=== PATIENT | male | born 1935 | race Caucasian/White ===

== ENCOUNTER 2017-03-08 17:39 | Emergency (ER) | payer OTHER | END 2017-03-08 18:00 | disposition left against medical advice (07) | LOC: C.EDB 17:40 | DX: Z53.21 Procedure and treatment not carried out due to patient leaving prior to being seen by health care provider (principal) ==

== ENCOUNTER → 2017-03-17 | Outpatient (CLI) | payer OTHER, MEDICARE ==
--- NOTE | 2017-03-17 10:49 | DIAGNOSTIC IMAGING REPORT ---
PET/CT HEAD AND NECK PROTOCOL CLINICAL HISTORY: Head and neck cancer. TECHNIQUE: A PET/CT was performed from the skull vertex through the upper thighs following intravenous injection of 13.02 mCi of F 18 FDG IV. The injection was performed at 7:41 AM on March 17, 2017 and imaging began at 8:45 AM on March 17, 2017. Unenhanced CT was performed for attenuation correction purposes and anatomic localization. COMPARISON STUDY: None. FINDINGS: Head and neck: No intracranial masses are identified on this unenhanced CT. Note is made of a 3.9 x 2.7 cm mass centered within the right palatine tonsils shown on axial image 22 of 267. This has marked FDG uptake with an SUV max of 9.2. No additional mucosal lesions are identified on this examination. There is a mildly enlarged right level 2 cervical lymph node shown on image 24 that measures 1.7 x 1.2 cm. This has moderate FDG uptake with an SUV max of 4. No additional enlarged cervical lymph nodes are present. There are no additional sites of abnormal FDG uptake within the neck. Chest: No enlarged thoracic lymph nodes are present. The heart is mildly enlarged. Extensive coronary artery calcification is noted. Mild dilatation of the ascending aorta, measuring 4 cm at the level the main pulmonary artery is noted. There are no suspicious pulmonary nodules although lungs are suboptimally assessed due to respiratory motion. Moderate emphysema is present. Groundglass opacities favor atelectasis. There is no pneumothorax or pleural effusion. Abdomen and Pelvis: No abnormal FDG uptake is identified within the abdomen or pelvis. Marked left renal atrophy is noted likely on the basis of renal artery stenosis. A 1.8 cm partially calcified abnormality of the mid to lower pole of the left kidney is noted with adjacent linear soft tissue stranding. This could reflect post therapeutic change. This lesion is suboptimal assessed on this exam but has no significant FDG uptake. There is a probable 1.4 cm right renal cyst although this is suboptimally assessed on this exam. No abdominal or pelvic lymphadenopathy is present. This extensive atherosclerotic plaque of the aortoiliac system. Gallstones are noted within the gallbladder. There is moderate asymmetric wall thickening of the right posterior lateral wall the bladder. An associated 2 cm focus protruding from the wall the bladder could reflect a diverticulum. This appears slightly complex. There are postsurgical findings involving the rectum. There is no bowel obstruction. A 3.8 cm water attenuation tubular serpiginous abnormality of the posterior right thigh has no FDG uptake. This is likely benign. Musculoskeletal: No suspicious skeletal lesions are identified. IMPRESSION: 1. 3.9 x 2.7 cm FDG avid right palatine tonsillar mass suggestive of a primary head and neck malignancy. 2. Mildly enlarged right level 2 cervical lymph node which demonstrates moderate FDG uptake which is highly suggestive of xiomara spread of disease. No contralateral lymphadenopathy. No evidence of distant metastatic disease. 3. Moderate asymmetric wall thickening of the right posterolateral wall of the bladder with a possible associated diverticulum which appears slightly complex. These findings are nonspecific and could be correlated with cystoscopy to exclude a urothelial lesion. 4. Moderate emphysema. 5. Marked left renal atrophy likely on the basis of renal artery stenosis. 1.8 cm partially calcified left renal lesion which may reflect a treated renal lesion. No abdominal lymphadenopathy. Electronically signed by: Dwain Gonzalez M.D. 03/17/2017 10:48 AM Dictated Date/Time: 03/17/2017 9:58 AM
== END | disposition home or self-care (01) ==
LOC: C.PET 06:58
PROVIDERS: ATTEND Internal Medicine
DX: C32.9 Malignant neoplasm of larynx, unspecified (principal)

== ENCOUNTER 2024-07-09 10:18 | Inpatient (IN) ==
--- OUTSIDE RECORDS SUMMARY | 2024-07-09 10:25 | External Medical Summary | Summary of Care ---
Author Name Unknown Organization [facility] Address [address] [facility] [place] [address] Phone [phone] Care Team Providers Care Needle Grinder Name Role Phone Sunny Hatfield DO Primary Care Provider Reason for Visit * Reason Comments Follow Up 7 month follow up. B P labile- when high will get a headache and when low will off balance and bump into things. SOB noticeable with any exertion. Denies chest pain, edema and palpitations. Encounter Details Date Type Department Care Team (Latest Contact Info) Description 03/27/2024 3:00 PM EDT Office Visit Cardiology, [facility] [address] [place] [address] Yassine Mock PA-C [address] [place] [address] Uncontrolled hypertension*; ASCVD (arteriosclerotic cardiovascular disease); Dyslipidemia, goal LDL below 70; HTN, goal below 130/80; Hx of CABG; History of tobacco abuse Allergies Active Allergy Reactions Criticality Noted Date Comments Ciprofloxacin Nausea/vomiting 06/30/2012 Iodinated Contrast Media 01/31/2020 IVP DYE kidney issues documented as of this encounter (statuses as of 03/28/2024) Medications Medication Sig Dispensed Refills Start Date End Date Status nitroglycerin (NITROSTAT) 0.4 MG SUBL 2 02/11/2017 Active Fluticasone-Salm eterol 250-50 MCG/DOSE Inhalation Aerosol Powder Breath Activated 2 times a day. Acti ve aspirin enteric coated 81 MG TBEC Take by mouth 2 times a day. Active acetaminophen (TYLENOL) 500 MG Tablet Take by mouth as needed. Active Albuterol Sulfate HFA 108 (90 Base) MCG/ACT Inhalation Aerosol Solution daily as needed. 08/22/2007 Ac tive Simethicone 80 MG Oral Tablet Chewable Take 1 Tablet by mouth every 6 hours as needed for Gas. Active Tamsulosin HCl 0.4 MG Oral Capsule (Flomax)Indicati ons:Urinary retention Take 1 Capsule by mouth in the morning. 90 Capsule 3 08/05/2023 Active Rosuvastatin Calcium 20 MG Oral Tablet (Crestor) Take 1 Tablet by mouth in the morning. 90 Tablet 3 08/05/2023 Active Lisinopril 5 MG Oral Tablet (Prinivil) Take 1 Tablet by mouth in the morning. 90 Tablet 3 08/05/2023 Active Finasteride 5 MG Oral Tablet (Proscar) Take 1 Tablet by mouth in the morning. 90 Tablet 3 08/05/2023 Active Clopidogrel Bisulfate 75 MG Oral Tablet (Plavix) Take 1 Tablet by mouth in the morning. 30 Tablet 11 08/05/2023 Active Metoprolol Succinate ER 25 MG Oral Tablet Extended Release 24 Hour (toPROL XL) Take 1 Tablet by mouth in the morning. 90 Tablet 3 08/05/2023 Active Additional Information Patient taking differently:25 mg OralBID (.AM/PM), Reported on 03/27/2024 amLODIPine Besylate 5 MG Oral Tablet (Norvasc) Take 1 Tablet by mouth in the morning and 1 Tablet before bedtime. 180 Tablet 3 03/07/2024 Active Additional Information Patient taking differently:5 mg OralDaily(AM), Reported on 03/27/2024 Pantoprazole Sodium 40 MG Oral Tablet Delayed Release (Protonix)Indica tions:Gastroesop hageal reflux disease without esophagitis Take 1 Tablet by mouth in the morning and 1 Tablet before bedtime. 60 Tablet 03/17/2024 Active Isosorbide Dinitrate 5 MG Oral Tablet (Isordil) Take one tablet in the morning, early afternoon, and early evening 270 Tablet 3 03/27/2024 Active hydrALAZINE HCl 10 MG Oral Tablet (Apresoline) Take 1 Tablet by mouth in the morning and 1 Tablet at noon and 1 Tablet before bedtime. 270 Tablet 3 03/27/2024 Active Isosorbide Dinitrate 10 MG Oral Tablet (Isordil) Take 1 Tablet by mouth 2 times a day. 180 Tablet 3 03/17/2024 4 Discontinued documented as of this encounter (statuses as of 03/28/2024) Active Problems Problem Noted Date Diagnosed Date Chronic kidney disease, stage 3b 08/30/2023 Overview: Per CKD protocol Sacroiliitis 08/05/2023 Chronic obstructive pulmonary disease 08/05/2023 Benign hypertension with chronic kidney disease, stage IV 08/05/2023 Asymptomatic carotid artery stenosis 12/09/2022 ASCVD (arteriosclerotic cardiovascular disease) 11/04/2020 Hx of CABG 11/04/2020 History of tobacco abuse 11/04/2020 HTN, goal below 130/80 11/04/2020 Dyslipidemia, goal LDL below 70 11/04/2020 Benign essential hypertension 07/07/2019 Peripheral vascular disease 07/07/2019 Coronary artery disease involving coronary bypas s graft 07/07/2019 Encounter for antineoplastic chemotherapy 2016 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 03/19 Cancer Staging:Clinical stage from 04/26/2017:Stage II(A - Asymptomatic) - Signed by Jorgito Moncada MD on 04/26/2017 documented as of this encounter (statuses as of 03/28/2024) Resolved Problems Problem Noted Date Diagnosed Date Resolved Date Chronic renal impairment, stage 3b 08/05/2023 09/02/2023 Chronic renal insufficiency, stage III (moderate) 07/07/2019 09/02/2023 Overview: Per CKD protocol documented as of this encounter (statuses as of 03/28/2024) Immunizations Name Administration Dates Next Due COVID-19 mRNA, LNP-s, No Pre serve, 2-Dose Series (Moderna) 09/24/2020,08/20/2020 Pneumococcal Polysaccharide PPV23 (Pneumovax) 11/02/2018,04/01/2017 RSV Vac., Recomb, Adjuvant, PF,0.5 Ml (Arexvy) 07/28/2023 Seasonal Influenza, PF, 6 M & above, IM , (FluLaval or Fluzone) 04/30/2023 Seasonal Influenza, Quadriva lent Hd, 65+ Yrs 04/24/2022,04/23/2021,04/13/2020 Seasonal Influenza, Recombin ant, RIV4, PF, (Flublock) 05/03/2019,04/29/2018 Seasonal Influenza, Trivalen t, (IIV3), with Preserv, (Fluzone) 04/13/2020 Varicella Zoster Vaccine (Adult) 06/18/2013 Zoster Vaccine Recombinant (Shingrix) 08/08/2020 ,05/31/2020 documented as of this encounter Social History Tobacco Use Types Packs/Day Years Used Date Smoking Tobacco: Former Cigarettes 1 30 0 01/16/1966 - 01/17/1996 Smokeless Tobacco: Never Alcohol Use Standard Drinks/Week Comments No 0 (1 standard drink = 0.6 oz pur e alcohol) Utilities Answer Date Recorded Do you have trouble paying y our heating, water, or electric bill? (Adult - for ages 18 years and over) Not on file 01/04/2024 Is your family able to pay t he heat, water, or electric bill? (Household - for ages 0-17 years) Not on file 01/04/2024 Does your family have access to good internet? (Household - for ages 0-17 years) Not on file 01/04/2024 Social Connections Answer Date Recorded How often do you feel lonely or isolated from those around you? (Adult - for ages 18 years and over) Not on file 01/04/2024 Sex and Gender Information Value Date Recorded Sex Assigned at Not on file Gender Identity Not on file Sexual Orientation Not on file Job Start Date Occupation Industry Not on file Not on file Not on file documented as of this encounter Last Filed Vital Signs Vital Sign Reading Time Taken Comments Blood Pressure 184/78 03/27/2024 2:45 PM EDT Pulse 64 03/27/2024 2:45 PM EDT Temperature - - Respiratory Rate 16 03/27/2024 2:45 PM EDT Oxygen Saturation - - Inhaled Oxygen Concentration - - Weight 68.3 kg (150 lb 8 oz) 03/27/2024 2:45 PM EDT Height - - Body Mass Index 23.86 02/24/2024 11:49 AM EDT documented in this encounter Functional Status Functional Status Response Date of Assess ment Are you deaf or do you have serious difficulty h earing? No 07/07/2019 Are you blind or do you have serious difficulty seeing, even when wearing glasses? No 07/07/2019 Do you have serious difficul ty walking or climbing stairs? (5 years old or older) No 07/07/2019 Do you have difficulty dress ing or bathing? (5 years old or older) No 07/07/2019 Because of a physical, menta l, or emotional condition, do you have difficulty doing errands alone such as visiting a doctor s office or shopping? (15 years old or older) No 07/07/20 19 Cognitive Status Response Date of Assessm ent Because of a physical, menta l, or emotional condition, do you have serious difficulty concentrating, remembering, or making decisions? (5 years old or older) No 07/07/2019 documented as of this encounter Progress Notes * Yassine Mock PA-C - 03/27/2024 3:11 PM EDT History of Present Illness: Manish Quinn is a very pleasant 89-year-old male who returns today for routine cardiology follow-up. Blood pressures have been elevated of late. Isordil 5 mg twice per day added without difficulty. Patient unable to tolerate up titration of Isordil to 10 mg twice per day due to dizziness, GI upset. Daughter recently changed it to 5 mg TID with good tolerance noted. No chest pain. No sublingual nitroglycerin. No tachypalpitations. Stable shortness of breath. No resting or nocturnal dyspnea. No fluid retention. No unilateral complaints to suggest TIA / CVA. No syncope. No melena or hematochezia. Past Medical and Surgical History Atherosclerotic heart disease Numerous prior cardiac catheterizations Status post PTCA of an unknown vessel on 03/04/1995 Status post CABG x 3 on 01/24/1997 Status post proximal LCX stenting Status post mid LCX stenting Status post left main coronary artery stenting (03/27/2019) Nonrheumatic mitral regurgitation Systolic and diastolic heart failure. Peripheral artery disease, followed by [facility] TIA in 2008 High grade right internal carotid artery stenosis, managed medically. Mild left internal carotid artery stenosis Status post bilateral common iliac artery stenting by Dr. Pham at [facility] on 06/09/2011 for low back and hip discomfort with ambulation Status post June 2019 balloon angioplasty left NAN/EIA stenting by Dr. Pride Hypertension Dyslipidemia Chronic kidney disease, stage IV Status post left kidney cryoablation, 07/30/2010 Mantle cell lymphoma status post chemotherapy Chronic obstructive pulmonary disease Carpal tunnel syndrome 12/21/2013 Degenerative joint disease Spinal stenosis Gastro-esophageal reflux disease Barretts esophagus Esophageal stricture Gastritis Large hiatal hernia BPH with LUTS Status post cataract extractions Family History: CAD in his mother ( at 83) and father ( at 40 with an WI). Brother with cancer, CAD. Maternal grandfather with CAD. Social History: Reformed smoker, quit on 07/19/1995, 30 pack years of smoking. No smokeless tobacco use. No alcohol. No illegal drug use. . [employer], [employer], [employer] [facility], [place]. His son, Andre, is an RN. Complete Review of Systems: Hard of hearing. Complete review of systems is as stated above, negative, or noncontributory. Daughter Irma Brand is a SAMPLE FINISHER at [employer]. Review of patient's allergies indicates: Allergen Reactions Ciprofloxacin Nausea/vomiting Iodinated Contrast Media IVP DYE kidney issues Current Outpatient Medications Medication Sig Dispense Refill aspirin enteric coated 81 MG TBEC Take by mouth 2 times a day. Tamsulosin HCl 0.4 MG Oral Capsule (Flomax) Take 1 Capsule by mouth in the morning. 90 Capsule 3 Rosuvastatin Calcium 20 MG Oral Tablet (Crestor) Take 1 Tablet by mouth in the morning. 90 Tablet 3 Lisinopril 5 MG Oral Tablet (Prinivil) Take 1 Tablet by mouth in the morning. 90 Tablet 3 Finasteride 5 MG Oral Tablet (Proscar) Take 1 Tablet by mouth in the morning. 90 Tablet 3 Clopidogrel Bisulfate 75 MG Oral Tablet (Plavix) Take 1 Tablet by mouth in the morning. 30 Tablet 11 Metoprolol Succinate ER 25 MG Oral Tablet Extended Release 24 Hour (toPROL XL) Take 1 Tablet by mouth in the morning. (Patient taking differently: Take 1 Tablet by mouth in the morning and 1 Tablet before bedtime.) 90 Tablet 3 amLODIPine Besylate 5 MG Oral Tablet (Norvasc) Take 1 Tablet by mouth in the morning and 1 Tablet before bedtime. (Patient taking differently: Take 1 Tablet by mouth in the morning.) 180 Tablet 3 Pantoprazole Sodium 40 MG Oral Tablet Delayed Release (Protonix) Take 1 Tablet by mouth in the morning and 1 Tablet before bedtime. 60 Tablet 0 Isosorbide Dinitrate 5 MG Oral Tablet (Isordil) Take one tablet in the morning, early afternoon, and early evening 270 Tablet 3 hydrALAZINE HCl 10 MG Oral Tablet (Apresoline) Take 1 Tablet by mouth in the morning and 1 Tablet at noon and 1 Tablet before bedtime. 270 Tablet 3 nitroglycerin (NITROSTAT) 0.4 MG SUBL (Patient not taking: Reported on 03/27/2024) 2 Fluticasone-Salmeterol 250-50 MCG/DOSE Inhalation Aerosol Powder Breath Activated 2 times a day. acetaminophen (TYLENOL) 500 MG Tablet Take by mouth as needed. Albuterol Sulfate HFA 108 (90 Base) MCG/ACT Inhalation Aerosol Solution daily as needed. Simethicone 80 MG Oral Tablet Chewable Take 1 Tablet by mouth every 6 hours as needed for Gas. No current facility-administered medications for this visit. OBJECTIVE/PHYSICAL EXAMINATION: BP 184/78 | Pulse 64 | Resp 16 | Wt 68.3 kg (150 lb 8 oz) | BMI 23.86 kg/m | BSA 1.79 m General: Hard of hearing. NAD. Comfortable and cooperative Eyes: PER. Conjunctiva pink, sclera clear. Back: Cystic mass, right posterior shoulder. HENT: Normocephalic. Atraumatic. Neck: Bilateral carotid bruits. No JVD. No HJR. Heart: RRR 64 bpm. Soft systolic murmur. No rub. No gallop. PMI is nondisplaced. Lungs: Diminished. Decreased. No abnormal breath sounds auscultated. Abdomen: +BS. Soft. Nontender. No masses. No organomegaly. Extremities: No significant edema. No clubbing. No cyanosis Pulses: radial=2/4, posterior tibial=0/4. Limited neurological examination: No focal deficit. Data: March 27, 2019 Cardiac Catheterization: Status post left main stenting. Status post LCX stenting. Patent [place] to LAD patent. Occluded RCA with collaterals from the left system. All the vein graftswere occluded. LVEF 50%. ASSESSMENT: Hypertension, uncontrolled ASCVD. Stable Nonrheumatic mitral regurgitation. Chart history of systolic and diastolic heart failure. Compensated volume status Peripheral artery disease, followed by Vascular Surgery, managed medically. Dyslipidemia Chronic kidney disease, stage IV Status post left kidney cryoablation, 07/30/2010 Mantle cell lymphoma status post chemotherapy Chronic obstructive pulmonary disease Large hiatal hernia. RECOMMENDATIONS/PLAN: Change Isordil to 5 mg three times per day Add Hydralazine 10 mg three times per day for additional blood pressure control Continue dual anti-platelet therapy with aspirin and clopidogrel indefinitely. Continue conservative cardiac medical management. Routine cardiology follow-up in 6 months or as needed. ER with emergencies. Yassine Mock PA-C Department of Cardiology I spent a total of 30-39 minutes (exact time 30 mins) on the date of service in preparation, delivery, and documentation of the care provided to Manish Quinn excluding any time spent in the performance of separately billed services. This visit involved medical care services related to at least one serious condition or complex condition requiring ongoing care. This chart was completed in part utilizing [employer] Speech Voice Recognition Software. Grammatical errors, random word insertions, prounoun errors, and incomplete sentences are an occasional consequence of this system due to software limitations, ambient noise, and hardware issues. Any formal questions or concerns about the content, text, or information contained within the body of this dictation should be directly addressed to the provider for clarification. documented in this encounter Nursing Notes * Wilfred Paulson LPN - 03/27/2024 2:44 PM EDT Patient identified by full name and date of Chief Complaint Patient presents with Follow Up 7 month follow up. BP labile- when high will get a headache and when low will off balance and bump into things. SOB noticeable with any exertion. Denies chest pain, edema and palpitations. Examination Room: 3 Name: Manish Quinn Date of : (1935). Reason for Visit: Follow up Interim Hospitalization(s): Denies Problems/Concerns: See chief complaint Chest Pain/SOB: See chief complaint [facility] Discussed: Not applicable [facility] is a way you can talk to your provider online through e-mail. Would you like to sign up? I can activate it for you? ALREADY ACTIVE Patient was instructed to not get up on the exam table until directed and assisted by their provider; patient is to remain seated in the chair/ wheelchair/ exam table for fall prevention and safety reasons. Patient is aware to have assistance to step down off exam table with personnel. Patient voiced full comprehension of instructions. documented in this encounter Plan of Treatment Upcoming Encounters Date Type Department Care Team (Late st Contact Info) Description 07/20/2024 1:15 PM EST Office Visit Hematology/Oncology [facility] [address] [facility] [place] [id number] Jorgito Moncada MD [address] [place] [address] 07/27/2024 3:00 PM EST Office Visit Cardiology, [facility] [address] [place] [address] Yassine Mock PA-C [address] [place] [address] 08/08/2024 1:00 PM EST Office Visit Family Practice [facility] [address] [place] [phone] Sunny Hatfield DO [address] [place] [address] Health Maintenance Due Date Last Done Comments Depression Screening 1947 Alpha-1 Antitrypsin 02/19/1954 DTap/Tdap Vaccines (1 - Tdap) 02/19/1955 Adult Wellness Visit 02/19/2002 Pneumococcal Vaccine: 65+ Years (3 of 3 - PCV) 11/03/2019 11/02/2018, 04/01/2017 COVID-19 Vaccine (3 - Moderna risk series) 10/22/2020 09/24/2020, 08/20/2020 *COPD SEVERITY VERIFIED BY PFT 08/07/2023 *NEPHROLOGY REFERRAL DUE TO RESISTANT HTN 01/20/2024 Influenza Vaccine (FLU shot) (#1) 2024 04/30/2023, 04/24/2022, 04/23/2021, Additional history exists O2 ASSESSMENT COMPLETED IN PAST YEAR FOR COPD 02/02/2025 02/03/2024 Albumin/Creatinine Ratio 03/07/2025 03/07/2024, 07/19 Zoster Vaccines Completed 08/08/2020, 05/19, 06/18/2013 HPV (Gardasil) Vaccine Aged Out No lo nger eligible based on patient's age to complete this topic Hepatitis B Vaccine Aged Out No longe r eligible based on patient's age to complete this topic MENINGOCOCCAL (MENACTRA/MENVEO) Aged Out No longer eligible based on patient's age to complete this topic documented as of this encounter Medical Devices Implanted Type Area Ticketing Agent Device Identifier Shelf Expiration Date Model / Serial / Lot Stent Viabahn [id number] 135cm - [id number] Implanted:06/19 by Francisca Pride MD at OR [facility] (Quantity not on file) [employer] [id number] 12/06/2021 [id number] / [id number] / [id number] Graft Stent Viab 7mmx7.5cm - [id number] Implanted:06/19 by Francisca Pride MD at OR [facility] (Quantity not on file) [employer] [id number] 01/26/2022 [id number] / [id number] / [id number] documented as of this encounter Visit Diagnoses Diagnosis Uncontrolled hypertension- Primary Unspecified essential hypertension ASCVD (arteriosclerotic cardiovascular disease) Unspecified cardiovascular disease Dyslipidemia, goal LDL below 70 Other and unspecified hyperlipidemia HTN, goal below 130/80 Unspecified essential hypertension Hx of CABG Postsurgical aortocoronary bypass status History of tobacco abuse Personal history of tobacco use, presenting hazards to health documented in this encounter Advance Directives Documents on File Type Date Recorded Patient Hospitality Manager Expl anation Advance Directives and Living Will 03/27/2014 LIVING WILL Power of Multi Care Technician 03/27/2014 POWER OF A TTORNEY DURABLE HEALTH CARE POA * Full Code (Latest Code Status on File) Date Activated Date Inactivated Comments 07/07/2019 11:09 AM 07/08/2019 2:52 PM This orde r reflects the patients wishes and were consensually agreed upon. Care Teams Needle Grinder Relationship Specialty Start Date End Date Sunny Hatfield DO [address] [place] [address] PCP - General Family Medicine 08/05/23 documented as of this encounter"
--- OUTSIDE RECORDS SUMMARY | 2024-07-09 10:25 | External Medical Summary | Summary of Care ---
Author Name Unknown Organization [facility] Address [address] [facility] [place] [address] Phone [phone] Care Team Providers Care Dispatcher Refinery Name Role Phone Sunny Hatfield Primary Care Provider Reason for Visit * Reason Comments NEW PATIENT Voice Change Encounter Details Date Type Department Care Team (Late st Contact Info) Description 02/24/2024 12:00 PM EDT Office Visit Otolaryngology [facility] [address] [place] [address] Isaiah Rodríguez DO [address] [place] [address] Bilateral impacted cerumen*; Presbylarynx Allergies Active Allergy Reactions Criticality Noted Date Comments Ciprofloxacin Nausea/vomiting 06/30/2012 Iodinated Contrast Media 01/31/2020 IVP DYE kidney issues documented as of this encounter (statuses as of 02/24/2024) Medications Medication Sig Dispensed Refills Start Date End Date Status nitroglycerin (NITROSTAT) 0.4 MG SUBL 2 02/11/2017 Active Fluticasone-Salmetero l 250-50 MCG/DOSE Inhalation Aerosol Powder Breath Activated 2 times a day. Active aspirin enteric coated 81 MG TBEC Take by mouth 2 times a day. Active acetaminophen (TYLENOL) 500 MG Tablet Take by mouth as needed. Active Albuterol Sulfate HFA 108 (90 Base) MCG/ACT Inhalation Aerosol Solution daily as needed. 08/22/2007 Active Simethicone 80 MG Oral Tablet Chewable Take 1 Tablet by mouth every 6 hours as needed for Gas. Active Tamsulosin HCl 0.4 MG Oral Capsule (Flomax)Indications:U rinary retention Take 1 Capsule by mouth in [...] the morning. 90 Tablet 3 08/05/2023 Active amLODIPine Besylate 5 MG Oral Tablet (Norvasc) Take 1 Tablet by mouth in the morning. 90 Tablet 5 08/05/2023 Active Pantoprazole Sodium 40 MG Oral Tablet Delayed Release (Protonix)Indications :Gastroesophageal reflux disease without esophagitis Take 1 Tablet by mouth daily. 180 Tablet 3 12/29/2023 Active documented as of this encounter (statuses as of 02/24/2024) Active Problems Problem Noted Date Diagnosed Date [...] as of this encounter (statuses as of 02/24/2024) Resolved Problems Problem Noted Date Diagnosed Date Resolved Date Chronic renal impairment, stage 3b 08/05/2023 09/02/2023 Chronic renal insufficiency, stage III (moderate) 07/07/2019 09/02/2023 Overview: Per CKD protocol documented as of this encounter (statuses as of 02/24/2024) Immunizations Name Administration Dates Next Due COVID-19 mRNA, LNP-s, No Pre serve, 2-Dose Series (Moderna) 09/24/2020,08/20/2020 Pneumococcal Polysaccharide PPV23 (Pneumovax) 11/02/2018,04/01/2017 RSV Vac., Recomb, Adjuvant, PF,0.5 Ml (Arexvy) 07/28/2023 Seasonal Influenza, PF, 6 M & above, IM , (FluLaval or Fluzone) 04/30/2023 Seasonal Influenza, Quadriva lent Hd, 65+ Yrs 04/24/2022,04/23/2021,04/13/2020 Seasonal Influenza, Recombin ant, RIV4, PF, (Flublock) 05/03/2019,04/29/2018 Seasonal Influenza, Split, I IV3, With Preserve, Inj 04/13/2020 Varicella Zoster Vaccine (Adult) 06/18/2013 Zoster [...] Sign Reading Time Taken Comments Blood Pressure - - Pulse - - Temperature 35.8 C (96.4 F) 02/24/2024 11:49 AM E DT Respiratory Rate - - Oxygen Saturation - - Inhaled Oxygen Concentration - - Weight 67.9 kg (149 lb 9.6 oz) 02/24/2024 11:49 AM EDT Height 169.2 cm (5' 6.6") 02/24/2024 11:49 AM ED T Body Mass Index 23.71 02/24/2024 11:49 AM EDT documented in this [...] as of this encounter Progress Notes * Isaiah Rodríguez, - 02/24/2024 12:32 PM EDT 02/24/2024 HISTORY OF PRESENT ILLNESS This 89 year old male is seen at the request of Sunny Hatfield DO for the initial evaluation of hoarseness. Patient has a history of MALT lymphoma. Is followed by hematology Oncology. They requestedan evaluation of his larynx because of his ongoing hoarseness. Patient denies any soreness to the throat. Denies any odynophagia. Denies any hemoptysis.. 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) Encounter for antineoplastic chemotherapy Benign essential hypertension Peripheral vascular disease (HCC) Coronary artery disease involving coronary bypass graft ASCVD (arteriosclerotic cardiovascular disease) Hx of CABG History of tobacco abuse HTN, goal below 130/80 Dyslipidemia, goal LDL below 70 Asymptomatic carotid artery stenosis Sacroiliitis (HCC) Chronic obstructive pulmonary disease (HCC) Benign hypertension with chronic kidney disease, stage IV (HCC) Chronic kidney disease, stage 3b (HCC) Past Medical History: Diagnosis Date Dyslipidemia Hx-TIA (transient ischemic attack) Hypertension Past Surgical History: Procedure Laterality Date AORTOGRAM ABDOMINAL-TECH ONLY N/A 07/07/2019 IMAGING SUPERVISION & INTERPRETATION ABDOMINAL AO performed by Francisca Pride MD at OR [facility] CARDIAC CATH SCANNED RESULT 09/28/2003 2 Cypher drug eluding cardiac stents COLONOSCOPY, DIAGNOSTIC (RECTUM) 04/02/2017 inflammation on bx, diverticulosis/COLONOSCOPY FLEXIBLE PROXIMAL DIAGNOSTIC performed by Marika Olivarez DO at ENDOSCOPY [facility] EGD, FLEXIBLE, DIAGNOSTIC 07/01/2012 UPPER GI ENDOSCOPY DIAGNOSTIC performed by Marika Olivarez DO at ENDOSCOPY [facility] EGD, FLEXIBLE, DIAGNOSTIC 08/24/2013 ESOPHAGOGASTRODUODENOSCOPY (EGD), FLEXIBLE, TRANSORAL, DIAGNOSTIC performed by Marika Olivarez DO at ENDOSCOPY [facility] EGD, FLEXIBLE, DIAGNOSTIC 12/21/2014 mild gastritis, HH/ESOPHAGOGASTRODUODENOSCOPY (EGD), FLEXIBLE, TRANSORAL, DIAGNOSTIC performed by Marika Olivarez DO at ENDOSCOPY [facility] EGD, FLEXIBLE, DIAGNOSTIC 06/25/2016 HH, normal/ESOPHAGOGASTRODUODENOSCOPY (EGD), FLEXIBLE, TRANSORAL, DIAGNOSTIC performed by Marika Olivarez DO at ENDOSCOPY [facility] EGD, FLEXIBLE, DIAGNOSTIC 04/02/2017 inflammation/ESOPHAGOGASTRODUODENOSCOPY (EGD), FLEXIBLE, TRANSORAL, DIAGNOSTIC performed by Marika Ellis DO at ENDOSCOPY [facility] EGD, FLEXIBLE, DIAGNOSTIC 09/19/2020 Abnormal esophageal motility, hiatal hernia / [facility] FEM/POP ARTERY REVASC W/ STENT+ANGIOPLASTY Left 07/07/2019 FEM/POP ARTERY REVASC W/ STENT+ANGIOPLASTY performed by Francisca Pride MD at OR [facility] INFORMATION Left 07/30/2010 cryoablation left kidney IR ARTERIOGRAM EXTREMITY UNILATERAL Left 07/07/2019 IMAGING SUPERVISION & INTERPRETATION EXTREMITY UNILATERAL performed by Francisca Pride MD at OR [facility] LUMBAR / SACRAL EPIDURAL, SINGLE LEVEL 10/27/2013 INJECTION TRANSFORAMINAL EPIDURAL LUMBAR OR SACRAL performed by Margarito Lyon, DO at OR [facility] REMOVE CATARACT, INSERT LENS PROSTH JULIUS-Dr. Juan SACROILIAC JOINT INJECT W/GUIDANCE 05/08/2019 INJECTION SACROILIAC JOINT performed by Margarito Lyon, DO at OR [facility] SACROILIAC JOINT INJECT W/GUIDANCE 06/01/2019 INJECTION SACROILIAC JOINT performed by Margarito Lyon, DO at OR [facility] SACROILIAC JOINT INJECT W/GUIDANCE 04/04/2020 INJECTION SACROILIAC JOINT performed by Margarito Lyon, DO at OR [facility] SACROILIAC JOINT INJECT W/GUIDANCE 05/13/2020 INJECTION SACROILIAC JOINT performed by Margarito Lyon, DO at OR [facility] SACROILIAC JOINT INJECT W/GUIDANCE 02/06/2021 INJECTION SACROILIAC JOINT performed by Margarito Lyon, DO at OR [facility] SACROILIAC JOINT INJECT W/GUIDANCE 04/15/2022 INJECTION SACROILIAC JOINT performed by Margarito Lyon, DO at OR [facility] Medications Current Outpatient Medications Medication Sig Dispense Refill nitroglycerin (NITROSTAT) 0.4 MG SUBL 2 Fluticasone-Salmeterol 250-50 MCG/DOSE Inhalation Aerosol Powder Breath Activated 2 times a day. aspirin enteric coated 81 MG TBEC Take by mouth 2 times a day. acetaminophen (TYLENOL) 500 MG Tablet Take by mouth as needed. Albuterol Sulfate HFA 108 (90 Base) MCG/ACT Inhalation Aerosol Solution daily as needed. Simethicone 80 MG Oral Tablet Chewable Take 1 Tablet by mouth every 6 hours as needed for Gas. Tamsulosin HCl 0.4 MG Oral Capsule (Flomax) [...] mouth in the morning. 90 Tablet 3 amLODIPine Besylate 5 MG Oral Tablet (Norvasc) Take 1 Tablet by mouth in the morning. 90 Tablet 5 Pantoprazole Sodium 40 MG Oral Tablet Delayed Release (Protonix) Take 1 Tablet by mouth daily. 180 Tablet 3 No current facility-administered medications for this visit. Allergies Review of patient's allergies indicates: Allergen Reactions Ciprofloxacin Nausea/vomiting Iodinated Contrast Media IVP DYE kidney issues Family History Family History Problem Relation Name Age of Onset Gastro-intestinal disorder Grandmother (Maternal) Genitourinary Disorder Grandfather (Maternal) Eye Problems Mother AMD Glaucoma None Social History Social History Tobacco Use Smoking status: Former Current packs/day: 0.00 Average packs/day: 1 pack/day for 30.0 years (30.0 ttl pk-yrs) Types: Cigarettes Start date: 01/16/1966 Quit date: 01/17/1996 Years since quittin.1 Smokeless tobacco: Never Substance Use Topics Alcohol use: No Vaping/E-Cigarette Use Vaping/E-Cigarette Use Never User Vaping/E-Cigarette Substances Vaping/E-Cigarette Devices Review of Systems Negative for constitutional, eyes, cardiac, pulmonary, hepatic, renal, digestive, hematologic, epileptic, syncopal, musculo-skeletal, mental health, integumentary, hypertensive, lipid, arthritic, diabetic, thyroid, or neurologic disorders (except as listed in the PMH and Problem List). Physical Examination: Temp 35.8 C (96.4 F) (Tympanic) | Ht 1.692 m (5' 6.6") | Wt 67.9 kg (149 lb 9.6 oz) | BMI 23.71kg/m | BSA 1.79 m PHYSICAL EXAM General: This is a healthy appearing male who appears his stated age. The patient is alert and appropriately verbally conversant without hoarseness. Face: The face was inspected and no cutaneous masses or lesions were visualized. There was no erythema or edema noted. Facial movement was symmetric without weakness. No skin lesions were detected. There was no sinus tenderness elicited. The parotid and submandibular glands were normal to palpation. Eyes: Extra-ocular muscle function was intact. No nystagmus was observed. Pupils were equal. Cranial Nerves: Cranial nerves II, III, IV, and were noted to be intact via extra-ocular muscle movement testing. Cranial nerve VII noted to be intact and symmetric by facial movement. Nose: Examination of the nose revealed no masses, polyps, mucopus, or other lesion. The nasal septum was non-obstructing. The turbinates were without abnormality. Oral Cavity: Examination of the oral cavity revealed no mass lesions nor infection. The palate was noted to be intact without evidence of clefting. The tongue exhibited normal mobility. Mucosa was moist without lesion. The lips were free of lesion. Gums were free of inflammation. Dentition: Unremarkable Oropharynx: The oral pharynx was free of mass lesion or mucosal abnormality. The palate was noted to be without lesion. The uvula was normal appearing. The tonsils were unremarkable. Ears: Examination of the ears revealed that the auricles were normally formed with no lesions. The external auditory canals were cleaned of any obstructing cerumen. The tympanic membranes were intact and freely mobile to pneumatoscopy. There are no significant retraction pockets. There is no inflammation visualized. No effusions are seen. Neck: Visualization and palpation of the neck revealed no mass lesions, no thyromegaly or thyroid masses. No skin lesions or inflammatory processes were detected. The cervical musculature was normal to palpation. Lymphatics (cervical): There were no palpable lymph nodes in the posterior triangle, submandibular triangle, jugulodigastric region, or central neck. Lungs: Breathing quietly. No use of accessory muscles. Heart: Regular rate. No JVD. Procedure: Due to patient's inability to cooperate with mirror exam or concern for structures otherwise not evaluated, fiberoptic examination of the larynx was performed. The nose was first topically decongested with topical oxymetazoline 0.05% spray and topically anesthetized with topical Lidocaine 4% spray. Nasopharynx was visualized and was without masses or lesions. Fiberoptic examination revealed no mass lesions. 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 Vocal cord mobility was normal without paralysis or paresis. There was no significant edema or erythema of the larynx. No vocal cord masses were visualized. Exam was negative for post cricoid or pyriform sinuses lesions. The patient tolerated the procedure well. Patient should refrain from eating or drinking for 30-45 minutes due to anesthesia of the pharynx and possible interference with swallowing. Procedure: In order to assess ears in further detail, the patient was brought to the microscope room and the ears were evaluated under the operating microscope. The findings are as noted in the above physical exam. Procedure: Cerumen removal Attention directed to the right ear. Under diane-microscopic guidance the impacted cerumen was removed with a curette atraumatically. The tympanic membrane was intact and the middle ear was healthy appearing. The same procedure was performed on the other side. Patient tolerated the procedure well. 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 Follow-up p.r.n. I spent a total of 30 minutes on the date of service in preparation, delivery, and documentation ofthe care provided to the above patient, excluding any time spent on the performance of any procedures or separately billable services. Isaiah Rodríguez DO, [facility] [employer], Department of Otolaryngology-Head and Neck Surgery [facility], [place] 02/24/2024 12:35 PM documented in this encounter Nursing Notes * Haily Curran LPN - 02/24/2024 11:44 AM EDT Chief Complaint Patient presents with NEW PATIENT Voice Change Pt presents today with son for evaluation of his voice. Pt has Hx lymphoma of tonsil. Chemo therapycompleted 2016. Having Hoarseness, voice is getting weaker. Pt not eating well, dysphagia. No throat pain. No night sweats. Has fatigue. Having wt loss. Was at avp at the [place] for hearing test., was told ears were impacted would like them checked. documented in this encounter Plan of Treatment Upcoming Encounters Date Type Department Care Team (Late st Contact Info) Description 02/29/2024 12:15 PM EDT Imaging Radiology [facility] [address] [facility] [place] [address] 03/27/2024 3:00 PM EDT Office Visit Cardiology, [facility] [address] [facility] [place] [address] Yassine Mock PA-C [address] [place] [address] 07/20/2024 1:15 PM EST Office Visit Hematology/Oncology [facility] [address] [facility] [place] [phone] Jorgito Moncada MD [address] [facility] [place] [address] 08/08/2024 1:00 PM EST Office Visit Family Practice [facility] [address] [facility] [place] [address] Sunny Hatfield DO [address] [facility] [place] [address] Health Maintenance Due Date Last Done Comments Depression Screening 1947 Alpha-1 Antitrypsin 02/19/1954 DTaP,Tdap,and Td Vaccines (1 - Tdap) 02/19/1954 Adult Wellness Visit 02/19/2002 Pneumococcal Vaccine: 65+ Years (3 of 3 - PCV) 11/03/2019 11/02/2018, 04/01/2017 COVID-19 Vaccine (3 - Moderna risk series) 10/22/2020 09/24/2020, 08/20/2020 *COPD SEVERITY VERIFIED BY PFT 08/07/2023 *NEPHROLOGY REFERRAL DUE TO RESISTANT HTN 01/20/2024 Influenza Vaccine (FLU shot) (#1) 2024 04/30/2023, 04/24/2022, 04/23/2021, Additional history exists Albumin/Creatinine Ratio 08/05/2024 08/05/2023 O2 ASSESSMENT COMPLETED IN PAST YEAR FOR COPD 02/02/2025 02/03/2024 Zoster Vaccines Completed 08/08/2020, 05/19, 06/18/2013 HPV [...] this encounter Medical Devices Implanted Type Area Ekg Manager Device Identifier Shelf Expiration Date Model / Serial / Lot Stent Viabahn [id number] 135cm - [id number] Implanted:06/19 by Francisca Pride MD at OR [facility] (Quantity not on file) [employer] [id number] 12/06/2021 [id number] / [id number] / [id number] Graft Stent Viab 7mmx7.5cm - [id number] Implanted:06/19 by Francisca Pride MD at OR [facility] (Quantity not on file) [employer] [id number] 01/26/2022 [id number] / [id number] / [id number] documented as of this encounter Visit Diagnoses Diagnosis Bilateral impacted cerumen- Primary Impacted cerumen Presbylarynx Other diseases of larynx documented in this encounter Advance Directives Documents on File Type Date Recorded Patient Automotive Diagnostic Technician Expl anation Advance Directives and Living Will 03/27/2014 LIVING WILL Power of Tire Specialist 03/27/2014 POWER OF A TTORNEY DURABLE HE[employer] CARE POA * Full Code (Latest Code Status on File) Date Activated Date Inactivated Comments 07/07/2019 11:09 AM 07/08/2019 2:52 PM This orde r reflects the patients wishes and were consensually agreed upon. Care Teams Dispatcher Refinery Relationship Specialty Start Date End Date Sunny Hatfield DO [address] [place] [address] PCP - General Family Medicine 08/05/23 documented as of this encounter
--- OUTSIDE RECORDS SUMMARY | 2024-07-09 10:25 | External Medical Summary | Summary of Care ---
Author Name Unknown Organization [facility] Address [address] [facility] [place] [address] Phone [phone] Care Team Providers Care Artificial Limb Fitter Name Role Phone Sunny Hatfield Primary Care Provider Reason for Visit * Reason Onset Date Comments Test Results 03/16/2024 Encounter Details Date Type Department Care Team (Late st Contact Info) Description 03/16/2024 Telephone Cardiology, [facility] [address] [place] [address] Yassine Mock PA-C [address] [place] [id number] Test Results Allergies Active Allergy Reactions Criticality Noted Date Comments Ciprofloxacin Nausea/vomiting 06/30/2012 Iodinated Contrast Media 01/31/2020 IVP DYE kidney issues documented as of this encounter (statuses as of 03/17/2024) Medications Medication Sig Dispensed Refills Start Date End Date Status nitroglycerin (NITROSTAT) 0.4 MG SUBL 2 02/11/2017 Active Fluticasone-Salmet carmelita 250-50 MCG/DOSE Inhalation Aerosol Powder Breath Activated [...] Active Tamsulosin HCl 0.4 MG Oral Capsule (Flomax)Indication s:Urinary retention Take 1 Capsule by mouth in [...] before bedtime. 180 Tablet 3 03/07/2024 Active Isosorbide Dinitrate 10 MG Oral Tablet (Isordil) Take 1 Tablet by mouth 2 times a day. 180 Tablet 3 03/17/2024 Active Pantoprazole Sodium 40 MG Oral Tablet Delayed Release (Protonix)Indicati ons:Gastroesophage al reflux disease without esophagitis Take 1 Tablet by mouth in the morning and 1 Tablet before bedtime. 180 Tablet 3 02/29/2024 03/17/2024 Discontinued (Refill) Isosorbide Dinitrate 5 MG Oral Tablet (Isordil) Take 1 Tablet by mouth 2 times a day. 180 Tablet 3 03/08/2024 03/17/2024 Discontinued (Refill) documented as of this encounter (statuses as of 03/17/2024) Active Problems Problem Noted Date Diagnosed Date [...] as of this encounter (statuses as of 03/17/2024) Resolved Problems Problem Noted Date Diagnosed Date Resolved Date Chronic renal impairment, stage 3b 08/05/2023 09/02/2023 Chronic renal insufficiency, stage III (moderate) 07/07/2019 09/02/2023 Overview: Per CKD protocol documented as of this encounter (statuses as of 03/17/2024) Immunizations Name Administration Dates Next Due COVID-19 [...] on file documented as of this encounter Functional Status Functional Status Response [...] No 07/07/2019 documented as of this encounter Miscellaneous Notes * Telephone Encounter - Wilfred Paulson LPN - 03/17/2024 1:25 PM EDT Sent patient a MyChart reply to make aware. Pended. * Telephone Encounter - Yassine Mock PA-C - 03/17/2024 12:50 PM EDT Increase Isordil to 10 mg twice a day Will consider further titration of isordil versus addition of hydralazine at upcoming appointment if needed. Yassine Mock PA-C Department of Cardiology * Telephone Encounter - Wilfred Paulson LPN - 03/17/2024 9:40 AM EDT Please see patient's MyChart reply. * Telephone Encounter - Wilfred Paulson LPN - 03/16/2024 4:39 PM EDT Sent patient a [employer] message to make aware. Awaiting reply. ----- Message from Yassine Mock sent at 03/16/2024 4:33 PM EDT ----- Kidney function has improved. Potassium unknown (specimen hemolyzed) Continue increased free water intake How have blood pressures been with recent medication adjustments? documented in this encounter Plan of Treatment Upcoming Encounters Date Type Department Care Team (Late st Contact Info) Description 03/27/2024 3:00 PM EDT Office Visit Cardiology, [facility] [address] [place] [address] Yassine Mock PA-C [address] [place] [address] 07/20/2024 1:15 PM EST Office Visit Hematology/Oncology [facility] [address] [place] [phone] Jorgito Moncada MD [address] [place] [address] 08/08/2024 1:00 PM EST Office Visit Family Practice [facility] [address] [place] [address] Sunny Hatfield DO [address] [place] [address] Health Maintenance Due Date Last Done Comments [...] this encounter Medical Devices Implanted Type Area Fisher Weir Device Identifier Shelf Expiration Date Model / Serial / Lot Stent Viabahn [id number] 135cm - [id number] Implanted:06/19 by Francisca Pride MD at OR [facility] [place] (Quantity not on file) [employer] [id number] 12/06/2021 [id number] / [id number] / [id number] Graft Stent Viab 7mmx7.5cm - [id number] Implanted:06/19 by Francisca Pried MD at OR [facility] (Quantity not on file) [employer] [id number] 01/26/2022 [id number] / [id number] / [id number] documented as of this encounter Advance Directives Documents on File Type Date Recorded Patient Information Services Consultant Expl anation Advance Directives and Living Will 03/27/2014 LIVING WILL Power of Judge'S Clerk 03/27/2014 POWER OF A TTORNEY DURABLE HEALTH CARE POA * Full Code (Latest Code Status on File) Date Activated Date Inactivated Comments 07/07/2019 11:09 AM 07/08/2019 2:52 PM This orde r reflects the patients wishes and were consensually agreed upon. Care Teams Artificial Limb Fitter Relationship Specialty Start Date End Date Sunny Hatfield DO [address] [place] [address] PCP - General Family Medicine 08/05/23 documented as of this encounter
--- OUTSIDE RECORDS SUMMARY | 2024-07-09 10:25 | External Medical Summary ---
Author Name Unknown Address Unknown Organization K0G:[facility] [address] [place] [address] Laboratory Report Ordering Provider Test Date Status YULIET ROTH 03/16/2024 11:00:21 Final Observation Date Value Abnormality Reference (Units ) Status BUN 03/16/2024 11:00:21 51 Above high normal 6-20 (mg/dL) Final Creatinine 03/16/2024 11:00:21 2.5 Above high normal 0.6-1.2 (mg/dL) Final Glomerular filtration rate/1.73 sq M.predicted [Volume Rate/Area] in Serum, Plasma or Blood by Creatinine-based formula (CKD-EPI) 03/16/2024 11:00:21 24 Below low normal >=60 (mL/min) Final eGFR is calculated based on the CKD-EPI 2020 equation. Sodium 03/16/2024 11:00:21 137 135-146 (m mol/L) Final Potassium 03/16/2024 11:00:21 Final Specimen too hemolyzed. Reor yulia if needed. Cl 03/16/2024 11:00:21 106 98-107 (mm ol/L) Final CO2 03/16/2024 11:00:21 21 Below low normal 22- 32 (mmol/L) Final Anion gap 03/16/2024 11:00:21 10 7-15 (mmol /L) Final Glucose 03/16/2024 11:00:21 105 70-120 (mg /dL) Final Calcium 03/16/2024 11:00:21 9.5 8.4-10.2 ( mg/dL) Final Performing Location [facility] [address] [place] [address]
--- OUTSIDE RECORDS SUMMARY | 2024-07-09 10:25 | External Medical Summary | Summary of Care ---
Author Name Unknown Organization [facility] Address [address] [facility] [place] [address] Phone [phone] Care Team Providers Care Lead Sharepoint Developer Name Role Phone Sunny Hatfield DO Primary Care Provider Reason for Visit * Reason Onset Date Comments Advice 02/22/2024 Encounter Details Date Type Department Care Team (Late st Contact Info) Description 02/22/2024 Telephone Family Practice [facility] [address] [place] [address] Sunny Hatfield DO [address] [place] [address] Advice Allergies Active Allergy Reactions Criticality Noted Date [...] encounter Miscellaneous Notes * Telephone Encounter - Kristina Hatfield OSA - 02/23/2024 6:45 AM EDT See other encounter on pt, nurse sent him a my g with results * Telephone Encounter - Karina Montelongo OSA - 02/22/2024 4:23 PM EDT Patient called demanding to be transferred onsite Attempted to reach clinic but no answer Patient states has been on the phone for over 20min attempting to be connected to the clinic and does not wish to speak with an offsite agent Would only advise the reason for the call was an ongoing issue about allowing someone to verify upcoming appointment information ... Unsure if this is for transport purposes or caregiver assistance possibly - patient would not elaborate He is requesting return call @ [phone] documented in this encounter Plan of Treatment Upcoming Encounters Date Type Department Care Team (Late st Contact Info) Description 02/24/2024 12:00 PM EDT Office Visit Otolaryngology [facility] [address] [place] [address] Isaiah Rodríguez, [address] [place] [address] 02/29/2024 12:15 PM EDT Imaging Radiology [facility] [address] [place] [address] 03/27/2024 3:00 PM EDT Office Visit Cardiology, [facility] [address] [place] [address] Yassine Mock PA-C [address] [place] [address] 07/20/2024 1:15 PM EST Office Visit Hematology/Oncology [facility] [address] [facility] [place] [phone] Jorgito Moncada MD [address] [facility] [place] [address] 08/08/2024 1:00 PM EST Office Visit Family Practice [facility] [address] [place] [address] Sunny Hatfield, [address] [place] [address] Health Maintenance Due Date Last Done Comments [...] this encounter Medical Devices Implanted Type Area Spa Manager Device Identifier Shelf Expiration Date Model / Serial / Lot Stent Viabahn [id number] 135cm - [id number] Implanted:06/19 by Francisca Pride MD at OR [facility] [place] (Quantity not on file) [employer] [id number] 12/06/2021 [id number] / [id number] / [id number] Graft Stent Viab 7mmx7.5cm - [id number] Implanted:06/19 by Francisca Pride MD at OR [facility] (Quantity not on file) [employer] [id number] 01/26/2022 [id number] / [id number] / [id number] documented as of this encounter Advance Directives Documents on File Type Date Recorded Patient Glove Wrapper Expl anation Advance Directives and Living Will 03/27/2014 LIVING WILL Power of Sales Research Analyst 03/27/2014 POWER OF A TTORNEY DURABLE HEALTH CARE POA * Full Code (Latest Code Status on File) Date Activated Date Inactivated Comments 07/07/2019 11:09 AM 07/08/2019 2:52 PM This orde r reflects the patients wishes and were consensually agreed upon. Care Teams Lead Sharepoint Developer Relationship Specialty Start Date End Date Sunny Hatfield DO [address] [place] [address] PCP - General Family Medicine 08/05/23 documented as of this encounter
--- OUTSIDE RECORDS SUMMARY | 2024-07-09 10:25 | External Medical Summary ---
Author Name Unknown Address Unknown Organization [facility] [address] [place] [address] Laboratory Report Ordering Provider Test Date Status CORIE MARTINEZ 03/07/2024 11:44:09 Final Observation Date Value Abnormality Reference (Units ) Status BUN 03/07/2024 11:44:09 48 Above high normal 6-20 (mg/dL) Final Creatinine 03/07/2024 11:44:09 2.9 Above high normal 0.6-1.2 (mg/dL) Final Glomerular filtration rate/1.73 sq M.predicted [Volume Rate/Area] in Serum, Plasma or Blood by Creatinine-based formula (CKD-EPI) 03/07/2024 11:44:09 21 Below low normal >=60 (mL/min) Final eGFR is calculated based on the CKD-EPI 2020 equation. Sodium 03/07/2024 11:44:09 136 135-146 (m mol/L) Final Potassium 03/07/2024 11:44:09 5.1 3.5-5.1 (m mol/L) Final Cl 03/07/2024 11:44:09 102 98-107 (mm ol/L) Final CO2 03/07/2024 11:44:09 21 Below low normal 22- 32 (mmol/L) Final Anion gap 03/07/2024 11:44:09 13 7-15 (mmol /L) Final Glucose 03/07/2024 11:44:09 91 70-120 (mg /dL) Final Calcium 03/07/2024 11:44:09 9.7 8.4-10.2 ( mg/dL) Final Performing Location [facility] [address] [place] [address]
--- OUTSIDE RECORDS SUMMARY | 2024-07-09 10:25 | External Medical Summary | Summary of Care ---
Author Name Unknown Organization [facility] Address [address] [facility] [place] [address] Phone [phone] Care Team Providers Care Him Tech Name Role Phone Vidal Hatifeldvor Sharon Primary Care Provider Reason for Visit * Reason Comments Outpatient Testing Encounter Details Date Type Department Care Team (Late st Contact Info) Description 03/07/2024 12:20 PM EDT Laboratory Laboratory, [facility] [address] [facility] [place] [phone] [facility] [address] [facility] [place] [address] Stage 4 chronic kidney disease (HCC) Allergies Active Allergy Reactions Criticality Noted Date Comments Ciprofloxacin Nausea/vomiting 06/30/2012 Iodinated Contrast Media 01/31/2020 IVP DYE kidney issues documented as of this encounter (statuses as of 03/07/2024) Medications Medication Sig Dispensed Refills Start Date [...] Tablet before bedtime. 180 Tablet 3 02/29/2024 Active documented as of this encounter (statuses as of 03/07/2024) Active Problems Problem Noted Date Diagnosed Date [...] as of this encounter (statuses as of 03/07/2024) Resolved Problems Problem Noted Date Diagnosed Date Resolved Date Chronic renal impairment, stage 3b 08/05/2023 09/02/2023 Chronic renal insufficiency, stage III (moderate) 07/07/2019 09/02/2023 Overview: Per CKD protocol documented as of this encounter (statuses as of 03/07/2024) Immunizations Name Administration Dates Next Due COVID-19 [...] No 07/07/2019 documented as of this encounter Plan of Treatment Upcoming Encounters Date Type Department Care Team (Late st Contact Info) Description 03/27/2024 3:00 PM EDT Office Visit Cardiology, [facility] [address] [place] [address] Yassine Mock PA-C [address] [place] [address] 07/20/2024 1:15 PM EST Office Visit Hematology/Oncology [facility] [place] [address] [place] [phone] Jorgito Moncada MD [address] [place] [address] 08/08/2024 1:00 PM EST Office Visit Family [facility] [address] [place] [address] Sunny Hatfield, [address] [place] [address] Pending Results Name Type Priority Associated Diagnoses Date /Time BASIC METABOLIC PANEL Lab Routine Stage 4 chronic kidney disease (HCC) 03/07/2024 11:44 AM EDT ALBUMIN / CREATININE RATIO, URINE Lab Routine Stage 4 chronic kidney disease (HCC) 03/07/2024 11:54 AM EDT Health Maintenance Due Date Last Done Comments [...] this encounter Medical Devices Implanted Type Area President/Gm Production & Live Experiences Device Identifier Shelf Expiration Date Model / Serial / Lot Stent Viabahn [id number] 135cm - [id number] Implanted:06/19 by Francisca Pride MD at [place] [facility] [place] ([place] not on file) [employer] [id number] 12/06/2021 [id number] / [id number] / [id number] Graft Stent Viab 7mmx7.5cm - [id number] Implanted:06/19 by Fracnisca Pride MD at [place] [facility] [place] ([place] not on file) [employer] [id number] 01/26/2022 [id number] / [id number] / [id number] documented as of this encounter Visit Diagnoses Diagnosis Stage 4 chronic kidney disease (HCC) documented in this encounter Advance Directives Documents on File Type Date Recorded 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 Care Teams Him Tech Relationship Specialty Start Date End Date Sunny Hatfield DO [address] [place] [address] PCP - General Family Medicine 08/05/23 documented as of this encounter
--- OUTSIDE RECORDS SUMMARY | 2024-07-09 10:25 | External Medical Summary | Summary of Care ---
Author Name Unknown Organization [facility] Address [address] [facility] [place] [address] Phone [phone] Care Team Providers Care Speaker Mounter Name Role Phone Vidal Hatfieldvor Sharon Primary Care Provider Reason for Visit * Reason Onset Date Comments Follow Up 03/07/2024 Blood Pressure Encounter Details Date Type Department Care Team (Late st Contact Info) Description 03/07/2024 Telephone Cardiology, [facility] [address] [place] [address] Yassine Mock, PA-C [address] [facility] [place] [id number] Follow Up (Blood Pressure) Allergies Active Allergy Reactions Criticality Noted Date Comments Ciprofloxacin Nausea/vomiting 06/30/2012 Iodinated Contrast Media 01/31/2020 IVP DYE kidney issues documented as of this encounter (statuses as of 03/08/2024) Medications Medication Sig Dispensed Refills Start Date End Date Status nitroglycerin (NITROSTAT) 0.4 MG SUBL 2 02/11/2017 Active Fluticasone-Salme terol 250-50 MCG/DOSE Inhalation Aerosol Powder Breath Activated [...] Active Tamsulosin HCl 0.4 MG Oral Capsule (Flomax)Indicatio ns:Urinary retention Take 1 Capsule by mouth in [...] the morning. 90 Tablet 3 08/05/2023 Active Pantoprazole Sodium 40 MG Oral Tablet Delayed Release (Protonix)Indicat ions:Gastroesopha geal reflux disease without esophagitis Take 1 Tablet by mouth in the morning and 1 Tablet before bedtime. 180 Tablet 3 02/29/2024 Active amLODIPine Besylate 5 MG Oral Tablet (Norvasc) Take 1 Tablet by mouth in the morning and 1 Tablet before bedtime. 180 Tablet 3 03/07/2024 Active amLODIPine Besylate 5 MG Oral Tablet (Norvasc) Take 1 Tablet by mouth in the morning. 90 Tablet 5 08/05/2023 03/07/2024 Discontinued documented as of this encounter (statuses as of 03/08/2024) Active Problems Problem Noted Date Diagnosed Date [...] as of this encounter (statuses as of 03/08/2024) Resolved Problems Problem Noted Date Diagnosed Date Resolved Date Chronic renal impairment, stage 3b 08/05/2023 09/02/2023 Chronic renal insufficiency, stage III (moderate) 07/07/2019 09/02/2023 Overview: Per CKD protocol documented as of this encounter (statuses as of 03/08/2024) Immunizations Name Administration Dates Next Due COVID-19 [...] encounter Miscellaneous Notes * Telephone Encounter - Yassine Mock PA-C - 03/07/2024 5:44 PM EDT Spoke with son in clinic earlier today and via telephone tonight. Patient asymptomatic. Labs with worsening renal dysfunction. Limited oral intake noted. Elevated blood pressure observed, again asymptomatic. Prefers outpatient management. Unable to increase metoprolol dosing due to resting heart rate Hesitant to increase lisinopril dosing noting renal dysfunction, borderline hyperkalemia Patient experienced nausea with prior use of isosorbide mononitrate Increase amlodipine to 5 mg TWICE a per day Reduced dietary sodium intake Son to monitor blood pressure and report readings If blood pressure remains elevated would next retry nitrates via Isordil 5 mg BID-TID then considerhydralazine, 12.5 mg TID to start. Yassine Mock PA-C Department of Cardiology * Telephone Encounter - Alondra Springer CMA - 03/07/2024 10:48 AM EDT Patient's BP was checked using manual BP cuff: 190/88 * Telephone Encounter - Alondra Springer CMA - 03/07/2024 8:48 AM EDT Patient's daughter, Irma, stopped into the clinic with concerns regarding patient's blood pressure. She states his BP has been running in the 190's-200's systolic and 90's diastolic. He complains of head pressure, pounding headaches. BP last evening was 210/99. Daughter states she gave patient an extra 5 mg of lisinopril and an extra 2.5 mg of amlodipine lastnight for his elevated BP without significant improvement. She is concerned especially with patient's renal and vascular disease. He is scheduled for a renal US today at 1130. Cardiology f/u scheduled 03/27. She is asking for recommendations in the meantime. documented in this encounter Plan of Treatment Upcoming Encounters Date Type Department Care Team (Late st Contact Info) Description 03/27/2024 3:00 PM EDT Office Visit [facility]iology, [facility] [place] [address] Yassine Mock PA-C [address] [place] [address] 07/20/2024 1:15 PM EST Office Visit Hematology/Oncology [facility] [address] [facility] [place], [place] [phone] Jorgito Moncada MD [address] [facility] [place] [address] 08/08/2024 1:00 PM EST Office Visit Family [facility] [address] [place] [address] Sunny Hatfield, [address] [place] [address] Health Maintenance Due Date Last Done Comments [...] this encounter Medical Devices Implanted Type Area Dairy Farm Supervisor Device Identifier Shelf Expiration Date Model / Serial / Lot Stent Viabahn [id number] 135cm - [id number] Implanted:06/19 by Francisca Pride MD at [place] [facility] [place] not on file) [employer] [id number] 12/06/2021 [id number] / [id number] / [id number] Graft Stent Viab 7mmx7.5cm - [id number] Implanted:06/19 by Francisca Pride MD at [place] [facility] [place] (Quantity not on file) [employer] [id number] 01/26/2022 [id number] / [id number] / [id number] documented as of this encounter Advance Directives Documents on File Type Date Recorded Patient Loan Officer Assistant Expl anation Advance Directives and Living Will 03/27/2014 LIVING WILL Power of Catshovel Driver 03/27/2014 POWER OF A TTORNEY DURABLE HEALTH CARE POA * Full Code (Latest Code Status on File) Date Activated Date Inactivated Comments 07/07/2019 11:09 AM 07/08/2019 2:52 PM This orde r reflects the patients wishes and were consensually agreed upon. Care Teams Speaker Mounter Relationship Specialty Start Date End Date Sunny Hatfield DO [address] [place] [address] PCP - General Family Medicine 08/05/23 documented as of this encounter
--- OUTSIDE RECORDS SUMMARY | 2024-07-09 10:25 | External Medical Summary | Summary of Care ---
Author Name Unknown Organization [facility] Address [address] [facility] [place] [address] Phone [phone] Care Team Providers Care Scrap Iron Cutter Name Role Phone Sunny Hatfield DO Primary Care Provider Reason for Visit * Reason Onset Date Comments Hypertension 03/02/2024 Advice Encounter Details Date Type Department Care Team (Late st Contact Info) Description 03/02/2024 Telephone Family Practice [facility] [address] [place] [address] Sunny Hatfield DO [address] [place] [address] Hypertension (Advice ) Allergies Active Allergy Reactions Criticality Noted Date [...] encounter Miscellaneous Notes * Telephone Encounter - Lexus Dukes LPN - 03/07/2024 3:47 PM EDT See other TE * Telephone Encounter - Sunny Hatfield DO - 03/02/2024 6:17 PM EDT [facility] Do we need to weigh in, or are they going to manage His elevated BP?? * Telephone Encounter - Lilian Streeter LPN - 03/02/2024 11:23 AM EDT Anthony called from [place] with concerns about BP: In there office today. Is BP high or low: High-Right arm, sitting, 162/82 then waited 4 min's then recheck Left arm sitting 160/82 When did it start: Last week per diastolic reading > 90 Monitoring BP at home: Yes- checks BP 2 hrs after HTN med's If yes, has your BP monitor been compared to our manual office reading to check for accuracy: Yes Wrist or arm cuff BP monitor: Arm Recent stress/life changes: No Lightheaded: No Blurred vision: No Headaches: No Chest pains: No Nose bleeds: No SOB: No Palpitations: No Tachycardia: No Recent med changes: No -Review meds and confirm doses- Taking all meds as directed: Yes Drinks Sugary drinks and Does not watch salt intake. Patient has been educated several times. [place] request Med list to be fax Faxed to [place] [phone], received confirmation that the transmission was successful. Cardiology apt 03/27 Please advise * Telephone Encounter - Tre Zendejas OSA - 03/02/2024 11:21 AM EDT Reason for patient's call: Anthony from [place] [facility] requests to talk with nurse. Caller was transferred to [facility] at the nurse line. documented in this encounter Plan of Treatment Upcoming Encounters Date Type Department Care Team (Late st Contact Info) Description 03/27/2024 3:00 PM EDT Office Visit Cardiology, [facility] [address] [place] [address] Yassine Mock PA-C [address] [place] [address] 07/20/2024 1:15 PM EST Office Visit Hematology/Oncology [facility] [address] [facility] [place] [address] Jorgito Moncada MD [address] [place] [address] 08/08/2024 1:00 PM EST Office Visit Family Practice [facility] [address] [place] [address] Sunny Hatfield DO [address] [place] [address] Health Maintenance Due Date Last Done Comments [...] this encounter Medical Devices Implanted Type Area Interactive Web Developer Device Identifier Shelf Expiration Date Model / Serial / Lot Stent Viabahn [id number] 135cm - [id number] Implanted:06/19 by Francisca Pride MD [place] [facility] [place] not on file) [employer] [id number] 12/06/2021 [id number] / [id number] / [id number] Graft Stent Viab 7mmx7.5cm - [id number] Implanted:06/19 by Francisca Pride MD at [place] [facility] [place] not on file) [employer] [id number] 01/26/2022 [id number] / [id number] / [id number] documented as of this encounter Advance Directives Documents on File Type Date Recorded 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 Care Teams Scrap Iron Cutter Relationship Specialty Start Date End Date Sunny Hatfield DO [address] [place] [address] PCP - General Family Medicine 08/05/23 documented as of this encounter
--- OUTSIDE RECORDS SUMMARY | 2024-07-09 10:25 | External Medical Summary | Summary of Care ---
Author Name Unknown Organization [facility] Address [address] [facility] [place] [address] Phone [phone] Care Team Providers Care Back Office Medical Assistant Name Role Phone Sunny Hatfieldnoemy Primary Care Provider Reason for Visit * Reason Comments Follow Up Encounter Details Date Type Department Care Team (Late st Contact Info) Description 06/27/2024 9:00 AM EST Office Visit Cardiology, [facility] [address] [place] [address] Prasanna Ruiz DO [address] [place] [address] Uncontrolled hypertension*; HTN, goal below 150/90; Hx of CABG; Dyslipidemia, goal LDL below 70 Allergies Active Allergy Reactions Criticality Noted Date Comments Ciprofloxacin Nausea/vomiting 06/30/2012 Iodinated Contrast Media 01/31/2020 IVP DYE kidney issues documented as of this encounter (statuses as of 06/27/2024) Medications nitroglycerin (NITROSTAT) 0.4 MG SUBL 2 7 Active Fluticasone-Sa lmeterol 250-50 MCG/DOSE Inhalation Aerosol Powder Breath Activated 2 times a day. Activ e aspirin enteric coated 81 MG TBEC Take by mouth 2 times a day. Active acetaminophen (TYLENOL) 500 MG Tablet Take by mouth as needed. Active Simethicone 80 MG Oral Tablet Chewable Take 1 Tablet by mouth every 6 hours as needed for Gas. Active Tamsulosin HCl 0.4 MG Oral Capsule (Flomax)Indica tions:Urinary retention Take 1 Capsule by mouth in the morning. 90 Capsule 3 4 Active Rosuvastatin Calcium 20 MG Oral Tablet (Crestor) Take 1 Tablet by mouth in the morning. 90 Tablet 3 4 Active Lisinopril 5 MG Oral Tablet (Prinivil) Take 1 Tablet by mouth in the morning. 90 Tablet 3 4 Active Finasteride 5 MG Oral Tablet (Proscar) Take 1 Tablet by mouth in the morning. 90 Tablet 3 4 Active Clopidogrel Bisulfate 75 MG Oral Tablet (Plavix) Take 1 Tablet by mouth in the morning. 30 Tablet 11 4 Active Metoprolol Succinate ER 25 MG Oral Tablet Extended Release 24 Hour (toPROL XL) Take 1 Tablet by mouth in the morning. 90 Tablet 3 4 Active Additional Information Patient taking differently:25 mg OralBID (.AM/PM), Reported on 06/27/2024 amLODIPine Besylate 5 MG Oral Tablet (Norvasc) Take 1 Tablet by mouth in the morning and 1 Tablet before bedtime. 180 Tablet 3 4 Active Additional Information Patient taking differently:5 mg OralDaily(AM), Reported on 06/27/2024 Isosorbide Dinitrate 5 MG Oral Tablet (Isordil) Take one tablet in the morning, early afternoon, and early evening 270 Tablet 3 4 Active Additional Information Patient taking differently: Takes half tablet QID, Reported on 06/27/2024 Pantoprazole Sodium 40 MG Oral Tablet Delayed Release (Protonix) Take 1 Tablet by mouth in the morning. 90 Tablet 1 4 Active Albuterol Sulfate HFA 108 (90 Base) MCG/ACT Inhalation Aerosol Solution Inhale 2 Puffs by mouth every 6 hours as needed for Wheezing. 18 g 6 4 Active Fluticasone-Sa lmeterol 250-50 MCG/ACT Inhalation Aerosol Powder Breath Activated Inhale 1 Puff by mouth in the morning and 1 Puff before bedtime. 1 Each 12 4 Active hydrALAZINE HCl 10 MG Oral Tablet (Apresoline) Take 1 Tablet by mouth in the morning and 1 Tablet at noon and 1 Tablet before bedtime. 310 Tablet 6 4 Active Albuterol Sulfate HFA 108 (90 Base) MCG/ACT Inhalation Aerosol Solution daily as needed. 8 06/27/20 24 Discontin ued(Refil l) hydrALAZINE HCl 10 MG Oral Tablet (Apresoline) Take 1 Tablet by mouth in the morning and 1 Tablet at noon and 1 Tablet before bedtime. 270 Tablet 3 4 06/27/20 24 Discontin ued(Medic ation/Dos e Changed) documented as of this encounter (statuses as of 06/27/2024) Active Problems Problem Noted Date Diagnosed Date [...] as of this encounter (statuses as of 06/27/2024) Resolved Problems Problem Noted Date Diagnosed Date Resolved Date Chronic renal impairment, stage 3b 08/05/2023 09/02/2023 Chronic renal insufficiency, stage III (moderate) 07/07/2019 09/02/2023 Overview: Per CKD protocol documented as of this encounter (statuses as of 06/27/2024) Immunizations Name Administration Dates Next Due COVID-19 mRNA, LNP-s, No Pre serve, 2-Dose Series (Moderna) 09/24/2020,08/20/2020 Pneumococcal Polysaccharide PPV23 (Pneumovax) 11/02/2018,04/01/2017 RSV Vac., Bivalent, Perfusio n F, Pf,0.5 Ml (Abrysvo) 07/28/2023 RSV Vac., Recomb, Adjuvant, PF,0.5 Ml (Arexvy) 07/28/2023 Season Influenza, Quad, PF, Adjuvanted, 65+ Yrs, IM (FLUAD) 05/23/2024 Seasonal Influenza Vac., MDV , IM, 0.5 mL (Fluzone) 04/13/2020 Seasonal Influenza, PF, 6 M & above, IM , (FluLaval or Fluzone) 04/30/2023 Seasonal Influenza, Quadriva lent Hd, 65+ Yrs 04/24/2022,04/23/2021,04/13/2020 Seasonal Influenza, Recombin ant, RIV4, PF, (Flublock) 05/03/2019,04/29/2018 Varicella Zoster Vaccine (Adult) 06/18/2013 Zoster Vaccine Recombinant (Shingrix) 08/08/2020 ,05/31/2020 documented as of this encounter Social History Tobacco Use Types Packs/Day Years Used Date Smoking Tobacco: Former Cigarettes 1 30 0 01/16/1966 - 01/17/1996 Smokeless Tobacco: Never Alcohol Use Standard Drinks/Week Comments No 0 (1 standard drink = 0.6 oz pur e alcohol) Sex and Gender Information Value Date Recorded Sex Assigned at Not on file Legal Sex Male 6:03 AM EST Gender Identity Not on file Sexual Orientation Not on file documented as of this encounter Last Filed Vital Signs Vital Sign Reading Time Taken Comments Blood Pressure 214/106 06/27/2024 8:44 AM EST Pulse 76 06/27/2024 8:44 AM EST Temperature - - Respiratory Rate 16 06/27/2024 8:44 AM EST Oxygen Saturation - - Inhaled Oxygen Concentration - - Weight 66.5 kg (146 lb 8 oz) 06/27/2024 8:44 AM EST Height - - Body Mass Index 23.22 02/24/2024 11:49 AM EDT documented in this encounter Functional Status * Are you deaf or do you have serious difficulty hearing? Answer Date of Assessment Author No 07/07/2019 2:45 PM Sher Dhaliwal RN * Are you blind or do you have serious difficulty seeing, even when wearing glasses? Answer Date of Assessment Author No 07/07/2019 2:45 PM Sher Dhaliwal RN * Do you have serious difficulty walking or climbing stairs? (5 years old or older) Answer Date of Assessment Author No 07/07/2019 2:45 PM Sher Dhaliwal RN * Do you have difficulty dressing or bathing? (5 years old or older) Answer Date of Assessment Author No 07/07/2019 2:45 PM Sher Dhaliwal RN * Because of a physical, mental, or emotional condition, do you have difficulty doing errands alone such as visiting a doctors office or shopping? (15 years old or older) Answer Date of Assessment Author No 07/07/2019 2:45 PM Sher Dhaliwal RN documented as of this encounter Mental Status * Because of a physical, mental, or emotional condition, do you have serious difficulty concentrating, remembering, or making decisions? (5 years old or older) Answer Entry Date Author No 07/07/2019 2:45 PM Sher Dhaliwal RN documented in this encounter Progress Notes * Prasanna Ruiz, - 06/27/2024 9:02 AM EST SUBJECTIVE: Patient returns today for an acute visit regarding uncontrolled hypertension. Most recently evaluated by Yassine Mock PA-C in March. Prescribed hydralazine 10 mg three times daily during that visit in addition to other antihypertensive therapies. First evaluation with the undersigned. Home blood pressure readings averaging 180s/90s. Patient has not been taking hydralazine. Amlodipine prescribed twice daily, however, only taking medication in a.m.. Unable to tolerate Isordil 10 mg twice daily due to dizziness and GI upset. Currently tolerating Isordil 5 mg four times daily. Has not taken any medications prior to this morning's office visit. Denies any headache, chest discomfort, or shortness of breath at rest. SonEulogio present for today's office visit. Reports dyspnea on exertion, occasional wheezing, as well as sporadic episodes of left-sided chest discomfort at rest. Patient denies lightheadedness, dizziness, palpitations, syncope, or near syncope. Son requesting refills of inhalers including albuterol, and Advair. Past Medical and Surgical History Atherosclerotic heart disease Numerous prior cardiac catheterizations Status post PTCA of an unknown vessel on 03/04/1995 Status post CABG x 3 on 01/24/1997 Status post proximal LCX stenting Status post mid LCX stenting Status post left main coronary artery stenting (03/27/2019) Nonrheumatic mitral regurgitation Systolic and diastolic heart failure. Peripheral artery disease, followed by [facility] TIA in 2008 High grade right internal carotid artery stenosis, managed medically. Mild left internal carotid artery stenosis Status post bilateral common iliac artery stenting by Dr. Pham at [facility] on 06/09/2011 for low back and hip [...] and father ( at 40 with an LA). Brother with cancer, CAD. Maternal grandfather with CAD. ROS: All others negative other than those noted in the HPI. Patient Active Problem List Diagnosis Mantle cell [...] (HCC) Chronic kidney disease, stage 3b (HCC) Social History Tobacco Use Smoking status: Former Current packs/day: 0.00 Average packs/day: 1 pack/day for 30.0 years (30.0 ttl pk-yrs) Types: Cigarettes Start date: 01/16/1966 Quit date: 01/17/1996 Years since quittin.4 Smokeless tobacco: Never Vaping Use Vaping status: Never Used Substance Use Topics Alcohol use: No Drug use: No Review of patient's allergies indicates: Allergen Reactions Ciprofloxacin Nausea/vomiting Iodinated Contrast Media IVP DYE kidney issues Current Outpatient Medications Medication Sig Dispense Refill Fluticasone-Salmeterol 250-50 MCG/DOSE Inhalation Aerosol Powder Breath Activated 2 times a day. aspirin enteric coated 81 MG TBEC Take by mouth 2 times a day. Albuterol Sulfate HFA 108 (90 Base) MCG/ACT Inhalation Aerosol Solution daily as needed. Tamsulosin HCl 0.4 MG Oral Capsule (Flomax) [...] mouth in the morning.) 180 Tablet 3 Isosorbide Dinitrate 5 MG Oral Tablet (Isordil) Take one tablet in the morning, early afternoon, and early evening (Patient taking differently: Takes half tablet QID) 270 Tablet 3 Pantoprazole Sodium 40 MG Oral Tablet Delayed Release (Protonix) Take 1 Tablet by mouth in the morning. 90 Tablet 1 nitroglycerin (NITROSTAT) 0.4 MG SUBL (Patient not taking: Reported on 06/27/2024) 2 acetaminophen (TYLENOL) 500 MG Tablet Take by mouth as needed. Simethicone 80 MG Oral Tablet Chewable Take 1 Tablet by mouth every 6 hours as needed for Gas. (Patient not taking: Reported on 06/27/2024) hydrALAZINE HCl 10 MG Oral Tablet (Apresoline) Take 1 Tablet by mouth in the morning and 1 Tablet at noon and 1 Tablet before bedtime. (Patient not taking: Reported on 06/27/2024) 270 Tablet 3 No current facility-administered medications for this visit. Lipid Panel Results: Results for orders placed or performed in visit on 08/05/23 LIPID PANEL WITH DIRECT LDL IF TG IS HIGH Result Value Ref Range Triglycerides 113 <=174 mg/dL Cholesterol 100 <200 mg/dL HDL Cholesterol 31 (L) >39 mg/dL Non-HDL Cholesterol 69 <=159 mg/dL LDL Cholesterol 46 <=129 mg/dL Lab Results Component Value Date/Time TSH - PAMELLA 2.03 11/07/2021 03:02 PM CBC Results: Results for orders placed or performed in visit on 01/18/24 CBC Result Value Ref Range WBC 6.49 4.00 - 10.80 K/uL RBC 4.39 4.50 - 5.25 M/uL HGB 13.4 (L) 14.0 - 16.8 g/dL HCT 40.6 40.0 - 48.4 % MCV 92.5 82.0 - 99.5 fL MCH 30.5 27.0 - 34.0 pg MCHC 33.0 32.0 - 36.0 g/dL RDW 13.3 11.5 - 15.5 % PLT 210 140 - 400 K/uL MPV 9.9 6.6 - 11.1 fL OBJECTIVE/PHYSICAL EXAMINATION: BP 214/106 (BP Site: Left Arm, BP Position: Sitting) | Pulse 76 | Resp 16 | Wt 66.5 kg (146 lb 8 oz) | BMI 23.22 kg/m | BSA 1.77 m General: NAD, AAO x3, well nourished. HEENT: Normocephalic. Atraumatic. Conjunctiva pink, no scleral icterus. 3/6 right-sided carotid bruit. The carotid upstrokes are brisk. No JVD. No HJR Heart: Regular normal S-1 and S-2 no S-3 or S-4 gallop. No murmurs or rubs appreciated. PMI is not displaced. No RV heave. Lungs: Clear bilateral without rales , rhonchi, or wheeze. Abdomen: Normal bowel sounds. Soft. Nontender. No masses or organomegaly. No abdominal bruits. Extremities: Trace to mild left ankle edema. Pulses: radial=2/4. Neuro: No focal deficits. ASSESSMENT: 1. Uncontrolled hypertension -longstanding with average home blood pressure readings 180s/90's -unable to tolerate lower blood pressures (SBP<150mmHg) due to dizziness and GI upset. 2. Chronic CAD 3. Asymptomatic severe right internal carotid artery stenosis 4. CKD stage 4 5. COPD / former tobacco use PLAN: Increase amlodipine to 5mg BID. Add hydralazine 10mg TID. Continue isordil dinitrate 5mg QID, metoprolol 25mg BID, and lisinopril 5mg daily. Consider discontinuation of metoprolol in favor of carvedilol pending clinical response. Continue other cardiovascular medications including low-dose aspirin, clopidogrel, and rosuvastatinas ordered. Patient and his son or monitor home blood pressure proximally 2 hours after a.m. medications. Reviewed importance of sodium restriction. All questions answered to their satisfaction. Follow Up: Return in about 4 weeks (around 07/25/2024). I spent a total of 40-54 minutes (exact time 42 mins) on the date of service in preparation, delivery, and documentation of the care provided to Manish Quinn excluding any time spent in the performance of separately billed services or time spent by another provider/QHP. Prasanna Ruiz DO, [facility] Associate Cardiology - Alfredo Vásquez documented in this encounter Nursing Notes * Laya Davis CMA - 06/27/2024 8:44 AM EST Examination Room: 11 Name: Manish Quinn Date of : (1935). Reason for Visit: FU Interim Hospitalization(s): denies Problems/Concerns: Reports issues with labile BP Chest Pain/SOB: denies [facility] Discussed: Not applicable [...] 07/20/2024 1:15 PM EST Office Visit Hematology/Oncology [facility] [address] [facility] [place] [id number] Jorgito Moncada MD [address] [facility] [place] [address] 08/01/2024 10:00 AM EST Office Visit Cardiology, [facility] [address] [place] [address] Prasanna Ruiz, DO [address] [place] [address] 08/08/2024 1:00 PM EST Office Visit Family Practice [facility] [address] [place] [address] Sunny Hatfield, DO [address] [place] [address] Health Maintenance Due Date Last Done Comments Depression Screening 1947 Alpha-1 Antitrypsin 02/19/1954 DTap/Tdap Vaccines (1 - Tdap) 02/19/1955 Adult Wellness Visit 02/19/2002 Pneumococcal Vaccine: 65+ Years (3 of 3 - PCV) 11/03/2019 11/02/2018, 04/01/2017 COVID-19 Vaccine (3 - Moderna risk series) 10/22/2020 09/24/2020, 08/20/2020 *COPD SEVERITY VERIFIED BY PFT 08/07/2023 *NEPHROLOGY REFERRAL DUE TO RESISTANT HTN 01/20/2024 O2 ASSESSMENT COMPLETED IN PAST YEAR FOR COPD 02/02/2025 02/03/2024 Albumin/Creatinine Ratio 03/07/2025 03/07/2024, 07/19 Zoster Vaccines Completed 08/08/2020, 05/19, 06/18/2013 Influenza Vaccine (FLU shot) Completed 11/2023, 04/30/2023, 04/24/2022, Additional history exists HPV (Gardasil) Vaccine Aged Out No lo nger eligible based on patient's age to complete this topic Hepatitis B Vaccine Aged Out No longe r eligible based on patient's age to complete this topic MENINGOCOCCAL (MENACTRA/MENVEO) Aged Out No longer eligible based on patient's age to complete this topic documented as of this encounter Medical Devices Implanted Type Area Flight Radio Operator Device Identifier Shelf Expiration Date Model / Serial / Lot Stent Viabahn [id number] 135cm - [id number] Implanted:06/19 by Francisca Pride MD at [place] [facility] (Quantity not on file) [employer] [id number] 12/06/2021 [id number] / [id number] / [id number] Graft Stent Viab 7mmx7.5cm - [id number] Implanted:06/19 by Francisca Pride MD at [place] [facility] (Quantity not on file) [employer] [id number] 01/26/2022 [id number] / [id number] / [id number] documented as of this encounter Visit Diagnoses Diagnosis Uncontrolled hypertension- Primary Unspecified essential hypertension HTN, goal below 150/90 Hx of CABG Postsurgical aortocoronary bypass status Dyslipidemia, goal LDL below 70 Other and unspecified hyperlipidemia documented in this encounter Advance Directives Documents on File Type Date Recorded Patient Parts Identification Technician Expl anation Advance Directives and Living Will 03/27/2014 LIVING WILL Power of Certified Financial Planner 03/27/2014 POWER OF A TTORNEY DURABLE HEALTH CARE POA * Full Code (Latest Code Status on File) Date Activated Date Inactivated Comments 07/07/2019 11:09 AM 07/08/2019 2:52 PM This orde r reflects the patients wishes and were consensually agreed upon. Care Teams Back Office Medical Assistant Relationship Specialty Start Date End Date Sunny Hatfield DO [address] [place] [address] PCP - General Family Medicine 08/05/23 documented as of this encounter"
--- OUTSIDE RECORDS SUMMARY | 2024-07-09 10:25 | External Medical Summary | Summary of Care ---
Author Name Unknown Organization [facility] Address [address] [facility] [place] [address] Phone [phone] Care Team Providers Care Parimutuel Ticket Checker Name Role Phone Sunny Hatfieldnoemy Primary Care Provider Reason for Referral * Evaluate & Treat - Unlimited Visits (Within 3 days (urgent)) - Authorized Specialty Diagnoses / Procedures Referred By Von lopez Referred To Contact Nephrology Diagnoses Stage 4 chronic kidney disease (HCC) Yany Gallardo CRNP [address] [employer] [place] [id number] Referral ID Status Reason Start Date Expiration Date Visits Requested Visits Authorized [id number] Authorized Specialty Services Required 02/21/[phone] Question Answer Referral Priority Within 3 days (urgent) Where should this appointment be scheduled? [facility] What condition is this patient being seen for? Chronic kidney disease Reason for Visit * Reason Onset Date Comments Referral 02/21/2024 Encounter Details Date Type Department Care Team (Late st Contact Info) Description 02/21/2024 Telephone Family Practice [facility] [address] [place] [address] Yany Gallardo CRNP [address] [place] [address] Referral Allergies Active Allergy Reactions Criticality Noted Date Comments Ciprofloxacin Nausea/vomiting 06/30/2012 Iodinated Contrast Media 01/31/2020 IVP DYE kidney issues documented as of this encounter (statuses as of 02/23/2024) Medications Medication Sig Dispensed Refills Start Date [...] as of this encounter (statuses as of 02/23/2024) Active Problems Problem Noted Date Diagnosed Date [...] as of this encounter (statuses as of 02/23/2024) Resolved Problems Problem Noted Date Diagnosed Date Resolved Date Chronic renal impairment, stage 3b 08/05/2023 09/02/2023 Chronic renal insufficiency, stage III (moderate) 07/07/2019 09/02/2023 Overview: Per CKD protocol documented as of this encounter (statuses as of 02/23/2024) Immunizations Name Administration Dates Next Due COVID-19 [...] Encounter - Kristina Hatfield OSA - 02/23/2024 8:21 AM EDT US was scheduled. Nothing open with nephrology, will sent to the dept to triage/schedule * Telephone Encounter - Lexus Dukes LPN - 02/22/2024 4:41 PM EDT Sent my g * Telephone Encounter - Elida Lopez OSA - 02/22/2024 10:54 AM EDT LM for patient to call back and schedule US and Nepho * Telephone Encounter - Yany Gallardo CRNP - 02/21/2024 11:29 AM EDT Labs show worsening kidney function Would like recheck labs in 3-5 days and renal US Make sure he is drinking plenty of water Please notify and send to scheduling to schedule nephrology visit documented in this encounter Plan of Treatment Upcoming Encounters Date Type Department Care Team (Late st Contact Info) Description 02/24/2024 12:00 PM EDT Office Visit Otolaryngology [facility] [address] [place] [address] Isaiah Rodríguez DO [address] [place] [address] 02/29/2024 12:15 PM EDT Imaging Radiology [facility] [address] [place] [address] 03/27/2024 3:00 PM EDT Office Visit Cardiology, [facility] [address] [place] [address] Yassine Mock PA-C [address] [place] [address] 07/20/2024 1:15 PM EST Office Visit Hematology/Oncology [facility] [address] [facility] [place] [id number] Jorgito Moncada MD [address] [facility] [place] [address] 08/08/2024 1:00 PM EST Office Visit [facility] [address] [place] [address] Sunny Hatfield DO [address] [place] [address] Scheduled Orders Name Type Priority Associated Diagnoses Orde r Schedule ALBUMIN / CREATININE RATIO, URINE Lab Routine Stage 4 chronic kidney disease (HCC) Expected: 02/21/2024 (Approximate), Expires: 2025 BASIC METABOLIC PANEL Lab Routine Stage 4 chronic kidney disease (HCC) Expected: 02/21/2024 (Approximate), Expires: 2025 RENAL Medical Imaging Routine Stage 4 chronic kidney disease (HCC) Expected: 02/21/2024, Expires: 03/23/2025 Scheduled Referrals Name Type Priority Associated Diagnoses Orde r Schedule NEPHROLOGY REFERRAL OP Referral Within 3 days (urgent) Stage 4 chronic kidney disease (HCC) Ordered: 02/21/2024 Health Maintenance Due Date Last Done Comments [...] this encounter Medical Devices Implanted Type Area Battery Repairer Device Identifier Shelf Expiration Date Model / Serial / Lot Stent Viabahn [id number] 135cm - [id number] Implanted:06/19 by Francisca Pride MD at OR [facility] (Quantity not on file) [employer] [id number] 12/06/2021 [id number] / [id number] / [id number] Graft Stent Viab 7mmx7.5cm - [id number] Implanted:06/19 by Francisca Pride MD at OR [facility] (Quantity not on file) [employer] [id number] 01/26/2022 [id number] / [id number] / [id number] documented as of this encounter Visit Diagnoses Diagnosis Stage 4 chronic kidney disease (HCC)- Primary documented in this encounter Advance Directives Documents on File Type Date Recorded Patient Cemetery Warden Expl anation Advance Directives and Living Will 03/27/2014 LIVING WILL Power of High Wire Artist 03/27/2014 POWER OF A TTORNEY DURABLE HEALTH CARE POA * Full Code (Latest Code Status on File) Date Activated Date Inactivated Comments 07/07/2019 11:09 AM 07/08/2019 2:52 PM This orde r reflects the patients wishes and were consensually agreed upon. Care Teams Parimutuel Ticket Checker Relationship Specialty Start Date End Date Sunny Hatfield DO [address] [place] [address] PCP - General Family Medicine 08/05/23 documented as of this encounter
--- OUTSIDE RECORDS SUMMARY | 2024-07-09 10:25 | External Medical Summary | Summary of Care ---
Author Name Unknown Organization [facility] Address [address] [facility] [place] [address] Phone [phone] Care Team Providers Care Operating Engineer Apprentice Name Role Phone Sunny Hatfield Primary Care Provider Reason for Visit * Reason Onset Date Comments Advice 04/06/2024 Encounter Details Date Type Department Care Team (Late st Contact Info) Description 04/06/2024 Telephone Gastroenterology, [facility] [address] [place] [address] Avi Holder DO [address] [place] [address] Advice Allergies Active Allergy Reactions Criticality Noted Date Comments Ciprofloxacin Nausea/vomiting 06/30/2012 Iodinated Contrast Media 01/31/2020 IVP DYE kidney issues documented as of this encounter (statuses as of 04/06/2024) Medications Medication Sig Dispensed Refills Start Date [...] taking differently:5 mg OralDaily(AM), Reported on 03/27/2024 Isosorbide Dinitrate 5 MG Oral Tablet (Isordil) Take one tablet in the morning, early afternoon, and early evening 270 Tablet 3 03/27/2024 Active hydrALAZINE HCl 10 MG Oral Tablet (Apresoline) Take 1 Tablet by mouth in the morning and 1 Tablet at noon and 1 Tablet before bedtime. 270 Tablet 3 03/27/2024 Active Pantoprazole Sodium 40 MG Oral Tablet Delayed Release (Protonix) Take 1 Tablet by mouth in the morning. 90 Tablet 1 04/06/2024 Active Pantoprazole Sodium 40 MG Oral Tablet Delayed Release (Protonix)Indica tions:Gastroesop hageal reflux disease without esophagitis Take 1 Tablet by mouth in the morning and 1 Tablet before bedtime. 60 Tablet 03/28/2024 4 Discontinued documented as of this encounter (statuses as of 04/06/2024) Active Problems Problem Noted Date Diagnosed Date [...] as of this encounter (statuses as of 04/06/2024) Resolved Problems Problem Noted Date Diagnosed Date Resolved Date Chronic renal impairment, stage 3b 08/05/2023 09/02/2023 Chronic renal insufficiency, stage III (moderate) 07/07/2019 09/02/2023 Overview: Per CKD protocol documented as of this encounter (statuses as of 04/06/2024) Immunizations Name Administration Dates Next Due COVID-19 [...] encounter Miscellaneous Notes * Telephone Encounter - Avi Holder DO - 04/06/2024 12:01 PM EDT This patient has a history of a large hiatal hernia and was previously followed by Dr. Olivarez who left our office in the recent past. I have taken the liberty of ordering a refill of his proton pump inhibitor, I think it would be prudent to have him seen 1 of by physician assistants or nurse practitioners in the next 3 months. documented in this encounter Plan of Treatment Upcoming Encounters Date Type Department Care Team (Late st Contact Info) Description 07/20/2024 1:15 PM EST Office Visit Hematology/Oncology [facility] [address] [facility] [place] [address] Jorgito Moncada MD [address] [facility] [place] [address] 07/27/2024 3:00 PM EST Office Visit Cardiology, [facility] [address] [place] [address] Yassine Mock PA-C [address] [place] [address] 08/08/2024 1:00 PM EST Office Visit Family Practice [facility] [address] [place] [address] Sunny Hatfield DO [address] [place] [address] Health Maintenance Due Date Last Done Comments [...] this encounter Medical Devices Implanted Type Area Meat Grinder Device Identifier Shelf Expiration Date Model / Serial / Lot Stent Viabahn [id number] 135cm - [id number] Implanted:06/19 by Francisca Pride MD at [place] [facility] [place] (Quantity not on file) [employer] [id number] 12/06/2021 [id number] / [id number] / [id number] Graft Stent Viab 7mmx7.5cm - [id number] Implanted:06/19 by Francisca Pride MD at [place] [facility] [place] (Quantity not on file) [employer] [id number] 01/26/2022 [id number] / [id number] / [id number] documented as of this encounter Advance Directives Documents on File Type Date Recorded Patient Correction Officer Reformatory Expl anation Advance Directives and Living Will 03/27/2014 LIVING WILL Power of Product Mgr 03/27/2014 POWER OF A TTORNEY DURABLE HEALTH CARE POA * Full Code (Latest Code Status on File) Date Activated Date Inactivated Comments 07/07/2019 11:09 AM 07/08/2019 2:52 PM This orde r reflects the patients wishes and were consensually agreed upon. Care Teams Operating Engineer Apprentice Relationship Specialty Start Date End Date Sunny Hatfield DO [address] [place] [address] PCP - General Family Medicine 08/05/23 documented as of this encounter
--- OUTSIDE RECORDS SUMMARY | 2024-07-09 10:25 | External Medical Summary | Summary of Care ---
Author Name Unknown Organization [facility] Address [address] [facility] [place] [address] Phone [phone] Care Team Providers Care Icicle Machine Operator Name Role Phone Sunny Hatfieldnoemy Primary Care Provider Encounter Details Date Type Department Care Team (Late st Contact Info) Description 03/07/2024 Telephone Family Practice [facility] [address] [place] [address] Yany Gallardo CRNP [address] [place] [address] Allergies Active Allergy Reactions Criticality Noted Date Comments Ciprofloxacin Nausea/vomiting 06/30/2012 Iodinated Contrast Media 01/31/2020 IVP DYE kidney issues documented as of this encounter (statuses as of 03/09/2024) Medications Medication Sig Dispensed Refills Start Date [...] as of this encounter (statuses as of 03/09/2024) Active Problems Problem Noted Date Diagnosed Date [...] as of this encounter (statuses as of 03/09/2024) Resolved Problems Problem Noted Date Diagnosed Date Resolved Date Chronic renal impairment, stage 3b 08/05/2023 09/02/2023 Chronic renal insufficiency, stage III (moderate) 07/07/2019 09/02/2023 Overview: Per CKD protocol documented as of this encounter (statuses as of 03/09/2024) Immunizations Name Administration Dates Next Due COVID-19 [...] Miscellaneous Notes * Telephone Encounter - Lexus Dukse LPN - 03/07/2024 3:48 PM EDT Called patient-- informed of message below. Pt asks me to call son to give message. Called Eulogio @[phone] (RN at [facility])-- they are waiting for Dr. Mock to return call to see if meds need changed. Eulogio said that they are going to wait a little longer on going to the ER, but will if things get worse. * Telephone Encounter - Yany Gallardo CRNP - 03/07/2024 3:46 PM EDT Labs are showing worse kidney function I also saw a message sent today stating BP as high as 200 systolic Given these two issues he needs to go to ER documented in this encounter Plan of Treatment Upcoming Encounters Date Type Department Care Team (Late st Contact Info) Description 03/27/2024 3:00 PM EDT Office Visit Cardiology, [facility] [address] [place] [address] Yassine Mock PA-C [address] [place] [address] 07/20/2024 1:15 PM EST Office Visit Hematology/Oncology [facility] [address] [facility] [place] [phone] Jorgito Moncada MD [address] [facility] [place] [address] 08/08/2024 1:00 PM EST Office Visit Family Practice [facility] [address] [place] [address] Sunny Hatfield DO [address] [place] [address] Health Maintenance Due Date Last Done Comments [...] this encounter Medical Devices Implanted Type Area Wire Temperer Device Identifier Shelf Expiration Date Model / Serial / Lot Stent Viabahn [id number] 135cm - [id number] Implanted:06/19 by Francisca Pride MD at OR [facility] [place] (Quantity not on file) [employer] [id number] 12/06/2021 [id number] / [id number] / [id number] Graft Stent Viab 7mmx7.5cm - [id number] Implanted:06/19 by Francisca Pride MD at OR [facility] [place] (Quantity not on file) [employer] [id number] 01/26/2022 [id number] / [id number] / [id number] documented as of this encounter Advance Directives Documents on File Type Date Recorded Patient Engineering Professor Expl anation Advance Directives and Living Will 03/27/2014 LIVING WILL Power of Critical Systems Technician 03/27/2014 POWER OF A TTORNEY DURABLE HEALTH CARE POA * Full Code (Latest Code Status on File) Date Activated Date Inactivated Comments 07/07/2019 11:09 AM 07/08/2019 2:52 PM This orde r reflects the patients wishes and were consensually agreed upon. Care Teams Icicle Machine Operator Relationship Specialty Start Date End Date Sunny Hatfield DO [address] [place] [address] PCP - General Family Medicine 08/05/23 documented as of this encounter
--- OUTSIDE RECORDS SUMMARY | 2024-07-09 10:25 | External Medical Summary | Summary of Care ---
Author Name Unknown Organization [facility] Address [address] [facility] [place] [address] Phone [phone] Care Team Providers Care Mail Clerks Supervisor Name Role Phone Sunny Hatfield Primary Care Provider Reason for Visit * Reason Onset Date Comments Advice 04/06/2024 Encounter Details Date Type Department Care Team (Late st Contact Info) Description 04/06/2024 Telephone Gastroenterology, [facility] [address] [place] [address] Avi Holder DO [address] [place] [address] Advice Allergies Active Allergy Reactions Criticality Noted [...] encounter Miscellaneous Notes * Telephone Encounter - Mayelin Nicolas OSA - 04/06/2024 3:37 PM EDT Pt unable to make appt at this time and will call back to schedule GUI [place] 04/06/2024 3:37 PM * Telephone Encounter - Avi Holder DO [...] 07/20/2024 1:15 PM EST Office Visit Hematology/Oncology [facility] [address] [facility] [place] [phone] Jorgito Moncada MD [address] [facility] [place] [address] 07/27/2024 3:00 PM EST Office Visit Cardiology, [facility] [address] [place] [address] Yassine Mock PA-C [address] [place] [address] 08/08/2024 1:00 PM EST Office Visit Family Practice [facility] [address] [place] [address] Sunny Hatfield DO [address] [place] [address] Health Maintenance Due Date Last Done Comments [...] this encounter Medical Devices Implanted Type Area Magazine Filler Device Identifier Shelf Expiration Date Model / Serial / Lot Stent Viabahn [id number] 135cm - [id number] Implanted:06/19 by Francisca Pride MD at OR [facility] [place] (Quantity not on file) [employer] [id number] 12/06/2021 [id number] / [id number] / [id number] Graft Stent Viab 7mmx7.5cm - [id number] Implanted:06/19 by Francisca Pride MD at OR [facility] [place] (Quantity not on file) [employer] [id number] 01/26/2022 [id number] / [id number] / [id number] documented as of this encounter Advance Directives Documents on File Type Date Recorded Patient Wind Field Manager Expl anation Advance Directives and Living Will 03/27/2014 LIVING WILL Power of Fur Dry Cleaner 03/27/2014 POWER OF A TTORNEY DURABLE HEALTH CARE POA * Full Code (Latest Code Status on File) Date Activated Date Inactivated Comments 07/07/2019 11:09 AM 07/08/2019 2:52 PM This orde r reflects the patients wishes and were consensually agreed upon. Care Teams Mail Clerks Supervisor Relationship Specialty Start Date End Date Sunny Hatfield DO [address] [place] [address] PCP - General Family Medicine 08/05/23 documented as of this encounter
--- OUTSIDE RECORDS SUMMARY | 2024-07-09 10:25 | External Medical Summary | Summary of Care ---
Author Name Unknown Organization [facility] Address [address] [facility] [place] [address] Phone [phone] Care Team Providers Care Pocket Assembler Name Role Phone Hatfield Sunny Bernabenoemy Primary Care Provider Reason for Visit * Reason Comments Outpatient Testing Encounter Details Date Type Department Care Team (Late st Contact Info) Description 03/16/2024 11:00 AM EDT Laboratory Laboratory, [facility] 132 [facility] [place] [phone] [employer] 132 [place] [address] HTN, goal below 130/80; ASCVD (arteriosclerotic cardiovascular disease) Allergies Active Allergy Reactions Criticality Noted Date Comments Ciprofloxacin Nausea/vomiting 06/30/2012 Iodinated Contrast Media 01/31/2020 IVP DYE kidney issues documented as of this encounter (statuses as of 03/16/2024) Medications Medication Sig Dispensed Refills Start Date [...] 180 Tablet 3 03/07/2024 Active Isosorbide Dinitrate 5 MG Oral Tablet (Isordil) Take 1 Tablet by mouth 2 times a day. 180 Tablet 3 03/08/2024 Active documented as of this encounter (statuses as of 03/16/2024) Active Problems Problem Noted Date Diagnosed Date [...] as of this encounter (statuses as of 03/16/2024) Resolved Problems Problem Noted Date Diagnosed Date Resolved Date Chronic renal impairment, stage 3b 08/05/2023 09/02/2023 Chronic renal insufficiency, stage III (moderate) 07/07/2019 09/02/2023 Overview: Per CKD protocol documented as of this encounter (statuses as of 03/16/2024) Immunizations Name Administration Dates Next Due COVID-19 [...] 03/27/2024 3:00 PM EDT Office Visit Cardiology, [facility] [address] [place] [address] Yassine Mock PA-C [address] [place] [address] 07/20/2024 1:15 PM EST Office Visit Hematology/Oncology [place] [place] [address] [facility] [place], [place] [address] Jorgito Moncada MD [address] [facility] [place] [address] 08/08/2024 1:00 PM EST Office Visit Family [facility] [address] [place] [address] Sunny Hatfield, [address] [place] [address] Pending Results Name Type Priority Associated Diagnoses Date /Time BASIC METABOLIC PANEL Lab Routine HTN, goal below 130/80 ASCVD (arteriosclerotic cardiovascular disease) 03/16/2024 11:00 AM EDT Health Maintenance Due Date Last [...] this encounter Medical Devices Implanted Type Area Chemical Preparer Device Identifier Shelf Expiration Date Model / Serial / Lot Stent Viabahn [id number] 135cm - [id number] Implanted:06/19 by Francisca Pride MD at OR [place] (Quantity not on file) [employer] [id number] 12/06/2021 [id number] / [id number] / [id number] Graft Stent Viab 7mmx7.5cm - [id number] Implanted:06/19 by Francisca Pride MD at OR [place] (Quantity not on file) [employer] [id number] 01/26/2022 [id number] / [id number] / [id number] documented as of this encounter Visit Diagnoses Diagnosis HTN, goal below 130/80 Unspecified essential hypertension ASCVD (arteriosclerotic cardiovascular disease) Unspecified cardiovascular disease documented in this encounter Advance Directives Documents on File Type Date Recorded Patient Display Fabricator Expl anation Advance Directives and Living Will 03/27/2014 LIVING WILL Power of Aoc Plans Intelligence Officer Chief 03/27/2014 POWER OF A TTORNEY DURABLE HEALTH CARE POA * Full Code (Latest Code Status on File) Date Activated Date Inactivated Comments 07/07/2019 11:09 AM 07/08/2019 2:52 PM This orde r reflects the patients wishes and were consensually agreed upon. Care Teams Pocket Assembler Relationship Specialty Start Date End Date Sunny Hatfield DO [address] [place] [address] PCP - General Family Medicine 08/05/23 documented as of this encounter
--- OUTSIDE RECORDS SUMMARY | 2024-07-09 10:25 | External Medical Summary | Summary of Care ---
Author Name Unknown Organization [facility] Address [address] [facility] [place] [address] Phone [phone] Care Team Providers Care Fermenter Champagne Name Role Phone Sunny Hatfield Sharon Primary Care Provider Encounter Details Date Type Department Care Team (Late st Contact Info) Description 05/29/2024 Abstract Family Practice [facility] [address] [facility] [place] [address] Margaret Brooks LPN Allergies Active Allergy Reactions Criticality Noted Date Comments Ciprofloxacin Nausea/vomiting 06/30/2012 Iodinated Contrast Media 01/31/2020 IVP DYE kidney issues documented as of this encounter (statuses as of 05/29/2024) Medications nitroglycerin (NITROSTAT) 0.4 MG SUBL 2 7 Active Fluticasone-Oswaldo meterol 250-50 MCG/DOSE Inhalation Aerosol Powder Breath Activated 2 times a day. Activ e aspirin enteric coated 81 MG TBEC Take by mouth 2 times a day. Active acetaminophen (TYLENOL) 500 MG Tablet Take by mouth as needed. Active Albuterol Sulfate HFA 108 (90 Base) MCG/ACT Inhalation Aerosol Solution daily as needed. 8 Active Simethicone 80 MG Oral Tablet Chewable Take 1 Tablet by mouth every 6 hours as needed for Gas. Active Tamsulosin HCl 0.4 MG Oral Capsule (Flomax)Indicat ions:Urinary retention Take 1 Capsule by mouth in [...] early evening 270 Tablet 3 4 Active hydrALAZINE HCl 10 MG Oral Tablet (Apresoline) Take 1 Tablet by mouth in the morning and 1 Tablet at noon and 1 Tablet before bedtime. 270 Tablet 3 4 Active Pantoprazole Sodium 40 MG Oral Tablet Delayed Release (Protonix) Take 1 Tablet by mouth in the morning. 90 Tablet 1 4 Active documented as of this encounter (statuses as of 05/29/2024) Active Problems Problem Noted Date Diagnosed Date [...] as of this encounter (statuses as of 05/29/2024) Resolved Problems Problem Noted Date Diagnosed Date Resolved Date Chronic renal impairment, stage 3b 08/05/2023 09/02/2023 Chronic renal insufficiency, stage III (moderate) 07/07/2019 09/02/2023 Overview: Per CKD protocol documented as of this encounter (statuses as of 05/29/2024) Immunizations Name Administration Dates Next Due COVID-19 [...] documented as of this encounter Functional Status * Are you [...] Sher Dhaliwal RN documented in this encounter Plan of Treatment Upcoming Encounters Date Type Department Care Team (Late st Contact Info) Description 07/20/2024 1:15 PM EST Office Visit Hematology/Oncology [facility] [address] [facility] [place] [phone] Jorgito Moncada MD [address] [facility] [place] [address] 07/27/2024 3:00 PM EST Office Visit Cardiology, [facility] [address] [place] [address] Yassine Mock PA-C [address] [place] [address] 08/08/2024 1:00 PM EST Office Visit Family Practice [facility] [address] [place] [address] Sunny Hatfield DO [address] [place] [address] Health Maintenance Due Date Last Done Comments [...] this encounter Medical Devices Implanted Type Area Quantitative Developer Device Identifier Shelf Expiration Date Model / Serial / Lot Stent Viabahn [id number] 135cm - [id number] Implanted:06/19 by Francisca Pride MD at OR [facility] (Quantity not on file) [employer] [id number] 12/06/2021 [id number] / [id number] / [id number] Graft Stent Viab 7mmx7.5cm - [id number] Implanted:06/19 by Francisca Pride MD at OR [facility] (Quantity not on file) [employer] [id number] 01/26/2022 [id number] / [id number] / [id number] documented as of this encounter Advance Directives Documents on File Type Date Recorded Patient Pharmacist Manager Expl anation Advance Directives and Living Will 03/27/2014 LIVING WILL Power of Gravedigger 03/27/2014 POWER OF A TTORNEY DURABLE HEALTH CARE POA * Full Code (Latest Code Status on File) Date Activated Date Inactivated Comments 07/07/2019 11:09 AM 07/08/2019 2:52 PM This orde r reflects the patients wishes and were consensually agreed upon. Care Teams Fermenter Champagne Relationship Specialty Start Date End Date Sunny Hatfield DO [address] [place] [address] PCP - General Family Medicine 08/05/23 documented as of this encounter
--- OUTSIDE RECORDS SUMMARY | 2024-07-09 10:26 | External Medical Summary | Summary of Care ---
Author Name Unknown Organization [facility] Address [address] [facility] [place] [address] Phone [phone] Care Team Providers Care Pilot Instructor Name Role Phone Shantell Hatfieldr Sharon Primary Care Provider Reason for Visit * Reason Comments Outpatient Testing Encounter Details Date Type Department Care Team (Late st Contact Info) Description 02/21/2024 10:10 AM EDT Laboratory Laboratory, [facility] 132 [facility] [place] [phone] [facility] 132 [facility] [place] [address] Chronic renal impairment, stage 3b (HCC) Allergies Active Allergy Reactions Criticality Noted Date Comments Ciprofloxacin Nausea/vomiting 06/30/2012 Iodinated Contrast Media 01/31/2020 IVP DYE kidney issues documented as of this encounter (statuses as of 02/21/2024) Medications Medication Sig Dispensed Refills Start Date [...] as of this encounter (statuses as of 02/21/2024) Active Problems Problem Noted Date Diagnosed Date [...] as of this encounter (statuses as of 02/21/2024) Resolved Problems Problem Noted Date Diagnosed Date Resolved Date Chronic renal impairment, stage 3b 08/05/2023 09/02/2023 Chronic renal insufficiency, stage III (moderate) 07/07/2019 09/02/2023 Overview: Per CKD protocol documented as of this encounter (statuses as of 02/21/2024) Immunizations Name Administration Dates Next Due COVID-19 [...] 03/27/2024 3:00 PM EDT Office Visit Cardiology, [facility] [address] [place] [address] Yassine Mock PA-C [address] [place] [address] 07/20/2024 1:15 PM EST Office Visit Hematology/Oncology [facility] [place] [address] [place] [phone] Jorgito Moncada MD [address] [place] [address] 08/08/2024 1:00 PM EST Office Visit Family Practice [facility] [address] [place] [address] Sunny Hatfield DO [address] [place] [address] Pending Results Name Type Priority Associated Diagnoses Date /Time COMPREHENSIVE METABOLIC PANEL Lab Routine Chronic renal impairment, stage 3b (HCC) 02/21/2024 10:00 AM EDT Health Maintenance Due Date Last Done Comments Depression Screening 1947 Alpha-1 Antitrypsin 02/19/1953 DTaP,Tdap,and Td Vaccines (1 - Tdap) 02/19/1954 Pneumococcal Vaccine: 65+ Years (3 of 3 [...] this encounter Medical Devices Implanted Type Area Director Of Safety And Security Device Identifier Shelf Expiration Date Model / Serial / Lot Stent Viabahn [id number] 135cm - [id number] Implanted:06/19 by Francisca Pride MD at [place] [facility] [place] not on file) [employer] [id number] 12/06/2021 [id number] / [id number] / [id number] Graft Stent Viab 7mmx7.5cm - [id number] Implanted:06/19 by Francisca Pride MD at [place] [facility] [place] (Quantity not on file) [employer] [id number] 01/26/2022 [id number] / [id number] / [id number] documented as of this encounter Visit Diagnoses Diagnosis Chronic renal impairment, stage 3b (HCC) documented in this encounter Advance Directives Documents on File Type Date Recorded Patient Credit Director Expl anation Advance Directives and Living Will 03/27/2014 LIVING WILL Power of Caul Fat Puller 03/27/2014 POWER OF A TTORNEY DURABLE HEALTH CARE POA * Full Code (Latest Code Status on File) Date Activated Date Inactivated Comments 07/07/2019 11:09 AM 07/08/2019 2:52 PM This orde r reflects the patients wishes and were consensually agreed upon. Care Teams Pilot Instructor Relationship Specialty Start Date End Date Sunny Hatfield DO [address] [place] [address] PCP - General Family Medicine 08/05/23 documented as of this encounter
--- OUTSIDE RECORDS SUMMARY | 2024-07-09 10:26 | External Medical Summary | Summary of Care ---
Author Name Unknown Organization [facility] Address [address] [facility] [place] [address] Phone [phone] Care Team Providers Care Lpn Or Medical Assistant Name Role Phone Sunny Hatfieldnoemy Primary Care Provider Encounter Details Date Type Department Care Team (Late st Contact Info) Description 02/07/2024 Orders Only PATIENT PORTAL DO NOT DELETE THIS DEPT USED BY [place] [id number] Allergies Active Allergy Reactions Criticality Noted Date Comments Ciprofloxacin Nausea/vomiting 06/30/2012 Iodinated Contrast Media 01/31/2020 IVP DYE kidney issues documented as of this encounter (statuses as of 02/07/2024) Medications Medication Sig Dispensed Refills Start Date [...] as of this encounter (statuses as of 02/07/2024) Active Problems Problem Noted Date Diagnosed Date [...] as of this encounter (statuses as of 02/07/2024) Resolved Problems Problem Noted Date Diagnosed Date Resolved Date Chronic renal impairment, stage 3b 08/05/2023 09/02/2023 Chronic renal insufficiency, stage III (moderate) 07/07/2019 09/02/2023 Overview: Per CKD protocol documented as of this encounter (statuses as of 02/07/2024) Immunizations Name Administration Dates Next Due COVID-19 [...] 03/27/2024 3:00 PM EDT Office Visit Cardiology, [facility] [address] [place] [address] Yassine Mock PA-C [address] [place] [address] 07/20/2024 1:15 PM EST Office Visit Hematology/Oncology [facility] [place] [address] [place] [phone] Jorgito Moncada MD [address] [place] [address] 08/08/2024 1:00 PM EST Office Visit Family Practice [facility] [address] [place] [address] Sunny Hatfield DO [address] [place] [address] Health Maintenance Due Date Last Done Comments Depression Screening 1947 Alpha-1 Antitrypsin 02/19/1954 DTaP,Tdap,and Td Vaccines (1 - Tdap) 02/19/1955 Pneumococcal Vaccine: 65+ Years (3 of 3 - PCV) 11/03/2019 11/02/2018, 04/01/2017 COVID-19 Vaccine (3 - Moderna risk series) 10/22/2020 09/24/2020, 08/20/2020 *COPD SEVERITY VERIFIED BY PFT 08/07/2023 *NEPHROLOGY REFERRAL DUE TO RESISTANT HTN 01/20/2024 *CXR OR CT FOR COPD EVER 01/30/2024 Influenza Vaccine (FLU shot) (#1) 2024 04/30/2023, [...] this encounter Medical Devices Implanted Type Area Cutter Grind Tool Technician Device Identifier Shelf Expiration Date Model / Serial / Lot Stent Viabahn [id number] 135cm - [id number] Implanted:06/19 by Francisca Pride MD at OR [facility] (Quantity not on file) [employer] [id number] 12/06/2021 [id number] / [id number] / [id number] Graft Stent Viab 7mmx7.5cm - [id number] Implanted:06/19 by Francisca Pride MD at OR [facility] (Quantity not on file) [employer] [id number] 01/26/2022 [id number] / [id number] / [id number] documented as of this encounter Advance Directives Documents on File Type Date Recorded Patient Quality Assurance Expl anation Advance Directives and Living Will 03/27/2014 LIVING WILL Power of Grinding Room Inspector 03/27/2014 POWER OF A TTORNEY DURABLE HEALTH CARE POA * Full Code (Latest Code Status on File) Date Activated Date Inactivated Comments 07/07/2019 11:09 AM 07/08/2019 2:52 PM This orde r reflects the patients wishes and were consensually agreed upon. Care Teams Lpn Or Medical Assistant Relationship Specialty Start Date End Date Sunny Hatfield DO [address] [place] [address] PCP - General Family Medicine 08/05/23 documented as of this encounter
--- OUTSIDE RECORDS SUMMARY | 2024-07-09 10:26 | External Medical Summary | Summary of Care ---
Author Name Unknown Organization [facility] Address [address] [facility] [place] [address] Phone [phone] Care Team Providers Care Car Attendant Name Role Phone Sunny Hatfield Primary Care Provider Reason for Referral * Evaluate & Treat - Unlimited Visits (Within 10 days (routine)) - Authorized Specialty Diagnoses / Procedures Referred By Von lopez Referred To Contact Otolaryngology Diagnoses History of lymphoma Weight loss, unintentional Hoarseness of voice Jorgito Moncada MD [address] [facility] [place] [address] Referral ID Status Reason Start Date Expiration Date Visits Requested Visits Authorized [id number] Authorized Specialty Services Required 01/18/2024 999 999 Question Answer Referral Priority Within 10 days (routine) Where should this appointment be scheduled? 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 Dr. Jorgito Moncada Hem/Onc Reason for Visit * Reason Comments Follow Up Encounter Details Date Type Department Care Team (Late st Contact Info) Description 01/18/2024 8:45 AM EDT Office Visit Hematology/Oncology [facility] [address] [place] [phone] Jorgito Moncada MD [address] [facility] [place] [address] History of lymphoma*; Weight loss, unintentional; Hoarseness of voice Allergies Active Allergy Reactions Criticality Noted Date Comments Ciprofloxacin Nausea/vomiting 06/30/2012 Iodinated Contrast Media 01/31/2020 IVP DYE kidney issues documented as of this encounter (statuses as of 01/18/2024) Medications Medication Sig Dispensed Refills Start Date [...] by mouth in the morning. 90 Tablet 08/05/2023 Active Finasteride 5 MG Oral Tablet [...] as of this encounter (statuses as of 01/18/2024) Active Problems Problem Noted Date Diagnosed Date [...] as of this encounter (statuses as of 01/18/2024) Resolved Problems Problem Noted Date Diagnosed Date Resolved Date Chronic renal impairment, stage 3b 08/05/2023 09/02/2023 Chronic renal insufficiency, stage III (moderate) 07/07/2019 09/02/2023 Overview: Per CKD protocol documented as of this encounter (statuses as of 01/18/2024) Immunizations Name Administration Dates Next Due COVID-19 [...] Sign Reading Time Taken Comments Blood Pressure 196/97 01/18/2024 8:47 AM EDT Pulse 64 01/18/2024 8:47 AM EDT Temperature 36.6 C (97.9 F) 01/18/2024 8:47 AM ED T Respiratory Rate 16 01/18/2024 8:47 AM EDT Oxygen Saturation 93% 01/18/2024 8:47 AM EDT Inhaled Oxygen Concentration - - Weight 66.2 kg (146 lb) 01/18/2024 8:47 AM EDT Height - - Body Mass Index 23.14 04/21/2023 1:18 PM EDT documented in this encounter Functional Status [...] as of this encounter Progress Notes * Jorgito Moncada MD - 01/18/2024 8:45 AM EDT 88-year-old male Diagnosis: - 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 No bone marrow involvement. CRI H/o of left-sided kidney cancer, S/P cryo ablation in 2010 at [facility]. Current treatment: Observation since May 2017. Previous treatment: -Bendamustine and Rituxan started on 04/05/2017. He received 4 cycles of chemotherapy, last cycle ofchemotherapy received on 06/09/2017. Interval history: He has come the clinic for the follow-up, accompanied by his in the office He says that for the last few months he is not feeling well, does not have a good appetite, lost about 10 lb, current weight around 146 lb, has some mild cough, previous history of smoking noted, no nausea no vomiting, no diarrhea, no bleeding from any sites, no pain, has hoarseness of voice often on for the last few months. Has underlying GERD, he is already on Protonix. Diagnostic workup: He says that about 4 weeks back he started having some lump in the throat, some hoarseness of voice, some trouble breathing at that time, he was then seen at [facility] where he was admitted, had CT scan of the neck, found to have right tonsillar soft tissue mass, subsequently he was seen by ENT specialist at [facility]. Underwent laryngoscopic fiberoptic examination on 03/17/2017, right tonsillar mass protruding posteriorly into the hypopharynx noted, measuring about 4 x 5 cm, no ulceration or bleeding noted. No other suspicious findings noted anywhere else. -Biopsy from the right tonsillar soft tissue mass--> mantle cell lymphoma (03/17/2017). -PET-CT scan done 03/17/2017 at [facility] showed 3.9 x 2.7 cm FDG avid right tonsillar mass, mildly enlarged the right level 2 cervical lymph node. No other enlarged lymph nodes noted in the neck, chest or abdomen. No hepatomegaly or splenomegaly noted. -Bone marrow examination done on 03/31/2017--> no lymphoma involvement, male karyotype, loss of Ychromosome noted. -Upper GI endoscopy and colonoscopy done on 04/02/2017 showed no new suspicious findings. No evidence of lymphoma involvement noted Former smoker with ~30 pack year history, denies EtOH abuse. Other medical problems: - CAD, S/P coronary stent placement 1 the last was done in 10/2016. He is on nitroglycerin and Plavix. He follows with a city library director Dr. Mancilla, he was also seen at [facility] for underlying coronary disease. No active coronary artery symptom at this time. - History of left-sided kidney cancer, S/P cryo ablation in 2010 at [facility]. 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 - Chronic renal insufficiency with serum creatinine level around 1.7 mg/dL Past Medical History: Diagnosis Date Dyslipidemia Hx-TIA (transient ischemic attack) Hypertension Past Surgical History: Procedure Laterality Date AORTOGRAM ABDOMINAL-TECH ONLY N/A 07/07/2019 IMAGING SUPERVISION & INTERPRETATION ABDOMINAL AO performed by Francisca Pride MD at OR [facility] CARDIAC CATH SCANNED RESULT 09/28/2003 2 Cypher drug eluding cardiac stents COLONOSCOPY, DIAGNOSTIC (RECTUM) 04/02/2017 inflammation on bx, diverticulosis/COLONOSCOPY FLEXIBLE PROXIMAL DIAGNOSTIC performed by Marika Olivarez DO at ENDOSCOPY [facility] EGD, FLEXIBLE, DIAGNOSTIC 07/01/2012 UPPER GI ENDOSCOPY DIAGNOSTIC performed by Marika Olivarez DO at ENDOSCOPY [facility] EGD, FLEXIBLE, DIAGNOSTIC 08/24/2013 ESOPHAGOGASTRODUODENOSCOPY (EGD), FLEXIBLE, TRANSORAL, DIAGNOSTIC performed by Marika Olivarez DO at ENDOSCOPY [facility] EGD, FLEXIBLE, DIAGNOSTIC 12/21/2014 mild gastritis, HH/ESOPHAGOGASTRODUODENOSCOPY (EGD), FLEXIBLE, TRANSORAL, DIAGNOSTIC performed by Marika Olivarez DO at ENDOSCOPY [facility] EGD, FLEXIBLE, DIAGNOSTIC 06/25/2016 HH, normal/ESOPHAGOGASTRODUODENOSCOPY (EGD), FLEXIBLE, TRANSORAL, DIAGNOSTIC performed by Marika Olivarez DO at ENDOSCOPY [facility] EGD, FLEXIBLE, DIAGNOSTIC 04/02/2017 inflammation/ESOPHAGOGASTRODUODENOSCOPY (EGD), FLEXIBLE, TRANSORAL, DIAGNOSTIC performed by Marika Ellis DO at ENDOSCOPY [facility] EGD, FLEXIBLE, DIAGNOSTIC 09/19/2020 Abnormal esophageal motility, hiatal hernia / [facility] FEM/POP ARTERY REVASC W/ STENT+ANGIOPLASTY Left 07/07/2019 FEM/POP ARTERY REVASC W/ STENT+ANGIOPLASTY performed by Francisca Pride MD at OR [facility] INFORMATION Left 07/30/2010 cryoablation left kidney IR ARTERIOGRAM EXTREMITY UNILATERAL Left 07/07/2019 IMAGING SUPERVISION & INTERPRETATION EXTREMITY UNILATERAL performed by Francisca Pride MD at OR [facility] LUMBAR / SACRAL EPIDURAL, SINGLE LEVEL 10/27/2013 INJECTION TRANSFORAMINAL EPIDURAL LUMBAR OR SACRAL performed by Margarito Lyon DO at OR [facility] REMOVE CATARACT, INSERT LENS PROSTH OU-Dr. Juan SACROILIAC JOINT INJECT W/GUIDANCE 05/08/2019 INJECTION SACROILIAC JOINT performed by Margarito Lyon DO at OR [facility] SACROILIAC JOINT INJECT W/GUIDANCE 06/01/2019 INJECTION SACROILIAC JOINT performed by Margarito Lyon DO at OR [facility] SACROILIAC JOINT INJECT W/GUIDANCE 04/04/2020 INJECTION SACROILIAC JOINT performed by Margarito Lyon DO at OR [facility] SACROILIAC JOINT INJECT W/GUIDANCE 05/13/2020 INJECTION SACROILIAC JOINT performed by Margarito Lyon DO at OR [facility] SACROILIAC JOINT INJECT W/GUIDANCE 02/06/2021 INJECTION SACROILIAC JOINT performed by Margarito Lyon DO at OR [facility] SACROILIAC JOINT INJECT W/GUIDANCE 04/15/2022 INJECTION SACROILIAC JOINT performed by Margarito Lyon DO at OR [facility] Current Outpatient Medications Medication Sig Dispense Refill [...] No current facility-administered medications for this visit. On exam: Constitutional: Patient is alert, cooperative and oriented x 3. Well built man, Patient is in no acute distress. HEENT:No icterus, no pallor, Throat and pharynx normal. Sinuses are non-tender. Neck: Supple and without lymphadenopathy or masses. No JVD. No Palpable supraclavicular lymph nodes. Lungs: Clear to auscultation. Bilateral symmetric air entry. No wheezing or rhonchi. Cardiovascular: Normal heart sounds, no murmurs.Regular rate and rhythm. Abdomen: soft, nontender, no hepatomegaly, no splenomegaly. Bowel sounds are normal. Neurological: No gross focal neurological deficit; walks with a normal gait. Extremities: No finger clubbing, No cyanosis. No leg edema. Skin:: No skin rash. SPINE: No spinal or paraspinal tenderness. No palpable lymphadenopathy in the axilla. -PET-CT scan done on 07/07/2017--> significant improvement of activity noted in the right palatine tonsil. No new suspicious findings noted anywhere else. Thickening of the bladder wall noted. PET CT from 12/21/2018:No metabolically active disease. [place] 1. Blood workup done on 07/08/2019: -WBC 70462, H&H of 13.2/40.2, Platelet count of 214,000 -BUN/Creat: 24/1.8, Calcium 9.8. -serum creatinine level --> 2.1 (10/16/2021) ASSESSMENT AND PLAN: 88-year-old male, a case of right tonsillar mantle cell lymphoma PET-CT scan showed 4 cm right tonsillar mass as well as metabolic active right level 2 lymph node on the right side of the neck, no other mantle cell lymphoma noted anywhere else, bone marrow negative for lymphomainvolvement, no B symptoms, received 4 cycles of chemotherapy with bendamustine and Rituxan between04/05/2017-06/09/2017. Responded quite well, had a complete response, last PET-CT scan done in December 2018 showed no evidence of recurrent disease noted. Overall he has done well but lately he has poor appetite, weight loss by about 10 lb noted, has some hoarseness of voice, no trouble swallowing, has underlying GERD, he is already on PPI therapy, no nausea, no vomiting, no bleeding from the sites. I would like to CBCD, comprehensive metabolic panel, LDH level today. Previous history of smoking noted. Previous history of kidney cancer noted. Will decide about further workup after reviewing the blood workup findings. Will also consider ENT evaluation after that. Planning to see him in about [address] Jorgito Moncada Hem/Onc (This note was completed using the dictation program Fluency Direct. As such, there may be misspellings word substitutions, or other variations that should not change the essence of the clinical content of this encounter note. If there is need for further clarification, please direct questions to the provider listed above.) Blood workup done on 01/18/2024: -BUN/Creat: 50/2.3, normal LFT, Calcium 9.9 -WBC 6400, Hemoglobin and hematocrit -13.4/40.6, Platelet count of 979024. -LDH --> pending Overall blood workup is unremarkable. With a previous history of mantle cell lymphoma involving the tonsil, current weight loss, hoarseness of voice, I would like to proceed with a ENT evaluation. Dr. Jorgito Moncada Hem/Onc documented in this encounter Nursing Notes * Shweta Rodríguez, MED ASSIST - 01/18/2024 8:49 AM EDT Patient identifed by name and birthdate Do you have any concerns about pain management for today's visit? Yes. Patient instructed to discuss pain concerns with provider during the visit today Living Will or Advance Directive for Health Care as noted on the problem list. [facility] is a way you can talk to your provider on line through e-mail. Would you like to sign up? I can activate it for you? ALREADY ACTIVE Filed Vitals: 01/18/24 0847 BP: 196/97 Pulse: 64 Resp: 16 Temp: 36.6 C (97.9 F) TempSrc: Tympanic SpO2: 93% Weight: 66.2 kg (146 lb) Patient was instructed to not get up on the exam table/exam chair until directed and assisted by their provider; patient is to remain seated in the chair/ wheelchair/ exam table/ exam chair for fall prevention and safety reasons. Patient is aware to have assistance to step down off exam table/exam chair with personnel. Patient voiced full comprehension of instructions. documented in this encounter Plan of Treatment Upcoming Encounters Date Type Department Care Team (Late st Contact Info) Description 02/03/2024 10:00 AM EDT Office Visit [facility] [address] [place] [address] Yany Gallardo CRNP [address] [place] [address] 07/20/2024 1:15 PM EST Office Visit Hematology/Oncology [facility] [address] [facility] [place] [phone] Jorgito Moncada MD [address] [facility] [place] [address] 08/08/2024 1:00 PM EST Office Visit [facility] [address] [place] [address] Sunny Hatfield DO [address] [place] [address] Pending Results Name Type Priority Associated Diagnoses Date /Time LD Lab Routine History of lymphoma Weight loss, unintentional 01/18/2024 9:09 AM EDT Scheduled Referrals Name Type Priority Associated Diagnoses Order Schedule ADULT/PEDS OTOLARYNGOLOGY REFERRAL OP Referral Within 10 days (routine) History of lymphoma Weight loss, unintentional Hoarseness of voice Ordered: 01/18/2024 Health Maintenance Due Date Last Done Comments Depression Screening 1947 Alpha-1 Antitrypsin 02/19/1954 DTaP,Tdap,and Td Vaccines (1 - Tdap) 02/19/1955 Pneumococcal Vaccine: 65+ Years (3 of 3 - PCV) 11/03/2019 11/02/2018, 04/01/2017 COVID-19 Vaccine (3 - Moderna risk series) 10/22/2020 09/24/2020, 08/20/2020 *COPD SEVERITY VERIFIED BY PFT 08/07/2023 Influenza Vaccine (FLU shot) (#1) 2024 04/30/2023, 04/24/2022, 04/23/2021, Additional history exists Albumin/Creatinine Ratio 08/05/2024 08/05/2023 O2 ASSESSMENT COMPLETED IN PAST YEAR FOR COPD 01/17/2025 01/18/2024 Zoster Vaccines Completed 08/08/2020, 05/19, 06/18/2013 HPV [...] this encounter Medical Devices Implanted Type Area Sandblast Operator Device Identifier Shelf Expiration Date Model / Serial / Lot Stent Viabahn [id number] 135cm - [id number] Implanted:06/19 by Francisca Pride MD at OR [facility] (Quantity not on file) [employer] [id number] 12/06/2021 [id number] / [id number] / [id number] Graft Stent Viab 7mmx7.5cm - [id number] Implanted:06/19 by Francisca Pride MD at OR [facility] (Quantity not on file) [employer] [id number] 01/26/2022 [id number] / [id number] / [id number] documented as of this encounter Procedures Procedure Name Priority Date/Time Associated Diagnosis Comments DIFFERENTIAL, AUTOMATED STAT 01/18/2024 9:09 AM EDT History of lymphoma Weight loss, unintentional COMPREHENSIVE METABOLIC PANEL STAT 01/18/2024 9:09 AM EDT History of lymphoma Weight loss, unintentional CBC STAT 01/18/2024 9:09 AM EDT History of lymphoma Weight loss, unintentional CBC STAT 01/18/2024 9:09 AM EDT History of lymphoma Weight loss, unintentional documented in this encounter Results * (ABNORMAL) DIFFERENTIAL, AUTOMATED (01/18/2024 9:09 AM EDT) WBC 6.49 4.00 - 10.80 K/uL 01/18/2024 9:31 AM EDT [facility]02 Neutrophils % 60.3 40.0 - 75.0 % 01/18/2024 9:31 AM EDT [facility] 56-02 Lymphocytes % 21.4 18.0 - 42.0 % 01/18/2024 9:31 AM EDT [facility] 56-02 Monocytes % 12.0(H) 1.0 - 11.0 % 01/18/2024 9:31 AM EDT [facility] 56-02 Eosinophils % 6.0 0.0 - 6.0 % 01/18/2024 9:31 AM EDT [facility] 56-02 Basophils % 0.3 0.0 - 2.0 % 01/18/2024 9:31 AM EDT [facility] 56-02 Absolute Neutrophils 3.91 1.80 - 7.70 K/uL 01/18/2024 9:31 AM EDT [facility] 56-02 Absolute Lymphocytes 1.39 1.00 - 4.80 K/ul 01/18/2024 9:31 AM EDT [facility] 56-02 Absolute Monocytes 0.78 0.00 - 1.10 K/uL 01/18/2024 9:31 AM EDT [facility] 56-02 Absolute Eosinophils 0.39 0.00 - 0.70 K/uL 01/18/2024 9:31 AM EDT [facility] 56-02 Absolute Basophils 0.02 0.00 - 0.20 K/uL 01/18/2024 9:31 AM EDT [facility] 56-02 Blood Venous blood specimen / Unknown Venipuncture / Unknown 01/18/2024 9:09 AM EDT 01/18/2024 9:09 AM EDT Jorgito Moncada MD LAB BLOOD ORDERABLES [facility] [address] [place] [address] * (ABNORMAL) CBC (01/18/2024 9:09 AM EDT) WBC 6.49 4.00 - 10.80 K/uL 01/18/2024 9:31 AM EDT [facility] RBC 4.39 4.50 - 5.25 M/uL 01/18/2024 9:31 AM EDT [address] HGB 13.4(L) 14.0 - 16.8 g/dL 01/18/2024 9:[address] HCT 40.6 40.0 - 48.4 % 01/18/2024 9:31 AM EDT [address] MCV 92.5 82.0 - 99.5 fL 01/18/2024 9:31 AM EDT [address] MCH 30.5 27.0 - 34.0 pg 01/18/2024 9:31 AM EDT [facility] 56 MCHC 33.0 32.0 - 36.0 g/dL 01/18/2024 9:31 AM EDT [facility] 56 RDW 13.3 11.5 - 15.5 % 01/18/2024 9:31 AM EDT [facility] 56 PLT 210 140 - 400 K/uL 01/18/2024 9:31 AM EDT [facility] 56 MPV 9.9 6.6 - 11.1 fL 01/18/2024 9:31 AM EDT [facility] 56 Blood Venous blood specimen / Unknown Venipuncture / Unknown 01/18/2024 9:09 AM EDT 01/18/2024 9:09 AM EDT Jorgito Moncada MD LAB BLOOD ORDERABLES [facility] [address] [place] [address] * (ABNORMAL) COMPREHENSIVE METABOLIC PANEL (01/18/2024 9:09 AM EDT) BUN 50(H) 6 - 20 mg/dL 01/18/2024 10:36 AM [facility] Creatinine 2.3(H) 0.6 - 1.2 mg/dL 01/18/2024 10:[address] Estimated Glomerular Filtration Rate 27(L) >=60 mL/min 01/18/2024 10:[address] Comment:eGFR is calculated b ased on the CKD-EPI 2020 equation Sodium 140 135 - 146 mmol/L 01/18/2024 10:[address] Potassium 5.1 3.5 - 5.1 mmol/L 01/18/2024 10:36 AM [place] [address] Chloride 106 98 - 107 mmol/L 01/18/2024 10:[address] CO2 23 22 - 32 mmol/L 01/18/2024 10:[address] Anion Gap 11 7 - 15 mmol/L 01/18/2024 10:36 AM [place] [address] Glucose 102 70 - 120 mg/dL 01/18/2024 10:36 AM [place] [address] Albumin 4.2 3.8 - 5.0 g/dL 01/18/2024 10:36 AM [place] [address] AST 9(L) 10 - 50 U/L 01/18/2024 10:[address] Alkaline Phosphatase 66 35 - 130 U/L 01/18/2024 10:[address] Bilirubin, Total 0.3 <=1.2 mg/dL 01/18/2024 10:36 AM [place] [address] Calcium 9.9 8.4 - 10.2 mg/dL 01/18/2024 10:36 AM [place] [address] Protein 6.9 6.0 - 8.3 g/dL 01/18/2024 10:[address] ALT <5(L) 10 - 50 U/L 01/18/2024 10:36 AM EDT [facility] Comment:Results rechecked. Blood Venous blood specimen / Unknown Venipuncture / Unknown 01/18/2024 9:09 AM EDT 01/18/2024 9:09 AM EDT Jorgito Moncada MD LAB BLOOD ORDERABLES [facility] [address] [place] [address] documented in this encounter Visit Diagnoses Diagnosis History of lymphoma- Primary Personal history of other lymphatic and hematopoietic neoplasm Weight loss, unintentional Loss of weight Hoarseness of voice Dysphonia documented in this encounter Advance Directives Documents on File Type Date Recorded Patient Stained Glass Installer Expl anation Advance Directives and Living Will 03/27/2014 LIVING WILL Power of Splicing Machine Operator 03/27/2014 POWER OF A TTORNEY DURABLE HEALTH CARE POA * Full Code (Latest Code Status on File) Date Activated Date Inactivated Comments 07/07/2019 11:09 AM 07/08/2019 2:52 PM This orde r reflects the patients wishes and were consensually agreed upon. Care Teams Car Attendant Relationship Specialty Start Date End Date Sunny Hatfield DO [address] [place] [address] PCP - General Family Medicine 08/05/23 documented as of this encounter
--- OUTSIDE RECORDS SUMMARY | 2024-07-09 10:26 | External Medical Summary | Summary of Care ---
Author Name Unknown Organization [facility] Address [address] [facility] [place] [address] Phone [phone] Care Team Providers Care Mica Plate Layer Name Role Phone Sunny Hatfield Primary Care Provider Reason for Visit * Reason Onset Date Comments Test Results Lab 01/19/2024 Encounter Details Date Type Department Care Team (Late st Contact Info) Description 01/19/2024 Telephone Hematology/Oncology [facility] [address] [place] [phone] Jorgito Moncada MD [address] [place] [address] Test Results Lab Allergies Active Allergy Reactions Criticality Noted Date Comments Ciprofloxacin Nausea/vomiting 06/30/2012 Iodinated Contrast Media 01/31/2020 IVP DYE kidney issues documented as of this encounter (statuses as of 01/19/2024) Medications Medication Sig Dispensed Refills Start Date [...] as of this encounter (statuses as of 01/19/2024) Active Problems Problem Noted Date Diagnosed Date [...] II(A - Asymptomatic) - Signed by Jorgito Monacda MD on 04/26/2017 documented as of this encounter (statuses as of 01/19/2024) Resolved Problems Problem Noted Date Diagnosed Date Resolved Date Chronic renal impairment, stage 3b 08/05/2023 09/02/2023 Chronic renal insufficiency, stage III (moderate) 07/07/2019 09/02/2023 Overview: Per CKD protocol documented as of this encounter (statuses as of 01/19/2024) Immunizations Name Administration Dates Next Due COVID-19 [...] encounter Miscellaneous Notes * Telephone Encounter - Katie Hoffman OSA - 01/19/2024 12:20 PM EDT Patient returned call asking for call back. * Telephone Encounter - Rivera Jain RN - 01/19/2024 10:16 AM EDT Called patient, no answer, LMOM with return #. * Telephone Encounter - Rivera Jain RN - 01/19/2024 10:15 AM EDT ----- Message from Jorgito Moncada MD sent at 01/19/2024 6:20 AM EDT ----- Blood workup done on 01/18/2024: - Overall normal blood counts, stable hemoglobin level, normal platelet count. - Kidney function test has remained abnormal, serum creatinine level is around 2.3 mg/dL - Normal LFT - Normal LDH level. Overall stable blood test result noted. Would like to have ENT evaluation. 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 documented in this encounter Plan of Treatment Upcoming Encounters Date Type Department Care Team (Late st Contact Info) Description 02/03/2024 10:00 AM EDT Office Visit [facility] [address] [place] [address] Yany Gallardo CRNP [address] [place] [address] 07/20/2024 1:15 PM EST Office Visit [facility]ology[facility] [address] [facility] [place] [phone] Jorgito Moncada MD [address] [facility] [place] [address] 08/08/2024 1:00 PM EST Office Visit [facility] [address] [place] [address] Sunny Hatfield DO [address] [place] [address] Health Maintenance Due Date Last Done Comments [...] this encounter Medical Devices Implanted Type Area Bilingual Recruiter Device Identifier Shelf Expiration Date Model / Serial / Lot Stent Viabahn [id number] 135cm - [id number] Implanted:06/19 by Francisca Pride [place] [facility] [place] [employer] [id number] 12/06/2021 [id number] / [id number] / [id number] Graft Stent Viab 7mmx7.5cm - [id number] Implanted:06/19 by Francisca Pride MD [place] [facility] [place] [employer] [id number] 01/26/2022 [id number] / [id number] / [id number] documented as of this encounter Advance Directives Documents on File Type Date Recorded Patient Senior Cognos Developer Expl anation Advance Directives and Living Will 03/27/2014 LIVING WILL Power of Damage Assessor 03/27/2014 POWER OF A TTORNEY DURABLE HEALTH CARE POA * Full Code (Latest Code Status on File) Date Activated Date Inactivated Comments 07/07/2019 11:09 AM 07/08/2019 2:52 PM This orde r reflects the patients wishes and were consensually agreed upon. Care Teams Mica Plate Layer Relationship Specialty Start Date End Date Sunny Hatfield DO [address] [place] [address] PCP - General Family Medicine 08/05/23 documented as of this encounter
--- OUTSIDE RECORDS SUMMARY | 2024-07-09 10:26 | External Medical Summary ---
Author Name Unknown Address Unknown Organization [facility] [place] [address] Laboratory Report Ordering Provider Test Date Status MAYTE PACHECO 01/18/2024 09:09:47 Final Observation Date Value Abnormality Reference (Units ) Status WBC, Total 01/18/2024 09:09:47 6.49 4.00-10.8 0 (K/uL) Final RBC 01/18/2024 09:09:47 4.39 4.50-5.25 (M/uL) Final Hemoglobin 01/18/2024 09:09:47 13.4 Below low normal 14 .0-16.8 (g/dL) Final HCT 01/18/2024 09:09:47 40.6 40.0-48.4 (%) Final MCV 01/18/2024 09:09:47 92.5 82.0-99.5 (fL) Final MCH 01/18/2024 09:09:47 30.5 27.0-34.0 (pg) Final MCHC 01/18/2024 09:09:47 33.0 32.0-36.0 (g/dL) Final RDW 01/18/2024 09:09:47 13.3 11.5-15.5 (%) Final Platelets 01/18/2024 09:09:47 210 140-400 (K /uL) Final MPV 01/18/2024 09:09:47 9.9 6.6-11.1 ( fL) Final Performing Location [facility] [place] [address]
--- OUTSIDE RECORDS SUMMARY | 2024-07-09 10:26 | External Medical Summary | Summary of Care ---
Author Name Unknown Organization [facility] Address [address] [facility] [place] [address] Phone [phone] Care Team Providers Care Middle Card Tender Name Role Phone Sunny Hatfield Primary Care Provider Reason for Visit * Reason Onset Date Comments Test Results Lab 01/19/2024 Encounter Details Date Type Department Care Team (Late st Contact Info) Description 01/19/2024 Telephone Hematology/Oncology [facility] [address] [place] [phone] Jorgito Moncada MD [address] [place] [address] Test Results Lab Allergies Active Allergy Reactions [...] encounter Miscellaneous Notes * Telephone Encounter - Rivera Jain RN [...] Description 02/03/2024 10:00 AM EDT Office Visit [facility] [address] [place] [address] Yany Gallardo CRNP [address] [place] [address] 07/20/2024 1:15 PM EST Office Visit Hematology/Oncology [facility] [address] [facility] [place] [phone] Jogrito Moncada MD [facility] [address] 08/08/2024 1:00 PM EST Office Visit [facility] [address] [place] [address] Sunny Hatfield DO [address] [place] [address] Health Maintenance Due Date Last Done Comments [...] this encounter Medical Devices Implanted Type Area Business Applications Manager Device Identifier Shelf Expiration Date Model / Serial / Lot Stent Viabahn [id number] 135cm - [id number] Implanted:06/19 by Francisca Pride MD at OR [facility] [place] (Quantity not on file) [employer] [id number] 12/06/2021 [id number] / [id number] / [id number] Graft Stent Viab 7mmx7.5cm - [id number] Implanted:06/19 by Francisca Pride MD at OR [facility] (Quantity not on file) [employer] [id number] 01/26/2022 [id number] / [id number] / [id number] documented as of this encounter Advance Directives Documents on File Type Date Recorded Patient Video Production Engineer Expl anation Advance Directives and Living Will 03/27/2014 LIVING WILL Power of Roof Service Technician 03/27/2014 POWER OF A TTORNEY DURABLE HEALTH CARE POA * Full Code (Latest Code Status on File) Date Activated Date Inactivated Comments 07/07/2019 11:09 AM 07/08/2019 2:52 PM This orde r reflects the patients wishes and were consensually agreed upon. Care Teams Middle Card Tender Relationship Specialty Start Date End Date Sunny Hatfield DO [address] [place] [address] PCP - General Family Medicine 08/05/23 documented as of this encounter
--- OUTSIDE RECORDS SUMMARY | 2024-07-09 10:26 | External Medical Summary | Summary of Care ---
Author Name Unknown Organization [facility] Address [address] [facility] [place] [address] Phone [phone] Care Team Providers Care Assistant Professor Of History Name Role Phone Vidal Hatfieldvor Sharon Primary Care Provider Reason for Visit * Reason Onset Date Comments Appointment 02/03/2024 Encounter Details Date Type Department Care Team (Late st Contact Info) Description 02/03/2024 Telephone Family Practice [facility] [address] [place] [address] Yany Gallardo CRNP [address] [facility] [place] [address] Appointment Allergies Active Allergy Reactions Criticality Noted Date Comments Ciprofloxacin Nausea/vomiting 06/30/2012 Iodinated Contrast Media 01/31/2020 IVP DYE kidney issues documented as of this encounter (statuses as of 02/03/2024) Medications Medication Sig Dispensed Refills Start Date [...] as of this encounter (statuses as of 02/03/2024) Active Problems Problem Noted Date Diagnosed Date [...] as of this encounter (statuses as of 02/03/2024) Resolved Problems Problem Noted Date Diagnosed Date Resolved Date Chronic renal impairment, stage 3b 08/05/2023 09/02/2023 Chronic renal insufficiency, stage III (moderate) 07/07/2019 09/02/2023 Overview: Per CKD protocol documented as of this encounter (statuses as of 02/03/2024) Immunizations Name Administration Dates Next Due COVID-19 [...] Miscellaneous Notes * Telephone Encounter - Rivera Cox OSA - 02/03/2024 10:44 AM EDT Patient is scheduled on: RETURN CARDIOLOGY at 3:00 PM (30 min)Arrive by 2:45 PM Wednesday March 27, 2024 Appointment Provider:Yassine Mock PA-C in CARDIOLOGY [facility] * Telephone Encounter - Kristina Hatfield OSA - 02/03/2024 10:22 AM EDT Pt is over due for his cardio f/u Please call pt to schedule documented in this encounter Plan of Treatment Upcoming Encounters Date Type Department Care Team (Late st Contact Info) Description 03/27/2024 3:00 PM EDT Office Visit Cardiology, Health system [address] [place] [address] Yassine Mock PA-C [address] [place] [address] 07/20/2024 1:15 PM EST Office Visit Hematology/Oncology [facility] [address] [facility] [place] [phone] Jorgito Moncada MD [address] [facility] [place] [address] 08/08/2024 1:00 PM EST Office Visit Family Practice [facility] [address] [place] [address] Sunny Hatfield DO [address] [place] [address] Health Maintenance Due Date Last Done Comments [...] this encounter Medical Devices Implanted Type Area Tunnel Inspector Device Identifier Shelf Expiration Date Model / Serial / Lot Stent Viabahn [id number] 135cm - [id number] Implanted:06/19 [place]isc[place] Pride [place] [facility] [place] [employer] [id number] 12/06/2021 [id number] / [id number] / [id number] Graft Stent Viab 7mmx7.5cm - [id number] Implanted:06/19 by Francisca Pride [place] [facility] [place] [employer] [id number] 01/26/2022 [id number] / [id number] / [id number] documented as of this encounter Advance Directives Documents on File Type Date Recorded Patient Teaching Supervisor Expl anation Advance Directives and Living Will 03/27/2014 LIVING WILL Power of Coding Compliance Specialist 03/27/2014 POWER OF A TTORNEY DURABLE HEALTH CARE POA * Full Code (Latest Code Status on File) Date Activated Date Inactivated Comments 07/07/2019 11:09 AM 07/08/2019 2:52 PM This orde r reflects the patients wishes and were consensually agreed upon. Care Teams Assistant Professor Of History Relationship Specialty Start Date End Date Sunny Hatfield DO [address] [place] [address] PCP - General Family Medicine 08/05/23 documented as of this encounter
--- OUTSIDE RECORDS SUMMARY | 2024-07-09 10:26 | External Medical Summary | Summary of Care ---
Author Name Unknown Organization [facility] Address [address] [facility] [place] [address] Phone [phone] Care Team Providers Care Wildlife Biostation Research Ecologist Name Role Phone Sunny Hatfield Primary Care Provider Reason for Visit * Reason Onset Date Comments Test Results Lab 01/19/2024 Encounter Details Date Type Department Care Team (Late st Contact Info) Description 01/19/2024 Telephone Hematology/Oncology [facility] [address] [facility] [place] [phone] Jorgito Moncada MD [address] [facility] [place] [address] Test Results Lab Allergies Active Allergy Reactions [...] Encounter - Rivera Jain RN - 01/19/2024 12:29 PM EDT Called patient and back, informed of the results and the referral to ENT which they are agreeable to. * Telephone Encounter - Katie Hoffman OSA [...] Description 02/03/2024 10:00 AM EDT Office Visit [facility] [address] [place] [address] Yany Gallardo CRNP [address] [place] [address] 07/20/2024 1:15 PM EST Office Visit Hematology/Oncology [facility] [address] [place] [phone] Jorgito Moncada MD [address] [facility] [place] [address] 08/08/2024 1:00 PM EST Office Visit [facility] [address] [place] [address] Sunny Htafield DO [address] [place] [address] Health Maintenance Due Date Last Done Comments [...] this encounter Medical Devices Implanted Type Area Drug Room Clerk Device Identifier Shelf Expiration Date Model / Serial / Lot Stent Viabahn [id number] 135cm - [id number] Implanted:06/19 by Francisca Pride [place] [facility] [place] [employer] [id number] 12/06/2021 [id number] / [id number] / [id number] Graft Stent Viab 7mmx7.5cm - [id number] Implanted:06/19 by Francisca Pride [place] [facility] [place] [employer] [id number] 01/26/2022 [id number] / [id number] / [id number] documented as of this encounter Advance Directives Documents on File Type Date Recorded Patient Director Social Service Expl anation Advance Directives and Living Will 03/27/2014 LIVING WILL Power of Document Control Specialist 03/27/2014 POWER OF A TTORNEY DURABLE HEALTH CARE POA * Full Code (Latest Code Status on File) Date Activated Date Inactivated Comments 07/07/2019 11:09 AM 07/08/2019 2:52 PM This orde r reflects the patients wishes and were consensually agreed upon. Care Teams Wildlife Biostation Research Ecologist Relationship Specialty Start Date End Date Sunny Hatfield DO [address] [place] [address] PCP - General Family Medicine 08/05/23 documented as of this encounter
--- OUTSIDE RECORDS SUMMARY | 2024-07-09 10:26 | External Medical Summary | Summary of Care ---
Author Name Unknown Organization [facility] Address [address] [facility] [place] [address] Phone [phone] Care Team Providers Care Tool Crib Lead Name Role Phone Sunny Hatfieldnoemy Primary Care Provider Reason for Referral * Evaluate & Treat - Unlimited Visits (Within 3 days (urgent)) - Authorized Specialty Diagnoses / Procedures Referred By Von lopez Referred To Contact Nephrology Diagnoses Stage 4 chronic kidney disease (HCC) Yany Gallardo CRNP [address] [place] [address] Referral ID Status Reason Start Date Expiration Date Visits Requested Visits Authorized [id number] Authorized Specialty Services Required 02/21/[phone] Question Answer Referral Priority Within 3 days (urgent) Where should this appointment be scheduled? [facility] What condition is this patient being seen for? Chronic kidney disease Reason for Visit * Reason Onset Date Comments Referral 02/21/2024 Encounter Details Date Type Department Care Team (Late st Contact Info) Description 02/21/2024 Telephone Family Practice [facility] [address] [place] [address] Yany Gallardo CRNP [address] [place] [address] Referral Allergies Active Allergy Reactions Criticality Noted Date Comments Ciprofloxacin Nausea/vomiting 06/30/2012 Iodinated Contrast Media 01/31/2020 IVP DYE kidney issues documented as of this encounter (statuses as of 02/22/2024) Medications Medication Sig Dispensed Refills Start Date [...] as of this encounter (statuses as of 02/22/2024) Active Problems Problem Noted Date Diagnosed Date [...] as of this encounter (statuses as of 02/22/2024) Resolved Problems Problem Noted Date Diagnosed Date Resolved Date Chronic renal impairment, stage 3b 08/05/2023 09/02/2023 Chronic renal insufficiency, stage III (moderate) 07/07/2019 09/02/2023 Overview: Per CKD protocol documented as of this encounter (statuses as of 02/22/2024) Immunizations Name Administration Dates Next Due COVID-19 [...] Care Team (Late st Contact Info) Description 02/23/2024 1:00 PM EDT [facility] [address] [place] [address] [place] [address] Bry Taylor MD [address] [place] [address] [place] [address] 02/24/2024 12:00 PM EDT Office Visit Otolaryngology [facility] [address] [place] [address] Isaiah Rodríguez DO [address] [place] [address] 03/27/2024 3:00 PM EDT Office Visit Cardiology, [facility] [address] [place] [address] Yassine Mock PAClaytonC [address] [place] [address] 07/20/2024 1:15 PM EST Office Visit Hematology/Oncology [facility] [address] [facility] [place], [place] [address] Jorgito Moncada MD [address] [facility] [place], [place] [address] 08/08/2024 1:00 PM EST Office Visit Family Practice [facility] [address] [place] [address] Sunny Hatfield DO [address] [place] [address] Scheduled Orders Name Type Priority Associated Diagnoses Orde r Schedule ALBUMIN / CREATININE RATIO, URINE Lab Routine Stage 4 chronic kidney disease (HCC) Expected: 02/21/2024 (Approximate), Expires: 2025 BASIC METABOLIC PANEL Lab Routine Stage 4 chronic kidney disease (HCC) Expected: 02/21/2024 (Approximate), Expires: 2025 US RENAL Medical Imaging Routine Stage 4 chronic [...] this encounter Medical Devices Implanted Type Area Farm Helper Device Identifier Shelf Expiration Date Model / Serial / Lot Stent Viabahn [id number] 135cm - [id number] Implanted:06/19 by Francisca Pride MD at [place] [facility] (Quantity not on file) [employer] [id number] 12/06/2021 [id number] / [id number] / [id number] Graft Stent Viab 7mmx7.5cm - [id number] Implanted:06/19 by Francisca Pride MD at [place] [facility] [place] (Quantity not on file) [employer] [id number] 01/26/2022 [id number] / [id number] / [id number] documented as of this encounter Visit Diagnoses Diagnosis Stage 4 chronic kidney disease (HCC)- Primary documented in this encounter Advance Directives Documents on File Type Date Recorded Patient Drilling Field Specialist Expl anation Advance Directives and Living Will 03/27/2014 LIVING WILL Power of Booster Pump Oiler 03/27/2014 POWER OF A TTORNEY DURABLE HEALTH CARE POA * Full Code (Latest Code Status on File) Date Activated Date Inactivated Comments 07/07/2019 11:09 AM 07/08/2019 2:52 PM This orde r reflects the patients wishes and were consensually agreed upon. Care Teams Tool Crib Lead Relationship Specialty Start Date End Date Sunny Hatfield DO [address] [place] [address] PCP - General Family Medicine 08/05/23 documented as of this encounter
--- OUTSIDE RECORDS SUMMARY | 2024-07-09 10:26 | External Medical Summary ---
Author Name Unknown Address Unknown Organization [facility] [address] [place] [address] Laboratory Report Ordering Provider Test Date Status MAYTE PACHECO 01/18/2024 09:09:47 Final Observation Date Value Abnormality Reference (Units ) Status BUN 01/18/2024 09:09:47 50 Above high normal 6-20 (mg/dL) Final Creatinine 01/18/2024 09:09:47 2.3 Above high normal 0.6-1.2 (mg/dL) Final Glomerular filtration rate/1.73 sq M.predicted [Volume Rate/Area] in Serum, Plasma or Blood by Creatinine-based formula (CKD-EPI) 01/18/2024 09:09:47 27 Below low normal >=60 (mL/min) Final eGFR is calculated based on the CKD-EPI 2020 equation Sodium 01/18/2024 09:09:47 140 135-146 (m mol/L) Final Potassium 01/18/2024 09:09:47 5.1 3.5-5.1 (m mol/L) Final Cl 01/18/2024 09:09:47 106 98-107 (mm ol/L) Final CO2 01/18/2024 09:09:47 23 22-32 (mmo l/L) Final Anion gap 01/18/2024 09:09:47 11 7-15 (mmol /L) Final Glucose 01/18/2024 09:09:47 102 70-120 (mg /dL) Final Albumin 01/18/2024 09:09:47 4.2 3.8-5.0 (g /dL) Final AST (Aspartate aminotransferase) 01/18/2024 09:09:47 9 Below low normal 10-50 (U/L) Final Alk Phos 01/18/2024 09:09:47 66 35-130 (U/ L) Final Bilirubin, Total 01/18/2024 09:09:47 0.3 <=1 .2 (mg/dL) Final Calcium 01/18/2024 09:09:47 9.9 8.4-10.2 ( mg/dL) Final Protein 01/18/2024 09:09:47 6.9 6.0-8.3 (g /dL) Final ALT (Alanine aminotransferase) 01/18/2024 09:09:47 <5 Below low normal 10-50 (U/L) Final Results rechecked. Performing Location [facility] [address] [place] [address]
--- OUTSIDE RECORDS SUMMARY | 2024-07-09 10:26 | External Medical Summary | Summary of Care ---
Author Name Unknown Organization [facility] Address [address] [place] [address] Phone [phone] Care Team Providers Care Industrial Electrical Engineer Name Role Phone Liu Sunny Sharon Primary Care Provider Reason for Visit * Reason Comments Follow Up 6 month f/u Encounter Details Date Type Department Care Team (Late st Contact Info) Description 02/03/2024 10:00 AM EDT Office Visit Family Practice [facility] [address] [place] [phone] Yany Gallardo CRNP [address] [place] [address] Encounter for long-term (current) use of medications*; Chronic renal impairment, stage 3b (HCC); Gastroesophageal reflux disease without esophagitis; Peripheral vascular disease (HCC); Coronary artery disease involving [place] coronary artery of [place] heart without angina pectoris; HTN, goal below 130/80; Asymptomatic stenosis of right carotid artery; 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) Allergies Active Allergy Reactions Criticality Noted Date Comments Ciprofloxacin Nausea/vomiting 06/30/2012 Iodinated Contrast Media 01/31/2020 IVP DYE kidney issues documented as of this encounter (statuses as of 02/14/2024) Medications Medication Sig Dispensed Refills Start Date [...] as of this encounter (statuses as of 02/14/2024) Active Problems Problem Noted Date Diagnosed Date [...] as of this encounter (statuses as of 02/14/2024) Resolved Problems Problem Noted Date Diagnosed Date Resolved Date Chronic renal impairment, stage 3b 08/05/2023 09/02/2023 Chronic renal insufficiency, stage III (moderate) 07/07/2019 09/02/2023 Overview: Per CKD protocol documented as of this encounter (statuses as of 02/14/2024) Immunizations Name Administration Dates Next Due COVID-19 [...] 0 01/16/1966 - 01/17/1996 Smokeless Tobacco: Never Tobacco Cessation:Counseling Given: Not Answered Alcohol Use Standard Drinks/Week Comments No 0 [...] Sign Reading Time Taken Comments Blood Pressure 150/80 02/03/2024 10:17 AM EDT Pulse 68 02/03/2024 9:51 AM EDT Temperature 37 C (98.6 F) 02/03/2024 9:51 AM EDT Respiratory Rate - - Oxygen Saturation 94% 02/03/2024 9:51 AM EDT Inhaled Oxygen Concentration - - Weight 67.4 kg (148 lb 9.6 oz) 02/03/2024 9:51 A M EDT Height 169.2 cm (5' 6.6") 02/03/2024 9:51 AM EDT Body Mass Index 23.55 02/03/2024 9:51 AM EDT documented in this encounter Functional [...] as of this encounter Progress Notes * Yany Gallardo CRNP - 02/03/2024 10:03 AM EDT Images from the original note were not included. History of Present Illness Manish Quinn is a 88 year old male that presents for Follow Up (6 month f/u ) HPI Here for routine follow up No concerns but is overdue for cardiology visit - BP uncontrolled Reviewed most recent labs as well Current Outpatient Medications Medication Sig Dispense Refill Pantoprazole Sodium 40 MG Oral Tablet Delayed Release (Protonix) Take 1 Tablet by mouth daily. 180 Tablet 3 amLODIPine Besylate 5 MG Oral Tablet (Norvasc) Take 1 Tablet by mouth in the morning. 90 Tablet 5 Clopidogrel Bisulfate 75 MG Oral Tablet (Plavix) Take 1 Tablet by mouth in the morning. 30 Tablet 11 Finasteride 5 MG Oral Tablet (Proscar) Take 1 Tablet by mouth in the morning. 90 Tablet 3 Lisinopril 5 MG Oral Tablet (Prinivil) Take 1 Tablet by mouth in the morning. 90 Tablet 3 Metoprolol Succinate ER 25 MG Oral Tablet Extended Release 24 Hour (toPROL XL) Take 1 Tablet by mouth in the morning. 90 Tablet 3 Rosuvastatin Calcium 20 MG Oral Tablet (Crestor) Take 1 Tablet by mouth in the morning. 90 Tablet 3 Tamsulosin HCl 0.4 MG Oral Capsule (Flomax) Take 1 Capsule by mouth in the morning. 90 Capsule 3 Simethicone 80 MG Oral Tablet Chewable Take 1 Tablet by mouth every 6 hours as needed for Gas. acetaminophen (TYLENOL) 500 MG Tablet Take by mouth as needed. Albuterol Sulfate HFA 108 (90 Base) MCG/ACT Inhalation Aerosol Solution daily as needed. aspirin enteric coated 81 MG TBEC Take by mouth 2 times a day. Fluticasone-Salmeterol 250-50 MCG/DOSE Inhalation Aerosol Powder Breath Activated 2 times a day. nitroglycerin (NITROSTAT) 0.4 MG SUBL 2 No current facility-administered medications for this visit. Physical Exam Vitals: 02/03/24 0951 02/03/24 1017 Temp: 37 C (98.6 F) Pulse: 68 SpO2: 94% BP: 164/68 150/80 BMI: 23.54 Physical Exam Vitals reviewed. Constitutional: Appearance: Normal appearance. HENT: Head: Normocephalic and atraumatic. Nose: Nose normal. Mouth/Throat: Mouth: Mucous membranes are moist. Eyes: Extraocular Movements: Extraocular movements intact. Conjunctiva/sclera: Conjunctivae normal. Pupils: Pupils are equal, round, and reactive to light. Cardiovascular: Rate and Rhythm: Normal rate and regular rhythm. Heart sounds: Normal heart sounds. Pulmonary: Effort: Pulmonary effort is normal. Breath sounds: Normal breath sounds. Abdominal: General: There is no distension. Palpations: Abdomen is soft. Tenderness: There is no abdominal tenderness. Musculoskeletal: Cervical back: Neck supple. Right lower leg: No edema. Left lower leg: No edema. Lymphadenopathy: Cervical: No cervical adenopathy. Skin: General: Skin is warm and dry. Capillary Refill: Capillary refill takes less than 2 seconds. Neurological: General: No focal deficit present. Mental Status: He is alert and oriented to person, place, and time. Psychiatric: Behavior: Behavior normal. Thought Content: Thought content normal. Assessment and Plan Encounter for long-term (current) use of medications Discussed relevant health maintenance topics Chronic renal impairment, stage 3b (HCC) - COMPREHENSIVE METABOLIC PANEL; Future Gastroesophageal reflux disease without esophagitis Stable on PPI Peripheral vascular disease (HCC) Following vascular Coronary artery disease involving [place] coronary artery of [place] heart without angina pectoris Due for cardiology follow up Denies chest pain, dyspnea HTN, goal below 130/80 Above goal - defer management to upcoming cardiology Asymptomatic stenosis of right carotid artery Following vascular 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 Labs again when in for ENT visit. Time: I spent a total of 30-39 minutes (exact time 30 mins) on the date of service in preparation, delivery, and documentation of the care provided to Manish Quinn excluding any time spent in the performance of separately billed services. documented in this encounter Plan of Treatment Upcoming Encounters Date Type Department Care Team (Late st Contact Info) Description 03/27/2024 3:00 PM EDT Office Visit Cardiology, [facility] [address] [place] [phone] Yassine Mock PA-C [address] [place] [address] 07/20/2024 1:15 PM EST Office Visit Hematology/Oncology [facility] [address] [facility] [facility] [address] [facility] [place] [id number] Jorgito Moncada MD [address] [facility] [facility] [address] [facility] [place] [address] 08/08/2024 1:00 PM EST Office Visit Family Practice [facility] [address] [place] [phone] Sunny Hatfield DO [address] [place] [address] Scheduled Orders Name Type Priority Associated Diagnoses Orde r Schedule COMPREHENSIVE METABOLIC PANEL Lab Routine Chronic renal impairment, stage 3b (HCC) Expected: 02/03/2024 (Approximate), Expires: 02/02/2025 Health Maintenance Due Date Last Done Comments [...] this encounter Medical Devices Implanted Type Area Education Supervisor Device Identifier Shelf Expiration Date Model / Serial / Lot Stent Viabahn [id number] 135cm - [id number] Implanted:06/19 by Francisca Pride MD at OR [facility] (Quantity not on file) [employer] [id number] 12/06/2021 [id number] / [id number] / [id number] Graft Stent Viab 7mmx7.5cm - [id number] Implanted:06/19 by Francisca Pride MD at OR [facility] (Quantity not on file) [employer] [id number] 01/26/2022 [id number] / [id number] / [id number] documented as of this encounter Visit Diagnoses Diagnosis Encounter for long-term (current) use of medications- Primary Encounter for long-term (current) use of other medications Chronic renal impairment, stage 3b (HCC) Gastroesophageal reflux disease without esophagitis Esophageal reflux Peripheral vascular disease (HCC) Peripheral vascular disease, unspecified Coronary artery disease involving [place] coronary artery of [place] heart without angina pectoris HTN, goal below 130/80 Unspecified essential hypertension Asymptomatic stenosis of right carotid artery 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 Care Teams Industrial Electrical Engineer Relationship Specialty Start Date End Date Sunny Hatfield DO [address] [place] [id number] PCP - General Family Medicine 08/05/23 documented as of this encounter
--- OUTSIDE RECORDS SUMMARY | 2024-07-09 10:26 | External Medical Summary ---
Author Name Unknown Address Unknown Organization K09:[facility] [place] [address] Laboratory Report Ordering Provider Test Date Status MAYTE PACHECO 01/18/2024 09:09:47 Final Observation Date Value Abnormality Reference (Units ) Status SYNC LEUKOCYTES IN BLOOD BY AUTOMATED COUNT 01/18/2024 09:09:47 6.49 4.00-10.80 (K/uL) Final Segs 01/18/2024 09:09:47 60.3 40.0-75.0 (%) Final Lymphs % 01/18/2024 09:09:47 21.4 18.0-42.0 (%) Final Monos 01/18/2024 09:09:47 12.0 Above high normal 1.0-11.0 (%) Final Eosinophils 01/18/2024 09:09:47 6.0 0.0-6.0 (%) Final Basos 01/18/2024 09:09:47 0.3 0.0-2.0 (%) Final Absolute Segs 01/18/2024 09:09:47 3.91 1.80-7.70 (K/uL) Final Lymphs, absolute 01/18/2024 09:09:47 1.39 1.00-4.80 (K/ul) Final Monos, Abs 01/18/2024 09:09:47 0.78 0.00-1.10 (K/uL) Final Eos, Abs 01/18/2024 09:09:47 0.39 0.00-0.70 (K/uL) Final Basos, Abs 01/18/2024 09:09:47 0.02 0.00-0.20 (K/uL) Final Performing Location [facility] [place] [place] [address]
--- OUTSIDE RECORDS SUMMARY | 2024-07-09 10:26 | External Medical Summary | Summary of Care ---
Author Name Unknown Organization [facility] Address [address] [place] [address] Phone [phone] Care Team Providers Care Calibration Specialist Name Role Phone Sunny Hatfield Primary Care Provider Reason for Visit * Reason Comments Follow Up Encounter Details Date Type Department Care Team (Late st Contact Info) Description 01/12/2024 11:30 AM EDT Office Visit Vascular Surgery, [facility] [address] [facility] [place] [address] Hieu Colbert MD [address] [place] [address] Peripheral vascular disease (HCC)*; Asymptomatic carotid artery stenosis, unspecified laterality; Occlusion and stenosis of bilateral carotid arteries; Benign essential hypertension; Dyslipidemia, goal LDL below 70; Chronic renal impairment, stage 3b (HCC); Hx of CABG; History of tobacco abuse; HTN, goal below 130/80 Allergies Active Allergy Reactions Criticality Noted Date Comments Ciprofloxacin Nausea/vomiting 06/30/2012 Iodinated Contrast Media 01/31/2020 IVP DYE kidney issues documented as of this encounter (statuses as of 01/12/2024) Medications Medication Sig Dispensed Refills Start Date [...] as of this encounter (statuses as of 01/12/2024) Active Problems Problem Noted Date Diagnosed Date [...] as of this encounter (statuses as of 01/12/2024) Resolved Problems Problem Noted Date Diagnosed Date Resolved Date Chronic renal impairment, stage 3b 08/05/2023 09/02/2023 Chronic renal insufficiency, stage III (moderate) 07/07/2019 09/02/2023 Overview: Per CKD protocol documented as of this encounter (statuses as of 01/12/2024) Immunizations Name Administration Dates Next Due COVID-19 [...] 01/17/1996 Smokeless Tobacco: Never Tobacco Cessation:Counseling Given: No Alcohol Use Standard Drinks/Week Comments No 0 [...] Sign Reading Time Taken Comments Blood Pressure 198/82 01/12/2024 10:59 AM EDT Pulse 67 01/12/2024 10:59 AM EDT Temperature - - Respiratory Rate - - Oxygen Saturation - - Inhaled Oxygen Concentration - - Weight 67 kg (147 lb 11.2 oz) 01/12/2024 10:59 A M EDT Height - - Body Mass Index 23.41 04/21/2023 1:18 PM EDT documented in this [...] as of this encounter Progress Notes * Ruben Garrido PA-C - 01/12/2024 11:10 AM EDT Date of Service: 01/11/2024 9:17 PM Manish Quinn is a 88 year old male. Referring Physician: Bandar Carnes, Lead Operator, Dr. Mancilla, [facility]. Chief Complaint: Annual surveillance of PAD and carotid disease Reports no interval changes in overall health in interval since last clinic visit. Has a reducible hernia right groin which is not causing him pain. Has some leg pain when he first lays down at nightbut does not claudicate. HPI: Mr. Quinn is a pleasant reformed smoker with a history of PAD and carotid disease. Previously followed by [facility], until his vascular surgeon left the system and he transferred care to [facility] Vascular Surgery in 2019. PAD: S/P bilateral common iliac artery stenting by Dr. Pham at [facility] 06/09/2011 for low back and hip discomfort with ambulation. Post operatively he states that his symptoms were relieved. He developed recurrence in 2018 and eventually underwent abdominal aortogram, left lower extremity angiogram, percutaneous ultrasound guided left brachial access, balloon angioplasty left NAN/EIA with 5 then 7 x 200 mm [place] balloon, Left NAN stent placement with 7 x 79 mm VBX, postdilated with 10 x 80 mm [place] balloon, Left EIA stent placement with 7 x 75 mm Viabahn post-dilated with 7 x 200mm [place] balloon on 07/07/[address] Pride. performed for severe left leg claudication, and likely left foot ischemic rest pain. Rest pain and claudication left leg relieved post op. Denies any rest pain or limiting claudication right leg. Reports occasional right hip pain when he walks several hundred feet. Good and bad days. 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 Moncada. H/O TIA 2008 with left sided weakness. No recent CVA/TIA, amaurosis fugax. 11/04/2022 Carotid duplex demonstrates CHAY 70-99% stenosis, LICA less than 50% stenosis. Current Outpatient Medications Medication Sig Dispense Refill [...] No current facility-administered medications for this visit. Review of patient's allergies indicates: Allergen Reactions Ciprofloxacin Nausea/vomiting Iodinated Contrast Media IVP DYE kidney issues Patient Active Problem List Diagnosis Mantle cell [...] performed by Francisca Pride MD at [facility] CARDIAC CATH SCANNED RESULT 09/28/2003 2 Cypher drug eluding cardiac stents COLONOSCOPY, DIAGNOSTIC (RECTUM) 04/02/2017 inflammation on bx, diverticulosis/COLONOSCOPY FLEXIBLE PROXIMAL DIAGNOSTIC performed by Marika Olivarez DO at ENDOSCOPY [facility] EGD, FLEXIBLE, DIAGNOSTIC 07/01/2012 UPPER GI ENDOSCOPY DIAGNOSTIC performed by Marika Olivarez DO at [facility] EGD, FLEXIBLE, DIAGNOSTIC 08/24/2013 ESOPHAGOGASTRODUODENOSCOPY (EGD), FLEXIBLE, TRANSORAL, DIAGNOSTIC performed by Marika Olivarez DO at [facility] EGD, FLEXIBLE, DIAGNOSTIC 12/21/2014 mild gastritis, HH/ESOPHAGOGASTRODUODENOSCOPY (EGD), FLEXIBLE, TRANSORAL, DIAGNOSTIC performed by Marika Olivarez DO at ENDOSCOPY [facility] EGD, FLEXIBLE, DIAGNOSTIC 06/25/2016 HH, normal/ESOPHAGOGASTRODUODENOSCOPY (EGD), FLEXIBLE, TRANSORAL, DIAGNOSTIC performed by Marika Olivarez DO at ENDOSCOPY [facility] EGD, FLEXIBLE, DIAGNOSTIC 04/02/2017 inflammation/ESOPHAGOGASTRODUODENOSCOPY (EGD), FLEXIBLE, TRANSORAL, DIAGNOSTIC performed by Marika Ellis DO at ENDOSCOPY [facility] EGD, FLEXIBLE, DIAGNOSTIC 09/19/2020 Abnormal esophageal motility, hiatal hernia / [facility] FEM/POP ARTERY REVASC W/ STENT+ANGIOPLASTY Left 07/07/2019 FEM/POP ARTERY REVASC W/ STENT+ANGIOPLASTY performed by Francisca Pride MD at [facility] INFORMATION Left 07/30/2010 cryoablation left kidney IR ARTERIOGRAM EXTREMITY UNILATERAL Left 07/07/2019 IMAGING SUPERVISION & INTERPRETATION EXTREMITY UNILATERAL performed by Francisca Pride MD at [facility] LUMBAR / SACRAL EPIDURAL, SINGLE LEVEL 10/27/2013 INJECTION TRANSFORAMINAL EPIDURAL LUMBAR OR SACRAL performed by Margarito Lyon DO at OR [facility] REMOVE CATARACT, INSERT LENS PROSTH OU-Dr. Juan SACROILIAC JOINT INJECT W/GUIDANCE 05/08/2019 INJECTION SACROILIAC JOINT performed by Margarito Lyon DO at OR [facility] SACROILIAC JOINT INJECT W/GUIDANCE 06/01/2019 INJECTION SACROILIAC JOINT performed by Margarito Lyon DO at OR [facility] SACROILIAC JOINT INJECT W/GUIDANCE 04/04/2020 INJECTION SACROILIAC JOINT performed by Margarito Lyon DO at OR [facility] SACROILIAC JOINT INJECT W/GUIDANCE 05/13/2020 INJECTION SACROILIAC JOINT performed by Margarito Lyon, DO at OR [facility] SACROILIAC JOINT INJECT W/GUIDANCE 02/06/2021 INJECTION SACROILIAC JOINT performed by Margarito Lyon, DO at OR [facility] SACROILIAC JOINT INJECT W/GUIDANCE 04/15/2022 INJECTION SACROILIAC JOINT performed by Margarito Lyon, DO at OR [facility] Family History Problem Relation Name Age of Onset Gastro-intestinal disorder Grandmother (Maternal) Genitourinary Disorder Grandfather (Maternal) Eye Problems Mother AMD Glaucoma None Social History Socioeconomic History Marital status: Spouse name: Not on file Number of children: Not on file Years of education: Not on file Highest education level: Not on file Occupational History Not on file Tobacco Use Smoking status: Former Current packs/day: 0.00 Average packs/day: 1 pack/day for 30.0 years (30.0 ttl pk-yrs) Types: Cigarettes Start date: 01/16/1966 Quit date: 01/17/1996 Years since quittin.0 Smokeless tobacco: Never Vaping Use Vaping status: Never Used Substance and Sexual Activity Alcohol use: No Drug use: No Sexual activity: Not on file Other Topics Concern Not on file Social History Narrative Not on file Social Determinants of Health Financial Resource Strain: Not on file Food Insecurity: Not on file Transportation Needs: Not on file Social Connections: Unknown (01/04/2024) Social Connections How often do you feel lonely or isolated from those around you? (Adult - for ages 18 years and over): Not on file Housing Stability: Not on file Vaping/E-Cigarette Use Vaping/E-Cigarette Use Never User Vaping/E-Cigarette Substances Vaping/E-Cigarette Devices REVIEW OF SYSTEMS: Constitutional: Denies fever/chills. Eyes: denies amaurosis fugax. Cardiovascular: denies anginal symptoms (reports musculoskeletal pain under left axilla), reports CAD - hx of CABG/PCIs, PCI ([address] 03/[address] [facility]). Respiratory: denies shortness of breath, reports improved OLMEDO since PCI 03/2019. Gastrointestinal: denies melena, denies hematochezia. Genitourinary: denies hematuria. Skin: denies ulcers. Neurological: denies recent TIA/CVA, reports TIA 2011. GENERAL MULTI-SYSTEM PHYSICAL EXAM: VITAL SIGNS: There were no vitals taken for this visit. GENERAL MULTI-SYSTEM PHYSICAL EXAM: GENERAL: Normal grooming habits, no acute distress and appears stated age. NECK: no masses. LYMPH: cervical nodes unremarkable. RESPIRATORY: respiratory effort normal and lungs clear. CARDIOVASCULAR: RRR GASTROINTESTINAL: no tenderness, protuberant, and abdominal aorta not palpable. SKIN: no ulcers, no rash, no induration, and no dependent rubor. PSYCHIATRIC: orientation to time, place and person normal and recent and remote memory normal. EYES: conjunctivae normal. NEUROLOGIC: Motor function intact. PULSE SCALE: Carotid Right:----Bruit: No Left:----Bruit: Yes Radial Right: 3 Left: 3 Femoral Right: 1 Left: 2 Popliteal Right: 0 Left: 2 Dorsalis Pedis Right: 0 Left: 2 Posterior Tibial Right: 0 Left: 0 PULSE SCALE: 4=Aneurysmal; 3=Normal; 2=Diminished; 1=Barely Palpable; 0=Absent DIAGNOSTIC STUDIES: 01/04/24 DOMINGO: 0.60/0.79 01/03/26 Carotid Duplex: CHAY 489/151, LICA 87/17, ante verts 01/04/24 BLE Duplex: REIA 64, RCFA 91, RDFA 30, RSFA 272/68/49/46, R Pop 43, R TPT 27. LCIA 202, CHINMAY 143, LCFA 373, LDFA 118, LSFA 311/55/58/69, L Pop 46, L TPT 33 The above diagnostic images were directly visualized and independently interpreted by me on 01/12/2024 with results as above 11/26/[address] Head/Neck: Calcified plaques of ascending aorta, aortic arch, origin of LSCA and remainder of LSCA,, LCCA, innominate artery, proximal RSCA, and B/L carotid artery bifurcations. R>L.Ascending Aorta 4.1 cm, on axial view 11/30/2022 ADDENDUM: 11/26/2022 CT Head/Neck w/o contrast - Radiologist Read IMPRESSION 1. No acute intracranial abnormality is identified. 2. Mild to moderate mucosal thickening and opacification of the left frontal sinus and maxillary sinuses. Mild mucosal thickening of the ethmoid air cells. 3. Increased soft tissue fullness within the right glossotonsillar fossa compared with the prior neck CT dated 12/21/2018. Given the location of the patient's original tumor, a PET CT is recommended to exclude recurrent tumor. 4. Nodular density within the left upper lobe that measures 6 mm. This region may be evaluated on the follow-up PET CT. 11/04/2022 Carotid Duplex CHAY 442/115 and LICA 87/25. 11/04/2022 BLE Art Duplex: RLE: EIA 48, ADJUNCT INSTRUCTOR OF WOMEN'S STUDIES 40, DFA 29, SFA 210/51/36/24, Pop 26, TPT 19. LLE: EIA 244, ADJUNCT IN[employer]CTOR [employer]OMEN[employer]IES 333, DFA 108, SFA 157/54/54/38, Pop 40, TPT 31. 11/04/2022 DOMINGO .56/.79. 10/07/20: DOMINGO: .56/1 10/07/20: Art duplex: R NAN UI, R EIA 61, R ADJUNCT INSTRUCTOR [employer]OMEN[employer]UDIES (plaque) 40, R SFA 78, Prox 114, mid 38, dist 41, pop 24, L NAN UI, L EIA 149, L ADJUNCT INSTRUCTOR [employer]OMEN[employer]UDIES 242, L DFA 206, Left SFA 338/79/69, pop 63 10/07/20: Carotid duplex: CHAY 352/129, LICA 74/21 01/18/20 DOMINGO: .50/1 01/18/20 LE art duplex: CARLIE 56, RCF 58, RDF 76, RSFA 91/36, R pop 17 LEI 174, LCF 355, LDF 227, LSFA 331/104, L pop 76 01/18/20 carotid duplex: CHAY 333/112, LICA 75/16 07/25/19 LE art duplex: CARLIE 58, RCF 259, RDF 19, RSFA 86/33, R pop 27, TPT 23, AT 27, PT 19, peroneal 14 LEI 136, LCF 208, LDF 201, LSFA 298/81/123, L pop 74, TPT 56, AT 60, PT 63, peroneal 40 07/25/19 DOMINGO: .49/1 05/18/19 DOMINGO: .65/.41 05/18/19 carotid duplex: CHAY 232/76, LICA 95/20 11/07/18 LE art duplex: CARLIE 69, RCF 63, RDF 23, RSFA 139/48 LEI 40, LCF 44, LDF 23, LSFA 61/52 11/07/18 exercise doppler right .69 at rest/.81. with exercise left .59 at rest/.64 with exercise 08/03/[address] [facility] [place]: DOMINGO: .81/.71 08/03/18: [facility] Carotid duplex: CHAY 215/84, LICA 68/21. LABS Creatinine Results: Lab Results Component Value Date/Time CREATININE - [facility] 2.1 (H) 08/05/2023 11:37 AM CREATININE - [facility] 2.0 (H) 12/31/2021 09:36 AM CREATININE - [facility] 1.9 (H) 05/30/2021 02:52 PM CREATININE - [facility] 2.0 (H) 05/30/2020 11:24 AM CREATININE - [facility] 1.8 (H) 07/08/2019 06:20 AM CREATININE - [facility] 1.9 (H) 07/07/2019 12:04 PM CREATININE, RANDOM URINE - [facility] 77 08/05/2023 11:45 AM CREATININE-OUTSIDE LAB 2.22 (H) 04/24/2022 09:20 AM CREATININE-OUTSIDE LAB 1.92 (H) 12/23/2021 08:34 AM CREATININE-OUTSIDE LAB 2.10 (H) 10/16/2021 08:57 AM Lab Results Component Value Date/Time LDL CHOLESTEROL (CALCULATED) - [facility] 46 08/05/2023 11:37 AM LDL CHOLESTEROL-OUTSIDE LAB 66 04/24/2022 09:20 AM Hemoglobin Results: Lab Results Component Value Date/Time HGB 12.9 (L) 08/05/2023 11:37 AM HGB 14.1 12/31/2021 09:36 AM HGB 14.3 05/30/2021 02:52 PM HGB 14.4 05/30/2020 11:24 AM HGB 13.2 (L) 07/08/2019 06:20 AM HGB 12.8 (L) 07/07/2019 12:04 PM The above clinical lab tests were reviewed by me on 01/12/24 IMPRESSIONS: Asymptomatic 70-99% CHAY stenosis. Asymptomatic < 50% LICA stenosis. 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 Moncada. 2022 CTA Head/Neck revealed mild to moderate mucosal thickening and opacification of the left frontal sinus and maxillary sinuses, mild mucosal thickening of the ethmoid air cells, and increased soft tissue fullness within the right glossotonsillar fossa compared with the prior neck CT dated 12/21/2018. PET scan 12/28/22: Relatively decreased activity in the right palatine tonsillar region compared to the left, however, both are within normal limits of variation in this location. PAD without claudication, rest pain, ulcers. S/P abdominal aortogram, left lower extremity angiogram, percutaneous ultrasound guided left brachial access, balloon angioplasty left NAN/EIA with 5 then 7 x 200 mm [place] balloon, Left NAN stent placement with 7 x 79 mm VBX, postdilated with 10 x 80 mm [place] balloon, Left EIA stent placement with 7 x 75 mm Viabahn post-dilated with 7 x 200 mm [place] balloon on 07/07/[address] Pride. perform ed for severe left leg claudication, and likely left foot ischemic rest pain. Rest pain and claudication resolved post op. S/P bilateral common iliac artery stenting by Dr. Pham at [facility] 06/09/2011 for low back and hip discomfort with ambulation; symptoms relieved post op and recurred 2017. (started on Plavix by [facility] Ananda) CAD with PCI . CABG x 3 1996. HTN. Dyslipidemia. Reformed smoker. CKD stage III/IV. H/O cryoablation of the L kidney for Renal CA 2010 at [facility]. Atrophic left kidney. H/O DDD/spinal stenosis. PLAN: The patient was counseled regarding the pathophysiology and natural history of carotid disease, as well as the symptoms of CVA/TIA/amaurosis fugax. R carotid stenosis remains asymptomatic with slight increase in velocities. We continue to NOT recommend rushing in to an intervention considering his age and cardiac hx, as well as other co-morbidities (CKD, etc). Will continue conservative management The patient was counseled regarding the pathophysiology and natural history of peripheral vascular disease, as well as the interventional and noninterventional therapeutic options. PAD stable with no rest pain or ulcerations Continue daily 81 mg ASA for antiplatelet therapy. Continue daily 20 mg Crestor for dyslipidemia and Pleiotropic effects of statins. Good foot care and footwear encouraged. RTC [address] Valencia with DOMINGO, BLE Art Duplex and Carotid Duplex [address] Valencia's previous attestation: Mr. Quinn, his Tory, and I had a candid discussion regarding the management options for asymptomatic 70-99% carotid disease. Given his age and significant comorbidities: CAD with PCI . CABG x 3 1996. HTN. Dyslipidemia. Reformed smoker. CKD stage III/IV. H/O cryoablation of the L kidney for Renal CA 2010 at [facility]. Atrophic left kidney. H/O DDD/spinal stenosis. I recommend continued best medical management. I think he will live longer with a better quality oflife if we pursue this route. Should he develop symptomatic carotid disease, then we can revisit surgical options. I spoke to his daughter, Irma, by phone and attempted to contact his son Eulogio, with our decision. I plan to see Mr. Quinn in one year for PAD and carotid disease surveillance. Continue to follow with Dr. Valencia. Discussed his right groin hernia and reasons he would seek repair or emergent treatment. Follow up one year with studies Hieu Colbert MD Section of Vascular [place] [address] [phone] documented in this encounter Nursing Notes * Elena Murray CMA - 01/12/2024 11:02 AM EDT Reviewed the option of transferring scripts to [facility] pharmacy with patient and / or family. Elena Murray CMA documented in this encounter Plan of Treatment Upcoming Encounters Date Type Department Care Team (Late st Contact Info) Description 01/18/2024 8:45 AM EDT Office Visit Hematology/Oncology [facility] [address] [facility] [place] [phone] Jorgito Moncada MD [address] [facility] [place] [address] 02/03/2024 10:00 AM EDT Office Visit [facility] [address] [place] [id number] Yany Gallardo CRNP [address] [place] [address] 08/08/2024 1:00 PM EST Office Visit [facility] [address] [place] [address] Sunny Hatfield DO [address] [place] [address] Scheduled Orders Name Type Priority Associated Diagnoses Orde r Schedule VASC ARCTIC VILLAGE ART DUP BILAT LE Medical Imaging Routine Peripheral vascular disease (HCC) Ordered: 01/12/2024 VASC ANKLE BRACHIAL INDICES WITHOUT PPG (PAD) Medical Imaging Routine Peripheral vascular disease (HCC) Ordered: 01/12/2024 [facility] DUPLEX CAROTID BILAT Medical Imaging Routine Asymptomatic carotid artery stenosis, unspecified laterality Occlusion and stenosis of bilateral carotid arteries Ordered: 01/12/2024 Health Maintenance Due Date Last Done Comments Depression Screening 1947 Alpha-1 Antitrypsin 02/19/1954 DTaP,Tdap,and Td Vaccines (1 - Tdap) 02/19/1954 Pneumococcal Vaccine: 65+ Years (3 of 3 - PCV) 11/03/2019 11/02/2018, 04/01/2017 COVID-19 Vaccine (3 - Moderna risk series) 10/22/2020 09/24/2020, 08/20/2020 *COPD SEVERITY VERIFIED BY PFT 08/07/2023 Albumin/Creatinine Ratio 08/05/2024 08/05/2023 O2 ASSESSMENT COMPLETED IN PAST YEAR FOR COPD 08/05/2024 08/05/2023 Zoster Vaccines Completed 08/08/2020, 05/19, 06/18/2013 Influenza Vaccine (FLU shot) Completed , 04/24/2022, 04/23/2021, Additional history exists GARDASIL-HPV IMMUNIZATION SERIES Aged Out No longer eligible based on patient's age to complete this topic Hepatitis B Aged Out No longer eligi ble based on patient's age to complete this topic MENINGOCOCCAL (MENACTRA/MENVEO) Aged Out No longer eligible based on patient's age to complete this topic documented as of this encounter Medical Devices Implanted Type Area Chemistry Technical Officer Device Identifier Shelf Expiration Date Model / Serial / Lot Stent Viabahn [id number] - [id number] Implanted:06/19 by Francisca Pride MD at [facility] (Quantity not on file) [employer] [id number] 12/06/2021 [id number] / [id number] / [id number] Graft Stent Viab 7mmx7.5cm - [id number] Implanted:06/19 by Francisca Pride MD at [facility] (Quantity not on file) [employer] [id number] 01/26/2022 [id number] / [id number] / [id number] documented as of this encounter Visit Diagnoses Diagnosis Peripheral vascular disease (HCC)- Primary Peripheral vascular disease, unspecified Asymptomatic carotid artery stenosis, unspecified laterality Occlusion and stenosis of bilateral carotid arteries Benign essential hypertension Essential hypertension, benign Dyslipidemia, goal LDL below 70 Other and unspecified hyperlipidemia Chronic renal impairment, stage 3b (HCC) Hx of CABG Postsurgical aortocoronary bypass status History of tobacco abuse Personal history of tobacco use, presenting hazards to health HTN, goal below 130/80 Unspecified essential hypertension documented in this encounter Advance Directives Documents on File Type Date Recorded Patient Purchase Analyst Expl anation Advance Directives and Living Will 03/27/2014 LIVING WILL Power of Credit And Collection Manager 03/27/2014 POWER OF A TTORNEY DURABLE HEALTH CARE POA * Full Code (Latest Code Status on File) Date Activated Date Inactivated Comments 07/07/2019 11:09 AM 07/08/2019 2:52 PM This orde r reflects the patients wishes and were consensually agreed upon. Care Teams Calibration Specialist Relationship Specialty Start Date End Date Sunny Hatfield DO [address] [facility] [place] [address] PCP - General Family Medicine 08/05/23 documented as of this encounter
--- OUTSIDE RECORDS SUMMARY | 2024-07-09 10:26 | External Medical Summary | Summary of Care ---
Author Name Unknown Organization [facility] Address [address] [facility] [place] [address] Phone [phone] Care Team Providers Care Baseball Sewer Hand Name Role Phone Vidal Hatfieldvor Sharon Primary Care Provider Reason for Visit * Reason Onset Date Comments Appointment 02/03/2024 Encounter Details Date Type Department Care Team (Late st Contact Info) Description 02/03/2024 Telephone Family Practice [facility] [address] [place] [address] Yany Gallardo CRNP [address] [facility] [place] [address] Appointment Allergies Active Allergy Reactions [...] 2024 Appointment Provider:Yassine Mock PA-C in CARDIOLOGY [facility] * Telephone Encounter - Kristina Hatfield OSA - 02/03/2024 10:22 AM EDT Pt is over due for his cardio f/u Please call pt to schedule documented in this encounter Plan of Treatment Upcoming Encounters Date Type Department Care Team (Late st Contact Info) Description 03/27/2024 3:00 PM EDT Office Visit Cardiology, [facility] [address] [place] [address] Yassine Mock PA-C [address] [place] [address] 07/20/2024 1:15 PM EST Office Visit Hematology/Oncology [facility] [address] [facility] [place] [phone] Jorgito Moncada MD [address] [facility] [place] [address] 08/08/2024 1:00 PM EST Office Visit Family Practice [facility] [address] [place] [address] Sunny Hatfield DO [address] [place] [address] Health Maintenance Due Date Last Done Comments [...] this encounter Medical Devices Implanted Type Area Core Dipper Device Identifier Shelf Expiration Date Model / Serial / Lot Stent Viabahn [id number] 135cm - [id number] Implanted:06/19 by Francisca Pride MD at OR [facility] (Quantity not on file) [employer] [id number] 12/06/2021 [id number] / [id number] / [id number] Graft Stent Viab 7mmx7.5cm - [id number] Implanted:06/19 by Francisca Pride MD at OR [facility] (Quantity not on file) [employer] [id number] 01/26/2022 [id number] / [id number] / [id number] documented as of this encounter Advance Directives Documents on File Type Date Recorded Patient Warp Scouring Vat Tender Expl anation Advance Directives and Living Will 03/27/2014 LIVING WILL Power of Tool Planner 03/27/2014 POWER OF A TTORNEY DURABLE HEALTH CARE POA * Full Code (Latest Code Status on File) Date Activated Date Inactivated Comments 07/07/2019 11:09 AM 07/08/2019 2:52 PM This orde r reflects the patients wishes and were consensually agreed upon. Care Teams Baseball Sewer Hand Relationship Specialty Start Date End Date Sunny Hatfield DO [address] [place] [address] PCP - General Family Medicine 08/05/23 documented as of this encounter
--- OUTSIDE RECORDS SUMMARY | 2024-07-09 10:26 | External Medical Summary | Summary of Care ---
Author Name Unknown Organization [facility] Address [address] [facility] [place] [address] Phone [phone] Care Team Providers Care Client Analyst Name Role Phone Sunny Hatfieldnoemy Primary Care Provider Reason for Referral * Evaluate & Treat - Unlimited Visits (Within 3 days (urgent)) - Authorized Specialty Diagnoses / Procedures Referred By Von lopez Referred To Contact Nephrology Diagnoses Stage 4 chronic kidney disease (HCC) Yany Gallardo CRNP [address] [place] [address] Referral ID Status Reason Start Date Expiration Date Visits Requested Visits Authorized [id number] Authorized Specialty Services Required 02/21/[phone] Question Answer Referral Priority Within 3 days (urgent) Where should this appointment be scheduled? [facility] What condition is this patient being seen for? Chronic kidney disease Reason for Visit * Reason Onset Date Comments Referral 02/21/2024 Encounter Details Date Type Department Care Team (Late st Contact Info) Description 02/21/2024 Telephone Family Practice [facility] [address] [place] [address] Yany Gallardo CRNP [address] [place] [address] Referral Allergies Active Allergy Reactions Criticality Noted [...] encounter Miscellaneous Notes * Telephone Encounter - Elida Lopez OSA [...] 02/24/2024 12:00 PM EDT Office Visit Otolaryngology [facility] [address] [place] [address] Isaiah Rodríguez, [address] [place] [address] 03/27/2024 3:00 PM EDT Office Visit Cardiology, [facility] [address] [place] [address] Yassine Mock PAAnais [address] [place] [address] 07/20/2024 1:15 PM EST Office Visit Hematology/Oncology [facility] [address] [place] [phone] Jorgito Moncada MD [address] [place] [address] 08/08/2024 1:00 PM EST Office Visit Family Practice [facility] [address] [place] [address] Sunny Hatfield, DO [address] [place] [address] Scheduled Orders Name Type Priority Associated Diagnoses [...] this encounter Medical Devices Implanted Type Area Agronomy Research Manager Device Identifier Shelf Expiration Date Model / Serial / Lot Stent Viabahn [id number] 135cm - [id number] Implanted:06/19 by Francisca Pride MD at OR [facility] [place] (Quantity not on file) [employer] [id number] 12/06/2021 [id number] / [id number] / [id number] Graft Stent Viab 7mmx7.5cm - [id number] Implanted:06/19 by Francisca Pride MD at OR [facility] [place] (Quantity not on file) [employer] [id number] 01/26/2022 [id number] / [id number] / [id number] documented as of this encounter Visit Diagnoses Diagnosis Stage 4 chronic kidney disease (HCC)- Primary documented in this encounter Advance Directives Documents on File Type Date Recorded Patient Official Court Reporter Expl anation Advance Directives and Living Will 03/27/2014 LIVING WILL Power of Policy Issue Clerk 03/27/2014 POWER OF A TTORNEY DURABLE HEALTH CARE POA * Full Code (Latest Code Status on File) Date Activated Date Inactivated Comments 07/07/2019 11:09 AM 07/08/2019 2:52 PM This orde r reflects the patients wishes and were consensually agreed upon. Care Teams Client Analyst Relationship Specialty Start Date End Date Sunny Hatfield DO [address] [place] [address] PCP - General Family Medicine 08/05/23 documented as of this encounter
--- OUTSIDE RECORDS SUMMARY | 2024-07-09 10:26 | External Medical Summary ---
Author Name Unknown Address Unknown Organization K01:[facility] [address] [place] [address] Laboratory Report Ordering Provider Test Date Status MAYTE PACHECO 01/18/2024 09:09:47 Final Observation Date Value Abnormality Reference (Units ) Status LDH 01/18/2024 09:09:47 151 <=250 (U/L ) Final Performing Location [facility] [address] [place] [address]
--- OUTSIDE RECORDS SUMMARY | 2024-07-09 10:26 | External Medical Summary | Summary of Care ---
Author Name Unknown Organization [facility] Address [address] [facility] [place] [address] Phone [phone] Care Team Providers Care Basket Weaver Name Role Phone Sunny Hatfield Sharon Primary Care Provider Reason for Visit * Reason Comments Outpatient Testing Encounter Details Date Type Department Care Team (Late st Contact Info) Description 01/18/2024 9:20 AM EDT Laboratory Laboratory [facility] [place] [address] [place] [phone] [place], [facility] [address] [place] [address] Arrived Allergies Active Allergy Reactions Criticality Noted Date [...] Description 02/03/2024 10:00 AM EDT Office Visit [facility] [address] [place] [address] Yany Gallardo CRNP [address] [place] [address] 07/20/2024 1:15 PM EST Office Visit Hematology/Oncology [facility] [place] [address] [place] [phone] Jorgito Moncada MD [address] [place] [address] 08/08/2024 1:00 PM EST Office Visit Family [facility] [address] [place] [address] Sunny Hatfield, [address] [place] [address] Health Maintenance Due Date Last Done Comments [...] 01/18/2024 Zoster Vaccines Completed 08/08/2020, 05/19, 06/18/2013 GARDASIL-HPV IMMUNIZATION SERIES Aged Out No longer eligible based on patient's age to complete this topic Hepatitis B Aged Out No longer eligi ble based on patient's age to complete this topic MENINGOCOCCAL (MENACTRA/MENVEO) Aged Out No longer eligible based on patient's age to complete this topic documented as of this encounter Medical Devices Implanted Type Area Airdrop Systems Technician Device Identifier Shelf Expiration Date Model / Serial / Lot Stent Viabahn [id number] 135cm - [id number] Implanted:06/19 by Francisca Pride MD at [place] [facility] [place] (Quantity not on file) [employer] [id number] 12/06/2021 [id number] / [id number] / [id number] Graft Stent Viab 7mmx7.5cm - [id number] Implanted:06/19 by Francisca Pride MD at [place] [facility] [place] (Quantity not on file) [employer] [id number] 01/26/2022 [id number] / [id number] / [id number] documented as of this encounter Advance Directives Documents on File Type Date Recorded Patient Saw Sharpener Expl anation Advance Directives and Living Will 03/27/2014 LIVING WILL Power of Weigher Alloy 03/27/2014 POWER OF A TTORNEY DURABLE HEALTH CARE POA * Full Code (Latest Code Status on File) Date Activated Date Inactivated Comments 07/07/2019 11:09 AM 07/08/2019 2:52 PM This orde r reflects the patients wishes and were consensually agreed upon. Care Teams Basket Weaver Relationship Specialty Start Date End Date Sunny Hatfield DO [address] [place] [address] PCP - General Family Medicine 08/05/23 documented as of this encounter
--- OUTSIDE RECORDS SUMMARY | 2024-07-09 10:26 | External Medical Summary | Summary of Care ---
Author Name Unknown Organization [facility] Address [address] [facility] [place] [address] Phone [phone] Care Team Providers Care Health Record Technician Name Role Phone Vidal Hatfieldvor Sharon Primary Care Provider Reason for Visit * Reason Onset Date Comments Appointment 02/03/2024 Encounter Details Date Type Department Care Team (Late st Contact Info) Description 02/03/2024 Telephone Family Practice [facility] [address] [place] [address] Yany Gallardo CRNP [address] [facility] [place] [address] Appointment Allergies Active Allergy Reactions [...] 2024 Appointment Provider:Yassine Mock PA-C in CARDIOLOGY [facility] * Telephone Encounter - Kristina Hatfield OSA - 02/03/2024 10:22 AM EDT Pt is over due for his cardio f/u Please call pt to schedule documented in this encounter Plan of Treatment Upcoming Encounters Date Type Department Care Team (Late st Contact Info) Description 03/27/2024 3:00 PM EDT Office Visit Cardiology, [facility] [address] [place] [address] Yassine Mock PA-C [address] [place] [address] 07/20/2024 1:15 PM EST Office Visit Hematology/Oncology [facility] [address] [facility] [place] [phone] Jorgito Moncada MD [address] [facility] [place] [address] 08/08/2024 1:00 PM EST Office Visit Family Practice [facility] [address] [place] [address] Sunny Hatfield DO [address] [place] [address] Health Maintenance Due Date Last Done Comments [...] this encounter Medical Devices Implanted Type Area Public Area Supervisor Device Identifier Shelf Expiration Date Model / Serial / Lot Stent Viabahn [id number] 135cm - [id number] Implanted:06/19 by Francisca Pride MD at OR [facility] (Quantity not on file) [employer] [id number] 12/06/2021 [id number] / [id number] / [id number] Graft Stent Viab 7mmx7.5cm - [id number] Implanted:06/19 by Francisca Pride MD at OR [facility] (Quantity not on file) [employer] [id number] 01/26/2022 [id number] / [id number] / [id number] documented as of this encounter Advance Directives Documents on File Type Date Recorded Patient Territory Sales Consultant Expl anation Advance Directives and Living Will 03/27/2014 LIVING WILL Power of Computer Operations Supervisor 03/27/2014 POWER OF A TTORNEY DURABLE HEALTH CARE POA * Full Code (Latest Code Status on File) Date Activated Date Inactivated Comments 07/07/2019 11:09 AM 07/08/2019 2:52 PM This orde r reflects the patients wishes and were consensually agreed upon. Care Teams Health Record Technician Relationship Specialty Start Date End Date Sunny Hatfield DO [address] [place] [address] PCP - General Family Medicine 08/05/23 documented as of this encounter
--- OUTSIDE RECORDS SUMMARY | 2024-07-09 10:26 | External Medical Summary | Summary of Care ---
Author Name Unknown Organization [facility] Address [address] [facility] [place] [address] Phone [phone] Care Team Providers Care Slabber Name Role Phone Sunny Hatfield Primary Care Provider Reason for Visit * Reason Onset Date Comments Appointment 02/22/2024 Encounter Details Date Type Department Care Team (Late st Contact Info) Description 02/22/2024 Telephone Otolaryngology [facility] [address] [place] [address] Isaiah Rodríguez DO [address] [place] [address] Appointment Allergies Active Allergy Reactions Criticality Noted [...] encounter Miscellaneous Notes * Telephone Encounter - Emperatriz Buitrago LPN - 02/22/2024 9:[address] Rodríguez please see if he can come in 02/23 at [address] an [address] Rodríguez will be in the OR and may have to wait for a little bit. documented in this encounter Plan of Treatment Upcoming Encounters Date Type Department Care Team (Late st Contact Info) Description 02/24/2024 12:00 PM EDT Office Visit Otolaryngology [facility] [address] [place] [address] Isaiah Rodríguez, DO [address] [place] [address] 03/27/2024 3:00 PM EDT Office Visit Cardiology, [facility] [address] [place] [address] Yassine Mock, PA-C [address] [place] [address] 07/20/2024 1:15 PM EST Office Visit Hematology/Oncology [facility] [address] [facility] [place] [phone] Jorgito Moncada MD [address] [facility] [place] [address] 08/08/2024 1:00 PM EST Office Visit Family Practice [facility] [address] [place] [address] Sunny Hatfield, DO [address] [place] [address] Health Maintenance Due Date Last Done Comments [...] this encounter Medical Devices Implanted Type Area Product Lister Device Identifier Shelf Expiration Date Model / Serial / Lot Stent Viabahn [id number] 135cm - [id number] Implanted:06/19 by Francisca Pride MD at [place] [facility] [place] (Quantity not on file) [employer] [id number] 12/06/2021 [id number] / [id number] / [id number] Graft Stent Viab 7mmx7.5cm - [id number] Implanted:06/19 by Francisca Pride MD at [place] [facility] [place] (Quantity not on file) [employer] [id number] 01/26/2022 [id number] / [id number] / [id number] documented as of this encounter Advance Directives Documents on File Type Date Recorded Patient Provider Relations Consultant Expl anation Advance Directives and Living Will 03/27/2014 LIVING WILL Power of Umbrella Repairer 03/27/2014 POWER OF A TTORNEY DURABLE HEALTH CARE POA * Full Code (Latest Code Status on File) Date Activated Date Inactivated Comments 07/07/2019 11:09 AM 07/08/2019 2:52 PM This orde r reflects the patients wishes and were consensually agreed upon. Care Teams Slabber Relationship Specialty Start Date End Date Sunny Hatfield DO [address] [place] [address] PCP - General Family Medicine 08/05/23 documented as of this encounter
--- OUTSIDE RECORDS SUMMARY | 2024-07-09 10:26 | External Medical Summary ---
Author Name Unknown Address Unknown Organization K0G:[facility] [place] [facility] [address] - [address] [place] [address] Laboratory Report Ordering Provider Test Date Status CORIE MARTINEZ 02/21/2024 10:00:28 Final Observation Date Value Abnormality Reference (Units ) Status BUN 02/21/2024 10:00:28 42 Above high normal 6-20 (mg/dL) Final Creatinine 02/21/2024 10:00:28 2.6 Above high normal 0.6-1.2 (mg/dL) Final Glomerular filtration rate/1.73 sq M.predicted [Volume Rate/Area] in Serum, Plasma or Blood by Creatinine-based formula (CKD-EPI) 02/21/2024 10:00:28 23 Below low normal >=60 (mL/min) Final eGFR is calculated based on the CKD-EPI 2020 equation. Sodium 02/21/2024 10:00:28 140 135-146 (m mol/L) Final Potassium 02/21/2024 10:00:28 5.1 3.5-5.1 (m mol/L) Final Cl 02/21/2024 10:00:28 106 98-107 (mm ol/L) Final CO2 02/21/2024 10:00:28 22 22-32 (mmo l/L) Final Anion gap 02/21/2024 10:00:28 12 7-15 (mmol /L) Final Glucose 02/21/2024 10:00:28 92 70-120 (mg /dL) Final Albumin 02/21/2024 10:00:28 4.2 3.8-5.0 (g /dL) Final AST (Aspartate aminotransferase) 02/21/2024 10:00:28 9 Below low normal 10-50 (U/L) Final Alk Phos 02/21/2024 10:00:28 61 35-130 (U/ L) Final Bilirubin, Total 02/21/2024 10:00:28 0.4 <=1 .2 (mg/dL) Final Calcium 02/21/2024 10:00:28 9.2 8.4-10.2 ( mg/dL) Final Protein 02/21/2024 10:00:28 6.4 6.0-8.3 (g /dL) Final ALT (Alanine aminotransferase) 02/21/2024 10:00:28 7 Below low normal 10-50 (U/L) Final Performing Location [facility] [address] [facility] [address]
--- OUTSIDE RECORDS SUMMARY | 2024-07-09 10:27 | External Medical Summary | Summary of Care ---
Author Name Unknown Organization [facility] Address [address] [place] [address] Phone [phone] Care Team Providers Care Line Runner Name Role Phone Sunny Hatfield Primary Care Provider Reason for Visit * Reason Comments Follow Up Encounter Details Date Type Department Care Team (Late st Contact Info) Description 01/12/2024 11:30 AM EDT Office Visit Vascular Surgery, [facility] [address] [facility] [place] [address] Hieu Colbert MD [address] [place] [address] Peripheral vascular disease (HCC)*; Asymptomatic [...] old male. Referring Physician: Bandar Carnes, Lead Cargoman, Dr. Mancilla, [facility]. Chief Complaint: Annual surveillance of PAD and [...] PAD and carotid disease. Previously followed by [facility], until his vascular surgeon left the system and he transferred care to [facility] in 2019. PAD: S/P bilateral common iliac artery stenting by Dr. Pham at [facility] 06/09/2011 for low back and hip discomfort with ambulation. Post operatively he states that his symptoms were relieved. He developed recurrence in 2018 and eventually underwent abdominal aortogram, left lower extremity angiogram, percutaneous ultrasound guided left brachial access, balloon angioplasty left NAN/EIA with 5 then 7 x 200 mm Trafford balloon, Left NAN stent placement with 7 x 79 mm VBX, postdilated with 10 x 80 mm Trafford balloon, Left EIA stent placement with 7 x 75 mm Viabahn post-dilated with 7 x 200mm Trafford balloon on 07/07/[address] Pride. performed [...] performed by Francisca Pride MD [place] [facility] CARDIAC CATH SCANNED RESULT 09/28/2003 2 Cypher drug eluding cardiac stents COLONOSCOPY, DIAGNOSTIC (RECTUM) 04/02/2017 inflammation on bx, diverticulosis/COLONOSCOPY FLEXIBLE PROXIMAL DIAGNOSTIC performed by Marika Olivarez DO at ENDOSCOPY [facility] EGD, FLEXIBLE, DIAGNOSTIC 07/01/2012 UPPER GI ENDOSCOPY DIAGNOSTIC performed by Marika Olivarez DO at [facility] EGD, FLEXIBLE, DIAGNOSTIC 08/24/2013 ESOPHAGOGASTRODUODENOSCOPY (EGD), FLEXIBLE, TRANSORAL, DIAGNOSTIC performed by Marika Olivarez DO at [facility] EGD, FLEXIBLE, DIAGNOSTIC 12/21/2014 mild gastritis, HH/ESOPHAGOGASTRODUODENOSCOPY (EGD), FLEXIBLE, TRANSORAL, DIAGNOSTIC performed by Marika Olivarez DO at ENDOSCOPY [facility] EGD, FLEXIBLE, DIAGNOSTIC 06/25/2016 HH, normal/ESOPHAGOGASTRODUODENOSCOPY (EGD), FLEXIBLE, TRANSORAL, DIAGNOSTIC performed by Marika Olivarez DO at ENDOSCOPY [facility] EGD, FLEXIBLE, DIAGNOSTIC 04/02/2017 inflammation/ESOPHAGOGASTRODUODENOSCOPY (EGD), FLEXIBLE, TRANSORAL, DIAGNOSTIC performed by Marika Ellis DO at ENDOSCOPY [facility] EGD, FLEXIBLE, DIAGNOSTIC 09/19/2020 Abnormal esophageal motility, hiatal hernia / [facility] FEM/POP ARTERY REVASC W/ STENT+ANGIOPLASTY Left 07/07/2019 FEM/POP ARTERY REVASC W/ STENT+ANGIOPLASTY performed by Francisca Pride MD at [facility] INFORMATION Left 07/30/2010 cryoablation left kidney IR ARTERIOGRAM EXTREMITY UNILATERAL Left 07/07/2019 IMAGING SUPERVISION & INTERPRETATION EXTREMITY UNILATERAL performed by Francisca Pride MD at [facility] LUMBAR / SACRAL EPIDURAL, SINGLE LEVEL 10/27/2013 INJECTION TRANSFORAMINAL EPIDURAL LUMBAR OR SACRAL performed by Margarito Lyon DO at OR [facility] REMOVE CATARACT, INSERT LENS PROSTH OU-Dr. Juan SACROILIAC JOINT INJECT W/GUIDANCE 05/08/2019 INJECTION SACROILIAC JOINT performed by Margarito Lyon DO at OR [facility] SACROILIAC JOINT INJECT W/GUIDANCE 06/01/2019 INJECTION SACROILIAC JOINT performed by Margarito Lyon DO at OR [facility] SACROILIAC JOINT INJECT W/GUIDANCE 04/04/2020 INJECTION SACROILIAC JOINT performed by Margarito Lyon DO at OR [facility] SACROILIAC JOINT INJECT W/GUIDANCE 05/13/2020 INJECTION [...] CABG/PCIs, PCI (2 coronary stents 03/2019 at [facility]). Respiratory: denies shortness of breath, reports [...] 11/04/2022 BLE Art Duplex: RLE: EIA 48, PNEUMATIC TOOL REPAIRER 40, DFA 29, SFA 210/51/36/24, Pop 26, TPT 19. LLE: EIA 244, PNEUMATIC TOOL REPAIRER 333, DFA 108, SFA 157/54/54/38, Pop 40, TPT 31. 11/04/2022 [place] .56/.79. 10/07/20: DOMINGO: .56/1 10/07/20: Art duplex: R NAN UI, R EIA 61, R PNEUMATIC TOOL REPAIRER (plaque) 40, R SFA 78, Prox 114, mid 38, dist 41, pop 24, L NAN UI, L EIA 149, L PNEUMATIC TOOL REPAIRER 242, L DFA 206, Left SFA 338/79/69, [...] left .59 at rest/.64 with exercise 08/03/18 [facility] [place]: DOMINGO: .81/.71 08/03/18: [facility] Carotid duplex: CHAY 215/84, LICA 68/21. [...] with 5 then 7 x 200 mm Trafford balloon, Left NAN stent placement with 7 x 79 mm VBX, postdilated with 10 x 80 mm Trafford balloon, Left EIA stent placement with 7 x 75 mm Viabahn post-dilated with 7 x 200 mm Trafford balloon on 07/07/[address] Pride. perform ed for severe left leg claudication, and likely left foot ischemic rest pain. Rest pain and claudication resolved post op. S/P bilateral common iliac artery stenting by Dr. Pham at [facility] 06/09/2011 for low back and hip discomfort with ambulation; symptoms relieved post op and recurred 2017. (started on Plavix by [facility] Ananda) CAD with PCI . CABG x 3 1996. HTN. Dyslipidemia. Reformed smoker. CKD stage III/IV. H/O cryoablation of the L kidney for Renal CA [address] [facility]. Atrophic left kidney. H/O DDD/spinal stenosis. PLAN: [...] L kidney for Renal CA [address] [facility]. Atrophic left kidney. H/O DDD/spinal stenosis. I [...] MD Section of Vascular [place] [address] [phone] documented in this encounter Nursing Notes * Elena Murray CMA - 01/12/2024 11:02 AM EDT Reviewed the option of transferring scripts to [facility] pharmacy with patient and / or family. Elena Murray CMA documented in this encounter Plan of Treatment Upcoming Encounters Date Type Department Care Team (Late st Contact Info) Description 01/18/2024 8:45 AM EDT Office Visit Hematology/Oncology [facility] [address] [facility] [place] [phone] Jorgito Moncada MD [address] [place] [address] 02/03/2024 10:00 AM EDT Office Visit [facility] [address] [place] [phone] Yany Gallardo CRNP [address] [place] [address] 08/08/2024 1:00 PM EST Office Visit [facility] [address] [place] [address] Sunny Hatfield DO [address] [place] [address] Scheduled Orders Name Type Priority Associated Diagnoses Orde r Schedule VASC EEK ART DUP BILAT LE Medical Imaging Routine Peripheral vascular disease (HCC) Ordered: 01/12/2024 VASC ANKLE BRACHIAL INDICES WITHOUT PPG (PAD) Medical Imaging Routine Peripheral vascular disease (HCC) Ordered: 01/12/2024 [facility] DUPLEX CAROTID BILAT Medical Imaging Routine [...] this encounter Medical Devices Implanted Type Area Foundry Worker General Device Identifier Shelf Expiration Date Model / Serial / Lot Stent Viabahn [id number] 135cm - [id number] Implanted:06/19 by Francisca Pride MD at [facility] (Quantity not on file) [employer] [id number] 12/06/2021 [id number] / [id number] / [id number] Graft Stent Viab 7mmx7.5cm - [id number] Implanted:06/19 by Francisca Pride MD at [facility] (Quantity not on file) [employer] [id number] 01/26/2022 [id number] / [id number] / [id number] documented as of this encounter Visit Diagnoses [...] Documents on File Type Date Recorded Patient Land Lease Information Clerk Expl anation Advance Directives and Living Will 03/27/2014 LIVING WILL Power of Electrician [employer] 03/27/2014 POWER OF A [facility]UR[facility] POA * Full Code (Latest Code Status on File) Date Activated Date Inactivated Comments 07/07/2019 11:09 AM 07/08/2019 2:52 PM This orde r reflects the patients wishes and were consensually agreed upon. Care Teams Line Runner Relationship Specialty Start Date End Date Sunny Hatfield DO [address] [facility] [place] [address] PCP - General Family Medicine 08/05/23 documented as of this encounter
--- NOTE | 2024-07-09 11:11 | Emergency Department Note ---
Impression & Plan Chest pain, Nausea & vomiting ED Provider Note NAME: MARIANA RBUSH AGE: 89 SEX: Male INFORMANT: Patient and daughter ED PROVIDER(S): Raimundo Longo MD CHIEF COMPLAINT: Chest pain PLAN: Disposition: Admitted Outpatient prescription management: none Referral: None MEDICAL DECISION MAKING: Patient presented because of chest pain. On initial evaluation he was pain- free. ECG did not show any acute ischemia. Chest x-ray revealed some findings concerning for CHF with effusions and increased lung markings bilaterally. Patient does not have any flulike symptoms. He was found to have an elevated cardiac troponin and slight increase in his creatinine from baseline, and a significant elevation of BNP. This was concerning for CHF. Patient was also very hypertensive. He was given Nitropaste, aspirin, and IV metoprolol as he did not take his oral metoprolol. Patient's blood pressure was still elevated and he was given IV hydralazine. Family was concerned about his taking aspirin on an empty stomach. I did give the patient a dose of IV Pepcid and a dose of IV Lasix. The patient will need further management in the hospital. Did discuss the case with the [facility] hospitalist service. Patient was evaluated in the ER and admitted for further management. Patient did have another episode of chest pain and repeat ECG did not show any acute changes. He was given sublingual nitroglycerin. Repeat cardiac troponin was unchanged. I refer you to the EMR for further details. Care/management discussed with: restaurant hourly manager, hospitalist Level of care consideration(s): After review of the information above and other included data, I feel the patient requires escalation of care to admission Triage Nursing notes: reviewed and agree them. Vital Signs: reviewed and remarkable for hypertension Additional History obtained from: Patient's daughter supporting the history over the last several days as well as his cardiac history. Patient has had issues with his blood pressure over the recent office visits. Daughter notes no history of CHF. Chronic Medical/Social Conditions affecting care: CAD, hypertension Prior/ Outside/ External records reviewed: none Differential Diagnosis: Cardiac ischemia, aortic dissection, pulmonary embolism, pneumothorax, pneumonia, pericarditis, myocarditis, esophageal rupture, GERD, cholecystitis, pancreatitis, musculoskeletal, as well as other pathologies. Diagnostics, independently interpreted by me: ECG: Twelve-lead ECG reveals a normal sinus rhythm at 86 bpm. Rightward axis. Prominent T waves anteriorly. No ST depression. No PVCs or PACs. Repeat ECG reveals a normal sinus rhythm at [address] elevation. No significant change from prior. Cardiac Monitoring: Cardiac monitoring ordered by me: The patient was placed on continuous cardiac monitoring and observed. It revealed a normal sinus rhythm at 90 beats per minute with occasional PVC. Medical decision rules: Patient is high risk by HEART SCORE. Imaging studies: Chest x-ray reveals mild cardiomegaly and pleural effusions. Mild increased lung markings bilaterally concerning for developing CHF HPI: 89 year old Male arrives for evaluation of chest pain. This started last night and is current resolved. The patient also notes the following associated symptoms, nausea, vomiting, SOB, weakness, pedal edema. The patient has taken nitro x 4 for relieving factors. Current pain is rated as 0/10. Had mild lower abd pain 2 days ago but that resolved. Pt denies LOC, headache, fevers, chills, diaphoresis, visual changes, neck pain, back pain, melena, hematochezia, new urinary symptoms, numbness, lymphadenopathy, rash, or other complaints. . PAST MEDICAL HISTORY: See Below, CAD, mantle cell, PAD, AL, Cardiac Arrest PAST SURGICAL HISTORY: See Below, CABG SOCIAL HISTORY: See Below, former smoker HOME MEDICATIONS: See Below ALLERGIES: See Below VITALS: See Below PHYSICAL EXAMINATION: GENERAL: Awake, tired-appearing, in no distress HENT: Normocephalic, atraumatic. Oropharynx unremarkable except for dry mucous membranes. EYES: Normal conjunctiva. Sclera non-icteric. NECK: Inspection normal. Non-tender. Supple. No nuchal rigidity. FROM. No masses. RESPIRATORY: Clear to auscultation. No wheezes. No rales. Normal respiratory effort. CARDIAC: Normal rate. Normal rhythm. No murmurs. No rubs. Extremities warm and well perfused. Pulses equal. No JVD. GI: Soft, non-distended. No tenderness to palpation. No rebound or guarding. No masses. RECTAL: Deferred. MUSCULOSKELETAL: Atraumatic. Chest examination reveals no tenderness. The back is kyphotic on inspection without obvious abnormality. There is no CVA tenderness to palpation. No joint edema. LOWER EXTREMITIES: Calves are equal size bilaterally and non-tender. 2+ pedal edema. No discoloration. NEURO: Normal sensorium. No sensory or motor deficits noted. SKIN: No rash or jaundice noted. PROCEDURES: none CRITICAL CARE: none OBSERVATION NOTE: none Past Med/Surg History Problem List (Updated 07/09/24 @ 13:00 by Maria Victoria Allen MD) CKD (chronic kidney disease) CHF (congestive heart failure) Poorly-controlled hypertension Nausea & vomiting (Acute) Chest pain (Acute) Encounter for pre-operative examination Medical History Belching continuous x several hours after eating/drinking BPH (benign prostatic hyperplasia) CAD (coronary artery disease) Follows with Dr. Lai/Dr. 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 History of TIA (transient ischemic attack) 2018 HTN (hypertension) Hyperlipemia Slow to wake up after anesthesia Vascular disease, peripheral Surgical History History of cardiac catheterization most recent 03/2019 at [facility] - 2 stents placed; mult caths at [facility]; mult stents (unable to recall specifics) History of colonoscopy History of coronary artery bypass graft x 3 1996 History of esophagogastroduodenoscopy (EGD) History of heart artery stent "quite a few" (2 placed 03/2019 and mult prior to) History of prior ablation treatment History of tooth extraction History of vascular surgery stent LLE Family History Other No family history of adverse response to anesthesia Social History Smoking Status: Former smoker Second Hand Exposure: No; Do You Dip or Chew Tobacco: No; Hx Alcohol Use: No Hx Substance Use: No Preferred Language: Cape Verdean Communication Ability: Effective Securities And Real Estate Director Required: No Beliefs That Will Affect Care: None Current Living Situation: Spouse Feels Safe at Home: Yes Safety Concerns: Feels Safe At This Time Assistive Devices: Denture - Upper, Denture - Lower and Hearing Aid - Bilateral Allergies Allergies Allergy/AdvReac Type Severity Reaction Status Date / Time ciprofloxacin [From Cipro] AdvReac Vomiting Verified 09/19/20 10:27 Iodinated Contrast Media AdvReac Unknown Verified 09/19/20 10:27 Home Meds Home Medications Medication Instructions Recorded Confirmed acetaminophen 325 mg tablet 325 mg PO QID PRN Pain 09/16/20 07/09/24 (Tylenol) albuterol 90 mcg/actuation aerosol 90 mcg inhalation UD PRN sob 09/16/20 07/09/24 inhaler amlodipine 5 mg tablet (Norvasc) 5 mg PO BID 09/16/20 07/09/24 aspirin 81 mg tablet,delayed 81 mg PO DAILY 09/16/20 07/09/24 release clopidogrel 75 mg tablet (Plavix) 75 mg PO QAM 09/16/20 07/09/24 finasteride 5 mg tablet 5 mg PO QAM 09/16/20 07/09/24 fluticasone 250 mcg-salmeterol 50 1 inh inhalation BID 09/16/20 07/09/24 mcg/dose blistr powdr for inhalation (Advair Diskus) lisinopril 5 mg tablet 5 mg PO QAM 09/16/20 07/09/24 metoprolol succinate 25 mg 25 mg PO BID 09/16/20 07/09/24 tablet,extended release 24 hr nitroglycerin 0.4 mg sublingual 0.4 mg sublingual UD PRN Chest Pain 09/16/20 07/09/24 tablet (Nitrostat) pantoprazole 40 mg tablet,delayed 40 mg PO QAM 09/16/20 07/09/24 release (Protonix) rosuvastatin 20 mg tablet (Crestor) 20 mg PO QPM 09/16/20 07/09/24 tamsulosin 0.4 mg capsule 0.4 mg PO QPM 09/16/20 07/09/24 hydralazine 10 mg tablet 10 mg PO TID 07/09/24 07/09/24 isosorbide dinitrate 5 mg tablet 5 mg PO QID 07/09/24 07/09/24 Results & Data (ED) Vital Signs Vital Signs - 24 hr 07/09/24 10:25 07/09/24 10:38 07/09/24 10:52 Temperature 36.4 C Temperature Source Oral Pulse Rate 90 Pulse Rate [Apical] Pulse Rate from SpO2 Sensor Respiratory Rate 12 Respiratory Effort / Characteristics Non-Labored Spontaneous Respiratory Depth Normal Respiratory Pattern Regular Blood Pressure 219/109 H Blood Pressure [Left Arm] Blood Pressure Mean 145 Blood Pressure Mean [Left Arm] Pulse Oximetry 92 Oxygen Delivery Method Room Air Room Air Room Air Oxygen Flow Rate Sepsis Recent Fever Within 48 Hours No Sepsis New/Unexplained Change in Mental Status No Sepsis Action Taken by Nursing No Action Required 07/09/24 11:08 07/09/24 11:15 07/09/24 11:45 Temperature Temperature Source Pulse Rate 85 77 Pulse Rate [Apical] Pulse Rate from SpO2 Sensor 85 76 Respiratory Rate 22 18 Respiratory Effort / Characteristics Non-Labored Spontaneous Respiratory Depth Normal Respiratory Pattern Blood Pressure 218/110 H 208/100 H Blood Pressure [Left Arm] Blood Pressure Mean 146 136 Blood Pressure Mean [Left Arm] Pulse Oximetry 93 94 Oxygen Delivery Method Room Air Room Air Oxygen Flow Rate Sepsis Recent Fever Within 48 Hours Sepsis New/Unexplained Change in Mental Status Sepsis Action Taken by Nursing 07/09/24 12:00 07/09/24 12:15 07/09/24 12:15 Temperature Temperature Source Pulse Rate 74 79 Pulse Rate [Apical] 79 Pulse Rate from SpO2 Sensor 74 Respiratory Rate 17 30 H Respiratory Effort / Characteristics Non-Labored Spontaneous Respiratory Depth Normal Respiratory Pattern Regular Blood Pressure 199/106 H Blood Pressure [Left Arm] 204/97 H Blood Pressure Mean 137 Blood Pressure Mean [Left Arm] 132 Pulse Oximetry 94 94 Oxygen Delivery Method Nasal Cannula Oxygen Flow Rate 2 Sepsis Recent Fever Within 48 Hours Sepsis New/Unexplained Change in Mental Status Sepsis Action Taken by Nursing 07/09/24 12:15 07/09/24 12:24 07/09/24 12:30 Temperature Temperature Source Pulse Rate 78 80 Pulse Rate [Apical] Pulse Rate from SpO2 Sensor 78 Respiratory Rate 19 Respiratory Effort / Characteristics Respiratory Depth Respiratory Pattern Blood Pressure 204/97 H 204/97 H 225/118 H Blood Pressure [Left Arm] Blood Pressure Mean 132 138 Blood Pressure Mean [Left Arm] Pulse Oximetry 94 Oxygen Delivery Method Nasal Cannula Oxygen Flow Rate 2 Sepsis Recent Fever Within 48 Hours Sepsis New/Unexplained Change in Mental Status Sepsis Action Taken by Nursing Laboratory Data 07/09/24 10:46 07/09/24 11:40 Lab Results 07/09/24 07/09/24 Range/Units 10:46 11:40 WBC 7.28 (4.8-10.8) K/ul RBC 3.94 L (4.70-6.10) M/uL Hgb 12.1 L (14.0-18.0) g/dl Hct 36.1 L (42.0-52.0) % MCV 91.6 (80.0-100.0) fL MCH 30.7 (25.0-34.0) pg MCHC 33.5 (32.0-36.0) g/dL RDW Std Deviation 49.9 H (36.4-46.3) fL RDW Coeff of Jessica 14.8 H (11.5-14.5) % Plt Count 158 (130-400) K/uL MPV 10.8 (9.4-12.4) fL Immature Gran % (Auto) 0.7 % Neut % (Auto) 80.3 % Lymph % (Auto) 8.4 % [place] % (Auto) 9.3 % Eos % (Auto) 0.8 % Baso % (Auto) 0.5 % Neut # (Auto) 5.84 (1.40-6.50) K/uL Lymph # (Auto) 0.61 L (1.20-3.40) K/uL [place] # (Auto) 0.68 H (0.11-0.59) K/uL Eos # (Auto) 0.06 (0.00-0.50) K/uL Baso # (Auto) 0.04 (0.00-0.20) K/uL Immature Gran # (Auto) 0.05 (0.01-0.20) K/uL Sodium 140 (136-145) mmol/L Potassium TNP 5.2 H Chloride 112 H (98-107) mmol/L Carbon Dioxide 20 L (21-32) mmol/L Anion Gap 8 (3-11) BUN 58 H (6-23) mg/dl Creatinine 2.88 H (0.6-1.4) mg/dl Est Cr Clr Drug Dosing 16.0 ml/min eGFR 20.34 BUN/Creatinine Ratio 20.1 H (10-20) Glucose 107 H (70-99(Fasting)) mg/dl Calcium 9.5 (8.6-10.3) mg/dl Total Bilirubin 0.6 (0.2-1.0) mg/dl AST TNP 10 L ALT 8 (7-52) U/L Alkaline Phosphatase 41 (34-104) U/L Troponin I High Sens 52.6 H* (0-20) pg/ml B-Natriuretic Peptide 1418 H (0-100) pg/ml Total Protein 7.1 (6.0-8.3) gm/dl Albumin 4.3 (3.4-5.0) gm/dl Globulin 2.8 (2.5-4.0) gm/dl Albumin/Globulin Ratio 1.5 (0.9-2) Lipase 54 (11-82) U/L Administered Medications Heparin Sodium (Porcine) (Heparin Sod 5,000 Unit/0.5 Ml Vial) 5,000 units SQ Q8 GERALDINE Stop: 08/08/24 14:48 Last Admin: 07/09/24 15:27 Dose: 5,000 units Documented By: BHAVIN Isosorbide Dinitrate (Isosorbide Dinitrate 5 Mg Tab) 5 mg PO QID@0700,1000,1400,1700 [facility] Stop: 08/08/24 16:59 Last Admin: 07/09/24 17:57 Dose: 5 mg Documented By: BHAVIN Discontinued Medications Amlodipine Besylate (Amlodipine Besylate 5 Mg Tab) 5 mg PO NOW ONE Stop: 07/09/24 12:35 Last Admin: 07/09/24 13:04 Dose: 5 mg Documented By: EAGLE Aspirin (Aspirin Chew 324 Mg) 324 mg PO NOW STA Stop: 07/09/24 11:12 Last Admin: 07/09/24 12:02 Dose: 324 mg Documented By: EAGLE Furosemide (Furosemide Inj 20 Mg/2 Ml Vial) 20 mg IV ONE ONE Stop: 07/09/24 11:57 Last Admin: 07/09/24 12:25 Dose: 20 mg Documented By: EAGLE Furosemide (Furosemide Inj 20 Mg/2 Ml Vial) 20 mg IV ONE ONE Stop: 07/09/24 14:50 Last Admin: 07/09/24 15:28 Dose: 20 mg Documented By: BHAVIN Hydralazine HCl (Hydralazine Hcl 20 Mg/Ml Vial) 5 mg IV NOW ONE Stop: 07/09/24 11:57 Last Admin: 07/09/24 12:02 Dose: 5 mg Documented By: EAGLE Famotidine (Pepcid 20mg Iv Push) 20 mg in 5 mls @ 2.5 mls/min IV NOW STA Stop: 07/09/24 11:55 Last Admin: 07/09/24 11:59 Dose: 2.5 mls/min Documented By: Isosorbide Dinitrate (Isosorbide Dinitrate 5 Mg Tab) 5 mg PO ONCE ONE Stop: 07/09/24 12:35 Last Admin: 07/09/24 13:04 Dose: 5 mg Documented By: Metoprolol Tartrate (Metoprolol Tartrate 1 Mg/Ml Vial) 2.5 mg IV NOW STA Stop: 07/09/24 11:12 Last Admin: 07/09/24 11:24 Dose: 2.5 mg Documented By: Nitroglycerin (Nitroglycerin 2% Ointment 30gm Tube) 0.5 inch EXT NOW STA Stop: 07/09/24 11:12 Last Admin: 07/09/24 11:27 Dose: 0.5 inch Documented By: Nitroglycerin (Nitroglycerin Sl 0.4 Mg/Tab Tab) 0.4 mg SL NOW STA Stop: 07/09/24 13:48 Last Admin: 07/09/24 13:57 Dose: 0.4 mg Documented By: Ondansetron HCl (Ondansetron Inj 2 Mg/Ml 2 Ml Vial) 4 mg IV NOW STA Stop: 07/09/24 11:12 Last Admin: 07/09/24 11:23 Dose: 4 mg Documented By: Imaging Data Radiologist's Impression: Chest X-Ray 07/09/24 10:52 EXAM: Radiograph of the Chest 1 View INDICATION: Chest pain. TECHNIQUE: Frontal view of the chest. COMPARISON: No relevant prior studies available. FINDINGS: Lungs and pleural spaces: The lungs are hyperinflated. There are patchy parenchymal infiltrates in both lung bases. Probable trace pleural effusions noted bilaterally. No pneumothorax. Heart: Mildly enlarged cardiac shadow. Mediastinum: Normal contour. Bones/joints: No fracture, erosion or dislocation. Soft tissues: No abnormality noted. No radiopaque foreign body noted. Upper abdomen: No abnormality noted. IMPRESSION: Patchy bilateral lower lobe infiltrates concerning for pneumonia. Trace pleural effusions. ACT 112: Negative or not required by law. Electronically signed by Latricia White 07-09-2024 12:07 PM Discharge Plan Visit Data Chief Complaint: Chest Pain Stated Complaint: CHEST PAIN, SOB, NAUSEA, VOMITING, DEHYDRATION ED Provider: Raimundo Longo Discharge Problem: Chest pain, Nausea & vomiting Patient Disposition: Admitted As Inpatient Discharge Instructions Interventions: ED Discharge Assessment Last Done: 07/09/24 14:05
[2024-07-09 11:22] LABS: Basophils # (auto) 0.04 K/uL (0.00-0.20); Basophils % (auto) 0.5 %; Eosinophils # (auto) 0.06 K/uL (0.00-0.50); Eosinophils % (auto) 0.8 %; Hematocrit (blood only) 36.1 % (42.0-52.0); Hemoglobin 12.1 g/dl (14.0-18.0); Immature Granulocytes # (auto) 0.05 K/uL (0.01-0.20); Immature Granulocytes % (auto) 0.7 %; Lymphocytes # (auto) 0.61 K/uL (1.20-3.40); Lymphocytes % (auto) 8.4 %; Mean Corpuscular Hemoglobin 30.7 pg (25.0-34.0); Mean Corpuscular Hgb Conc 33.5 g/dL (32.0-36.0); Mean Corpuscular Volume 91.6 fL (80.0-100.0); Mean Platelet Volume 10.8 fL (9.4-12.4); Monocytes # (auto) 0.68 K/uL (0.11-0.59); Monocytes % (auto) 9.3 %; Neutrophils # (auto) 5.84 K/uL (1.40-6.50); Neutrophils % (auto) 80.3 %; Platelet Count 158 K/uL (130-400); RDW Coefficient of Variation 14.8 % (11.5-14.5); RDW Standard Deviation 49.9 fL (36.4-46.3); Red Blood Count 3.94 M/uL (4.70-6.10); White Blood Count 7.28 K/ul (4.8-10.8)
[2024-07-09] MEDS: ONDANSETRON INJ 2 MG/ML 2 ML VIAL IV STA (11:23)
[2024-07-09] MEDS: METOPROLOL TARTRATE 1 MG/ML VIAL IV STA (11:24)
[2024-07-09] MEDS: NITROGLYCERIN 2% OINTMENT 30GM TUBE EXT STA (11:27)
[2024-07-09 11:29] LABS: Alanine Aminotransferase 8 U/L (7-52); Albumin Globulin Ratio 1.5 (0.9-2); Albumin Level 4.3 gm/dl (3.4-5.0); Alkaline Phosphatase 41 U/L (34-104); Anion Gap 8 (3-11); BUN Creatinine Ratio 20.1 (10-20); Bilirubin,Total 0.6 mg/dl (0.2-1.0); Blood Urea Nitrogen 58 mg/dl (6-23); Calcium 9.5 mg/dl (8.6-10.3); Carbon Dioxide 20 mmol/L (21-32); Chloride 112 mmol/L (98-107); Globulin 2.8 gm/dl (2.5-4.0); Glucose 107 mg/dl (70-99(Fasting)); Lipase 54 U/L (11-82); Sodium 140 mmol/L (136-145); Total Protein 7.1 gm/dl (6.0-8.3)
[2024-07-09 11:36] LABS: Troponin I High Sensitivity 52.6 pg/ml (0-20)
[2024-07-09] MEDS: FAMOTIDINE 20MG IV PUSH 20 MG/5 ML SYR IV STA (11:59)
[2024-07-09] MEDS: hydrALAZINE HCL 20 MG/ML VIAL IV ONE (12:02)
[2024-07-09] MEDS: ASPIRIN CHEW 324 MG PO STA (12:02)
--- NOTE | 2024-07-09 12:09 | XRay Report ---
EXAM: Radiograph of the Chest 1 View INDICATION: Chest pain. TECHNIQUE: Frontal view of the chest. COMPARISON: No relevant prior studies available. FINDINGS: Lungs and pleural spaces: The lungs are hyperinflated. There are patchy parenchymal infiltrates in both lung bases. Probable trace pleural effusions noted bilaterally. No pneumothorax. Heart: Mildly enlarged cardiac shadow. Mediastinum: Normal contour. Bones/joints: No fracture, erosion or dislocation. Soft tissues: No abnormality noted. No radiopaque foreign body noted. Upper abdomen: No abnormality noted. IMPRESSION: Patchy bilateral lower lobe infiltrates concerning for pneumonia. Trace pleural effusions. ACT 112: Negative or not required by law. Electronically signed by Latricia White 07-09-2024 12:07 PM
[2024-07-09 12:18] LABS: Potassium 5.2 mmol/L (3.5-5.1)
[2024-07-09] MEDS: FUROSEMIDE INJ 20 MG/2 ML VIAL IV ONE ×2 (12:25→15:28)
--- NOTE | 2024-07-09 12:34 | History & Physical Report ---
Date of Service July 09, 2024 Assessment & Plan (1) Chest pain: (2) CHF (congestive heart failure): (3) Poorly-controlled hypertension: Plan: 89-year-old man with history of CAD status post multiple stents and CABG, PAD status post bilateral common iliac stents, TIA, bilateral carotid stenosis, CKD 4, status post left kidney cryoablation, COPD, GERD and other medical problems who presents with chest pain since last night Exam notable for pedal edema Labs notable for normal WBC, BNP 1418, Trop 52, K 5.2, Cr 2.88 CXR noted patchy infiltrates Old TTE from 2009 in [facility] noted conc LVH EF 50% Lexiscan from 2014 noted mild generalized hypokinesis, EF 52% History and physical exam suggestive of congestive heart failure EKG did not show ST changes Trop is elevated at 52. Considering significant cardiovascular history, there is possibility of ACS or elevated trop may be due to demand ischemia Will trend trop for now IV lasix for now Daily weight, I/O Cardiology consult Low suspicion for pneumonia at this time. Hold off antibiotics Check resp PCR BP has been poorly controlled/difficult to control per daughter and review of Cardiology office note from 06/27/24 Got IV hydralazine and metoprolol in ER Patient reports no nausea at this time BP 204/97 Give home isordil 5mg and amlodipine 5mg now Resume home antihypertensives per Card note: Lisinopril 5mg daily, Amlodipine 5mg BID, hydralazine 10mg TID. Also resume home isordil 5mg QID, toprol XL 25mg BID Monitor BP (4) Nausea & vomiting: (5) History of TIA (transient ischemic attack): (6) Vascular disease, peripheral: (7) CAD (coronary artery disease): Plan: Continue home DAPT Continue medical management (8) History of kidney cancer: (9) CKD (chronic kidney disease): Plan: Cr is 2.88 Cr has been 2.1-2.9 per [facility] chart review this year Monitor Avoid nephrotoxins (10) GERD (gastroesophageal reflux disease): Plan: Continue home PPI (11) COPD (chronic obstructive pulmonary disease): Plan: Continue home inhalers Code status: Full Dietitian consult per daughter's request DVT ppx: Hep sq I spent a total of 75 minutes coordinating, documenting and providing care for this patient excluding time spent in performance of separately billed services History of Present Illness Chief Complaint: Chest pain Primary Care Provider: Sunny Hatfield DO 89-year-old man with history of CAD status post multiple stents and CABG, PAD status post bilateral common iliac stents, TIA, bilateral carotid stenosis, CKD 4, status post left kidney cryoablation, COPD, GERD and other medical problems who presents with chest pain. History provided by daughter at bedside who is a nurse smokehouse worker and patient. Patient developed chest pain last night and took some nitro which resolved chest pain intermittently. Chest pain is left-sided, referred to the back. Chest pain recurred this morning and patient took another 2 doses of nitro. Currently chest pain-free. Daughter reports that patient has been feeling ill for the past few days associated with nausea and vomiting (clear vomiting). Poor appetite and did not take his meds yesterday because of that. Patient has some shortness of breath especially with activity Daughter also noted leg swelling this AM which is new Denies any fever, congestion, sore throat Denies abd pain, diarrhea Denies dysuria, freq, urgency Former smoker Denies alcohol or illicit drug use Allergies Allergy/AdvReac Type Severity Reaction Status Date / Time ciprofloxacin [From Cipro] AdvReac Vomiting Verified 09/19/20 10:27 Iodinated Contrast Media AdvReac Unknown Verified 09/19/20 10:27 Home Medications Medication Instructions Recorded Confirmed Type acetaminophen 325 mg tablet 325 mg PO QID PRN Pain 09/16/20 07/09/24 History (Tylenol) albuterol 90 mcg/actuation aerosol 90 mcg inhalation UD PRN sob 09/16/20 07/09/24 History inhaler amlodipine 5 mg tablet (Norvasc) 5 mg PO BID 09/16/20 07/09/24 History aspirin 81 mg tablet,delayed 81 mg PO DAILY 09/16/20 07/09/24 History release clopidogrel 75 mg tablet (Plavix) 75 mg PO QAM 09/16/20 07/09/24 History finasteride 5 mg tablet 5 mg PO QAM 09/16/20 07/09/24 History fluticasone 250 mcg-salmeterol 50 1 inh inhalation BID 09/16/20 07/09/24 History mcg/dose blistr powdr for inhalation (Advair Diskus) lisinopril 5 mg tablet 5 mg PO QAM 09/16/20 07/09/24 History metoprolol succinate 25 mg 25 mg PO BID 09/16/20 07/09/24 History tablet,extended release 24 hr nitroglycerin 0.4 mg sublingual 0.4 mg sublingual UD PRN Chest Pain 09/16/20 07/09/24 History tablet (Nitrostat) pantoprazole 40 mg tablet,delayed 40 mg PO QAM 09/16/20 07/09/24 History release (Protonix) rosuvastatin 20 mg tablet (Crestor) 20 mg PO QPM 09/16/20 07/09/24 History tamsulosin 0.4 mg capsule 0.4 mg PO QPM 09/16/20 07/09/24 History hydralazine 10 mg tablet 10 mg PO TID 07/09/24 07/09/24 History isosorbide dinitrate 5 mg tablet 5 mg PO QID 07/09/24 07/09/24 History Past Med/Surg History Problem List (Updated 07/09/24 @ 13:00 by Maria Victoria Allen MD) CKD (chronic kidney disease) CHF (congestive heart failure) Poorly-controlled hypertension Nausea & vomiting (Acute) Chest pain (Acute) Encounter for pre-operative examination Medical History Belching continuous x several hours after eating/drinking BPH (benign prostatic hyperplasia) CAD (coronary artery disease) Follows with Dr. Lai/Dr. 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 History of TIA (transient ischemic attack) 2018 HTN (hypertension) Hyperlipemia Slow to wake up after anesthesia Vascular disease, peripheral Surgical History History of cardiac catheterization most recent 03/2019 at [facility] - 2 stents placed; mult caths at [facility]; mult stents (unable to recall specifics) History of colonoscopy History of coronary artery bypass graft x 3 1996 History of esophagogastroduodenoscopy (EGD) History of heart artery stent "quite a few" (2 placed 03/2019 and mult prior to) History of prior ablation treatment History of tooth extraction History of vascular surgery stent LLE Family History Other No family history of adverse response to anesthesia Social History Smoking Status: Former smoker Second Hand Exposure: No; Do You Dip or Chew Tobacco: No; Hx Alcohol Use: No Hx Substance Use: No Preferred Language: Maltese Communication Ability: Effective Hr Coordinator Required: No Beliefs That Will Affect Care: None Current Living Situation: Spouse Feels Safe at Home: Yes Assistive Devices: Denture - Upper, Denture - Lower and Hearing Aid - Bilateral Review of Systems Review of Systems: All systems reviewed & are unremarkable except as noted in HPI & below Physical Exam Constitutional: + well hydrated; no acute distress Elderly man Eyes: PERRL, conjunctivae normal, anicteric sclerae ENMT: +hearing deficits. Hearing aid in situ Respiratory: normal respiratory effort; no respiratory distress Auscultation: + diminished lung sounds Cardiovascular: Rate/Rhythm: regular rate and regular rhythm S1 S2 Gastrointestinal (Abdomen): normal bowel sounds, soft, nontender, no hepatosplenomegaly Musculoskeletal: Bilateral pitting pedal edema Neurologic: PERRL, EOMI, accommodation nl, no face palsy, no dysarthria Psychiatric: A+Ox3, euthymic affect Results & Data Results & Data Vital Signs (Past 12 Hours) Vital Signs Temp Pulse Pulse Resp BP BP Pulse Ox 07/09/24 12:24 80 204/97 H 07/09/24 12:15 79 30 H 204/97 H 94 07/09/24 12:15 79 07/09/24 11:45 77 18 208/100 H 94 07/09/24 11:15 85 22 218/110 H 93 07/09/24 11:08 07/09/24 10:52 07/09/24 10:38 07/09/24 10:25 36.4 C 90 12 219/109 H 92 O2 Del Method O2 Flow Rate 07/09/24 12:24 07/09/24 12:15 Nasal Cannula 2 07/09/24 12:15 07/09/24 11:45 Room Air 07/09/24 11:15 07/09/24 11:08 Room Air 07/09/24 10:52 Room Air 07/09/24 10:38 Room Air 07/09/24 10:25 Room Air Laboratory Results Abnormal lab results 07/09/24 07/09/24 Range/Units 10:46 11:40 RBC 3.94 L (4.70-6.10) M/uL Hgb 12.1 L (14.0-18.0) g/dl Hct 36.1 L (42.0-52.0) % RDW Std Deviation 49.9 H (36.4-46.3) fL RDW Coeff of Jessica 14.8 H (11.5-14.5) % Lymph # (Auto) 0.61 L (1.20-3.40) K/uL Stephens # (Auto) 0.68 H (0.11-0.59) K/uL Potassium 5.2 H (3.5-5.1) mmol/L Chloride 112 H (98-107) mmol/L Carbon Dioxide 20 L (21-32) mmol/L BUN 58 H (6-23) mg/dl Creatinine 2.88 H (0.6-1.4) mg/dl BUN/Creatinine Ratio 20.1 H (10-20) Glucose 107 H (70-99(Fasting)) mg/dl AST 10 L (13-39) U/L Troponin I High Sens 52.6 H* (0-20) pg/ml B-Natriuretic Peptide 1418 H (0-100) pg/ml Diagnostic Findings Radiograph of the Chest 1 View INDICATION: Chest pain. TECHNIQUE: Frontal view of the chest. COMPARISON: No relevant prior studies available. FINDINGS: Lungs and pleural spaces: The lungs are hyperinflated. There are patchy parenchymal infiltrates in both lung bases. Probable trace pleural effusions noted bilaterally. No pneumothorax. Heart: Mildly enlarged cardiac shadow. Mediastinum: Normal contour. Bones/joints: No fracture, erosion or dislocation. Soft tissues: No abnormality noted. No radiopaque foreign body noted. Upper abdomen: No abnormality noted. IMPRESSION: Patchy bilateral lower lobe infiltrates concerning for pneumonia. Trace pleural effusions. Code Status & VTE Plan Code Status Full code
[2024-07-09] MEDS: ISOSORBIDE DINITRATE 5 MG TAB PO ONE (13:04)
[2024-07-09] MEDS: amLODIPine BESYLATE 5 MG TAB PO ONE (13:04)
--- NOTE | 2024-07-09 13:14 | Electrocardiogram Report ---
Test Reason : Blood Pressure : */* mmHG Vent. Rate : 86 BPM Atrial Rate : 86 BPM P-R Int : 154 ms QRS Dur : 92 ms QT Int : 370 ms P-R-T Axes : 23 106 35 degrees QTcB Int : 442 ms Normal sinus rhythm Rightward axis Borderline ECG No previous ECGs available Confirmed by Bernardo Kraft ([id number]) on 07/09/2024 1:13:54 PM Referred By: Confirmed By: Bernardo Kraft
[2024-07-09 13:53] LABS: Adenovirus PCR Not Detected (NotDetected); Bordetella parapertussis PCR Not Detected (NotDetected); Bordetella pertussis PCR Not Detected (NotDetected); Chlamydia pneumoniae PCR Not Detected (NotDetected); Coronavirus 229E PCR Not Detected (NotDetected); Coronavirus CoV-2 (COVID19)PCR Not Detected (NotDetected); Coronavirus HKU1 PCR Not Detected (NotDetected); Coronavirus NL63 PCR Not Detected (NotDetected); Coronavirus OC43PCR Not Detected (NotDetected); Human Metapneumovirus PCR Not Detected (NotDetected); Influenza A PCR Not Detected (NotDetected); Influenza B PCR Not Detected (NotDetected); Mycoplasma pneumoniae PCR Not Detected (NotDetected); Parainfluenza Virus 1 PCR Not Detected (NotDetected); Parainfluenza Virus 2 PCR Not Detected (NotDetected); Parainfluenza Virus 3 PCR Not Detected (NotDetected); Parainfluenza Virus 4 PCR Not Detected (NotDetected); Respiratory Syncytial VirusPCR Not Detected (NotDetected); Rhinovirus/Enterovirus PCR Not Detected (NotDetected)
[2024-07-09] MEDS: NITROGLYCERIN SL 0.4 MG/TAB TAB SL STA (13:57)
[2024-07-09] MEDS: HEPARIN SOD 5,000 UNIT/0.5 ML VIAL SQ SCH (15:27)
[2024-07-09] MEDS: ISOSORBIDE DINITRATE 5 MG TAB PO SCH (17:57)
[2024-07-09] MEDS: TAMSULOSIN HCL 0.4 MG CAP PO SCH (20:00)
[2024-07-09] MEDS: amLODIPine BESYLATE 5 MG TAB PO SCH (20:00)
[2024-07-09] MEDS: METOPROLOL SUCC 25MG EXT REL TAB PO SCH (20:00)
[2024-07-09] MEDS: hydrALAZINE 10 MG TAB PO SCH (20:00)
[2024-07-09] MEDS: ROSUVASTATIN CALCIUM 20 MG TAB PO SCH (20:00)
[2024-07-10 06:39] LABS: Hematocrit (blood only) 30.8 % (42.0-52.0); Hemoglobin 10.3 g/dl (14.0-18.0); Mean Corpuscular Hemoglobin 30.9 pg (25.0-34.0); Mean Corpuscular Hgb Conc 33.4 g/dL (32.0-36.0); Mean Corpuscular Volume 92.5 fL (80.0-100.0); Mean Platelet Volume 9.7 fL (9.4-12.4); Platelet Count 120 K/uL (130-400); RDW Coefficient of Variation 14.7 % (11.5-14.5); RDW Standard Deviation 50.4 fL (36.4-46.3); Red Blood Count 3.33 M/uL (4.70-6.10); White Blood Count 5.27 K/ul (4.8-10.8)
[2024-07-10 06:56] LABS: BUN Creatinine Ratio 19.8 (10-20); Creatinine Clr Calc Pharmacy 15.2 ml/min; Magnesium 2.2 mg/dl (1.7-2.4); Phosphorus 4.4 mg/dl (2.5-4.9); Potassium 4.9 mmol/L (3.5-5.1)
--- NOTE | 2024-07-10 08:17 | Hospitalist Progress Note ---
Date of Service July 10, 2024 Assessment & Plan (1) Chest pain: (2) CHF (congestive heart failure): (3) Poorly-controlled hypertension: Plan: 89-year-old man with history of CAD status post multiple stents and CABG, PAD status post bilateral common iliac stents, TIA, bilateral carotid stenosis, CKD 4, status post left kidney cryoablation, COPD, GERD and other medical problems who presents with Chest pain for 1 day Acute on Chronic CHF Possible Pneumonia Patient presented with 1 day of chest pain. History of CABG in the past and multiple stent as per history Chest x-ray shows patchy bilateral lower lobe infiltrates. Old TTE from 2009 in [facility] noted conc LVH EF 50% Lexiscan from 2014 noted mild generalized hypokinesis, EF 52% High sensitive troponin of 52 on admission with no delta difference BNP elevated to 1400 Echo shows EF of 55 to 60% with moderate concentric LVH; wall motion is normal Started on IV diuretic with Lasix to 40 mg once a day Started on ceftriaxone and azithromycin for possible pneumonia Monitor on telemetry Hypertensive urgency BP has been poorly controlled/difficult to control per daughter and review of Cardiology office note from 06/27/24 Got IV hydralazine and metoprolol in ER Patient reports no nausea at this time Change metoprolol to Coreg 12.5 mg twice daily for better blood pressure control. Continue on amlodipine 5 mg twice daily. Lasix IV added at this time; will potentially benefit with diuretic as outpatient. Hydralazine stopped. (4) Nausea & vomiting: (5) History of TIA (transient ischemic attack): (6) Vascular disease, peripheral: (7) CAD (coronary artery disease): Plan: Continue home DAPT Continue medical management (8) History of kidney cancer: (9) CKD (chronic kidney disease): Plan: Cr is 2.88 on admission Cr has been 2.1-2.9 per [facility] chart review this year Monitor Avoid nephrotoxins Lisinopril currently on hold (10) GERD (gastroesophageal reflux disease): Plan: Continue home PPI (11) COPD (chronic obstructive pulmonary disease): Plan: Continue home inhalers Code status: Full DVT ppx: Hep sq Updated patient's son over the phone. Time spent evaluating patient, direct bedside care, chart review, placing orders, interpretation of diagnostic studies, discussion with consultants, patient, and family members, as well as other required patient management activities is 50 minutes Please note the above document was generated using voice recognition software. It may contain grammatical, syntax or spelling errors. Any formal questions or concerns about the content, text or information contained within the body of this dictation should be directly addressed to the provider for clarification Admission and Anticipated Discharge Date Admission Date: July 09, 2024 Subjective Patient seen and examined at bedside. He is comfortable; not in distress. He denies any chest pain or discomfort No significant events overnight Review of Systems Review of Systems: All systems reviewed & are unremarkable except as noted in Subjective Physical Exam Physical Exam: Constitutional: Alert oriented x 3; not in distress. Respiratory: Decreased breath sound at bases Cardiovascular: RRR, no murmur, no edema Vessels: no JVD or carotid bruit Chest: normal inspection of chest Abdomen: normal bowel sounds, soft, nontender, no hepatosplenomegaly Musculoskeletal: no cyanosis or clubbing, extremities motor strength 5/5 Skin: Bilateral lower extremity pitting edema Neurologic: PERRL, EOMI, accommodation nl, no face palsy, no dysarthria CN's II- XI intact bilaterally and moves all extremities Psychiatric: A+Ox3, euthymic affect Results & Data Results & Data Vital Signs (Past 12 Hours) Vital Signs Temp Pulse Pulse Resp BP Pulse Ox O2 Del Method 07/10/24 07:52 36.7 C 75 18 157/80 H 91 Nasal Cannula 07/10/24 07:24 70 07/10/24 03:05 36.8 C 76 20 152/72 H 94 Room Air 07/09/24 23:19 36.7 C 80 19 164/75 H 90 Room Air 07/09/24 23:00 77 07/09/24 22:20 Room Air O2 Flow Rate 07/10/24 07:52 2.0 07/10/24 07:24 07/10/24 03:05 07/09/24 23:19 07/09/24 23:00 07/09/24 22:20
[2024-07-10] MEDS: FLUTICASONE/VILANTEROL 200/25MCG 14 PUFFS/INHALER INH SCH (08:28)
[2024-07-10] MEDS: ASPIRIN 81 MG ECTAB PO SCH (08:29)
[2024-07-10] MEDS: FUROSEMIDE 40 MG/4 ML VIAL IV SCH (08:30)
[2024-07-10] MEDS: CLOPIDOGREL BISULFATE 75 MG TAB PO SCH (08:30)
[2024-07-10] MEDS: PANTOprazole 40 MG TAB PO SCH (08:30)
[2024-07-10] MEDS: FINASTERIDE 5 MG TAB PO SCH (08:30)
[2024-07-10] MEDS: carvediloL 12.5 MG TAB PO SCH (08:37)
--- NOTE | 2024-07-10 08:45 | Cardiology Consultation ---
Date of Consultation July 10, 2024 Assessment & Plan (1) Hypertensive urgency: (2) Nausea & vomiting: (3) Chest pain: (4) CAD (coronary artery disease): Plan Patient is an 89-year-old male with complex cardiac history as outlined presents with signs and symptoms of chest pain anorexia and hypertensive urgency. Patient notes unable to take medications for 2 or 3 days. Generalized poor appetite and poor p.o. intake with postprandial emesis. Weight loss of at least 15 pounds. Issues were addressed as follows 1. Hypertensive urgency with chest pain: Clinically improved with blood pressure control predominantly by taking home medications. Current event appears to be exacerbated by lapse in therapies. 2. Elevated troponin: Flat without evolution. Likely secondary to renal insufficiency, hypertension 3. Chronic coronary artery disease with preserved LV systolic function 4. CKD stage IV: Edema on presentation has resolved with single dose of IV furosemide with hold IV furosemide 5. Nausea anorexia: Question GI source versus secondary to uremia. Will hold hydralazine given very low dose as patient concerned it may be contributing to complaints History of Present Illness Reason for Consultation: Chest pain, hypertensive urgency Requesting Physician: [facility] hospitalist Attending Physician: Saeed Gutierrez MD History of Present Illness Patient is an 89-year-old male with complex underlying medical issues as defined by recent outpatient visit. Underlying cardiac concerns include 1. Atherosclerotic heart disease 1. Numerous prior cardiac catheterizations 2. Status post PTCA of an unknown vessel on 03/04/1995 3. Status post CABG x 3 on 01/24/1997 4. Status post proximal LCX stenting 5. Status post mid LCX stenting 6. Status post left main coronary artery stenting (03/27/2019) 2. Nonrheumatic mitral regurgitation 3. Systolic and diastolic heart failure. 4. Peripheral artery disease, followed by [facility] Vascular Surgery 1. TIA in 2008 2. High grade right internal carotid artery stenosis, managed medically. 3. Mild left internal carotid artery stenosis 4. Status post bilateral common iliac artery stenting by Dr. Pham at [facility] on 06/09/2011 for low back and hip discomfort with ambulation 5. Status post June 2019 balloon angioplasty left NAN/EIA stenting by Dr. Pride 5. Hypertension 6. Dyslipidemia 7. Chronic kidney disease, stage IV 8. Status post left kidney cryoablation, 07/30/2010 9. Mantle cell lymphoma status post chemotherapy 10. Chronic obstructive pulmonary disease Patient recently seen in the outpatient setting on 06/27/2024 with difficult to control blood pressures Presents now with chest pain and elevated blood pressures. In part due to lapse in medical therapies. Per patient and son's been unable to eat any significant amount for greater than 48 hours including medications. Ongoing difficulties with nausea and anorexia and poor p.o. intake. Does not drink water only milk and orange juice. Has had Postprandial emesis. Did use nitroglycerin x 2 yesterday due to chest pressure and elevated blood pressure Currently feels improved since admission edema on presentation has essentially resolved. Blood pressures are trending towards much better controlled with usual medications and addition of amlodipine He denies specific abdominal pain or discomfort. Notes no melena or medic easier. No fevers chills or unexplained infections currently. Minimal activity at home Troponins elevated but flat without evolution to suggest injury or ischemia. Echocardiogram with preserved ejection fraction Allergies Allergy/AdvReac Type Severity Reaction Status Date / Time ciprofloxacin [From Cipro] AdvReac Vomiting Verified 09/19/20 10:27 Iodinated Contrast Media AdvReac Unknown Verified 09/19/20 10:27 Home Medications Medication Instructions Recorded Confirmed Type acetaminophen 325 mg tablet 325 mg PO QID PRN Pain 09/16/20 07/09/24 History (Tylenol) albuterol 90 mcg/actuation aerosol 90 mcg inhalation UD PRN sob 09/16/20 07/09/24 History inhaler amlodipine 5 mg tablet (Norvasc) 5 mg PO BID 09/16/20 07/09/24 History aspirin 81 mg tablet,delayed 81 mg PO DAILY 09/16/20 07/09/24 History release clopidogrel 75 mg tablet (Plavix) 75 mg PO QAM 09/16/20 07/09/24 History finasteride 5 mg tablet 5 mg PO QAM 09/16/20 07/09/24 History fluticasone 250 mcg-salmeterol 50 1 inh inhalation BID 09/16/20 07/09/24 History mcg/dose blistr powdr for inhalation (Advair Diskus) lisinopril 5 mg tablet 5 mg PO QAM 09/16/20 07/09/24 History metoprolol succinate 25 mg 25 mg PO BID 09/16/20 07/09/24 History tablet,extended release 24 hr nitroglycerin 0.4 mg sublingual 0.4 mg sublingual UD PRN Chest Pain 09/16/20 07/09/24 History tablet (Nitrostat) pantoprazole 40 mg tablet,delayed 40 mg PO QAM 09/16/20 07/09/24 History release (Protonix) rosuvastatin 20 mg tablet (Crestor) 20 mg PO QPM 09/16/20 07/09/24 History tamsulosin 0.4 mg capsule 0.4 mg PO QPM 09/16/20 07/09/24 History hydralazine 10 mg tablet 10 mg PO TID 07/09/24 07/09/24 History isosorbide dinitrate 5 mg tablet 5 mg PO QID 07/09/24 07/09/24 History Patient History Medical History Slow to wake up after anesthesia Vascular disease, peripheral BPH (benign prostatic hyperplasia) Hiatal hernia Dysphagia Belching continuous x several hours after eating/drinking GERD (gastroesophageal reflux disease) History of kidney cancer 2010 cryoablation therapy; follows with [facility] 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 Lai/Dr. Mancilla History of TIA (transient ischemic attack) 2018 History of myocardial infarction 1992 Hyperlipemia HTN (hypertension) COPD (chronic obstructive pulmonary disease) Surgical History History of tooth extraction History of vascular surgery stent LLE History of esophagogastroduodenoscopy (EGD) History of colonoscopy History of prior ablation treatment History of heart artery stent "quite a few" (2 placed 03/2019 and mult prior to) History of cardiac catheterization most recent 03/2019 at [facility] - 2 stents placed; mult caths at [facility]; mult stents (unable to recall specifics) History of coronary artery bypass graft x 3 1996 Family History Other No family history of adverse response to anesthesia Social History Smoking Status: Former smoker Second Hand Exposure: No; Do You Dip or Chew Tobacco: No; Hx Alcohol Use: No Hx Substance Use: No Preferred Language: Fijian Communication Ability: Effective Drilling Foreman Required: No Beliefs That Will Affect Care: None Current Living Situation: Spouse Feels Safe at Home: Yes Safety Concerns: Feels Safe At This Time Assistive Devices: None Review of Systems Review of Systems: All systems reviewed & are unremarkable except as noted in HPI & below Physical Exam Constitutional: + ill appearing and + thin; no acute dis tress Eyes: PERRL, conjunctivae normal, anicteric sclerae ENMT: external ear and nose normal, oropharynx normal Neck: trachea midline, no thyromegaly Respiratory: Auscultation: no rales Cardiovascular: Rate/Rhythm: regular rate and regular rhythm Heart Sounds: normal S1, normal S2 and + murmur (Grade 1/6 systolic murmur, no diastolic) Vessels: no JVD Extremities: no edema Gastrointestinal (Abdomen): normal bowel sounds, soft, nontender, no hepatosplenomegaly Musculoskeletal: no cyanosis or clubbing, extremities motor strength 5/5 Results & Data Vital Signs (Past 12 Hours) Vital Signs Temp Pulse Pulse Resp BP Pulse Ox O2 Del Method 07/10/24 07:52 36.7 C 75 18 157/80 H 91 Nasal Cannula 07/10/24 07:24 70 07/10/24 03:05 36.8 C 76 20 152/72 H 94 Room Air 07/09/24 23:19 36.7 C 80 19 164/75 H 90 Room Air 07/09/24 23:00 77 07/09/24 22:20 Room Air O2 Flow Rate 07/10/24 07:52 2.0 07/10/24 07:24 07/10/24 03:05 07/09/24 23:19 07/09/24 23:00 07/09/24 22:20 Laboratory Results Laboratory Results - last 24 hr 07/09/24 07/09/24 07/09/24 10:46 11:40 12:47 WBC 7.28 RBC 3.94 L Hgb 12.1 L Hct 36.1 L MCV 91.6 MCH 30.7 MCHC 33.5 RDW Std Deviation 49.9 H RDW Coeff of Jessica 14.8 H Plt Count 158 MPV 10.8 Immature Gran % (Auto) 0.7 Neut % (Auto) 80.3 Lymph % (Auto) 8.4 [place] % (Auto) 9.3 Eos % (Auto) 0.8 Baso % (Auto) 0.5 Neut # (Auto) 5.84 Lymph # (Auto) 0.61 L [place] # (Auto) 0.68 H Eos # (Auto) 0.06 Baso # (Auto) 0.04 Immature Gran # (Auto) 0.05 Sodium 140 Potassium TNP 5.2 H Chloride 112 H Carbon Dioxide 20 L Anion Gap 8 BUN 58 H Creatinine 2.88 H Est Cr Clr Drug Dosing 16.0 eGFR 20.34 BUN/Creatinine Ratio 20.1 H Glucose 107 H Calcium 9.5 Phosphorus Magnesium Total Bilirubin 0.6 AST TNP 10 L ALT 8 Alkaline Phosphatase 41 Troponin I High Sens 52.6 H* 53.6 H* B-Natriuretic Peptide 1418 H Total Protein 7.1 Albumin 4.3 Globulin 2.8 Albumin/Globulin Ratio 1.5 Lipase 54 Adenovirus (PCR) B. pertussis DNA (PCR) B.parapertussis DNA PCR C. pneumoniae DNA (PCR) Coronavirus OC43 (PCR) Coronavirus HKU1 (PCR) Coronavirus 229E (PCR) SARS-CoV-2 (PCR) Coronavirus NL63 (PCR) Human Metapneumovir PCR Influenza Type A (PCR) Influenza Type B (PCR) M. pneumoniae (PCR) Parainfluenza 1 (PCR) Parainfluenza 2 (PCR) Parainfluenza 3 (PCR) Parainfluenza 4 (PCR) RSV (PCR) Entero/Rhino (PCR) 07/09/24 07/09/24 07/09/24 12:57 17:18 22:21 WBC RBC Hgb Hct MCV MCH MCHC RDW Std Deviation RDW Coeff of Jessica Plt Count MPV Immature Gran % (Auto) Neut % (Auto) Lymph % (Auto) [place] % (Auto) Eos % (Auto) Baso % (Auto) Neut # (Auto) Lymph # (Auto) [place] # (Auto) Eos # (Auto) Baso # (Auto) Immature Gran # (Auto) Sodium Potassium Chloride Carbon Dioxide Anion Gap BUN Creatinine Est Cr Clr Drug Dosing eGFR BUN/Creatinine Ratio Glucose Calcium Phosphorus Magnesium Total Bilirubin AST ALT Alkaline Phosphatase Troponin I High Sens 54.3 H* 54.3 H* B-Natriuretic Peptide Total Protein Albumin Globulin Albumin/Globulin Ratio Lipase Adenovirus (PCR) Not Detected B. pertussis DNA (PCR) Not Detected B.parapertussis DNA PCR Not Detected C. pneumoniae DNA (PCR) Not Detected Coronavirus OC43 (PCR) Not Detected Coronavirus HKU1 (PCR) Not Detected Coronavirus 229E (PCR) Not Detected SARS-CoV-2 (PCR) Not Detected Coronavirus NL63 (PCR) Not Detected Human Metapneumovir PCR Not Detected Influenza Type A (PCR) Not Detected Influenza Type B (PCR) Not Detected M. pneumoniae (PCR) Not Detected Parainfluenza 1 (PCR) Not Detected Parainfluenza 2 (PCR) Not Detected Parainfluenza 3 (PCR) Not Detected Parainfluenza 4 (PCR) Not Detected RSV (PCR) Not Detected Entero/Rhino (PCR) Not Detected 07/10/24 05:47 WBC 5.27 RBC 3.33 L Hgb 10.3 L Hct 30.8 L MCV 92.5 MCH 30.9 MCHC 33.4 RDW Std Deviation 50.4 H RDW Coeff of Jessica 14.7 H Plt Count 120 L MPV 9.7 Immature Gran % (Auto) Neut % (Auto) Lymph % (Auto) [place] % (Auto) Eos % (Auto) Baso % (Auto) Neut # (Auto) Lymph # (Auto) [place] # (Auto) Eos # (Auto) Baso # (Auto) Immature Gran # (Auto) Sodium 141 Potassium 4.9 Chloride 114 H Carbon Dioxide 20 L Anion Gap 7 BUN 60 H Creatinine 3.03 H Est Cr Clr Drug Dosing 15.2 eGFR 19.14 BUN/Creatinine Ratio 19.8 Glucose 90 Calcium 9.0 Phosphorus 4.4 Magnesium 2.2 Total Bilirubin AST ALT Alkaline Phosphatase Troponin I High Sens B-Natriuretic Peptide Total Protein Albumin Globulin Albumin/Globulin Ratio Lipase Adenovirus (PCR) B. pertussis DNA (PCR) B.parapertussis DNA PCR C. pneumoniae DNA (PCR) Coronavirus OC43 (PCR) Coronavirus HKU1 (PCR) Coronavirus 229E (PCR) SARS-CoV-2 (PCR) Coronavirus NL63 (PCR) Human Metapneumovir PCR Influenza Type A (PCR) Influenza Type B (PCR) M. pneumoniae (PCR) Parainfluenza 1 (PCR) Parainfluenza 2 (PCR) Parainfluenza 3 (PCR) Parainfluenza 4 (PCR) RSV (PCR) Entero/Rhino (PCR)
[2024-07-10] MEDS: cefTRIAXone SODIUM 2,000 MG/50 ML BAG IV SCH (08:55)
[2024-07-10] MEDS: AZITHROMYCIN 250 MG TAB PO SCH (08:55)
[2024-07-10] MEDS ORDERED: lisinopril 5 MG TAB PO SCH (09:00)
[2024-07-10] MEDS: ALBUTEROL HFA 8 GM INHALER INH PRN (21:18)
[2024-07-11] MEDS: LABETALOL HCL IV 5 MG/ML 20ML IV STA (02:48)
[2024-07-11 06:16] LABS: Basophils # (auto) 0.04 K/uL (0.00-0.20); Basophils % (auto) 0.6 %; Eosinophils # (auto) 0.31 K/uL (0.00-0.50); Eosinophils % (auto) 4.7 %; Hematocrit (blood only) 31.5 % (42.0-52.0); Hemoglobin 10.7 g/dl (14.0-18.0); Immature Granulocytes # (auto) 0.02 K/uL (0.01-0.20); Immature Granulocytes % (auto) 0.3 %; Lymphocytes # (auto) 0.81 K/uL (1.20-3.40); Lymphocytes % (auto) 12.3 %; Mean Corpuscular Volume 91.3 fL (80.0-100.0); Mean Platelet Volume 9.7 fL (9.4-12.4); Monocytes % (auto) 10.7 %; Neutrophils # (auto) 4.68 K/uL (1.40-6.50); Neutrophils % (auto) 71.4 %; Platelet Count 135 K/uL (130-400); RDW Coefficient of Variation 14.5 % (11.5-14.5); Red Blood Count 3.45 M/uL (4.70-6.10); White Blood Count 6.56 K/ul (4.8-10.8)
[2024-07-11 06:29] LABS: BUN Creatinine Ratio 20.5 (10-20); Creatinine Clr Calc Pharmacy 13.7 ml/min; Potassium 5.1 mmol/L (3.5-5.1)
[2024-07-11] MEDS ORDERED: carvediloL 25 MG TAB PO SCH (08:00)
[2024-07-11] MEDS: carvediloL 12.5 MG TAB PO ONE (08:51)
--- NOTE | 2024-07-11 08:54 | Hospitalist Progress Note ---
Date of Service July 11, 2024 Assessment & Plan (1) Chest pain: (2) CHF (congestive heart failure): (3) Poorly-controlled hypertension: (4) Nausea & vomiting: (5) History of TIA (transient ischemic attack): (6) Vascular disease, peripheral: (7) CAD (coronary artery disease): (8) History of kidney cancer: (9) CKD (chronic kidney disease): (10) GERD (gastroesophageal reflux disease): (11) COPD (chronic obstructive pulmonary disease): Plan: 89-year-old man with history of CAD status post multiple stents and CABG, PAD status post bilateral common iliac stents, TIA, bilateral carotid stenosis, CKD 4, status post left kidney cryoablation, COPD, GERD and other medical problems who presents with Chest pain for 1 day Acute on Chronic CHF, resolved Possible Pneumonia Patient presented with 1 day of chest pain. History of CABG in the past and multiple stent as per history Chest x-ray shows patchy bilateral lower lobe infiltrates. Old TTE from 2009 in [facility] noted conc LVH EF 50% Lexiscan from 2014 noted mild generalized hypokinesis, EF 52% High sensitive troponin of 52 on admission with no delta difference BNP elevated to 1400 Echo shows EF of 55 to 60% with moderate concentric LVH; wall motion is normal Patient was given IV Lasix 40 mg with improvement of bilateral lower extremity edema which has been now discontinued. Continue on ceftriaxone and azithromycin for possible pneumonia Monitor on telemetry Hypertensive urgency BP has been poorly controlled/difficult to control per daughter and review of Cardiology office note from 06/27/24 Got IV hydralazine and metoprolol in ER Increase Coreg to 25 mg twice daily; continue on amlodipine. Diuretics are currently on hold due to elevation in the creatinine Hydralazine stopped. ROSALBA on CKD Acute urinary retention Unable to obtain accurate baseline; outpatient record of creatinine varies from 2.1-2.9. Likely underlying cause for CKD is significant hypertension. Creatinine up trended to 3.37 Bladder scan with retention; Garcia placed on 07/11 Obtain urinalysis, protein creatinine ratio, urine electrolytes Will consult nephrology given his progressive ROSALBA on CKD. History of CADcontinue on DAPT GERDcontinue on home PPI COPDcontinue home inhalers Code status: Full DVT ppx: Hep sq Updated patient's son over the phone on 07/10/2024. Time spent evaluating patient, direct bedside care, chart review, placing orders, interpretation of diagnostic studies, discussion with consultants, patient, and family members, as well as other required patient management activities is 50 minutes Please note the above document was generated using voice recognition software. It may contain grammatical, syntax or spelling errors. Any formal questions or concerns about the content, text or information contained within the body of this dictation should be directly addressed to the provider for clarification Admission and Anticipated Discharge Date Admission Date: July 09, 2024 Subjective Patient seen and examined at bedside. He is comfortable Blood Pressure continues to be on higher side; required IV labetalol overnight Review of Systems Review of Systems: All systems reviewed & are unremarkable except as noted in Subjective Physical Exam Physical Exam: Constitutional: Alert oriented x 3; not in distress. Respiratory: Decreased breath sound at bases Cardiovascular: RRR, no murmur, no edema Vessels: no JVD or carotid bruit Chest: normal inspection of chest Abdomen: normal bowel sounds, soft, nontender, no hepatosplenomegaly Musculoskeletal: no cyanosis or clubbing, extremities motor strength 5/5 Skin: Bilateral lower extremity pitting edema Neurologic: PERRL, EOMI, accommodation nl, no face palsy, no dysarthria CN's II- XI intact bilaterally and moves all extremities Psychiatric: A+Ox3, euthymic affect Results & Data Results & Data Vital Signs (Past 12 Hours) Vital Signs Temp Pulse Pulse Resp BP BP Pulse Ox 07/11/24 08:50 69 138/72 07/11/24 07:37 36.5 C 76 18 184/89 H 93 07/11/24 07:16 63 07/11/24 03:03 64 183/99 H 07/11/24 03:03 36.9 C 71 20 179/72 H 91 07/11/24 02:48 71 188/82 H 07/10/24 23:07 36.5 C 68 18 166/86 H 90 07/10/24 22:00 68 07/10/24 21:18 69 16 93 O2 Del Method 07/11/24 08:50 07/11/24 07:37 Room Air 07/11/24 07:16 07/11/24 03:03 07/11/24 03:03 Room Air 07/11/24 02:48 07/10/24 23:07 Room Air 07/10/24 22:00 07/10/24 21:18 Room Air
[2024-07-11 10:28] LABS: Appearance Urine Clear (Clear); Bilirubin Urine Negative (Negative); Blood Urine Negative (Negative); Color Urine Yellow; Glucose Urine UA Negative (Negative); Ketones Urine Negative (Negative); Leukocyte Esterase Urine Negative (Negative); Nitrite Urine Negative (Negative); Protein Urine Negative (Negative); Specific Gravity Urine 1.012 (1.000-1.030); Urobilinogen Urine Negative (Negative)
[2024-07-11 10:49] LABS: Creatinine Urine Random 78.3 mg/dl; Creatinine Urine Random 82.4 mg/dl; Protein Creatinine Ratio Urine 0.1 (0-0.2); Urine Potassium 40.3 mmol/L
--- NOTE | 2024-07-11 10:51 | Cardiology Progress Note ---
Date of Service July 11, 2024 Assessment & Plan (1) Hypertensive urgency: (2) Acute kidney injury: (3) Nausea & vomiting: (4) Elevated troponin: (5) ASCVD (arteriosclerotic cardiovascular disease): Plan 89-year-old male admitted with chest pain, anorexia, hypertensive urgency (unable to take medications x 2 or 3 days prior to arrival). 1. Hypertensive urgency with chest pain. Current event appears to be exacerbated by lapse in therapies. Metoprolol changed to carvedilol this admission. Amlodipine increased to 5 mg twice per day. Isordil increased to 4 times per day. Resume Hydralazine 10 mg BID to start 2. Elevated troponin: Flat without evolution. Likely secondary to renal insufficiency, hypertension. Patient with chronic coronary artery disease with preserved LV systolic function. Continue medical management. 3. CKD stage IV: Edema on presentation has resolved with single dose of IV furosemide. Volume status is compensated. 4. Poor PO intake with early satiety, postprandial nausea and emesis, and weight loss. Known large hiatal hernia, gastris, stricture, GERD. Depression is a contributing factor. ? mesenteric ischemia and/or uremia contributing? Admission and Anticipated Discharge Date Admission Date: July 09, 2024 Supervising Physician Co-Signing Physician Notes Patient was seen and personally examined. Full care assessment and plan as outlined well by advanced provider above. Care and management discussed and personally endorsed Subjective Patient seen and examined. Chart, medications, and telemetry reviewed. Discussed with son Patient notes having a rough night Feeling better this morning Appetite seems to be improving, previously with nausea and emesis with any intake, 15 pound weight loss noted over the last month or so Blood pressures improved Telemetry: Sinus with heart rates predominantly in the 60s and 70s Review of Systems Review of Systems: Complete review of systems is otherwise as stated above, negative, or noncontributory. Physical Exam Physical Exam: General: Hard of hearing. NAD. Comfortable and cooperative Eyes: PER. Conjunctiva pink, sclera clear. Back: Cystic mass, right posterior shoulder. HENT: Normocephalic. Atraumatic. Neck: Bilateral carotid bruits. No JVD. No HJR. Heart: RRR 70 bpm. Soft systolic murmur. No rub. No gallop. PMI is nondisplaced. Lungs: Diminished. Decreased. No abnormal breath sounds auscultated. Abdomen: +BS. Soft. Nontender. No masses. No organomegaly. Extremities: No significant edema. No clubbing. No cyanosis Pulses: radial=2/4, posterior tibial=0/4. Limited neurological examination: No focal deficit. Results & Data Vital Signs (Past 12 Hours) Vital Signs Temp Pulse Pulse Resp BP BP Pulse Ox 07/11/24 09:26 07/11/24 08:50 69 138/72 07/11/24 07:37 36.5 C 76 18 184/89 H 93 07/11/24 07:16 63 07/11/24 03:03 64 183/99 H 07/11/24 03:03 36.9 C 71 20 179/72 H 91 07/11/24 02:48 71 188/82 H 07/10/24 23:07 36.5 C 68 18 166/86 H 90 O2 Del Method 07/11/24 09:26 Room Air 07/11/24 08:50 07/11/24 07:37 Room Air 07/11/24 07:16 07/11/24 03:03 07/11/24 03:03 Room Air 07/11/24 02:48 07/10/24 23:07 Room Air Laboratory Results CBC 07/11/24 Range/Units 05:43 WBC 6.56 (4.8-10.8) K/ul RBC 3.45 L (4.70-6.10) M/uL Hgb 10.7 L (14.0-18.0) g/dl Hct 31.5 L (42.0-52.0) % Plt Count 135 (130-400) K/uL Neut # (Auto) 4.68 (1.40-6.50) K/uL Lymph # (Auto) 0.81 L (1.20-3.40) K/uL [place] # (Auto) 0.70 H (0.11-0.59) K/uL Eos # (Auto) 0.31 (0.00-0.50) K/uL Baso # (Auto) 0.04 (0.00-0.20) K/uL Comprehensive Metabolic Panel 07/11/24 Range/Units 05:43 Sodium 140 (136-145) mmol/L Potassium 5.1 (3.5-5.1) mmol/L Chloride 112 H (98-107) mmol/L Carbon Dioxide 20 L (21-32) mmol/L BUN 69 H (6-23) mg/dl Creatinine 3.37 H D (0.6-1.4) mg/dl Glucose 94 (70-99(Fasting)) mg/dl Calcium 9.0 (8.6-10.3) mg/dl Intake and Output 07/10/24 07/11/24 07/11/24 22:59 06:59 14:59 Intake Total 240 / 770 50 / 50 Output Total 400 / 400 Balance 240 / 770 -350 / -350 Intake: IV 50 / 50 cefTRIAXone SODIUM 2,000 mg In 50 / 50 50 ml @ 100 mls/hr IV Q24H [facility] Rx#:[id number] Oral 240 / 720 Output: Urine Amount (Catheter) 400 / 400 Garcia/Indwelling 400 / 400 Other: Weight 66.1 kg Weight Measurement Method Built in [facility]
--- NOTE | 2024-07-11 13:27 | Nephrology Consultation ---
Date of Consultation July 11, 2024 Assessment & Plan (1) Acute kidney injury: from baseline creatinine of around 2.5-2.9 creatinine is slightly higher. however the acute component is not that much as this is predominantly CKD from hypertension as well as vascular disease. he was found to have some urinary retention on the bladder scan so it is reasonable to do renal ultrasound to assess for chronicity of uropathy. in an elderly man with extensive comorbid disease and advanced pre-existing CK D any infection can cause some elevation in creatinine. he did have some shortness of breath and chest pain and possible pneumonia in this is enough to cause rising creatinine. I would not necessarily give him anymore fluid nor any Lasix as he looks fairly euvolemic. avoid nephrotoxic agents including NSAIDs nephrotoxic antibiotics contrast agents. daily renal panel and CBC input output charting and daily which charting (2) CKD (chronic kidney disease): last outpatient creatinine was from February 2024 and he already had a creatinine of 2.5 putting him at CKD stage 4 and the cause is multifactorial from hypotension vascular disease and age. He has had multiple canceled appointment with Nephrology and does not appear he has ever seen Nephrology. he would benefi t from having Nephrology follow-up if patient is agreeable (3) CHF (congestive heart failure): he had some chest pain and shortness of breath and does have underlying history of congestive heart failure. However he does not appear to be overtly fluid overloaded at this time and agree with Cardiology about no further Lasix (4) Poorly-controlled hypertension: his blood pressure is now perfectly controlled once his home blood pressure regimen was restarted. This pretty much proves that he was not taking his medications at home as he was supposed to Plan Case complexity moderately high. Time spent 62 minutes History of Present Illness Reason for Consultation: acute kidney injury on background CKD 4 Attending Physician: Saeed Gutierrez MD History of Present Illness 89-year-old man with pre-existing CKD 4 with baseline creatinine of 2.5 as of February 2024. he also has CAD status post multiple stents and CABG, PAD status post bilateral common iliac stents, TIA, bilateral carotid stenosis, status post left kidney cryoablation, COPD, GERD and other medical problems who presented with chest pain 2 days ago on July 09, 2024. patient is extremely hard of hearing and has some confusion and was not able to give me history. Currently chest pain-free. As per the H and P patient was ill for the past few days associated with nausea and vomiting (clear vomiting). Poor appetite and not sure whether he was taking his medications or not as per H and P there was some mention of shortness of breath as well as lower extremity edema on admission. since admission he got 1 dose of Lasix. renal function has been worsening from the admission: baseline creatinine 2.5 admission creatinine 2.9 next day 3.03 the following day which is today 3.37. he is not getting any IV fluids nor any diuretics. he was found to have urinary retention with Bladder scan. Garcia placed on 07/11 Denies any fever, congestion, sore throat Denies abd pain, diarrhea Denies dysuria, freq, urgency review of systems----- unable to obtain secondary to extremely hard of hearing. Physical Exam Constitutional: + well hydrated; no acute distress Elde rly man Eyes: PERRL, conjunctivae normal, anicteric sclerae ENMT: +hearing deficits. Respiratory: normal respiratory effort. no respiratory distress + diminished lung sounds Cardiovascular: Rate/Rhythm: regular rate and regular rhythm S1 S2 Gastrointestinal (Abdomen): normal bowel sounds, soft, nontender, no hepatosplenomegaly Musculoskeletal: No edema Neurologic: PERRL, EOMI, accommodation nl, no face palsy, no dysarthria Psychiatric: A+Ox3, euthymic affect Allergies Allergy/AdvReac Type Severity Reaction Status Date / Time ciprofloxacin [From Cipro] AdvReac Vomiting Verified 09/19/20 10:27 Iodinated Contrast Media AdvReac Unknown Verified 09/19/20 10:27 Home Medications Medication Instructions Recorded Confirmed Type acetaminophen 325 mg tablet 325 mg PO QID PRN Pain 09/16/20 07/09/24 History (Tylenol) albuterol 90 mcg/actuation aerosol 90 mcg inhalation UD PRN sob 09/16/20 07/09/24 History inhaler amlodipine 5 mg tablet (Norvasc) 5 mg PO BID 09/16/20 07/09/24 History aspirin 81 mg tablet,delayed 81 mg PO DAILY 09/16/20 07/09/24 History release clopidogrel 75 mg tablet (Plavix) 75 mg PO QAM 09/16/20 07/09/24 History finasteride 5 mg tablet 5 mg PO QAM 09/16/20 07/09/24 History fluticasone 250 mcg-salmeterol 50 1 inh inhalation BID 09/16/20 07/09/24 History mcg/dose blistr powdr for inhalation (Advair Diskus) lisinopril 5 mg tablet 5 mg PO QAM 09/16/20 07/09/24 History metoprolol succinate 25 mg 25 mg PO BID 09/16/20 07/09/24 History tablet,extended release 24 hr nitroglycerin 0.4 mg sublingual 0.4 mg sublingual UD PRN Chest Pain 09/16/20 07/09/24 History tablet (Nitrostat) pantoprazole 40 mg tablet,delayed 40 mg PO QAM 09/16/20 07/09/24 History release (Protonix) rosuvastatin 20 mg tablet (Crestor) 20 mg PO QPM 09/16/20 07/09/24 History tamsulosin 0.4 mg capsule 0.4 mg PO QPM 09/16/20 07/09/24 History hydralazine 10 mg tablet 10 mg PO TID 07/09/24 07/09/24 History isosorbide dinitrate 5 mg tablet 5 mg PO QID 07/09/24 07/09/24 History Patient History Medical History Slow to wake up after anesthesia Vascular disease, peripheral BPH (benign prostatic hyperplasia) Hiatal hernia Dysphagia Belching continuous x several hours after eating/drinking GERD (gastroesophageal reflux disease) History of kidney cancer 2010 cryoablation therapy; follows with [facility] nephrology 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 Lai/Dr. Mancilla History of TIA (transient ischemic attack) 2018 History of myocardial infarction 1992 Hyperlipemia HTN (hypertension) COPD (chronic obstructive pulmonary disease) Surgical History History of tooth extraction History of vascular surgery stent LLE History of esophagogastroduodenoscopy (EGD) History of colonoscopy History of prior ablation treatment History of heart artery stent "quite a few" (2 placed 03/2019 and mult prior to) History of cardiac catheterization most recent 03/2019 at [facility] - 2 stents placed; mult caths at [facility]; mult stents (unable to recall specifics) History of coronary artery bypass graft x 3 1997 Family History Other No family history of adverse response to anesthesia Social History Smoking Status: Former smoker Second Hand Exposure: No; Do You Dip or Chew Tobacco: No; Hx Alcohol Use: No Hx Substance Use: No Preferred Language: Amharic Communication Ability: Effective 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: No Beliefs That Will Affect Care: None Current Living Situation: Spouse Feels Safe at Home: Yes Safety Concerns: Feels Safe At This Time Assistive Devices: None Results & Data Vital Signs (Past 12 Hours) Vital Signs Temp Pulse Pulse Resp BP BP Pulse Ox 07/11/24 11:08 36.7 C 61 18 131/68 94 07/11/24 09:26 07/11/24 08:50 69 138/72 07/11/24 07:37 36.5 C 76 18 184/89 H 93 07/11/24 07:16 63 07/11/24 03:03 64 183/99 H 07/11/24 03:03 36.9 C 71 20 179/72 H 91 07/11/24 02:48 71 188/82 H O2 Del Method 07/11/24 11:08 Room Air 07/11/24 09:26 Room Air 07/11/24 08:50 07/11/24 07:37 Room Air 07/11/24 07:16 07/11/24 03:03 07/11/24 03:03 Room Air 07/11/24 02:48 Laboratory Results CBC renal panel was reviewed from outpatient as well as inpatient Diagnostic Findings chest x-ray and echocardiogram reviewed---Patchy bilateral lower lobe infiltrates concerning for pneumonia. Trace pleural effusions.
--- NOTE | 2024-07-11 15:29 | Ultrasound Report ---
RENAL ULTRASOUND CLINICAL HISTORY: ROSALBA with urine retention COMPARISON STUDY: PET/CT March 17, 2017. TECHNIQUE: Sonography of the kidneys and the urinary bladder was performed. FINDINGS: There is no hydronephrosis. The right kidney measures 10 cm in maximal dimension and the le ft measures 7.7 cm. There is mild right renal cortical thinning. Marked left renal atrophy is again n oted. Anechoic bilateral renal lesions represent cysts. These measure up to 3 cm. A Garcia within the bladder is noted. The bladder wall is markedly thickened, accentuated by underdistention. The wall me asures 2.4 cm in thickness. A left pleural effusion is incidentally noted. There are gallstones withi n the gallbladder. The gallbladder wall is thickened and edematous. There is trace pericholecystic fl uid. No sonographic Alfaro sign was elicited. IMPRESSION: 1. No hydronephrosis. 2. Atrophic left kidney. 3. Marked bladder wall thickening, a nonspecific finding accentuated by underdistention. 4. Left pleural effusion. 5. Cholelithiasis. ACT 112: Negative or not required by law. Electronically signed by: Dwain Gonzalez M.D. 07/11/2024 3:28 PM
--- NOTE | 2024-07-11 16:13 | Electrocardiogram Report ---
Test Reason : Blood Pressure : */* mmHG Vent. Rate : 81 BPM Atrial Rate : 81 BPM P-R Int : 152 ms QRS Dur : 100 ms QT Int : 394 ms P-R-T Axes : 7 -26 66 degrees QTcB Int : 457 ms Normal sinus rhythm Minimal voltage criteria for LVH, may be normal variant Borderline ECG When compared with ECG of 09-Jul-2024 10:28, QRS axis Shifted left Confirmed by Perry Nelson ([id number]) on 07/11/2024 4:12:29 PM Referred By: REFERRED SELF Confirmed By: Perry Nelson
[2024-07-11] MEDS: carvediloL 25 MG TAB PO SCH (20:15)
[2024-07-11] MEDS: hydrALAZINE 10 MG TAB PO SCH (20:16)
[2024-07-11] MEDS: ACETAMINOPHEN 325 MG TAB PO PRN (23:11)
[2024-07-12] MEDS: ONDANSETRON INJ 2 MG/ML 2 ML VIAL IV PRN (06:20)
[2024-07-12 07:13] LABS: Basophils # (auto) 0.04 K/uL (0.00-0.20); Basophils % (auto) 0.6 %; Eosinophils # (auto) 0.27 K/uL (0.00-0.50); Eosinophils % (auto) 3.9 %; Hematocrit (blood only) 32.3 % (42.0-52.0); Immature Granulocytes # (auto) 0.04 K/uL (0.01-0.20); Immature Granulocytes % (auto) 0.6 %; Lymphocytes # (auto) 0.87 K/uL (1.20-3.40); Lymphocytes % (auto) 12.5 %; Mean Corpuscular Hemoglobin 30.7 pg (25.0-34.0); Mean Corpuscular Hgb Conc 34.1 g/dL (32.0-36.0); Mean Corpuscular Volume 90.2 fL (80.0-100.0); Mean Platelet Volume 10.2 fL (9.4-12.4); Monocytes # (auto) 0.82 K/uL (0.11-0.59); Monocytes % (auto) 11.8 %; Neutrophils # (auto) 4.91 K/uL (1.40-6.50); Neutrophils % (auto) 70.6 %; Platelet Count 150 K/uL (130-400); RDW Coefficient of Variation 14.3 % (11.5-14.5); RDW Standard Deviation 47.3 fL (36.4-46.3); Red Blood Count 3.58 M/uL (4.70-6.10); White Blood Count 6.95 K/ul (4.8-10.8)
[2024-07-12 07:24] LABS: BUN Creatinine Ratio 21.8 (10-20); Calcium 8.9 mg/dl (8.6-10.3); Creatinine Clr Calc Pharmacy 14.2 ml/min; Potassium 4.9 mmol/L (3.5-5.1)
[2024-07-12] MEDS: hydrALAZINE HCL 25 MG TAB PO SCH (08:38)
--- NOTE | 2024-07-12 09:51 | Cardiology Progress Note ---
Date of Service July 12, 2024 Assessment & Plan (1) Hypertensive urgency: (2) Acute kidney injury: (3) Nausea & vomiting: (4) Elevated troponin: (5) ASCVD (arteriosclerotic cardiovascular disease): Plan 89-year-old male admitted with chest pain, anorexia, hypertensive urgency (unable to take medications x 2 or 3 days prior to arrival). 1. Hypertensive urgency with chest pain. Current event appears to be exacerbated by lapse in therapies. Metoprolol changed to carvedilol this admission. Amlodipine increased to 5 mg twice per day. Isordil increased to 4 times per day. Resume Hydralazine 10 mg BID to start 2. Elevated troponin: Flat without evolution. Likely secondary to renal insufficiency, hypertension. Patient with chronic coronary artery disease with preserved LV systolic function. Continue medical management. 3. CKD stage IV: Edema on presentation has resolved with single dose of IV furosemide. Volume status is compensated. 4. Poor PO intake with early satiety, postprandial nausea and emesis, and weight loss. Known large hiatal hernia, gastris, stricture, GERD. Depression is a contributing factor. ? mesenteric ischemia and/or uremia contributing? 07/12/2024. Hypertensive urgency remains an issue with elevated blood pressures at times. Chronic nausea. No acute cardiac complaint Recommendations as already ordered increasing hydralazine for further hypertension control continue other medications. No further cardiac recommendations. Consider offering dietary supplements Please contact with further questions Admission and Anticipated Discharge Date Admission Date: July 09, 2024 Subjective Patient seen and examined, chart, medications, telemetry reviewed. Still nauseated this morning. Blood pressure higher overnight. No chest pain or worsening shortness of breath. Appetite limited but taking medications. No fevers or chills. Urinary catheter still in place Review of Systems Review of Systems: All systems reviewed & are unremarkable except as noted in Subjective Physical Exam Constitutional: + thin; no acute distress Eyes: PERRL, conjunctivae normal, anicteric sclerae ENMT: external ear and nose normal, oropharynx normal Neck: trachea midline, no thyromegaly Respiratory: Auscultation: no rales Cardiovascular: Rate/Rhythm: regular rate and regular rhythm Heart Sounds: normal S1, normal S2 and + murmur (Grade 1/6 systolic murmur, no diastolic) Vessels: no JVD Extremities: no edema Gastrointestinal (Abdomen): normal bowel sounds, soft, nontender, no hepatosplenomegaly Musculoskeletal: no cyanosis or clubbing, extremities motor strength 5/5 Results & Data Vital Signs (Past 12 Hours) Vital Signs Temp Pulse Pulse Resp BP BP Pulse Ox 07/12/24 07:54 36.3 C L 65 19 183/84 H 91 07/12/24 04:04 36.6 C 69 18 186/83 H 92 07/11/24 23:45 36.9 C 62 16 155/72 H 94 07/11/24 22:38 61 07/11/24 21:55 07/11/24 21:53 171/79 H 170/77 H O2 Del Method O2 Flow Rate 07/12/24 07:54 Room Air 07/12/24 04:04 Room Air 07/11/24 23:45 Nasal Cannula 07/11/24 22:38 07/11/24 21:55 Nasal Cannula 2 07/11/24 21:53 Laboratory Results Laboratory Results - last 24 hr 07/11/24 07/11/24 07/12/24 Unknown Unknown 06:33 WBC 6.95 RBC 3.58 L Hgb 11.0 L Hct 32.3 L MCV 90.2 MCH 30.7 MCHC 34.1 RDW Std Deviation 47.3 H RDW Coeff of Jessica 14.3 Plt Count 150 MPV 10.2 Immature Gran % (Auto) 0.6 Neut % (Auto) 70.6 Lymph % (Auto) 12.5 Owsley % (Auto) 11.8 Eos % (Auto) 3.9 Baso % (Auto) 0.6 Neut # (Auto) 4.91 Lymph # (Auto) 0.87 L Owsley # (Auto) 0.82 H Eos # (Auto) 0.27 Baso # (Auto) 0.04 Immature Gran # (Auto) 0.04 Sodium 137 Potassium 4.9 Chloride 109 H Carbon Dioxide 21 Anion Gap 7 BUN 71 H Creatinine 3.25 H Est Cr Clr Drug Dosing 14.2 eGFR 17.60 BUN/Creatinine Ratio 21.8 H Glucose 109 H Calcium 8.9 Urine Color Yellow Urine Appearance Clear Urine pH 5.0 Ur Specific Currie 1.012 Urine Protein Negative Urine Glucose (UA) Negative Urine Ketones Negative Urine Blood Negative Urine Nitrite Negative Urine Bilirubin Negative Urine Urobilinogen Negative Ur Leukocyte Esterase Negative Ur Random Creatinine 78.3 82.4 U Random Total Protein 12.0 H Protein/Creatinin Ratio 0.1 Urine Sodium 58 Urine Potassium 40.3 Urine Chloride 65
--- NOTE | 2024-07-12 13:01 | Nephrology Progress Note ---
Date of Service July 12, 2024 Assessment & Plan Admission and Anticipated Discharge Date Admission Date: July 09, 2024 Subjective Assessment & Plan (1) Acute kidney injury: from baseline creatinine of around 2.5-2.9 creatinine is slightly higher at low 3's but seems to have peaked. however the acute component is not that much as this is predominantly CKD from hypertension as well as vascular disease. he was found to have some urinary retention on the bladder scan so it is reasonable to do renal ultrasound to assess for chronicity of uropathy. in an elderly man with extensive comorbid disease and advanced pre-existing CKD any infection can cause some elevation in creatinine. he did have some shortness of breath and chest pain and possible pneumonia in this is enough to cause rising creatinine. I would not necessarily give him anymore fluid nor any Lasix as he looks fairly euvolemic. avoid nephrotoxic agents including NSAIDs nephrotoxic antibiotics contrast ag ents. daily renal panel and CBC input output charting (2) CKD (chronic kidney disease): last outpatient creatinine was from February 2024 and he already had a creatinine of 2.5 putting him at CKD stage 4 and the cause is multifactorial from hypotension vascular disease and age. He has had multiple canceled appointment with Nephrology and does not appear he has ever seen Nephrology. he would b enefit from having Nephrology follow-up if patient is agreeable (3) CHF (congestive heart failure): he had some chest pain and shortness of breath and does have underlying history of congestive heart failure. However he does not appear to be overtly fluid overloaded at this time and agree with Cardiology about no further Lasix (4) Poorly-controlled hypertension: his blood pressure is now perfectly controlled once his home blood pressure regimen was restarted. This pretty much proves that he was not taking his medications at home as he was supposed to. Cards following S--BP is still off and on high. No new issues. no SOb. Physical Exam Constitutional: + well hydrated; no acute distress Elde rly man Eyes: PERRL, conjunctivae normal, anicteric sclerae ENMT: +hearing deficits. Respiratory: normal respiratory effort. no respiratory distress + diminished lung sounds Cardiovascular: Rate/Rhythm: regular rate and regular rhythm S1 S2 Gastrointestinal (Abdomen): normal bowel sounds, soft, nontender, no hepatosplenomegaly Musculoskeletal: No edema Neurologic: PERRL, EOMI, accommodation nl, no face palsy, no dysarthria Psychiatric: A+Ox3, euthymic affect Results & Data Vital Signs (Past 12 Hours) Vital Signs Temp Pulse Resp BP Pulse Ox O2 Del Method 07/12/24 11:13 36.4 C L 58 L 18 159/72 H 90 Room Air 07/12/24 08:00 Room Air 07/12/24 07:54 36.3 C L 65 19 183/84 H 91 Room Air 07/12/24 04:04 36.6 C 69 18 186/83 H 92 Room Air
--- NOTE | 2024-07-12 13:43 | Hospitalist Progress Note ---
Date of Service July 12, 2024 Assessment & Plan (1) Acute on chronic heart failure with preserved ejection fraction: (2) Acute renal failure superimposed on stage 4 chronic kidney disease: (3) Pneumonia: (4) Hypertension, uncontrolled: (5) BPH with urinary obstruction: (6) Decreased appetite: (7) Vascular disease, peripheral: (8) CAD (coronary artery disease): Plan Patient is an 89-year-old gentleman who presents with acute on chronic heart failure and acute on chronic renal failure with possible underlying pneumonia. Patient with significantly uncontrolled hypertension at the time of admission with concern for possible compliance issues with his home blood pressure medications. Patient also has significantly decreased appetite. Patient being treated with antibiotics for possible pneumonia, transition to oral Ceftin for another 2 days to complete a 5-day course of treatment Overall patient appears to be euvolemic continue to monitor volume status no additional diuretics at this time Renal function plateauing, suspect progressive due to hypertensive disease. Continue to hold nephrotoxins. Blood pressure starting to improve getting patient back on his usual home regimen. Transition isosorbide to 3 times daily dosing more for improved compliance. Highly concerned patient will not be compliant with 4 times a day dosing. Increase hydralazine for better blood pressure control Continue Coreg and Norvasc Patient upon presentation had evidence of some urinary retention. Garcia catheter placed. Patient expecting to go home without Garcia catheter, trial of voiding today. Bladder scan with straight cath as needed for postvoid residual greater than 4 to 50 cc. Continue to monitor renal function Reviewed cardiology's and nephrology recommendations Trial of Remeron for anorexia Phone update with patient's daughter, Irma. Reports patient has not been eating or drinking well for over a year. Understands BPH may be progressed the point where he will need a chronic Garcia. She is confident that he can care for himself at home, however concerned that he will try and care for his who needs 24-hour care. Family has been providing this and is working on further coordination of care for the patient's . Admission and Anticipated Discharge Date Admission Date: July 09, 2024 Subjective Patient states that he really has no appetite. Denies nausea to me. Just has no real desire to eat. No chest pain or shortness of breath. Physical Exam Physical Exam: Constitutional: Alert, nontoxic HEENT: Mucous membranes moist. Lungs: Decreased, crackles at bases CV: S1-S2, regular Abdomen: Soft, nontender, nondistended Extremities: No significant edema Neuro: No focal deficits Psych: Cooperative, slightly depressed and affect Results & Data Results & Data Vital Signs (Past 12 Hours) Vital Signs Temp Pulse Resp BP Pulse Ox O2 Del Method 07/12/24 11:13 36.4 C L 58 L 18 159/72 H 90 Room Air 07/12/24 08:00 Room Air 07/12/24 07:54 36.3 C L 65 19 183/84 H 91 Room Air 07/12/24 04:04 36.6 C 69 18 186/83 H 92 Room Air Diagnostic Findings Reviewed imaging, laboratory and diagnostic studies. Pertinent findings as below. WBC 6.9 Hemoglobin 11.0 Creatinine 3.25 Renal ultrasound negative for hydronephrosis, atrophic left kidney, left pleural effusion
[2024-07-12] MEDS: ISOSORBIDE DINITRATE 5 MG TAB PO SCH (16:59)
[2024-07-12] MEDS: POLYETHYLENE (MIRALAX) 17 GM PACK PO SCH (17:16)
[2024-07-12] MEDS: traMADol HCL 50 MG TABLET PO PRN (18:41)
[2024-07-12] MEDS: MIRTAZAPINE TAB 15 MG TAB PO SCH (20:04)
[2024-07-12] MEDS: SENNA 8.6 MG TAB PO SCH (20:07)
--- NOTE | 2024-07-13 02:17 | Ultrasound Report ---
EXAM: US gallbladder CLINICAL HISTORY: Gallstones, RUQ pain Panc: Hard to visualize Liver: 14.1cm GB: Multiple mobile stones seen. NEG ALFARO''S GB Wall: .2cm ? trace pericholecystic fluid seen CBD: .3cm Right Kidney: 8.7cm no hydro Cysts seen. Largest UP: 3 x 3 x 2,8cm TECHNIQUE: Ultrasound examination of the RUQ was performed using a high-frequency transducer. Scanning was performed with the patient in supine position. The following structures were specifically evaluated: COMPARISON: 07/11/2024. FINDINGS: Liver: Liver size: Difficult to visualize liver. The liver appears normal in size measuring 14.1 cm with homogeneous echotexture. No evidence of focal lesions, cysts, or masses. Hepatic vasculature appears normal. Gallbladder: Gallbladder size: contains multiple mobile gallstones of varying sizes measuring up to 1.5cm. The gallbladder wall measure 2-3mm A mild trace of pericholecystic fluid was noted. Alfaro sign is negative Biliary Tree: Common bile duct diameter: measure 3mm. The common bile duct is within normal limits in caliber and not dilated. No evidence of choledocholithiasis or biliary obstruction. Right Kidney: Right kidney size: Measure 8.7cm in length. Right kidney appears normal in size with preserved corticomedullary differentiation. No evidence of hydronephrosis or masses. A few simple renal cysts were noted, the largest on the upper pole measuring up to 3cm. Panreas: Not seen due to bowel gases IMPRESSION: 1. Slight interval regression in the GB wall edema measuring 2-3mm, in comparison to the prior US on 07/11/2024. 2. The rest of the findings are stable. 3. Multiple mobile gallstones measuring up to 1.5cm and a mild trace of pericholecystic fluid was noted. 4. Clinical correlation is recommended. Electronically signed by Jeff Stuart 07-13-2024 02:16 AM
[2024-07-13 08:32] LABS: Albumin Level 3.4 gm/dl (3.4-5.0); BUN Creatinine Ratio 18.6 (10-20); Bilirubin,Total 0.3 mg/dl (0.2-1.0); Calcium 8.4 mg/dl (8.6-10.3); Creatinine Clr Calc Pharmacy 10.1 ml/min; Magnesium 2.4 mg/dl (1.7-2.4); Potassium 5.8 mmol/L (3.5-5.1); Total Protein 5.4 gm/dl (6.0-8.3)
--- NOTE | 2024-07-13 09:16 | Surgery Consultation ---
Date of Consultation July 13, 2024 Assessment & Plan (1) Gallstones: His ultrasound images and results were personally viewed and interpreted by myself He has no signs of cholecystitis on ultrasound, just many gallstones His physical exam is not consistent with acute cholecystitis, HIDA scans been ordered by the medical team and we will follow-up these results With all of his medical problems, he is certainly not a great candidate for cholecystectomy He is also actively on Plavix so this will need to be held if the HIDA scan was positive Will follow-up the HIDA scan results and give further treatment recommendations (2) Hypertension, uncontrolled: (3) Acute renal failure superimposed on stage 4 chronic kidney disease: (4) ASCVD (arteriosclerotic cardiovascular disease): History of Present Illness Reason for Consultation: Symptomatic gallstones versus cholecystitis Attending Physician: Michael Bianchi, DO History of Present Illness This is an 89-year-old male who was admitted 4 days ago with chest pain. He has a history of chronic kidney disease, TIA, CAD with open heart surgery and multiple stents for which she takes Plavix and aspirin. Surgery was consulted for concern of symptomatic gallstones versus cholecystitis. Patient denies any abdominal pain. He just states his appetite is not as good as it should be. He denies any nausea or vomiting. He denies any scleral icterus, jaundice, tea colored urine, acholic stools. He denies any previous abdominal surgeries. Allergies Allergy/AdvReac Type Severity Reaction Status Date / Time ciprofloxacin [From Cipro] AdvReac Vomiting Verified 09/19/20 10:27 Iodinated Contrast Media AdvReac Unknown Verified 09/19/20 10:27 Home Medications Medication Instructions Recorded Confirmed Type acetaminophen 325 mg tablet 325 mg PO QID PRN Pain 09/16/20 07/09/24 History (Tylenol) albuterol 90 mcg/actuation aerosol 90 mcg inhalation UD PRN sob 09/16/20 07/09/24 History inhaler amlodipine 5 mg tablet (Norvasc) 5 mg PO BID 09/16/20 07/09/24 History aspirin 81 mg tablet,delayed 81 mg PO DAILY 09/16/20 07/09/24 History release clopidogrel 75 mg tablet (Plavix) 75 mg PO QAM 09/16/20 07/09/24 History finasteride 5 mg tablet 5 mg PO QAM 09/16/20 07/09/24 History fluticasone 250 mcg-salmeterol 50 1 inh inhalation BID 09/16/20 07/09/24 History mcg/dose blistr powdr for inhalation (Advair Diskus) lisinopril 5 mg tablet 5 mg PO QAM 09/16/20 07/09/24 History metoprolol succinate 25 mg 25 mg PO BID 09/16/20 07/09/24 History tablet,extended release 24 hr nitroglycerin 0.4 mg sublingual 0.4 mg sublingual UD PRN Chest Pain 09/16/20 07/09/24 History tablet (Nitrostat) pantoprazole 40 mg tablet,delayed 40 mg PO QAM 09/16/20 07/09/24 History release (Protonix) rosuvastatin 20 mg tablet (Crestor) 20 mg PO QPM 09/16/20 07/09/24 History tamsulosin 0.4 mg capsule 0.4 mg PO QPM 09/16/20 07/09/24 History hydralazine 10 mg tablet 10 mg PO TID 07/09/24 07/09/24 History isosorbide dinitrate 5 mg tablet 5 mg PO QID 07/09/24 07/09/24 History Patient History Medical History Slow to wake up after anesthesia Vascular disease, peripheral BPH (benign prostatic hyperplasia) Hiatal hernia Dysphagia Belching continuous x several hours after eating/drinking GERD (gastroesophageal reflux disease) History of kidney cancer 2010 cryoablation therapy; follows with [facility] nephrology 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 Lai/Dr. Mancilla History of TIA (transient ischemic attack) 2018 History of myocardial infarction 1992 Hyperlipemia HTN (hypertension) COPD (chronic obstructive pulmonary disease) Surgical History History of tooth extraction History of vascular surgery stent LLE History of esophagogastroduodenoscopy (EGD) History of colonoscopy History of prior ablation treatment History of heart artery stent "quite a few" (2 placed 03/2019 and mult prior to) History of cardiac catheterization most recent 03/2019 at [facility] - 2 stents placed; mult caths at [facility]; mult stents (unable to recall specifics) History of coronary artery bypass graft x 3 1996 Family History Other No family history of adverse response to anesthesia Social History Smoking Status: Former smoker Second Hand Exposure: No; Do You Dip or Chew Tobacco: No; Hx Alcohol Use: No Hx Substance Use: No Preferred Language: [place]ican Communication Ability: Effective 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 Required: No Beliefs That Will Affect Care: None Current Living Situation: Spouse Feels Safe at Home: Yes Safety Concerns: Feels Safe At This Time Assistive Devices: None Review of Systems Constitutional: no fever and no chills Eyes: no blind spots and no dry eyes Ear, Nose, Mouth, Throat: no ear pain and no hearing loss Respiratory: no cough and no dyspnea Cardiovascular: + chest pain; no dyspnea on exertion Gastrointestinal: no abdominal pain, no nausea, no vomiting, no constipation and no diarrhea/loose stools Genitourinary: no dysuria or no urinary incontinence Musculoskeletal: no back pain and no neck pain Integumentary: no acne, no skin ulcer and no erythema Neurologic: no gait abnormality and no headache(s) Psychiatric: no behavioral changes and no depression Hematologic / Lymphatic: no easy bleeding and no easy bruising On Plavix Physical Exam Constitutional: WD/WN, vitals as above Eyes: PERRL, conjunctivae normal, anicteric sclerae ENMT: external ear and nose normal, oropharynx normal Neck: trachea midline, no thyromegaly Respiratory: normal respiratory effort, lungs clear to auscultation Cardiovascular: RRR, no murmur, no edema Gastrointestinal (Abdomen): Inspection/Auscultation: abdomen normal to inspection; abdomen not distended Percussion/Palpation: + abdomen tender (Mild epigastric) and abdomen soft; no guarding and no hernia Musculoskeletal: no cyanosis or clubbing, extremities motor strength 5/5 Skin: no rashes, warm and dry Neurologic: PERRL, EOMI, accommodation nl, no face palsy, no dysarthria Psychiatric: A+Ox3, euthymic affect Results & Data Vital Signs (Past 12 Hours) Vital Signs Temp Pulse Resp BP Pulse Ox O2 Del Method O2 Flow Rate 07/13/24 07:44 Nasal Cannula 3 07/13/24 07:20 36.8 C 60 20 142/62 H 93 Nasal Cannula 3 07/13/24 00:14 Nasal Cannula 3.5 PG Care Time/CCT Total # of Minutes Spent Total Time Spent with Patient: Total time spent is greater than 50% in coordination of care (as documented) at patient's floor/unit and/or counseling patient: Coding Level of Care Code 44246 INT INP/OBS CARE 3/75MIN Diagnoses Gallstones K80.20 Hypertension, uncontrolled I10 Acute renal failure superimposed on stage 4 chronic kidney disease N17.9; N18.4 ASCVD (arteriosclerotic cardiovascular disease) I25.10
--- NOTE | 2024-07-13 11:01 | Electrocardiogram Report ---
Test Reason : Blood Pressure : */* mmHG Vent. Rate : 66 BPM Atrial Rate : 66 BPM P-R Int : 152 ms QRS Dur : 104 ms QT Int : 432 ms P-R-T Axes : -5 42 78 degrees QTcB Int : 452 ms Normal sinus rhythm Normal ECG When compared with ECG of 09-Jul-2024 13:44, QRS axis Shifted right Confirmed by Perry Nelson ([id number]) on 07/13/2024 11:00:57 AM Referred By: REFERRED SELF Confirmed By: ePrry Nelson
--- NOTE | 2024-07-13 12:27 | Nuclear Medicine Report ---
NM hepatobiliary CLINICAL HISTORY: Cholelithiasis TECHNIQUE: Following the intravenous injection of 5 mCi of Tc-99m labeled Technetium 99m mebrofenin, multiple images of the upper abdomen were obtained in the anterior projection with uptake measuremen ts of the gallbladder obtained. Comparison: Comparison is made to right upper quadrant ultrasound 07/13/2024 FINDINGS: Sequential images demonstrate normal uptake in the liver, common bile duct, gallbladder, an d small bowel. No defects in uptake are identified. Subsequent imaging after the administration of si ncalide demonstrates prompt elimination of the radiotracer from the gallbladder. IMPRESSION: Normal uptake of contrast by the gallbladder. No evidence of acute cholecystitis. Reference: Normal gallbladder ejection fraction is greater than 33%. ACT 112: Negative or not required by law. Electronically signed by: Trevor Peña M.D. 07/13/2024 12:26 PM
--- NOTE | 2024-07-13 13:29 | Hospitalist Progress Note ---
Date of Service July 13, 2024 Assessment & Plan (1) Acute renal failure superimposed on stage 4 chronic kidney disease: (2) Acute on chronic heart failure with preserved ejection fraction: (3) Pneumonia: (4) Hypertension, uncontrolled: (5) BPH with urinary obstruction: (6) Decreased appetite: (7) Vascular disease, peripheral: (8) CAD (coronary artery disease): (9) Cholelithiasis: (10) Hyperkalemia: (11) Hiatal hernia: (12) Esophageal dysmotility: Plan Patient presented with poorly controlled hypertension, suspected CHF and pneumonia. Patient received some diuresis early on in his hospitalization as well as antibiotics for presumed pneumonia. Patient had evidence of acute on chronic renal failure that has acutely worsened overnight. Patient has not received diuretics for couple days, concern patient now be be on the dry side. Give 500 cc fluid bolus as well as continuing normal saline at a low rate. Recheck BMP later today. With progressive renal dysfunction, will reinsert Garcia catheter for accurate output. Bladder scan only revealing 240 cc now Monitor laboratory studies Hold nephrotoxins Blood pressure has seem to be improved with his current regimen. Changes just instituted yesterday to some of his medications. Will continue to monitor on this regimen before making additional changes to his blood pressure medications. Continue therapies Nephrology to continue to follow and manage kidney dysfunction. Patient now having some evidence of hyperkalemia. With progression of her renal dysfunction may need hemodialysis. Phone update to patient's daughter, Irma. She is aware of his chronic medical issues including cholelithiasis, hiatal hernia. Also aware that he has not been eating and drinking well for months. They have never really had a conversation about hemodialysis. She states that she will discuss that with him this evening when she comes by after work. Admission and Anticipated Discharge Date Admission Date: July 09, 2024 Subjective Patient again states he has no appetite but denies nausea. No real significant abdominal pain. Has not really had any oral intake over the last 24 hours. Physical Exam Physical Exam: Constitutional: Alert, nontoxic HEENT: Mucous membranes dry Lungs: Decreased breath sounds CV: S1-S2, regular Abdomen: Soft, nontender, nondistended Extremities: No significant edema Neuro: No focal deficits, generalized weakness Psych: Cooperative, normal mood Results & Data Results & Data Vital Signs (Past 12 Hours) Vital Signs Temp Pulse Resp BP Pulse Ox O2 Del Method O2 Flow Rate 12/26/24 12:28 36.9 C 62 20 174/69 H 93 Room Air 07/13/24 07:44 Nasal Cannula 3 07/13/24 07:20 36.8 C 60 20 142/62 H 93 Nasal Cannula 3 Diagnostic Findings Reviewed imaging, laboratory and diagnostic studies. Pertinent findings as below. Nursing reports no urinary output since yesterday after removing Garcia catheter, bladder scan for 240 cc Sodium 137 Potassium 5.8 Creatinine 4.5, significantly increased from yesterday LFTs unremarkable HIDA scan shows normal function and normal ejection fraction greater than 33% Gallbladder ultrasound shows multiple gallstones mild/trace pericholecystic fluid no evidence of bile duct obstruction
[2024-07-13] MEDS: SODIUM CHLORIDE 0.9% 500 ML IV ONE (13:44)
--- NOTE | 2024-07-13 14:07 | Nephrology Progress Note ---
Date of Service July 13, 2024 Assessment & Plan (1) Acute kidney injury: Plan: further abruptly worsening stage one ?oliguric ROSALBA on CKD4 with baseline creatinine of around around mid 2's since April 2022, though renal function is labile and ranges 2.2-2.9 this timeframe. he was referred to nephro for February 2024 appt to est care but cancelled appt. Seen by cardiology earlier this month where he presented w/ SBP 210s, averaging 180s on home monitoring and not taking medications as rx'd. Renal u/s 07/11 w/o obstruction and w/ atrophic L kidney, and w/ multiple BL renal cysts; did have urinary retention on admission bladder scan and on 07/13 garcia had to be reinserted d/t same. this is predominantly CKD from hypertension as well as vascular disease. -in an elderly man with extensive comorbid disease and advanced pre-existing CKD any infection can cause some elevation in creatinine. he did have some shortness of breath and chest pain and possible pneumonia in this is enough to cause rising creatinine. euvolemic yesterday and then some obstruction > ? if this explains change in function or not >> HTN consistently uncontrolled and increased 02 needs today -cont to avoid nephrotoxic agents including NSAIDs nephrotoxic antibiotics contrast agents. -daily renal panel and CBC -garcia replaced > cont strict I/O -agree w/ 500 mL bolus then 500 mL total NS and repeat bmp > result shows worsening renal function and w/ dyspnea will stop IVF -agree w/ low K diet >started lokelma tid as well which should continue Cannot r/o need to discuss dialysis but not emergently needed this evening. his son is a retired seal mixing operator w/ [employer]. Care coordinated repeatedly w/ RNs from 2 shifts and w/ Dr Bianchi through the day regarding IV fluid supplementation, garcia status, UOP rate, lab results; we are in agreement. (2) CHF (congestive heart failure): Plan: pt does have underlying history of combined systolic/diastolic heart failure. last lasix dose 07/10 40 mg IV. no chest pain currently but concerning for increased WOB ; no home 02 and currently on 3L >>stop IV fluid >check CXR >PRN lasix if dyspnea worsens this PM (3) Poorly-controlled hypertension: Plan: his blood pressure is now better controlled once his home blood pressure regimen was restarted. This pretty much proves that he was not taking his medications at home as he was supposed to; note on no diuretics as OP. Given that he's lived in 180s systolic for months, target SBP 140-150s for now (4) CKD (chronic kidney disease): Plan: last outpatient creatinine was from February 2024 and he already had a creatinine of 2.5 putting him at CKD stage 4 and the cause is multifactorial from hypertension vascular disease and age. Also w/ atrophic L kidney, ? remote vascular issue. He has never seen nephro as OP and cx'd appt made for him in February 2024. he would benefit from having Nephrology follow-up if agreeable Admission and Anticipated Discharge Date Admission Date: July 09, 2024 Subjective garcia removed 1600 yesterday and no voiding since; midday 240 ML on bladder scan; garcia replaced. pt for 500 mL NS bolus and 500 mL of NS at 50 mL hourly thereafter; as of 1629, 200 UOP only after garcia placement. changed to low K diet. pt denies dyspnea, increased WOB, orthopnea, cough; no n/v, no uncontrolled abd pain Review of Systems 2 Review of Systems: All systems reviewed & are unremarkable except as noted in Subjective Physical Exam 2 Constitutional: well developed, + acute distress (slightly increased WOB, very mild distress), + thin, + frail appearing and cooperative Eyes: EOM intact bilaterally ENMT: Mouth: + dry oral mucous membranes Neck: no nuchal rigidity Respiratory: + labored breathing, able to speak in co mplete sentences, + tachypneic, + prolonged expiratory phase and + paradoxical thoraco-abdominal movement; no cough Auscultation: + diminished lung sounds and + wheezes (occasional anterior exp ); no crackles Cardiovascular: RRR, no murmur, no edema Gastrointestinal (Abdomen): Inspection/Auscultation: normal bowel sounds P ercussion/Palpation: abdomen soft Musculoskeletal: Extremities: strength 5/5 throughout Skin: no rashes, warm and dry Neurologic: [place], fluent speech, no tremor Psychiatric: Orientation: alert and oriented x 3 Results & Data Vital Signs (Past 12 Hours) Vital Signs Temp Pulse Resp BP Pulse Ox O2 Del Method O2 Flow Rate 07/13/24 12:28 36.9 C 62 20 174/69 H 93 Room Air 07/13/24 07:44 Nasal Cannula 3 07/13/24 07:20 36.8 C 60 20 142/62 H 93 Nasal Cannula 3 Laboratory Results 07/12/24 06:33 07/13/24 07:35
[2024-07-13] MEDS: SODIUM CHLORIDE 0.9% 500 ML IV SCH (14:28)
[2024-07-13] MEDS: cefUROXime axetil 500 MG TAB PO SCH (14:38)
--- NOTE | 2024-07-13 14:46 | Communication Note ---
Date of Service: July 13, 2024 Patient underwent HIDA study today, it returned negative for acute cholecystitis. Therefore no plans for inpatient surgical intervention. He is also a poor elective cholecystectomy candidate given multiple co-morbidities. We will sign off at this time, please call with any questions/concerns. He may resume a diet.
[2024-07-13] MEDS: LIDOCAINE 2% JELLY 5 ML TUBE EXT ONE (16:58)
[2024-07-13 18:36] LABS: BUN Creatinine Ratio 18.5 (10-20); Calcium 8.5 mg/dl (8.6-10.3); Creatinine Clr Calc Pharmacy 9.6 ml/min; Potassium 5.6 mmol/L (3.5-5.1)
[2024-07-13] MEDS: SODIUM ZIRCONIUM CYCLOSILICATE 10 GM PACKET PO SCH (19:24)
--- NOTE | 2024-07-13 19:37 | Communication Note ---
Date of Service: July 13, 2024 CXR this evening reviewed; report pending. c/w increasing plm vasc congestion, suspect R pleural effusion; appears worse than admission. IVF stopped; renal u/s reviewed > atrophic L kidney, so minimal renal reserves -would not give lasix at this time unless resp status worsens in which case suggest consideration of lasix 60 mg IV x 1 -cont lokelma -await labs in AM -may need to discuss dialysis in AM pending his clinical status
--- NOTE | 2024-07-13 20:01 | XRay Report ---
Exam(s): XR CXR 1 VIEW EXAM: XR Chest, 1 View CLINICAL HISTORY: Reason for exam: hypoxia > eval for HF; ?PNA progression. TECHNIQUE: Frontal view of the chest. COMPARISON: 07/09/24 FINDINGS: Lungs: Increasing vascular congestion and interstitial prominence. Worsening right greater than left lower lung zone airspace opacities, which may represent edema and/or pneumonia. Pleural space: Unremarkable. No pneumothorax. Heart: Sternotomy. Stable heart size. Bones/joints: High riding left humeral head suggesting rotator cuff tear. No acute osseous findings as visualized. Small effusions. Vasculature: Calcified thoracic aorta. IMPRESSION: 1. Increasing vascular congestion and interstitial prominence. Appearance may represent pulmonary edema. 2. Worsening right greater than left lower lung zone airspace opacities, which may represent edema and/or pneumonia. 3. Small effusions. Electronically signed by: Анна Zaman M.D. 07/13/24 20:00 PM
[2024-07-13] MEDS: ALBUTEROL HFA 8 GM INHALER INH PRN (21:33)
[2024-07-13] MEDS: NITROGLYCERIN SL 0.4 MG/TAB TAB SL PRN (22:43)
[2024-07-13] MEDS: FUROSEMIDE INJ 20 MG/2 ML VIAL IV ONE (23:02)
--- NOTE | 2024-07-14 00:04 | CT Scan Report ---
Exam(s): CT CHEST Without Contrast EXAM: CT Chest Without Intravenous Contrast CLINICAL HISTORY: Reason for exam: chf/pneumonia. TECHNIQUE: Axial computed tomography images of the chest without intravenous contrast. CTDI is 8.42 mGy and DLP is 302.03 mGy-cm. Automated exposure control was utilized for the study. A dose lowering technique was utilized adhering to the principles of ALARA. COMPARISON: No relevant prior studies available. FINDINGS: Lungs: Emphysema. Confluent airspace consolidations in the dependent lower lobes bilaterally, favored atelectasis. Dependent septal thickening and ground-glass lung attenuation the upper lobes, possibly combination of atelectasis and edema. Calcified granulomas right lower lobe. Pleural space: Moderate pleural effusions. No pneumothorax. Heart: Coronary artery atherosclerosis. No cardiomegaly or pericardial effusion. Bones/joints: Sternotomy. Osteopenia. No acute fracture or dislocation. Soft tissues: Unremarkable. Vasculature: Calcified thoracic aorta without aneurysm. Normal caliber main pulmonary artery. Lymph nodes: Unremarkable. No enlarged lymph nodes. Gallbladder and bile ducts: Cholelithiasis. Kidneys and ureters: Visualized portion of the left kidney appears atrophic. Intraperitoneal space: Trace perihepatic ascites. IMPRESSION: 1. Moderate pleural effusions. 2. Confluent airspace consolidations in the dependent lower lobes bilaterally, favored compressive atelectasis. Intercurrent pneumonia cannot be completely excluded. 3. Dependent septal thickening and ground-glass lung attenuation the upper lobes, possibly combination of atelectasis and edema. 4. Visualized portion of the left kidney appears atrophic. Electronically signed by: Анна Zaman M.D. 07/14/24 00:03 AM
[2024-07-14] MEDS: MoRPHine SULFATE 2 MG/ML CARP IV STA (01:46)
[2024-07-14] MEDS: LEVALBUTEROL HCL 0.63 MG/3 ML NEB NEB PRN (02:05)
[2024-07-14 06:23] LABS: Basophils # (auto) 0.03 K/uL (0.00-0.20); Basophils % (auto) 0.5 %; Eosinophils # (auto) 0.23 K/uL (0.00-0.50); Eosinophils % (auto) 3.5 %; Hematocrit (blood only) 29.9 % (42.0-52.0); Hemoglobin 10.1 g/dl (14.0-18.0); Immature Granulocytes # (auto) 0.03 K/uL (0.01-0.20); Immature Granulocytes % (auto) 0.5 %; Lymphocytes # (auto) 0.84 K/uL (1.20-3.40); Lymphocytes % (auto) 12.7 %; Mean Corpuscular Hemoglobin 31.4 pg (25.0-34.0); Mean Corpuscular Hgb Conc 33.8 g/dL (32.0-36.0); Mean Corpuscular Volume 92.9 fL (80.0-100.0); Monocytes # (auto) 0.78 K/uL (0.11-0.59); Monocytes % (auto) 11.8 %; Neutrophils # (auto) 4.72 K/uL (1.40-6.50); Platelet Count 138 K/uL (130-400); RDW Coefficient of Variation 14.8 % (11.5-14.5); Red Blood Count 3.22 M/uL (4.70-6.10); White Blood Count 6.63 K/ul (4.8-10.8)
[2024-07-14 06:48] LABS: BUN Creatinine Ratio 17.1 (10-20); Calcium 8.4 mg/dl (8.6-10.3); Magnesium 2.4 mg/dl (1.7-2.4); Potassium 5.7 mmol/L (3.5-5.1)
--- NOTE | 2024-07-14 07:07 | Hospitalist Progress Note ---
Date of Service July 14, 2024 Assessment & Plan (1) Acute renal failure superimposed on stage 4 chronic kidney disease: (2) Acute on chronic heart failure with preserved ejection fraction: (3) Pneumonia: (4) Hypertension, uncontrolled: (5) BPH with urinary obstruction: (6) Decreased appetite: (7) Vascular disease, peripheral: (8) CAD (coronary artery disease): (9) Cholelithiasis: (10) Hyperkalemia: (11) Hiatal hernia: (12) Esophageal dysmotility: Plan Mr. Quinn is an 89-year-old man with history of CAD status post multiple stents and CABG, PAD status post bilateral common iliac stents, TIA, bilateral carotid stenosis, CKD 4, status post left kidney cryoablation, COPD, GERD and other medical problems who presented on 07/09 due to chest pain and treated for acute on chronic heart failure with preserved ef and possible pneumonia. Imaging revealed gallstones and iso poor appetite, gen surgery consulted. Ultimately HIDA scan negative for acute cholecystitis and patient poor elective surgical candidate at this time. Patient's course marked by progressive decline in renal function with hyperkalemia and oliguri as well as worsening hypoxia iso volume overload. Family discussion regarding HD this afternoon. #ROSALBA on CKD IV #Atrophic left kident #multiple renal cysts baseline has ranged 2.2-2.9 Nephrology following -initially attempted fluid resuscitation, however, worsening volume overload -Lokelma started and continued iso hyperkalemia -Avoid nephrotoxins -Low K diet -Question of possible dialysis #Acute hypoxic resp failure iso volume overload #Bilateral pleural effusions #Possible Pneumonia On 6 L NC, no reported distress, declined bipap likely to require HD for volume management on cefuroxime (ceftin) daily #Elevated troponin iso renal failure no chest pain reported, troponin flat at this time monitor on tele iso hyperkalemia #Acute on Chronic CHF, resolved #obstructive CAD s/p CABG 1996, CHARMAINE 2018 #Hypertensive urgency ECHO 55-60% 07/10 High sensitive troponin of 52 on admission with no delta difference BNP elevated to 1400 Diuretics held 2/2 progressive renal failure continue on coreg, amlodipine and hydralazine TID continue imdur continue asa and plavix continue statin #Cholelithiasis #Poor appetite General surgery consulted, HIDA scane negative poor elective surgical candidate Encourage po GERDcontinue on home PPI COPDcontinue home inhalers Code status: Full DVT ppx: Hep sq Admission and Anticipated Discharge Date Admission Date: July 09, 2024 Subjective worsening hypoxia overnight, did not tolerate bipap Patient reports mixed feelings over dialysis at this time Denies any chest pain and reports improvement in SOB after sitting up for sometime Physical Exam Constitutional: WD/WN, vitals as above Respiratory: diminished bilateral basilar breath sounds, however, no crackles and good movement otherwise Cardiovascular: RRR, no murmur, no edema Results & Data Results & Data Vital Signs (Past 12 Hours) Vital Signs Temp Pulse Pulse Resp BP BP Pulse Ox 07/14/24 03:16 61 18 93 07/14/24 03:00 07/14/24 02:46 36.4 C L 62 157/75 H 89 L 07/14/24 02:06 63 18 90 07/14/24 01:51 66 158/69 H 90 07/13/24 20:30 36.4 C L 55 L 18 142/65 H 90 07/13/24 19:20 O2 Del Method O2 Flow Rate FiO2 07/14/24 03:16 30 07/14/24 03:00 Nasal Cannula 6 07/14/24 02:46 Nasal Cannula 6 07/14/24 02:06 Nasal Cannula 6 07/14/24 01:51 Nasal Cannula 6 07/13/24 20:30 Nasal Cannula 4 07/13/24 19:20 Nasal Cannula 3 Laboratory Results Short CBC 07/14/24 Range/Units 05:59 WBC 6.63 (4.8-10.8) K/ul Hgb 10.1 L (14.0-18.0) g/dl Hct 29.9 L (42.0-52.0) % Plt Count 138 (130-400) K/uL BMP 07/13/24 07/13/24 07/14/24 07:35 16:55 05:59 Sodium 137 134 L 137 Potassium 5.8 H 5.6 H 5.7 H Chloride 109 H 108 H 109 H Carbon Dioxide 21 18 L 17 L BUN 85 H 89 H 98 H Creatinine 4.57 H* D 4.80 H* 5.73 H* D Glucose 89 119 H 81 Calcium 8.4 L 8.5 L 8.4 L Liver Function 07/13/24 Range/Units 07:35 Total Bilirubin 0.3 (0.2-1.0) mg/dl Direct Bilirubin 0.0 (0-0.2) mg/dl AST 9 L (13-39) U/L ALT 6 L (7-52) U/L Alkaline Phosphatase 40 (34-104) U/L Albumin 3.4 (3.4-5.0) gm/dl Medications Administered Home Medications Medication Instructions Recorded Confirmed Last Taken acetaminophen 325 mg tablet 325 mg PO QID PRN Pain 09/16/20 07/09/24 09/17/20 (Tylenol) albuterol 90 mcg/actuation aerosol 90 mcg inhalation UD PRN sob 09/16/20 07/09/24 07/09/24 inhaler amlodipine 5 mg tablet (Norvasc) 5 mg PO BID 09/16/20 07/09/24 07/07/24 aspirin 81 mg tablet,delayed 81 mg PO DAILY 09/16/20 07/09/24 07/07/24 release clopidogrel 75 mg tablet (Plavix) 75 mg PO QAM 09/16/20 07/09/24 07/07/24 finasteride 5 mg tablet 5 mg PO QAM 09/16/20 07/09/24 07/07/24 fluticasone 250 mcg-salmeterol 50 1 inh inhalation BID 09/16/20 07/09/24 Unknown mcg/dose blistr powdr for inhalation (Advair Diskus) lisinopril 5 mg tablet 5 mg PO QAM 09/16/20 07/09/24 07/07/24 metoprolol succinate 25 mg 25 mg PO BID 09/16/20 07/09/24 07/07/24 tablet,extended release 24 hr nitroglycerin 0.4 mg sublingual 0.4 mg sublingual UD PRN Chest Pain 09/16/20 07/09/24 07/09/24 tablet (Nitrostat) pantoprazole 40 mg tablet,delayed 40 mg PO QAM 09/16/20 07/09/24 07/07/24 release (Protonix) rosuvastatin 20 mg tablet (Crestor) 20 mg PO QPM 09/16/20 07/09/24 07/07/24 tamsulosin 0.4 mg capsule 0.4 mg PO QPM 09/16/20 07/09/24 07/07/24 hydralazine 10 mg tablet 10 mg PO TID 07/09/24 07/09/24 07/07/24 isosorbide dinitrate 5 mg tablet 5 mg PO QID 07/09/24 07/09/24 07/07/24 Active Medications Generic Name Dose Route Start Last Admin Trade Name Freq PRN Reason Stop Dose Admin Acetaminophen 650 mg 07/09/24 14:49 07/12/24 15:48 Acetaminophen 325 Mg Tab PO 08/08/24 14:48 650 mg QID PRN Administration Pain Albuterol 1 puffs 07/13/24 21:29 07/13/24 21:33 Albuterol Hfa 8 Gm Inhaler INH 08/08/24 14:59 1 puffs Q4H PRN Administration sob Amlodipine Besylate 5 mg 07/09/24 21:00 07/13/24 21:22 Amlodipine Besylate 5 Mg Tab PO 08/08/24 20:59 5 mg BID GERALDINE Administration Aspirin 81 mg 07/10/24 09:00 07/13/24 21:23 Aspirin 81 Mg Ectab PO 08/09/24 08:59 81 mg BID GERALDINE Administration Carvedilol 25 mg 07/11/24 21:00 07/13/24 16:46 Carvedilol 25 Mg Tab PO 08/10/24 20:59 25 mg BIDM GERALDINE Administration Cefuroxime Axetil 500 mg 07/13/24 09:00 07/13/24 14:38 Cefuroxime Axetil 500 Mg Tab PO 07/14/24 11:00 500 mg DAILY GERALDINE Administration Clopidogrel Bisulfate 75 mg 07/10/24 09:00 07/13/24 12:39 Clopidogrel Bisulfate 75 Mg Tab PO 08/09/24 08:59 75 mg QAM GERALDINE Administration Finasteride 5 mg 07/10/24 09:00 07/13/24 12:38 Finasteride 5 Mg Tab PO 08/09/24 08:59 5 mg QAM GERALDINE Administration Fluticasone/Vilanterol 1 puffs 07/10/24 09:00 07/13/24 12:39 Fluticasone/Vilanterol 200/25mcg 14 Puffs/Inhaler INH 08/09/24 08:59 1 puffs DAILY GERALDINE Administration Heparin Sodium (Porcine) 5,000 units 07/09/24 14:49 07/14/24 06:12 Heparin Sod 5,000 Unit/0.5 Ml Vial SQ 08/08/24 14:48 Not Given Q8 GERALDINE Hydralazine HCl 25 mg 07/12/24 09:00 07/13/24 21:23 Hydralazine Hcl 25 Mg Tab PO 08/11/24 08:59 25 mg TID GERALDINE Administration Isosorbide Dinitrate 10 mg 07/12/24 17:00 07/13/24 16:46 Isosorbide Dinitrate 5 Mg Tab PO 08/11/24 16:59 10 mg TID@0700,1200,1700 GERALDINE Administration Levalbuterol HCl 0.63 mg 07/14/24 01:39 07/14/24 02:05 Levalbuterol Hcl 0.63 Mg/3 Ml Neb NEB 08/13/24 01:38 0.63 mg Q4H PRN Administration Shortness Of Breath Or Wheezing Protocol Mirtazapine 15 mg 07/12/24 21:00 07/13/24 21:23 Mirtazapine Tab 15 Mg Tab PO 08/11/24 20:59 15 mg HS GERALDINE Administration Nitroglycerin 0.4 mg 07/09/24 14:49 07/13/24 22:43 Nitroglycerin Sl 0.4 Mg/Tab Tab SL 08/08/24 14:48 0.4 mg UD PRN Administration Chest Pain Ondansetron HCl 4 mg 07/09/24 14:49 07/14/24 01:49 Ondansetron Inj 2 Mg/Ml 2 Ml Vial IV 08/08/24 14:48 4 mg Q6H PRN Administration Nausea And Vomiting Pantoprazole Sodium 40 mg 07/10/24 09:00 07/13/24 12:39 Pantoprazole 40 Mg Tab PO 08/09/24 08:59 40 mg QAM GERALDINE Administration Polyethylene Glycol 17 gm 07/12/24 17:15 07/13/24 12:42 Polyethylene (Miralax) 17 Gm Pack PO 08/11/24 17:14 Not Given DAILY GERALDINE Rosuvastatin Calcium 20 mg 07/09/24 21:00 07/13/24 21:23 Rosuvastatin Calcium 20 Mg Tab PO 08/08/24 20:59 20 mg QPM GERALDINE Administration Sennosides 8.6 mg 07/12/24 21:00 07/13/24 21:23 Senna 8.6 Mg Tab PO 08/11/24 20:59 8.6 mg BID GERALDINE Administration Sodium Zirconium Cyclosilicate 10 gm 07/13/24 19:00 07/14/24 06:07 Sodium Zirconium Cyclosilicate 10 Gm Packet PO 07/15/24 11:01 10 gm TID@0700,1100,1900 GERALDINE Administration Tamsulosin HCl 0.4 mg 07/09/24 21:00 07/13/24 21:22 Tamsulosin Hcl 0.4 Mg Cap PO 08/08/24 20:59 0.4 mg QPM GERALDINE Administration Tramadol HCl 25 mg 07/12/24 14:34 07/12/24 18:41 Tramadol Hcl 50 Mg Tablet PO 08/11/24 14:33 25 mg Q4H PRN Administration Pain
--- NOTE | 2024-07-14 08:07 | Communication Note ---
Date of Service: July 14, 2024 Last night patinet complained of sob and chest pain. Ekg no acute findings. Trop mildly elevated was less than trop levels from 07/09. Was requiring 6lts oxygen. Gave iv lasix 60mg and transferred to tele. AT one point was saturating 87% on 6lts and ordered bipap but patient refused but sats improved and doing ok on oxymask 4-6lts.
--- NOTE | 2024-07-14 11:58 | Nephrology Progress Note ---
Date of Service July 14, 2024 Assessment & Plan (1) Acute kidney injury: Plan: further abruptly worsening stage one ?oliguric ROSALBA on CKD4 with baseline creatinine of around around mid 2's since April 2022, though renal function is labile and ranges 2.2-2.9 this timeframe. he was referred to nephro for February 2024 appt to est care but cancelled appt. Seen by cardiology earlier this month where he presented w/ SBP 210s, averaging 180s on home monitoring and not taking medications as rx'd. Renal u/s 07/11 w/o obstruction and w/ atrophic L kidney, and w/ multiple BL renal cysts; did have urinary retention on admission bladder scan and on 07/13 garcia had to be reinserted d/t same. this is predominantly CKD from hypertension as well as vascular disease. -in an elderly man with extensive comorbid disease and advanced pre-existing CKD any infection can cause some elevation in creatinine. he did have some shortness of breath and chest pain and possible pneumonia in this is enough to cause rising creatinine. euvolemic and then some obstruction > ? if this explains change in function or not >> HTN consistently uncontrolled and increased 02 needs today -cont to avoid nephrotoxic agents including NSAIDs nephrotoxic antibiotics contrast agents. -daily renal panel and CBC -garcia replaced > cont strict I/O -had lasix 60 mg IV today; low threshold to repeat later in day >> will repeat bmp at 1600 (order in ) and respond based on that -cont low K diet >started lokelma tid 07/13 which should continue > 3 doses so far We talked about dialysis and his need for it likely next today to net 24-48 hrs. pt is currently full code. He is unsure about what he wants to do as is his daughter. They both have concerns about quality of life and longterm plan. reminded them no right/wrong path here > he's 89 but a good 89; lives independently; family will be in this PM to discuss more; I will be available by phone his son is a retired box fabricator w/ [employer]; daughter is nurse move coordinator w/ [employer] > d/w daughter on phone for about 10 minutes Care coordinated repeatedly w/ Dr Oneil through the day regarding code status, dialysis dispo, f/u lab and med plans, lab results; we are in agreement. later in day pt and family reviewed goals of care w/ Dr Oneil and wish to pursue trial of dialysis; they understand this may or may not be well tolerated; critical care consult placed for temporary line placement. (2) CHF (congestive heart failure): Plan: pt does have underlying history of combined systolic/diastolic heart failure. last lasix dose 07/10 40 mg IV. no chest pain currently but concerning for increased WOB ; no home 02 and currently on 6L after 3L yesterday >>no more IVF >PRN lasix if dyspnea worsens this PM (3) Poorly-controlled hypertension: Plan: his blood pressure is now better controlled once his home blood pressure regimen was restarted. This pretty much proves that he was not taking his medications at home as he was supposed to; note on no diuretics as OP. Given that he's lived in [facility] systolic for months, target SBP 140-150s for now (4) CKD (chronic kidney disease): Plan: last outpatient creatinine was from February 2024 and he already had a creatinine of 2.5 putting him at CKD stage 4 and the cause is multifactorial from hypertension vascular disease and age. Also w/ atrophic L kidney, ? remote vascular issue. He has never seen nephro as OP and cx'd appt made for him in February 2024. he would benefit from having Nephrology follow-up if agreeable Admission and Anticipated Discharge Date Admission Date: July 09, 2024 Subjective more dyspneic and hypoxic overnight. renal function worsened despite IV fluids yesterday; w/ hypoxia, he received another 60 mg IV bolus. earlier overnight/ middle of night he also had sob and chest pain > responded to morphine; no ECG changes. seen mid morning rounds and with grandson at bedside; we got his daughter on the phone and talked w/ her. pt denies sob, uncontrolled pain, n/v, or more confusion. no further chest pain. Review of Systems 2 Review of Systems: All systems reviewed & are unremarkable except as noted in Subjective Physical Exam 2 Constitutional: well developed, + acute distress (slightly increased WOB, very mild distress), + thin, + altered mental status (slight confusion today), + frail appearing and cooperative oxymask on face as much as off of it Eyes: EOM intact bilaterally ENMT: Mouth: + dry oral mucous membranes Neck: no nuchal rigidity Respiratory: + labored breathing, able to speak in co mplete sentences, + tachypneic, + prolonged expiratory phase and + paradoxical thoraco-abdominal movement; no cough Auscultation: + diminished lung sounds and + wheezes (expiratory R sided diffuse); no crackles Cardiovascular: RRR, no murmur, no edema Gastrointestinal (Abdomen): Inspection/Auscultation: normal bowel sounds P ercussion/Palpation: abdomen soft Musculoskeletal: Extremities: strength 5/5 throughout Skin: no rashes, warm and dry Psychiatric: Orientation: alert and oriented x 3 (but confused how to call, what my name is, repeats self) Results & Data Vital Signs (Past 12 Hours) Vital Signs Temp Pulse Pulse Resp BP BP Pulse Ox 07/14/24 07:53 36.5 C 63 20 157/68 H 90 07/14/24 07:25 58 L 07/14/24 03:16 61 18 93 07/14/24 03:00 07/14/24 02:46 36.4 C L 62 157/75 H 89 L 07/14/24 02:06 63 18 90 07/14/24 01:51 66 158/69 H 90 O2 Del Method O2 Flow Rate FiO2 07/14/24 07:53 Oxymask 5 07/14/24 07:25 07/14/24 03:16 30 07/14/24 03:00 Nasal Cannula 6 07/14/24 02:46 Nasal Cannula 6 07/14/24 02:06 Nasal Cannula 6 07/14/24 01:51 Nasal Cannula 6 Laboratory Results 07/14/24 05:59 07/14/24 05:59 Diagnostic Findings cxr (personally reviewed image/agree) 1. Increasing vascular congestion and interstitial prominence. Appearance may represent pulmonary edema. 2. Worsening right greater than left lower lung zone airspace opacities, which may represent edema and/or pneumonia. 3. Small effusions.
--- NOTE | 2024-07-14 15:46 | Electrocardiogram Report ---
Test Reason : Blood Pressure : */* mmHG Vent. Rate : 58 BPM Atrial Rate : 58 BPM P-R Int : 210 ms QRS Dur : 102 ms QT Int : 442 ms P-R-T Axes : 68 42 73 degrees QTcB Int : 433 ms Sinus bradycardia with sinus arrhythmia with 1st degree A-V block Abnormal ECG When compared with ECG of 12-Jul-2024 15:41, MI interval has increased Confirmed by Perry Nelson ([id number]) on 07/14/2024 3:46:01 PM Referred By: REFERRED SELF Confirmed By: Perry Nelson
[2024-07-14 16:48] LABS: BUN Creatinine Ratio 15.4 (10-20); Calcium 8.4 mg/dl (8.6-10.3); Creatinine Clr Calc Pharmacy 6.8 ml/min; Potassium 5.6 mmol/L (3.5-5.1)
--- NOTE | 2024-07-14 20:17 | Critical Care Consultation ---
Date of Consultation July 14, 2024 Assessment & Plan (1) Acute renal failure superimposed on stage 4 chronic kidney disease: Labs and imaging reviewed. At this time we will proceed with insertion of hemodialysis catheter. Of note, patient is on ASA, Plavix, and has been receiving subcu heparin for DVT prophylaxis which would increase risk of bleeding with this procedure. However, benefits would most certainly outweigh risk considering underlying renal failure and hyperkalemia with metabolic aci dosis, And would not hold these medications due to underlying vascular disease/ CAD. Will defer further management to nephrology and primary team regarding patient's ongoing care postprocedure. Please feel free to reconsult/contact critical care services if additional services needed. Thank you for allowing us to participate in the care of this patient. Please refer to my attending physician's documentation for any further recommendations. Please refer to procedure note regarding procedure details. History of Present Illness Attending Physician: Bonny Oneil MD History of Present Illness Patient is a 89-year-old male with past medical history significant for CAD (s/p CABG), PAD, CKD stage IV, BPH, HTN, DAVONTE, who is currently undergoing treatment for acute on chronic renal failure and hyperkalemia. Patient has had progressive worsening of kidney function with ongoing hyperkalemia and metabolic acidosis despite medical treatment. Patient is being followed by nephrology, Dr. Herzog, who recommended undergoing hemodialysis early tomorrow morning. Critical care consulted for insertion of temporary HD catheter. Patient evaluated at the bedside and per patient request I did obtain consent from the patient's daughter over the phone. Dr. Herzog was also at the bedside, and spoke with the patient about need for hemodialysis in which the patient and patient's daughter are agreeable to proceed. At this time we will proceed with insertion of hemodialysis catheter at the patient's bedside. Currently patient only complains of nausea. He is otherwise hemodynamically stable, currently requiring 6 L supplemental oxygen on nasal cannula. He denies headache, dizziness, illness or fevers, chest pain or palpitations, abdominal pain, vomiting, diarrhea, swelling hands or feet. He denies any rashes or wounds. Patient reports he does not have a pacemaker. Allergies Allergy/AdvReac Type Severity Reaction Status Date / Time ciprofloxacin [From Cipro] AdvReac Vomiting Verified 09/19/20 10:27 Iodinated Contrast Media AdvReac Unknown Verified 09/19/20 10:27 Home Medications Medication Instructions Recorded Confirmed Type acetaminophen 325 mg tablet 325 mg PO QID PRN Pain 09/16/20 07/09/24 History (Tylenol) albuterol 90 mcg/actuation aerosol 90 mcg inhalation UD PRN sob 09/16/20 07/09/24 History inhaler amlodipine 5 mg tablet (Norvasc) 5 mg PO BID 09/16/20 07/09/24 History aspirin 81 mg tablet,delayed 81 mg PO DAILY 09/16/20 07/09/24 History release clopidogrel 75 mg tablet (Plavix) 75 mg PO QAM 09/16/20 07/09/24 History finasteride 5 mg tablet 5 mg PO QAM 09/16/20 07/09/24 History fluticasone 250 mcg-salmeterol 50 1 inh inhalation BID 09/16/20 07/09/24 History mcg/dose blistr powdr for inhalation (Advair Diskus) lisinopril 5 mg tablet 5 mg PO QAM 09/16/20 07/09/24 History metoprolol succinate 25 mg 25 mg PO BID 09/16/20 07/09/24 History tablet,extended release 24 hr nitroglycerin 0.4 mg sublingual 0.4 mg sublingual UD PRN Chest Pain 09/16/20 07/09/24 History tablet (Nitrostat) pantoprazole 40 mg tablet,delayed 40 mg PO QAM 09/16/20 07/09/24 History release (Protonix) rosuvastatin 20 mg tablet (Crestor) 20 mg PO QPM 09/16/20 07/09/24 History tamsulosin 0.4 mg capsule 0.4 mg PO QPM 09/16/20 07/09/24 History hydralazine 10 mg tablet 10 mg PO TID 07/09/24 07/09/24 History isosorbide dinitrate 5 mg tablet 5 mg PO QID 07/09/24 07/09/24 History Patient History Medical History Slow to wake up after anesthesia Vascular disease, peripheral BPH (benign prostatic hyperplasia) Hiatal hernia Dysphagia Belching continuous x several hours after eating/drinking GERD (gastroesophageal reflux disease) History of kidney cancer 2010 cryoablation therapy; follows with [facility] nephrology 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 Lai/Dr. Mancilla History of TIA (transient ischemic attack) 2018 History of myocardial infarction 1991 Hyperlipemia HTN (hypertension) COPD (chronic obstructive pulmonary disease) Surgical History History of tooth extraction History of vascular surgery stent LLE History of esophagogastroduodenoscopy (EGD) History of colonoscopy History of prior ablation treatment History of heart artery stent "quite a few" (2 placed 03/2019 and mult prior to) History of cardiac catheterization most recent 03/2019 at [facility] - 2 stents placed; mult caths at [facility]; mult stents (unable to recall specifics) History of coronary artery bypass graft x 3 1996 Family History Other No family history of adverse response to anesthesia Social History Smoking Status: Former smoker Second Hand Exposure: No; Do You Dip or Chew Tobacco: No; Hx Alcohol Use: No Hx Substance Use: No Preferred Language: Stateless Communication Ability: Effective Damaged Freight Inspector Required: No Beliefs That Will Affect Care: None Current Living Situation: Spouse Feels Safe at Home: Yes Safety Concerns: Feels Safe At This Time Assistive Devices: None Review of Systems Review of Systems: All systems reviewed & are unremarkable except as noted in HPI & below Physical Exam Constitutional: cooperative and comfortable Eyes: PERRL, conjunctivae normal, anicteric sclerae ENMT: external ear and nose normal, oropharynx normal Neck: trachea midline, no thyromegaly Respiratory: normal respiratory effort, lungs clear to auscultation Cardiovascular: RRR, no murmur, no edema Heart Sounds: normal S1 and normal S2 Extremities: no edema Gastrointestinal (Abdomen): normal bowel sounds, soft, nontender, no hepatosplenomegaly Musculoskeletal: no cyanosis or clubbing, extremities motor strength 5/5 Skin: no rashes, warm and dry Neurologic: PERRL, EOMI, accommodation nl, no face palsy, no dysarthria Psychiatric: A+Ox3, euthymic affect Results & Data Results & Data Vital Signs (Past 12 Hours) Vital Signs Temp Pulse Pulse Resp BP Pulse Ox O2 Del Method 07/14/24 19:36 36.8 C 57 L 18 158/68 H 91 Nasal Cannula 07/14/24 16:23 36.6 C 60 20 139/64 90 Nasal Cannula 07/14/24 15:32 58 L 07/14/24 12:06 36.6 C 74 22 129/64 94 Nasal Cannula O2 Flow Rate 07/14/24 19:36 5 07/14/24 16:23 5 07/14/24 15:32 07/14/24 12:06 6 Coding Level of Care Code None Diagnoses Acute renal failure superimposed on stage 4 chronic kidney disease N17.9; N18.4
--- NOTE | 2024-07-14 23:03 | XRay Report ---
Exam(s): XR CXR 1 VIEW EXAM: XR Chest, 1 View CLINICAL HISTORY: Reason for exam: line conformation. TECHNIQUE: Frontal view of the chest. COMPARISON: 07/13/24 at 1921 hrs. FINDINGS: Lungs: Vascular congestion and interstitial prominence appears improved from prior, which may represent improvement in palmar edema. Right greater than left bibasilar opacities appear partially cleared in the interval. Pleural space: Persistent small layering bilateral pleural effusions. No pneumothorax. Heart: Sternotomy. Stable heart size. Bones/joints: Acute osseous findings. Tubes, lines and devices: Left IJ catheter sheath with tip in the proximal SVC. IMPRESSION: 1. Vascular congestion and interstitial prominence appears improved from prior, which may represent improvement in pulmonary edema. 2. Right greater than left bibasilar opacities appear partially cleared in the interval. 3. Left IJ catheter sheath with tip in the proximal SVC. 4. Persistent small layering bilateral pleural effusions. Electronically signed by: Анна Zaman M.D. 07/14/24 23:03 PM
--- NOTE | 2024-07-15 | Procedure Note ---
Procedure Note Date of Service July 14, 2024 INTERNAL JUGULAR Hemodialysis catheter PROCEDURE NOTE: Procedure: Internal Jugular Hemodialysis catheter Placement Attending: Dr. Doe Quezada Provider: CAMERON Romero Indication: Need for hemodialysis Anesthesia: Lidocaine 1% Consent was signed and placed on the chart prior to procedure. Indication, risks, and benefits were explained at length. A time-out was completed verifying correct patient, procedure, site, positioning, and implants(s) or special equipment if applicable. Patient's Left Neck was cleansed and draped in the typical sterile fashion using Chloraprep. The Internal Jugular Vein and Carotid Artery were identified using ultrasound. The superficial tissue was anesthetized using 5 mL of 1% lidocaine without epinephrine under direct visualization with the ultrasound. After adequate anesthetization was achieved, the Internal Jugular vein was cannulated under direct ultrasound guidance using an introducer needle on a syringe. Good venous blood return was maintained prior to removal of syringe from introducer needle. Using Seldinger Technique, a guide wire was advanced through the introducer needle without resistance. The introducer needle was removed and ultrasound images were obtained of the guide wire within the Internal Jugular Vein and saved to the patient's medical record. A small incision was made in penetrating fashion at the guide wire insertion site utilizing an 11 blade scalpel. The dilator was advanced to the vessel without resistance, which was then exchanged for larger dilator again without resistance. The second dilator was exchanged for the Hemodialysis catheter which was advanced into the vessel without resistance. The guide wire was removed intact from the catheter without issue. Confirmation of good blood flow from each lumen was obtained. Each port was easily flushed with sterile saline, And caps were applied. The catheter was placed at 16 cm and sutured in place. Sterile dressing was applied over the catheter. Patient tolerated procedure well. No immediate complications were met. Post procedure x-ray was completed, placement was appropriate and no pneumothorax was noted. Procedural Ultrasound Guidance: Procedure Date: 07/14/2024 Indication: Hemodialysis catheter placement Attending: Dr. Doe Quezada Provider: CAMERON Romero Artery AND Vein visualized: Yes Compressible Vein: Yes Guidewire or Short Catheter seen in vein prior to dilation: Yes Line confirmed in Vein with ultrasound: Yes [place] Procedure Codes (Charges) Tubes, Drains, and Vasc Access Procedure 1: Tubes, Drains, and Vasc Access: [id number] Insertion Of Non-tunneled Catheter Age 5 Yrs> Procedure 2: Tubes, Drains, and Vasc Access: [id number] Ultrasound Guidance For Vascular Coding CPT Codes Tubes, Drains, and Vasc Access - Tubes, Drains, and Vasc Access: [id number] Insertion Of Non-tunneled Catheter Age 6 Yrs> ([id number]) Tubes, Drains, and Vasc Access - Tubes, Drains, and Vasc Access: [id number] Ultrasound Guidance For Vascular ([id number]) Additional Codes Date of Service ([facility].SURGERY)
[2024-07-15] MEDS ORDERED: HEPARIN 100 UNIT/ML 5ML FLUSH FLUSH PRN (00:15)
[2024-07-15] MEDS ORDERED: COUGH DROP (SUGAR FREE) LOZ 24 LOZ/1 BOX BUCCAL PRN (02:15)
[2024-07-15 06:31] LABS: Albumin Globulin Ratio 1.6 (0.9-2); Albumin Level 3.6 gm/dl (3.4-5.0); BUN Creatinine Ratio 14.6 (10-20); Bilirubin,Total 0.3 mg/dl (0.2-1.0); Calcium 8.5 mg/dl (8.6-10.3); Creatinine Clr Calc Pharmacy 6.1 ml/min; Globulin 2.2 gm/dl (2.5-4.0); Magnesium 2.7 mg/dl (1.7-2.4); Phosphorus 8.8 mg/dl (2.5-4.9); Potassium 5.5 mmol/L (3.5-5.1); Total Protein 5.8 gm/dl (6.0-8.3)
[2024-07-15] MEDS: FAMOTIDINE 20MG IV PUSH 20 MG/5 ML SYR IV STA (11:26)
[2024-07-15] MEDS: PROCHLORPERAZINE 5 MG in SYRINGE 4 ML IV ONE ×2 (11:27→20:58)
--- NOTE | 2024-07-15 14:29 | Hospitalist Progress Note ---
Date of Service July 15, 2024 Assessment & Plan (1) Acute renal failure superimposed on stage 4 chronic kidney disease: (2) Acute on chronic heart failure with preserved ejection fraction: (3) Pneumonia: (4) Hypertension, uncontrolled: (5) BPH with urinary obstruction: (6) Decreased appetite: (7) Vascular disease, peripheral: (8) CAD (coronary artery disease): (9) Cholelithiasis: (10) Hyperkalemia: (11) Hiatal hernia: (12) Esophageal dysmotility: Plan Mr. Quinn is an 89-year-old man with history of CAD status post multiple stents and CABG, PAD status post bilateral common iliac stents, TIA, bilateral carotid stenosis, CKD 4, status post left kidney cryoablation, COPD, GERD and other medical problems who presented on 07/09 due to chest pain and treated for acute on chronic heart failure with preserved ef and possible pneumonia. Imaging revealed gallstones and iso poor appetite, gen surgery consulted. Ultimately HIDA scan negative for acute cholecystitis and patient poor elective surgical candidate at this time. Patient's course marked by progressive decline in renal function with hyperkalemia and oliguri as well as worsening hypoxia iso volume overload. Family discussion regarding HD 07/14 ultimately led to patient decision for HD. Patient with line placed evening of 07/14 and first HD session this morning. Patient tolerated. Also looming concern for underlying depression based upon multiple stressors, long history of reluctance to eat, and cognitive impairment rather newer in onset per family (outside of acute illness). Patient started on mirtazapine this admission. Plan to continue with HD for now and monitor electrolytes, dispo contingent on stabilization of labs and final HD plan. #ROSALBA on CKD IV on HD 07/15 #Atrophic left kideny #multiple renal cysts baseline has ranged 2.2-2.9 Nephrology following -initially attempted fluid resuscitation, however, worsening volume overload -Lokelma started and continued iso hyperkalemia -Avoid nephrotoxins -Low K diet TDC in LIJ placed 07/14,, first HD session 07/15 Continue HD per nephrology recommendation #Acute hypoxic resp failure iso volume overload #Bilateral pleural effusions #Possible Pneumonia On 6 L NC, no reported distress, declined bipap completed abx HD for volume will likely require 2 step prior to dispo #Elevated troponin iso renal failure no chest pain reported, troponin flat at this time monitor on tele iso hyperkalemia #Acute on Chronic CHF, resolved #obstructive CAD s/p CABG 1996, CHARMAINE 2018 #Hypertensive urgency ECHO 55-60% 07/10 High sensitive troponin of 52 on admission with no delta difference BNP elevated to 1400 Diuretics held 2/2 progressive renal failure continue on coreg, amlodipine and hydralazine TID continue imdur continue asa and plavix continue statin #Cholelithiasis General surgery consulted, HIDA scan negative poor elective surgical candidate Encourage po #Poor appetite #c/f depression PHQ 13 -started on mirtazapine this admission GERDcontinue on home PPI COPDcontinue home inhalers Code status: Full DVT ppx: Hep sq Admission and Anticipated Discharge Date Admission Date: July 09, 2024 Subjective LIJ placed overnight, evaluated s/p HD reports feeling sleepy but in better spirits this am Denies any chest pain or acute concerns, did note some GI upset which resolved Physical Exam Constitutional: WD/WN, vitals as above Respiratory: diminshed bibasilar breathsounds Cardiovascular: RRR, no murmur, no edema Gastrointestinal (Abdomen): normal bowel sounds, soft, nontender, no hepatosplenomegaly Results & Data Results & Data Vital Signs (Past 12 Hours) Vital Signs Temp Pulse Pulse Pulse Pulse Resp BP 07/15/24 14:16 55 L 07/15/24 11:38 36.5 C 69 20 07/15/24 11:25 36.5 C 63 07/15/24 11:00 61 160/75 H 07/15/24 10:30 59 L 143/68 H 07/15/24 10:00 58 L 134/66 07/15/24 09:30 58 L 148/69 H 07/15/24 09:12 59 L 145/59 H 07/15/24 09:04 36.5 C 68 07/15/24 08:28 36.4 C L 59 L 20 07/15/24 07:40 61 07/15/24 04:45 58 L 15 07/15/24 02:29 36.5 C 62 18 BP BP Pulse Ox O2 Del Method O2 Flow Rate FiO2 07/15/24 14:16 141/53 H 07/15/24 11:38 170/74 H 94 Nasal Cannula 6.0 07/15/24 11:25 169/78 H 07/15/24 11:00 07/15/24 10:30 07/15/24 10:00 07/15/24 09:30 07/15/24 09:12 07/15/24 09:04 07/15/24 08:28 141/54 H 92 Nasal Cannula 5.0 07/15/24 07:40 07/15/24 04:45 94 40 07/15/24 02:29 145/62 H 90 Oxymask 6 Laboratory Results BMP 07/14/24 07/15/24 16:14 05:37 Sodium 136 137 Potassium 5.6 H 5.5 H Chloride 108 H 107 Carbon Dioxide 16 L 16 L BUN 105 H 110 H Creatinine 6.82 H* D 7.52 H* D Glucose 96 100 H Calcium 8.4 L 8.5 L Liver Function 07/15/24 Range/Units 05:37 Total Bilirubin 0.3 (0.2-1.0) mg/dl AST 8 L (13-39) U/L ALT 6 L (7-52) U/L Alkaline Phosphatase 45 (34-104) U/L Albumin 3.6 (3.4-5.0) gm/dl Medications Administered Home Medications Medication Instructions Recorded Confirmed Last Taken acetaminophen 325 mg tablet 325 mg PO QID PRN Pain 09/16/20 07/09/24 09/17/20 (Tylenol) albuterol 90 mcg/actuation aerosol 90 mcg inhalation UD PRN sob 09/16/20 07/09/24 07/09/24 inhaler amlodipine 5 mg tablet (Norvasc) 5 mg PO BID 09/16/20 07/09/24 07/07/24 aspirin 81 mg tablet,delayed 81 mg PO DAILY 09/16/20 07/09/24 07/07/24 release clopidogrel 75 mg tablet (Plavix) 75 mg PO QAM 09/16/20 07/09/24 07/07/24 finasteride 5 mg tablet 5 mg PO QAM 09/16/20 07/09/24 07/07/24 fluticasone 250 mcg-salmeterol 50 1 inh inhalation BID 09/16/20 07/09/24 Unknown mcg/dose blistr powdr for inhalation (Advair Diskus) lisinopril 5 mg tablet 5 mg PO QAM 09/16/20 07/09/24 07/07/24 metoprolol succinate 25 mg 25 mg PO BID 09/16/20 07/09/24 07/07/24 tablet,extended release 24 hr nitroglycerin 0.4 mg sublingual 0.4 mg sublingual UD PRN Chest Pain 09/16/20 07/09/24 07/09/24 tablet (Nitrostat) pantoprazole 40 mg tablet,delayed 40 mg PO QAM 09/16/20 07/09/24 07/07/24 release (Protonix) rosuvastatin 20 mg tablet (Crestor) 20 mg PO QPM 09/16/20 07/09/24 07/07/24 tamsulosin 0.4 mg capsule 0.4 mg PO QPM 09/16/20 07/09/24 07/07/24 hydralazine 10 mg tablet 10 mg PO TID 07/09/24 07/09/24 07/07/24 isosorbide dinitrate 5 mg tablet 5 mg PO QID 07/09/24 07/09/24 07/07/24 Active Medications Generic Name Dose Route Start Last Admin Trade Name Freq PRN Reason Stop Dose Admin Acetaminophen 650 mg 07/09/24 14:49 07/12/24 15:48 Acetaminophen 325 Mg Tab PO 08/08/24 14:48 650 mg QID PRN Administration Pain Albuterol 1 puffs 07/13/24 21:29 07/13/24 21:33 Albuterol Hfa 8 Gm Inhaler INH 08/08/24 14:59 1 puffs Q4H PRN Administration sob Amlodipine Besylate 5 mg 07/09/24 21:00 07/15/24 12:39 Amlodipine Besylate 5 Mg Tab PO 08/08/24 20:59 5 mg BID GERALDINE Administration Aspirin 81 mg 07/10/24 09:00 07/15/24 11:33 Aspirin 81 Mg Ectab PO 08/09/24 08:59 81 mg BID GERALDINE Administration Carvedilol 25 mg 07/11/24 21:00 07/15/24 11:32 Carvedilol 25 Mg Tab PO 08/10/24 20:59 25 mg BIDM GERALDINE Administration Clopidogrel Bisulfate 75 mg 07/10/24 09:00 07/15/24 11:32 Clopidogrel Bisulfate 75 Mg Tab PO 08/09/24 08:59 75 mg QAM GERALDINE Administration Finasteride 5 mg 07/10/24 09:00 07/15/24 11:31 Finasteride 5 Mg Tab PO 08/09/24 08:59 5 mg QAM GERALDINE Administration Fluticasone/Vilanterol 1 puffs 07/10/24 09:00 07/15/24 09:00 Fluticasone/Vilanterol 200/25mcg 14 Puffs/Inhaler INH 08/09/24 08:59 1 puffs DAILY GERALDINE Administration Heparin Sodium (Porcine) 5,000 units 07/09/24 14:49 07/15/24 13:06 Heparin Sod 5,000 Unit/0.5 Ml Vial SQ 08/08/24 14:48 Not Given Q8 GERALDINE Hydralazine HCl 25 mg 07/12/24 09:00 07/15/24 14:20 Hydralazine Hcl 25 Mg Tab PO 08/11/24 08:59 25 mg TID GERALDINE Administration Isosorbide Dinitrate 10 mg 07/12/24 17:00 07/15/24 12:11 Isosorbide Dinitrate 5 Mg Tab PO 08/11/24 16:59 Not Given TID@0700,1200,1700 GERALDINE Levalbuterol HCl 0.63 mg 07/14/24 01:39 07/15/24 00:36 Levalbuterol Hcl 0.63 Mg/3 Ml Neb NEB 08/13/24 01:38 0.63 mg Q4H PRN Administration Shortness Of Breath Or Wheezing Protocol Mirtazapine 15 mg 07/12/24 21:00 07/14/24 22:12 Mirtazapine Tab 15 Mg Tab PO 08/11/24 20:59 15 mg HS GERALDINE Administration Nitroglycerin 0.4 mg 07/09/24 14:49 07/13/24 22:43 Nitroglycerin Sl 0.4 Mg/Tab Tab SL 08/08/24 14:48 0.4 mg UD PRN Administration Chest Pain Ondansetron HCl 4 mg 07/09/24 14:49 07/15/24 03:53 Ondansetron Inj 2 Mg/Ml 2 Ml Vial IV 08/08/24 14:48 4 mg Q6H PRN Administration Nausea And Vomiting Pantoprazole Sodium 40 mg 07/10/24 09:00 07/15/24 11:31 Pantoprazole 40 Mg Tab PO 08/09/24 08:59 40 mg QAM GERALDINE Administration Polyethylene Glycol 17 gm 07/12/24 17:15 07/15/24 12:10 Polyethylene (Miralax) 17 Gm Pack PO 08/11/24 17:14 17 gm DAILY GERALDINE Administration Rosuvastatin Calcium 20 mg 07/09/24 21:00 07/14/24 22:11 Rosuvastatin Calcium 20 Mg Tab PO 08/08/24 20:59 20 mg QPM GERALDINE Administration Sennosides 8.6 mg 07/12/24 21:00 07/15/24 12:10 Senna 8.6 Mg Tab PO 08/11/24 20:59 8.6 mg BID GERLADINE Administration Tamsulosin HCl 0.4 mg 07/09/24 21:00 07/14/24 22:13 Tamsulosin Hcl 0.4 Mg Cap PO 08/08/24 20:59 0.4 mg QPM GERALDINE Administration Tramadol HCl 25 mg 07/12/24 14:34 07/14/24 22:09 Tramadol Hcl 50 Mg Tablet PO 08/11/24 14:33 25 mg Q4H PRN Administration Pain
--- NOTE | 2024-07-15 16:58 | Nephrology Progress Note ---
Date of Service July 15, 2024 Assessment & Plan (1) Acute kidney injury: Plan: further abruptly worsening stage one ?oliguric ROSALBA on CKD4 with baseline creatinine of around around mid 2's since April 2022, though renal function is labile and ranges 2.2-2.9 this timeframe. he was referred to nephro for February 2024 appt to est care but cancelled appt. Seen by cardiology earlier this month where he presented w/ SBP 210s, averaging 180s on home monitoring and not taking medications as rx'd. Renal u/s 07/11 w/o obstruction and w/ atrophic L kidney, and w/ multiple BL renal cysts; did have urinary retention on admission bladder scan and on 07/13 garcia had to be reinserted d/t same. this is predominantly CKD from hypertension as well as vascular disease. -in an elderly man with extensive comorbid disease and advanced pre-existing CKD any infection can cause some elevation in creatinine. he did have some shortness of breath and chest pain and possible pneumonia in this is enough to cause rising creatinine. euvolemic and then some obstruction > ? if this explains change in function or not >> HTN slightly better controlled and increased 02 needs again today -cont to avoid nephrotoxic agents including NSAIDs nephrotoxic antibiotics contrast agents. -daily renal panel and CBC -garcia replaced > cont strict I/O >> he is oliguric; unlikely to respond to more lasix -cont low K diet >started lokelma tid 07/13 which should continue tid until K better controlled on HD >hgb stable at 10 plan HD again tomorrow and likely day after >> worry that his sx reflect uremia w/ N, malaise, lack of clear thinking >> hence a bit longer HD tomorrow > 3.25 hr he's 89 but a good 89 at baseline; lives independently; his son is a retired jailer/training officer w/ [employer]; daughter is nurse data clerk w/ [employer] [place] Clinical status reviewed by phone w/ Dr Oneil along w/ plans for further HD in AM; we are in agreement. (2) CHF (congestive heart failure): Plan: pt does have underlying history of combined systolic/diastolic heart failure. last lasix dose 07/10 40 mg IV. no chest pain currently but concerning for increased WOB ; no home 02 and currently on 6L consistently past 24 hr >>no more IVF >PRN lasix and inhalers if dyspnea worsens this PM; concern that he may not respond much to lasix at this point (3) Poorly-controlled hypertension: Plan: his blood pressure is now better controlled once his home blood pressure regimen was restarted. Given that he's lived in 180s systolic for months, target SBP 140-150s for now >> at goal (4) CKD (chronic kidney disease): Plan: last outpatient creatinine was from February 2024 and he already had a creatinine of 2.5 putting him at CKD stage 4 and the cause is multifactorial from hypertension vascular disease and age. Also w/ atrophic L kidney, ? remote vascular issue. He has never seen nephro as OP and would benefit from Nephrology follow-up if feasible Admission and Anticipated Discharge Date Admission Date: July 09, 2024 Subjective tolerated 2 hr HD 1st tx today w/ 500 mL UF; UOP down to 100; seen on evening rounds; feels nauseated and weak generalized; c/o confusion/hazy thinking; miminal tolerance of PO Review of Systems 2 Review of Systems: All systems reviewed & are unremarkable except as noted in Subjective Physical Exam 2 Constitutional: well developed, + thin, + altered mental status (very slight confusion today but less than 07/14), + frail appearing and cooperative; no acute distress Eyes: EOM intact bilaterally ENMT: Mouth: + dry oral mucous membranes Neck: no nuchal rigidity Respiratory: able to speak in complete sentences and + tachypneic; no labored breathing, no cough, expiratory phase not prolonged and no paradoxical thoraco- abdominal movemnt Auscultation: + diminished lung sounds and + wheezes (expiratory occasional diffuse); no crackles Cardiovascular: RRR, no murmur, no edema Gastrointestinal (Abdomen): Inspection/Auscultation: normal bowel sounds P ercussion/Palpation: abdomen soft Musculoskeletal: Extremities: strength 5/5 throughout Skin: no rashes, warm and dry Psychiatric: Orientation: alert and oriented x 3 (no obvious confusion in interview) Results & Data Vital Signs (Past 12 Hours) Vital Signs Temp Pulse Pulse Pulse Pulse Resp BP 07/15/24 15:17 36.6 C 59 L 20 07/15/24 14:16 55 L 07/15/24 11:38 36.5 C 69 20 07/15/24 11:25 36.5 C 63 07/15/24 11:00 61 160/75 H 07/15/24 10:30 59 L 143/68 H 07/15/24 10:00 58 L 134/66 07/15/24 09:30 58 L 148/69 H 07/15/24 09:12 59 L 145/59 H 07/15/24 09:04 36.5 C 68 07/15/24 08:28 36.4 C L 59 L 20 07/15/24 07:40 61 BP BP Pulse Ox O2 Del Method O2 Flow Rate 07/15/24 15:17 151/53 H 93 Nasal Cannula 6.0 07/15/24 14:16 141/53 H 07/15/24 11:38 170/74 H 94 Nasal Cannula 6.0 07/15/24 11:25 169/78 H 07/15/24 11:00 07/15/24 10:30 07/15/24 10:00 07/15/24 09:30 07/15/24 09:12 07/15/24 09:04 07/15/24 08:28 141/54 H 92 Nasal Cannula 5.0 07/15/24 07:40 Laboratory Results 07/14/24 05:59 07/15/24 05:37
[2024-07-15] MEDS: SODIUM ZIRCONIUM CYCLOSILICATE 10 GM PACKET PO SCH (18:18)
[2024-07-16 04:35] LABS: Hematocrit (blood only) 28.9 % (42.0-52.0); Hemoglobin 9.7 g/dl (14.0-18.0); Mean Corpuscular Hemoglobin 30.9 pg (25.0-34.0); Mean Corpuscular Hgb Conc 33.6 g/dL (32.0-36.0); Mean Platelet Volume 10.6 fL (9.4-12.4); Platelet Count 141 K/uL (130-400); RDW Coefficient of Variation 14.6 % (11.5-14.5); RDW Standard Deviation 49.3 fL (36.4-46.3); Red Blood Count 3.14 M/uL (4.70-6.10); White Blood Count 5.54 K/ul (4.8-10.8)
[2024-07-16 04:50] LABS: BUN Creatinine Ratio 11.9 (10-20); Calcium 8.1 mg/dl (8.6-10.3); Creatinine Clr Calc Pharmacy 6.8 ml/min; Magnesium 2.5 mg/dl (1.7-2.4); Phosphorus 7.4 mg/dl (2.5-4.9); Potassium 4.9 mmol/L (3.5-5.1)
[2024-07-16] MEDS: ALBUT/IPRATROP 3MG/0.5MG NEB 3 ML VIAL NEB STA (05:48)
[2024-07-16] MEDS: FUROSEMIDE 40 MG/4 ML VIAL IV ONE (06:10)
--- NOTE | 2024-07-16 06:48 | XRay Report ---
EXAM: XR chest 1V portable CLINICAL HISTORY: LOW O2. TECHNIQUE: An X-ray image of the chest was obtained in 1 view: AP projection. COMPARISON: X-ray dated 07/14/2024. FINDINGS: Pulmonary Parenchyma: Patchy airspace shadowing is seen in both mid and lower zones. Prominent bronchovascular markings were seen bilaterally. Blunting of both costophrenic angles was seen likely due to pleural effusion. Heart and Mediastinum: Heart size and shape are normal. No mediastinal widening or masses. No hilar or mediastinal lymphadenopathy. Midline sternotomy sutures were seen, status post intervention. CVP line seen with its tip in normal position. Bony Thorax: Bony thorax appears intact without fractures or deformities. Soft Tissues: Soft tissues overlying the chest wall are unremarkable. IMPRESSION: Imaging appearances are likely due to pulmonary congestion/edema, however clinical and lab correlation is advised to rule out the possibility of pulmonary infection. Interval worsening in the disease process. Electronically signed by Jeff Stuart 07-16-2024 06:48 AM
[2024-07-16 07:18] LABS: Base Excess VBG -3.3 mEq/L; HCO3 VBG 22 mmol/L; Oxygen Saturation VBG 90.3 %; PCO2 VBG 40 mmHg (38-50); PO2 VBG 59 mmHg; pH VBG 7.35 (7.36-7.41)
--- NOTE | 2024-07-16 13:38 | Hospitalist Progress Note ---
Date of Service July 16, 2024 Assessment & Plan (1) Acute renal failure superimposed on stage 4 chronic kidney disease: (2) Acute on chronic heart failure with preserved ejection fraction: (3) Acute hypoxic respiratory failure: (4) Pneumonia: (5) Hypertension, uncontrolled: (6) BPH with urinary obstruction: (7) Decreased appetite: (8) Vascular disease, peripheral: (9) CAD (coronary artery disease): (10) Cholelithiasis: (11) Hyperkalemia: (12) Hiatal hernia: (13) Esophageal dysmotility: Plan Patient with progressive renal failure to the point where required to start hemodialysis this hospitalization Acute hypoxic respiratory failure requiring oxygen supplementation. Was able to titrate to nasal cannula here this morning. Anticipate oxygenation will improve after hemodialysis Communication with nephrology continue to assess daily needs for hemodialysis Patient completed course of antibiotic for presumed pneumonia, suspect hypoxia now due to ongoing volume Patient continues with poor appetite, can trial increasing Remeron at this point. Reviewed case management notes, revisiting discharge plans on Wednesday. Attempted to contact both son and daughter. Unable to reach them at either phone, will attempt again tomorrow Admission and Anticipated Discharge Date Admission Date: July 09, 2024 Subjective Patient tolerating hemodialysis. Denies shortness of breath. Denies chest pain. Nursing reports that she was able to get him on 6 L nasal cannula and off the oxy mask at breakfast this morning. On nasal cannula during hemodialysis Physical Exam Physical Exam: Constitutional: Alert, nontoxic, no acute distress HEENT: Mucous membranes moist. Hemodialysis catheter left jugular Lungs: Decreased breath sounds fine crackles throughout CV: S1-S2, regular Abdomen: Soft, nontender, nondistended Extremities: No significant edema Neuro: No focal deficits, generalized weakness Psych: Cooperative, normal mood Results & Data Results & Data Vital Signs (Past 12 Hours) Vital Signs Temp Pulse Pulse Pulse Pulse Resp BP 07/16/24 13:00 87 161/75 H 07/16/24 12:30 58 L 171/74 H 07/16/24 12:00 55 L 156/72 H 07/16/24 11:30 60 178/80 H 07/16/24 11:00 55 L 146/71 H 07/16/24 10:30 57 L 155/75 H 07/16/24 10:16 36.5 C 62 07/16/24 10:00 60 161/76 H 07/16/24 09:50 59 L 141/69 H 07/16/24 08:13 67 07/16/24 07:51 07/16/24 07:40 64 20 07/16/24 06:12 65 07/16/24 05:50 59 L 20 07/16/24 03:02 63 24 07/16/24 02:55 36.5 C 63 20 BP Pulse Ox O2 Del Method O2 Flow Rate 07/16/24 13:00 07/16/24 12:30 07/16/24 12:00 07/16/24 11:30 07/16/24 11:00 07/16/24 10:30 07/16/24 10:16 07/16/24 10:00 07/16/24 09:50 07/16/24 08:13 07/16/24 07:51 Oxymask 9 07/16/24 07:40 174/75 H 95 Oxymask 9 07/16/24 06:12 162/67 H 07/16/24 05:50 92 Oxymask 7 07/16/24 03:02 93 Oxymask 7 07/16/24 02:55 166/72 H 93 Oxymask 7 Diagnostic Findings Reviewed imaging, laboratory and diagnostic studies. Pertinent findings as below. Personally reviewed chest x-ray, increased congestion Hemoglobin 9.7 Electrolytes stable
[2024-07-16] MEDS: hydrALAZINE TAB 50 MG TAB PO SCH (13:49)
[2024-07-16] MEDS: HEPARIN SOD (PORCINE) 1000 UNIT/ML IV ONE (14:42)
[2024-07-16] MEDS: HEPARIN SOD (PORCINE) 1000 UNIT/ML IV SCH (14:42)
[2024-07-16] MEDS: MIRTAZAPINE TAB 15 MG TAB PO SCH (21:02)
--- NOTE | 2024-07-16 23:45 | Nephrology Progress Note ---
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 he was referred to nephro for February 2024 appt to est care but cancelled appt. Seen by cardiology earlier this month where he presented w/ SBP 210s, averaging 180s on home monitoring and not taking medications as rx'd. Renal u/s 07/11 w/o obstruction and w/ atrophic L kidney, and w/ multiple BL renal cysts; did have urinary retention on admission bladder scan and on 07/13 garcia had to be reinserted d/t same. this is predominantly CKD from hypertension as well as vascular disease. -in an elderly man with extensive comorbid disease and advanced pre-existing CKD any infection can cause some elevation in creatinine. he did have some shortness of breath and chest pain and possible pneumonia in this is enough to cause rising creatinine. euvolemic and then some obstruction > ? if this explains change in function or not >> HTN slightly better controlled and improved 02 needs after 2nd HD today -cont to avoid nephrotoxic agents including NSAIDs nephrotoxic antibiotics contrast agents. -daily renal panel and CBC -garcia replaced > cont strict I/O >> he is oliguric; unlikely to respond to more lasix -cont low K diet >will hold lokelma now > k 4.9 (on HD) >hgb slightly down at 9.7 >monitor plan HD again tomorrow and possibly day after >> worry that his sx reflect uremia w/ N, malaise, lack of clear thinking he's 89 but a good 89 at baseline; lives independently; his son is a retired heel emery buffer w/ [employer]; daughter is nurse script editor w/ [employer] [facility] [employer] Clinical status reviewed by phone w/ Dr Bianchi along w/ plans for further HD in AM; we are in agreement. Also updated him of need for TDC, ? a transfer to [facility] for procedure only w/ return to [facility]; no vascular surgery procedures here until 07/24/24; no interventional radiology until 07/20/23+ (2) CHF (congestive heart failure): Plan: pt does have underlying history of combined systolic/diastolic heart failure. last lasix dose 07/10 40 mg IV. no chest pain currently but concerning for increased WOB ; no home 02 and currently on 6L consistently past 24 hr >>no more IVF >PRN lasix and inhalers if dyspnea worsens overnight; concern that he may not respond much to lasix at this point (3) Poorly-controlled hypertension: Plan: his blood pressure is now generally better controlled once his home blood pressure regimen was restarted. Given that he's lived in 180s systolic for months, target SBP 140-150s for now >> at goal (4) CKD (chronic kidney disease): Plan: last outpatient creatinine was from February 2024 and he already had a creatinine of 2.5 putting him at CKD stage 4 and the cause is multifactorial from hypertension vascular disease and age. Also w/ atrophic L kidney, ? remote vascular issue. He has never seen nephro as OP and would benefit from Nephrology follow-up if feasible Admission and Anticipated Discharge Date Admission Date: July 09, 2024 Subjective extremely delayed note entered for late afternoon rounds visit w/ pt lucina shirley today. breathing much improved. many questions about how OP dialysis works. definitely breathing better, thinking clearer. down to 2L NC after dialysis (was on 9L OM this am) Review of Systems 2 Review of Systems: All systems reviewed & are unremarkable except as noted in Subjective Physical Exam 2 Constitutional: well developed, + thin, + frail appearing and cooperative; no acute distress Eyes: EOM intact bilaterally ENMT: Mouth: + dry oral mucous membranes Respiratory: able to speak in complete sentences; no labored breathing, no cough, expiratory phase not prolonged and no paradoxical thoraco-abdominal movemnt Auscultation: + diminished lung sounds and + crackles (fine) Cardiovascular: RRR, no murmur, no edema Gastrointestinal (Abdomen): Inspection/Auscultation: normal bowel sounds P ercussion/Palpation: abdomen soft Musculoskeletal: Extremities: strength 5/5 throughout Skin: no rashes, warm and dry Psychiatric: Orientation: alert and oriented x 3 (no obvious confusion in interview) Results & Data Vital Signs (Past 12 Hours) Vital Signs Temp Pulse Pulse Pulse Resp BP BP 07/16/24 23:16 36.6 C 65 18 147/68 H 07/16/24 21:17 07/16/24 14:41 61 07/16/24 13:57 76 16 162/71 H 07/16/24 13:15 56 L 162/76 H 07/16/24 13:00 57 L 161/75 H 07/16/24 12:30 58 L 171/74 H 07/16/24 12:00 55 L 156/72 H Pulse Ox O2 Del Method O2 Flow Rate 07/16/24 23:16 87 L Nasal Cannula 4 07/16/24 21:17 Nasal Cannula 2 07/16/24 14:41 07/16/24 13:57 92 Nasal Cannula 2 07/16/24 13:15 07/16/24 13:00 07/16/24 12:30 07/16/24 12:00 Laboratory Results 07/16/24 04:05 07/16/24 04:05
[2024-07-17 06:50] LABS: BUN Creatinine Ratio 9.4 (10-20); Calcium 8.4 mg/dl (8.6-10.3); Creatinine Clr Calc Pharmacy 7.6 ml/min; Magnesium 2.2 mg/dl (1.7-2.4); Phosphorus 6.4 mg/dl (2.5-4.9); Potassium 4.5 mmol/L (3.5-5.1)
[2024-07-17 09:47] LABS: Hep B Surface Ag with confirm Negative (Negative)
[2024-07-17 09:56] LABS: Hepatitis B Surface Ab Quant < 3.00 mIU/mL (>or=10mIU/mL Immune); Hepatitis B Surface Antibody Non-Immune
[2024-07-17] MEDS: HEPARIN SOD (PORCINE) 1000 UNIT/ML IV ONE (11:00)
[2024-07-17] MEDS: EPOETIN ALFA 4,000 UNIT/ML VIAL IV ONE (11:12)
--- NOTE | 2024-07-17 11:21 | Dialysis Progress Note ---
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 he was referred to nephro for February 2024 appt to est care but cancelled appt. Seen by cardiology earlier this month where he presented w/ SBP 210s, averaging 180s on home monitoring and not taking medications as rx'd. Renal u/s 07/11 w/o obstruction and w/ atrophic L kidney, and w/ multiple BL renal cysts. Did have urinary retention on admission bladder scan and on 07/13 garcia had to be reinserted d/t same. this is predominantly CKD from hypertension as well as vascular disease. In an elderly man with extensive comorbid disease and advanced pre-existing CKD any infection can cause some elevation in creatinine. he did have some shortness of breath and chest pain and possible pneumonia in this is enough to cause rising creatinine. Euvolemic and then some obstruction > ? if this explains change in function or not. HTN slightly better controlled and improved 02 needs after 2nd HD today Newly started on Dialysis--today is his second. CVC fine. However He needs a tunnelled HD cath before Discharge. Holiday schedule makes it hard. S-----Seen in dialysis. Feels fine. BP and CVC fine. Exam: Physical Exam Constitutional: well developed, + thin, + frail appearing and cooperative; no acute distress Eyes: EOM intact bilaterally ENMT: Mouth: + dry oral mucous membranes Respiratory: able to speak in complete sentences; no labored breathing, no cough, expiratory phase not prolonged and no paradoxical thoraco-abdominal movemnt Auscultation: + diminished lung sounds and + crackles (fine) Cardiovascular: RRR, no murmur, no edema Gastrointestinal (Abdomen): Inspection/Auscultation: normal bowel sounds Percussion/Palpation: abdomen soft Musculoskeletal: Extremities: strength 5/5 throughout Skin: no rashes, warm and dry Psychiatric: Orientation: alert and oriented x 3 (no obvious confusion in interview) Results & Data Vital Signs (Past 12 Hours) Vital Signs Temp Pulse Resp BP Pulse Ox O2 Del Method O2 Flow Rate 07/17/24 07:46 36.6 C 63 18 158/72 H 92 Nasal Cannula 4.0 07/17/24 00:05 90 Nasal Cannula 4
[2024-07-17] MEDS: HEPARIN SOD (PORCINE) 1000 UNIT/ML IV SCH (12:07)
--- NOTE | 2024-07-17 14:39 | Hospitalist Progress Note ---
Date of Service July 17, 2024 Assessment & Plan (1) Acute renal failure superimposed on stage 4 chronic kidney disease: (2) Acute on chronic heart failure with preserved ejection fraction: (3) Acute hypoxic respiratory failure: (4) Pneumonia: (5) Hypertension, uncontrolled: (6) BPH with urinary obstruction: (7) Decreased appetite: (8) Vascular disease, peripheral: (9) CAD (coronary artery disease): (10) Cholelithiasis: (11) Hyperkalemia: (12) Hiatal hernia: (13) Esophageal dysmotility: Plan Patient's respiratory failure improving, titrated down to 4 L today. Continue hemodialysis Extensive time spent on evaluating how best to get patient a tunneled hemodi alysis catheter. Did try to transfer to [facility] for more immediate placement. They have no bed availability and unable to do the procedure and send the patient back to us. Received updated information from Dr. Dyer's office, he will be returning on and has OR availability and Wednesday. This most likely will be the soonest any place will be able to place a dialysis catheter. Will proceed with consulting Dr. Dyer for hemodialysis catheter placement Continue to titrate oxygen as able Continue to encourage activities and therapies Continue to encourage oral intake Case management working with family and patient as far as discharge planning. Will need to coordinate outpatient hemodialysis 65 minutes spent on coordinating care, communication with specialist, family and medical team Admission and Anticipated Discharge Date Admission Date: July 09, 2024 Subjective Patient seen in dialysis. A little sleepy today. He reports he did not sleep well but no pain or shortness of breath. Still not eating well. Does not think he had a bowel movement recently Physical Exam Physical Exam: Constitutional: Sleepy, easily awakened, resting in dialysis HEENT: Mucous membranes moist., Left jugular dialysis catheter in place Lungs: Clear to auscultation, decreased, no wheezes rales or rhonchi CV: S1-S2, regular Abdomen: Soft, nontender, nondistended Extremities: No significant edema Neuro: No focal deficits, some weakness Psych: Cooperative, normal mood Results & Data Results & Data Vital Signs (Past 12 Hours) Vital Signs Temp Pulse Pulse Pulse Resp BP BP 07/17/24 13:30 62 162/73 H 07/17/24 13:00 62 160/68 H 07/17/24 12:30 64 147/72 H 07/17/24 12:18 07/17/24 12:00 62 142/66 H 07/17/24 11:30 62 159/67 H 07/17/24 11:00 60 156/75 H 07/17/24 10:41 61 170/73 H 07/17/24 10:32 36.5 C 60 07/17/24 07:46 36.6 C 63 18 158/72 H Pulse Ox O2 Del Method O2 Flow Rate 07/17/24 13:30 07/17/24 13:00 07/17/24 12:30 07/17/24 12:18 Nasal Cannula 07/17/24 12:00 07/17/24 11:30 07/17/24 11:00 07/17/24 10:41 07/17/24 10:32 07/17/24 07:46 92 Nasal Cannula 4.0 Diagnostic Findings Reviewed imaging, laboratory and diagnostic studies. Pertinent findings as below. Last bowel 07/12/2024 movement reported Renal panel reviewed consistent with renal disease
[2024-07-18 06:25] LABS: Mean Corpuscular Hemoglobin 30.7 pg (25.0-34.0); Mean Corpuscular Hgb Conc 33.3 g/dL (32.0-36.0); Mean Corpuscular Volume 92.2 fL (80.0-100.0); Mean Platelet Volume 10.8 fL (9.4-12.4); Platelet Count 153 K/uL (130-400); RDW Coefficient of Variation 14.3 % (11.5-14.5); RDW Standard Deviation 48.2 fL (36.4-46.3); Red Blood Count 3.58 M/uL (4.70-6.10); White Blood Count 5.74 K/ul (4.8-10.8)
[2024-07-18 06:40] LABS: BUN Creatinine Ratio 7.5 (10-20); Calcium 8.4 mg/dl (8.6-10.3); Creatinine Clr Calc Pharmacy 8.2 ml/min; Magnesium 2.2 mg/dl (1.7-2.4); Phosphorus 5.8 mg/dl (2.5-4.9); Potassium 4.4 mmol/L (3.5-5.1)
--- NOTE | 2024-07-18 07:53 | XRay Report ---
EXAM: XR chest 1V portable CLINICAL HISTORY: HYPOXIA KAB BME TECHNIQUE: Chest x ray performed in frontal projection. COMPARISON: 07/16/2024. FINDINGS: Pulmonary Parenchyma: Patchy airspace shadowing is seen in both mid and lower zones. Prominent bronchovascular markings were seen bilaterally. Mild left and mild to moderate right pleural effusion. Heart and Mediastinum: Heart size cannot be adequately commented on due to projection. No mediastinal widening or masses. Midline sternotomy sutures were seen. CVP line is redemonstrated with its tip in the SVC. Bony Thorax: Midline sternotomy sutures were seen. Soft Tissues: Soft tissues overlying the chest wall are unremarkable IMPRESSION: 1. Overall findings are suggestive of pulmonary congestion/edema with mild left and mild to moderate right pleural effusion. The possibility of pulmonary infection cannot be excluded. 2. No gross interval change from prior x ray. Follow-up is recommended. Electronically signed by Jeff Stuart 07-18-2024 07:52 AM
--- NOTE | 2024-07-18 10:42 | Nephrology Progress Note ---
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 he was referred to nephro for February 2024 appt to est care but cancelled appt. Seen by cardiology earlier this month where he presented w/ SBP 210s, averaging 180s on home monitoring and not taking medications as rx'd. Renal u/s 07/11 w/o obstruction and w/ atrophic L kidney, and w/ multiple BL renal cysts. Did have urinary retention on admission bladder scan and on 07/13 garcia had to be reinserted d/t same. this is predominantly CKD from hypertension as well as vascular disease. In an elderly man with extensive comorbid disease and advanced pre-existing CKD any infection can cause some elevation in creatinine. he did have some shortness of breath and chest pain and possible pneumonia in this is enough to cause rising creatinine. Euvolemic and then some obstruction > ? if this explains change in function or not. HTN slightly better controlled and improved 02 needs after 2nd HD today Newly started on Dialysis--had 2 dialysis so far. CVC fine. However He needs a tunnelled HD cath before Discharge. Dr Dyer is back and will do either or wednesday. This is acceptable. because of Holiday schedule will do dialysis today--3hrs and take 1.5 kilo off. S----- he had dialysis yesterday. No issues as such with dialysis. However not eating and looks more and more less interactive. Not eating anything.c/o neck pain. BP and CVC fine. Exam: Physical Exam Constitutional: well developed, + thin, + frail appearing and cooperative; no acute distress Eyes: EOM intact bilaterally ENMT: Mouth: + dry oral mucous membranes Respiratory: able to speak in complete sentences; no labored breathing, no cough, expiratory phase not prolonged and no paradoxical thoraco-abdominal movemnt Auscultation: + diminished lung sounds and + crackles (fine) Cardiovascular: RRR, no murmur, no edema Gastrointestinal (Abdomen): Inspection/Auscultation: normal bowel sounds Percussion/Palpation: abdomen soft Musculoskeletal: Extremities: strength 5/5 throughout Skin: no rashes, warm and dry Psychiatric: Orientation: alert and oriented x 3 (no obvious confusion in interview) Results & Data Vital Signs (Past 12 Hours) Vital Signs Temp Pulse Pulse Resp BP BP Pulse Ox 07/18/24 08:28 36.8 C 64 17 167/73 H 90 07/18/24 02:36 07/17/24 23:19 36.8 C 63 18 148/59 H 92 O2 Del Method O2 Flow Rate 07/18/24 08:28 Nasal Cannula 2 07/18/24 02:36 Nasal Cannula 2 07/17/24 23:19 Nasal Cannula 4
[2024-07-18] MEDS: bisacodyL 10 MG SUPP PR STA (11:49)
[2024-07-18] MEDS ORDERED: EPOETIN ALFA 4,000 UNITS in SYRINGE 0 ML IV ONE (11:55)
[2024-07-18] MEDS ORDERED: EPOETIN ALFA 4,000 UNIT/ML VIAL SQ ONE (12:00)
--- NOTE | 2024-07-18 14:05 | Hospitalist Progress Note ---
Date of Service July 18, 2024 Assessment & Plan (1) Acute renal failure superimposed on stage 4 chronic kidney disease: (2) Acute on chronic heart failure with preserved ejection fraction: (3) Acute hypoxic respiratory failure: (4) Pneumonia: (5) Hypertension, uncontrolled: (6) BPH with urinary obstruction: (7) Decreased appetite: (8) Vascular disease, peripheral: (9) CAD (coronary artery disease): (10) Cholelithiasis: (11) Hyperkalemia: (12) Hiatal hernia: (13) Esophageal dysmotility: Plan Patient 83-year-old gentleman initially presented with what was thought to be pneumonia and decompensated heart failure. He completed a course of antibiotics for pneumonia. It was attempted to diuresis however he had acute decompensation of his kidney function to the point where he required hemodialysis. Overall the last day or 2 patient seems to be getting weaker and declining. Patient has not had a good appetite for months, trialing Remeron, however still minimal oral intake. Continue with supportive care Continue therapies Continue hemodialysis as coordinated by nephrology Dr. Dyer will return on . Aware of consult for need of tunneled hemodialysis catheter to be placed either or Wednesday. Case management aware family requesting at the time of discharge to refer patient to go to [facility] and go to the [place] dialysis unit. K-pad for patient's neck tenderness, patient is holding his neck more to the right because he has a left dialysis catheter I suspect this is causing some somatic dysfunction and muscle spasms in his neck. Admission and Anticipated Discharge Date Admission Date: July 09, 2024 Subjective Patient complaining of right sided neck pain and soreness. Overall seems to be getting weaker Physical Exam Physical Exam: Constitutional: Alert but drowsy HEENT: Mucous membranes moist. Temporary dialysis catheter left jugular Lungs: Decreased breath sounds with a few crackles CV: S1-S2, regular Abdomen: Soft, nontender, nondistended Extremities: No significant edema Musculoskeletal: Cervical spine musculature with ropiness and bogginess and tenderness right greater than left Neuro: No focal deficits, generalized weakness Psych: Cooperative, intermittent confusion Results & Data Results & Data Vital Signs (Past 12 Hours) Vital Signs Temp Pulse Pulse Resp BP BP Pulse Ox 07/18/24 12:05 57 L 132/68 07/18/24 08:28 36.8 C 64 17 167/73 H 90 07/18/24 02:36 O2 Del Method O2 Flow Rate 07/18/24 12:05 07/18/24 08:28 Nasal Cannula 2 07/18/24 02:36 Nasal Cannula 2 Diagnostic Findings Reviewed imaging, laboratory and diagnostic studies. Pertinent findings as below.
[2024-07-18] MEDS: EPOETIN ALFA 4,000 UNIT/ML VIAL IV ONE (14:22)
--- NOTE | 2024-07-18 18:39 | Communication Note ---
Date of Service: July 18, 2024 Attended meli pérez. The patient has not had a bowel movement for the last 5 days and always on commode when he suffered syncopal episode Following the episode he was very weak but otherwise hemodynamically stable Denies any significant symptoms and did not have any signs and or symptoms of stroke. His EKG was not bradycardia but no other abnormalities he will have CT of the head and also chest x-ray and CBC CMP with magnesium to make sure everything else is in the right direction. The daughter updated. Will transfer him to telemetry unit for continuation of care. Dr Del Lara
[2024-07-18 18:47] LABS: Basophils # (auto) 0.03 K/uL (0.00-0.20); Basophils % (auto) 0.6 %; Eosinophils # (auto) 0.07 K/uL (0.00-0.50); Eosinophils % (auto) 1.3 %; Hemoglobin 10.6 g/dl (14.0-18.0); Immature Granulocytes # (auto) 0.03 K/uL (0.01-0.20); Immature Granulocytes % (auto) 0.6 %; Lymphocytes # (auto) 0.68 K/uL (1.20-3.40); Lymphocytes % (auto) 12.7 %; Mean Corpuscular Hemoglobin 31.4 pg (25.0-34.0); Mean Corpuscular Hgb Conc 34.2 g/dL (32.0-36.0); Mean Corpuscular Volume 91.7 fL (80.0-100.0); Monocytes # (auto) 1.01 K/uL (0.11-0.59); Monocytes % (auto) 18.8 %; Neutrophils # (auto) 3.55 K/uL (1.40-6.50); Platelet Count 162 K/uL (130-400); RDW Coefficient of Variation 14.1 % (11.5-14.5); RDW Standard Deviation 47.6 fL (36.4-46.3); Red Blood Count 3.38 M/uL (4.70-6.10); White Blood Count 5.37 K/ul (4.8-10.8)
[2024-07-18 19:04] LABS: Calcium 8.2 mg/dl (8.6-10.3); Magnesium 2.1 mg/dl (1.7-2.4); Potassium 4.4 mmol/L (3.5-5.1)
[2024-07-18 19:09] LABS: BUN Creatinine Ratio 6.5 (10-20); Creatinine Clr Calc Pharmacy 10.3 ml/min
--- NOTE | 2024-07-18 19:38 | XRay Report ---
Exam(s): XR CXR 1 VIEW EXAM: XR Chest, 1 View CLINICAL HISTORY: Reason for exam: CHF. TECHNIQUE: Frontal view of the chest. COMPARISON: 07/18/2024 IMPRESSION: 1. Unchanged bilateral pleural effusions and basilar infiltrates versus atelectasis. 2. Left central line appears to be kinked in the region of the first rib. Electronically signed by: Jonn Hayes MD 07/18/24 19:38 PM
--- NOTE | 2024-07-18 21:18 | CT Scan Report ---
Exam(s): CT HEAD Without Contrast EXAM: CT Head Without Intravenous Contrast CLINICAL HISTORY: Reason for exam: R/o Bleed. TECHNIQUE: Axial computed tomography images of the head/brain without intravenous contrast. CTDI is 38.17 mGy and DLP is 624.41 mGy-cm. Automated exposure control was utilized for the study. A dose lowering technique was utilized adhering to the principles of ALARA. COMPARISON: No relevant prior studies available. FINDINGS: Brain: Global parenchymal atrophy. No hemorrhage, extra-axial fluid collection, mass effect, or edema. Ventricles: Unremarkable. Bones/joints: Unremarkable. No fracture. Soft tissues: Unremarkable. Sinuses: Right maxillary sinus mucosal thickening. Mastoid air cells: Unremarkable as visualized. IMPRESSION: 1. No acute intracranial abnormality. Electronically signed by: Jonn Hayes MD 07/18/24 21:17 PM
--- NOTE | 2024-07-19 08:44 | Hospitalist Progress Note ---
Date of Service July 19, 2024 Assessment & Plan (1) Acute renal failure superimposed on stage 4 chronic kidney disease: (2) Acute on chronic heart failure with preserved ejection fraction: (3) Acute hypoxic respiratory failure: (4) Pneumonia: (5) Hypertension, uncontrolled: (6) BPH with urinary obstruction: (7) Decreased appetite: (8) Vascular disease, peripheral: (9) CAD (coronary artery disease): (10) Cholelithiasis: (11) Hyperkalemia: (12) Hiatal hernia: (13) Esophageal dysmotility: Plan Mr. Quinn is an 89-year-old man with history of CAD status post multiple stents and CABG, PAD status post bilateral common iliac stents, TIA, bilateral carotid stenosis, CKD 4, status post left kidney cryoablation, COPD, GERD and other medical problems who presented on 07/09 due to chest pain and treated for acute on chronic heart failure with preserved EF and possible pneumonia. Imaging revealed gallstones and iso poor appetite, gen surgery consulted. Ultimately HIDA scan negative for acute cholecystitis and patient poor elective surgical candidate at this time. Patient's course marked by progressive decline in renal function with hyperkalemia and oliguria as well as worsening hypoxia iso volume overload. Family discussion regarding HD 07/14 ultimately led to patient decision for HD. Patient with line placed evening of 07/14 and first HD session 07/15 morning. Patient tolerated. Also looming concern for underlying depression based upon multiple stressors, long history of reluctance to eat, and cognitive impairment rather newer in onset per family (outside of acute illness). Patient started on mirtazapine this admission. Plan to continue with HD for now and monitor electrolytes, dispo contingent on stabilization of labs and final HD plan. ------ Patient 83-year-old gentleman initially presented with what was thought to be pneumonia and decompensated heart failure. He completed a course of antibiotics for pneumonia. It was attempted to diuresis however he had acute decompensation of his kidney function to the point where he required hemodialysis. Overall the last day or 2 patient seems to be getting weaker and declining. Patient has not had a good appetite for months, trialing Remeron, however still minimal oral intake. K-pad for patient's neck tenderness, patient is holding his neck more to the right because he has a left dialysis catheter I suspect this is causing some somatic dysfunction and muscle spasms in his neck. #ROSALBA on CKD IV on HD 07/15 #Atrophic left kideny #multiple renal cysts baseline has ranged 2.2-2.9 Nephrology following -initially attempted fluid resuscitation, however, worsening volume overload -Lokelma started and continued iso hyperkalemia -Avoid nephrotoxins -Low K diet TDC in [facility] placed 07/14, first HD session 07/15 Continue HD as coordinated by nephrology Dr. Dyer will return on . Aware of consult for need of tunneled hemodialysis catheter to be placed either or Wednesday. Case management aware family requesting at the time of discharge to refer patient to go to [facility] and go to the [place] dialysis unit. #Acute hypoxic resp failure iso volume overload #Bilateral pleural effusions #Possible Pneumonia On 6 L NC, no reported distress, declined bipap completed abx HD for volume will likely require 2 step prior to dispo currently on 4l #Elevated troponin iso renal failure no chest pain reported, troponin flat at this time monitor on tele iso hyperkalemia #Acute on Chronic CHF, resolved #obstructive CAD s/p CABG 1996, CHARMAINE 2018 #Hypertensive urgency ECHO 55-60% 07/10 High sensitive troponin of 52 on admission with no delta difference BNP elevated to 1400 Diuretics held 2/2 progressive renal failure continue on coreg, amlodipine and hydralazine TID continue imdur continue asa and plavix continue statin #Cholelithiasis General surgery consulted, HIDA scan negative poor elective surgical candidate Encourage po #Poor appetite #c/f depression PHQ 13 -started on mirtazapine this admission GERDcontinue on home PPI COPDcontinue home inhalers Code status: Full DVT ppx: Hep sq Admission and Anticipated Discharge Date Admission Date: July 09, 2024 Subjective Pt see in follow up Started HD several days ago was treated for poss. pna earlier HIDA normal Yesterday had syncopal episode, when having a BM Currently sitting up in bed in NAD, overall says he is feeling better and has an appetite after several days of having no appetite Denies any chest pain, or shortness of breath, no abd. pain Review of Systems Review of Systems: All systems reviewed & are unremarkable except as noted in Subjective Physical Exam Physical Exam: Constitutional: WD/WN elderly M in NAD HEENT: Mucous membranes moist. Temporary dialysis catheter left jugular Lungs: Decreased breath sounds with a few crackles CV: S1-S2, regular Abdomen: Soft, nontender, nondistended Extremities: No significant edema Neuro: awake, alert, No focal deficits, generalized weakness Psych: Cooperative Results & Data Results & Data Vital Signs (Past 12 Hours) Vital Signs Temp Pulse Pulse Resp BP Pulse Ox O2 Del Method 07/19/24 07:51 Nasal Cannula 07/19/24 03:00 36.6 C 65 17 122/62 91 Nasal Cannula 07/18/24 22:01 Nasal Cannula 07/18/24 22:00 36.8 C 69 22 153/63 H 92 Nasal Cannula 07/18/24 21:45 61 O2 Flow Rate 07/19/24 07:51 4 07/19/24 03:00 4 07/18/24 22:01 4 07/18/24 22:00 5 07/18/24 21:45 Laboratory Results 07/18/24 07/18/24 Range/Units 18:29 18:01 WBC 5.37 (4.8-10.8) K/ul RBC 3.38 L (4.70-6.10) M/uL Hgb 10.6 L (14.0-18.0) g/dl Hct 31.0 L (42.0-52.0) % MCV 91.7 (80.0-100.0) fL MCH 31.4 (25.0-34.0) pg MCHC 34.2 (32.0-36.0) g/dL RDW Std Deviation 47.6 H (36.4-46.3) fL RDW Coeff of Jessica 14.1 (11.5-14.5) % Plt Count 162 (130-400) K/uL MPV 11.0 (9.4-12.4) fL Immature Gran % (Auto) 0.6 % Neut % (Auto) 66.0 % Lymph % (Auto) 12.7 % [place] % (Auto) 18.8 % Eos % (Auto) 1.3 % Baso % (Auto) 0.6 % Neut # (Auto) 3.55 (1.40-6.50) K/uL Lymph # (Auto) 0.68 L (1.20-3.40) K/uL [place] # (Auto) 1.01 H (0.11-0.59) K/uL Eos # (Auto) 0.07 (0.00-0.50) K/uL Baso # (Auto) 0.03 (0.00-0.20) K/uL Immature Gran # (Auto) 0.03 (0.01-0.20) K/uL Sodium 137 (136-145) mmol/L Potassium 4.4 (3.5-5.1) mmol/L Chloride 106 (98-107) mmol/L Carbon Dioxide 23 (21-32) mmol/L Anion Gap 8 (3-11) BUN 29 H (6-23) mg/dl Creatinine 4.44 H D (0.6-1.4) mg/dl Est Cr Clr Drug Dosing 10.3 ml/min eGFR 12.10 BUN/Creatinine Ratio 6.5 L (10-20) Glucose 126 H (70-99(Fasting)) mg/dl POC Glucose 129 H (70-99) mg/dl Calcium 8.2 L (8.6-10.3) mg/dl Magnesium 2.1 (1.7-2.4) mg/dl Medications Administered Current Inpatient Medications Acetaminophen (Acetaminophen 325 Mg Tab) 650 mg PO QID PRN PRN Reason: Pain Stop: 08/08/24 14:48 Last Admin: 07/19/24 02:14 Dose: 650 mg Albuterol (Albuterol Hfa 8 Gm Inhaler) 1 puffs INH Q4H PRN PRN Reason: sob Stop: 08/08/24 14:59 Last Admin: 07/13/24 21:33 Dose: 1 puffs Amlodipine Besylate (Amlodipine Besylate 5 Mg Tab) 5 mg PO BID [facility] Stop: 08/08/24 20:59 Last Admin: 07/18/24 21:10 Dose: 5 mg Aspirin (Aspirin 81 Mg Ectab) 81 mg PO BID [facility] Stop: 08/09/24 08:59 Last Admin: 07/18/24 21:09 Dose: 81 mg Carvedilol (Carvedilol 25 Mg Tab) 25 mg PO BIDM [facility] Stop: 08/10/24 20:59 Last Admin: 07/18/24 16:23 Dose: 25 mg Clopidogrel Bisulfate (Clopidogrel Bisulfate 75 Mg Tab) 75 mg PO QAM [facility] Stop: 08/09/24 08:59 Last Admin: 12/31/24 08:57 Dose: 75 mg Finasteride (Finasteride 5 Mg Tab) 5 mg PO QAM [facility] Stop: 08/09/24 08:59 Last Admin: 07/18/24 08:57 Dose: 5 mg Fluticasone/Vilanterol (Fluticasone/Vilanterol 200/25mcg 14 Puffs/Inhaler) 1 puffs INH DAILY [facility] Stop: 08/09/24 08:59 Last Admin: 07/18/24 08:56 Dose: 1 puffs Heparin Sodium (Porcine) (Heparin Sod 5,000 Unit/0.5 Ml Vial) 5,000 units SQ Q8 GERALDINE Stop: 08/08/24 14:48 Last Admin: 07/19/24 05:43 Dose: Not Given Heparin Sodium (Porcine) (Heparin 100 Unit/Ml 5ml Flush) 5 ml FLUSH PRN PRN PRN Reason: Flush Stop: 08/14/24 00:14 Hydralazine HCl (Hydralazine Tab 50 Mg Tab) 50 mg PO TID [facility] Stop: 08/15/24 08:59 Last Admin: 07/18/24 21:10 Dose: 50 mg Isosorbide Dinitrate (Isosorbide Dinitrate 5 Mg Tab) 10 mg PO TID@0700,1200,1700 [facility] Stop: 08/11/24 16:59 Last Admin: 07/18/24 16:22 Dose: 10 mg Levalbuterol HCl (Levalbuterol Hcl 0.63 Mg/3 Ml Neb) 0.63 mg NEB Q4H PRN; Protocol PRN Reason: Shortness Of Breath Or Wheezing Stop: 08/13/24 01:38 Last Admin: 07/16/24 03:01 Dose: 0.63 mg Menthol (Cough Drop (Sugar Free) Navya 24 Navya/1 Box) 1 navya BUCCAL PRN PRN PRN Reason: Cough Stop: 08/14/24 02:14 Mirtazapine (Mirtazapine Tab 15 Mg Tab) 30 mg PO HS [facility] Stop: 08/15/24 20:59 Last Admin: 07/18/24 21:10 Dose: 30 mg Nitroglycerin (Nitroglycerin Sl 0.4 Mg/Tab Tab) 0.4 mg SL UD PRN PRN Reason: Chest Pain Stop: 08/08/24 14:48 Last Admin: 07/13/24 22:43 Dose: 0.4 mg Ondansetron HCl (Ondansetron Inj 2 Mg/Ml 2 Ml Vial) 4 mg IV Q6H PRN PRN Reason: Nausea And Vomiting Stop: 08/08/24 14:48 Last Admin: 07/19/24 00:48 Dose: 4 mg Pantoprazole Sodium (Pantoprazole 40 Mg Tab) 40 mg PO QAM [facility] Stop: 08/09/24 08:59 Last Admin: 07/18/24 08:57 Dose: 40 mg Polyethylene Glycol (Polyethylene (Miralax) 17 Gm Pack) 17 gm PO DAILY [facility] Stop: 08/11/24 17:14 Last Admin: 07/18/24 08:59 Dose: 17 gm Rosuvastatin Calcium (Rosuvastatin Calcium 20 Mg Tab) 20 mg PO QPM [facility] Stop: 08/08/24 20:59 Last Admin: 07/18/24 21:09 Dose: 20 mg Sennosides (Senna 8.6 Mg Tab) 8.6 mg PO BID [facility] Stop: 08/11/24 20:59 Last Admin: 07/18/24 21:10 Dose: 8.6 mg Tamsulosin HCl (Tamsulosin Hcl 0.4 Mg Cap) 0.4 mg PO QPM [facility] Stop: 08/08/24 20:59 Last Admin: 07/18/24 21:10 Dose: 0.4 mg Tramadol HCl (Tramadol Hcl 50 Mg Tablet) 25 mg PO Q4H PRN PRN Reason: Pain Stop: 08/11/24 14:33 Last Admin: 07/14/24 22:09 Dose: 25 mg
--- NOTE | 2024-07-19 17:04 | Urology Consultation ---
Date of Consultation July 19, 2024 Assessment & Plan (1) Penile edema: I suspect that he did have a paraphimosis, but this has been addressed appropriately. Foreskin is in appropriate position. There may be some lingering edema in response to the paraphimosis, but this should resolve with time. Can maintain Garcia catheter per primary team. Would ensure that foreskin is appropriately replaced over the glans every time catheter care was performed. Urology will sign off, please call with any questions or concerns. History of Present Illness Reason for Consultation: Penile edema, possible paraphimosis Attending Physician: Anthony No MD History of Present Illness This is an uncircumcised 89-year-old male admitted to the hospital for care of renal failure and CKD, acute on chronic heart failure, acute hypoxic respiratory failure, pneumonia. He has a Garcia catheter in place allow maximal bladder drainage. He was noted by nursing to have penile edema this afternoon. On further inspection, it appeared that the foreskin was retracted and causing edema. Urology was consulted for possible paraphimosis. Upon arrival, his nurse felt confident that the paraphimosis had been reduced but wanted to be sure. The patient was not reporting any pain at that time. Garcia catheter was in place draining well. Allergies Allergy/AdvReac Type Severity Reaction Status Date / Time ciprofloxacin [From Cipro] AdvReac Vomiting Verified 09/19/20 10:27 Iodinated Contrast Media AdvReac Unknown Verified 09/19/20 10:27 Home Medications Medication Instructions Recorded Confirmed Type acetaminophen 325 mg tablet 325 mg PO QID PRN Pain 09/16/20 07/09/24 History (Tylenol) albuterol 90 mcg/actuation aerosol 90 mcg inhalation UD PRN sob 09/16/20 07/09/24 History inhaler amlodipine 5 mg tablet (Norvasc) 5 mg PO BID 09/16/20 07/09/24 History aspirin 81 mg tablet,delayed 81 mg PO DAILY 09/16/20 07/09/24 History release clopidogrel 75 mg tablet (Plavix) 75 mg PO QAM 09/16/20 07/09/24 History finasteride 5 mg tablet 5 mg PO QAM 09/16/20 07/09/24 History fluticasone 250 mcg-salmeterol 50 1 inh inhalation BID 09/16/20 07/09/24 History mcg/dose blistr powdr for inhalation (Advair Diskus) lisinopril 5 mg tablet 5 mg PO QAM 09/16/20 07/09/24 History metoprolol succinate 25 mg 25 mg PO BID 09/16/20 07/09/24 History tablet,extended release 24 hr nitroglycerin 0.4 mg sublingual 0.4 mg sublingual UD PRN Chest Pain 09/16/20 07/09/24 History tablet (Nitrostat) pantoprazole 40 mg tablet,delayed 40 mg PO QAM 09/16/20 07/09/24 History release (Protonix) rosuvastatin 20 mg tablet (Crestor) 20 mg PO QPM 09/16/20 07/09/24 History tamsulosin 0.4 mg capsule 0.4 mg PO QPM 09/16/20 07/09/24 History hydralazine 10 mg tablet 10 mg PO TID 07/09/24 07/09/24 History isosorbide dinitrate 5 mg tablet 5 mg PO QID 07/09/24 07/09/24 History Patient History Medical History Slow to wake up after anesthesia Vascular disease, peripheral BPH (benign prostatic hyperplasia) Hiatal hernia Dysphagia Belching continuous x several hours after eating/drinking GERD (gastroesophageal reflux disease) History of kidney cancer 2010 cryoablation therapy; follows with [facility] nephrology 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 Lai/Dr. Mancilla History of TIA (transient ischemic attack) 2018 History of myocardial infarction 1992 Hyperlipemia HTN (hypertension) COPD (chronic obstructive pulmonary disease) Surgical History History of tooth extraction History of vascular surgery stent LLE History of esophagogastroduodenoscopy (EGD) History of colonoscopy History of prior ablation treatment History of heart artery stent "quite a few" (2 placed 03/2019 and mult prior to) History of cardiac catheterization most recent 03/2019 at [facility] - 2 stents placed; mult caths at [facility]; mult stents (unable to recall specifics) History of coronary artery bypass graft x 3 1996 Family History Other No family history of adverse response to anesthesia Social History Smoking Status: Former smoker Second Hand Exposure: No; Do You Dip or Chew Tobacco: No; Hx Alcohol Use: No Hx Substance Use: No Preferred Language: Estonian Communication Ability: Effective Spragger Required: No Beliefs That Will Affect Care: None Current Living Situation: Spouse Feels Safe at Home: Yes Safety Concerns: Feels Safe At This Time Assistive Devices: None Review of Systems Review of Systems: 12 point review of systems negative exce pt for otherwise indicated. Physical Exam Constitutional: well developed and well nourished; no acute distress Eyes: + anicteric sclerae; pupils not irregula r Respiratory: normal respiratory effort; no respiratory distress, does not use accessory muscles and no cough Cardiovascular: well perfused Gastrointestinal (Abdomen): Inspection/Auscultation: abdomen normal to inspection; abdomen not distended Musculoskeletal: Extremities: extremities normal to inspection Skin: normal turgor; no rashes and no lesions Neurologic: moves all extremities and awake Psychiatric: Orientation: alert and oriented x 3 Genitourinary: Uncircumcised penis with orthotopic meatus, Garcia catheter in position draining appropriately. Foreskin is appropriately positioned over the glans of the penis. There is some lingering edema of both the foreskin and the glans, consistent with recent paraphimosis. Results & Data Vital Signs (Past 12 Hours) Vital Signs Temp Pulse Pulse Resp BP BP Pulse Ox 07/19/24 16:32 36.6 C 59 L 17 147/68 H 92 07/19/24 15:46 58 L 07/19/24 14:55 134/68 07/19/24 11:10 36.6 C 54 L 17 107/62 94 07/19/24 07:57 64 07/19/24 07:51 O2 Del Method O2 Flow Rate 07/19/24 16:32 Room Air 07/19/24 15:46 07/19/24 14:55 07/19/24 11:10 Nasal Cannula 4 07/19/24 07:57 07/19/24 07:51 Nasal Cannula 4 PG Care Time/CCT Total # of Minutes Spent Total Time Spent with Patient: Total time spent is greater than 50% in coordination of care (as documented) at patient's floor/unit and/or counseling patient: Coding Level of Care Code 67117 INT INP/OBS CARE MIN Diagnoses Penile edema N48.89
--- NOTE | 2024-07-19 20:26 | Nephrology Progress Note ---
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 oliguric; feeling better w/ HD stage 3 oliguric ROSALBA on CKD4 with baseline creatinine of around around mid 2's since April 2022, though renal function is labile and ranges 2.2-2.9 this timeframe. he was referred to nephro for February 2024 appt to est care but cancelled appt. Seen by cardiology Jun 2024 where he presented w/ SBP 210s, averaging 180s on home monitoring and not taking medications as rx'd. Renal u/s 07/11 w/o obstruction and w/ atrophic L kidney, and w/ multiple BL renal cysts; did have urinary retention on admission bladder scan and on 07/13 garcia had to be reinserted d/t same. this is predominantly CKD from hypertension as well as vascular disease. -cont to avoid nephrotoxic agents including NSAIDs nephrotoxic antibiotics contrast agents. -daily renal panel and CBC -garcia replaced > cont strict I/O >> he is oliguric; unlikely to respond to more lasix; f/u urology recs -cont low K diet -labs ordered for AM plan HD 07/21 >>needs [facility] treatment chair he's 89 but a good 89 at baseline; lives independently; his son is a retired oil pipe inspector helper w/ [employer]; daughter is nurse development eng w/ [employer] Clinical status reviewed in person w/ Dr No re HD and plan for possible TDC in AM; we are in agreement. (2) CHF (congestive heart failure): Plan: pt does have underlying history of combined systolic/diastolic heart failure. lno home 02 and currently on 4L consistently past 24 hr >>no more IVF >PRN lasix and inhalers >continue dialysis (3) Poorly-controlled hypertension: Plan: his blood pressure is now generally better controlled once his home blood pressure regimen was restarted. Given that he's lived in 180s systolic for months, target SBP 140-150s for now >> at goal Admission and Anticipated Discharge Date Admission Date: July 09, 2024 Subjective seen on late PM rounds; feeling better appetite better today fir st time after HD; eager to get back to hsi adn to OP routine; wants HD in [place] Review of Systems 2 Review of Systems: All systems reviewed & are unremarkable except as noted in Subjective Physical Exam 2 Constitutional: well developed, + thin, + frail appearing and cooperative; no acute distress Eyes: EOM intact bilaterally ENMT: Mouth: + dry oral mucous membranes Neck: no nuchal rigidity Respiratory: able to speak in complete sentences and + tachypneic; no labored breathing, no cough, expiratory phase not prolonged and no paradoxical thoraco- abdominal movemnt Auscultation: + diminished lung sounds and + crackles (fine) Cardiovascular: RRR, no murmur, no edema Gastrointestinal (Abdomen): Inspection/Auscultation: normal bowel sounds P ercussion/Palpation: abdomen soft Musculoskeletal: Extremities: strength 5/5 throughout Skin: no rashes, warm and dry Psychiatric: Orientation: alert and oriented x 3 (no obvious confusion in interview) Results & Data Vital Signs (Past 12 Hours) Vital Signs Temp Pulse Pulse Resp BP BP Pulse Ox 07/19/24 16:32 36.6 C 59 L 17 147/68 H 92 07/19/24 15:46 58 L 07/19/24 14:55 134/68 07/19/24 11:10 36.6 C 54 L 17 107/62 94 O2 Del Method O2 Flow Rate 07/19/24 16:32 Nasal Cannula 4 07/19/24 15:46 07/19/24 14:55 07/19/24 11:10 Nasal Cannula 4 Laboratory Results 07/18/24 18:29 07/18/24 18:29
[2024-07-20 06:09] LABS: Hematocrit (blood only) 32.6 % (42.0-52.0); Hemoglobin 10.9 g/dl (14.0-18.0); Mean Corpuscular Hemoglobin 30.9 pg (25.0-34.0); Mean Corpuscular Hgb Conc 33.4 g/dL (32.0-36.0); Mean Corpuscular Volume 92.4 fL (80.0-100.0); Mean Platelet Volume 10.8 fL (9.4-12.4); Platelet Count 168 K/uL (130-400); RDW Coefficient of Variation 14.1 % (11.5-14.5); RDW Standard Deviation 47.3 fL (36.4-46.3); Red Blood Count 3.53 M/uL (4.70-6.10); White Blood Count 6.73 K/ul (4.8-10.8)
[2024-07-20 06:27] LABS: BUN Creatinine Ratio 5.6 (10-20); Calcium 8.5 mg/dl (8.6-10.3); Magnesium 2.3 mg/dl (1.7-2.4); Phosphorus 6.2 mg/dl (2.5-4.9); Potassium 4.4 mmol/L (3.5-5.1)
--- NOTE | 2024-07-20 07:59 | Hospitalist Progress Note ---
Date of Service July 20, 2024 Assessment & Plan (1) Acute renal failure superimposed on stage 4 chronic kidney disease: (2) Acute on chronic heart failure with preserved ejection fraction: (3) Acute hypoxic respiratory failure: (4) Pneumonia: (5) Hypertension, uncontrolled: (6) BPH with urinary obstruction: (7) Decreased appetite: (8) Vascular disease, peripheral: (9) CAD (coronary artery disease): (10) Cholelithiasis: (11) Hyperkalemia: (12) Hiatal hernia: (13) Esophageal dysmotility: Plan Per previous hospitalist w/addendum Mr. Quinn is an 89-year-old man with history of CAD status post multiple stents and CABG, PAD status post bilateral common iliac stents, TIA, bilateral carotid stenosis, CKD 4, status post left kidney cryoablation, COPD, GERD and other medical problems who presented on 07/09 due to chest pain and treated for acute on chronic heart failure with preserved EF and possible pneumonia. Imaging revealed gallstones and iso poor appetite, gen surgery consulted. Ultimately HIDA scan negative for acute cholecystitis and patient poor elective surgical candidate at this time. Patient's course marked by progressive decline in renal function with hyperkalemia and oliguria as well as worsening hypoxia iso volume overload. Family discussion regarding HD 07/14 ultimately led to patient decision for HD. Patient with line placed evening of 07/14 and first HD session 07/15 morning. Patient tolerated. Also looming concern for underlying depression based upon multiple stressors, long history of reluctance to eat, and cognitive impairment rather newer in onset per family (outside of acute illness). Patient started on mirtazapine this admission. Plan to continue with HD for now and monitor electrolytes, dispo contingent on stabilization of labs and final HD plan. ------ Patient 83-year-old gentleman initially presented with what was thought to be pneumonia and decompensated heart failure. He completed a course of antibiotics for pneumonia. It was attempted to diuresis however he had acute decompensation of his kidney function to the point where he required hemodialysis. Overall the last day or 2 patient seems to be getting weaker and declining. Patient has not had a good appetite for months, trialing Remeron, however still minimal oral intake. #ROSALBA on CKD IV on HD 07/15 #Atrophic left kideny #multiple renal cysts baseline has ranged 2.2-2.9 Nephrology following -initially attempted fluid resuscitation, however, worsening volume overload -Lokelma started and continued iso hyperkalemia -Avoid nephrotoxins -Low K diet TDC in [facility] placed 07/14, first HD session 07/15 Continue HD as coordinated by nephrology Dr. Dyer will return on . Aware of consult for need of tunneled hemodialysis catheter to be placed either or Wednesday. Case management aware family requesting at the time of discharge to refer patient to go to [facility] and go to the [place] dialysis unit. #Acute hypoxic resp failure iso volume overload #Bilateral pleural effusions #Possible Pneumonia On 6 L NC -> 4L, no reported distress, declined bipap completed abx HD for volume will likely require 2 step prior to dispo cont. to monitor O 2requirement #Elevated troponin iso renal failure no chest pain reported, troponin flat at this time monitor on tele iso hyperkalemia #Acute on Chronic CHF, resolved #obstructive CAD s/p CABG 1996, CHARMAINE 2018 #Hypertensive urgency ECHO 55-60% 07/10 High sensitive troponin of 52 on admission with no delta difference BNP elevated to 1400 Diuretics held 2/2 progressive renal failure continue on coreg, amlodipine and hydralazine TID continue imdur continue asa and plavix continue statin #Cholelithiasis General surgery consulted, HIDA scan negative poor elective surgical candidate Encourage po #Poor appetite #c/f depression PHQ 13 -started on mirtazapine this admission GERDcontinue on home PPI COPDcontinue home inhalers Code status: Full DVT ppx: Hep sq Admission and Anticipated Discharge Date Admission Date: July 09, 2024 Subjective Pt see in follow up Started HD several days ago, likely tunneled line to be placed tmrw by vasc. surg. was treated for poss. pna earlier HIDA normal 2 days ago had syncopal episode, when having a BM Currently sitting up in bed in NAD, overall says he is feeling better and had an appetite yesterday eating dinner, but this AM again w/ nausea Denies any chest pain, or shortness of breath, no abd. pain Review of Systems Review of Systems: All systems reviewed & are unremarkable except as noted in Subjective Physical Exam Physical Exam: Constitutional: WD/WN elderly M in NAD HEENT: Mucous membranes moist. Temporary dialysis catheter left jugular Lungs: Decreased breath sounds with a few crackles CV: S1-S2, regular Abdomen: Soft, nontender, nondistended Extremities: No significant edema Neuro: awake, alert, No focal deficits, generalized weakness Psych: Cooperative Results & Data Results & Data Vital Signs (Past 12 Hours) Vital Signs Temp Pulse Pulse Pulse Resp BP BP 07/20/24 03:00 36.8 C 63 19 135/60 07/19/24 23:00 57 L 07/19/24 22:00 36.7 C 65 20 130/53 L 07/19/24 21:55 56 L 147/57 H Pulse Ox O2 Del Method O2 Flow Rate 07/20/24 03:00 91 Nasal Cannula 4 07/19/24 23:00 07/19/24 22:00 92 Nasal Cannula 4 07/19/24 21:55 Laboratory Results 07/20/24 Range/Units 05:47 WBC 6.73 (4.8-10.8) K/ul RBC 3.53 L (4.70-6.10) M/uL Hgb 10.9 L (14.0-18.0) g/dl Hct 32.6 L (42.0-52.0) % MCV 92.4 (80.0-100.0) fL MCH 30.9 (25.0-34.0) pg MCHC 33.4 (32.0-36.0) g/dL RDW Std Deviation 47.3 H (36.4-46.3) fL RDW Coeff of Jessica 14.1 (11.5-14.5) % Plt Count 168 (130-400) K/uL MPV 10.8 (9.4-12.4) fL Sodium 138 (136-145) mmol/L Potassium 4.4 (3.5-5.1) mmol/L Chloride 104 (98-107) mmol/L Carbon Dioxide 25 (21-32) mmol/L Anion Gap 9 (3-11) BUN 43 H (6-23) mg/dl Creatinine 7.63 H* D (0.6-1.4) mg/dl Est Cr Clr Drug Dosing 6.0 ml/min eGFR 6.32 BUN/Creatinine Ratio 5.6 L (10-20) Glucose 105 H (70-99(Fasting)) mg/dl Calcium 8.5 L (8.6-10.3) mg/dl Phosphorus 6.2 H (2.5-4.9) mg/dl Magnesium 2.3 (1.7-2.4) mg/dl Medications Administered Current Inpatient Medications Acetaminophen (Acetaminophen 325 Mg Tab) 650 mg PO QID PRN PRN Reason: Pain Stop: 08/08/24 14:48 Last Admin: 07/19/24 08:45 Dose: 650 mg Albuterol (Albuterol Hfa 8 Gm Inhaler) 1 puffs INH Q4H PRN PRN Reason: sob Stop: 08/08/24 14:59 Last Admin: 07/13/24 21:33 Dose: 1 puffs Amlodipine Besylate (Amlodipine Besylate 5 Mg Tab) [address] [facility] Stop: 08/08/24 20:59 Last Admin: 07/20/24 07:56 Dose: 5 mg Aspirin (Aspirin 81 Mg Ectab) [address] [facility] Stop: 08/09/24 08:59 Last Admin: 07/20/24 07:57 Dose: 81 mg Carvedilol (Carvedilol 25 Mg Tab) [address] [facility] Stop: 08/10/24 20:59 Last Admin: 07/20/24 07:56 Dose: 25 mg Clopidogrel Bisulfate (Clopidogrel Bisulfate 75 Mg Tab) [address] [facility] Stop: 08/09/24 08:59 Last Admin: 07/20/24 07:57 Dose: 75 mg Finasteride (Finasteride 5 Mg Tab) [address] [facility] Stop: 08/09/24 08:59 Last Admin: 07/20/24 07:56 Dose: 5 mg Fluticasone/Vilanterol (Fluticasone/Vilanterol 200/25mcg 14 Puffs/Inhaler) 1 puffs INH DAILY [facility] Stop: 08/09/24 08:59 Last Admin: 07/20/24 07:57 Dose: 1 puffs Heparin Sodium (Porcine) (Heparin 100 Unit/Ml 5ml Flush) 5 ml FLUSH PRN PRN PRN Reason: Flush Stop: 08/14/24 00:14 Heparin Sodium (Porcine) (Heparin Sod 5,000 Unit/0.5 Ml Vial) 5,000 units SQ Q8 [facility]ERAL[facility]INE Stop: 08/19/24 13:59 Heparin Sodium (Porcine) (Heparin Sod (Porcine) 1000 Unit/Ml) 1,200 units IV ONE ONE Stop: 07/20/24 08:01 Heparin Sodium (Porcine) (Heparin Sod (Porcine) 1000 Unit/Ml) [address] [facility] Stop: 07/20/24 10:01 Hydralazine HCl (Hydralazine Tab 50 Mg Tab) [address] [facility] Stop: 08/15/24 08:59 Last Admin: 07/20/24 07:57 Dose: 50 mg Isosorbide Dinitrate (Isosorbide Dinitrate 5 Mg Tab) 10 mg PO TID@0700,1200,1700 [facility] Stop: 08/11/24 16:59 Last Admin: 07/20/24 07:56 Dose: 10 mg Levalbuterol HCl (Levalbuterol Hcl 0.63 Mg/3 Ml Neb) 0.63 mg NEB Q4H PRN; Protocol PRN Reason: Shortness Of Breath Or Wheezing Stop: 08/13/24 01:38 Last Admin: 07/16/24 03:01 Dose: 0.63 mg Menthol (Cough Drop (Sugar Free) Navya 24 Navya/1 Box) 1 navya BUCCAL PRN PRN PRN Reason: Cough Stop: 08/14/24 02:14 Mirtazapine (Mirtazapine Tab 15 Mg Tab) [address] [facility] Stop: 08/15/24 20:59 Last Admin: 07/19/24 21:54 Dose: 30 mg Nitroglycerin (Nitroglycerin Sl 0.4 Mg/Tab Tab) 0.4 mg SL UD PRN PRN Reason: Chest Pain Stop: 08/08/24 14:48 Last Admin: 07/13/24 22:43 Dose: 0.4 mg Ondansetron HCl (Ondansetron Inj 2 Mg/Ml 2 Ml Vial) 4 mg IV Q6H PRN PRN Reason: Nausea And Vomiting Stop: 08/08/24 14:48 Last Admin: 07/19/24 00:48 Dose: 4 mg Pantoprazole Sodium (Pantoprazole 40 Mg Tab) [address] [facility] Stop: 08/09/24 08:59 Last Admin: 07/20/24 07:57 Dose: 40 mg Polyethylene Glycol (Polyethylene (Miralax) 17 Gm Pack) [address] [facility] Stop: 08/11/24 17:14 Last Admin: 07/20/24 07:42 Dose: Not Given Rosuvastatin Calcium (Rosuvastatin Calcium 20 Mg Tab) [address] [facility] Stop: 08/08/24 20:59 Last Admin: 07/19/24 21:55 Dose: 20 mg Sennosides (Senna 8.6 Mg Tab) 8.[address] [facility] Stop: 08/11/24 20:59 Last Admin: 07/20/24 07:42 Dose: Not Given Tamsulosin HCl (Tamsulosin Hcl 0.4 Mg Cap) 0.[address] [facility] Stop: 08/08/24 20:59 Last Admin: 07/19/24 21:55 Dose: 0.4 mg Tramadol HCl (Tramadol Hcl 50 Mg Tablet) 25 mg PO Q4H PRN PRN Reason: Pain Stop: 08/11/24 14:33 Last Admin: 07/14/24 22:09 Dose: 25 mg
--- NOTE | 2024-07-20 12:30 | Electrocardiogram Report ---
Test Reason : Blood Pressure : */* mmHG Vent. Rate : 62 BPM Atrial Rate : 62 BPM P-R Int : 176 ms QRS Dur : 94 ms QT Int : 450 ms P-R-T Axes : 49 -8 68 degrees QTcB Int : 456 ms Normal sinus rhythm with sinus arrhythmia Moderate voltage criteria for LVH, may be normal variant Borderline ECG When compared with ECG of 13-Jul-2024 21:48, [place] interval has decreased Confirmed by Bernardo Kraft ([id number]) on 07/20/2024 12:30:41 PM Referred By: REFERRED SELF Confirmed By: Bernardo Kraft
--- NOTE | 2024-07-20 13:02 | Consultation ---
Date of Consultation July 20, 2024 Assessment & Plan (1) Acute renal failure superimposed on stage 4 chronic kidney disease: We recommended insertion of a PermCath and removal of the temporary dialysis catheter. I have discussed the risks options and benefits of the procedure with the patient. The patient understands the risks options and benefits and agrees to the procedure. This will be done tomorrow in the a.m. Thank you very much for letting us participate in the care of this patient. History of Present Illness Reason for Consultation: Acute kidney injury Attending Physician: Anthony No MD History of Present Illness This is an 89-year-old gentleman who has had chronic renal insufficiency. He presented to the ED with chest pain and severe hypertension. During his hospital stay he developed worsening renal function. He was started on dialysis via a temporary dialysis catheter the left internal jugular vein. He still requires dialysis and needs to have the temporary catheter replaced with a PermCath. Allergies Allergy/AdvReac Type Severity Reaction Status Date / Time ciprofloxacin [From Cipro] AdvReac Vomiting Verified 09/19/20 10:27 Iodinated Contrast Media AdvReac Unknown Verified 09/19/20 10:27 Home Medications Medication Instructions Recorded Confirmed Type acetaminophen 325 mg tablet 325 mg PO QID PRN Pain 09/16/20 07/09/24 History (Tylenol) albuterol 90 mcg/actuation aerosol 90 mcg inhalation UD PRN sob 09/16/20 07/09/24 History inhaler amlodipine 5 mg tablet (Norvasc) 5 mg PO BID 09/16/20 07/09/24 History aspirin 81 mg tablet,delayed 81 mg PO DAILY 09/16/20 07/09/24 History release clopidogrel 75 mg tablet (Plavix) 75 mg PO QAM 09/16/20 07/09/24 History finasteride 5 mg tablet 5 mg PO QAM 09/16/20 07/09/24 History fluticasone 250 mcg-salmeterol 50 1 inh inhalation BID 09/16/20 07/09/24 History mcg/dose blistr powdr for inhalation (Advair Diskus) lisinopril 5 mg tablet 5 mg PO QAM 09/16/20 07/09/24 History metoprolol succinate 25 mg 25 mg PO BID 09/16/20 07/09/24 History tablet,extended release 24 hr nitroglycerin 0.4 mg sublingual 0.4 mg sublingual UD PRN Chest Pain 09/16/20 07/09/24 History tablet (Nitrostat) pantoprazole 40 mg tablet,delayed 40 mg PO QAM 09/16/20 07/09/24 History release (Protonix) rosuvastatin 20 mg tablet (Crestor) 20 mg PO QPM 09/16/20 07/09/24 History tamsulosin 0.4 mg capsule 0.4 mg PO QPM 09/16/20 07/09/24 History hydralazine 10 mg tablet 10 mg PO TID 07/09/24 07/09/24 History isosorbide dinitrate 5 mg tablet 5 mg PO QID 07/09/24 07/09/24 History Patient History Medical History Slow to wake up after anesthesia Vascular disease, peripheral BPH (benign prostatic hyperplasia) Hiatal hernia Dysphagia Belching continuous x several hours after eating/drinking GERD (gastroesophageal reflux disease) History of kidney cancer 2010 cryoablation therapy; follows with [facility] nephrology 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 Lai/Dr. Mancilla History of TIA (transient ischemic attack) 2018 History of myocardial infarction 1992 Hyperlipemia HTN (hypertension) COPD (chronic obstructive pulmonary disease) Surgical History History of tooth extraction History of vascular surgery stent LLE History of esophagogastroduodenoscopy (EGD) History of colonoscopy History of prior ablation treatment History of heart artery stent "quite a few" (2 placed 03/2019 and mult prior to) History of cardiac catheterization most recent 03/2019 at [facility] - 2 stents placed; mult caths at [facility]; mult stents (unable to recall specifics) History of coronary artery bypass graft x 3 1996 Family History Other No family history of adverse response to anesthesia Social History Smoking Status: Former smoker Second Hand Exposure: No; Do You Dip or Chew Tobacco: No; Hx Alcohol Use: No Hx Substance Use: No Preferred Language: Lithuanian Communication Ability: Effective 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: No Beliefs That Will Affect Care: None Current Living Situation: Spouse Feels Safe at Home: Yes Safety Concerns: Feels Safe At This Time Assistive Devices: None Review of Systems Review of Systems: All systems reviewed & are unremarkable except as noted in HPI & below Physical Exam Constitutional: WD/WN, vitals as above Respiratory: normal respiratory effort, lungs clear to auscultation Cardiovascular: RRR, no murmur, no edema Gastrointestinal (Abdomen): normal bowel sounds, soft, nontender, no hepatosplenomegaly Neurologic: CN's II-XI intact bilaterally and moves all extremities Psychiatric: A+Ox3, euthymic affect Results & Data Vital Signs (Past 12 Hours) Vital Signs Temp Pulse Pulse Resp BP BP Pulse Ox 07/20/24 11:36 36.5 C 59 L 18 144/65 H 94 07/20/24 08:05 36.4 C L 61 16 159/67 H 91 07/20/24 08:00 07/20/24 03:00 36.8 C 63 19 135/60 91 O2 Del Method O2 Flow Rate 07/20/24 11:36 Nasal Cannula 2 07/20/24 08:05 Room Air 07/20/24 08:00 Nasal Cannula 2 07/20/24 03:00 Nasal Cannula 4
[2024-07-20] MEDS: HEPARIN SOD 5,000 UNIT/0.5 ML VIAL SQ SCH (13:48)
[2024-07-20] MEDS: HEPARIN SOD (PORCINE) 1000 UNIT/ML IV ONE (14:14)
[2024-07-20] MEDS: HEPARIN SOD (PORCINE) 1000 UNIT/ML IV SCH (14:14)
--- NOTE | 2024-07-20 18:19 | Nephrology Progress Note ---
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 oligoanuric stage 3 oliguric ROSALBA on CKD4 with baseline creatinine of around around mid 2's since April 2022, though renal function is labile and ranges 2.2-2.9 this timeframe. he was referred to nephro for February 2024 appt to est care but cancelled appt. Seen by cardiology Jun 2024 where he presented w/ SBP 210s, averaging 180s on home monitoring and not taking medications as rx'd. Renal u/s 07/11 w/o obstruction and w/ atrophic L kidney, and w/ multiple BL renal cysts; did have urinary retention on admission bladder scan and on 07/13 garcia had to be reinserted d/t same. this is predominantly CKD from hypertension as well as vascular disease. -cont to avoid nephrotoxic agents including NSAIDs nephrotoxic antibiotics contrast agents. -daily renal panel and CBC -garcia replaced > cont strict I/O >> he is oliguric; unlikely to respond to more lasix; f/u urology recs -cont low K diet plan HD 07/21 after TDC placement in late am >>needs [facility] Venegas treatment chair; Case Mgt working on it he's 89 but a good 89 at baseline; lives independently; his son is a retired senior investment manager w/ [employer]; daughter is nurse remote sensing research scientist w/ [employer] Clinical status reviewed by [employer] w/ Dr No re HD and plan for TDC in AM and BP med changes; we are in agreement. Also spent about 10 minutes on phone w/ silas Eulogio reviewing patient's status at pt request. From nephro standpoint, if dialysis goes ok tomorrow and he has placement, dialysis chair (that is a lot of if's) he could be discharged (2) CHF (congestive heart failure): Plan: pt does have underlying history of combined systolic/diastolic heart failure. no home 02 and currently on 4L consistently past 24 hr >>no more IVF >PRN lasix and inhalers >continue dialysis >> we attempted HD on 06/19 but his temporary catheter is not functional; goal was to optimize further volume status; but ok to wait to am if not able to run today (3) Poorly-controlled hypertension: Plan: his blood pressure is now generally better controlled once his home blood pressure regimen was restarted. Given that he's lived in 180s systolic for months, target SBP 140-150s for now >> at goal and at times on lower side >stopped hydralazine -continue other BP meds for now Admission and Anticipated Discharge Date Admission Date: July 09, 2024 Subjective pt seen and evaluated on late afternoon rounds; no sob worsening; tolerating po; focused on d/c planning. worried about burdens on family. Review of Systems 2 Review of Systems: All systems reviewed & are unremarkable except as noted in Subjective Physical Exam 2 Constitutional: well developed, + thin, + altered mental status (not overly confused but does repeat himself), + frail appearing and cooperative; no acute distress Eyes: EOM intact bilaterally ENMT: Mouth: + dry oral mucous membranes Neck: no nuchal rigidity Respiratory: able to speak in complete sentences; no labored breathing, no cough, expiratory phase not prolonged and no paradoxical thoraco-abdominal movemnt Auscultation: + diminished lung sounds Cardiovascular: RRR, no murmur, no edema Gastrointestinal (Abdomen): Inspection/Auscultation: normal bowel sounds P ercussion/Palpation: abdomen soft Musculoskeletal: Extremities: strength 5/5 throughout Skin: no rashes, warm and dry Psychiatric: Orientation: alert and oriented x 3 (no obvious confusion in interview) Results & Data Vital Signs (Past 12 Hours) Vital Signs Temp Pulse Pulse Resp BP BP Pulse Ox 07/20/24 15:55 36.7 C 56 L 18 134/62 94 07/20/24 11:36 36.5 C 59 L 18 144/65 H 94 07/20/24 08:05 36.4 C L 61 16 159/67 H 91 07/20/24 08:00 O2 Del Method O2 Flow Rate 07/20/24 15:55 Room Air 07/20/24 11:36 Nasal Cannula 2 07/20/24 08:05 Room Air 07/20/24 08:00 Nasal Cannula 2 Laboratory Results 07/20/24 05:47 07/20/24 05:47
--- NOTE | 2024-07-21 07:47 | History & Physical Bridge Note ---
Date of Service July 21, 2024 History & Physical Bridge Note Patient for permcath insertion today. I have discussed the risks options and benefits of the procedure with the patient. The patient understands the risks options and benefits and agrees to the procedure. I have examined the patient, reviewed the History & Physical and in the interval since the performance of the History & Physical I have noted the following changes of clinical significance: no changes noted
--- NOTE | 2024-07-21 08:57 | Hospitalist Progress Note ---
Date of Service July 21, 2024 Assessment & Plan (1) Acute renal failure superimposed on stage 4 chronic kidney disease: (2) Acute on chronic heart failure with preserved ejection fraction: (3) Acute hypoxic respiratory failure: (4) Pneumonia: (5) Hypertension, uncontrolled: (6) BPH with urinary obstruction: (7) Decreased appetite: (8) Vascular disease, peripheral: (9) CAD (coronary artery disease): (10) Cholelithiasis: (11) Hyperkalemia: (12) Hiatal hernia: (13) Esophageal dysmotility: Plan Per previous hospitalist w/addendum Mr. Quinn is an 89-year-old man with history of CAD status post multiple stents and CABG, PAD status post bilateral common iliac stents, TIA, bilateral carotid stenosis, CKD 4, status post left kidney cryoablation, COPD, GERD and other medical problems who presented on 07/09 due to chest pain and treated for acute on chronic heart failure with preserved EF and possible pneumonia. Imaging revealed gallstones and iso poor appetite, gen surgery consulted. Ultimately HIDA scan negative for acute cholecystitis and patient poor elective surgical candidate at this time. Patient's course marked by progressive decline in renal function with hyperkalemia and oliguria as well as worsening hypoxia iso volume overload. Family discussion regarding HD 07/14 ultimately led to patient decision for HD. Patient with line placed evening of 07/14 and first HD session 07/15 morning. Patient tolerated. Also looming concern for underlying depression based upon multiple stressors, long history of reluctance to eat, and cognitive impairment rather newer in onset per family (outside of acute illness). Patient started on mirtazapine this admission. Plan to continue with HD for now and monitor electrolytes, dispo contingent on stabilization of labs and final HD plan. ------ Patient 83-year-old gentleman initially presented with what was thought to be pneumonia and decompensated heart failure. He completed a course of antibiotics for pneumonia. It was attempted to diuresis however he had acute decompensation of his kidney function to the point where he required hemodialysis. Overall the last day or 2 patient seems to be getting weaker and declining. Patient has not had a good appetite for months, trialing Remeron, however still minimal oral intake. #ROSALBA on CKD IV on HD 07/15 #Atrophic left kideny #multiple renal cysts baseline has ranged 2.2-2.9 Nephrology following -initially attempted fluid resuscitation, however, worsening volume overload -Lokelma started and continued iso hyperkalemia -Avoid nephrotoxins -Low K diet TDC in [facility] placed 07/14, first HD session 07/15 Continue HD as coordinated by nephrology S/p tunneled hemodialysis catheter placement on 07/21/2023 w/ vasc. surg. Dr. Dyer Case management aware family requesting at the time of discharge to refer patient to go to [facility] and go to the [place] dialysis unit. #Acute hypoxic resp failure iso volume overload #Bilateral pleural effusions #Possible Pneumonia On 6 L NC -> 4L, no reported distress, declined bipap completed abx HD for volume will likely require 2 step prior to dispo cont. to monitor O 2requirement #Elevated troponin iso renal failure no chest pain reported, troponin flat at this time monitor on tele iso hyperkalemia #Acute on Chronic CHF, resolved #obstructive CAD s/p CABG 1996, CHARMAINE 2018 #Hypertensive urgency ECHO 55-60% 07/10 High sensitive troponin of 52 on admission with no delta difference BNP elevated to 1400 Diuretics held 2/2 progressive renal failure continue on coreg, amlodipine and hydralazine TID continue imdur continue asa and plavix continue statin Afib RVR - new onset - cardiology aware and stared amiodarone - BP initially dropped after amio to SBP 60s, however pt quickly recovered, current HR 84, BP 117/55 #Cholelithiasis General surgery consulted, HIDA scan negative poor elective surgical candidate Encourage po #Poor appetite #c/f depression PHQ 13 -started on mirtazapine this admission GERDcontinue on home PPI COPDcontinue home inhalers Code status: Full DVT ppx: Hep sq Admission and Anticipated Discharge Date Admission Date: July 09, 2024 Subjective Pt seen in follow up Started HD several days ago Had tunneled line placed today w/ vasc. surg., then on HD. Pt seen on HD and doing well, feeling well. Denies any chest pain, or shortness of breath, no abd. pain Update: Later notified by cardiology that pt was in Afib w/ RVR and started amiodarone. After amio pt became hypotensive, SBP in 60s. Pt seen again at the bedside, feeling better and BP improved by then. Pt's daughter at the bedside with her . Family discussed code status and this was then changed to DNR/DNI. Review of Systems Review of Systems: All systems reviewed & are unremarkable except as noted in Subjective Physical Exam Physical Exam: Constitutional: WD/WN elderly M in NAD HEENT: Mucous membranes moist. Lungs: Decreased breath sounds with a few crackles CV: S1-S2, regular Abdomen: Soft, nontender, nondistended Extremities: No significant edema Neuro: awake, alert, No focal deficits, generalized weakness Psych: Cooperative Results & Data Results & Data Vital Signs (Past 12 Hours) Vital Signs Temp Pulse Pulse Pulse Resp BP BP 07/21/24 07:31 07/21/24 07:31 58 L 07/21/24 07:13 36.5 C 60 18 152/61 H 07/21/24 03:04 36.6 C 59 L 18 152/60 H 07/20/24 23:19 61 07/20/24 22:48 36.7 C 62 17 139/54 L Pulse Ox O2 Del Method O2 Flow Rate 07/21/24 07:31 Nasal Cannula 2 07/21/24 07:31 07/21/24 07:13 92 Nasal Cannula 1 07/21/24 03:04 91 Nasal Cannula 4 07/20/24 23:19 07/20/24 22:48 92 Nasal Cannula 4 Laboratory Results 07/21/24 Range/Units 08:27 WBC 6.86 (4.8-10.8) K/ul RBC 3.36 L (4.70-6.10) M/uL Hgb 10.2 L (14.0-18.0) g/dl Hct 30.9 L (42.0-52.0) % MCV 92.0 (80.0-100.0) fL MCH 30.4 (25.0-34.0) pg MCHC 33.0 (32.0-36.0) g/dL RDW Std Deviation 46.0 (36.4-46.3) fL RDW Coeff of Jessica 13.7 (11.5-14.5) % Plt Count 187 (130-400) K/uL MPV 10.3 (9.4-12.4) fL Sodium 137 (136-145) mmol/L Potassium 4.5 (3.5-5.1) mmol/L Chloride 104 (98-107) mmol/L Carbon Dioxide 23 (21-32) mmol/L Anion Gap 10 (3-11) BUN 56 H (6-23) mg/dl Creatinine 9.26 H* D (0.6-1.4) mg/dl Est Cr Clr Drug Dosing 5.0 ml/min eGFR 5.01 BUN/Creatinine Ratio 6.0 L (10-20) Glucose 92 (70-99(Fasting)) mg/dl Calcium 8.4 L (8.6-10.3) mg/dl Phosphorus 7.0 H (2.5-4.9) mg/dl Magnesium 2.3 (1.7-2.4) mg/dl Medications Administered Current Inpatient Medications Acetaminophen (Acetaminophen 325 Mg Tab) 650 mg PO QID PRN PRN Reason: Pain Stop: 08/08/24 14:48 Last Admin: 07/19/24 08:45 Dose: 650 mg Albuterol (Albuterol Hfa 8 Gm Inhaler) 1 puffs INH Q4H PRN PRN Reason: sob Stop: 08/08/24 14:59 Last Admin: 07/13/24 21:33 Dose: 1 puffs Amlodipine Besylate (Amlodipine Besylate 5 Mg Tab) 5 mg PO BID [facility] Stop: 08/08/24 20:59 Last Admin: 07/20/24 20:38 Dose: 5 mg Aspirin (Aspirin 81 Mg Ectab) 81 mg PO BID [facility] Stop: 08/09/24 08:59 Last Admin: 07/20/24 20:39 Dose: Not Given Carvedilol (Carvedilol 25 Mg Tab) 25 mg PO BIDM [facility] Stop: 08/10/24 20:59 Last Admin: 07/20/24 16:59 Dose: 25 mg Clopidogrel Bisulfate (Clopidogrel Bisulfate 75 Mg Tab) 75 mg PO QAM [facility] Stop: 08/09/24 08:59 Last Admin: 07/20/24 07:57 Dose: 75 mg Finasteride (Finasteride 5 Mg Tab) 5 mg PO QAM [facility] Stop: 08/09/24 08:59 Last Admin: 07/20/24 07:56 Dose: 5 mg Fluticasone/Vilanterol (Fluticasone/Vilanterol 200/25mcg 14 Puffs/Inhaler) 1 puffs INH DAILY [facility] Stop: 08/09/24 08:59 Last Admin: 07/20/24 07:57 Dose: 1 puffs Heparin Sodium (Porcine) (Heparin 100 Unit/Ml 5ml Flush) 5 ml FLUSH PRN PRN PRN Reason: Flush Stop: 08/14/24 00:14 Heparin Sodium (Porcine) (Heparin Sod 5,000 Unit/0.5 Ml Vial) 5,000 units SQ Q8 [facility] Stop: 08/19/24 13:59 Last Admin: 07/21/24 03:06 Dose: Not Given Cefazolin Sodium (Ancef 2000mg) 2,000 mg in 15 mls @ 3.75 mls/min IV PREOP ONE; Protocol Stop: 07/21/24 08:59 Isosorbide Dinitrate (Isosorbide Dinitrate 5 Mg Tab) 10 mg PO TID@0700,1200,1700 [facility] Stop: 08/11/24 16:59 Last Admin: 07/20/24 16:58 Dose: 10 mg Levalbuterol HCl (Levalbuterol Hcl 0.63 Mg/3 Ml Neb) 0.63 mg NEB Q4H PRN; Protocol PRN Reason: Shortness Of Breath Or Wheezing Stop: 08/13/24 01:38 Last Admin: 07/16/24 03:01 Dose: 0.63 mg Menthol (Cough Drop (Sugar Free) Navya 24 Navya/1 Box) 1 navya BUCCAL PRN PRN PRN Reason: Cough Stop: 08/14/24 02:14 Mirtazapine (Mirtazapine Tab 15 Mg Tab) 30 mg PO HS [facility] Stop: 08/15/24 20:59 Last Admin: 07/20/24 20:39 Dose: 30 mg Nitroglycerin (Nitroglycerin Sl 0.4 Mg/Tab Tab) 0.4 mg SL UD PRN PRN Reason: Chest Pain Stop: 08/08/24 14:48 Last Admin: 07/13/24 22:43 Dose: 0.4 mg Ondansetron HCl (Ondansetron Inj 2 Mg/Ml 2 Ml Vial) 4 mg IV Q6H PRN PRN Reason: Nausea And Vomiting Stop: 08/08/24 14:48 Last Admin: 07/20/24 20:33 Dose: 4 mg Pantoprazole Sodium (Pantoprazole 40 Mg Tab) 40 mg PO QAM [facility] Stop: 08/09/24 08:59 Last Admin: 07/20/24 07:57 Dose: 40 mg Polyethylene Glycol (Polyethylene (Miralax) 17 Gm Pack) 17 gm PO DAILY [facility] Stop: 08/11/24 17:14 Last Admin: 07/20/24 07:42 Dose: Not Given Rosuvastatin Calcium (Rosuvastatin Calcium 20 Mg Tab) 20 mg PO QPM [facility] Stop: 08/08/24 20:59 Last Admin: 07/20/24 20:38 Dose: 20 mg Sennosides (Senna 8.6 Mg Tab) 8.6 mg PO BID [facility] Stop: 08/11/24 20:59 Last Admin: 07/20/24 20:39 Dose: Not Given Tamsulosin HCl (Tamsulosin Hcl 0.4 Mg Cap) 0.4 mg PO QPM [facility] Stop: 08/08/24 20:59 Last Admin: 07/20/24 20:39 Dose: 0.4 mg Tramadol HCl (Tramadol Hcl 50 Mg Tablet) 25 mg PO Q4H PRN PRN Reason: Pain Stop: 08/11/24 14:33 Last Admin: 07/14/24 22:09 Dose: 25 mg
[2024-07-21 09:19] LABS: Hematocrit (blood only) 30.9 % (42.0-52.0); Hemoglobin 10.2 g/dl (14.0-18.0); Mean Corpuscular Hemoglobin 30.4 pg (25.0-34.0); Mean Platelet Volume 10.3 fL (9.4-12.4); Platelet Count 187 K/uL (130-400); RDW Coefficient of Variation 13.7 % (11.5-14.5); Red Blood Count 3.36 M/uL (4.70-6.10); White Blood Count 6.86 K/ul (4.8-10.8)
[2024-07-21] MEDS: ceFAZolin 2000MG 2,000 MG/15 ML SYR IV ONE (09:44)
--- NOTE | 2024-07-21 09:50 | Nephrology Progress Note ---
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 oligoanuric stage 3 oliguric ROSALBA on CKD4 with baseline creatinine of around around mid 2's since April 2022, though renal function is labile and ranges 2.2-2.9 this timeframe. he was referred to nephro for February 2024 appt to est care but cancelled appt. Seen by cardiology Jun 2024 where he presented w/ SBP 210s, averaging 180s on home monitoring and not taking medications as rx'd. Renal u/s 07/11 w/o obstruction and w/ atrophic L kidney, and w/ multiple BL renal cysts; did have urinary retention on admission bladder scan and on 07/13 garcia had to be reinserted d/t same. this is predominantly CKD from hypertension as well as vascular disease. -cont to avoid nephrotoxic agents including NSAIDs nephrotoxic antibiotics con trast agents. -daily renal panel and CBC -garcia replaced > cont strict I/O >> he is oliguric; unlikely to respond to more lasix; f/u urology recs -cont low K diet plan HD later today after TDC placement. >>needs [facility] treatment chair; Case Mgt working on it he's 89 but a good 89 at baseline; lives independently; his son is a retired cup trimming machine operator w/ [employer]; daughter is nurse admeasurer w/ [employer] Clinical status reviewed by [employer]Text w/ Dr No re HD and plan for TDC in AM and BP med changes; we are in agreement. Also spent about 10 minutes on phone w/ son Eulogio reviewing patient's status at pt request. From nephro standpoint, if dialysis goes ok tomorrow and he has placement, dialysis chair (that is a lot of if's) he could be discharged (2) CHF (congestive heart failure): Plan: pt does have underlying history of combined systolic/diastolic heart failure. no home 02 and currently on 4L consistently past 24 hr PRN lasix and inhalers (3) Poorly-controlled hypertension: Plan: his blood pressure is now generally better controlled once his home blood pressure regimen was restarted. Given that he's lived in 180s systolic for months, target SBP 140-150s for now >> at goal and at times on lower side >stopped hydralazine -continue other BP meds for now Subjective pt seen and evaluated on late afternoon rounds; no sob worsening; tolerating po; focused on d/c planning. worried about burdens on family. Review of Systems Review of Systems: All systems reviewed & are unremarkable except as noted in Subjective Physical Exam Constitutional: well developed, + thin, + altered mental status (not overly confused but does repeat himself), + frail appearing and cooperative; no acute distress Eyes: EOM intact bilaterally ENMT: Mouth: + dry oral mucous membranes Neck: no nuchal rigidity Respiratory: able to speak in complete sentences; no labored breathing, no cough, expiratory phase not prolonged and no paradoxical thoraco-abdominal movemnt Auscultation: + diminished lung sounds Cardiovascular: RRR, no murmur, no edema Gastrointestinal (Abdomen): Inspection/Auscultation: normal bowel sounds Percussion/Palpation: abdomen soft Musculoskeletal: Extremities: strength 5/5 throughout Skin: no rashes, warm and dry Psychiatric: Orientation: alert and oriented x 3 (no obvious confusion in i nterview) Results & Data Vital Signs (Past 12 Hours) Vital Signs Temp Pulse Pulse Pulse Resp BP BP 07/21/24 08:55 37.0 C 90 22 174/67 H 07/21/24 07:31 07/21/24 07:31 58 L 07/21/24 07:13 36.5 C 60 18 152/61 H 07/21/24 03:04 36.6 C 59 L 18 152/60 H 07/20/24 23:19 61 07/20/24 22:48 36.7 C 62 17 139/54 L Pulse Ox O2 Del Method O2 Flow Rate 07/21/24 08:55 92 Nasal Cannula 2 07/21/24 07:31 Nasal Cannula 2 07/21/24 07:31 07/21/24 07:13 92 Nasal Cannula 1 07/21/24 03:04 91 Nasal Cannula 4 07/20/24 23:19 07/20/24 22:48 92 Nasal Cannula 4
[2024-07-21 09:54] LABS: Calcium 8.4 mg/dl (8.6-10.3); Magnesium 2.3 mg/dl (1.7-2.4); Potassium 4.5 mmol/L (3.5-5.1)
--- NOTE | 2024-07-21 10:04 | Pre Anesthesia Assessment ---
Date of Service July 21, 2024 Pre Sedation Assessment Vital Signs Temp Pulse Pulse Pulse Resp BP BP 07/21/24 08:55 37.0 C 90 22 174/67 H 07/21/24 07:31 07/21/24 07:31 58 L 07/21/24 07:13 36.5 C 60 18 152/61 H 07/21/24 03:04 36.6 C 59 L 18 152/60 H 07/20/24 23:19 61 07/20/24 22:48 36.7 C 62 17 139/54 L 07/20/24 20:34 36.8 C 58 L 22 157/66 H 07/20/24 20:00 07/20/24 15:55 36.7 C 56 L 18 134/62 07/20/24 11:36 36.5 C 59 L 18 144/65 H Pulse Ox O2 Del Method O2 Flow Rate 07/21/24 08:55 92 Nasal Cannula 2 07/21/24 07:31 Nasal Cannula 2 07/21/24 07:31 07/21/24 07:13 92 Nasal Cannula 1 07/21/24 03:04 91 Nasal Cannula 4 07/20/24 23:19 07/20/24 22:48 92 Nasal Cannula 4 07/20/24 20:34 92 Nasal Cannula 4 07/20/24 20:00 Nasal Cannula 2 07/20/24 15:55 94 Room Air 07/20/24 11:36 94 Nasal Cannula 2 Cardiovascular RRR, no murmur, no edema Respiratory normal respiratory effort, lungs clear to auscultation Pre-Sedation Airway Assessment Smoking Status: Former smoker Hx Sleep Apnea: No Short, Thick Neck: No Thyromental Distance: > or= 3.5 Finger Breadths Oral Cavity: + WNL Mallampati Class: II ASA: ASA3 NPO Status Date of Last Intake of Fluids: 07/20/24 Time of Last Intake of Fluids: 22:00 Date of Last Intake of Solid Food: 07/20/24 Time of Last Intake of Solid Foods: 19:00 Procedure Planning Contraindications for Sedation: none Current Medications Reviewed: Yes Notes The planned sedation has been discussed with the patient. Informed Consent was obtained. I have identified the patient, determined the appropriateness of sedation and have assessed the patient immediately prior to the procedure. All medicine(s) and interventions are by my order.
[2024-07-21] MEDS: MIDAZOLAM HCL 1 MG/ML 2ML VIAL ONE (10:19)
[2024-07-21] MEDS: fentaNYL citrate PF 100 MCG/2 ML VIAL ONE (10:19)
[2024-07-21] MEDS: LIDOCAINE 1% LOCAL 20 ML VIAL ONE (10:20)
--- NOTE | 2024-07-21 10:32 | Operative Report ---
Post Operative Report Pre & Post Diagnosis Operation Date: 07/21/24 11:10 Pre-Op Diagnosis: Acute Kidney Injury Post-Op Diagnosis: Acute Kidney Injury I identified the patient and participated in the time-out.: Yes Procedure Operation Date: 07/21/24 11:10 Actual Procedures p Insertion of Perm Catheter, Right Internal Jugular Approach, Ultrasound Locali zation of Right Internal Jugular Vein, Fluoroscopy for Positioning, Removal of left int jug temporary dialysis catheter, Modeate Sedation 10:1029 - Gene Dyer MD Surgeon Gene Dyer MD Remote Ruby On Rails Developer none Estimated Blood Loss 5 Findings Consistent with Post-Op Diagnosis Specimens none Anesthesia Type RN Sedation Complications none Disposition Accompanied Patient To Recovery: No Disposition: Recovery Room Indications This is an 89-year-old gentleman who is chronic renal disease of with acute kidney injury in need of dialysis. PermCath was recommended. He does have a temporary dialysis catheter in place for dialysis use at present. I have discussed the risks options and benefits of the procedure with the patient. The patient understands the risks options and benefits and agrees to the procedure. Description of Procedure Patient was taken to the angio suite and placed in the supine position. The right side of the neck and chest wall were prepped and draped in a sterile manner. The patient was identified and a timeout performed. Local anesthesia was then administered to the appropriate areas of the neck and chest wall. Ultrasound was then used to locate the right internal jugular vein. The vein was not visible and appeared to be clotted however the external jugular vein was seen and was extremely large. The vein compressed easily, had no filing defects, and was patent. The right external jugular vein was then punctured under direct ultrasound imaging. A guidewire was then passed centrally under fluoroscopic imaging. A stab wound was then made in the anterior chest wall and a 19 cm permcath was passed from the stab wound on the chest wall to the puncture site on the neck. The puncture site was then dilated till the 14Fr peel away sheath was inserted. The permcath was then inserted through the sheath to a central position in the distal superior vena cava. The peel away sheath was then removed. The catheter was then sutured in place using nylon ortiz tures. The puncture was then closed using a 4-0 Vicryl subcuticular suture. Dermabond was used for a dressing on the puncture site. Both ports aspirated and flushed easily and were then packed with heparin. A sterile dressing was applied to the catheter. The patient left the operation room in satisfactory condition and tolerated the procedure well. All needle and sponge counts were correct at the end of the procedure. I attest to the content of the Intraoperative Record and any orders documented therein. Any exceptions are noted below.
--- NOTE | 2024-07-21 10:32 | Post Anesthesia Assessment ---
Date of Service July 21, 2024 Post Sedation Assessment Vital Signs Temp Pulse Pulse Pulse Resp BP BP 07/21/24 10:30 60 16 145/64 H 07/21/24 10:25 60 16 145/66 H 07/21/24 10:20 58 L 16 152/65 H 07/21/24 10:15 60 16 164/71 H 07/21/24 10:10 61 16 176/76 H 07/21/24 08:55 37.0 C 90 22 174/67 H 07/21/24 07:31 07/21/24 07:31 58 L 07/21/24 07:13 36.5 C 60 18 152/61 H 07/21/24 03:04 36.6 C 59 L 18 152/60 H 07/20/24 23:19 61 07/20/24 22:48 36.7 C 62 17 139/54 L 07/20/24 20:34 36.8 C 58 L 22 157/66 H 07/20/24 20:00 07/20/24 15:55 36.7 C 56 L 18 134/62 07/20/24 11:36 36.5 C 59 L 18 144/65 H Pulse Ox O2 Del Method O2 Flow Rate 07/21/24 10:30 95 Oxymask 4 07/21/24 10:25 95 Oxymask 4 07/21/24 10:20 95 Oxymask 4 07/21/24 10:15 95 Oxymask 4 07/21/24 10:10 95 Oxymask 4 07/21/24 08:55 92 Nasal Cannula 2 07/21/24 07:31 Nasal Cannula 2 07/21/24 07:31 07/21/24 07:13 92 Nasal Cannula 1 07/21/24 03:04 91 Nasal Cannula 4 07/20/24 23:19 07/20/24 22:48 92 Nasal Cannula 4 07/20/24 20:34 92 Nasal Cannula 4 07/20/24 20:00 Nasal Cannula 2 07/20/24 15:55 94 Room Air 07/20/24 11:36 94 Nasal Cannula 2 Recovery Score Activity: Moves 4 extremities Respiration: Deep Breath/Cough Circulation: +/-20% PreAnes Value Consciousness: Arouseable (by name) Oxygen Saturation: O2 needed for >90% Post Anesthesia Score: 8 Discharge Sedation Level of Care: Fast Track Phase II Post Sedation Plan On clinical assessment, the patient appears to have tolerated the sedation without complications. Patient is recovering as anticipated. Patient will continue to be monitored by nursing and may be discharged when sedation discharge criteria are met per below protocol. Upon Completions of procedure up to 15 minutes continue every 5 minute vital signs and the P.A.R. score; then discharge to a Phase I or Fast Track to Phase II per the following guidelines: * Discharge Patient to appropriate Phase II area if PAR is 8 or greater or return to pre- procedure baseline. The post - procedure orders will be as directed. * If PAR score is less than 8 or not return to pre-procedure baseline then patient will follow Phase I monitoring till PAR is reached for Phase II. The Phase I may be done in procedure room or may call to secure a Phase I area. * If naloxone or flumazenil are used for reversal, hold in Phase I for continued monitoring from when last reversal dose was given for a minimum of 60 minutes or longer pending the nurse and/or physician discretion of patient condition before discharge to Phase II. Please call the Sedation Physician to re-evaluate and complete post-note for discharge to Phase II area. Do NOT discharge from procedure sedation or Phase 1 until post- sedation evaluation note is complete by procedure /sedation MD Sedation Discharge Instructions to be given to the patient at discharge to home.
[2024-07-21] MEDS: HEPARIN SOD (PORCINE) 5,000 UNITS/ML VIAL ONE (14:53)
[2024-07-21] MEDS: METOPROLOL TARTRATE 1 MG/ML VIAL IV STA (16:24)
[2024-07-21] MEDS ORDERED: AMIODARONE IV BOLUS & DRIP IV STA (16:51)
[2024-07-21] MEDS ORDERED: STAT IV Infusion **Titration per Protocol STA (16:51)
[2024-07-21] MEDS ORDERED: 0.2 MICRON FILTER SET 1 EACH IV STA (16:51)
--- NOTE | 2024-07-21 16:58 | Cardiology Progress Note ---
Date of Service July 21, 2024 Assessment & Plan (1) Atrial fibrillation with rapid ventricular response: Plan: Patient already received evening dose of carvedilol 25 mg. He subsequently received a dose of metoprolol 5 mg IV x 1. Rates are now improved down to the 80s. Blood pressure stable. He has only been in atrial fibrillation for a few hours. Given his recent procedure, would prefer to avoid anticoagulation if at all possible acutely in an effort to avoid hematoma. Patient has history of coronary disease, CABG, peripheral arterial disease and a past TIA. His [id number] score is at least a 6 given his risk factors. I would speculate that perhaps atrial fibrillation is present due to transient cardiac irritation during the catheter exchange. Will proceed with an amiodarone infusion which I think you will tolerate well and it typically does not lower the blood pressure. The infusion is to be discontinued if his heart rate drops below 60 bpm or blood pressure less than 100 mmHg. I think it is reasonable to proceed with amiodarone infusion for acute rhythm control in the absence of anticoagulation within the first 24 hours of the atrial fibrillation with minimal risk of embolic Stroke or systemic embolism. Discussed case with his registered nurse as well as attending hospitalist, Dr. No. Admission and Anticipated Discharge Date Admission Date: July 09, 2024 Subjective Patient seen in room follow-up cardiology assessment with noted finding of atrial fibrillation on telemetry. Earlier today prior to 830 the patient was noted to have a rhythm of sinus rhythm with premature atrial contractions on telemetry. He went to the vascular surgery operating room for catheter exchange and subsequently went to his dialysis session and returned to the telemetry floor and was placed back on the monitor at 1434. When he arrived back to his room he was noted to be in atrial fibrillation with mildly elevated ventricular rate at rest, ventricular rate 100-122 bpm per my observation. Patient was asymptomatic during my assessment. He had no subjective sensation of an irregular heartbeat. Review of Systems Review of Systems: All systems reviewed & are unremarkable except as noted in HPI & below Physical Exam Physical Exam: General: no acute distress and stated age, Thin Eyes: conjunctiva are pink and non-injected, sclera clear Neck: normal jugular venous pulse, no hepatojugular reflux, Right side tunneled catheter noted without any erythema or hematoma at site Chest: normal shape and normal respiratory effort Lungs: clear to auscultation and percussion Cardiac Exam: - Irregular rhythm, no murmurs Abdomen: abdomen soft, non-tender, no abnormal masses and no hepatosplenomegaly Musculoskeletal: no gait disturbance, no weakness Extremities: no edema and no cyanosis Neuro:awake, conversant, follows commands, no focal motor deficits Results & Data Vital Signs (Past 12 Hours) Vital Signs Temp Pulse Pulse Pulse Pulse Resp BP 07/21/24 16:39 87 117/71 07/21/24 16:24 110 H 136/88 07/21/24 15:23 94 H 07/21/24 14:37 36.5 C 107 H 19 07/21/24 14:31 36.5 C 73 07/21/24 14:00 68 147/91 H 07/21/24 13:30 55 L 151/74 H 07/21/24 13:00 55 L 145/70 H 07/21/24 12:30 56 L 142/61 H 07/21/24 12:00 55 L 151/70 H 07/21/24 11:30 55 L 145/70 H 07/21/24 11:00 58 L 150/70 H 07/21/24 10:48 60 153/70 H 07/21/24 10:41 36.4 C L 57 L 07/21/24 10:30 60 16 07/21/24 10:25 60 16 07/21/24 10:20 58 L 16 07/21/24 10:15 60 16 07/21/24 10:10 61 16 07/21/24 08:55 37.0 C 90 22 07/21/24 07:31 07/21/24 07:31 58 L 07/21/24 07:13 36.5 C 60 18 BP Pulse Ox O2 Del Method O2 Flow Rate 07/21/24 16:39 07/21/24 16:24 07/21/24 15:23 07/21/24 14:37 136/88 94 Nasal Cannula 2 07/21/24 14:31 147/79 H 07/21/24 14:00 07/21/24 13:30 07/21/24 13:00 07/21/24 12:30 07/21/24 12:00 07/21/24 11:30 07/21/24 11:00 07/21/24 10:48 07/21/24 10:41 07/21/24 10:30 145/64 H 95 Oxymask 4 07/21/24 10:25 145/66 H 95 Oxymask 4 07/21/24 10:20 152/65 H 95 Oxymask 4 07/21/24 10:15 164/71 H 95 Oxymask 4 07/21/24 10:10 176/76 H 95 Oxymask 4 07/21/24 08:55 174/67 H 92 Nasal Cannula 2 07/21/24 07:31 Nasal Cannula 2 07/21/24 07:31 07/21/24 07:13 152/61 H 92 Nasal Cannula 1
[2024-07-21] MEDS: AMIODARONE / D5W 150 MG/100 ML BAG IV STA (17:05)
[2024-07-21] MEDS: SODIUM CHLORIDE 0.9% 250 ML IV ONE (17:22)
[2024-07-21] MEDS: AMIODARONE / D5W 360 MG/200 ML BAG IV ONE (17:28)
[2024-07-21] MEDS ORDERED: AMIODARONE / D5W 360 MG/200 ML BAG IV SCH (23:00)
[2024-07-22 07:14] LABS: Hematocrit (blood only) 31.7 % (42.0-52.0); Hemoglobin 10.9 g/dl (14.0-18.0); Mean Corpuscular Hemoglobin 31.2 pg (25.0-34.0); Mean Corpuscular Hgb Conc 34.4 g/dL (32.0-36.0); Mean Corpuscular Volume 90.8 fL (80.0-100.0); Mean Platelet Volume 10.5 fL (9.4-12.4); Platelet Count 176 K/uL (130-400); RDW Coefficient of Variation 13.6 % (11.5-14.5); Red Blood Count 3.49 M/uL (4.70-6.10); White Blood Count 7.23 K/ul (4.8-10.8)
[2024-07-22 08:03] LABS: BUN Creatinine Ratio 5.9 (10-20); Calcium 8.3 mg/dl (8.6-10.3); Magnesium 2.2 mg/dl (1.7-2.4); Phosphorus 4.9 mg/dl (2.5-4.9); Potassium 4.1 mmol/L (3.5-5.1)
--- NOTE | 2024-07-22 08:26 | Hospitalist Progress Note ---
Date of Service July 22, 2024 Assessment & Plan (1) Acute renal failure superimposed on stage 4 chronic kidney disease: (2) Acute on chronic heart failure with preserved ejection fraction: (3) Acute hypoxic respiratory failure: (4) Pneumonia: (5) Hypertension, uncontrolled: (6) BPH with urinary obstruction: (7) Decreased appetite: (8) Vascular disease, peripheral: (9) CAD (coronary artery disease): (10) Cholelithiasis: (11) Hyperkalemia: (12) Hiatal hernia: (13) Esophageal dysmotility: Plan Per previous hospitalist w/addendum Mr. Quinn is an 89-year-old man with history of CAD status post multiple stents and CABG, PAD status post bilateral common iliac stents, TIA, bilateral carotid stenosis, CKD 4, status post left kidney cryoablation, COPD, GERD and other medical problems who presented on 07/09 due to chest pain and treated for acute on chronic heart failure with preserved EF and possible pneumonia. Imaging revealed gallstones and iso poor appetite, gen surgery consulted. Ultimately HIDA scan negative for acute cholecystitis and patient poor elective surgical candidate at this time. Patient's course marked by progressive decline in renal function with hyperkalemia and oliguria as well as worsening hypoxia iso volume overload. Family discussion regarding HD 07/14 ultimately led to patient decision for HD. Patient with line placed evening of 07/14 and first HD session 07/15 morning. Patient tolerated. Also looming concern for underlying depression based upon multiple stressors, long history of reluctance to eat, and cognitive impairment rather newer in onset per family (outside of acute illness). Patient started on mirtazapine this admission. Now s/p tunneled line placement w/ vasc. surgery. #ROSALBA on CKD IV on HD 07/15 #Atrophic left kideny #multiple renal cysts baseline has ranged 2.2-2.9 Nephrology following -initially attempted fluid resuscitation, however, worsening volume overload -Lokelma started and continued iso hyperkalemia -Avoid nephrotoxins -Low K diet TDC in [facility] placed 07/14, first HD session 07/15 Continue HD as coordinated by nephrology S/p tunneled hemodialysis catheter placement on 07/21/2023 w/ vasc. surg. Dr. Dyer Case management aware family requesting at the time of discharge to refer patient to go to [facility] and go to the [place] dialysis unit. PT/OT evals pending #Acute hypoxic resp failure iso volume overload #Bilateral pleural effusions #Possible Pneumonia On 6 L NC -> 4L ->2L , no reported distress, declined bipap completed abx HD for volume will likely require 2 step prior to dispo cont. to monitor O 2requirement #Elevated troponin iso renal failure no chest pain reported, troponin flat at this time monitor on tele iso hyperkalemia #Acute on Chronic CHF, resolved #obstructive CAD s/p CABG 1996, CHARMAINE 2018 #Hypertensive urgency ECHO 55-60% 07/10 High sensitive troponin of 52 on admission with no delta difference BNP elevated to 1400 Diuretics held 2/2 progressive renal failure continue on coreg, amlodipine and hydralazine TID continue imdur continue asa and plavix continue statin Afib RVR - new onset - cardiology aware and stared amiodarone - BP initially dropped after amio to SBP 60s, however pt quickly recovered - currently back to sinus, cont. coreg #Cholelithiasis General surgery consulted, HIDA scan negative poor elective surgical candidate Encourage po #Poor appetite #c/f depression PHQ 13 -started on mirtazapine this admission GERDcontinue on home PPI COPDcontinue home inhalers Code status: Full DVT ppx: Hep sq Admission and Anticipated Discharge Date Admission Date: July 09, 2024 Subjective Pt seen in follow up Started HD several days ago Had tunneled line placed yesterday w/ vasc. surg., then had HD. Developed Afib RVR -> now back to sinus rhythm. Cardiology following. Denies any chest pain, or shortness of breath, no abd. pain Family discussed code status yesterday and this was then changed to DNR/DNI. Review of Systems Review of Systems: All systems reviewed & are unremarkable except as noted in Subjective Physical Exam Physical Exam: Constitutional: WD/WN elderly M in NAD HEENT: Mucous membranes moist. Lungs: Decreased breath sounds with a few crackles CV: regular Abdomen: Soft, nontender, nondistended Extremities: No significant edema Neuro: awake, alert, No focal deficits, generalized weakness Psych: Cooperative Results & Data Results & Data Vital Signs (Past 12 Hours) Vital Signs Temp Pulse Pulse Pulse Resp BP Pulse Ox 07/22/24 07:28 36.9 C 58 L 18 150/69 H 94 07/22/24 04:05 36.8 C 58 L 16 133/64 93 07/21/24 23:13 36.9 C 62 18 141/57 H 91 07/21/24 21:44 56 L O2 Del Method O2 Flow Rate 07/22/24 07:28 Nasal Cannula 2 07/22/24 04:05 Nasal Cannula 2 07/21/24 23:13 Nasal Cannula 1 07/21/24 21:44 Laboratory Results 07/22/24 07/21/24 Range/Units 06:41 08:27 WBC 7.23 6.86 (4.8-10.8) K/ul RBC 3.49 L 3.36 L (4.70-6.10) M/uL Hgb 10.9 L 10.2 L (14.0-18.0) g/dl Hct 31.7 L 30.9 L (42.0-52.0) % MCV 90.8 92.0 (80.0-100.0) fL MCH 31.2 30.4 (25.0-34.0) pg MCHC 34.4 33.0 (32.0-36.0) g/dL RDW Std Deviation 45.0 46.0 (36.4-46.3) fL RDW Coeff of Jessica 13.6 13.7 (11.5-14.5) % Plt Count 176 187 (130-400) K/uL MPV 10.5 10.3 (9.4-12.4) fL Sodium 137 137 (136-145) mmol/L Potassium 4.1 4.5 (3.5-5.1) mmol/L Chloride 103 104 (98-107) mmol/L Carbon Dioxide 27 23 (21-32) mmol/L Anion Gap 7 10 (3-11) BUN 32 H D 56 H (6-23) mg/dl Creatinine 5.45 H* D 9.26 H* D (0.6-1.4) mg/dl Est Cr Clr Drug Dosing 8.0 5.0 ml/min eGFR 9.46 5.01 BUN/Creatinine Ratio 5.9 L 6.0 L (10-20) Glucose 102 H 92 (70-99(Fasting)) mg/dl Calcium 8.3 L 8.4 L (8.6-10.3) mg/dl Phosphorus 4.9 D 7.0 H (2.5-4.9) mg/dl Magnesium 2.2 2.3 (1.7-2.4) mg/dl Medications Administered Current Inpatient Medications Acetaminophen (Acetaminophen 325 Mg Tab) 650 mg PO QID PRN PRN Reason: Pain Stop: 08/08/24 14:48 Last Admin: 07/19/24 08:45 Dose: 650 mg Albuterol (Albuterol Hfa 8 Gm Inhaler) 1 puffs INH Q4H PRN PRN Reason: sob Stop: 08/08/24 14:59 Last Admin: 07/13/24 21:33 Dose: 1 puffs Amlodipine Besylate (Amlodipine Besylate 5 Mg Tab) 5 mg PO BID [facility] Stop: 08/08/24 20:59 Last Admin: 07/22/24 08:06 Dose: 5 mg Aspirin (Aspirin 81 Mg Ectab) 81 mg PO BID [facility] Stop: 08/09/24 08:59 Last Admin: 07/22/24 08:06 Dose: 81 mg Carvedilol (Carvedilol 25 Mg Tab) 25 mg PO BIDM [facility] Stop: 08/10/24 20:59 Last Admin: 07/22/24 08:06 Dose: 25 mg Clopidogrel Bisulfate (Clopidogrel Bisulfate 75 Mg Tab) 75 mg PO QAM [facility] Stop: 08/09/24 08:59 Last Admin: 07/22/24 08:06 Dose: 75 mg Finasteride (Finasteride 5 Mg Tab) 5 mg PO QAM [facility] Stop: 08/09/24 08:59 Last Admin: 07/22/24 08:06 Dose: 5 mg Fluticasone/Vilanterol (Fluticasone/Vilanterol 200/25mcg 14 Puffs/Inhaler) 1 puffs INH DAILY [facility] Stop: 08/09/24 08:59 Last Admin: 07/22/24 08:06 Dose: 1 puffs Heparin Sodium (Porcine) (Heparin 100 Unit/Ml 5ml Flush) 5 ml FLUSH PRN PRN PRN Reason: Flush Stop: 08/14/24 00:14 Heparin Sodium (Porcine) (Heparin Sod 5,000 Unit/0.5 Ml Vial) 5,000 units SQ Q8 [facility] Stop: 08/19/24 13:59 Last Admin: 07/22/24 05:41 Dose: Not Given Isosorbide Dinitrate (Isosorbide Dinitrate 5 Mg Tab) 10 mg PO TID@0700,1200,170 0 [facility] Stop: 08/11/24 16:59 Last Admin: 07/22/24 08:05 Dose: 10 mg Levalbuterol HCl (Levalbuterol Hcl 0.63 Mg/3 Ml Neb) 0.63 mg NEB Q4H PRN; Protocol PRN Reason: Shortness Of Breath Or Wheezing Stop: 08/13/24 01:38 Last Admin: 07/16/24 03:01 Dose: 0.63 mg Menthol (Cough Drop (Sugar Free) Navya 24 Navya/1 Box) 1 navya BUCCAL PRN PRN PRN Reason: Cough Stop: 08/14/24 02:14 Mirtazapine (Mirtazapine Tab 15 Mg Tab) 30 mg PO HS [facility] Stop: 08/15/24 20:59 Last Admin: 07/21/24 20:28 Dose: 30 mg Nitroglycerin (Nitroglycerin Sl 0.4 Mg/Tab Tab) 0.4 mg SL UD PRN PRN Reason: Chest Pain Stop: 08/08/24 14:48 Last Admin: 07/13/24 22:43 Dose: 0.4 mg Pantoprazole Sodium (Pantoprazole 40 Mg Tab) 40 mg PO QAM [facility] Stop: 08/09/24 08:59 Last Admin: 07/22/24 08:06 Dose: 40 mg Polyethylene Glycol (Polyethylene (Miralax) 17 Gm Pack) 17 gm PO DAILY [facility] Stop: 08/11/24 17:14 Last Admin: 07/22/24 08:07 Dose: Not Given Rosuvastatin Calcium (Rosuvastatin Calcium 20 Mg Tab) 20 mg PO QPM [facility] Stop: 08/08/24 20:59 Last Admin: 07/21/24 20:28 Dose: 20 mg Sennosides (Senna 8.6 Mg Tab) 8.6 mg PO BID [facility] Stop: 08/11/24 20:59 Last Admin: 07/22/24 08:07 Dose: Not Given Tamsulosin HCl (Tamsulosin Hcl 0.4 Mg Cap) 0.4 mg PO QPM [facility] Stop: 08/08/24 20:59 Last Admin: 07/21/24 20:28 Dose: 0.4 mg Tramadol HCl (Tramadol Hcl 50 Mg Tablet) 25 mg PO Q4H PRN PRN Reason: Pain Stop: 08/11/24 14:33 Last Admin: 07/14/24 22:09 Dose: 25 mg
--- NOTE | 2024-07-22 11:50 | Cardiology Progress Note ---
Date of Service July 22, 2024 Assessment & Plan (1) Atrial fibrillation with rapid ventricular response: Plan: Continue Coreg Hold off on anticoagulation unless has recurrent AF. Admission and Anticipated Discharge Date Admission Date: July 09, 2024 Subjective Patient seen in follow up. Was noted to be in atrial fibrillation (new diagnosis, PM of 07/21). Received scheduled coreg 25 mg, then metoprolol 5 mg IV, then amiodarone bolus. Developed transient symptomatic low BP which resolved and amiodarone stopped. He then converted back to SR less than 2 hours later , 07/21/24, at 18:54 and remains in SB in the 50s. Physical Exam Physical Exam: General: no acute distress and stated age, Thin Eyes: conjunctiva are pink and non-injected, sclera clear Neck: normal jugular venous pulse, no hepatojugular reflux, Right side tunneled catheter noted without any erythema or hematoma at site Chest: normal shape and normal respiratory effort Lungs: clear to auscultation and percussion Cardiac Exam: - Irregular rhythm, no murmurs Abdomen: abdomen soft, non-tender, no abnormal masses and no hepatosplenomegaly Musculoskeletal: no gait disturbance, no weakness Extremities: no edema and no cyanosis Neuro:awake, conversant, follows commands, no focal motor deficits Results & Data Vital Signs (Past 12 Hours) Vital Signs Temp Pulse Pulse Resp BP Pulse Ox O2 Del Method 07/22/24 11:22 36.8 C 58 L 18 129/73 93 Room Air 07/22/24 07:28 36.9 C 58 L 18 150/69 H 94 Nasal Cannula 07/22/24 04:05 36.8 C 58 L 16 133/64 93 Nasal Cannula O2 Flow Rate 07/22/24 11:22 07/22/24 07:28 2 07/22/24 04:05 2
[2024-07-23 06:25] LABS: Hematocrit (blood only) 29.9 % (42.0-52.0); Hemoglobin 10.3 g/dl (14.0-18.0); Mean Corpuscular Hemoglobin 31.1 pg (25.0-34.0); Mean Corpuscular Hgb Conc 34.4 g/dL (32.0-36.0); Mean Corpuscular Volume 90.3 fL (80.0-100.0); Mean Platelet Volume 10.6 fL (9.4-12.4); Platelet Count 177 K/uL (130-400); RDW Coefficient of Variation 13.5 % (11.5-14.5); RDW Standard Deviation 45.4 fL (36.4-46.3); Red Blood Count 3.31 M/uL (4.70-6.10); White Blood Count 7.28 K/ul (4.8-10.8)
[2024-07-23 06:43] LABS: BUN Creatinine Ratio 6.9 (10-20); Calcium 8.2 mg/dl (8.6-10.3); Creatinine Clr Calc Pharmacy 6.5 ml/min; Magnesium 2.3 mg/dl (1.7-2.4); Potassium 4.5 mmol/L (3.5-5.1)
--- NOTE | 2024-07-23 09:15 | Hospitalist Progress Note ---
Date of Service July 23, 2024 Assessment & Plan (1) Acute renal failure superimposed on stage 4 chronic kidney disease: (2) Acute on chronic heart failure with preserved ejection fraction: (3) Acute hypoxic respiratory failure: (4) Pneumonia: (5) Hypertension, uncontrolled: (6) BPH with urinary obstruction: (7) Decreased appetite: (8) Vascular disease, peripheral: (9) CAD (coronary artery disease): (10) Cholelithiasis: (11) Hyperkalemia: (12) Hiatal hernia: (13) Esophageal dysmotility: Plan Per previous hospitalist w/addendum Mr. Quinn is an 89-year-old man with history of CAD status post multiple stents and CABG, PAD status post bilateral common iliac stents, TIA, bilateral carotid stenosis, CKD 4, status post left kidney cryoablation, COPD, GERD and other medical problems who presented on 07/09 due to chest pain and treated for acute on chronic heart failure with preserved EF and possible pneumonia. Imaging revealed gallstones and iso poor appetite, gen surgery consulted. Ultimately HIDA scan negative for acute cholecystitis and patient poor elective surgical candidate at this time. Patient's course marked by progressive decline in renal function with hyperkalemia and oliguria as well as worsening hypoxia iso volume overload. Family discussion regarding HD 07/14 ultimately led to patient decision for HD. Patient with line placed evening of 07/14 and first HD session 07/15 morning. Patient tolerated. Also looming concern for underlying depression based upon multiple stressors, long history of reluctance to eat, and cognitive impairment rather newer in onset per family (outside of acute illness). Patient started on mirtazapine this admission. Now s/p tunneled line placement w/ vasc. surgery. #ROSALBA on CKD IV on HD 07/15 #Atrophic left kideny #multiple renal cysts baseline has ranged 2.2-2.9 Nephrology following -initially attempted fluid resuscitation, however, worsening volume overload -Lokelma started and continued iso hyperkalemia -Avoid nephrotoxins -Low K diet TDC in [facility] placed 07/14, first HD session 07/15 Continue HD as coordinated by nephrology S/p tunneled hemodialysis catheter placement on 07/21/2023 w/ vasc. surg. Dr. Dyer Case management aware family requesting at the time of discharge to refer patient to go to [facility] and go to the [place] dialysis unit. PT/OT recommends rehab #Acute hypoxic resp failure iso volume overload #Bilateral pleural effusions #Possible Pneumonia On 6 L NC -> 4L ->2L , no reported distress, declined bipap completed abx HD for volume will likely require 2 step prior to dispo cont. to monitor O 2requirement #Elevated troponin iso renal failure no chest pain reported, troponin flat at this time monitor on tele iso hyperkalemia #Acute on Chronic CHF, resolved #obstructive CAD s/p CABG 1996, CHARMAINE 2018 #Hypertensive urgency ECHO 55-60% 07/10 High sensitive troponin of 52 on admission with no delta difference BNP elevated to 1400 Diuretics held 2/2 progressive renal failure continue on coreg, amlodipine and hydralazine TID continue imdur continue asa and plavix continue statin Afib RVR - new onset - cardiology aware and stared amiodarone - BP initially dropped after amio to SBP 60s, however pt quickly recovered - currently back to sinus, cont. coreg #Cholelithiasis General surgery consulted, HIDA scan negative poor elective surgical candidate Encourage po #Poor appetite #c/f depression PHQ 13 -started on mirtazapine this admission GERDcontinue on home PPI COPDcontinue home inhalers Code status: DNR/DNI DVT ppx: Hep sq Admission and Anticipated Discharge Date Admission Date: July 09, 2024 Subjective Pt seen in follow up Started HD several days ago Had tunneled line placed w/ vasc. surg., then had HD. Developed Afib RVR -> now back to sinus rhythm. Cardiology following. Denies any chest pain, or shortness of breath, no abd. pain Family discussed code status and this was then changed to DNR/DNI. Currently sitting in the chair, resting, in NAD. Did not have nausea this AM, but + nausea around lunchtime PT/OT recommends rehab Review of Systems Review of Systems: All systems reviewed & are unremarkable except as noted in Subjective Physical Exam Physical Exam: Constitutional: WD/WN elderly M in NAD HEENT: Mucous membranes moist. Lungs: Decreased breath sounds with a few crackles CV: regular Abdomen: Soft, nontender, nondistended Extremities: No significant edema Neuro: awake, alert, No focal deficits, generalized weakness Psych: Cooperative Results & Data Results & Data Vital Signs (Past 12 Hours) Vital Signs Temp Pulse Pulse Resp BP Pulse Ox O2 Del Method 07/23/24 07:48 Room Air 07/23/24 07:38 36.7 C 55 L 18 153/65 H 90 Room Air 07/23/24 03:05 36.7 C 60 14 157/67 H 90 Room Air 07/22/24 23:20 36.6 C 60 14 146/61 H 90 Room Air 07/22/24 21:52 62 Laboratory Results 07/23/24 Range/Units 05:49 WBC 7.28 (4.8-10.8) K/ul RBC 3.31 L (4.70-6.10) M/uL Hgb 10.3 L (14.0-18.0) g/dl Hct 29.9 L (42.0-52.0) % MCV 90.3 (80.0-100.0) fL MCH 31.1 (25.0-34.0) pg MCHC 34.4 (32.0-36.0) g/dL RDW Std Deviation 45.4 (36.4-46.3) fL RDW Coeff of Jessica 13.5 (11.5-14.5) % Plt Count 177 (130-400) K/uL MPV 10.6 (9.4-12.4) fL Sodium 138 (136-145) mmol/L Potassium 4.5 (3.5-5.1) mmol/L Chloride 102 (98-107) mmol/L Carbon Dioxide 26 (21-32) mmol/L Anion Gap 10 (3-11) BUN 48 H (6-23) mg/dl Creatinine 6.94 H* D (0.6-1.4) mg/dl Est Cr Clr Drug Dosing 6.5 ml/min eGFR 7.08 BUN/Creatinine Ratio 6.9 L (10-20) Glucose 100 H (70-99(Fasting)) mg/dl Calcium 8.2 L (8.6-10.3) mg/dl Phosphorus 6.0 H (2.5-4.9) mg/dl Magnesium 2.3 (1.7-2.4) mg/dl Medications Administered Current Inpatient Medications Acetaminophen (Acetaminophen 325 Mg Tab) 650 mg PO QID PRN PRN Reason: Pain Stop: 08/08/24 14:48 Last Admin: 07/19/24 08:45 Dose: 650 mg Albuterol (Albuterol Hfa 8 Gm Inhaler) 1 puffs INH Q4H PRN PRN Reason: sob Stop: 08/08/24 14:59 Last Admin: 07/13/24 21:33 Dose: 1 puffs Amlodipine Besylate (Amlodipine Besylate 5 Mg Tab) 5 mg PO BID [facility] Stop: 08/08/24 20:59 Last Admin: 07/23/24 08:23 Dose: 5 mg Aspirin (Aspirin 81 Mg Ectab) 81 mg PO BID [facility] Stop: 08/09/24 08:59 Last Admin: 07/23/24 08:23 Dose: 81 mg Carvedilol (Carvedilol 25 Mg Tab) 25 mg PO BIDM [facility] Stop: 08/10/24 20:59 Last Admin: 07/23/24 08:23 Dose: Not Given Clopidogrel Bisulfate (Clopidogrel Bisulfate 75 Mg Tab) 75 mg PO QAM [facility] Stop: 08/09/24 08:59 Last Admin: 07/23/24 08:22 Dose: 75 mg Finasteride (Finasteride 5 Mg Tab) 5 mg PO QAM [facility] Stop: 08/09/24 08:59 Last Admin: 07/23/24 08:24 Dose: 5 mg Fluticasone/Vilanterol (Fluticasone/Vilanterol 200/25mcg 14 Puffs/Inhaler) 1 puffs INH DAILY [facility] Stop: 08/09/24 08:59 Last Admin: 07/23/24 08:24 Dose: 1 puffs Heparin Sodium (Porcine) (Heparin 100 Unit/Ml 5ml Flush) 5 ml FLUSH PRN PRN PRN Reason: Flush Stop: 08/14/24 00:14 Heparin Sodium (Porcine) (Heparin Sod 5,000 Unit/0.5 Ml Vial) 5,000 units SQ Q8 [facility] Stop: 08/19/24 13:59 Last Admin: 07/23/24 06:15 Dose: Not Given Isosorbide Dinitrate (Isosorbide Dinitrate 5 Mg Tab) 10 mg PO TID@0700,1200,1700 [facility] Stop: 08/11/24 16:59 Last Admin: 07/23/24 07:57 Dose: 10 mg Levalbuterol HCl (Levalbuterol Hcl 0.63 Mg/3 Ml Neb) 0.63 mg NEB Q4H PRN; Protocol PRN Reason: Shortness Of Breath Or Wheezing Stop: 08/13/24 01:38 Last Admin: 07/16/24 03:01 Dose: 0.63 mg Menthol (Cough Drop (Sugar Free) Navya 24 Navya/1 Box) 1 navya BUCCAL PRN PRN PRN Reason: Cough Stop: 08/14/24 02:14 Mirtazapine (Mirtazapine Tab 15 Mg Tab) 30 mg PO HS [facility] Stop: 08/15/24 20:59 Last Admin: 07/22/24 21:01 Dose: 30 mg Nitroglycerin (Nitroglycerin Sl 0.4 Mg/Tab Tab) 0.4 mg SL UD PRN PRN Reason: Chest Pain Stop: 08/08/24 14:48 Last Admin: 07/13/24 22:43 Dose: 0.4 mg Pantoprazole Sodium (Pantoprazole 40 Mg Tab) 40 mg PO QAM [facility] Stop: 08/09/24 08:59 Last Admin: 07/23/24 08:23 Dose: 40 mg Polyethylene Glycol (Polyethylene (Miralax) 17 Gm Pack) 17 gm PO DAILY [facility] Stop: 08/11/24 17:14 Last Admin: 07/23/24 08:25 Dose: Not Given Rosuvastatin Calcium (Rosuvastatin Calcium 20 Mg Tab) 20 mg PO QPM [facility] Stop: 08/08/24 20:59 Last Admin: 07/22/24 21:01 Dose: 20 mg Sennosides (Senna 8.6 Mg Tab) 8.6 mg PO BID [facility] Stop: 08/11/24 20:59 Last Admin: 07/23/24 08:28 Dose: 8.6 mg Tamsulosin HCl (Tamsulosin Hcl 0.4 Mg Cap) 0.4 mg PO QPM [facility] Stop: 08/08/24 20:59 Last Admin: 07/22/24 21:01 Dose: 0.4 mg Tramadol HCl (Tramadol Hcl 50 Mg Tablet) 25 mg PO Q4H PRN PRN Reason: Pain Stop: 08/11/24 14:33 Last Admin: 07/23/24 03:09 Dose: 25 mg
--- NOTE | 2024-07-23 15:29 | Communication Note ---
Date of Service: July 23, 2024 Patient remains in sinus rhythm without recurrence of atrial fibrillation. Continue carvedilol. Continue dual antiplatelet therapy without anticoagulation
[2024-07-23] MEDS: ONDANSETRON 2 MG OD TAB PO PRN (17:30)
[2024-07-24 07:34] LABS: Hematocrit (blood only) 28.5 % (42.0-52.0); Hemoglobin 9.6 g/dl (14.0-18.0); Mean Corpuscular Hemoglobin 30.4 pg (25.0-34.0); Mean Corpuscular Hgb Conc 33.7 g/dL (32.0-36.0); Mean Corpuscular Volume 90.2 fL (80.0-100.0); Mean Platelet Volume 10.6 fL (9.4-12.4); Platelet Count 175 K/uL (130-400); RDW Coefficient of Variation 13.6 % (11.5-14.5); Red Blood Count 3.16 M/uL (4.70-6.10); White Blood Count 6.31 K/ul (4.8-10.8)
[2024-07-24 07:49] LABS: BUN Creatinine Ratio 7.4 (10-20); Calcium 8.1 mg/dl (8.6-10.3); Creatinine Clr Calc Pharmacy 5.4 ml/min; Magnesium 2.3 mg/dl (1.7-2.4); Phosphorus 6.7 mg/dl (2.5-4.9); Potassium 4.5 mmol/L (3.5-5.1)
--- NOTE | 2024-07-24 08:44 | Electrocardiogram Report ---
Test Reason : Blood Pressure : */* mmHG Vent. Rate : 111 BPM Atrial Rate : 141 BPM P-R Int : * ms QRS Dur : 100 ms QT Int : 352 ms P-R-T Axes : * -11 1 degrees QTcB Int : 478 ms Atrial fibrillation with rapid ventricular response Moderate voltage criteria for LVH, may be normal variant Nonspecific ST abnormality Abnormal ECG When compared with ECG of 18-Jul-2024 18:04, Atrial fibrillation has replaced Sinus rhythm Vent. rate has increased by 49 bpm Confirmed by Wiliam Pedroza ([id number]) on 07/24/2024 8:43:46 AM Referred By: REFERRED SELF Confirmed By: Wiliam Pedroza
--- NOTE | 2024-07-24 10:58 | Dialysis Progress Note ---
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 oligoanuric stage 3 oliguric ROSALBA on CKD4 with baseline creatinine of around around mid 2's since April 2022, though renal function is labile and ranges 2.2-2.9 this timeframe. he was referred to nephro for February 2024 appt to est care but cancelled appt. Seen by cardiology Jun 2024 where he presented w/ SBP 210s, averaging 180s on home monitoring and not taking medications as rx'd. Renal u/s 07/11 w/o obstruction and w/ atrophic L kidney, and w/ multiple BL renal cysts; did have urinary retention on admission bladder scan and on 07/13 garcia had to be reinserted d/t same. this is predominantly CKD from hypertension as well as vascular disease. -cont to avoid nephrotoxic agents including NSAIDs nephrotoxic antibiotics con trast agents. -daily renal panel and CBC -garcia replaced > cont strict I/O >> he is oliguric; unlikely to respond to more lasix; f/u urology recs -cont low K diet needs [facility] treatment chair; Case Mgt working on it he's 89 but a good 89 at baseline; lives independently; his son is a retired bottom cager w/ [employer]; daughter is nurse residential real estate agent w/ [employer] Clinical status discussed w/ Dr No. Patient is stable for discharge from renal standpoint. (2) CHF (congestive heart failure): Plan: pt does have underlying history of combined systolic/diastolic heart failure. no home 02 and now on RA PRN lasix and inhalers (3) Poorly-controlled hypertension: Plan: his blood pressure is now generally better controlled once his home blood pressure regimen was restarted. Given that he's lived in 180s systolic for months, target SBP 140-150s for now >> at goal and at times on lower side stopped hydralazine continue other BP meds for now Subjective pt seen during dialysis. NO issues . BP is good and CVC fine. No SOB. NO edema. Review of Systems Review of Systems: All systems reviewed & are unremarkable except as noted in Subjective Physical Exam Constitutional: well developed, + thin, + altered mental status (not overly confused but does repeat himself), + frail appearing and cooperative; no acute distress Eyes: EOM intact bilaterally ENMT: Mouth: + dry oral mucous membranes Neck: no nuchal rigidity Respiratory: able to speak in complete sentences; no labored breathing, no cough, expiratory phase not prolonged and no paradoxical thoraco-abdominal movemnt Auscultation: + diminished lung sounds Cardiovascular: RRR, no murmur, no edema Gastrointestinal (Abdomen): Inspection/Auscultation: normal bowel sounds Percussion/Palpation: abdomen soft Musculoskeletal: Extremities: strength 5/5 throughout Skin: no rashes, warm and dry Psychiatric: Orientation: alert and oriented x 3 (no obvious confusion in interview) Results & Data Vital Signs (Past 12 Hours) Vital Signs Temp Pulse Pulse Resp BP BP BP 07/24/24 10:00 56 L 150/72 H 07/24/24 09:30 56 L 150/72 H 07/24/24 09:06 56 L 145/69 H 07/24/24 08:57 36.7 C 58 L 07/24/24 07:32 36.7 C 55 L 17 114/48 L 07/24/24 03:58 36.6 C 62 18 155/68 H 07/23/24 23:26 64 07/23/24 23:20 36.7 C 59 L 14 139/56 L Pulse Ox O2 Del Method 07/24/24 10:00 07/24/24 09:30 07/24/24 09:06 07/24/24 08:57 07/24/24 07:32 94 Room Air 07/24/24 03:58 07/23/24 23:26 07/23/24 23:20 90 Room Air
--- NOTE | 2024-07-24 17:25 | Hospitalist Progress Note ---
Date of Service July 24, 2024 Assessment & Plan (1) Acute renal failure superimposed on stage 4 chronic kidney disease: (2) Acute on chronic heart failure with preserved ejection fraction: (3) Acute hypoxic respiratory failure: (4) Pneumonia: (5) Hypertension, uncontrolled: (6) BPH with urinary obstruction: (7) Decreased appetite: (8) Vascular disease, peripheral: (9) CAD (coronary artery disease): (10) Cholelithiasis: (11) Hyperkalemia: (12) Hiatal hernia: (13) Esophageal dysmotility: Plan Per previous hospitalist w/addendum Mr. Quinn is an 89-year-old man with history of CAD status post multiple stents and CABG, PAD status post bilateral common iliac stents, TIA, bilateral carotid stenosis, CKD 4, status post left kidney cryoablation, COPD, GERD and other medical problems who presented on 07/09 due to chest pain and treated for acute on chronic heart failure with preserved EF and possible pneumonia. Imaging revealed gallstones and iso poor appetite, gen surgery consulted. Ultimately HIDA scan negative for acute cholecystitis and patient poor elective surgical candidate at this time. Patient's course marked by progressive decline in renal function with hyperkalemia and oliguria as well as worsening hypoxia iso volume overload. Family discussion regarding HD 07/14 ultimately led to patient decision for HD. Patient with line placed evening of 07/14 and first HD session 07/15 morning. Patient tolerated. Also looming concern for underlying depression based upon multiple stressors, long history of reluctance to eat, and cognitive impairment rather newer in onset per family (outside of acute illness). Patient started on mirtazapine this admission. Now s/p tunneled line placement w/ vasc. surgery. #ROSALBA on CKD IV on HD 07/15 #Atrophic left kideny #multiple renal cysts baseline has ranged 2.2-2.9 Nephrology following -initially attempted fluid resuscitation, however, worsening volume overload -Lokelma started and continued iso hyperkalemia -Avoid nephrotoxins -Low K diet TDC in [facility] placed 07/14, first HD session 07/15 Continue HD as coordinated by nephrology S/p tunneled hemodialysis catheter placement on 07/21/2023 w/ vasc. surg. Dr. Dyer Case management aware family requesting at the time of discharge to refer patient to go to [facility] and go to the [facility] dialysis unit. PT/OT recommends rehab #Acute hypoxic resp failure iso volume overload #Bilateral pleural effusions #Possible Pneumonia On 6 L NC -> 4L ->2L , no reported distress, declined bipap completed abx HD for volume will likely require 2 step prior to dispo cont. to monitor O 2requirement #Elevated troponin iso renal failure no chest pain reported, troponin flat at this time monitor on tele iso hyperkalemia #Acute on Chronic CHF, resolved #obstructive CAD s/p CABG 1996, CHARMAINE 2018 #Hypertensive urgency ECHO 55-60% 07/10 High sensitive troponin of 52 on admission with no delta difference BNP elevated to 1400 Diuretics held 2/2 progressive renal failure continue on coreg, amlodipine and hydralazine TID continue imdur continue asa and plavix continue statin Afib RVR - new onset, seen by cardiology - currently back to sinus, cont. coreg #Cholelithiasis General surgery consulted, HIDA scan negative poor elective surgical candidate Encourage po #Poor appetite #c/f depression PHQ 13 -started on mirtazapine this admission GERDcontinue on home PPI COPDcontinue home inhalers Code status: DNR/DNI DVT ppx: Hep sq Admission and Anticipated Discharge Date Admission Date: July 09, 2024 Subjective Pt seen in follow up Started HD several days ago Had tunneled line placed w/ vasc. surg., then had HD. Developed Afib RVR -> now back to sinus rhythm. Cardiology consulted Denies any chest pain, or shortness of breath, no abd. pain Family discussed code status and this was then changed to DNR/DNI. Seen on HD today, feeling well. Inquiring about DC. CM involved in DC planning. Review of Systems Review of Systems: All systems reviewed & are unremarkable except as noted in Subjective Physical Exam Physical Exam: Constitutional: WD/WN elderly M in NAD HEENT: Mucous membranes moist. Lungs: Decreased breath sounds with a few crackles CV: regular Abdomen: Soft, nontender, nondistended Extremities: No significant edema Neuro: awake, alert, No focal deficits, generalized weakness Psych: Cooperative Results & Data Results & Data Vital Signs (Past 12 Hours) Vital Signs Temp Pulse Pulse Resp BP BP BP 07/24/24 16:19 60 07/24/24 15:56 36.7 C 50 L 17 129/62 07/24/24 12:47 36.5 C 59 L 161/76 H 07/24/24 12:31 07/24/24 12:30 63 154/84 H 07/24/24 12:00 64 150/78 H 07/24/24 11:30 56 L 142/71 H 07/24/24 11:00 56 L 158/80 H 07/24/24 10:30 55 L 155/74 H 07/24/24 10:00 56 L 150/72 H 07/24/24 09:30 56 L 150/72 H 07/24/24 09:06 56 L 145/69 H 07/24/24 08:57 36.7 C 58 L 07/24/24 08:00 63 07/24/24 07:32 36.7 C 55 L 17 114/48 L Pulse Ox O2 Del Method O2 Flow Rate 07/24/24 16:19 07/24/24 15:56 92 Room Air 07/24/24 12:47 07/24/24 12:31 Nasal Cannula 2 07/24/24 12:30 07/24/24 12:00 07/24/24 11:30 07/24/24 11:00 07/24/24 10:30 07/24/24 10:00 07/24/24 09:30 07/24/24 09:06 07/24/24 08:57 07/24/24 08:00 07/24/24 07:32 94 Room Air Laboratory Results 07/24/24 Range/Units 06:55 WBC 6.31 (4.8-10.8) K/ul RBC 3.16 L (4.70-6.10) M/uL Hgb 9.6 L (14.0-18.0) g/dl Hct 28.5 L (42.0-52.0) % MCV 90.2 (80.0-100.0) fL MCH 30.4 (25.0-34.0) pg MCHC 33.7 (32.0-36.0) g/dL RDW Std Deviation 45.0 (36.4-46.3) fL RDW Coeff of Jessica 13.6 (11.5-14.5) % Plt Count 175 (130-400) K/uL MPV 10.6 (9.4-12.4) fL Sodium 136 (136-145) mmol/L Potassium 4.5 (3.5-5.1) mmol/L Chloride 100 (98-107) mmol/L Carbon Dioxide 24 (21-32) mmol/L Anion Gap 12 H (3-11) BUN 60 H (6-23) mg/dl Creatinine 8.08 H* D (0.6-1.4) mg/dl Est Cr Clr Drug Dosing 5.4 ml/min eGFR 5.90 BUN/Creatinine Ratio 7.4 L (10-20) Glucose 95 (70-99(Fasting)) mg/dl Calcium 8.1 L (8.6-10.3) mg/dl Phosphorus 6.7 H (2.5-4.9) mg/dl Magnesium 2.3 (1.7-2.4) mg/dl Medications Administered Current Inpatient Medications Acetaminophen (Acetaminophen 325 Mg Tab) 650 mg PO QID PRN PRN Reason: Pain Stop: 08/08/24 14:48 Last Admin: 07/19/24 08:45 Dose: 650 mg Albuterol (Albuterol Hfa 8 Gm Inhaler) 1 puffs INH Q4H PRN PRN Reason: sob Stop: 08/08/24 14:59 Last Admin: 07/13/24 21:33 Dose: 1 puffs Amlodipine Besylate (Amlodipine Besylate 5 Mg Tab) 5 mg PO BID COUNT INCLUDES [facility] Stop: 08/08/24 20:59 Last Admin: 07/24/24 13:00 Dose: 5 mg Aspirin (Aspirin 81 Mg Ectab) 81 mg PO BID COUNT INCLUDES [facility] Stop: 08/09/24 08:59 Last Admin: 07/24/24 13:00 Dose: 81 mg Carvedilol (Carvedilol 25 Mg Tab) 25 mg PO BIDM COUNT INCLUDES [facility] Stop: 08/10/24 20:59 Last Admin: 07/24/24 16:17 Dose: 25 mg Clopidogrel Bisulfate (Clopidogrel Bisulfate 75 Mg Tab) 75 mg PO [facility] Stop: 08/09/24 08:59 Last Admin: 07/24/24 13:00 Dose: 75 mg Finasteride ([facility]aster[facility] 5 Mg Tab) [facility] Stop: 08/09/24 08:59 Last Admin: 07/24/24 13:01 Dose: 5 mg Fluticasone/Vilanterol (Fluticasone/Vilanterol 200/25mcg 14 Puffs/Inhaler) 1 p uffs INH DAILY COUNT INCLUDES [facility] Stop: 08/09/24 08:59 Last Admin: 07/24/24 13:01 Dose: 1 puffs Heparin Sodium (Porcine) (Heparin 100 Unit/Ml 5ml Flush) 5 ml FLUSH PRN PRN PRN Reason: Flush Stop: 08/14/24 00:14 Heparin Sodium (Porcine) (Heparin Sod 5,000 Unit/0.5 Ml Vial) 5,000 units SQ Q8 COUNT [facility]CLUDES [facility] Stop: 08/19/24 13:59 Last Admin: 07/24/24 13:02 Dose: Not Given Isosorbide Dinitrate (Isosorbide Dinitrate 5 Mg Tab) 10 mg PO TID@0700,1200,1700 COUNT [facility]CLUDES [facility] Stop: 08/11/24 16:59 Last Admin: 07/24/24 16:18 Dose: 10 mg Levalbuterol HCl (Levalbuterol Hcl 0.63 Mg/3 Ml Neb) 0.63 mg NEB Q4H PRN; Protocol PRN Reason: Shortness Of Breath Or Wheezing Stop: 08/13/24 01:38 Last Admin: 07/16/24 03:01 Dose: 0.63 mg Menthol (Cough Drop (Sugar Free) Navya 24 Navya/1 Box) 1 navya BUCCAL PRN PRN PRN Reason: Cough Stop: 08/14/24 02:14 Mirtazapine (Mirtazapine Tab 15 Mg Tab) 30 mg PO HS COUNT INCLUDES [facility] Stop: 08/15/24 20:59 Last Admin: 07/23/24 20:54 Dose: 30 mg Nitroglycerin (Nitroglycerin Sl 0.4 Mg/Tab Tab) 0.4 mg SL UD PRN PRN Reason: Chest Pain Stop: 08/08/24 14:48 Last Admin: 07/13/24 22:43 Dose: 0.4 mg Ondansetron HCl (Ondansetron 2 Mg Od Tab) 2 mg PO Q8H PRN PRN Reason: Nausea Stop: 08/22/24 17:06 Last Admin: 07/23/24 17:30 Dose: 2 mg Pantoprazole Sodium (Pantoprazole 40 Mg Tab) 40 mg PO QAM COUNT INCLUDES [facility] Stop: 08/09/24 08:59 Last Admin: 07/24/24 13:00 Dose: 40 mg Polyethylene Glycol (Polyethylene (Miralax) 17 Gm Pack) 17 gm PO DAILY [facility] Stop: 08/11/24 17:14 Last Admin: 07/24/24 13:03 Dose: Not Given Rosuvastatin Calcium (Rosuvastatin Calcium 20 Mg Tab) 20 mg PO QPM [facility] Stop: 08/08/24 20:59 Last Admin: 07/23/24 20:54 Dose: 20 mg Sennosides (Senna 8.6 Mg Tab) 8.6 mg PO BID [facility] Stop: 08/11/24 20:59 Last Admin: 07/24/24 13:05 Dose: 8.6 mg Tamsulosin HCl (Tamsulosin Hcl 0.4 Mg Cap) 0.4 mg PO QPM COUNT [facility]CLUDES [facility] Stop: 08/08/24 20:59 Last Admin: 07/23/24 20:55 Dose: 0.4 mg Tramadol HCl (Tramadol Hcl 50 Mg Tablet) 25 mg PO Q4H PRN PRN Reason: Pain Stop: 08/11/24 14:33 Last Admin: 07/23/24 03:09 Dose: 25 mg
--- NOTE | 2024-07-25 17:38 | Hospitalist Progress Note ---
Date of Service July 25, 2024 Assessment & Plan (1) Acute renal failure superimposed on stage 4 chronic kidney disease: (2) Acute on chronic heart failure with preserved ejection fraction: (3) Acute hypoxic respiratory failure: (4) Pneumonia: (5) Hypertension, uncontrolled: (6) BPH with urinary obstruction: (7) Decreased appetite: (8) Vascular disease, peripheral: (9) CAD (coronary artery disease): (10) Cholelithiasis: (11) Hyperkalemia: (12) Hiatal hernia: (13) Esophageal dysmotility: Plan Per previous hospitalist w/addendum Mr. Quinn is an 89-year-old man with history of CAD status post multiple stents and CABG, PAD status post bilateral common iliac stents, TIA, bilateral carotid stenosis, CKD 4, status post left kidney cryoablation, COPD, GERD and other medical problems who presented on 07/09 due to chest pain and treated for acute on chronic heart failure with preserved EF and possible pneumonia. Imaging revealed gallstones and iso poor appetite, gen surgery consulted. Ultimately HIDA scan negative for acute cholecystitis and patient poor elective surgical candidate at this time. Patient's course marked by progressive decline in renal function with hyperkalemia and oliguria as well as worsening hypoxia iso volume overload. Family discussion regarding HD 07/14 ultimately led to patient decision for HD. Patient with line placed evening of 07/14 and first HD session 07/15 morning. Patient tolerated. Also looming concern for underlying depression based upon multiple stressors, long history of reluctance to eat, and cognitive impairment rather newer in onset per family (outside of acute illness). Patient started on mirtazapine this admission. Now s/p tunneled line placement w/ vasc. surgery. #ROSALBA on CKD IV on HD 07/15 #Atrophic left kideny #multiple renal cysts baseline has ranged 2.2-2.9 Nephrology following -initially attempted fluid resuscitation, however, worsening volume overload -Lokelma started and continued iso hyperkalemia -Avoid nephrotoxins -Low K diet TDC in [facility] placed 07/14, first HD session 07/15 Continue HD as coordinated by nephrology S/p tunneled hemodialysis catheter placement on 07/21/2023 w/ vasc. surg. Dr. Dyer Case management aware family requesting at the time of discharge to refer patient to go to [facility] and go to the [place] dialysis unit. CM involved in DC planning. #Acute hypoxic resp failure iso volume overload #Bilateral pleural effusions #Possible Pneumonia On 6 L NC -> 4L ->2L , no reported distress, declined bipap completed abx HD for volume will likely require 2 step prior to dispo cont. to monitor O 2requirement #Elevated troponin iso renal failure no chest pain reported, troponin flat at this time monitor on tele iso hyperkalemia #Acute on Chronic CHF, resolved #obstructive CAD s/p CABG 1996, CHARMAINE 2018 #Hypertensive urgency ECHO 55-60% 07/10 High sensitive troponin of 52 on admission with no delta difference BNP elevated to 1400 Diuretics held 2/2 progressive renal failure continue on coreg, amlodipine and hydralazine TID continue imdur continue asa and plavix continue statin Afib RVR - new onset, seen by cardiology - currently back to sinus, cont. coreg #Cholelithiasis General surgery consulted, HIDA scan negative poor elective surgical candidate Encourage po #Poor appetite #c/f depression PHQ 13 -started on mirtazapine this admission GERDcontinue on home PPI COPDcontinue home inhalers Code status: DNR/DNI DVT ppx: Hep sq Admission and Anticipated Discharge Date Admission Date: July 09, 2024 Subjective Pt seen in follow up Started HD several days ago Had tunneled line placed w/ vasc. surg., then had HD. Developed Afib RVR -> now back to sinus rhythm. Cardiology consulted Denies any chest pain, or shortness of breath, no abd. pain Family discussed code status and this was then changed to DNR/DNI. Today sitting up in chair in NAD, doing well overall and inquiring about DC. Pt's son present at the bedside and updated. Discussed DC with CM. Review of Systems Review of Systems: All systems reviewed & are unremarkable except as noted in Subjective Physical Exam Physical Exam: Constitutional: WD/WN elderly M in NAD, pleasant HEENT: Mucous membranes moist. Lungs: Decreased breath sounds with a few crackles CV: regular Abdomen: Soft, nontender, nondistended Extremities: No significant edema Neuro: awake, alert, No focal deficits, generalized weakness Psych: Cooperative Results & Data Results & Data Vital Signs (Past 12 Hours) Vital Signs Temp Pulse Pulse Pulse Resp BP BP 07/25/24 17:06 61 07/25/24 15:28 36.7 C 59 L 17 130/74 07/25/24 11:07 36.4 C L 60 18 125/61 07/25/24 07:46 60 07/25/24 07:40 07/25/24 07:31 36.7 C 59 L 17 122/57 L Pulse Ox O2 Del Method O2 Flow Rate 07/25/24 17:06 07/25/24 15:28 92 Room Air 07/25/24 11:07 92 Room Air 07/25/24 07:46 07/25/24 07:40 Nasal Cannula 2 07/25/24 07:31 91 Nasal Cannula 2 Medications Administered Current Inpatient Medications Acetaminophen (Acetaminophen 325 Mg Tab) 650 mg PO QID PRN PRN Reason: Pain Stop: 08/08/24 14:48 Last Admin: 07/19/24 08:45 Dose: 650 mg Albuterol (Albuterol Hfa 8 Gm Inhaler) 1 puffs INH Q4H PRN PRN Reason: sob Stop: 08/08/24 14:59 Last Admin: 07/13/24 21:33 Dose: 1 puffs Amlodipine Besylate (Amlodipine Besylate 5 Mg Tab) 5 mg PO BID [facility] Stop: 08/08/24 20:59 Last Admin: 07/25/24 08:48 Dose: 5 mg Aspirin (Aspirin 81 Mg Ectab) 81 mg PO BID [facility] Stop: 08/09/24 08:59 Last Admin: 07/25/24 08:48 Dose: 81 mg Carvedilol (Carvedilol 25 Mg Tab) 25 mg PO BIDM [facility] Stop: 08/10/24 20:59 Last Admin: 07/25/24 17:06 Dose: 25 mg Clopidogrel Bisulfate (Clopidogrel Bisulfate 75 Mg Tab) 75 mg PO QAM [facility] Stop: 08/09/24 08:59 Last Admin: 07/25/24 08:48 Dose: 75 mg Finasteride (Finasteride 5 Mg Tab) 5 mg PO QAM [facility] Stop: 08/09/24 08:59 Last Admin: 07/25/24 08:47 Dose: 5 mg Fluticasone/Vilanterol (Fluticasone/Vilanterol 200/25mcg 14 Puffs/Inhaler) 1 puffs INH DAILY [facility] Stop: 08/09/24 08:59 Last Admin: 07/25/24 09:27 Dose: Not Given Heparin Sodium (Porcine) (Heparin 100 Unit/Ml 5ml Flush) 5 ml FLUSH PRN PRN PRN Reason: Flush Stop: 08/14/24 00:14 Heparin Sodium (Porcine) (Heparin Sod 5,000 Unit/0.5 Ml Vial) 5,000 units SQ Q8 [facility] Stop: 08/19/24 13:59 Last Admin: 07/25/24 14:06 Dose: 5,000 units Isosorbide Dinitrate (Isosorbide Dinitrate 5 Mg Tab) 10 mg PO TID@0700,1200,1700 [facility] Stop: 08/11/24 16:59 Last Admin: 07/25/24 17:06 Dose: 10 mg Levalbuterol HCl (Levalbuterol Hcl 0.63 Mg/3 Ml Neb) 0.63 mg NEB Q4H PRN; Protocol PRN Reason: Shortness Of Breath Or Wheezing Stop: 08/13/24 01:38 Last Admin: 07/16/24 03:01 Dose: 0.63 mg Menthol (Cough Drop (Sugar Free) Navya 24 Navya/1 Box) 1 navya BUCCAL PRN PRN PRN Reason: Cough Stop: 08/14/24 02:14 Mirtazapine (Mirtazapine Tab 15 Mg Tab) 30 mg PO HS [facility] Stop: 08/15/24 20:59 Last Admin: 07/24/24 20:22 Dose: 30 mg Nitroglycerin (Nitroglycerin Sl 0.4 Mg/Tab Tab) 0.4 mg SL UD PRN PRN Reason: Chest Pain Stop: 08/08/24 14:48 Last Admin: 07/13/24 22:43 Dose: 0.4 mg Ondansetron HCl (Ondansetron 2 Mg Od Tab) 2 mg PO Q8H PRN PRN Reason: Nausea Stop: 08/22/24 17:06 Last Admin: 07/24/24 20:24 Dose: 2 mg Pantoprazole Sodium (Pantoprazole 40 Mg Tab) 40 mg PO QAM [facility] Stop: 08/09/24 08:59 Last Admin: 07/25/24 08:47 Dose: 40 mg Polyethylene Glycol (Polyethylene (Miralax) 17 Gm Pack) 17 gm PO DAILY [facility] Stop: 08/11/24 17:14 Last Admin: 07/25/24 09:24 Dose: Not Given Rosuvastatin Calcium (Rosuvastatin Calcium 20 Mg Tab) 20 mg PO QPM [facility] Stop: 08/08/24 20:59 Last Admin: 07/24/24 20:22 Dose: 20 mg Sennosides (Senna 8.6 Mg Tab) 8.6 mg PO BID [facility] Stop: 08/11/24 20:59 Last Admin: 07/25/24 09:24 Dose: Not Given Tamsulosin HCl (Tamsulosin Hcl 0.4 Mg Cap) 0.4 mg PO QPM [facility] Stop: 08/08/24 20:59 Last Admin: 07/24/24 20:22 Dose: 0.4 mg Tramadol HCl (Tramadol Hcl 50 Mg Tablet) 25 mg PO Q4H PRN PRN Reason: Pain Stop: 08/11/24 14:33 Last Admin: 07/23/24 03:09 Dose: 25 mg
[2024-07-26 06:17] LABS: Hematocrit (blood only) 29.4 % (42.0-52.0); Mean Corpuscular Hemoglobin 31.3 pg (25.0-34.0); Mean Corpuscular Volume 91.9 fL (80.0-100.0); Mean Platelet Volume 10.1 fL (9.4-12.4); Platelet Count 152 K/uL (130-400); RDW Coefficient of Variation 13.4 % (11.5-14.5); RDW Standard Deviation 45.6 fL (36.4-46.3); White Blood Count 6.44 K/ul (4.8-10.8)
[2024-07-26 06:43] LABS: Calcium 8.3 mg/dl (8.6-10.3); Creatinine Clr Calc Pharmacy 6.3 ml/min; Magnesium 2.2 mg/dl (1.7-2.4); Phosphorus 5.7 mg/dl (2.5-4.9); Potassium 5.2 mmol/L (3.5-5.1)
--- NOTE | 2024-07-26 10:16 | Dialysis Progress Note ---
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 oligoanuric stage 3 oliguric ROSALBA on CKD4 with baseline creatinine of around around mid 2's since April 2022, though renal function is labile and ranges 2.2-2.9 this timeframe. he was referred to nephro for February 2024 appt to est care but cancelled appt. Seen by cardiology Jun 2024 where he presented w/ SBP 210s, averaging 180s on home monitoring and not taking medications as rx'd. Renal u/s 07/11 w/o obstruction and w/ atrophic L kidney, and w/ multiple BL renal cysts; did have urinary retention on admission bladder scan and on 07/13 garcia had to be reinserted d/t same. this is predominantly CKD from hypertension as well as vascular disease. -cont to avoid nephrotoxic agents including NSAIDs nephrotoxic antibiotics con trast agents. -daily renal panel and CBC -garcia replaced > cont strict I/O >> he is oliguric; unlikely to respond to more lasix; f/u urology recs needs [facility]; Case Mgt working on it he's 89 but a good 89 at baseline; lives independently; his son is a retired superintendent plant protection w/ [employer]; daughter is nurse electronic assembly w/ [employer] Patient is stable for discharge from renal standpoint. (2) CHF (congestive heart failure): Plan: pt does have underlying history of combined systolic/diastolic heart failure. no home 02 and now on RA PRN lasix and inhalers (3) Poorly-controlled hypertension: Plan: his blood pressure is now generally better controlled once his home blood pressure regimen was restarted. Given that he's lived in 180s systolic for months, target SBP 140-150s for now >> at goal and at times on lower side stopped hydralazine continue other BP meds for now Subjective pt seen during dialysis. NO issues . BP is good and CVC fine. No SOB. NO edema. Review of Systems Review of Systems: All systems reviewed & are unremarkable except as noted in Subjective Physical Exam Constitutional: well developed, + thin, + altered mental status (not overly confused but does repeat himself), + frail appearing and cooperative; no acute distress Eyes: EOM intact bilaterally ENMT: Mouth: + dry oral mucous membranes Neck: no nuchal rigidity Respiratory: able to speak in complete sentences; no labored breathing, no cough, expiratory phase not prolonged and no paradoxical thoraco-abdominal movemnt Auscultation: + diminished lung sounds Cardiovascular: RRR, no murmur, no edema Gastrointestinal (Abdomen): Inspection/Auscultation: normal bowel sounds Percussion/Palpation: abdomen soft Musculoskeletal: Extremities: strength 5/5 throughout Skin: no rashes, warm and dry Psychiatric: Orientation: alert and oriented x 3 (no obvious confusion in interview) Results & Data Vital Signs (Past 12 Hours) Vital Signs Temp Pulse Pulse Pulse Resp BP BP 07/26/24 07:20 36.7 C 57 L 17 143/57 H 07/26/24 07:09 07/26/24 07:09 61 07/26/24 03:30 36.8 C 58 L 16 156/71 H 07/26/24 00:00 60 07/25/24 23:42 36.9 C 65 16 162/71 H Pulse Ox O2 Del Method 07/26/24 07:20 91 Room Air 07/26/24 07:09 Room Air 07/26/24 07:09 07/26/24 03:30 91 Room Air 07/26/24 00:00 07/25/24 23:42 91 Room Air
--- NOTE | 2024-07-26 13:17 | Hospitalist Progress Note ---
Date of Service July 26, 2024 Assessment & Plan (1) Acute renal failure superimposed on stage 4 chronic kidney disease: (2) Acute on chronic heart failure with preserved ejection fraction: (3) Acute hypoxic respiratory failure: (4) Pneumonia: (5) Hypertension, uncontrolled: (6) BPH with urinary obstruction: (7) Decreased appetite: (8) Vascular disease, peripheral: (9) CAD (coronary artery disease): (10) Cholelithiasis: (11) Hyperkalemia: (12) Hiatal hernia: (13) Esophageal dysmotility: Plan Per previous hospitalist w/addendum Mr. Quinn is an 89-year-old man with history of CAD status post multiple stents and CABG, PAD status post bilateral common iliac stents, TIA, bilateral carotid stenosis, CKD 4, status post left kidney cryoablation, COPD, GERD and other medical problems who presented on 07/09 due to chest pain and treated for acute on chronic heart failure with preserved EF and possible pneumonia. Imaging revealed gallstones and iso poor appetite, gen surgery consulted. Ultimately HIDA scan negative for acute cholecystitis and patient poor elective surgical candidate at this time. Patient's course marked by progressive decline in renal function with hyperkalemia and oliguria as well as worsening hypoxia iso volume overload. Family discussion regarding HD 07/14 ultimately led to patient decision for HD. Patient with line placed evening of 07/14 and first HD session 07/15 morning. Patient tolerated. Also looming concern for underlying depression based upon multiple stressors, long history of reluctance to eat, and cognitive impairment rather newer in onset per family (outside of acute illness). Patient started on mirtazapine this admission. Now s/p tunneled line placement w/ vasc. surgery. ROSALBA on CKD IV on HD 07/15 Atrophic left kidney multiple renal cysts baseline has ranged 2.2-2.9 Nephrology following -initially attempted fluid resuscitation, however, worsening volume overload -Lokelma started and continued iso hyperkalemia -Avoid nephrotoxins -Low K diet TDC in [facility] placed 07/14, first HD session 07/15 Continue HD as coordinated by nephrology S/p tunneled hemodialysis catheter placement on 07/21/2023 w/ vasc. surg. Dr. Dyer Case management aware family requesting at the time of discharge to refer patient to go to [facility] and go to the [facility] unit. CM involved in DC planning. 07/26- anticpate d/c tomorrow. Trial void today. Acute hypoxic resp failure iso volume overload Bilateral pleural effusions Possible Pneumonia On 6 L NC -> 4L ->2L , no reported distress, declined bipap completed abx HD for volume will likely require 2 step prior to dispo cont. to monitor O 2requirement 07/26- stable at this time Elevated troponin in setting of renal failure no chest pain reported, troponin flat at this time monitor on tele iso hyperkalemia Acute on Chronic CHF, resolved obstructive CAD s/p CABG 1996, CHARMAINE 2018 Hypertensive urgency ECHO 55-60% 07/10 High sensitive troponin of 52 on admission with no delta difference BNP elevated to 1400 Diuretics held 2/2 progressive renal failure continue on coreg, amlodipine and hydralazine TID continue imdur continue asa and plavix continue statin Afib RVR - new onset, seen by cardiology - currently back to sinus, cont. coreg Cholelithiasis General surgery consulted, HIDA scan negative poor elective surgical candidate Encourage po Poor appetite depression PHQ 13 -started on mirtazapine this admission GERDcontinue on home PPI COPDcontinue home inhalers Code status: DNR/DNI DVT ppx: Hep sq Admission and Anticipated Discharge Date Admission Date: July 09, 2024 Subjective Pt was seen while at dialysis. Dneid acute concerns. Anxious for discharge Per CM, discharge tomorrow trial void to be done today Review of Systems Review of Systems: All systems reviewed & are unremarkable except as noted in Subjective Physical Exam Physical Exam: General: Alert, oriented. No acute distress Psych: Appropriate mood and affect HEENT: NC/AT CV: RRR Resp: no increased effort of breathing Abdomen:Soft, nontender Extremities: No edema in lower extremities bilaterally. Results & Data Results & Data Vital Signs (Past 12 Hours) Vital Signs Temp Pulse Pulse Pulse Resp BP BP 07/26/24 12:55 36.6 C 61 07/26/24 12:30 61 161/78 H 07/26/24 12:00 61 159/81 H 07/26/24 11:30 58 L 165/87 H 07/26/24 11:00 56 L 148/72 H 07/26/24 10:30 60 149/70 H 07/26/24 10:00 60 169/75 H 07/26/24 09:45 67 155/70 H 07/26/24 09:39 36.7 C 61 07/26/24 07:20 36.7 C 57 L 17 07/26/24 07:09 07/26/24 07:09 61 07/26/24 03:30 36.8 C 58 L 16 156/71 H BP Pulse Ox O2 Del Method 07/26/24 12:55 174/84 H 07/26/24 12:30 07/26/24 12:00 07/26/24 11:30 07/26/24 11:00 07/26/24 10:30 07/26/24 10:00 07/26/24 09:45 07/26/24 09:39 07/26/24 07:20 143/57 H 91 Room Air 07/26/24 07:09 Room Air 07/26/24 07:09 07/26/24 03:30 91 Room Air
[2024-07-27 03:52] VITALS: RESP 19
[2024-07-27 07:21] VITALS: BP 128/62; TEMP 98.2; O2SAT 92
[2024-07-27 07:38] LABS: Hematocrit (blood only) 30.2 % (42.0-52.0); Hemoglobin 10.1 g/dl (14.0-18.0); Mean Corpuscular Hemoglobin 31.1 pg (25.0-34.0); Mean Corpuscular Hgb Conc 33.4 g/dL (32.0-36.0); Mean Corpuscular Volume 92.9 fL (80.0-100.0); Mean Platelet Volume 10.3 fL (9.4-12.4); Platelet Count 176 K/uL (130-400); RDW Coefficient of Variation 13.2 % (11.5-14.5); RDW Standard Deviation 45.4 fL (36.4-46.3); Red Blood Count 3.25 M/uL (4.70-6.10); White Blood Count 5.84 K/ul (4.8-10.8)
[2024-07-27 08:05] LABS: Calcium 8.5 mg/dl (8.6-10.3); Creatinine Clr Calc Pharmacy 8.5 ml/min; Magnesium 2.1 mg/dl (1.7-2.4); Potassium 4.4 mmol/L (3.5-5.1)
[2024-07-27 10:08] VITALS: PULSE 84
--- NOTE | 2024-07-27 10:35 | Discharge Summary ---
Discharge Summary Date of Service July 27, 2024 Principal Dx & Hospital Course #1 = Principal Diagnosis (1) Acute renal failure superimposed on stage 4 chronic kidney disease: (2) Acute on chronic heart failure with preserved ejection fraction: (3) Acute hypoxic respiratory failure: (4) Pneumonia: (5) Hypertension, uncontrolled: (6) BPH with urinary obstruction: (7) Decreased appetite: (8) Vascular disease, peripheral: (9) CAD (coronary artery disease): (10) Cholelithiasis: (11) Hyperkalemia: (12) Hiatal hernia: (13) Esophageal dysmotility: Plan Mr. Quinn is an 89-year-old man with history of CAD status post multiple stents and CABG, PAD status post bilateral common iliac stents, TIA, bilateral carotid stenosis, CKD 4, status post left kidney cryoablation, COPD, GERD and other medical problems who presented on 07/09 due to chest pain and was treated for acute on chronic heart failure with preserved EF and possible pneumonia. Imaging revealed gallstones and in setting of poor appetite, general surgery was consulted. Ultimately, a HIDA scan was negative for acute cholecystitis and patient was deemed a poor elective surgical candidate at this time. Patient's course marked by progressive decline in renal function with hyperkalemia and oliguria as well as worsening hypoxia in setting of volume overload. Family discussion regarding hemodialysis on 07/14 ultimately led to patient's decision for hemodialysis. Patient with Internal Jugular Hemodialysis catheter Placement placed evening of 07/14 and first hemodialysis session 07/15. Patient tolerated. Also looming concern for underlying depression based upon multiple stressors, long history of reluctance to eat, and cognitive impairment rather newer in onset per family (outside of acute illness). Patient started on mirtazapine this admission. ROSALBA on CKD Stage 4 on hemodialysis on 07/15 ESRD Oliguria Atrophic left kidney multiple renal cysts baseline Cr has ranged from 2.2-2.9 Nephrology consulted, recommended/stated the following: "...this is predominantly CKD from hypertension as well as vascular disease.... cont to avoid nephrotoxic agents including NSAIDs nephrotoxic antibiotics contrast agents. -daily renal panel and CBC -garcia replaced > cont strict I/O >> he is oliguric; unlikely to respond to more lasix; f/u urology recs needs Marquise Venegas treatment chair..." Internal Jugular Hemodialysis catheter Placement 07/14 by Electrical Logging Operator, first HD session 07/15 S/p tunneled hemodialysis catheter placement on 07/21/2023 w/ vasc. surgery Dr. Dyer Family requesting at the time of discharge to refer patient to go to [facility] and go to the [facility]. Has been coordinated with the assistance of CM. Pt with garcia removal on 07/26/23, with voiding noted afterwards though minimal. Please ensure close Nephrology and Dialysis follow up after discharge. Afib RVR new onset Pt was seen by cardiology Recommended/stated the following, per Dr Armenta on 07/23/24: "Patient remains in sinus rhythm without recurrence of atrial fibrillation. Continue carvedilol. Continue dual antiplatelet therapy without anticoagulation" Pt discharged on coreg 25mg BID, home metoprolol discontinued. Please ensure close cardiology follow-up after discharge. Acute hypoxic resp failure iso volume overload Bilateral pleural effusions Possible Pneumonia On 6 L NC -> 4L ->2L , no reported distress, declined bipap completed abx HD for volume cont. to monitor O 2requirement Pt remained stable on RA on discharge PCP followup Elevated troponin in setting of renal failure no chest pain reported, troponin flat at this time monitored on tele in setting of hyperkalemia which has since resolved. Acute on Chronic CHF obstructive CAD s/p CABG 1996, CHARMAINE 2018 Hypertensive urgency ECHO 55-60% 07/10 High sensitive troponin of 52 on admission BNP elevated to 1400 Diuretics held 2/2 progressive renal failure s/p dialysis sessions as noted above continue on coreg, amlodipine and hydralazine TID continue imdur continue asa and plavix continue statin Cholelithiasis General surgery consulted, HIDA scan negative poor elective surgical candidate Poor appetite depression PHQ 13 -started on mirtazapine this admission Discharged with the same GERDcontinue on home PPI COPDcontinue home inhalers Code status: DNR/DNI DVT ppx: Hep sq Notes For Next Care Provider Please ensure followup with Nephrology and dialysis sessions Please ensure close Cardiology followup Medication Changes From Visit Remeron 30mg qhs Per Cardiology: Coreg 25mg BID Discontinue home metoprolol Admission HPI Per Admitting Provider 89-year-old man with history of CAD status post multiple stents and CABG, PAD status post bilateral common iliac stents, TIA, bilateral carotid stenosis, CKD 4, status post left kidney cryoablation, COPD, GERD and other medical problems who presents with chest pain. History provided by daughter at bedside who is a nurse quality reviewer and patient. Patient developed chest pain last night and took some nitro which resolved chest pain intermittently. Chest pain is left-sided, referred to the back. Chest pain recurred this morning and patient took another 2 doses of nitro. Currently chest pain-free. Daughter reports that patient has been feeling ill for the past few days associated with nausea and vomiting (clear vomiting). Poor appetite and did not take his meds yesterday because of that. Patient has some shortness of breath especially with activity Daughter also noted leg swelling this AM which is new Denies any fever, congestion, sore throat Denies abd pain, diarrhea Denies dysuria, freq, urgency Former smoker Denies alcohol or illicit drug use Admission Exam Per Admitting Provider Constitutional: + well hydrated; no acute distress Elde rly man Eyes: PERRL, conjunctivae normal, anicteric sclerae ENMT: +hearing deficits. Hearing aid in situ Respiratory: normal respiratory effort; no respiratory distress Auscultation: + diminished lung sounds Cardiovascular: Rate/Rhythm: regular rate and regular rhythm S1 S2 Gastrointestinal (Abdomen): normal bowel sounds, soft, nontender, no hepatosplenomegaly Musculoskeletal: Bilateral pitting pedal edema Neurologic: PERRL, EOMI, accommodation nl, no face palsy, no dysarthria Psychiatric: A+Ox3, euthymic affect Discharge Exam General: Alert, oriented. No acute distress Psych: Appropriate mood and affect HEENT: NC/AT CV: RRR Resp: no increased effort of breathing Abdomen:Soft, nontender Extremities: No edema in lower extremities bilaterally. Updated Medication List Medication Instructions Recorded Confirmed Type acetaminophen 325 mg tablet 325 mg PO QID PRN Pain 09/16/20 07/09/24 History (Tylenol) albuterol 90 mcg/actuation aerosol 90 mcg inhalation UD PRN sob 09/16/20 07/09/24 History inhaler amlodipine 5 mg tablet (Norvasc) 5 mg PO BID 09/16/20 07/09/24 History aspirin 81 mg tablet,delayed 81 mg PO DAILY 09/16/20 07/09/24 History release clopidogrel 75 mg tablet (Plavix) 75 mg PO QAM 09/16/20 07/09/24 History finasteride 5 mg tablet 5 mg PO QAM 09/16/20 07/09/24 History fluticasone 250 mcg-salmeterol 50 1 inh inhalation BID 09/16/20 07/09/24 History mcg/dose blistr powdr for inhalation (Advair Diskus) lisinopril 5 mg tablet 5 mg PO QAM 09/16/20 07/09/24 History nitroglycerin 0.4 mg sublingual 0.4 mg sublingual UD PRN Chest Pain 09/16/20 07/09/24 History tablet (Nitrostat) pantoprazole 40 mg tablet,delayed 40 mg PO QAM 09/16/20 07/09/24 History release (Protonix) rosuvastatin 20 mg tablet (Crestor) 20 mg PO QPM 09/16/20 07/09/24 History tamsulosin 0.4 mg capsule 0.4 mg PO QPM 09/16/20 07/09/24 History hydralazine 10 mg tablet 10 mg PO TID 07/09/24 07/09/24 History isosorbide dinitrate 5 mg tablet 5 mg PO QID 07/09/24 07/09/24 History carvedilol 25 mg tablet 25 mg PO BIDM #60 tabs 07/27/24 Rx mirtazapine 30 mg tablet 30 mg PO HS #30 tabs 07/27/24 Rx Hospital Stay Data Consultations 07/09/24 11:58 ED Decision to Admit Stat 07/09/24 14:49 Consult Cardiology Routine 07/11/24 07:52 Consult Nephrology Routine 07/13/24 07:45 Consult General Surgery Routine 07/14/24 15:11 Consult Electrical Logging Operator Routine 07/17/24 14:39 Consult Vascular Surgery Routine 07/19/24 16:29 Consult Urology Routine Procedures Performed Operation Date: 07/21/24 11:10 Actual Procedures p Insertion of Perm Catheter, Right Internal Jugular Approach, Ultrasound Localization of Right Internal Jugular Vein, Fluoroscopy for Positioning, Modeate Sedation 10:1029 - Gene Dyer MD Diagnostic Imagining Performed 07/11/24 13:20 US Renal Bladder [US renal/blad retro comp] Routine 07/13/24 US gallbladder Routine 07/13/24 22:55 CT chest diagnostic wo con Urgent 07/18/24 18:26 CT Brain [CT head/brain wo con] Stat 07/21/24 07:51 EV cvc insrt tunnel wo prt/filling hauler weaving Routine US EV guide vascular access Routine Chest X-Ray 07/09/24 10:52 EXAM: Radiograph of the Chest 1 View INDICATION: Chest pain. TECHNIQUE: Frontal view of the chest. COMPARISON: No relevant prior studies available. FINDINGS: Lungs and pleural spaces: The lungs are hyperinflated. There are patchy parenchymal infiltrates in both lung bases. Probable trace pleural effusions noted bilaterally. No pneumothorax. Heart: Mildly enlarged cardiac shadow. Mediastinum: Normal contour. Bones/joints: No fracture, erosion or dislocation. Soft tissues: No abnormality noted. No radiopaque foreign body noted. Upper abdomen: No abnormality noted. IMPRESSION: Patchy bilateral lower lobe infiltrates concerning for pneumonia. Trace pleural effusions. ACT 112: Negative or not required by law. Electronically signed by Latricia White 07-09-2024 12:07 PM Renal Ultrasound 07/11/24 13:20 RENAL ULTRASOUND CLINICAL HISTORY: ROSALBA with urine retention COMPARISON STUDY: PET/CT March 17, 2017. TECHNIQUE: Sonography of the kidneys and the urinary bladder was performed. FINDINGS: There is no hydronephrosis. The right kidney measures 10 cm in maximal dimension and the left measures 7.7 cm. There is mild right renal cortical thinning. Marked left renal atrophy is again noted. Anechoic bilateral renal lesions represent cysts. These measure up to 3 cm. A Garcia within the bladder is noted. The bladder wall is markedly thickened, accentuated by underdistention. The wall measures 2.4 cm in thickness. A left pleural effusion is incidentally noted. There are gallstones within the gallbladder. The gallbladder wall is thickened and edematous. There is trace pericholecystic fluid. No sonographic Alfaro sign was elicited. IMPRESSION: 1. No hydronephrosis. 2. Atrophic left kidney. 3. Marked bladder wall thickening, a nonspecific finding accentuated by underdistention. 4. Left pleural effusion. 5. Cholelithiasis. ACT 112: Negative or not required by law. Electronically signed by: Dwain Gonzalez M.D. 07/11/2024 3:28 PM Gallbladder Ultrasound 07/13/24 00:00 EXAM: US gallbladder CLINICAL HISTORY: Gallstones, RUQ pain Panc: Hard to visualize Liver: 14.1cm GB: Multiple mobile stones seen. NEG ALFARO''S GB Wall: .2cm ? trace pericholecystic fluid seen CBD: .3cm Right Kidney: 8.7cm no hydro Cysts seen. Largest UP: 3 x 3 x 2,8cm TECHNIQUE: Ultrasound examination of the RUQ was performed using a high-frequency transducer. Scanning was performed with the patient in supine position. The following structures were specifically evaluated: COMPARISON: 07/11/2024. FINDINGS: Liver: Liver size: Difficult to visualize liver. The liver appears normal in size measuring 14.1 cm with homogeneous echotexture. No evidence of focal lesions, cysts, or masses. Hepatic vasculature appears normal. Gallbladder: Gallbladder size: contains multiple mobile gallstones of varying sizes measuring up to 1.5cm. The gallbladder wall measure 2-3mm A mild trace of pericholecystic fluid was noted. Alfaro sign is negative Biliary Tree: Common bile duct diameter: measure 3mm. The common bile duct is within normal limits in caliber and not dilated. No evidence of choledocholithiasis or biliary obstruction. Right Kidney: Right kidney size: Measure 8.7cm in length. Right kidney appears normal in size with preserved corticomedullary differentiation. No evidence of hydronephrosis or masses. A few simple renal cysts were noted, the largest on the upper pole measuring up to 3cm. Panreas: Not seen due to bowel gases IMPRESSION: 1. Slight interval regression in the GB wall edema measuring 2-3mm, in comparison to the prior US on 07/11/2024. 2. The rest of the findings are stable. 3. Multiple mobile gallstones measuring up to 1.5cm and a mild trace of pericholecystic fluid was noted. 4. Clinical correlation is recommended. Electronically signed by Jeff Stuart 07-13-2024 02:16 AM Hepatobiliary Scan Nuclear Medicine 07/13/24 11:00 NM hepatobiliary CLINICAL HISTORY: Cholelithiasis TECHNIQUE: Following the intravenous injection of 5 mCi of Tc-99m labeled Technetium 99m mebrofenin, multiple images of the upper abdomen were obtained in the anterior projection with uptake measurements of the gallbladder obtained. Comparison: Comparison is made to right upper quadrant ultrasound 07/13/2024 FINDINGS: Sequential images demonstrate normal uptake in the liver, common bile duct, gallbladder, and small bowel. No defects in uptake are identified. Subsequent imaging after the administration of sincalide demonstrates prompt elimination of the radiotracer from the gallbladder. IMPRESSION: Normal uptake of contrast by the gallbladder. No evidence of acute cholecystitis. Reference: Normal gallbladder ejection fraction is greater than 33%. ACT 112: Negative or not required by law. Electronically signed by: Trevor Peña M.D. 07/13/2024 12:26 PM Chest X-Ray 07/13/24 18:50 Exam(s): XR CXR 1 VIEW EXAM: XR Chest, 1 View CLINICAL HISTORY: Reason for exam: hypoxia > eval for HF; ?PNA progression. TECHNIQUE: Frontal view of the chest. COMPARISON: 07/09/24 FINDINGS: Lungs: Increasing vascular congestion and interstitial prominence. Worsening right greater than left lower lung zone airspace opacities, which may represent edema and/or pneumonia. Pleural space: Unremarkable. No pneumothorax. Heart: Sternotomy. Stable heart size. Bones/joints: High riding left humeral head suggesting rotator cuff tear. No acute osseous findings as visualized. Small effusions. Vasculature: Calcified thoracic aorta. IMPRESSION: 1. Increasing vascular congestion and interstitial prominence. Appearance may represent pulmonary edema. 2. Worsening right greater than left lower lung zone airspace opacities, which may represent edema and/or pneumonia. 3. Small effusions. Electronically signed by: Анна Zaman M.D. 07/13/24 20:[address] 07/13/24 22:55 Exam(s): CT CHEST Without Contrast EXAM: CT Chest Without Intravenous Contrast CLINICAL HISTORY: Reason for exam: chf/pneumonia. TECHNIQUE: Axial computed tomography images of the chest without intravenous contrast. CTDI is 8.42 mGy and DLP is 302.03 mGy-cm. Automated exposure control was utilized for the study. A dose lowering technique was utilized adhering to the principles of ALARA. COMPARISON: No relevant prior studies available. FINDINGS: Lungs: Emphysema. Confluent airspace consolidations in the dependent lower lobes bilaterally, favored atelectasis. Dependent septal thickening and ground-glass lung attenuation the upper lobes, possibly combination of atelectasis and edema. Calcified granulomas right lower lobe. Pleural space: Moderate pleural effusions. No pneumothorax. Heart: Coronary artery atherosclerosis. No cardiomegaly or pericardial effusion. Bones/joints: Sternotomy. Osteopenia. No acute fracture or dislocation. Soft tissues: Unremarkable. Vasculature: Calcified thoracic aorta without aneurysm. Normal caliber main pulmonary artery. Lymph nodes: Unremarkable. No enlarged lymph nodes. Gallbladder and bile ducts: Cholelithiasis. Kidneys and ureters: Visualized portion of the left kidney appears atrophic. Intraperitoneal space: Trace perihepatic ascites. IMPRESSION: 1. Moderate pleural effusions. 2. Confluent airspace consolidations in the dependent lower lobes bilaterally, favored compressive atelectasis. Intercurrent pneumonia cannot be completely excluded. 3. Dependent septal thickening and ground-glass lung attenuation the upper lobes, possibly combination of atelectasis and edema. 4. Visualized portion of the left kidney appears atrophic. Electronically signed by: Анна Zaman M.D. 07/14/24 00:03 AM Chest X-Ray 07/14/24 21:49 Exam(s): XR CXR 1 VIEW EXAM: XR Chest, 1 View CLINICAL HISTORY: Reason for exam: line conformation. TECHNIQUE: Frontal view of the chest. COMPARISON: 07/13/24 at 1921 hrs. FINDINGS: Lungs: Vascular congestion and interstitial prominence appears improved from prior, which may represent improvement in palmar edema. Right greater than left bibasilar opacities appear partially cleared in the interval. Pleural space: Persistent small layering bilateral pleural effusions. No pneumothorax. Heart: Sternotomy. Stable heart size. Bones/joints: Acute osseous findings. Tubes, lines and devices: Left IJ catheter sheath with tip in the proximal SVC. IMPRESSION: 1. Vascular congestion and interstitial prominence appears improved from prior, which may represent improvement in pulmonary edema. 2. Right greater than left bibasilar opacities appear partially cleared in the interval. 3. Left IJ catheter sheath with tip in the proximal SVC. 4. Persistent small layering bilateral pleural effusions. Electronically signed by: Анна Zaman M.D. 07/14/24 23:03 PM Chest X-Ray 07/16/24 05:37 EXAM: XR chest 1V portable CLINICAL HISTORY: LOW O2. TECHNIQUE: An X-ray image of the chest was obtained in 1 view: AP projection. COMPARISON: X-ray dated 07/14/2024. FINDINGS: Pulmonary Parenchyma: Patchy airspace shadowing is seen in both mid and lower zones. Prominent bronchovascular markings were seen bilaterally. Blunting of both costophrenic angles was seen likely due to pleural effusion. Heart and Mediastinum: Heart size and shape are normal. No mediastinal widening or masses. No hilar or mediastinal lymphadenopathy. Midline sternotomy sutures were seen, status post intervention. CVP line seen with its tip in normal position. Bony Thorax: Bony thorax appears intact without fractures or deformities. Soft Tissues: Soft tissues overlying the chest wall are unremarkable. IMPRESSION: Imaging appearances are likely due to pulmonary congestion/edema, however clinical and lab correlation is advised to rule out the possibility of pulmonary infection. Interval worsening in the disease process. Electronically signed by Jeff Stuart 07-16-2024 06:48 AM Chest X-Ray 07/18/24 08:00 EXAM: XR chest 1V portable CLINICAL HISTORY: HYPOXIA KAB BME TECHNIQUE: Chest x ray performed in frontal projection. COMPARISON: 07/16/2024. FINDINGS: Pulmonary Parenchyma: Patchy airspace shadowing is seen in both mid and lower zones. Prominent bronchovascular markings were seen bilaterally. Mild left and mild to moderate right pleural effusion. Heart and Mediastinum: Heart size cannot be adequately commented on due to projection. No mediastinal widening or masses. Midline sternotomy sutures were seen. CVP line is redemonstrated with its tip in the SVC. Bony Thorax: Midline sternotomy sutures were seen. Soft Tissues: Soft tissues overlying the chest wall are unremarkable IMPRESSION: 1. Overall findings are suggestive of pulmonary congestion/edema with mild left and mild to moderate right pleural effusion. The possibility of pulmonary infection cannot be excluded. 2. No gross interval change from prior x ray. Follow-up is recommended. Electronically signed by Jeff Stuart 07-18-2024 07:52 AM Chest X-Ray 07/18/24 18:26 Exam(s): XR CXR 1 VIEW EXAM: XR Chest, 1 View CLINICAL HISTORY: Reason for exam: CHF. TECHNIQUE: Frontal view of the chest. COMPARISON: 07/18/2024 IMPRESSION: 1. Unchanged bilateral pleural effusions and basilar infiltrates versus atelectasis. 2. Left central line appears to be kinked in the region of the first rib. Electronically signed by: Jonn Hayes MD 07/18/24 19:[address] 07/18/24 18:26 Exam(s): CT HEAD Without Contrast EXAM: CT Head Without Intravenous Contrast CLINICAL HISTORY: Reason for exam: R/o Bleed. TECHNIQUE: Axial computed tomography images of the head/brain without intravenous contrast. CTDI is 38.17 mGy and DLP is 624.41 mGy-cm. Automated exposure control was utilized for the study. A dose lowering technique was utilized adhering to the principles of ALARA. COMPARISON: No relevant prior studies available. FINDINGS: Brain: Global parenchymal atrophy. No hemorrhage, extra-axial fluid collection, mass effect, or edema. Ventricles: Unremarkable. Bones/joints: Unremarkable. No fracture. Soft tissues: Unremarkable. Sinuses: Right maxillary sinus mucosal thickening. Mastoid air cells: Unremarkable as visualized. IMPRESSION: 1. No acute intracranial abnormality. Electronically signed by: Jonn Hayes MD 07/18/24 21:17 PM Pending Results Patient Have Any Pending Studies at Discharge: No Discharge Instructions Given to Patient (Per Discharging Provider) Mr. Quinn, You are being discharged. Please continue with dialysis at [facility]. We made changes to your heart medications. They recommended that you stop taking the metoprolol and take the medication Coreg instead. Please keep close follow up with your primary care provider after discharge. Please do not hesitate to come back to the emergency room if your symptoms worsen or return. It was a pleasure taking care of you while you were here. Total Time Total Time Spent Total Time Spent (In Minutes): 65
--- NOTE | 2024-07-28 07:59 | Coding Query ---
CODING QUERY To promote full compliance with coding requirements relating to patient care, provider participation is requested in all cases of laundry folder uncertainty. Please assist us with the question(s) below: Coding Question(s): Pt admitted with ROSALBA, acute on chronic CHF. Pt had dialysis /hemodialysis catheter during this Inpatient stay. Nephro notes mention ESRD. Discharge Summary documented Stage 4 CKD. Please check below the phrase that describes the chronic renal disease. Thank you. Wojciech Bassett [facility] Physician's Response(s): x__ CKD Stage 4 ESRD Other: please document: __Nephro note documents "stage 3 oliguric ROSALBA on CKD4 " and "likely ESRD" Principal Diagnosis: "that condition established after study, to be chiefly responsible for occasioning the admission of the patient to the hospital for care." Co-Existing Principal Diagnosis: "when two or more diagnoses equally meet the criteria for principal diagnosis as determined by the circumstances of admission, diagnostic work up, and/or therapy provided, and the Alphabetic Index, Tabular List, or another coding guideline does not provide sequencing direction, any one of the diagnoses may be sequenced first." "When the physician has documented what appears to be a current diagnosis in the body of the record, but has not included the diagnosis in the final diagnostic statement, the physician should be asked whether the diagnosis should be added." (Source Coding Clinic 2 QTR90. p3-4) RAMONA
== END 2024-07-27 11:14 | DRG 673 ==
LOC: ED 10:18 → SUATTDRO 12:39 → 2E 12:39 → 3N 07-12 20:47 → 4W 07-14 01:46

== ENCOUNTER 2024-09-20 15:54 | Inpatient (IN) ==
--- NOTE | 2024-09-20 16:34 | Emergency Department Note ---
Impression & Plan Chest pain, Anemia, Elevated troponin ED Provider Note NAME: MARIANA BRUSH AGE: 89 SEX: M : 1935 ARRIVES VIA: Walk-In INFORMANT: Patient ED PROVIDER(S): Avni Trivedi DO CHIEF COMPLAINT: Chest pain HPI: Patient is an 89-year-old male with a past medical history of hypertension, renal failure, on dialysis, CHF and A-fib who presents to the ER for chest pain which started around 230 today. Lasted for about 30 minutes. Radiated out through the chest. No arm or jaw pain. Went away with nitro. He is has had this off and on per the son who provides additional history for the past 2 weeks. Denies any dysuria, urgency, or frequency. Does have a history of CAD with a triple-vessel bypass. ADDITIONAL HISTORY OBTAINED: Per HPI Chronic Medical/Social Conditions Affecting Care: Per HPI PAST MEDICAL HISTORY:See Below PAST SURGICAL HISTORY:See Below FAMILY HISTORY:See Below SOCIAL HISTORY:See Below HOME MEDICATIONS:See Below ALLERGIES:See Below VITALS:See Below PHYSICAL EXAMINATION: GENERAL: Sitting up in bed, alert, well appearing, well nourished, no distress, non-toxic EYE EXAM: normal conjunctiva. OROPHARYNX: mucous membranes are moist LUNGS: Clear to auscultation. Normal chest wall mechanics HEART: no murmurs, S1 normal and S2 normal ABDOMEN: abdomen soft, non-tender, normo-active bowel sounds, no masses, no rebound or guarding. BACK: Back is symmetrical on inspection and there is no deformity, no midline tenderness, no CVA tenderness. SKIN: no rashes and no bruising UPPER EXTREMITIES: upper extremities are grossly normal. LOWER EXTREMITIES: No pitting edema. NEURO EXAM: Normal sensorium, cranial nerves II-XII grossly intact, normal speech, no gross weakness of arms, no gross weakness of legs. MEDICAL DECISION MAKING: Patient is an 89-year-old male who presents ER for the below stated complaint. IV was established and blood work was obtained. Labs show no significant leukocytosis. Mild anemia 10. INR unremarkable. BMP with creatinine 1.5. Troponin mildly elevated at 36. EKG was unchanged. Patient was given aspirin and nitro in the ER. He was updated bedside. Discussed case with the hospitalist for further evaluation management treatment. Patient had a recurrence of the chest pain while he was here and did resolve with nitro. Consults/Care Managements Discussions: Per [facility] Triage Nursing notes reviewed. Limited review of prior medical records performed Vital Signs: reviewed and remarkable for no significant abnormalities Differential diagnosis: Cardiac ischemia, aortic dissection, pulmonary embolism, pneumothorax, pneumonia, pericarditis, myocarditis, esophageal rupture, GERD, cholecystitis, pancreatitis, musculoskeletal, as well as other pathologies. ER treatment provided: See below Diagnostics interpreted by me include EKG and cardiac monitoring as listed below: -Cardiac Monitoring: An order was placed for continuous cardiac monitoring. The monitor shows a rate of 99 with afib rhythm. -ECG: A-fib burden 98 Normal axis No PVCs QTc 408 EKG #2 A-fib rate of 107 Right axis No PVCs QTc 504 -Laboratory studies:Interpreted by me as stated above in MDM and shown below. Imaging studies: Xrays: As interpreted by me: Portable AP upright 1 view of the chest shows no focal infiltrate CTs show: None Procedures: None Critical Care: None Past Med/Surg History Problem List (Updated 09/20/24 @ 22:08 by Avni Trivedi DO) Elevated troponin (Acute) Anemia (Acute) Anemia Atrial fibrillation with rapid ventricular response Hyperkalemia Cholelithiasis Gallstones Pneumonia Hypertension, uncontrolled BPH with urinary obstruction Decreased appetite Acute renal failure superimposed on stage 4 chronic kidney disease Acute on chronic heart failure with preserved ejection fraction ASCVD (arteriosclerotic cardiovascular disease) Elevated troponin Acute kidney injury Hypertensive urgency CKD (chronic kidney disease) CHF (congestive heart failure) Poorly-controlled hypertension Nausea & vomiting (Acute) Chest pain (Acute) Encounter for pre-operative examination Medical History (Updated 09/20/24 @ 22:08 by Avni Trivedi DO) ESRD (end stage renal disease) on dialysis Penile edema Esophageal dysmotility Slow to wake up after anesthesia Vascular disease, peripheral BPH (benign prostatic hyperplasia) Hiatal hernia Dysphagia Belching continuous x several hours after eating/drinking GERD (gastroesophageal reflux disease) History of kidney cancer 2010 cryoablation therapy; follows with [facility] 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 Lai/Dr. Mancilla History of TIA (transient ischemic attack) 2018 History of myocardial infarction 1992 Hyperlipemia HTN (hypertension) COPD (chronic obstructive pulmonary disease) Surgical History History of tooth extraction History of vascular surgery stent LLE History of esophagogastroduodenoscopy (EGD) History of colonoscopy History of prior ablation treatment History of heart artery stent "quite a few" (2 placed 03/2019 and mult prior to) History of cardiac catheterization most recent 03/2019 at [facility] - 2 stents placed; mult caths at [facility]; mult stents (unable to recall specifics) History of coronary artery bypass graft x 3 1996 Family History (Updated 09/20/24 @ 18:31 by Savannah Goff PA-C) Other Coronary heart disease No family history of adverse response to anesthesia Social History Smoking Status: Former smoker Second Hand Exposure: No; Do You Dip or Chew Tobacco: No; Hx Alcohol Use: No Hx Substance Use: No Preferred Language: Turkmen Communication Ability: Effective Smooth Stucco Resurfacer Required: No Beliefs That Will Affect Care: None Current Living Situation: Spouse Feels Safe at Home: Yes Assistive Devices: Denture - Upper, Denture - Lower and Hearing Aid - Bilateral Allergies Allergies Allergy/AdvReac Type Severity Reaction Status Date / Time ciprofloxacin [From Cipro] AdvReac Vomiting Verified 09/19/20 10:27 Iodinated Contrast Media AdvReac Unknown Verified 09/19/20 10:27 Home Meds Home Medications Medication Instructions Recorded Confirmed acetaminophen 325 mg tablet 325 mg PO QID PRN Pain 09/16/20 09/20/24 (Tylenol) albuterol 90 mcg/actuation aerosol 90 mcg inhalation UD PRN sob 09/16/20 09/20/24 inhaler amlodipine 5 mg tablet (Norvasc) 5 mg PO BID 09/16/20 09/20/24 aspirin 81 mg tablet,delayed 81 mg PO BID 09/16/20 09/20/24 release clopidogrel 75 mg tablet (Plavix) 75 mg PO QAM 09/16/20 09/20/24 finasteride 5 mg tablet 5 mg PO QAM 09/16/20 09/20/24 fluticasone 250 mcg-salmeterol 50 1 inh inhalation BID 09/16/20 09/20/24 mcg/dose blistr powdr for inhalation (Advair Diskus) nitroglycerin 0.4 mg sublingual 0.4 mg sublingual UD PRN Chest Pain 09/16/20 09/20/24 tablet (Nitrostat) pantoprazole 40 mg tablet,delayed 40 mg PO QAM 09/16/20 09/20/24 release (Protonix) rosuvastatin 20 mg tablet (Crestor) 20 mg PO QPM 09/16/20 09/20/24 tamsulosin 0.4 mg capsule 0.4 mg PO QPM 09/16/20 09/20/24 hydralazine 10 mg tablet 10 mg PO TID 07/09/24 09/20/24 isosorbide dinitrate 5 mg tablet 5 mg PO TID 07/09/24 09/20/24 docusate sodium 100 mg tablet 100 mg PO HS 09/20/24 09/20/24 sucroferric oxyhydroxide 500 mg 500 mg PO TIDM 09/20/24 09/20/24 chewable tablet (Velphoro) Previous Rx's Medication Instructions Recorded carvedilol 25 mg tablet 25 mg PO BIDM #60 tabs 07/27/24 mirtazapine 30 mg tablet 30 mg PO HS #30 tabs 07/27/24 Results & Data (ED) Vital Signs Vital Signs - 24 hr 09/20/24 16:02 09/20/24 16:37 09/20/24 16:37 Temperature 36.5 C Temperature Source Oral Pulse Rate 112 H Pulse Rate [Apical] Respiratory Rate 18 Respiratory Effort / Characteristics Non-Labored Spontaneous Respiratory Depth Normal Respiratory Pattern Regular Blood Pressure 137/90 Blood Pressure [Right Arm] Blood Pressure Mean 105 Blood Pressure Mean [Right Arm] Pulse Oximetry 95 Oxygen Delivery Method Room Air Room Air Room Air Sepsis Recent Fever Within 48 Hours No Sepsis New/Unexplained Change in Mental Status N/A Sepsis Action Taken by Nursing No Action Required 09/20/24 16:38 09/20/24 17:18 09/20/24 17:36 Temperature Temperature Source Pulse Rate 93 H 112 H Pulse Rate [Apical] 113 H Respiratory Rate 24 Respiratory Effort / Characteristics Respiratory Depth Respiratory Pattern Blood Pressure 177/121 H Blood Pressure [Right Arm] 172/115 H Blood Pressure Mean Blood Pressure Mean [Right Arm] 134 Pulse Oximetry 92 Oxygen Delivery Method Room Air Sepsis Recent Fever Within 48 Hours Sepsis New/Unexplained Change in Mental Status Sepsis Action Taken by Nursing 09/20/24 17:43 Temperature Temperature Source Pulse Rate Pulse Rate [Apical] 112 H Respiratory Rate Respiratory Effort / Characteristics Respiratory Depth Respiratory Pattern Blood Pressure Blood Pressure [Right Arm] 167/90 H Blood Pressure Mean Blood Pressure Mean [Right Arm] 115 Pulse Oximetry Oxygen Delivery Method Sepsis Recent Fever Within 48 Hours Sepsis New/Unexplained Change in Mental Status Sepsis Action Taken by Nursing Laboratory Data 09/20/24 16:10 09/20/24 16:10 Lab Results 09/20/24 Range/Units 16:10 WBC 5.04 (4.8-10.8) K/ul RBC 3.24 L (4.70-6.10) M/uL Hgb 10.3 L (14.0-18.0) g/dl Hct 30.3 L (42.0-52.0) % MCV 93.5 (80.0-100.0) fL MCH 31.8 (25.0-34.0) pg MCHC 34.0 (32.0-36.0) g/dL RDW Std Deviation 53.1 H (36.4-46.3) fL RDW Coeff of Jessica 15.4 H (11.5-14.5) % Plt Count 206 (130-400) K/uL MPV 9.9 (9.4-12.4) fL Immature Gran % (Auto) 0.4 % Neut % (Auto) 53.5 % Lymph % (Auto) 20.8 % [place] % (Auto) 18.5 % Eos % (Auto) 6.2 % Baso % (Auto) 0.6 % Neut # (Auto) 2.70 (1.40-6.50) K/uL Lymph # (Auto) 1.05 L (1.20-3.40) K/uL [place] # (Auto) 0.93 H (0.11-0.59) K/uL Eos # (Auto) 0.31 (0.00-0.50) K/uL Baso # (Auto) 0.03 (0.00-0.20) K/uL Immature Gran # (Auto) 0.02 (0.01-0.20) K/uL PT 10.5 (9.0-12.0) Seconds INR 1.0 (0.9-1.1) APTT 22 (21-31) Seconds PTT Ratio 0.8 Sodium 137 (136-145) mmol/L Potassium 3.6 (3.5-5.1) mmol/L Chloride 95 L (98-107) mmol/L Carbon Dioxide 37 H (21-32) mmol/L Anion Gap 5 (3-11) BUN 8 (6-23) mg/dl Creatinine 1.51 H (0.6-1.4) mg/dl Est Cr Clr Drug Dosing Not Reportable eGFR 44.15 BUN/Creatinine Ratio 5.3 L (10-20) Glucose 113 H (70-99(Fasting)) mg/dl Calcium 9.1 (8.6-10.3) mg/dl Magnesium 2.0 (1.7-2.4) mg/dl Total Bilirubin 0.5 (0.2-1.0) mg/dl AST 12 L (13-39) U/L ALT 10 (7-52) U/L Alkaline Phosphatase 57 (34-104) U/L Troponin I High Sens 24.0 H (0-20) pg/ml Total Protein 7.0 (6.0-8.3) gm/dl Albumin 4.2 (3.4-5.0) gm/dl Globulin 2.8 (2.5-4.0) gm/dl Albumin/Globulin Ratio 1.5 (0.9-2) TSH 1.996 (0.300-4.500) uIu/ml Administered Medications Heparin Sodium/Dextrose (Heparin 08742 Unit/500 Ml D5w) 25,000 units in 500 mls @ 15 mls/hr IV .Q24H [facility]; Protocol Stop: 10/20/24 18:44 Last Admin: 09/20/24 18:59 Dose: 750 units/hr, 15 mls/hr Documented By: BENNIE Co-signed By: DANTE Tramadol HCl (Tramadol Hcl 50 Mg Tablet) 25 - 50 mg PO Q4H PRN PRN Reason: Pain Stop: 10/20/24 20:15 Last Admin: 09/20/24 22:02 Dose: 50 mg Documented By: BENNIE Discontinued Medications Aspirin (Aspirin Chew 324 Mg) 324 mg PO NOW STA Stop: 09/20/24 17:07 Last Admin: 09/20/24 17:17 Dose: 324 mg Documented By: BENNIE Carvedilol (Carvedilol 12.5 Mg Tab) 37.5 mg PO NOW ONE Stop: 09/20/24 20:17 Last Admin: 09/20/24 20:44 Dose: 37.5 mg Documented By: BENNIE Heparin Sodium/Dextrose (Heparin Iv Adult Wt-Based Low-Dose *No* Initial Bolus Protocol) 1 each IV Q15M [facility]; Protocol Stop: 10/20/24 18:26 Last Admin: 09/20/24 18:54 Dose: Not Given Documented By: Admin: 09/20/24 18:33 Dose: 1 each Documented By: BENNIE Ipratropium [place] (Ipratropium [place] Neb Soln 0.02% 0.5mg/2.5ml Vial) 0.5 mg INH NOW STA Stop: 09/20/24 20:33 Last Admin: 09/20/24 20:46 Dose: 0.5 mg Documented By: BENNIE Levalbuterol HCl (Levalbuterol 1.25 Mg/3 Ml Neb) 1.25 mg NEB NOW STA Stop: 09/20/24 20:33 Last Admin: 09/20/24 20:46 Dose: 1.25 mg Documented By: BENNIE Metoprolol Tartrate (Metoprolol Tartrate 1 Mg/Ml Vial) 5 mg IV NOW STA Stop: 09/20/24 17:30 Last Admin: 09/20/24 17:36 Dose: 5 mg Documented By: BENNIE Nitroglycerin (Nitroglycerin Sl 0.4 Mg/Tab Tab) 0.4 mg SL NOW STA Stop: 09/20/24 17:07 Last Admin: 09/20/24 17:17 Dose: 0.4 mg Documented By: BENNIE Nitroglycerin (Nitroglycerin Sl 0.4 Mg/Tab Tab) Confirm Administered Dose 0.4 mg .ROUTE .STK-MED ONE Stop: 09/20/24 20:19 Last Admin: 09/20/24 20:20 Dose: 0.4 mg Documented By: BENNIE Potassium Chloride (Potassium Chloride Crtab 20 Meq Tabcr) 40 meq PO NOW STA Stop: 09/20/24 18:44 Last Admin: 09/20/24 19:14 Dose: 40 meq Documented By: CHAPO Imaging Data Radiologist's Impression: Chest X-Ray 09/20/24 16:07 Chest radiograph, one view History: Chest pain Comparison: 07/18/2024 Findings: Single AP view of the chest performed. No focal consolidation. Mild blunting of the right costophrenic angle seen, decreased from prior exams. The lungs are hyperinflated and appear emphysematous. No pneumothorax. Dual-lumen right IJ central venous catheter tip is at the mid to upper SVC. The cardiomediastinal silhouette is within normal limits. Normal pulmonary vascularity. No evidence for lymphadenopathy. No visualized bony or soft tissue abnormality. Median sternotomy wires appear intact. Impression: Small right pleural effusion, appears decreased. Emphysema. Electronically signed by Perry Hatfield 09-20-2024 4:41 PM Discharge Plan Visit Data Chief Complaint: Chest Pain Stated Complaint: CHEST PAIN,?AFIB ED Provider: Avni Trivedi Discharge Problem: Chest pain, Anemia, Elevated troponin Patient Disposition: Admitted As Inpatient Discharge Instructions Interventions: ED Discharge Assessment Last Done: 09/20/24 20:09 Discharge Problem: Chest pain Qualifiers: Chest pain type: unspecified Qualified Code(s): R07.9 - Chest pain, unspecified Anemia Qualifiers: Anemia type: unspecified type Qualified Code(s): D64.9 - Anemia, unspecified
--- NOTE | 2024-09-20 16:41 | XRay Report ---
Chest radiograph, one view History: Chest pain Comparison: 07/18/2024 Findings: Single AP view of the chest performed. No focal consolidation. Mild blunting of the right costophrenic angle seen, decreased from prior exams. The lungs are hyperinflated and appear emphysematous. No pneumothorax. Dual-lumen right IJ central venous catheter tip is at the mid to upper SVC. The cardiomediastinal silhouette is within normal limits. Normal pulmonary vascularity. No evidence for lymphadenopathy. No visualized bony or soft tissue abnormality. Median sternotomy wires appear intact. Impression: Small right pleural effusion, appears decreased. Emphysema. Electronically signed by Perry Hatfield 09-20-2024 4:41 PM
[2024-09-20 16:43] LABS: Basophils # (auto) 0.03 K/uL (0.00-0.20); Basophils % (auto) 0.6 %; Eosinophils # (auto) 0.31 K/uL (0.00-0.50); Eosinophils % (auto) 6.2 %; Hematocrit (blood only) 30.3 % (42.0-52.0); Hemoglobin 10.3 g/dl (14.0-18.0); Immature Granulocytes # (auto) 0.02 K/uL (0.01-0.20); Immature Granulocytes % (auto) 0.4 %; Lymphocytes # (auto) 1.05 K/uL (1.20-3.40); Lymphocytes % (auto) 20.8 %; Mean Corpuscular Hemoglobin 31.8 pg (25.0-34.0); Mean Corpuscular Volume 93.5 fL (80.0-100.0); Mean Platelet Volume 9.9 fL (9.4-12.4); Monocytes # (auto) 0.93 K/uL (0.11-0.59); Monocytes % (auto) 18.5 %; Neutrophils % (auto) 53.5 %; Platelet Count 206 K/uL (130-400); RDW Coefficient of Variation 15.4 % (11.5-14.5); RDW Standard Deviation 53.1 fL (36.4-46.3); Red Blood Count 3.24 M/uL (4.70-6.10); White Blood Count 5.04 K/ul (4.8-10.8)
[2024-09-20 16:49] LABS: Alanine Aminotransferase 10 U/L (7-52); Albumin Globulin Ratio 1.5 (0.9-2); Albumin Level 4.2 gm/dl (3.4-5.0); Alkaline Phosphatase 57 U/L (34-104); Anion Gap 5 (3-11); Aspartate Aminotransferase 12 U/L (13-39); BUN Creatinine Ratio 5.3 (10-20); Bilirubin,Total 0.5 mg/dl (0.2-1.0); Blood Urea Nitrogen 8 mg/dl (6-23); Calcium 9.1 mg/dl (8.6-10.3); Carbon Dioxide 37 mmol/L (21-32); Chloride 95 mmol/L (98-107); Globulin 2.8 gm/dl (2.5-4.0); Glucose 113 mg/dl (70-99(Fasting)); Potassium 3.6 mmol/L (3.5-5.1); Sodium 137 mmol/L (136-145)
[2024-09-20 16:59] LABS: Partial Thromboplastin Ratio 0.8; Partial Thromboplastin Time 22 Seconds (21-31); Prothrombin Time 10.5 Seconds (9.0-12.0)
[2024-09-20] MEDS: NITROGLYCERIN SL 0.4 MG/TAB TAB SL STA (17:17)
[2024-09-20] MEDS: ASPIRIN CHEW 324 MG PO STA (17:17)
[2024-09-20] MEDS: METOPROLOL TARTRATE 1 MG/ML VIAL IV STA (17:36)
--- NOTE | 2024-09-20 17:50 | History & Physical Report ---
Date of Service September 20, 2024 Assessment & Plan (1) Atrial fibrillation with rapid ventricular response: (2) Chest pain: (3) BPH with urinary obstruction: (4) Hypertension, uncontrolled: (5) ESRD (end stage renal disease) on dialysis: (6) CHF (congestive heart failure): (7) Anemia: Plan This is an 89yo M with a complex PMH of CAD (s/p multiple stents and CABG), PAD s/p bilateral common iliac stents, TIA, bilateral carotid stenosis, ESRD on HD MWF, atrial fibrillation diagnosed in Jul 2024, systolic and diastolic CHF, COPD, GERD and other medical problems who presents with intermittent chest pain x 2 weeks. A fib with RVR Rate improved in ER after 5mg IV Lopressor from 110s now 100 In setting of a few mised doses of Carvedilol 25mg BID in the past 2 days in assisted living facility Replaced K to keep >4 Magnesium, TSH added to labs Increase Carvedilol to 37.5mg BID PRN IV Lopressor for HR > 110 Monitor on telemetry Routine cardiology consult Low dose heparin given recurrent nature of A fib and CHADVASC score of 6 - hold AM aspirin and plavix until cardiology sees Chest pain History of complex CAD history including multiple stents and CABG Intermittent pain x 2 weeks, more severe today following dialysis Pain resolved after 1 dose of nitro en route to hospital Received 325 mg aspirin Continue statin, carvedilol, isosorbide 5 mg 4 times daily Initial troponin 24 in setting of ESRD -trend overnight Monitor on telemetry Cardiology consulted PAD s/p bilateral common iliac stents Holding asa and plavix for now as above ESRD on HD MWF Had dialysis today Routine nephro consult Continue Velphoro TIDM Anemia of chronic disease Has been receiving IV iron infusions as outpatient Per recent cards communication, recommend hgb >10 given CAD Hgb 10.3 today - family reassured. Will hold off on transfusion for now Daily CBC Systolic and diastolic CHF Appears euvolemic following HD today CXR with small right pleural effusion, appears decreased DVT Ppx: IV heparin Code status: DNR/DNI, discussed with patient PCP: Liu Dispo: admitted to PCU Patient seen in collaboration with Dr. Espinoza. Please see addendum. I spent a total of 75 minutes coordinating, documenting, and providing care for this patient excluding time spent in the performance of separately billed services or time spent by another provider/QHP. History of Present Illness Chief Complaint: CP Primary Care Provider: Sunny Hatfield, This is an 89yo M with a complex PMH of CAD (s/p multiple stents and CABG), PAD s/p bilateral common iliac stents, TIA, bilateral carotid stenosis, ESRD on HD MWF, atrial fibrillation diagnosed in Jul 2024, systolic and diastolic CHF, s/p left kidney cryoablation, COPD, GERD and other medical problems who presents with intermittent chest pain x 2 weeks. Patient was recently admitted to our service from 07/09-07/27 for worsening CKD and was started on hemodialysis with catheter placement on 07/21. During that admission, was also found to be in new onset A-fib with RVR but converted to sinus rhythm and Dr. Armenta comfortable with continuing DAPT without anticoagulation unless recurrent events. Was discharged on Coreg 25 mg twice daily. Also had abdominal pain with imaging revealing gallstones but HIDA scan was negative for acute cholecystitis and patient was deemed a poor elective surgical candidate at that time. Patient was discharged to assisted living at [facility] in [place]. Has been doing well and underwent dialysis earlier today. Upon return to facility, developed chest pain around 1500 with associated gas pains. Nitroglycerin was given en route to ED and pain subsided. Patient still comfortable at rest. Per report given by family at bedside (son works at [employer] [facility] [employer] cardiology) and review of facility medication list, patient's Coreg dose was held for the past 2 days due to dose instructions followed by the [employer] techs at the facility. Per review of chart, Dr. Hatfield wanted hold parameters for hydralazine and Norvasc only (to hold medication if SBP <130 or DBP <80) but those holds had been applied to Coreg and Isosorbide as well, resulting in missed doses of both in the past few days. Did received Coreg 25mg dose this AM. Currently, patient is resting comfortably. No fever, chills, lightheadedness, chest pain, palpitations, shortness of breath, nausea, vomiting, abdominal pain, diarrhea or constipation. Limited urine output in setting of ESRD. Allergies Allergy/AdvReac Type Severity Reaction Status Date / Time ciprofloxacin [From Cipro] AdvReac Vomiting Verified 09/19/20 10:27 Iodinated Contrast Media AdvReac Unknown Verified 09/19/20 10:27 Home Medications Medication Instructions Recorded Confirmed Type acetaminophen 325 mg tablet 325 mg PO QID PRN Pain 09/16/20 09/20/24 History (Tylenol) albuterol 90 mcg/actuation aerosol 90 mcg inhalation UD PRN sob 09/16/20 09/20/24 History inhaler amlodipine 5 mg tablet (Norvasc) 5 mg PO BID 09/16/20 09/20/24 History aspirin 81 mg tablet,delayed 81 mg PO BID 09/16/20 09/20/24 History release clopidogrel 75 mg tablet (Plavix) 75 mg PO QAM 09/16/20 09/20/24 History finasteride 5 mg tablet 5 mg PO QAM 09/16/20 09/20/24 History fluticasone 250 mcg-salmeterol 50 1 inh inhalation BID 09/16/20 09/20/24 History mcg/dose blistr powdr for inhalation (Advair Diskus) nitroglycerin 0.4 mg sublingual 0.4 mg sublingual UD PRN Chest Pain 09/16/20 09/20/24 History tablet (Nitrostat) pantoprazole 40 mg tablet,delayed 40 mg PO QAM 09/16/20 09/20/24 History release (Protonix) rosuvastatin 20 mg tablet (Crestor) 20 mg PO QPM 09/16/20 09/20/24 History tamsulosin 0.4 mg capsule 0.4 mg PO QPM 09/16/20 09/20/24 History hydralazine 10 mg tablet 10 mg PO TID 07/09/24 09/20/24 History isosorbide dinitrate 5 mg tablet 5 mg PO QID 07/09/24 09/20/24 History carvedilol 25 mg tablet 25 mg PO BIDM #60 tabs 07/27/24 09/20/24 Rx mirtazapine 30 mg tablet 30 mg PO HS #30 tabs 07/27/24 09/20/24 Rx docusate sodium 100 mg tablet 100 mg PO HS 09/20/24 09/20/24 History sucroferric oxyhydroxide 500 mg 500 mg PO TIDM 09/20/24 09/20/24 History chewable tablet (Velphoro) Past Med/Surg History Problem List (Updated 09/20/24 @ 18:33 by Savannah Goff PA-C) Anemia Atrial fibrillation with rapid ventricular response Hyperkalemia Cholelithiasis Gallstones Pneumonia Hypertension, uncontrolled BPH with urinary obstruction Decreased appetite Acute renal failure superimposed on stage 4 chronic kidney disease Acute on chronic heart failure with preserved ejection fraction ASCVD (arteriosclerotic cardiovascular disease) Elevated troponin Acute kidney injury Hypertensive urgency CKD (chronic kidney disease) CHF (congestive heart failure) Poorly-controlled hypertension Nausea & vomiting (Acute) Chest pain (Acute) Encounter for pre-operative examination Medical History (Updated 09/20/24 @ 18:33 by Savannah Goff PA-C) ESRD (end stage renal disease) on dialysis Penile edema Esophageal dysmotility Slow to wake up after anesthesia Vascular disease, peripheral BPH (benign prostatic hyperplasia) Hiatal hernia Dysphagia Belching continuous x several hours after eating/drinking GERD (gastroesophageal reflux disease) History of kidney cancer 2010 cryoablation therapy; follows with [facility] nephrology 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 Lai/Dr. Mancilla History of TIA (transient ischemic attack) 2018 History of myocardial infarction 1992 Hyperlipemia HTN (hypertension) COPD (chronic obstructive pulmonary disease) Surgical History History of tooth extraction History of vascular surgery stent LLE History of esophagogastroduodenoscopy (EGD) History of colonoscopy History of prior ablation treatment History of heart artery stent "quite a few" (2 placed 03/2019 and mult prior to) History of cardiac catheterization most recent 03/2019 at [facility] - 2 stents placed; mult caths at [facility]; mult stents (unable to recall specifics) History of coronary artery bypass graft x 3 1996 Family History (Updated 09/20/24 @ 18:31 by Savannah Goff PA-C) Other Coronary heart disease No family history of adverse response to anesthesia Social History Smoking Status: Former smoker Second Hand Exposure: No; Do You Dip or Chew Tobacco: No; Hx Alcohol Use: No Hx Substance Use: No Preferred Language: Austrian Communication Ability: Effective 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 Physical Exam Physical Exam: General Appearance: WD/WN, vitals as above, NAD, sitting up in bed, pleasant, elderly male Head: normocephalic, atraumatic Eyes: normal inspection, PERRL, conjunctivae normal, anicteric sclerae ENT: hard of hearing, external ear and nose normal, oropharynx normal Neck: normal visual inspection, trachea midline, no thyromegaly Respiratory: normal respiratory effort, lungs clear to auscultation, no wheeze, rales, rhonchi. No accessory muscle use Cardiovascular: irregular rate & rhythm, normal peripheral pulses, no BLE duarte ma. Vessels: no JVD Chest: normal inspection of chest, Dialysis catheter R chest, no surrounding erythema Abdomen/GI: normal bowel sounds, soft, nontender, no hepatosplenomegaly Extremities/Musculoskeletal: no cyanosis or clubbing, extremities motor strength 5/5 Neurologic: PERRL, EOMI, accommodation nl, no face palsy, no dysarthria, CN's II-XI intact bilaterally and moves all extremities Psychiatric: A+Ox3, euthymic affect Skin: no rashes, normal color, warm/dry Results & Data Results & Data Vital Signs (Past 12 Hours) Vital Signs Temp Pulse Pulse Resp BP BP Pulse Ox 09/20/24 17:43 112 H 167/90 H 09/20/24 17:36 112 H 177/121 H 09/20/24 17:18 113 H 24 172/115 H 92 09/20/24 16:38 93 H 09/20/24 16:37 09/20/24 16:37 09/20/24 16:02 36.5 C 112 H 18 137/90 95 O2 Del Method 09/20/24 17:43 09/20/24 17:36 09/20/24 17:18 Room Air 09/20/24 16:38 09/20/24 16:37 Room Air 09/20/24 16:37 Room Air 09/20/24 16:02 Room Air Laboratory Results Short CBC 09/20/24 Range/Units 16:10 WBC 5.04 (4.8-10.8) K/ul Hgb 10.3 L (14.0-18.0) g/dl Hct 30.3 L (42.0-52.0) % Plt Count 206 (130-400) K/uL BMP 09/20/24 16:10 Sodium 137 Potassium 3.6 Chloride 95 L Carbon Dioxide 37 H BUN 8 Creatinine 1.51 H Glucose 113 H Calcium 9.1 Liver Function 09/20/24 Range/Units 16:10 Total Bilirubin 0.5 (0.2-1.0) mg/dl AST 12 L (13-39) U/L ALT 10 (7-52) U/L Alkaline Phosphatase 57 (34-104) U/L Albumin 4.2 (3.4-5.0) gm/dl Diagnostic Findings Chest X-Ray 09/20/24 16:07 Chest radiograph, one view History: Chest pain Comparison: 07/18/2024 Findings: Single AP view of the chest performed. No focal consolidation. Mild blunting of the right costophrenic angle seen, decreased from prior exams. The lungs are hyperinflated and appear emphysematous. No pneumothorax. Dual-lumen right IJ central venous catheter tip is at the mid to upper SVC. The cardiomediastinal silhouette is within normal limits. Normal pulmonary vascularity. No evidence for lymphadenopathy. No visualized bony or soft tissue abnormality. Median sternotomy wires appear intact. Impression: Small right pleural effusion, appears decreased. Emphysema. Electronically signed by Perry Hatfield 09-20-2024 4:41 PM ECG Additional Comments: A fib at 98 bpm, npn-specific ST changes Code Status & VTE Plan VTE Prophylaxis Plan VTE Prophylaxis will be ordered: Yes Supervising Physician Co-Signing Physician Notes Attending Addendum: Case reviewed with the advanced practitioner. I have personally performed a history and physical examination on the patient. I have reviewed the advanced practitioner's documentation on the date of service referenced in note, and I agree with, and take responsibility for the plan of care. please refer to her notes for full details patient seen and examined, records reviewed by myself as well on exam, patient Seen resting in bed, comfortable, not in distress Chest pain-free In good spirits, denies active shortness of breath, palpitations, dizziness Patient's daughter Elsy at the bedside providing additional history no other symptoms VS noted and reviewed oriented X 3 , not in distress, speaks in sentences with no effort nor accessory muscle use Mildly tachycardic low 100s, irregularly irregular rhythm, no murmurs clear breath sounds bilaterally non distended, soft, nontender no bipedal edema, erythema, warmth no neuro deficits all labs, imaging noted and reviewed ASSESSMENT AND PLAN> Chest pain, in the setting of A-fib, RVR, underlying CAD Patient reporting intermittent chest pain, central, with the past few days, relieved with nitro On admission, found to be in A-fib, heart rate 113 Has been given high-dose aspirin and nitro at the ER, but patient states chest pain has resolved even before administration of these medications First troponin down 24, second troponin pending EKG showing A-fib, heart rate 98 Increase carvedilol from 25 to 37.5 mg twice daily starting this evening for better heart rate control [id number] score 6, start heparin drip low-dose, no bolus Update echocardiogram Consult to cardiology service other diagnoses and plan of care as per advanced practitioner's notes I spent a total of 35 minutes coordinating, documenting, and providing care for this patient, excluding time spent in the performance of separately billed services or time spent by another provider/QHP. Dimitris Espinoza MD
[2024-09-20] MEDS ORDERED: NON-FORMULARY MEDICATION (Albuterol 90 mcg/actuation Aerosol) INH PRN (18:23)
[2024-09-20] MEDS ORDERED: METOPROLOL TARTRATE 1 MG/ML VIAL IV PRN (18:23)
[2024-09-20] MEDS ORDERED: NITROGLYCERIN SL 0.4 MG/TAB TAB SL PRN (18:25)
[2024-09-20] MEDS: Heparin IV Adult Wt-Based Low-Dose *NO* INITIAL Bolus Protocol IV SCH (18:33)
[2024-09-20] MEDS: HEPARIN 25000 UNIT/500 ML D5W 25,000 UNITS/500 ML BAG IV SCH (18:59)
[2024-09-20] MEDS: POTASSIUM CHLORIDE CRTAB 20 MEQ TABCR PO STA (19:14)
[2024-09-20 19:25] LABS: Thyroid Stimulating Hormone 1.996 uIu/ml (0.300-4.500)
[2024-09-20] MEDS ORDERED: POLYETHYLENE (MIRALAX) 17 GM PACK PO PRN (20:08)
[2024-09-20] MEDS ORDERED: ACETAMINOPHEN 325 MG TAB PO PRN (20:08)
[2024-09-20] MEDS: NITROGLYCERIN SL 0.4 MG/TAB TAB ONE (20:20)
[2024-09-20] MEDS: carvediloL 12.5 MG TAB PO ONE (20:44)
[2024-09-20] MEDS: IPRATROPIUM BROMIDE NEB SOLN 0.02% 0.5MG/2.5ML VIAL INH STA (20:46)
[2024-09-20] MEDS: LEVALBUTEROL 1.25 MG/3 ML NEB NEB STA (20:46)
[2024-09-20 20:55] LABS: Base Excess VBG 15.9 mEq/L; HCO3 VBG 41 mmol/L; Oxygen Saturation VBG < 60.0 %; PCO2 VBG 49 mmHg (38-50); PO2 VBG 23 mmHg; pH VBG 7.53 (7.36-7.41)
[2024-09-20] MEDS ORDERED: carvediloL 12.5 MG TAB PO SCH (21:00)
[2024-09-20] MEDS ORDERED: IPRATROPIUM BROMIDE NEB SOLN 0.02% 0.5MG/2.5ML VIAL INH PRN (21:18)
[2024-09-20] MEDS ORDERED: LEVALBUTEROL 1.25 MG/3 ML NEB NEB PRN (21:18)
[2024-09-20] MEDS: traMADol HCL 50 MG TABLET PO PRN (22:02)
--- NOTE | 2024-09-20 22:24 | Electrocardiogram Report ---
Test Reason : Blood Pressure : */* mmHG Vent. Rate : 98 BPM Atrial Rate : * BPM P-R Int : * ms QRS Dur : 96 ms QT Int : 320 ms P-R-T Axes : * 94 22 degrees QTcB Int : 408 ms Atrial fibrillation Rightward axis Nonspecific ST abnormality Abnormal ECG When compared with ECG of 21-Jul-2024 16:30, Questionable change in QRS axis Confirmed by Wiliam Pedroza ([id number]) on 09/20/2024 10:23:44 PM Referred By: Confirmed By: Wiliam Pedroza
[2024-09-20] MEDS: amLODIPine BESYLATE 5 MG TAB PO SCH (22:59)
[2024-09-20] MEDS: ISOSORBIDE DINITRATE 5 MG TAB PO SCH ×2 (22:59→23:35)
[2024-09-20] MEDS: hydrALAZINE 10 MG TAB PO SCH (23:00)
[2024-09-20] MEDS: ROSUVASTATIN CALCIUM 20 MG TAB PO SCH (23:01)
[2024-09-20] MEDS: DOCUSATE SODIUM 100 MG CAP PO SCH (23:03)
[2024-09-20] MEDS: MIRTAZAPINE TAB 15 MG TAB PO SCH (23:34)
[2024-09-20] MEDS: TAMSULOSIN HCL 0.4 MG CAP PO SCH (23:34)
[2024-09-21 01:51] LABS: ANTI-Xa, UFH(UnfractionatedHep 0.18 IU/ml (0.3-0.7)
[2024-09-21] MEDS: HEPARIN SOD (PORCINE) 1000 UNIT/ML IV ONE (02:37)
[2024-09-21] MEDS: ONDANSETRON INJ 2 MG/ML 2 ML VIAL IV PRN (04:54)
--- OUTSIDE RECORDS SUMMARY | 2024-09-21 07:42 | External Medical Summary | Summary of Care ---
Author Name Unknown Organization [facility] Address [address] [place] [address] Phone [phone] Care Team Providers Care Legal Billing Analyst Name Role Phone Sunny Hatfield Primary Care Provider Reason for Visit * Reason Onset Date Comments Advice 09/01/2024 Encounter Details Date Type Department Care Team (Late st Contact Info) Description 09/01/2024 Telephone Care Coordination and Integration [address], [place] [id number] Mirian Ramesh RN [address], [place] [phone] Advice Allergies Active Allergy Reactions Criticality Noted Date Comments Ciprofloxacin Nausea/vomiting 06/30/2012 Iodinated Contrast Media 01/31/2020 IVP DYE kidney issues documented as of this encounter (statuses as of 09/20/2024) Medications Fluticasone-Salme terol 250-50 MCG/DOSE Inhalation Aerosol Powder Breath Activated 2 times a day. Active aspirin enteric coated 81 MG TBEC Take by mouth 2 times a day. Active acetaminophen (TYLENOL) 500 MG Tablet Take by mouth as needed. Active Simethicone 80 MG Oral Tablet Chewable Take 1 Tablet by mouth every 6 hours as needed for Gas. Active amLODIPine Besylate 5 MG Oral Tablet (Norvasc) Take 1 Tablet by mouth in the morning and 1 Tablet before bedtime. 180 Tablet 3 Active Isosorbide Dinitrate 5 MG Oral Tablet (Isordil) Take one tablet in the morning, early afternoon, and early evening 270 Tablet 3 Active Additional Information Patient taking differently: Takes half tablet QID, Reported on 06/27/2024 Albuterol Sulfate HFA 108 (90 Base) MCG/ACT Inhalation Aerosol Solution Inhale 2 Puffs by mouth every 6 hours as needed for Wheezing. 18 g 6 Active Fluticasone-Salme terol 250-50 MCG/ACT Inhalation Aerosol Powder Breath Activated Inhale 1 Puff by mouth in the morning and 1 Puff before bedtime. 1 Each 12 Active hydrALAZINE HCl 10 MG Oral Tablet (Apresoline) Take 1 Tablet by mouth in the morning and 1 Tablet at noon and 1 Tablet before bedtime. 310 Tablet 6 Active Metoprolol Succinate ER 25 MG Oral Tablet Extended Release 24 Hour (toPROL XL) TAKE 1 TABLET BY MOUTH IN THE MORNING 90 Tablet 1 025 Active Tamsulosin HCl 0.4 MG Oral Capsule (Flomax)Indicatio ns:Urinary retention TAKE 1 CAPSULE BY MOUTH IN THE MORNING 90 Capsule 1 025 Active Lisinopril 5 MG Oral Tablet (Prinivil) TAKE 1 TABLET BY MOUTH IN THE MORNING 90 Tablet 3 025 Active Finasteride 5 MG Oral Tablet (Proscar) TAKE 1 TABLET BY MOUTH IN THE MORNING 90 Tablet 1 025 Active Clopidogrel Bisulfate 75 MG Oral Tablet (pLAVix) TAKE 1 TABLET BY MOUTH IN THE MORNING 90 Tablet 025 Active Rosuvastatin Calcium 20 MG Oral Tablet (Crestor) TAKE 1 TABLET BY MOUTH IN THE MORNING 90 Tablet 3 025 Active Nitroglycerin 0.4 MG Sublingual Tablet Sublingual (Nitrostat)Indica tions:Hx of CABG,ASCVD (arteriosclerotic cardiovascular disease) Place 1 Tablet under the tongue every 5 minutes as needed for Pain, Chest. 25 Tablet 2 025 Active Additional Information Patient not taking.Reported on 08/22/2024 Carvedilol 25 MG Oral Tablet (Coreg) Take 1 Tablet by mouth in the morning and 1 Tablet before bedtime. 025 Active Docusate Sodium 100 MG/10ML Oral Liquid Take by mouth. Activ e Velphoro 500 MG Oral Tablet Chewable Take 500 mg by mouth in the morning and 500 mg at noon and 500 mg in the evening. 025 Active Mirtazapine 30 MG Oral Tablet (Remeron) Take 1 Tablet by mouth at bedtime. 025 Active Pantoprazole Sodium 40 MG Oral Tablet Delayed Release (Protonix) Take 1 Tablet by mouth in the morning. 90 Tablet 1 024 2024 Discontinued documented as of this encounter (statuses as of 09/20/2024) Active Problems Problem Noted Date Diagnosed Date ESRD on dialysis 08/22/2024 Sacroiliitis 08/05/2023 Chronic obstructive pulmonary disease 08/05/2023 [...] as of this encounter (statuses as of 09/20/2024) Resolved Problems Problem Noted Date Diagnosed Date Resolved Date Chronic kidney disease, stage 3b 08/30/2023 08/22/2024 Overview: Per CKD protocol Chronic renal impairment, stage 3b 08/05/2023 09/02/2023 Chronic renal insufficiency, stage III (moderate) 07/07/2019 09/02/2023 Overview: Per CKD protocol documented as of this encounter (statuses as of 09/20/2024) Immunizations Name Administration Dates Next Due COVID-19 [...] drink = 0.6 oz pur e alcohol) PHQ-2 Answer Date Recorded PHQ Adult Total Score 1 08/22/2024 Hunger Vital Sign Answer Date Recorded Within the past 12 months, y ou worried that your food would run out before you got the money to buy more. Never true 08/22/19 25 Within the past 12 months, t he food you bought just didn't last and you didn't have money to get more. Never true 08/22/2024 Childcare Answer Date Recorded Do you feel overwhelmed with taking care of a child, family member or friend? No 08/22/2024 Does your family need help f inding childcare? (Household - for ages 0-17 years) Not on file 08/22/2024 Clothing Answer Date Recorded Have you been unable to get clothing when it was really needed? No 08/22/2024 Is your family able to get c lothes or diapers when needed? (Household - for ages 0-17 years) Not on file 08/22/2024 Personal Safety Answer Date Recorded Do you feel unsafe or have concerns for your saf ety? No 08/22/2024 Do you have concerns for you r family's safety? (Household - for ages 0-17 years) Not on file 08/22/2024 Utilities Answer Date Recorded Do you have trouble paying y our heating, water, or electric bill? No 08/22/2024 Is your family able to pay t he heat, water, or electric bill? (Household - for ages 0-17 years) Not on file 08/22/2024 Does your family have access to good internet? (Household - for ages 0-17 years) Not on file 08/22/2024 Employment Status Answer Date Recorded Are you unemployed or without regular income? No 08/22/2024 Does the household have a re lar source of income? (Household - for ages 0-17 years) Not on file 08/22/2024 Social Connections Answer Date Recorded How often do you feel lonely or isolated from th ose around you? Rarely 08/22/2024 Financial Resource Strain Answer Date R ecorded Do you have any trouble payi ng for your medications, or do you think you might in the future? No 08/22/2024 Does your family have troubl e paying for medicine? (Household - for ages 0-17 years) Not on file 08/22/2024 Transportation Needs Answer Date Record ed Do you have trouble getting a ride to medical visits or work? (Adult - for ages 18 years and over) Not on file 08/22/2024 Does your family have a hard time getting a ride to doctors visits? (Household - for ages 0-17 years) Not on file 08/22/2024 Has lack of transportation k ept you from medical appointments, meetings, work, or from getting things needed for daily living? Check all that apply. No 08/22/2024 Do you (or your family) have trouble finding or paying for a ride (transportation)? (Household - for ages 0-17 years) Not on file 08/22/2024 Housing Stability Answer Date Recorded Do you currently live in a s helter or have no steady place to sleep at night? No 08/22/2024 Do you think you are at risk of becoming homeless? (Adult - for ages 18 years and over) Not on file 08/22/2024 Does your family worry about paying for your home or becoming homeless? (Household - for ages 0-17 years) Not on file 0 08/22/2024 Are you homeless or worried that you might be in the future? No 08/22/2024 Are you (or your family) jaye eless or worried that you might be in the future? (Household - for ages 0-17 years) Not on file Food Insecurity Answer Date Recorded Do you need food for this week? No 08/22/2024 Are you able to get enough f ood for your family? (Household - for ages 0-17 years) Not on file 08/22/2024 Does your family need food t his week? (Household - for ages 0-17 years) Not on file 08/22/2024 Do you always have enough fo od for your family? (Household - for ages 0-17 years) Not on file 08/22/2024 Food Insecurity Answer Date Recorded Within the past 12 months, y ou worried that your food would run out before you got the money to buy more. Never true 08/22/19 25 Within the past 12 months, t he food you bought just didn't last and you didn't have money to get more. Never true 08/22/2024 Do you need food for this week? No 08/22/2024 Sex and Gender Information Value Date Recorded [...] Sher Dhaliwal RN documented in this encounter Miscellaneous Notes * Telephone Encounter - Mirian Ramesh RN - 09/12/2024 2:42 PM EST Spoke with patient today. He states he continues to have blood pressure fluctuations. Follow up call placed to [facility] ([phone]). She states information had been faxed last week. Racheal refax today, fax number was confirmed. Dr Hatfield, please watch for BP readings and advise on BP medications. * Telephone Encounter - Mirian Ramesh RN - 09/07/2024 9:47 AM EST Message left for Wendy at [facility] requesting documentation of patient's blood pressure readings and when Isordil has been given/held. Fax number and CM call back number left on voice mail. * Telephone Encounter - Sunny Hatfield DO - 09/05/2024 7:51 AM EST I would like to see documentation of this if possible from the senior living - I had been advised that he was being overtreated and that it was causing somnolence - so I'm reluctant to change this again within the same week * Telephone Encounter - Mirian Ramesh RN - 09/01/2024 12:06 PM EST Patient's daughter Irma stopped by CM office. She states patient's Isordil has a restriction on it to hold if diastolic BP is <80. She would like this restriction taken off, stating that the personal mcc will hold it at 79 and then next BP check is extremely high. Dr Hatfield, please review and advise on isordil. documented in this encounter Plan of Treatment Health Maintenance Due Date Last Done Comments Alpha-1 Antitrypsin 02/19/1953 DTap/Tdap Vaccines (1 - Tdap) 02/19/1954 Adult Wellness Visit 02/19/2002 Pneumococcal Vaccine: 50+ Years (3 of 3 - PCV) 11/03/2019 11/02/2018, 04/01/2017 COVID-19 Vaccine (3 - Moderna risk series) 10/22/2020 09/24/2020, 08/20/2020 *COPD SEVERITY VERIFIED BY PFT 08/07/2023 Depression Screening 08/22/2025 08/22/2024 O2 ASSESSMENT COMPLETED IN PAST YEAR FOR COPD 08/22/2025 08/22/2024 Zoster Vaccines Completed 08/08/2020, 05/19, 06/18/2013 Albumin/Creatinine Ratio Discontinued 03/07/2024, 07/19 Influenza Vaccine (FLU shot) Completed 05/23/2024, 04/30/2023, 04/24/2022, Additional history exists HPV (Gardasil) Vaccine Aged Out No lo nger eligible based on patient's age to complete this topic Hepatitis B Vaccine Aged Out No longe r eligible based on patient's age to complete this topic MENINGOCOCCAL (MENACTRA/MENVEO) Aged Out No longer eligible based on patient's age to complete this topic Meningitis B Vaccine (Bexsero/Trumemba) Aged Out No longer eligible based on patient's age to complete this topic documented as of this encounter Medical Devices Implanted Type Area Barrel Centerer Device Identifier Shelf Expiration Date Model / Serial / Lot Stent Viabahn [id number] 135cm - [id number] Implanted:06/19 by Francisca Pride MD at [place] [facility] [place] ([place] not on file) [employer] [id number] 12/06/2021 [id number] / [id number] / [id number] Graft Stent Viab 7mmx7.5cm - [id number] Implanted:06/19 by Francisca Pride MD at [place] [facility] [place] (Quantity not on file) [employer] [id number] 01/26/2022 [id number] / [id number] / [id number] documented as of this encounter Advance Directives Documents on File Type Date Recorded Patient Machine Cloth Measurer Expl anation POLST 09/05/2024 signed on 08/31 Advance Directives and Living Will 03/27/2014 LIVING WILL Power of Concrete Batching Plant Operator 03/27/2014 POWER OF A [facility] POA * Full Code (Latest Code Status on File) Date Activated Date Inactivated Comments 07/07/2019 11:09 AM 07/08/2019 2:52 PM This orde r reflects the patients wishes and were consensually agreed upon. Care Teams Legal Billing Analyst Relationship Specialty Start Date End Date Sunny Hatfield DO [address] [place] [address] PCP - General Family Medicine 08/05/23 documented as of this encounter
--- OUTSIDE RECORDS SUMMARY | 2024-09-21 07:42 | External Medical Summary | Summary of Care ---
Author Name Unknown Organization [facility] Address [address] [facility] [facility] [place] [address] Phone [phone] Care Team Providers Care Monumental Stonemason Name Role Phone Joy Hatfield Primary Care Provider Reason for Visit * Reason Comments eRx-Medication Refill Encounter Details Date Type Department Care Team (Late st Contact Info) Description 09/07/2024 Refill Gastroenterology, [facility] [address] [place] [address] Avi Holder DO [address] [place] [address] Allergies Active Allergy Reactions Criticality Noted Date Comments Ciprofloxacin Nausea/vomiting 06/30/2012 Iodinated Contrast Media 01/31/2020 IVP DYE kidney issues documented as of this encounter (statuses as of 09/13/2024) Medications Fluticasone-Salme terol 250-50 MCG/DOSE Inhalation Aerosol [...] 1 Tablet before bedtime. 180 Tablet 3 024 Active Isosorbide Dinitrate 5 MG Oral Tablet [...] BY MOUTH IN THE MORNING 90 Capsule 025 Active Lisinopril 5 MG Oral Tablet [...] the morning and 1 Tablet before bedtime. 01/09/2 025 Active Docusate Sodium 100 MG/10ML Oral [...] 40 MG Oral Tablet Delayed Release (Protonix) TAKE 1 TABLET BY MOUTH IN THE MORNING 90 Tablet 025 Active Pantoprazole Sodium 40 MG Oral Tablet Delayed Release (Protonix) Take 1 Tablet by mouth in the morning. 90 Tablet 1 024 2024 Discontinued documented as of this encounter (statuses as of 09/13/2024) Active Problems Problem Noted Date Diagnosed Date [...] as of this encounter (statuses as of 09/13/2024) Resolved Problems Problem Noted Date Diagnosed Date Resolved Date Chronic kidney disease, stage 3b 08/30/2023 08/22/2024 Overview: Per CKD protocol Chronic renal impairment, stage 3b 08/05/2023 09/02/2023 Chronic renal insufficiency, stage III (moderate) 07/07/2019 09/02/2023 Overview: Per CKD protocol documented as of this encounter (statuses as of 09/13/2024) Immunizations Name Administration Dates Next Due COVID-19 [...] No 08/22/2024 Does the household have a [facility] source of income? (Household - for ages [...] encounter Miscellaneous Notes * Telephone Encounter - Joy Hatfield DO - 09/13/2024 1:20 PM EST Signed Prescriptions: Disp Refills Pantoprazole Sodium 40 MG Oral Tablet Ade*90 Tab*0 Sig: TAKE 1 TABLET BY MOUTH IN THE MORNING Authorizing Provider: JOY HATFIELD * Telephone Encounter - Tiffani Clayton OSA - 09/12/2024 4:13 PM ESTPending Prescriptions: Disp Refills Pantoprazole Sodium 40 MG Oral Tablet Ade*90 Tab*0 Sig: TAKE 1 TABLET BY MOUTH IN THE MORNING * Telephone Encounter - Tiffani Clayton, GUI - 09/12/2024 4:12 PM EST Pt states he will have pcp do his refills. * Telephone Encounter - Patricia Willams CMA - 09/11/2024 3:45 PM ESTPending Prescriptions: Disp Refills Pantoprazole Sodium 40 MG Oral Tablet Ade*90 Tab*0 Sig: TAKE 1 TABLET BY MOUTH IN THE MORNING * Telephone Encounter - Leona Lake, watch train assembler - 09/11/2024 1:21 PM ESTPending Prescriptions: Disp Refills Pantoprazole Sodium 40 MG Oral Tablet Ade*90 Tab*0 Sig: TAKE 1 TABLET BY MOUTH IN THE MORNING * Telephone Encounter - Leona Lake, watch train assembler - 09/11/2024 1:20 PM EST Received message from [facility] regarding patient needing an appointment. Call Placed, Pt was agreeable to set up appointment but did not want to schedule at this time. Patient advised they will call back to set up appointment. Thank you, Leona Lake [facility] Maintenance Foreman III [facility] 09/11/2024,1:20 PM * Telephone Encounter - Interface, [facility] S[facility] Inbound - 09/11/2024 8:32 AM EST Pending Prescriptions: Disp Refills Pantoprazole Sodium 40 MG Oral Tablet Ade*90 Tab*0 Sig: TAKE 1 TABLET BY MOUTH IN THE MORNING * Telephone Encounter - Anna Espinoza [facility] - 09/07/2024 11:27 AM EST Pending Prescriptions: Disp Refills Pantoprazole Sodium 40 MG Oral Tablet Ade*90 Tab*0 Sig: TAKE 1 TABLET BY MOUTH IN THE MORNING * Telephone Encounter - Anna Espinoza [facility] - 09/07/2024 11:16 AM EST Please contact patient so that an appointment can be scheduled with his GASTROENTEROLOGY provider before this refill can be authorized. After contacting patient, please forward [place] to [place] [phone]. Last Visit: Visit date not found (in office), Visit date not found (telemedicine) Next Visit: Visit date not found Thank you, Anna Espinoza, PharmD Clinical Pharmacist [facility] ([facility]) [phone] 09/07/2024, 11:17 AM documented in this encounter Plan of Treatment [...] this encounter Medical Devices Implanted Type Area Preschool Assistant Principal Device Identifier Shelf Expiration Date Model / Serial / Lot Stent Viabahn [id number] 135cm - [id number] Implanted:06/19 by Francisca Pride MD [place] [facility] [place] (Quantity not on file) [employer] [id number] 12/06/2021 [id number] / [id number] / [id number] Graft Stent Viab 7mmx7.5cm - [id number] Implanted:06/19 by Francisca Pride MD at [place] [facility] [place] (Quantity not on file) [employer] [id number] 01/26/2022 [id number] / [id number] / [id number] documented as of this encounter Advance Directives Documents on File Type Date Recorded Patient Demolitionist Priya PERRY 09/05/2024 signed on 08/31 Advance Directives and Living Will 03/27/2014 LIVING WILL Power of Risk Mgr 03/27/2014 POWER OF A [facility] D[facility] C[facility] POA * Full Code (Latest Code Status on File) Date Activated Date Inactivated Comments 07/07/2019 11:09 AM 07/08/2019 2:52 PM This orde r reflects the patients wishes and were consensually agreed upon. Care Teams Monumental Stonemason Relationship Specialty Start Date End Date Joy Hatfield DO [address] [place] [address] PCP - General Family Medicine 08/05/23 documented as of this encounter
--- OUTSIDE RECORDS SUMMARY | 2024-09-21 07:43 | External Medical Summary | Summary of Care ---
Author Name Unknown Organization [facility] Address [address] [facility] [place] [address] Phone [phone] Care Team Providers Care Negative Retoucher Name Role Phone Joy Hatfield DO Primary Care Provider Reason for Visit * Reason Comments eRx-Medication Refill Encounter Details Date Type Department Care Team (Late st Contact Info) Description 08/10/[address] [facility] [address] [place] [address] Joy Hatfield DO [address] [place] [address] Urinary retention Allergies Active Allergy Reactions Criticality Noted Date Comments Ciprofloxacin Nausea/vomiting 06/30/2012 Iodinated Contrast Media 01/31/2020 IVP DYE kidney issues documented as of this encounter (statuses as of 08/14/2024) Medications nitroglycerin (NITROSTAT) 0.4 MG SUBL 2 02/12/20 17 Active Fluticasone-Sa lmeterol 250-50 MCG/DOSE Inhalation Aerosol [...] 1 Tablet before bedtime. 180 Tablet 3 03/07/20 24 Active Additional Information Patient taking differently:5 mg OralDaily(AM), Reported on 06/27/2024 Isosorbide Dinitrate 5 MG Oral Tablet (Isordil) Take one tablet in the morning, early afternoon, and early evening 270 Tablet 3 03/27/20 24 Active Additional Information Patient taking differently: Takes half tablet QID, Reported on 06/27/2024 Pantoprazole Sodium 40 MG Oral Tablet Delayed Release (Protonix) Take 1 Tablet by mouth in the morning. 90 Tablet 1 04/06/20 24 Active Albuterol Sulfate HFA 108 (90 Base) MCG/ACT Inhalation Aerosol Solution Inhale 2 Puffs by mouth every 6 hours as needed for Wheezing. 18 g 6 06/27/20 Active Fluticasone-Sa lmeterol 250-50 MCG/ACT Inhalation Aerosol Powder Breath Activated Inhale 1 Puff by mouth in the morning and 1 Puff before bedtime. 1 Each 12 06/27/20 24 Active hydrALAZINE HCl 10 MG Oral Tablet (Apresoline) Take 1 Tablet by mouth in the morning and 1 Tablet at noon and 1 Tablet before bedtime. 310 Tablet 6 06/27/20 24 Active Metoprolol Succinate ER 25 MG Oral Tablet Extended Release 24 Hour (toPROL XL) TAKE 1 TABLET BY MOUTH IN THE MORNING 90 Tablet 1 07/24/19 25 Active Tamsulosin HCl 0.4 MG Oral Capsule (Flomax)Indica tions:Urinary retention TAKE 1 CAPSULE BY MOUTH IN THE MORNING 90 Capsule 08/11/19 25 Active Lisinopril 5 MG Oral Tablet (Prinivil) TAKE 1 TABLET BY MOUTH IN THE MORNING 90 Tablet 08/14/19 25 Active Finasteride 5 MG Oral Tablet (Proscar) TAKE 1 TABLET BY MOUTH IN THE MORNING 90 Tablet 08/11/19 25 Active Clopidogrel Bisulfate 75 MG Oral Tablet (pLAVix) TAKE 1 TABLET BY MOUTH IN THE MORNING 90 Tablet 08/11/19 25 Active Rosuvastatin Calcium 20 MG Oral Tablet (Crestor) TAKE 1 TABLET BY MOUTH IN THE MORNING 90 Tablet 3 08/14/19 25 Active Tamsulosin HCl 0.4 MG Oral Capsule (Flomax)Indica tions:Urinary retention Take 1 Capsule by mouth in the morning. 90 Capsule 3 08/05/19 24 025 Discontinued Rosuvastatin Calcium 20 MG Oral Tablet (Crestor) Take 1 Tablet by mouth in the morning. 90 Tablet 3 08/05/19 24 025 Discontinued Lisinopril 5 MG Oral Tablet (Prinivil) Take 1 Tablet by mouth in the morning. 90 Tablet 3 08/05/19 24 025 Discontinued Finasteride 5 MG Oral Tablet (Proscar) Take 1 Tablet by mouth in the morning. 90 Tablet 3 08/05/19 24 025 Discontinued Clopidogrel Bisulfate 75 MG Oral Tablet (Plavix) Take 1 Tablet by mouth in the morning. 30 Tablet 11 08/05/19 24 025 Discontinued documented as of this encounter (statuses as of 08/14/2024) Active Problems Problem Noted Date Diagnosed Date [...] as of this encounter (statuses as of 08/14/2024) Resolved Problems Problem Noted Date Diagnosed Date Resolved Date Chronic renal impairment, stage 3b 08/05/2023 09/02/2023 Chronic renal insufficiency, stage III (moderate) 07/07/2019 09/02/2023 Overview: Per CKD protocol documented as of this encounter (statuses as of 08/14/2024) Immunizations Name Administration Dates Next Due COVID-19 [...] Telephone Encounter - Joy Hatfield DO - 08/14/2024 12:07 PM EST Signed Prescriptions: Disp Refills Tamsulosin HCl 0.4 MG Oral Capsule (Flomax)90 Cap*1 Sig: TAKE 1 CAPSULE BY MOUTH IN THE MORNING Authorizing Provider: JOY HATFIELD Ordering User: SISI LAM Lisinopril 5 MG Oral Tablet (Prinivil) 90 Tab*3 Sig: TAKE 1 TABLET BY MOUTH IN THE MORNING Authorizing Provider: JOY HATFIELD Finasteride 5 MG Oral T ablet (Proscar) 90 Tab*1 Sig: TAKE 1 TABLET BY MOUTH IN THE MORNING Authorizing Provider: JOY HATFIELD Ordering User: SISI LAM Clopidogrel Bisulfate 75 MG Oral Tablet (p*90 Tab*1 Sig: TAKE 1 TABLET BY MOUTH IN THE MORNING Authorizing Provider: JOY HATFIELD Ordering User: SISI LAM Rosuvastatin Calcium 20 MG Oral Tablet (Cr*90 Tab*3 Sig: TAKE 1 TABL ET BY MOUTH IN THE MORNING Authorizing Provider: JOY HATFIELD * Telephone Encounter - Sisi Lam [facility] - 08/11/2024 7:26 AM ESTPending Prescriptions: Disp Refills Lisinopril 5 MG Oral Tablet (Prinivil) 90 Tab*3 Sig: TAKE 1 TABLET BY MOUTH IN THE MORNING Rosuvastatin Calcium 20 MG Oral Tablet (Cr*90 Tab*3 Sig: TAKE 1 TABLET BY MOUTH IN THE MORNING Signed Prescriptions: Disp Refills Tamsulosin HCl 0.4 MG Oral Capsule (Flomax)90 Cap*1 Sig: TAKE 1 CAPSULE BY MOUT H IN THE MORNING Authorizing Provider: JOY HATFIELD Ordering User: SISI LAM Finasteride 5 MG Oral Tablet (Proscar) 90 Tab*1 Sig: TAKE 1 TABLET BY MOUTH IN THE MORNING Authorizing Provider: JOY HATFIELD Ordering User: SISI LAM Clopidogrel Bisulfate 75 MG Oral Tablet (p*90 Tab*1 Sig: TAKE 1 TABLET BY MOUTH IN THE MORNING Authorizing Provider: JOSÉ MIGUEL HATFIELD Ordering User: SISI LAM * Telephone Encounter - Sisi Lam [facility] - 08/11/2024 7:22 AM EST Unable to authorize medication refills for pended medication(s) at this time. Part of the protocol criteria used for refill authorization was not satisfied. Patient needs creatinine WNL. Please approve if appropriate. Serum creatinine: 2.5 mg/dL (H) 03/16/24 1100 Estimated creatinine clearance: 18.8 mL/min (A) Please advise regarding Crestor. Max dose patient should be on with crcl is 10 mg daily. However, patient had previous heart attack & should be on high intensity statin. Please advise if you wishto switch to atorvastatin. Thanks, Sisi Lam Clinical Pharmacist [facility] [phone] 08/11/2024, 7:23 AM documented in this encounter Plan of Treatment Upcoming Encounters Date Type Department Care Team (Late st Contact Info) Description 08/22/2024 2:20 PM EST Office Visit [facility] [address] [place] [address] Joy Hatfield, [address] [place] [address] Health Maintenance Due Date Last Done Comments Depression Screening 1947 Alpha-1 Antitrypsin 02/19/1954 DTap/Tdap Vaccines (1 - Tdap) 02/19/1955 Adult Wellness Visit 02/19/2002 Pneumococcal Vaccine: 50+ Years (3 of 3 - PCV) 11/03/2019 11/02/2018, 04/01/2017 COVID-19 Vaccine (3 - Moderna risk series) 10/22/2020 09/24/2020, 08/20/2020 *COPD SEVERITY VERIFIED BY PFT 08/07/2023 O2 ASSESSMENT COMPLETED IN PAST YEAR FOR [...] this encounter Medical Devices Implanted Type Area Sales Representative Device Identifier Shelf Expiration Date Model / Serial / Lot Stent Viabahn [id number] 135cm - [id number] Implanted:06/19 by Francisca Pride MD at [place] [facility] (Quantity not on file) [employer] [id number] 12/06/2021 [id number] / [id number] / [id number] Graft Stent Viab 7mmx7.5cm - [id number] Implanted:06/19 by Francisca Pride MD at [place] [facility] (Quantity not on file) [employer] [id number] 01/26/2022 [id number] / [id number] / [id number] documented as of this encounter Visit Diagnoses Diagnosis Urinary retention Retention of urine, unspecified documented in this encounter Advance Directives Documents on File Type Date Recorded 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 Care Teams Negative Retoucher Relationship Specialty Start Date End Date Joy Hatfield DO [address] [place] [address] PCP - General Family Medicine 08/05/23 documented as of this encounter
--- OUTSIDE RECORDS SUMMARY | 2024-09-21 07:43 | External Medical Summary | Summary of Care ---
Author Name Unknown Organization [facility] Address [address] [place] [address] Phone [phone] Care Team Providers Care Plumbing Manager Name Role Phone Sunny Hatfield Primary Care Provider Encounter Details Date Type Department Care Team (Latest Contact Info) Description 07/13/2024 1:00 AM EST - 07/13/2024 10:59 AM [facility] Hospital Encounter Radiology Film File [address] [place] [address] Discharge Disposition: Home - Self Care Allergies Active Allergy Reactions Criticality Noted Date Comments Ciprofloxacin Nausea/vomiting 06/30/2012 Iodinated Contrast Media 01/31/2020 IVP DYE kidney issues documented as of this encounter (statuses as of 07/18/2024) Medications nitroglycerin (NITROSTAT) 0.4 MG SUBL 2 [...] for Wheezing. 18 g 6 4 Active Fluticasone-Oswaldo meterol 250-50 MCG/ACT Inhalation Aerosol Powder Breath Activated Inhale 1 Puff by mouth in the morning and 1 Puff before bedtime. 1 Each 12 4 Active hydrALAZINE HCl 10 MG Oral Tablet (Apresoline) Take 1 Tablet by mouth in the morning and 1 Tablet at noon and 1 Tablet before bedtime. 310 Tablet 6 4 Active documented as of this encounter (statuses as of 07/18/2024) Active Problems Problem Noted Date Diagnosed Date [...] as of this encounter (statuses as of 07/18/2024) Resolved Problems Problem Noted Date Diagnosed Date Resolved Date Chronic renal impairment, stage 3b 08/05/2023 09/02/2023 Chronic renal insufficiency, stage III (moderate) 07/07/2019 09/02/2023 Overview: Per CKD protocol documented as of this encounter (statuses as of 07/18/2024) Immunizations Name Administration Dates Next Due COVID-19 [...] Entry Date Author No 07/07/2019 2:45 PM EST Kong, Am mayra D, RN documented in this encounter Plan of Treatment Upcoming Encounters Date Type Department Care Team (Late st Contact Info) Description 08/01/2024 10:00 AM EST Office Visit Cardiology, [facility] [address] [place] [address] Prasanna Ruiz, DO [address] [place] [address] 08/08/2024 1:00 PM EST Office Visit Family Practice [facility] [address] [place] [address] Sunny Hatfield, DO [address] [place] [address] Health Maintenance Due Date Last Done Comments [...] this encounter Medical Devices Implanted Type Area Rn Neonatal Device Identifier Shelf Expiration Date Model / Serial / Lot Stent Viabahn [id number] 135cm - [id number] Implanted:06/19 by Francisca Pride MD at [place] [facility] [place] (Quantity not on file) [employer] [id number] 12/06/2021 [id number] / [id number] / [id number] Graft Stent Viab 7mmx7.5cm - [id number] Implanted:06/19 by Francisca Pride MD at [place] [facility] [place] (Quantity not on file) [employer] [id number] 01/26/2022 [id number] / [id number] / [id number] documented as of this encounter Procedures Procedure Name Priority Date/Time Associated Diagnosis Comments RADIOLOGY EXAM - US (IMAGES ONLY, NO REPORT) Routine 07/13/2024 1:00 AM EST documented in this encounter Results * RADIOLOGY EXAM - US (IMAGES ONLY, NO REPORT) (07/13/2024 1:00 AM EST) 07/13/2024 12:5 8 AM EST Narrative Scheduling, Silent - 07/17/2024 4:28 PM EST This is an imaging study not interpreted or resulted by a [facility] or [facility]. 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 Care Teams Plumbing Manager Relationship Specialty Start Date End Date Sunny Hatfield DO [address] [place] [address] PCP - General Family Medicine 08/05/23 documented as of this encounter
--- OUTSIDE RECORDS SUMMARY | 2024-09-21 07:43 | External Medical Summary | Summary of Care ---
Author Name Unknown Organization [facility] Address [address] [facility] [place] [address] Phone [phone] Care Team Providers Care Electric Transfer Operator Name Role Phone Joy Hatfield DO Primary Care Provider Reason for Visit * Reason Comments eRx-Medication Refill Encounter Details Date Type Department Care Team (Late st Contact Info) Description 07/22/2024 Refill Family Practice [facility] [address] [place] [address] Joy Hatfield DO [address] [place] [address] Allergies Active Allergy Reactions Criticality Noted Date Comments Ciprofloxacin Nausea/vomiting 06/30/2012 Iodinated Contrast Media 01/31/2020 IVP DYE kidney issues documented as of this encounter (statuses as of 07/24/2024) Medications nitroglycerin (NITROSTAT) 0.4 MG SUBL 2 [...] the morning. 90 Capsule 3 08/05/19 24 Active Rosuvastatin Calcium 20 MG Oral Tablet (Crestor) Take 1 Tablet by mouth in the morning. 90 Tablet 3 08/05/19 24 Active Lisinopril 5 MG Oral Tablet (Prinivil) Take 1 Tablet by mouth in the morning. 90 Tablet 3 08/05/19 24 Active Finasteride 5 MG Oral Tablet (Proscar) Take 1 Tablet by mouth in the morning. 90 Tablet 3 08/05/19 24 Active Clopidogrel Bisulfate 75 MG Oral Tablet (Plavix) Take 1 Tablet by mouth in the morning. 30 Tablet 11 08/05/19 24 Active amLODIPine Besylate 5 MG Oral Tablet [...] needed for Wheezing. 18 g 6 06/27/20 24 Active Fluticasone-Sa lmeterol 250-50 MCG/ACT Inhalation Aerosol [...] MORNING 90 Tablet 1 07/24/19 25 Active Metoprolol Succinate ER 25 MG Oral Tablet Extended Release 24 Hour (toPROL XL) Take 1 Tablet by mouth in the morning. 90 Tablet 3 08/05/19 24 025 Discontinued documented as of this encounter (statuses as of 07/24/2024) Active Problems Problem Noted Date Diagnosed Date [...] as of this encounter (statuses as of 07/24/2024) Resolved Problems Problem Noted Date Diagnosed Date Resolved Date Chronic renal impairment, stage 3b 08/05/2023 09/02/2023 Chronic renal insufficiency, stage III (moderate) 07/07/2019 09/02/2023 Overview: Per CKD protocol documented as of this encounter (statuses as of 07/24/2024) Immunizations Name Administration Dates Next Due COVID-19 [...] Date Author No 07/07/2019 2:45 PM EST Sher Triana RN documented in this encounter Miscellaneous Notes * Telephone Encounter - Ebony Gandhi [facility] - 07/24/2024 4:13 PM ESTSigned Prescriptions: Disp Refills Metoprolol Succinate ER 25 MG Oral Tablet *90 Tab*1 Sig: TAKE 1 TABLET BY MOUTH IN THE MORNINGAuthorizing Provider: JOY HATFIELDOrderisatu User: EBONY GANDHI documented in this encounter Plan of Treatment Upcoming Encounters Date Type Department Care Team (Late st Contact Info) Description 08/01/2024 10:00 AM EST Office Visit Cardiology, [facility] [address] [place] [address] Prasanna Ruiz DO [address] [place] [address] 08/08/2024 1:00 PM EST Office Visit Family Practice [facility] [address] [place] [address] Joy Hatfield, [address] [place] [address] Health Maintenance Due Date Last Done Comments [...] this encounter Medical Devices Implanted Type Area Striper Spray Gun Device Identifier Shelf Expiration Date Model / Serial / Lot Stent Viabahn [id number] 135cm - [id number] Implanted:06/19 by Francisca Pride MD at [place] [facility] [place] on file) [employer] [id number] 12/06/2021 [id number] / [id number] / [id number] Graft Stent Viab 7mmx7.5cm - [id number] Implanted:06/19 by Francisca Pride MD at [place] [facility] [place] ([place] not on file) [employer] [id number] 01/26/2022 [id number] / [id number] / [id number] documented as of this encounter Advance Directives Documents on File Type Date Recorded 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 Care Teams Electric Transfer Operator Relationship Specialty Start Date End Date Joy Hatfield DO [address] [place] [address] PCP - General Family Medicine 08/05/23 documented as of this encounter
--- OUTSIDE RECORDS SUMMARY | 2024-09-21 07:43 | External Medical Summary | Summary of Care ---
Author Name Unknown Organization [facility] Address [address] [facility] [place] [address] Phone [phone] Care Team Providers Care Hoof And Shoe Inspector Name Role Phone Sunny Hatfield DO Primary Care Provider Reason for Visit * Reason Comments Hospital Follow-Up Pt here for Hosp F/U . Pt admitted to [facility] on 07/09/2024 and d/c 07/27/2024. Pt has form for Adult Residential Licensing, planning to move to [facility]. 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 180 Tablet 3 03/07/20 24 Active Isosorbide Dinitrate 5 MG Oral Tablet [...] Wheezing. 18 g 6 06/27/20 24 Active Fluticasone-Salmet carmelita 250-50 MCG/ACT Inhalation Aerosol Powder Breath Activated [...] 0.4 MG Oral Capsule (Flomax)Indication s:Urinary retention TAKE 1 CAPSULE BY MOUTH IN THE MORNING 90 Capsule 1 08/11/19 25 Active Lisinopril 5 MG Oral Tablet (Prinivil) TAKE 1 TABLET BY MOUTH IN THE MORNING 90 Tablet 3 08/14/19 25 Active Finasteride 5 MG Oral Tablet (Proscar) TAKE 1 TABLET BY MOUTH IN THE MORNING 90 Tablet 1 08/11/19 25 Active Clopidogrel Bisulfate 75 MG Oral Tablet (pLAVix) TAKE 1 TABLET BY MOUTH IN THE MORNING 90 Tablet 1 08/11/19 25 Active Rosuvastatin Calcium 20 MG Oral Tablet (Crestor) TAKE 1 TABLET BY MOUTH IN THE MORNING 90 Tablet 3 08/14/19 25 Active Nitroglycerin 0.4 MG Sublingual Tablet Sublingual (Nitrostat)Indicat ions:Hx of CABG,ASCVD (arteriosclerotic cardiovascular disease) Place 1 Tablet under the tongue every 5 minutes as needed for Pain, Chest. 25 Tablet 2 08/16/19 Active Additional Information Patient not taking.Reported on 08/22/2024 Carvedilol 25 MG Oral Tablet (Coreg) Take 1 Tablet by mouth in the morning and 1 Tablet before bedtime. 07/27/19 Active Docusate Sodium 100 MG/10ML Oral Liquid Take by mouth. Activ e Velphoro 500 MG Oral Tablet Chewable Take 500 mg by mouth in the morning and 500 mg at noon and 500 mg in the evening. 08/16/19 Active Mirtazapine 30 MG Oral Tablet (Remeron) Take 1 Tablet by mouth at bedtime. 08/01/19 Active documented as of this encounter (statuses as of 08/23/2024) Active Problems Problem Noted Date Diagnosed Date [...] as of this encounter (statuses as of 08/23/2024) Resolved Problems Problem Noted Date Diagnosed Date Resolved Date Chronic kidney disease, stage 3b 08/30/2023 08/22/2024 Overview: Per CKD protocol Chronic renal impairment, stage 3b 08/05/2023 09/02/2023 Chronic renal insufficiency, stage III (moderate) 07/07/2019 09/02/2023 Overview: Per CKD protocol documented as of this encounter (statuses as of 08/23/2024) Immunizations Name Administration Dates Next Due COVID-19 [...] 08/22/2024 Does the household have a re gular source of income? (Household - for ages [...] ages 0-17 years) Not on file 08/22/2024 Sex and Gender Information Value Date Recorded Sex Assigned at Not on file Legal Sex Male 6:03 AM EST Gender Identity Not on file Sexual Orientation Not on file documented as of this encounter Last Filed Vital Signs Vital Sign Reading Time Taken Comments Blood Pressure 174/66 08/22/2024 2:13 PM EST Pulse 58 08/22/2024 2:13 PM EST Temperature 36.6 C (97.8 F) 08/22/2024 2:13 PM ES T Respiratory Rate 16 08/22/2024 2:13 PM EST Oxygen Saturation 95% 08/22/2024 2:13 PM EST Inhaled Oxygen Concentration - - Weight 61.5 kg (135 lb 9 oz) 08/22/2024 2:13 PM EST Height - - Body Mass Index 21.49 02/24/2024 11:49 AM EDT documented in this encounter Functional Status * Are you deaf or do you have serious difficulty hearing? Answer Date of Assessment Author No 07/07/2019 2:45 PM EST Sher Triana RN * Are you blind or do [...] documented in this encounter Progress Notes * Sunny Hatfield, DO - 08/22/2024 2:27 PM EST Images from the original note were not included. 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 Phosphorus levels initially elevated but responded quickly to new medications. -Continue current dialysis schedule and medications. Iron Deficiency Anemia Recent drop in iron levels, leading to pallor. Started on IV iron transfusions with noted improvement in color. -Continue with planned iron transfusions as directed by chief quality officer. Hypertension Episodes of hypotension post-dialysis leading to withholding of antihypertensive medications (Hydralazine and Norvasc). -Check blood pressure prior to dosing antihypertensives. -If BP <130/80, hold Hydralazine and Norvasc. -Resume normal dosing if BP >130/80. jCAD with coronary bypass graft Stable currently without angina HTn with CKD/ESDR As above Cabg hx Stable currently Advanced Care Planning Patient wishes for DNR status and is agreeable to antibiotics if needed. -Complete DNR paperwork and communicate patient's wishes to all members of the care team. Follow-up Patient will also be seen by a [place] nurse practitioner for medication management to reduce costs. -Continue coordination of care with [place] nurse practitioner. History of Present Illness Manish Quinn is a 89 year old male that presents for Hospital Follow-Up (Pt here for Hosp F/U. [facility] on [facility]2024 and d/c 07/27/2024. Pt has form for Adult Residential Licensing, planning to move to [facility].) History of Present Illness The patient, with a history of renal disease requiring dialysis, hypertension, and anemia, has beenrecently moved to assisted living. The patient's blood pressure has been fluctuating, and there is a discussion about managing his blood pressure medications based on his readings. The patient's appetite fluctuates, and there is a discussion about his diet and phosphorus intake. The patient has a DNR order in place. Physical Exam Vitals: 08/22/24 1413 Temp: 97.8 F (36.6 C) Pulse: 58 Resp: 16 SpO2: 95% BP: 174/66 Physical Exam Constitutional: Appearance: Normal appearance. HENT: Head: Normocephalic and atraumatic. Eyes: Extraocular Movements: Extraocular movements intact. Pupils: Pupils are equal, round, and reactive to light. Cardiovascular: Rate and Rhythm: Normal rate. Pulmonary: Effort: Pulmonary effort is normal. Breath sounds: Normal breath sounds. Abdominal: General: Abdomen is flat. Palpations: Abdomen is soft. Musculoskeletal: General: No swelling. Normal range of motion. Skin: General: Skin is warm. Neurological: General: No focal deficit present. Mental Status: He is alert and oriented to person, place, and time. Psychiatric: Mood and Affect: Mood normal. Behavior: Behavior normal. Wrap-Up Time: Total time today was 44 minutes excluding any time spent in the performance of separately billed services. Text in this note was generated using an ambient documentation service. I discussed the use of a device to record and summarize our discussion today. All persons present during the encounter consented to its use. documented in this encounter Plan of Treatment [...] this encounter Medical Devices Implanted Type Area Dip Lube Operator Device Identifier Shelf Expiration Date Model / Serial / Lot Stent Viabahn [id number] 135cm - [id number] Implanted:06/19 by Francisca Pride MD [place] [facility] [place] not on file[place] [employer] [id number] 12/06/2021 [id number] / [id number] / [id number] Graft Stent Viab 7mmx7.5cm - [id number] Implanted:06/19 by Francisca Pride MD [place] [facility] [place] (Quantity not on file) [employer] [id number] 01/26/2022 [id number] / [id number] / [id number] documented as of this encounter Visit Diagnoses Diagnosis Peripheral vascular disease (HCC)- Primary Peripheral vascular disease, unspecified 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, lymph nodes of head, face, and neck Chronic obstructive pulmonary disease, unspecified COPD type (HCC) 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) Benign hypertensive kidney disease with chronic kidney disease stage V or end stage renal disease Coronary artery disease involving coronary bypass graft, unspecified whether angina present, unspecified whether [place] or transplanted heart HTN, goal below 130/80 Unspecified essential hypertension 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) End stage renal disease Hx of CABG Postsurgical aortocoronary bypass status Sacroiliitis (HCC) Sacroiliitis, not elsewhere classified documented in this encounter Advance Directives Documents on File Type Date Recorded Patient Oxygen Equipment Aide Expl anation Advance Directives and Living Will 03/27/2014 LIVING WILL Power of Uranium Processing Supervisor 03/27/2014 POWER OF A TTORNEY DURABLE HEALTH CARE POA * Full Code (Latest Code Status on File) Date Activated Date Inactivated Comments 07/07/2019 11:09 AM 07/08/2019 2:52 PM This orde r reflects the patients wishes and were consensually agreed upon. Care Teams Hoof And Shoe Inspector Relationship Specialty Start Date End Date Sunny Hatfield DO [address] [place] [address] PCP - General Family Medicine 08/05/23 documented as of this encounter
--- OUTSIDE RECORDS SUMMARY | 2024-09-21 07:43 | External Medical Summary | Summary of Care ---
Author Name Unknown Organization [facility] Address [address] [place] [address] Phone [phone] Care Team Providers Care Medical Billing Assistant Name Role Phone Sunny Hatfield Primary Care Provider Encounter Details Date Type Department Care Team (Latest Contact Info) Description 07/13/2024 11:35 PM EST - 07/13/2024 11:59 PM EST Hospital Encounter Radiology Film File [address] [place] [address] Discharge Disposition: Home - Self [...] 08/01/2024 10:00 AM EST Office Visit Cardiology, [facility] [address] [place] [address] Prasanna Ruiz, DO [address] [place] [address] 08/08/2024 1:00 PM EST Office Visit Family Practice [facility] [address] [place] [address] Sunny Hatfield, DO [address] [place] [address] Health Maintenance Due Date Last Done Comments [...] this encounter Medical Devices Implanted Type Area Rolling Machine Tender Device Identifier Shelf Expiration Date Model / Serial / Lot Stent Viabahn [id number] 135cm - [id number] Implanted:06/19 by Francisca Pride MD [place] [facility] [place]) [employer] [id number] 12/06/2021 [id number] / [id number] / [id number] Graft Stent Viab 7mmx7.5cm - [id number] Implanted:06/19 by Francisca Pride MD at [place] [facility] [place] [place] not on file) [employer] [id number] 01/26/2022 [id number] / [id number] / [id number] documented as of this encounter Procedures Procedure Name Priority Date/Time Associated Diagnosis Comments RADIOLOGY EXAM - CT (IMAGES ONLY, NO REPORT) Routine 07/13/2024 11:35 PM EST documented in this encounter Results * RADIOLOGY EXAM - CT (IMAGES ONLY, NO REPORT) (07/13/2024 11:35 PM EST) 07/13/2024 11:3 2 PM EST Narrative Scheduling, Silent - 07/17/2024 4:20 PM EST This is an imaging study not interpreted or resulted by a [facility]. us Jorgito Moncada MD RAD CT Final Result documented in this encounter Advance Directives Documents on File Type Date Recorded Patient Frame Cleaner Expl anation Advance Directives and Living Will 03/27/2014 LIVING WILL Power of Rehabilitation Liaison 03/27/2014 POWER OF A TTORNEY DURABLE HEALTH CARE POA * Full Code (Latest Code Status on File) Date Activated Date Inactivated Comments 07/07/2019 11:09 AM 07/08/2019 2:52 PM This orde r reflects the patients wishes and were consensually agreed upon. Care Teams Medical Billing Assistant Relationship Specialty Start Date End Date Sunny Hatfield DO [address] [place] [address] PCP - General Family Medicine 08/05/23 documented as of this encounter
--- OUTSIDE RECORDS SUMMARY | 2024-09-21 07:43 | External Medical Summary | Summary of Care ---
Author Name Unknown Organization [facility] Address [address] [facility] [place] [address] Phone [phone] Care Team Providers Care Network Program Manager Name Role Phone Sunny Hatfield DO Primary Care Provider Reason for Visit * Reason Onset Date Comments Med Request 09/08/2024 Encounter Details Date Type Department Care Team (Late st Contact Info) Description 09/08/2024 Telephone Family Practice [facility] [address] [place] [address] Sunny Hatfield DO [address] [place] [address] Med Request Allergies Active Allergy Reactions Criticality Noted Date Comments Ciprofloxacin Nausea/vomiting 06/30/2012 Iodinated Contrast Media 01/31/2020 IVP DYE kidney issues documented as of this encounter (statuses as of 09/11/2024) Medications Fluticasone-Salmet carmelita 250-50 MCG/DOSE Inhalation Aerosol [...] Puff before bedtime. 1 Each 12 06/27/20 Active hydrALAZINE HCl 10 MG Oral Tablet [...] for Pain, Chest. 25 Tablet 2 08/16/19 25 Active Additional Information Patient not taking.Reported on [...] Tablet by mouth at bedtime. 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 dissolve on tongue. 30 Tablet 09/11/19 Active documented as of this encounter (statuses as of 09/11/2024) Active Problems Problem Noted Date Diagnosed Date [...] as of this encounter (statuses as of 09/11/2024) Resolved Problems Problem Noted Date Diagnosed Date Resolved Date Chronic kidney disease, stage 3b 08/30/2023 08/22/2024 Overview: Per CKD protocol Chronic renal impairment, stage 3b 08/05/2023 09/02/2023 Chronic renal insufficiency, stage III (moderate) 07/07/2019 09/02/2023 Overview: Per CKD protocol documented as of this encounter (statuses as of 09/11/2024) Immunizations Name Administration Dates Next Due COVID-19 [...] encounter Miscellaneous Notes * Telephone Encounter - Ximena Cotter CRNP - 09/11/2024 8:00 AM EST Inboxologist Covering Provider RX REFILLED All replies or additional communication must be routed to the PCP * Telephone Encounter - Brittany Arshad PHARM Tech - 09/08/2024 12:52 PM EST Jessica from [facility] requesting refills for ondansetron. Upon chart review, medication is listed as discontinued, with discontinuation reason as "none". Please advise if you wish to continue this therapy for the patient and send new prescription to [facility] [address] [address]ENZ Thank you, Brittany Arshad [facility] 09/08/2024, 12:55 PM documented in this encounter Plan of Treatment [...] this encounter Medical Devices Implanted Type Area Live Ammunition Inspector Device Identifier Shelf Expiration Date Model / Serial / Lot Stent Viabahn [id number] 135cm - [id number] Implanted:06/19 by Francisca Pride MD at [place] [facility] [place] (Quantity not on file) [employer] [id number] 12/06/2021 [id number] / [id number] / [id number] Graft Stent Viab 7mmx7.5cm - [id number] Implanted:06/19 by Francisca Pride MD at [place] [facility] [place] (Quantity not on file) [employer] [id number] 01/26/2022 [id number] / [id number] / [id number] documented as of this encounter Visit Diagnoses Diagnosis 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 Care Teams Network Program Manager Relationship Specialty Start Date End Date Sunny Hatfield DO [address] [place] [address] PCP - General Family Medicine 08/05/23 documented as of this encounter
--- OUTSIDE RECORDS SUMMARY | 2024-09-21 07:43 | External Medical Summary | Summary of Care ---
Author Name Unknown Organization [facility] Address [address] [facility] [place] [address] Phone [phone] Care Team Providers Care Distribution Manager Name Role Phone Sunny Hatfield Primary Care Provider Reason for Visit * Reason Onset Date Comments Forms Request 08/29/2024 Encounter Details Date Type Department Care Team (Late st Contact Info) Description 08/29/2024 Telephone Family Practice [facility] [address] [facility] [place] [address] Margaret Brooks LPN Forms Request Allergies Active Allergy Reactions Criticality Noted Date Comments Ciprofloxacin Nausea/vomiting 06/30/2012 Iodinated Contrast Media 01/31/2020 IVP DYE kidney issues documented as of this encounter (statuses as of 09/01/2024) Medications Fluticasone-Salmet carmelita 250-50 MCG/DOSE Inhalation Aerosol [...] morning and 1 Tablet before bedtime. 07/27/19 25 Active Docusate Sodium 100 MG/10ML Oral Liquid Take by mouth. Activ e Velphoro 500 MG Oral Tablet Chewable Take 500 mg by mouth in the morning and 500 mg at noon and 500 mg in the evening. 08/16/19 25 Active Mirtazapine 30 MG Oral Tablet (Remeron) Take 1 Tablet by mouth at bedtime. 08/01/19 Active documented as of this encounter (statuses as of 09/01/2024) Active Problems Problem Noted Date Diagnosed Date [...] as of this encounter (statuses as of 09/01/2024) Resolved Problems Problem Noted Date Diagnosed Date Resolved Date Chronic kidney disease, stage 3b 08/30/2023 08/22/2024 Overview: Per CKD protocol Chronic renal impairment, stage 3b 08/05/2023 09/02/2023 Chronic renal insufficiency, stage III (moderate) 07/07/2019 09/02/2023 Overview: Per CKD protocol documented as of this encounter (statuses as of 09/01/2024) Immunizations Name Administration Dates Next Due COVID-19 [...] encounter Miscellaneous Notes * Telephone Encounter - Margaret Brooks LPN - 08/31/2024 7:20 PM EST Polst form placed in scanning and my black folder. My G sent to pt to notify. * Telephone Encounter - Margaret Brooks LPN - 08/29/2024 3:37 PM EST Received form from Pt's son, Eulogio, as pt is now a resident of [facility]. Faxed completed form along with recent OFV notes per Dr. Hatfield to [phone]. Copy placed in scanning/My Black folder. documented in this encounter Plan of Treatment [...] this encounter Medical Devices Implanted Type Area Migration Agent Device Identifier Shelf Expiration Date Model / Serial / Lot Stent Viabahn [id number] 135cm - [id number] Implanted:06/19 by Francisca Pride [place] [facility] [place] [employer] [id number] 12/06/2021 [id number] / [id number] / [id number] Graft Stent Viab 7mmx7.5cm - [id number] Implanted:06/19 by Francisca Pride MD [place] [facility] [employer] [id number] 01/26/2022 [id number] / [id number] / [id number] documented as of this encounter Advance Directives Documents on File Type Date Recorded Patient Agricultural Equipment Test Engineer Expl anation Advance Directives and Living Will 03/27/2014 LIVING WILL Power of Leather Products Supervisor 03/27/2014 POWER OF A TTORNEY DURABLE HEALTH CARE POA * Full Code (Latest Code Status on File) Date Activated Date Inactivated Comments 07/07/2019 11:09 AM 07/08/2019 2:52 PM This orde r reflects the patients wishes and were consensually agreed upon. Care Teams Distribution Manager Relationship Specialty Start Date End Date Sunny Hatfield DO [address] [place] [address] PCP - General Family Medicine 08/05/23 documented as of this encounter
--- OUTSIDE RECORDS SUMMARY | 2024-09-21 07:43 | External Medical Summary | Summary of Care ---
Author Name Unknown Organization [facility] Address [address] [place] [address] Phone [phone] Care Team Providers Care Dry Cure Worker Name Role Phone Sunny Hatfield Primary Care Provider Encounter Details Date Type Department Care Team (Latest Contact Info) Description 07/13/2024 11:00 AM EST - 07/13/2024 11:34 PM EST Hospital Encounter Radiology Film File [address] [place] [address] Discharge Disposition: Home - Self [...] 08/01/2024 10:00 AM EST Office Visit Cardiology, [facility] [address] [place] [address] Prasanna Ruiz, DO [address] [place] [address] 08/08/2024 1:00 PM EST Office Visit Family Practice [facility] [address] [place] [address] Sunny Hatfield, DO [address] [place] [address] Health Maintenance Due Date Last Done Comments [...] this encounter Medical Devices Implanted Type Area Home Care Liaison Device Identifier Shelf Expiration Date Model / Serial / Lot Stent Viabahn [id number] 135cm - [id number] Implanted:06/19 by Francisca Pride MD [place] [facility] [place] [employer] [id number] 12/06/2021 [id number] / [id number] / [id number] Graft Stent Viab 7mmx7.5cm - [id number] Implanted:06/19 by Francisca Pride MD [place] [facility] [place] not on file) [employer] [id number] 01/26/2022 [id number] / [id number] / [id number] documented as of this encounter Procedures Procedure Name Priority Date/Time Associated Diagnosis Comments RADIOLOGY EXAM - NUC MED (IMAGES ONLY, NO REPORT) Routine 07/13/2024 11:00 AM EST documented in this encounter Results * RADIOLOGY EXAM - NUC MED (IMAGES ONLY, NO REPORT) (07/13/2024 11:00 AM EST) 07/13/2024 11:0 0 AM EST Narrative Scheduling, Silent - 07/17/2024 4:26 PM EST This is an imaging study not interpreted or resulted by a [facility]. Jorgito Moncada MD RAD NUCLEAR MED Final Result documented in this encounter Advance Directives Documents on File Type Date Recorded Patient Bag Machine Adjuster Expl anation Advance Directives and Living Will 03/27/2014 LIVING WILL Power of Binder Sorter 03/27/2014 POWER OF A TTORNEY DURABLE HEALTH CARE POA * Full Code (Latest Code Status on File) Date Activated Date Inactivated Comments 07/07/2019 11:09 AM 07/08/2019 2:52 PM This orde r reflects the patients wishes and were consensually agreed upon. Care Teams Dry Cure Worker Relationship Specialty Start Date End Date Sunny Hatfield DO [address] [place] [address] PCP - General Family Medicine 08/05/23 documented as of this encounter
--- OUTSIDE RECORDS SUMMARY | 2024-09-21 07:43 | External Medical Summary | Summary of Care ---
Author Name Unknown Organization [facility] Address [address] [place] [address] Phone [phone] Care Team Providers Care Railway Shunter Name Role Phone Sunny Hatfield Primary Care Provider Encounter Details Date Type Department Care Team (Latest Contact Info) Description 07/11/2024 2:40 PM EST - 07/11/2024 11:59 PM EST Hospital Encounter Radiology Film File [address] [place] [address] Discharge Disposition: Home - Self [...] 08/01/2024 10:00 AM EST Office Visit Cardiology, [facility] [address] [place] [address] Prasanna Ruiz, DO [address] [place] [address] 08/08/2024 1:00 PM EST Office Visit Family Practice [facility] [address] [place] [address] Sunny Hatfield, DO [address] [place] [address] Health Maintenance Due Date Last Done Comments [...] this encounter Medical Devices Implanted Type Area Supervisor Trust Accounts Device Identifier Shelf Expiration Date Model / Serial / Lot Stent Viabahn [id number] 135cm - [id number] Implanted:06/19 by Francisca Pride MD at OR [facility] [place] (Quantity not on file) [employer] [id number] 12/06/2021 [id number] / [id number] / [id number] Graft Stent Viab 7mmx7.5cm - [id number] Implanted:06/19 by Francisca Pride MD at OR [facility] [place] (Quantity not on file) [employer] [id number] 01/26/2022 [id number] / [id number] / [id number] documented as of this encounter Procedures Procedure Name Priority Date/Time Associated Diagnosis Comments RADIOLOGY EXAM - US (IMAGES ONLY, NO REPORT) Routine 07/11/2024 2:40 PM EST documented in this encounter Results * RADIOLOGY EXAM - US (IMAGES ONLY, NO REPORT) (07/11/2024 2:40 PM EST) 07/11/2024 2:39 PM EST Narrative Scheduling, Silent - 07/17/2024 4:22 PM EST This is an imaging study not interpreted or resulted by a [facility] or [facility] contracted radiologist. us Jorgito Moncada MD RAD ULTRASOUND Final Result documented in this encounter Advance Directives Documents on File Type Date Recorded Patient Keyboard Specialist Expl anation Advance Directives and Living Will 03/27/2014 LIVING WILL Power of Banquet Houseperson 03/27/2014 POWER OF A TTORNEY DURABLE HEALTH CARE POA * Full Code (Latest Code Status on File) Date Activated Date Inactivated Comments 07/07/2019 11:09 AM 07/08/2019 2:52 PM This orde r reflects the patients wishes and were consensually agreed upon. Care Teams Railway Shunter Relationship Specialty Start Date End Date Sunny Hatfield DO [address] [place] [address] PCP - General Family Medicine 08/05/23 documented as of this encounter
--- OUTSIDE RECORDS SUMMARY | 2024-09-21 07:43 | External Medical Summary | Summary of Care ---
Author Name Unknown Organization [facility] Address [address] [facility] [place] [address] Phone [phone] Care Team Providers Care Division Director Name Role Phone Sunny Hatfield Primary Care Provider Reason for Visit * Reason Onset Date Comments Forms Request 08/29/2024 Encounter Details Date Type Department Care Team (Late st Contact Info) Description 08/29/2024 Telephone Family Practice [facility] [address] [facility] [place] [address] Margaret Brooks LPN Forms Request Allergies Active Allergy Reactions Criticality Noted Date Comments Ciprofloxacin Nausea/vomiting 06/30/2012 Iodinated Contrast Media 01/31/2020 IVP DYE kidney issues documented as of this encounter (statuses as of 08/30/2024) Medications Fluticasone-Salmet carmelita 250-50 MCG/DOSE Inhalation Aerosol [...] 1 Tablet by mouth at bedtime. 08/01/19 25 Active documented as of this encounter (statuses as of 08/30/2024) Active Problems Problem Noted Date Diagnosed Date [...] 04/26/2017:Stage II(A - Asymptomatic) - Signed by Jorgtio Moncada MD on 04/26/2017 documented as of this encounter (statuses as of 08/30/2024) Resolved Problems Problem Noted Date Diagnosed Date Resolved Date Chronic kidney disease, stage 3b 08/30/2023 08/22/2024 Overview: Per CKD protocol Chronic renal impairment, stage 3b 08/05/2023 09/02/2023 Chronic renal insufficiency, stage III (moderate) 07/07/2019 09/02/2023 Overview: Per CKD protocol documented as of this encounter (statuses as of 08/30/2024) Immunizations Name Administration Dates Next Due COVID-19 [...] pt is now a resident of [facility]. Faxed completed form along with recent OFV notes per Dr. Hatfield to [phone]. Copy placed in scanning/My Black folder. documented [...] this encounter Medical Devices Implanted Type Area Napkin Machine Operator Device Identifier Shelf Expiration Date Model / Serial / Lot Stent Viabahn [id number] 135cm - [id number] Implanted:06/19 by Francisca Pride MD at OR [facility] [place] (Quantity not on file) [employer] [id number] 12/06/2021 [id number] / [id number] / [id number] Graft Stent Viab 7mmx7.5cm - [id number] Implanted:06/19 by Francisca Pride MD at OR [facility] [place] (Quantity not on file) [employer] [id number] 01/26/2022 [id number] / [id number] / [id number] documented as of this encounter Advance Directives Documents on File Type Date Recorded Patient Learning Disabilities Specialist Expl anation Advance Directives and Living Will 03/27/2014 LIVING WILL Power of Nursing Staff Development Coordinator 03/27/2014 POWER OF A TTORNEY DURABLE HEALTH CARE POA * Full Code (Latest Code Status on File) Date Activated Date Inactivated Comments 07/07/2019 11:09 AM 07/08/2019 2:52 PM This orde r reflects the patients wishes and were consensually agreed upon. Care Teams Division Director Relationship Specialty Start Date End Date Sunny Hatfield DO [address] [place] [address] PCP - General Family Medicine 08/05/23 documented as of this encounter
--- OUTSIDE RECORDS SUMMARY | 2024-09-21 07:44 | External Medical Summary | Summary of Care ---
Author Name Unknown Organization [facility] Address [address] [place] [address] Phone [phone] Care Team Providers Care Grades 9 Thru 12 Visiting Teacher Name Role Phone Sunny Hatfield Primary Care Provider Encounter Details Date Type Department Care Team (Latest Contact Info) Description 07/16/2024 5:55 AM EST - 07/16/2024 11:59 PM EST Hospital Encounter Radiology Film File [address] [place] [address] Arrived Discharge Disposition: Home - Self Care Allergies [...] 08/01/2024 10:00 AM EST Office Visit Cardiology, [facility] [address] [place] [address] Prasanna Ruiz, DO [address] [place] [address] 08/08/2024 1:00 PM EST Office Visit Family Practice [facility] [address] [place] [address] Sunny Hatfield, DO [address] [place] [address] Health Maintenance Due Date Last Done Comments [...] this encounter Medical Devices Implanted Type Area Engine Cowling Installer Device Identifier Shelf Expiration Date Model / Serial / Lot Stent Viabahn [id number] 135cm - [id number] Implanted:06/19 by Francisca Pride MD at OR [facility] [place] (Quantity not on file) [employer] [id number] 12/06/2021 [id number] / [id number] / [id number] Graft Stent Viab 7mmx7.5cm - [id number] Implanted:06/19 by Francisca Pride MD at OR [facility] [place] (Quantity not on file) [employer] [id number] 01/26/2022 [id number] / [id number] / [id number] documented as of this encounter Procedures Procedure Name Priority Date/Time Associated Diagnosis Comments RADIOLOGY EXAM - GENERAL RAD (IMAGES ONLY,NO REPORT) Routine 07/16/2024 5:55 AM EST documented in this encounter Results * RADIOLOGY EXAM - GENERAL RAD (IMAGES ONLY,NO REPORT) (07/16/2024 5:55 AM EST) 07/16/2024 5:53 AM EST Narrative Scheduling, Silent - 07/17/2024 4:24 PM EST This is an imaging study not interpreted or resulted by a [facility] or [facility] contracted radiologist. us Jorgito Moncada MD RADIOLOGY (RAD GENERAL) Final Result documented in this encounter Advance Directives Documents on File Type Date Recorded Patient Medical Education Coordinator Expl anation Advance Directives and Living Will 03/27/2014 LIVING WILL Power of Pastry Cook Apprentice 03/27/2014 POWER OF A TTORNEY DURABLE HEALTH CARE POA * Full Code (Latest Code Status on File) Date Activated Date Inactivated Comments 07/07/2019 11:09 AM 07/08/2019 2:52 PM This orde r reflects the patients wishes and were consensually agreed upon. Care Teams Grades 9 Thru 12 Visiting Teacher Relationship Specialty Start Date End Date Sunny Hatfield DO [address] [place] [address] PCP - General Family Medicine 08/05/23 documented as of this encounter
--- OUTSIDE RECORDS SUMMARY | 2024-09-21 07:44 | External Medical Summary | Summary of Care ---
Author Name Unknown Organization [facility] Address [address] [facility] [place] [address] Phone [phone] Care Team Providers Care Multi Mission Helicopter Aircrewman Name Role Phone Sunny Hatfield Primary Care Provider Encounter Details Date Type Department Care Team (Late st Contact Info) Description 07/11/2024 Orders Only Hematology/Oncology [facility] [place] [address] [facility] [place] [address] Jorgito Moncada MD [address] [place] [address] Allergies Active Allergy Reactions Criticality Noted Date Comments Ciprofloxacin Nausea/vomiting 06/30/2012 Iodinated Contrast Media 01/31/2020 IVP DYE kidney issues documented as of this encounter (statuses as of 07/17/2024) Medications nitroglycerin (NITROSTAT) 0.4 MG SUBL 2 [...] as of this encounter (statuses as of 07/17/2024) Active Problems Problem Noted Date Diagnosed Date [...] as of this encounter (statuses as of 07/17/2024) Resolved Problems Problem Noted Date Diagnosed Date Resolved Date Chronic renal impairment, stage 3b 08/05/2023 09/02/2023 Chronic renal insufficiency, stage III (moderate) 07/07/2019 09/02/2023 Overview: Per CKD protocol documented as of this encounter (statuses as of 07/17/2024) Immunizations Name Administration Dates Next Due COVID-19 [...] Sher Triana RN documented in this encounter Plan of Treatment Upcoming Encounters Date Type Department Care Team (Late st Contact Info) Description 07/20/2024 1:15 PM EST Office Visit Hematology/Oncology [facility] [address] [facility] [place] [address] Jorgito Moncada MD [address] [facility] [place] [address] 08/01/2024 10:00 AM EST Office Visit Cardiology, [facility] [address] [place] [address] Prasanna Ruiz, DO [address] [place] [address] 08/08/2024 1:00 PM EST Office Visit Family Practice [facility] [address] [place] [address] Sunny Hatfield, DO [address] [place] [address] Health Maintenance Due Date Last Done Comments [...] this encounter Medical Devices Implanted Type Area Rail Maintenance Worker Device Identifier Shelf Expiration Date Model / Serial / Lot Stent Viabahn [id number] 135cm - [id number] Implanted:06/19 by Francisca Pride MD at OR [facility] [place] (Quantity not on file) [employer] [id number] 12/06/2021 [id number] / [id number] / [id number] Graft Stent Viab 7mmx7.5cm - [id number] Implanted:06/19 by Francisca Pride MD at OR [facility] (Quantity not on file) [employer] [id number] 01/26/2022 [id number] / [id number] / [id number] documented as of this encounter Procedures Procedure [...] study not interpreted or resulted by a [facility] or [email or web address] contracted radiologist. us Jorgito Moncada MD RAD ULTRASOUND Final Result documented in this encounter Advance Directives Documents on File Type Date Recorded Patient Stained Glass Joiner Expl anation Advance Directives and Living Will 03/27/2014 LIVING WILL Power of Heat Curer 03/27/2014 POWER OF A TTORNEY DURABLE HEALTH CARE POA * Full Code (Latest Code Status on File) Date Activated Date Inactivated Comments 07/07/2019 11:09 AM 07/08/2019 2:52 PM This orde r reflects the patients wishes and were consensually agreed upon. Care Teams Multi Mission Helicopter Aircrewman Relationship Specialty Start Date End Date Sunny Hatfield DO [address] [place] [address] PCP - General Family Medicine 08/05/23 documented as of this encounter
--- OUTSIDE RECORDS SUMMARY | 2024-09-21 07:44 | External Medical Summary | Summary of Care ---
Author Name Unknown Organization [facility] Address [address] [facility] [place] [address] Phone [phone] Care Team Providers Care Crm Specialist Name Role Phone Sunny Hatfield Primary Care Provider Encounter Details Date Type Department Care Team (Late st Contact Info) Description 07/13/2024 Orders Only Hematology/Oncology [facility] [place] [address] [facility] [place] [address] Jorgito Moncada MD [address] [place] [address] Allergies Active Allergy Reactions Criticality Noted Date [...] 07/20/2024 1:15 PM EST Office Visit Hematology/Oncology [facility] [address] [facility] [place] [address] Jorgito Moncada MD [address] [facility] [place] [address] 08/01/2024 10:00 AM EST Office Visit Cardiology, [facility] [address] [place] [address] Prasanna Ruiz, DO [address] [place] [address] 08/08/2024 1:00 PM EST Office Visit Family Practice [facility] [address] [place] [address] Sunny Hatfield, DO [address] [place] [address] Health Maintenance Due Date Last Done Comments [...] this encounter Medical Devices Implanted Type Area Deal Architect Device Identifier Shelf Expiration Date Model / Serial / Lot Stent Viabahn [id number] 135cm - [id number] Implanted:06/19 by Francisca Pride MD at OR [facility] [place] (Quantity not on file) [employer] [id number] 12/06/2021 [id number] / [id number] / [id number] Graft Stent Viab 7mmx7.5cm - [id number] Implanted:06/19 by Francisca Pride MD at OR [facility] [place] (Quantity not on file) [employer] [id number] 01/26/2022 [id number] / [id number] / [id number] documented as of this encounter Procedures Procedure [...] interpreted or resulted by a [facility] or [facility] contracted radiologist. us Jorgito Moncada MD RAD NUCLEAR MED Final Result documented in this encounter Advance Directives Documents on File Type Date Recorded Patient Wire Stockkeeper Expl anation Advance Directives and Living Will 03/27/2014 LIVING WILL Power of Metal Spraying Machine Operator 03/27/2014 POWER OF A TTORNEY DURABLE HEALTH CARE POA * Full Code (Latest Code Status on File) Date Activated Date Inactivated Comments 07/07/2019 11:09 AM 07/08/2019 2:52 PM This orde r reflects the patients wishes and were consensually agreed upon. Care Teams Crm Specialist Relationship Specialty Start Date End Date Sunny Hatfield DO [address] [place] [address] PCP - General Family Medicine 08/05/23 documented as of this encounter
--- OUTSIDE RECORDS SUMMARY | 2024-09-21 07:44 | External Medical Summary | Summary of Care ---
Author Name Unknown Organization [facility] Address [address] [facility] [place] [address] Phone [phone] Care Team Providers Care Survey Manager Name Role Phone Sunny Hatfield Primary Care Provider Encounter Details Date Type Department Care Team (Late st Contact Info) Description 07/16/2024 Orders Only Hematology/Oncology [facility] [place] [address] [facility] [place] [address] Jorgito Moncada MD [address] [place] [address] Allergies Active Allergy Reactions Criticality Noted Date [...] 07/20/2024 1:15 PM EST Office Visit Hematology/Oncology [facility] [address] [facility] [place] [address] Jorgito Moncada MD [address] [facility] [place] [address] 08/01/2024 10:00 AM EST Office Visit Cardiology, [facility] [address] [place] [address] Prasanna Ruiz, DO [address] [place] [address] 08/08/2024 1:00 PM EST Office Visit Family Practice [facility] [address] [place] [address] Sunny Hatfield, DO [address] [place] [address] Health Maintenance Due Date Last Done Comments [...] this encounter Medical Devices Implanted Type Area Mig Tig Welder Device Identifier Shelf Expiration Date Model / Serial / Lot Stent Viabahn [id number] 135cm - [id number] Implanted:06/19 by Francisca Pride MD at OR [facility] (Quantity not on file) [employer] [id number] 12/06/2021 [id number] / [id number] / [id number] Graft Stent Viab 7mmx7.5cm - [id number] Implanted:06/19 by Francisca Pride MD at OR [facility] (Quantity not on file) [employer] [id number] 01/26/2022 [id number] / [id number] / [id number] documented as of this encounter Procedures Procedure [...] interpreted or resulted by a [facility] or [facility] contracted radiologist. us Jorgito Moncada MD RADIOLOGY (RAD GENERAL) Final Result documented in this encounter Advance Directives Documents on File Type Date Recorded Patient Nematologist Expl anation Advance Directives and Living Will 03/27/2014 LIVING WILL Power of Freight Flow Sales Leader 03/27/2014 POWER OF A TTORNEY DURABLE HEALTH CARE POA * Full Code (Latest Code Status on File) Date Activated Date Inactivated Comments 07/07/2019 11:09 AM 07/08/2019 2:52 PM This orde r reflects the patients wishes and were consensually agreed upon. Care Teams Survey Manager Relationship Specialty Start Date End Date Sunny Hatfield DO [address] [place] [address] PCP - General Family Medicine 08/05/23 documented as of this encounter
--- OUTSIDE RECORDS SUMMARY | 2024-09-21 07:44 | External Medical Summary | Summary of Care ---
Author Name Unknown Organization [facility] Address [address] [facility] [place] [address] Phone [phone] Care Team Providers Care Kapok And Cotton Machine Operator Name Role Phone Sunny Hatfield Primary Care Provider Encounter Details Date Type Department Care Team (Late st Contact Info) Description 07/13/2024 Orders Only Hematology/Oncology [facility] [place] [address] [facility] [place] [address] Jorgito Moncada MD [address] [place] [address] Allergies Active Allergy Reactions Criticality Noted Date [...] 1:15 PM EST Office Visit Hematology/Oncology [facility] [address] [facility] [place] [address] Jorgito Moncada MD [address] [facility] [place] [address] 08/01/2024 10:00 AM EST Office Visit Cardiology, [facility] [address] [place] [address] Prasanna Ruiz, DO [address] [place] [address] 08/08/2024 1:00 PM EST Office Visit Family Practice [facility] [address] [place] [address] Sunny Hatfield, DO [address] [place] [address] Health Maintenance Due Date Last Done Comments [...] this encounter Medical Devices Implanted Type Area Senior Office Support Assistant Sosa Device Identifier Shelf Expiration Date Model / Serial / Lot Stent Viabahn [id number] 135cm - [id number] Implanted:06/19 by Francisca Pride MD at OR [facility] (Quantity not on file) [employer] [id number] 12/06/2021 [id number] / [id number] / [id number] Graft Stent Viab 7mmx7.5cm - [id number] Implanted:06/19 by Francisca Pride MD at OR [facility] (Quantity not on file) [employer] [id number] 01/26/2022 [id number] / [id number] / [id number] documented as of this encounter Procedures Procedure [...] interpreted or resulted by a [facility] or [facility] contracted radiologist. us Jorgito Moncada MD RAD CT Final Result documented in this encounter Advance Directives Documents on File Type Date Recorded Patient Florist'S Decorator Expl anation Advance Directives and Living Will 03/27/2014 LIVING WILL Power of Digital Archivist 03/27/2014 POWER OF A TTORNEY DURABLE HEALTH CARE POA * Full Code (Latest Code Status on File) Date Activated Date Inactivated Comments 07/07/2019 11:09 AM 07/08/2019 2:52 PM This orde r reflects the patients wishes and were consensually agreed upon. Care Teams Kapok And Cotton Machine Operator Relationship Specialty Start Date End Date Sunny Hatfield DO [address] [place] [address] PCP - General Family Medicine 08/05/23 documented as of this encounter
--- OUTSIDE RECORDS SUMMARY | 2024-09-21 07:44 | External Medical Summary | Summary of Care ---
Author Name Unknown Organization [facility] Address [address] [facility] [place] [address] Phone [phone] Care Team Providers Care Cash Person Name Role Phone Sunny Hatfield Primary Care Provider Encounter Details Date Type Department Care Team (Late st Contact Info) Description 07/13/2024 Orders Only Hematology/Oncology [facility] [place] [address] [facility] [place] [address] Jorgito Moncada MD [address] [place] [address] Allergies Active Allergy Reactions Criticality Noted Date [...] Assessment Author No 07/07/2019 2:45 PM Sher Dhalwial RN * Do you have serious difficulty [...] 07/20/2024 1:15 PM EST Office Visit Hematology/Oncology [facility] [address] [facility] [place] [address] Jorgito Moncada MD [address] [facility] [place] [address] 08/01/2024 10:00 AM EST Office Visit Cardiology, [facility] [address] [place] [address] Prasanna Ruiz, DO [address] [place] [address] 08/08/2024 1:00 PM EST Office Visit Family Practice [facility] [address] [place] [address] Sunny Hatfield, DO [address] [place] [address] Health Maintenance Due Date Last Done Comments [...] this encounter Medical Devices Implanted Type Area Motor Mechanic Device Identifier Shelf Expiration Date Model / Serial / Lot Stent Viabahn [id number] 135cm - [id number] Implanted:06/19 by Francisca Pride MD at OR [facility] (Quantity not on file) [employer] [id number] 12/06/2021 [id number] / [id number] / [id number] Graft Stent Viab 7mmx7.5cm - [id number] Implanted:06/19 by Francisca Pride MD at OR [facility] (Quantity not on file) [employer] [id number] 01/26/2022 [id number] / [id number] / [id number] documented as of this encounter Procedures Procedure [...] interpreted or resulted by a [facility] or [employer] contracted radiologist. us Jorgito Moncada MD RAD ULTRASOUND Final Result documented in this encounter Advance Directives Documents on File Type Date Recorded Patient Clinical Rehab Specialist Expl anation Advance Directives and Living Will 03/27/2014 LIVING WILL Power of Home Inspector 03/27/2014 POWER OF A TTORNEY DURABLE HEALTH CARE POA * Full Code (Latest Code Status on File) Date Activated Date Inactivated Comments 07/07/2019 11:09 AM 07/08/2019 2:52 PM This orde r reflects the patients wishes and were consensually agreed upon. Care Teams Cash Person Relationship Specialty Start Date End Date Sunny Hatfield DO [address] [place] [address] PCP - General Family Medicine 08/05/23 documented as of this encounter
--- OUTSIDE RECORDS SUMMARY | 2024-09-21 07:45 | External Medical Summary | Summary of Care ---
Author Name Unknown Organization [facility] Address [address] [facility] [place] [address] Phone [phone] Care Team Providers Care Cad Engineer Name Role Phone Sunny Hatfieldnoemy Primary Care Provider Encounter Details Date Type Department Care Team (Late st Contact Info) Description 07/14/2024 Orders Only Nephrology, [facility] [address] [place] [address] Daniela Romo MD 200 [facility] [place] [address] Allergies Active Allergy Reactions Criticality Noted Date Comments Ciprofloxacin Nausea/vomiting 06/30/2012 Iodinated Contrast Media 01/31/2020 IVP DYE kidney issues documented as of this encounter (statuses as of 07/14/2024) Medications nitroglycerin (NITROSTAT) 0.4 MG SUBL 2 [...] as of this encounter (statuses as of 07/14/2024) Active Problems Problem Noted Date Diagnosed Date [...] as of this encounter (statuses as of 07/14/2024) Resolved Problems Problem Noted Date Diagnosed Date Resolved Date Chronic renal impairment, stage 3b 08/05/2023 09/02/2023 Chronic renal insufficiency, stage III (moderate) 07/07/2019 09/02/2023 Overview: Per CKD protocol documented as of this encounter (statuses as of 07/14/2024) Immunizations Name Administration Dates Next Due COVID-19 [...] PM EST Office Visit Hematology/Oncology [facility] [address] [facility] [place] [phone] Jorgito Moncada MD 200 [facility] [place] [address] 08/01/2024 10:00 AM EST Office Visit Cardiology, [facility] [address] [place] [address] Prasanna Ruiz, DO [address] [place] [address] 08/08/2024 1:00 PM EST Office Visit Family Practice [facility] [address] [place] [address] Sunny Hatfield, DO [address] [place] [address] Health Maintenance Due Date Last Done Comments [...] this encounter Medical Devices Implanted Type Area General Distillery Worker Device Identifier Shelf Expiration Date Model / Serial / Lot Stent Viabahn [id number] 135cm - [id number] Implanted:06/19 by Francisca Pride MD at OR [facility] (Quantity not on file) [employer] [id number] 12/06/2021 [id number] / [id number] / [id number] Graft Stent Viab 7mmx7.5cm - [id number] Implanted:06/19 by Francisca Pride MD at OR [facility] (Quantity not on file) [employer] [id number] 01/26/2022 [id number] / [id number] / [id number] documented as of this encounter Procedures Procedure Name Priority Date/Time Associated Diagnosis Comments XR CHEST 1 VIEW Routine 07/13/2024 documented in this encounter Results * XR CHEST 1 VIEW (07/13/2024) Anatomical Region Laterality Modality Chest Other 07/13/2024 us Daniela Romo MD RADIOLOGY (RAD GENERAL) F inal Result documented in this encounter Advance Directives Documents on File Type Date Recorded Patient Shredder Picker Expl anation Advance Directives and Living Will 03/27/2014 LIVING WILL Power of Sales Route Driver Helper 03/27/2014 POWER OF A TTORNEY DURABLE HEALTH CARE POA * Full Code (Latest Code Status on File) Date Activated Date Inactivated Comments 07/07/2019 11:09 AM 07/08/2019 2:52 PM This orde r reflects the patients wishes and were consensually agreed upon. Care Teams Cad Engineer Relationship Specialty Start Date End Date Sunny Hatfield DO [address] [place] [address] PCP - General Family Medicine 08/05/23 documented as of this encounter
--- OUTSIDE RECORDS SUMMARY | 2024-09-21 07:45 | External Medical Summary | Summary of Care ---
Author Name Unknown Organization [facility] Address [address] [facility] [address] Phone [phone] Care Team Providers Care Marketing Administrator Name Role Phone Sunny Hatfield Primary Care Provider Encounter Details Date Type Department Care Team (Late st Contact Info) Description 07/11/2024 Result Scan Unspecified Department Jim Weldon MD [address] [place] [address] <No scans attached> Allergies Active Allergy Reactions Criticality Noted Date Comments Ciprofloxacin Nausea/vomiting 06/30/2012 Iodinated Contrast Media 01/31/2020 IVP DYE kidney issues documented as of this encounter (statuses as of 07/13/2024) Medications nitroglycerin (NITROSTAT) 0.4 MG SUBL 2 [...] as of this encounter (statuses as of 07/13/2024) Active Problems Problem Noted Date Diagnosed Date [...] as of this encounter (statuses as of 07/13/2024) Resolved Problems Problem Noted Date Diagnosed Date Resolved Date Chronic renal impairment, stage 3b 08/05/2023 09/02/2023 Chronic renal insufficiency, stage III (moderate) 07/07/2019 09/02/2023 Overview: Per CKD protocol documented as of this encounter (statuses as of 07/13/2024) Immunizations Name Administration Dates Next Due COVID-19 [...] 07/20/2024 1:15 PM EST Office Visit Hematology/Oncology [facility] [address] [facility] [place] [phone] Jorgito Moncada MD [address] [facility] [place] [address] 08/01/2024 10:00 AM EST Office Visit Cardiology, [facility] [address] [place] [address] Prasanna Ruiz, DO [address] [place] [address] 08/08/2024 1:00 PM EST Office Visit Family Practice [facility] [address] [place] [address] Sunny Hatfield, DO [address] [place] [address] Health Maintenance Due Date Last Done Comments [...] this encounter Medical Devices Implanted Type Area Welder Device Identifier Shelf Expiration Date Model / Serial / Lot Stent Viabahn [id number] 135cm - [id number] Implanted:06/19 by Francisca Pride MD at OR [facility] (Quantity not on file) [employer] [id number] 12/06/2021 [id number] / [id number] / [id number] Graft Stent Viab 7mmx7.5cm - [id number] Implanted:06/19 by Francisca Pride MD at OR [facility] (Quantity not on file) [employer] [id number] 01/26/2022 [id number] / [id number] / [id number] documented as of this encounter Procedures Procedure Name Priority Date/Time Associated Diagnosis Comments RADIOLOGY SCANNED RESULT 07/11/2024 documented in this encounter Results * RADIOLOGY SCANNED RESULT (07/11/2024) 07/11/2024 Jim Weldon MD [facility] Final Result documented in this encounter Advance Directives Documents on File Type Date Recorded Patient Print Room Worker Expl anation Advance Directives and Living Will 03/27/2014 LIVING WILL Power of Customer Care Associate 03/27/2014 POWER OF A TTORNEY DURABLE HEALTH CARE POA * Full Code (Latest Code Status on File) Date Activated Date Inactivated Comments 07/07/2019 11:09 AM 07/08/2019 2:52 PM This orde r reflects the patients wishes and were consensually agreed upon. Care Teams Marketing Administrator Relationship Specialty Start Date End Date Sunny Hatfield DO [address] [place] [address] PCP - General Family Medicine 08/05/23 documented as of this encounter
--- NOTE | 2024-09-21 07:53 | Electrocardiogram Report ---
Test Reason : Blood Pressure : */* mmHG Vent. Rate : 56 BPM Atrial Rate : 56 BPM P-R Int : 150 ms QRS Dur : 92 ms QT Int : 478 ms P-R-T Axes : -15 85 29 degrees QTcB Int : 461 ms Sinus bradycardia Otherwise normal ECG When compared with ECG of 20-Sep-2024 19:59, Vent. rate has decreased by 37 bpm Confirmed by Delano Harrell ([id number]) on 09/21/2024 7:53:36 AM Referred By: REFERRED SELF Confirmed By: Delano Harrell
[2024-09-21] MEDS: FINASTERIDE 5 MG TAB PO SCH (07:59)
[2024-09-21] MEDS ORDERED: carvediloL 25 MG TAB PO SCH (08:00)
[2024-09-21] MEDS: PANTOprazole 40 MG TAB PO SCH (08:01)
[2024-09-21] MEDS: FLUTICASONE/VILANTEROL 200/25MCG 14 PUFFS/INHALER INH SCH (08:01)
--- NOTE | 2024-09-21 08:13 | Electrocardiogram Report ---
Test Reason : Blood Pressure : */* mmHG Vent. Rate : 107 BPM Atrial Rate : * BPM P-R Int : * ms QRS Dur : 92 ms QT Int : 378 ms P-R-T Axes : * 99 17 degrees QTcB Int : 504 ms Atrial fibrillation with rapid ventricular response Rightward axis Left ventricular hypertrophy Diffuse Nonspecific ST and T wave abnormality Abnormal ECG When compared with ECG of 20-Sep-2024 16:10, No significant change Confirmed by Delano Harrell ([id number]) on 09/21/2024 8:12:41 AM Referred By: REFERRED SELF Confirmed By: Delano Harrell
--- NOTE | 2024-09-21 08:15 | Electrocardiogram Report ---
Test Reason : Blood Pressure : */* mmHG Vent. Rate : 93 BPM Atrial Rate : 93 BPM P-R Int : 190 ms QRS Dur : 100 ms QT Int : 404 ms P-R-T Axes : 110 88 -6 degrees QTcB Int : 502 ms Normal sinus rhythm Left ventricular hypertrophy with repolarization abnormality Prolonged QT Abnormal ECG When compared with ECG of 20-Sep-2024 17:02, Sinus rhythm has replaced Atrial fibrillation Confirmed by Delano Harrell ([id number]) on 09/21/2024 8:14:53 AM Referred By: REFERRED SELF Confirmed By: Delano Harrell
--- NOTE | 2024-09-21 08:29 | Hospitalist Progress Note ---
Date of Service September 21, 2024 Assessment & Plan (1) Atrial fibrillation with rapid ventricular response: (2) Chest pain: (3) BPH with urinary obstruction: (4) Hypertension, uncontrolled: (5) ESRD (end stage renal disease) on dialysis: (6) CHF (congestive heart failure): (7) Anemia: Plan This is an 89yo M with a complex PMH of CAD (s/p multiple stents and CABG), PAD s/p bilateral common iliac stents, TIA, bilateral carotid stenosis, ESRD on HD MWF, atrial fibrillation diagnosed in Jul 2024, systolic and diastolic CHF, COPD, GERD and other medical problems who presents with intermittent chest pain x 2 weeks and admitted for atrial fibrillation with RVR Patient in NSR at this time. Medications resumed as it was reported that patient likely without 2 days of BB. Continue to montior on tele Hgb 9.3, recommended previously that transfusion level <10, will repeat HH and if < 10 will transfuse #A fib with RVR #c/f tachybrady syndrome new diagnosis as of 07/21 Rate improved in ER after 5mg IV Lopressor from 110s now 100 In setting of a few mised doses of Carvedilol 25mg BID in the past 2 days in assisted living facility Replaced K to keep >4 Magnesium, TSH added to labs Increase Carvedilol to 37.5mg BID PRN IV Lopressor for HR > 110 Monitor on telemetry Routine cardiology consult discontinue heparin Cardiology following: may require pacemaker implantation in the future if additional AV xiomara blocking agents/antiarrhythmic therapy such as amiodarone is needed to maintain sinus rhythm. Recommendation reviewed: * Continue carvedilol 37.5 mg twice daily. * Restart low-dose aspirin and clopidogrel. * Continue other antihypertensive medications including hydralazine, amlodipine, and isosorbide dinitrate. * Hold parameters for isosorbide need to be adjusted at time of discharge for assisted-living facility. Apparently medication was being held for diastolic blood pressure less than 80. * Recommend holding isosorbide for SBP less than 120mmHg, and diastolic blood pressure less than 60mmHg as outpatient. #obstructive CAD s/p CABG 1996, CHARMAINE 2018 #Chest pain #Elevated troponin, likely multifactorial iso rvr and known CAD History of complex CAD history including multiple stents and CABG Intermittent pain x 2 weeks, more severe today following dialysis Pain resolved after 1 dose of nitro en route to hospital Received 325 mg aspirin Continue statin, carvedilol, isosorbide 5 mg 4 times daily Initial troponin 24 in setting of ESRD -trend overnight Monitor on telemetry Cardiology consulted #PAD s/p bilateral common iliac stents resume asa and plavix for now as above #ESRD on HD MWF Had dialysis today Routine nephro consult Continue Velphoro TIDM #Anemia of chronic disease Has been receiving IV iron infusions as outpatient Per recent cards communication, recommend hgb >10 given CAD repeat hgb #Chronic heart failure with preserved EF Appears euvolemic following HD today CXR with small right pleural effusion, appears decreased DVT Ppx: IV heparin Code status: DNR/DNI, discussed with patient PCP: Liu Dispo: admitted to PCU Admission and Anticipated Discharge Date Admission Date: September 20, 2024 Subjective Reports some nausea but greta helped notes that he has not had a bowel movement in many days, agreeable to suppository Physical Exam Constitutional: WD/WN, vitals as above Respiratory: normal respiratory effort, lungs clear to auscultation Cardiovascular: RRR, no murmur, no edema Results & Data Results & Data Vital Signs (Past 12 Hours) Vital Signs Temp Pulse Pulse Resp BP Pulse Ox O2 Del Method 09/21/24 07:58 36.3 C L 58 L 174/80 H 95 Nasal Cannula 09/21/24 02:39 36.8 C 57 L 20 151/69 H 95 Nasal Cannula 09/20/24 23:16 111 H 09/20/24 23:16 Nasal Cannula 09/20/24 22:55 36.6 C 110 H 24 153/102 H 92 Nasal Cannula 09/20/24 22:35 106 H 18 137/96 93 Nasal Cannula 09/20/24 21:00 Nasal Cannula 09/20/24 20:45 97 H 09/20/24 20:35 98 H 128/80 94 Nasal Cannula O2 Flow Rate 09/21/24 07:58 09/21/24 02:39 3 09/20/24 23:16 09/20/24 23:16 3 09/20/24 22:55 2 09/20/24 22:35 2 09/20/24 21:00 2 09/20/24 20:45 09/20/24 20:35 2 Laboratory Results Short CBC 09/20/24 Range/Units 16:10 WBC 5.04 (4.8-10.8) K/ul Hgb 10.3 L (14.0-18.0) g/dl Hct 30.3 L (42.0-52.0) % Plt Count 206 (130-400) K/uL BMP 09/20/24 16:10 Sodium 137 Potassium 3.6 Chloride 95 L Carbon Dioxide 37 H BUN 8 Creatinine 1.51 H Glucose 113 H Calcium 9.1 Liver Function 09/20/24 Range/Units 16:10 Total Bilirubin 0.5 (0.2-1.0) mg/dl AST 12 L (13-39) U/L ALT 10 (7-52) U/L Alkaline Phosphatase 57 (34-104) U/L Albumin 4.2 (3.4-5.0) gm/dl Medications Administered Home Medications Medication Instructions Recorded Confirmed Last Taken acetaminophen 325 mg tablet 325 mg PO QID PRN Pain 09/16/20 09/20/24 09/17/20 (Tylenol) albuterol 90 mcg/actuation aerosol 90 mcg inhalation UD PRN sob 09/16/20 09/20/24 07/09/24 inhaler amlodipine 5 mg tablet (Norvasc) 5 mg PO BID 09/16/20 09/20/24 07/07/24 aspirin 81 mg tablet,delayed 81 mg PO BID 09/16/20 09/20/24 07/07/24 release clopidogrel 75 mg tablet (Plavix) 75 mg PO QAM 09/16/20 09/20/24 07/07/24 finasteride 5 mg tablet 5 mg PO QAM 09/16/20 09/20/24 07/07/24 fluticasone 250 mcg-salmeterol 50 1 inh inhalation BID 09/16/20 09/20/24 Unknown mcg/dose blistr powdr for inhalation (Advair Diskus) nitroglycerin 0.4 mg sublingual 0.4 mg sublingual UD PRN Chest Pain 09/16/20 09/20/24 07/09/24 tablet (Nitrostat) pantoprazole 40 mg tablet,delayed 40 mg PO QAM 09/16/20 09/20/24 07/07/24 release (Protonix) rosuvastatin 20 mg tablet (Crestor) 20 mg PO QPM 09/16/20 09/20/24 07/07/24 tamsulosin 0.4 mg capsule 0.4 mg PO QPM 09/16/20 09/20/24 07/07/24 hydralazine 10 mg tablet 10 mg PO TID 07/09/24 09/20/24 07/07/24 isosorbide dinitrate 5 mg tablet 5 mg PO TID 07/09/24 09/20/24 07/07/24 carvedilol 25 mg tablet 25 mg PO BIDM #60 tabs 07/27/24 09/20/24 Unknown mirtazapine 30 mg tablet 30 mg PO HS #30 tabs 07/27/24 09/20/24 Unknown docusate sodium 100 mg tablet 100 mg PO HS 09/20/24 09/20/24 Unknown sucroferric oxyhydroxide 500 mg 500 mg PO TIDM 09/20/24 09/20/24 Unknown chewable tablet (Velphoro) Active Medications Generic Name Dose Route Start Last Admin Trade Name Freq PRN Reason Stop Dose Admin Amlodipine Besylate 5 mg 09/20/24 21:00 09/21/24 08:00 Amlodipine Besylate 5 Mg Tab PO 10/20/24 20:59 5 mg BID GERALDINE Administration Docusate Sodium 100 mg 09/20/24 21:00 09/20/24 23:03 Docusate Sodium 100 Mg Cap PO 10/20/24 20:59 100 mg HS GERALDINE Administration Finasteride 5 mg 09/21/24 09:00 09/21/24 07:59 Finasteride 5 Mg Tab PO 10/21/24 08:59 5 mg QAM GERALDINE Administration Fluticasone/Vilanterol 1 puffs 09/21/24 09:00 09/21/24 08:01 Fluticasone/Vilanterol 200/25mcg 14 Puffs/Inhaler INH 10/21/24 08:59 1 puffs DAILY GERALDINE Administration Hydralazine HCl 10 mg 09/20/24 21:00 09/21/24 08:00 Hydralazine 10 Mg Tab PO 10/20/24 20:59 10 mg TID GERALDINE Administration Heparin Sodium/Dextrose 25,000 units in 500 mls @ 18 mls/hr 09/20/24 18:45 09/21/24 02:37 Heparin 60476 Unit/500 Ml D5w IV 10/20/24 18:44 900 units/hr .Q24H GERALDINE 18 mls/hr Titration Protocol 900 UNITS/HR Isosorbide Dinitrate 5 mg 09/20/24 21:30 09/21/24 07:59 Isosorbide Dinitrate 5 Mg Tab PO 10/20/24 21:29 5 mg TID@0700,1200,1700 GERALDINE Administration Mirtazapine 30 mg 09/20/24 21:00 09/20/24 23:34 Mirtazapine Tab 15 Mg Tab PO 10/20/24 20:59 Not Given HS GERALDINE Miscellaneous 1 each 09/21/24 00:00 09/21/24 07:59 Order Awaiting Action - Sucroferric Oxyhydroxide [Velphoro] 500 Mg Tablet,Chewable N/A 10/21/24 00:00 Not Given QS GERALDINE Ondansetron HCl 4 mg 09/20/24 20:08 09/21/24 04:54 Ondansetron Inj 2 Mg/Ml 2 Ml Vial IV 10/20/24 20:07 4 mg Q6H PRN Administration Nausea Pantoprazole Sodium 40 mg 09/21/24 09:00 09/21/24 08:01 Pantoprazole 40 Mg Tab PO 10/21/24 08:59 40 mg QAM GERALDINE Administration Rosuvastatin Calcium 20 mg 09/20/24 21:00 09/20/24 23:01 Rosuvastatin Calcium 20 Mg Tab PO 10/20/24 20:59 20 mg QPM GERALDINE Administration Tamsulosin HCl 0.4 mg 09/20/24 21:00 09/20/24 23:34 Tamsulosin Hcl 0.4 Mg Cap PO 10/20/24 20:59 Not Given QPM GERALDINE Tramadol HCl 25 - 50 mg 09/20/24 20:16 09/20/24 22:02 Tramadol Hcl 50 Mg Tablet PO 10/20/24 20:15 50 mg Q4H PRN Administration Pain (2) Chest pain Chest pain type: unspecified Qualified Code(s): R07.9 - Chest pain, unspecified
[2024-09-21] MEDS: carvediloL 12.5 MG TAB PO SCH (09:26)
[2024-09-21 09:30] LABS: Hematocrit (blood only) 27.8 % (42.0-52.0); Hemoglobin 9.3 g/dl (14.0-18.0); Mean Corpuscular Hemoglobin 31.6 pg (25.0-34.0); Mean Corpuscular Hgb Conc 33.5 g/dL (32.0-36.0); Mean Corpuscular Volume 94.6 fL (80.0-100.0); Mean Platelet Volume 9.7 fL (9.4-12.4); Platelet Count 198 K/uL (130-400); RDW Coefficient of Variation 15.4 % (11.5-14.5); RDW Standard Deviation 53.4 fL (36.4-46.3); Red Blood Count 2.94 M/uL (4.70-6.10); White Blood Count 5.65 K/ul (4.8-10.8)
[2024-09-21 09:47] LABS: BUN Creatinine Ratio 6.6 (10-20); Creatinine Clr Calc Pharmacy 16.2 ml/min; Magnesium 2.1 mg/dl (1.7-2.4); Potassium 4.6 mmol/L (3.5-5.1)
[2024-09-21 09:55] LABS: ANTI-Xa, UFH(UnfractionatedHep 0.51 IU/ml (0.3-0.7)
--- NOTE | 2024-09-21 10:05 | Nephrology Consultation ---
Date of Consultation September 21, 2024 Assessment & Plan (1) ESRD (end stage renal disease) on dialysis: had CKD and then started On Dialysis after ROSALBA. Gets Dialysis MWF at the [facility]. No E/o fluid overload currently but he is at risk with Afibb/RVR and His Cardiac History. Electrolytes are fine. Creat seems to be running lot lower than the admission in --?? some early signs of renal recovery. However this is upto his Outpt Projection Printer to figure out. However he has lost 40 lbs so lower creat could just be reflection of the Wt/Muscle loss. Planning to Do dialysis tomorrow--3.5 hrs 3k and take 2-3 kilo off. (2) Atrial fibrillation with rapid ventricular response: Associated with Chest Pain also. Complex cardiac History. Plan Time spent 48 mins History of Present Illness Reason for Consultation: ESRD on dialysis. Admitted with Chest Pain/Afibb=RVR Attending Physician: Bonny Oneil MD History of Present Illness 89/M ESRD on Dialysis--MWF. Also has CAD (s/p multiple stents and CABG), PAD s/p bilateral common iliac stents, TIA, bilateral carotid stenosis, atrial fibrillation diagnosed in Jul 2024, systolic and diastolic CHF, s/p left kidney cryoablation, COPD, GERD and other medical problems who presents with intermittent chest pain x 2 weeks. Patient was recently admitted to our service from 07/09-07/27 for worsening CKD and was started on hemodialysis with catheter placement on 07/21. During that admission, was also found to be in new onset A- fib with RVR but converted to sinus rhythm and Dr. Armenta comfortable with continuing DAPT without anticoagulation unless recurrent events. Was discharged on Coreg 25 mg twice daily. Also had abdominal pain with imaging revealing gallstones but HIDA scan was negative for acute cholecystitis and patient was deemed a poor elective surgical candidate at that time. Patient was discharged to assisted living at [facility] in [place]. Has been doing well and underwent dialysis yesterday. Upon return to facility, developed chest pain . Nitroglycerin was given en route to ED and pain subsided. Atthis time No CP or SOB. he is lot more cachectic now--says lost 40 lbs last few months ROS--As per HPI. Otherwise 12 Systems negative. Physical Exam Constitutional: well developed and well nourished; no acute distress Respiratory: normal respiratory effort; no respiratory distress and no labored breathing Auscultation: lungs clear to auscultation bilaterally; no crackles, no rales, no rhonchi and no wheezes Cardiovascular: Rate/Rhythm: regular rate and regular rhythm Heart Sounds: normal S1 and normal S2; no murmur Vessels: no JVD Extremities: no edema Gastrointestinal (Abdomen): Inspection/Auscultation: normal bowel sounds; abdomen not distended Percussion/Palpation: abdomen soft; abdomen nontender, no guarding and abdomen not rigid Neurologic: CN's II-XI intact bilaterally and moves all extremities; no focal motor deficits Allergies Allergy/AdvReac Type Severity Reaction Status Date / Time ciprofloxacin [From Cipro] AdvReac Vomiting Verified 09/19/20 10:27 Iodinated Contrast Media AdvReac Unknown Verified 09/19/20 10:27 Home Medications Medication Instructions Recorded Confirmed Type acetaminophen 325 mg tablet 325 mg PO QID PRN Pain 09/16/20 09/20/24 History (Tylenol) albuterol 90 mcg/actuation aerosol 90 mcg inhalation UD PRN sob 09/16/20 09/20/24 History inhaler amlodipine 5 mg tablet (Norvasc) 5 mg PO BID 09/16/20 09/20/24 History aspirin 81 mg tablet,delayed 81 mg PO BID 09/16/20 09/20/24 History release clopidogrel 75 mg tablet (Plavix) 75 mg PO QAM 09/16/20 09/20/24 History finasteride 5 mg tablet 5 mg PO QAM 09/16/20 09/20/24 History fluticasone 250 mcg-salmeterol 50 1 inh inhalation BID 09/16/20 09/20/24 History mcg/dose blistr powdr for inhalation (Advair Diskus) nitroglycerin 0.4 mg sublingual 0.4 mg sublingual UD PRN Chest Pain 09/16/20 09/20/24 History tablet (Nitrostat) pantoprazole 40 mg tablet,delayed 40 mg PO QAM 09/16/20 09/20/24 History release (Protonix) rosuvastatin 20 mg tablet (Crestor) 20 mg PO QPM 09/16/20 09/20/24 History tamsulosin 0.4 mg capsule 0.4 mg PO QPM 09/16/20 09/20/24 History hydralazine 10 mg tablet 10 mg PO TID 07/09/24 09/20/24 History isosorbide dinitrate 5 mg tablet 5 mg PO TID 07/09/24 09/20/24 History carvedilol 25 mg tablet 25 mg PO BIDM #60 tabs 07/27/24 09/20/24 Rx mirtazapine 30 mg tablet 30 mg PO HS #30 tabs 07/27/24 09/20/24 Rx docusate sodium 100 mg tablet 100 mg PO HS 09/20/24 09/20/24 History sucroferric oxyhydroxide 500 mg 500 mg PO TIDM 09/20/24 09/20/24 History chewable tablet (Velphoro) Patient History Medical History ESRD (end stage renal disease) on dialysis Penile edema Esophageal dysmotility Slow to wake up after anesthesia Vascular disease, peripheral BPH (benign prostatic hyperplasia) Hiatal hernia Dysphagia Belching continuous x several hours after eating/drinking GERD (gastroesophageal reflux disease) History of kidney cancer 2010 cryoablation therapy; follows with [facility] nephrology 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 Lai/Dr. Mancilla History of TIA (transient ischemic attack) 2018 History of myocardial infarction 1992 Hyperlipemia HTN (hypertension) COPD (chronic obstructive pulmonary disease) Surgical History History of tooth extraction History of vascular surgery stent LLE History of esophagogastroduodenoscopy (EGD) History of colonoscopy History of prior ablation treatment History of heart artery stent "quite a few" (2 placed 03/2019 and mult prior to) History of cardiac catheterization most recent 03/2019 at [facility] - 2 stents placed; mult caths at [facility]; mult stents (unable to recall specifics) History of coronary artery bypass graft x 3 1996 Family History Other Coronary heart disease No family history of adverse response to anesthesia Social History Smoking Status: Former smoker Second Hand Exposure: No; Do You Dip or Chew Tobacco: No; Hx Alcohol Use: No Hx Substance Use: No Preferred Language: Bengali Communication Ability: Effective [employer] Required: No Beliefs That Will Affect Care: None Current Living Situation: Spouse Feels Safe at Home: Yes Assistive Devices: Denture - Upper, Denture - Lower and Hearing Aid - Bilateral Results & Data Vital Signs (Past 12 Hours) Vital Signs Temp Pulse Pulse Resp BP Pulse Ox O2 Del Method 09/21/24 08:00 Nasal Cannula 09/21/24 07:58 36.3 C L 58 L 174/80 H 95 Nasal Cannula 09/21/24 02:39 36.8 C 57 L 20 151/69 H 95 Nasal Cannula 09/20/24 23:16 111 H 09/20/24 23:16 Nasal Cannula 09/20/24 22:55 36.6 C 110 H 24 153/102 H 92 Nasal Cannula 09/20/24 22:35 106 H 18 137/96 93 Nasal Cannula O2 Flow Rate 09/21/24 08:00 2 09/21/24 07:58 09/21/24 02:39 3 09/20/24 23:16 09/20/24 23:16 3 09/20/24 22:55 2 09/20/24 22:35 2 Laboratory Results CBC renal panel, CXR
--- NOTE | 2024-09-21 10:28 | Cardiology Consultation ---
Date of Consultation September 21, 2024 Assessment & Plan (1) Atrial fibrillation with rapid ventricular response: (2) Elevated troponin: (3) Anemia: (4) Labile hypertension: Plan 89-year-old male admitted secondary to recurrent atrial fibrillation with rapid ventricular response and angina. Mildly elevated high-sensitivity troponin secondary to demand ischemia. Atrial fibrillation precipitated by lack of beta- darci therapy for 48 hours prior to presentation. Apparently, patient ran out of beta-darci at the assisted living. He has converted to sinus rhythm and currently asymptomatic. Patient with early signs of tachy-darrel syndrome. He may require pacemaker implantation in the future if additional AV xiomara blocking agents/antiarrhythmic therapy such as amiodarone is needed to maintain sinus rhythm. Recommendations: * Continue carvedilol 37.5 mg twice daily. * IV heparin as inpatient, however, hold off on long-term anticoagulation; current event likely precipitated by beta-darci withdrawal * Restart low-dose aspirin and clopidogrel. * Continue other antihypertensive medications including hydralazine, amlodipine, and isosorbide dinitrate. * Hold parameters for isosorbide need to be adjusted at time of discharge for assisted-living facility. Apparently medication was being held for diastolic blood pressure less than 80. * Recommend holding isosorbide for SBP less than 120mmHg, and diastolic blood pressure less than 60mmHg as outpatient. * 09/22/2024 * Findings and recommendations discussed with patient's son, Eulogio via telephone I spent a total of 75 minutes on the date of service in preparation, delivery, and documentation of the care provided to this patient, excluding any time spent in the performance of separately billed services. Prasanna Ruiz DO, [facility] History of Present Illness Reason for Consultation: Chest discomfort, atrial fibrillation with rapid ventricular response Requesting Physician: Savannah Goff PA-C Attending Physician: Bonny Oneil MD History of Present Illness 89-year-old male present to the emergency department with chest discomfort and elevated heart rate. Found to be in atrial fibrillation with rapid ventricular response. Complex history of coronary disease, multiple stents and CABG, peripheral at arterial disease status post bilateral common iliac stents, TIA, bilateral carotid stenosis, labile hypertension, end-stage renal disease on hemodialysis, and chronic heart failure. Patient admits to missing carvedilol for 48 hours prior to presentation. Last evening he developed chest discomfort on the left side. He summoned his son who is an RN to evaluate him. Found patient to be tachycardic and he was brought to the ER for further evaluation. In the ER, ECG confirmed atrial fibrillation with rapid ventricular response. Received dose of carvedilol in ER, converted to sinus bradycardia last evening. He has remained sinus rhythm/sinus bradycardia overnight. No recurrent chest discomfort. Voices concern regarding need for hemodialysis treatment tomorrow. Recently hospitalized in July. Diagnosed with paroxysmal atrial fibrillation during that visit. He was initially treated with beta-darci and amiodarone, however, he suffered an episode of hypotension while IV and while on IV amiodarone. He was discontinued on beta-darci therapy only. Anticoagulation was not added at that time. Allergies Allergy/AdvReac Type Severity Reaction Status Date / Time ciprofloxacin [From Cipro] AdvReac Vomiting Verified 09/19/20 10:27 Iodinated Contrast Media AdvReac Unknown Verified 09/19/20 10:27 Home Medications Medication Instructions Recorded Confirmed Type acetaminophen 325 mg tablet 325 mg PO QID PRN Pain 09/16/20 09/20/24 History (Tylenol) albuterol 90 mcg/actuation aerosol 90 mcg inhalation UD PRN sob 09/16/20 09/20/24 History inhaler amlodipine 5 mg tablet (Norvasc) 5 mg PO BID 09/16/20 09/20/24 History aspirin 81 mg tablet,delayed 81 mg PO BID 09/16/20 09/20/24 History release clopidogrel 75 mg tablet (Plavix) 75 mg PO QAM 09/16/20 09/20/24 History finasteride 5 mg tablet 5 mg PO QAM 09/16/20 09/20/24 History fluticasone 250 mcg-salmeterol 50 1 inh inhalation BID 09/16/20 09/20/24 History mcg/dose blistr powdr for inhalation (Advair Diskus) nitroglycerin 0.4 mg sublingual 0.4 mg sublingual UD PRN Chest Pain 09/16/20 09/20/24 History tablet (Nitrostat) pantoprazole 40 mg tablet,delayed 40 mg PO QAM 09/16/20 09/20/24 History release (Protonix) rosuvastatin 20 mg tablet (Crestor) 20 mg PO QPM 09/16/20 09/20/24 History tamsulosin 0.4 mg capsule 0.4 mg PO QPM 09/16/20 09/20/24 History hydralazine 10 mg tablet 10 mg PO TID 07/09/24 09/20/24 History isosorbide dinitrate 5 mg tablet 5 mg PO TID 07/09/24 09/20/24 History carvedilol 25 mg tablet 25 mg PO BIDM #60 tabs 07/27/24 09/20/24 Rx mirtazapine 30 mg tablet 30 mg PO HS #30 tabs 07/27/24 09/20/24 Rx docusate sodium 100 mg tablet 100 mg PO HS 09/20/24 09/20/24 History sucroferric oxyhydroxide 500 mg 500 mg PO TIDM 09/20/24 09/20/24 History chewable tablet (Velphoro) Patient History Medical History ESRD (end stage renal disease) on dialysis Penile edema Esophageal dysmotility Slow to wake up after anesthesia Vascular disease, peripheral BPH (benign prostatic hyperplasia) Hiatal hernia Dysphagia Belching continuous x several hours after eating/drinking GERD (gastroesophageal reflux disease) History of kidney cancer 2010 cryoablation therapy; follows with [facility] 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 Lai/Dr. Mancilla History of TIA (transient ischemic attack) 2018 History of myocardial infarction 1992 Hyperlipemia HTN (hypertension) COPD (chronic obstructive pulmonary disease) Surgical History History of tooth extraction History of vascular surgery stent LLE History of esophagogastroduodenoscopy (EGD) History of colonoscopy History of prior ablation treatment History of heart artery stent "quite a few" (2 placed 03/2019 and mult prior to) History of cardiac catheterization most recent 03/2019 at [facility] - 2 stents placed; mult cath[facility] [place] [facility]; [facility] [place] (unable to recall specifics) History of coronary artery bypass graft x 3 1996 Family History Other Coronary heart disease No family history of adverse response to anesthesia Social History (Reviewed 09/21/24 @ 10:31 by ALEJANDRA Renee Smoking Status: Former smoker Second Hand Exposure: No; Do You Dip or Chew Tobacco: No; Hx Alcohol Use: No Hx Substance Use: No Preferred Language: Latvian Communication Ability: Effective Operations Support Coordinator Required: No Beliefs That Will Affect Care: None Current Living Situation: Spouse Feels Safe at Home: Yes Assistive Devices: Denture - Upper, Denture - Lower and Hearing Aid - Bilateral Review of Systems 2 Review of Systems: All systems reviewed & are unremarkable except as noted in Subjective Physical Exam Constitutional: well developed and well nourished; no acute distress Respiratory: normal respiratory effort; no respiratory distress and no labored breathing Auscultation: lungs clear to auscultation bilaterally; no crackles, no rales, no rhonchi and no wheezes Cardiovascular: Rate/Rhythm: regular rate and regular rhythm Heart Sounds: normal S1 and normal S2; no murmur Vessels: no JVD Extremities: no edema Gastrointestinal (Abdomen): Inspection/Auscultation: normal bowel sounds; abdomen not distended Percussion/Palpation: abdomen soft; abdomen nontender, no guarding and abdomen not rigid Neurologic: CN's II-XI intact bilaterally and moves all extremities; no focal motor deficits Results & Data Vital Signs (Past 12 Hours) Vital Signs Temp Pulse Pulse Resp BP Pulse Ox O2 Del Method 09/21/24 08:00 Nasal Cannula 09/21/24 07:58 36.3 C L 58 L 174/80 H 95 Nasal Cannula 09/21/24 02:39 36.8 C 57 L 20 151/69 H 95 Nasal Cannula 09/20/24 23:16 111 H 09/20/24 23:16 Nasal Cannula 09/20/24 22:55 36.6 C 110 H 24 153/102 H 92 Nasal Cannula 09/20/24 22:35 106 H 18 137/96 93 Nasal Cannula O2 Flow Rate 09/21/24 08:00 2 09/21/24 07:58 09/21/24 02:39 3 09/20/24 23:16 09/20/24 23:16 3 09/20/24 22:55 2 09/20/24 22:35 2 Laboratory Results Cardiac Enzymes 09/20/24 09/20/24 09/20/24 Range/Units 16:10 18:51 20:49 AST 12 L (13-39) U/L Troponin I High Sens 24.0 H 37.6 H D 36.4 H (0-20) pg/ml Coagulation 09/20/24 Range/Units 16:10 PT 10.5 (9.0-12.0) Seconds APTT 22 (21-31) Seconds CBC 09/20/24 09/21/24 Range/Units 16:10 09:06 WBC 5.04 5.65 (4.8-10.8) K/ul RBC 3.24 L 2.94 L (4.70-6.10) M/uL Hgb 10.3 L 9.3 L (14.0-18.0) g/dl Hct 30.3 L 27.8 L (42.0-52.0) % Plt Count 206 198 (130-400) K/uL Neut # (Auto) 2.70 (1.40-6.50) K/uL Lymph # (Auto) 1.05 L (1.20-3.40) K/uL [place] # (Auto) 0.93 H (0.11-0.59) K/uL Eos # (Auto) 0.31 (0.00-0.50) K/uL Baso # (Auto) 0.03 (0.00-0.20) K/uL Comprehensive Metabolic Panel 09/20/24 09/21/24 Range/Units 16:10 09:06 Sodium 137 138 (136-145) mmol/L Potassium 3.6 4.6 D (3.5-5.1) mmol/L Chloride 95 L 99 (98-107) mmol/L Carbon Dioxide 37 H 35 H (21-32) mmol/L BUN 8 17 (6-23) mg/dl Creatinine 1.51 H 2.57 H D (0.6-1.4) mg/dl Glucose 113 H 130 H (70-99(Fasting)) mg/dl Calcium 9.1 9.0 (8.6-10.3) mg/dl AST 12 L (13-39) U/L ALT 10 (7-52) U/L Alkaline Phosphatase 57 (34-104) U/L Total Protein 7.0 (6.0-8.3) gm/dl Albumin 4.2 (3.4-5.0) gm/dl Intake and Output 09/20/24 09/21/24 09/21/24 22:59 06:59 14:59 Intake Total 234.5 / 234.5 Output Total 0 / 0 Balance 234.5 / 234.5 Intake: IV 114.5 / 114.5 Heparin 92011 Unit/500 ml D5w 114.5 / 114.5 25,000 units In 500 ml @ 900 UNITS/HR 18 mls/hr IV .Q24H [facility] Rx#:[id number] Oral 120 / 120 Output: Urine 0 / 0 Other: Weight 57.742 kg 57.606 kg Weight Measurement Method Standing Scale Standing Scale (3) Anemia Anemia type: unspecified type Qualified Code(s): D64.9 - Anemia, unspecified
[2024-09-21] MEDS: ASPIRIN 81 MG CHEW PO SCH (11:20)
[2024-09-21] MEDS: CLOPIDOGREL BISULFATE 75 MG TAB PO SCH (11:20)
[2024-09-21] MEDS: bisacodyL 10 MG SUPP PR STA (12:28)
[2024-09-21 13:15] LABS: Hematocrit (blood only) 24.4 % (42.0-52.0); Hemoglobin 8.3 g/dl (14.0-18.0)
[2024-09-22] MEDS: SIMETHICONE 80 MG CHEW PO PRN (06:28)
[2024-09-22 07:47] LABS: Hematocrit (blood only) 25.6 % (42.0-52.0); Hemoglobin 8.5 g/dl (14.0-18.0); Mean Corpuscular Hemoglobin 31.3 pg (25.0-34.0); Mean Corpuscular Hgb Conc 33.2 g/dL (32.0-36.0); Mean Corpuscular Volume 94.1 fL (80.0-100.0); Mean Platelet Volume 9.5 fL (9.4-12.4); Platelet Count 187 K/uL (130-400); RDW Coefficient of Variation 15.6 % (11.5-14.5); RDW Standard Deviation 53.4 fL (36.4-46.3); Red Blood Count 2.72 M/uL (4.70-6.10); White Blood Count 6.64 K/ul (4.8-10.8)
[2024-09-22 08:05] LABS: BUN Creatinine Ratio 6.9 (10-20); Creatinine Clr Calc Pharmacy 11.9 ml/min; Potassium 4.3 mmol/L (3.5-5.1)
--- NOTE | 2024-09-22 10:55 | Nephrology Progress Note ---
Date of Service September 22, 2024 Assessment & Plan Admission and Anticipated Discharge Date Admission Date: September 20, 2024 Subjective Assessment & Plan (1) ESRD (end stage renal disease) on dialysis: had CKD and then started On Dialysis after [facility]. Gets Dialysis MWF at the [facility]---[facility] stra[facility] there. No E/o fluid overload currently but he is at risk with Afibb/RVR and His Cardiac History. Electrolytes are fine. Planning to Do dialysis today--3.5 hrs 3k and take 2-3 kilo off. (2) Atrial fibrillation with rapid ventricular response: Associated with Chest Pain also. Complex cardiac History. S--No Chest pain and No SOB. Wants to go home. Dialysis for later today ROS--As per HPI. Otherwise 12 Systems negative. Physical Exam Constitutional: well developed and well nourished; no acute distress Respiratory: normal respiratory effort; no respiratory distress and no labored breathing Auscultation: lungs clear to auscultation bilaterally; no crackles, no rales, no rhonchi and no wheezes Cardiovascular: Rate/Rhythm: regular rate and regular rhythm Heart Sounds: normal S1 and normal S2; no murmur Vessels: no JVD Extremities: no edema Gastrointestinal (Abdomen): Inspection/Auscultation: normal bowel sounds; abdomen not distended Percussion/Palpation: abdomen soft; abdomen nontender, no guarding and abdomen not rigid Neurologic: CN's II-XI intact bilaterally and moves all extremities; no focal motor deficits Results & Data Vital Signs (Past 12 Hours) Vital Signs Temp Pulse Pulse Resp BP Pulse Ox O2 Del Method 09/22/24 10:53 36.6 C 60 20 157/63 H 95 Nasal Cannula 09/22/24 08:18 36.5 C 63 17 151/72 H 94 Room Air 09/22/24 07:39 36.6 C 62 22 182/73 H 93 Nasal Cannula 09/22/24 06:15 57 L 18 175/79 H 91 Nasal Cannula 09/22/24 05:53 60 09/22/24 03:43 36.5 C 57 L 18 171/70 H 90 Nasal Cannula 09/21/24 23:13 36.5 C 59 L 18 157/70 H 91 Nasal Cannula O2 Flow Rate 09/22/24 10:53 3 09/22/24 08:18 03/07/25 07:39 3 09/22/24 06:15 3 09/22/24 05:53 09/22/24 03:43 3.0 09/21/24 23:13 3.0
[2024-09-22 11:57] LABS: Hematocrit (blood only) 25.6 % (42.0-52.0); Hemoglobin 8.6 g/dl (14.0-18.0)
--- NOTE | 2024-09-22 12:20 | Cardiology Progress Note ---
Date of Service September 22, 2024 Assessment & Plan (1) Atrial fibrillation with rapid ventricular response: (2) Elevated troponin: (3) Anemia: (4) Labile hypertension: Plan 89-year-old male admitted secondary to recurrent atrial fibrillation with rapid ventricular response and angina. Mildly elevated high-sensitivity troponin secondary to demand ischemia. Atrial fibrillation precipitated by lack of beta- darci therapy for 48 hours prior to presentation. Recommendations: * Continue carvedilol 37.5 mg twice daily. * IV heparin as inpatient, however, hold off on long-term anticoagulation; current event likely precipitated by beta-darci withdrawal * Continue low-dose aspirin and clopidogrel. * Continue other antihypertensive medications including hydralazine, amlodipine, and isosorbide dinitrate. * Hold parameters for isosorbide need to be adjusted at time of discharge for assisted-living facility. Apparently medication was being held for diastolic blood pressure less than 80. * Recommend holding isosorbide for SBP less than 120mmHg, and diastolic blood p ressure less than 60mmHg as outpatient. * HD 09/22/2024 * No further inpatient cardiac testing or intervention recommended at this time. * Cardiology will sign off. Please call if additional concerns/questions Prasanna Ruiz DO, [facility] Admission and Anticipated Discharge Date Admission Date: September 20, 2024 Subjective 89-year-old male seen examined at the bedside. Feeling better today. Blood pressure improved after restarting beta-darci therapy. No recurrent atrial fibrillation overnight. Telemetry will sinus bradycardia in the 50s. Scheduled for dialysis treatment this afternoon. Review of Systems Review of Systems: All systems reviewed & are unremarkable except as noted in Subjective Physical Exam Constitutional: well developed and well nourished; no acute distress Respiratory: normal respiratory effort; no respiratory distress and no labored breathing Auscultation: lungs clear to auscultation bilaterally; no crackles, no rales, no rhonchi and no wheezes Cardiovascular: Rate/Rhythm: regular rate and regular rhythm Heart Sounds: normal S1 and normal S2; no murmur Vessels: no JVD Extremities: no edema Gastrointestinal (Abdomen): Inspection/Auscultation: normal bowel sounds; abdomen not distended Percussion/Palpation: abdomen soft; abdomen nontender, no guarding and abdomen not rigid Neurologic: CN's II-XI intact bilaterally and moves all extremities; no focal motor deficits Results & Data Vital Signs (Past 12 Hours) Vital Signs Temp Pulse Pulse Resp BP Pulse Ox O2 Del Method 09/22/24 11:14 94 09/22/24 10:53 36.6 C 60 20 157/63 H 95 Nasal Cannula 09/22/24 08:30 Nasal Cannula 09/22/24 08:18 36.5 C 63 17 151/72 H 94 Room Air 09/22/24 07:39 36.6 C 62 22 182/73 H 93 Nasal Cannula 09/22/24 06:15 57 L 18 175/79 H 91 Nasal Cannula 09/22/24 05:53 60 09/22/24 03:43 36.5 C 57 L 18 171/70 H 90 Nasal Cannula O2 Flow Rate 09/22/24 11:14 09/22/24 10:53 3 09/22/24 08:30 3 09/22/24 08:18 09/22/24 07:39 3 09/22/24 06:15 3 09/22/24 05:53 09/22/24 03:43 3.0 Laboratory Results CBC 09/21/24 09/22/24 09/22/24 Range/Units 12:56 07:27 11:42 WBC 6.64 (4.8-10.8) K/ul RBC 2.72 L (4.70-6.10) M/uL Hgb 8.3 L 8.5 L 8.6 L (14.0-18.0) g/dl Hct 24.4 L 25.6 L 25.6 L (42.0-52.0) % Plt Count 187 (130-400) K/uL Comprehensive Metabolic Panel 09/22/24 Range/Units 07:27 Sodium 139 (136-145) mmol/L Potassium 4.3 (3.5-5.1) mmol/L Chloride 100 (98-107) mmol/L Carbon Dioxide 33 H (21-32) mmol/L BUN 26 H (6-23) mg/dl Creatinine 3.77 H D (0.6-1.4) mg/dl Glucose 95 (70-99(Fasting)) mg/dl Calcium 9.0 (8.6-10.3) mg/dl Intake and Output 09/21/24 09/22/24 09/22/24 22:59 06:59 14:59 Intake Total 160 / 1076.5 160 / 1076.5 Output Total Balance 159 / 1075.5 160 / 1075.5 Intake: Oral 160 / 900 160 / 900 Output: Urine 0 / 0 # Bowel Movements Other: # Unmeasured Voids 1 1 Weight 61.9 kg Weight Measurement Method Built in [facility] (3) Anemia Anemia type: unspecified type Qualified Code(s): D64.9 - Anemia, unspecified
[2024-09-22] MEDS: EPOETIN ALFA 20,000 UNITS/ML VIAL IV ONE (13:16)
--- NOTE | 2024-09-22 14:28 | Discharge Summary ---
Date of Service September 22, 2024 Admission HPI Per Admitting Provider This is an 89yo M with a complex PMH of CAD (s/p multiple stents and CABG), PAD s/p bilateral common iliac stents, TIA, bilateral carotid stenosis, ESRD on HD MWF, atrial fibrillation diagnosed in Jul 2024, systolic and diastolic CHF, s/p left kidney cryoablation, COPD, GERD and other medical problems who presents with intermittent chest pain x 2 weeks. Patient was recently admitted to our service from 07/09-07/27 for worsening CKD and was started on hemodialysis with catheter placement on 07/21. During that admission, was also found to be in new onset A-fib with RVR but converted to sinus rhythm and Dr. Armenta comfortable with continuing DAPT without anticoagulation unless recurrent events. Was discharged on Coreg 25 mg twice daily. Also had abdominal pain with imaging revealing gallstones but HIDA scan was negative for acute cholecystitis and patient was deemed a poor elective surgical candidate at that time. Patient was discharged to assisted living at [facility] in [place]. Has been doing well and underwent dialysis earlier today. Upon return to facility, developed chest pain around 1500 with associated gas pains. Nitroglycerin was given en route to ED and pain subsided. Patient still comfortable at rest. Per report given by family at bedside (son works at [employer]) and review of facility medication list, patient's Coreg dose was held for the past 2 days due to dose instructions followed by the med techs at the facility. Per review of chart, Dr. Hatfield wanted hold parameters for hydralazine and Norvasc only (to hold medication if SBP <130 or DBP <80) but those holds had been applied to Coreg and Isosorbide as well, resulting in missed doses of both in the past few days. Did received Coreg 25mg dose this AM. Currently, patient is resting comfortably. No fever, chills, lightheadedness, chest pain, palpitations, shortness of breath, nausea, vomiting, abdominal pain, diarrhea or constipation. Limited urine output in setting of ESRD. Admission Exam Per Admitting Provider General Appearance: WD/WN, vitals as above, NAD, sitting up in bed, pleasant, elderly male Head: normocephalic, atraumatic Eyes: normal inspection, PERRL, conjunctivae normal, anicteric sclerae ENT: hard of hearing, external ear and nose normal, oropharynx normal Neck: normal visual inspection, trachea midline, no thyromegaly Respiratory: normal respiratory effort, lungs clear to auscultation, no wheeze, rales, rhonchi. No accessory muscle use Cardiovascular: irregular rate & rhythm, normal peripheral pulses, no BLE edema. Vessels: no JVD Chest: normal inspection of chest, Dialysis catheter R chest, no surrounding erythema Abdomen/GI: normal bowel sounds, soft, nontender, no hepatosplenomegaly Extremities/Musculoskeletal: no cyanosis or clubbing, extremities motor strength 5/5 Neurologic: PERRL, EOMI, accommodation nl, no face palsy, no dysarthria, CN's II-XI intact bilaterally and moves all extremities Psychiatric: A+Ox3, euthymic affect Skin: no rashes, normal color, warm/dry Principal Diagnosis Atrial fibrillation with rapid ventricular response Chest pain Discharge Exam Constitutional: WD/WN, vitals as above Respiratory: normal respiratory effort, lungs clear to auscultation Cardiovascular: RRR, no murmur, no edema Discharge Data Allergies Allergy/AdvReac Type Severity Reaction Status Date / Time ciprofloxacin [From Cipro] AdvReac Vomiting Verified 09/19/20 10:27 Iodinated Contrast Media AdvReac Unknown Verified 09/19/20 10:27 Consultations 09/20/24 17:20 ED Decision to Admit Stat 09/20/24 17:45 Consult Nephrology Routine 09/20/24 18:44 Consult Cardiology Routine Hospital Course (1) Atrial fibrillation with rapid ventricular response: (2) Chest pain: (3) BPH with urinary obstruction: (4) Hypertension, uncontrolled: (5) ESRD (end stage renal disease) on dialysis: (6) CHF (congestive heart failure): (7) Anemia: Plan This is an 89yo M with a complex PMH of CAD (s/p multiple stents and CABG), PAD s/p bilateral common iliac stents, TIA, bilateral carotid stenosis, ESRD on HD MWF, atrial fibrillation diagnosed in Jul 2024, systolic and diastolic CHF, COPD, GERD and other medical problems who presents with intermittent chest pain x 2 weeks and admitted for atrial fibrillation with RVR Patient in NSR at this time. Medications resumed as it was reported that patient likely without 2 days of BB[facility] Hgb 9.3, recommended previously that transfusion level <10, will repeat HH and if < 10 will transfuse #A fib with RVR #c/f tachybrady syndrome new diagnosis as of 07/21 Rate improved in ER after 5mg IV Lopressor from 110s now 100 In setting of a few mised doses of Carvedilol 25mg BID in the past 2 days in assisted living facility Replaced K to keep >4 Magnesium, TSH added to labs Increase Carvedilol to 37.5mg BID PRN IV Lopressor for HR > 110 Monitor on telemetry Routine cardiology consult discontinue heparin Cardiology following: may require pacemaker implantation in the future if additional AV xiomara blocking agents/antiarrhythmic therapy such as amiodarone is needed to maintain sinus rhythm. Recommendation reviewed: * Continue carvedilol 37.5 mg twice daily. * Restart low-dose aspirin and clopidogrel. * Continue other antihypertensive medications including hydralazine, amlodipine, and isosorbide dinitrate. * Hold parameters for isosorbide need to be adjusted at time of discharge for assisted-living facility. Apparently medication was being held for diastolic blood pressure less than 80. * Recommend holding isosorbide for SBP less than 120mmHg, and diastolic blood pressure less than 60mmHg as outpatient. #obstructive CAD s/p CABG 1996, CHARMAINE 2018 #Chest pain #Elevated troponin, likely multifactorial iso rvr and known CAD History of complex CAD history including multiple stents and CABG Intermittent pain x 2 weeks, more severe today following dialysis Pain resolved after 1 dose of nitro en route to hospital Received 325 mg aspirin Continue statin, carvedilol, isosorbide 5 mg 4 times daily Initial troponin 24 in setting of ESRD -trend overnight Monitor on telemetry Cardiology consulted #PAD s/p bilateral common iliac stents resume asa and plavix for now as above #ESRD on HD MWF Had dialysis today Routine nephro consult Continue Velphoro TIDM #Anemia of chronic disease Has been receiving IV iron infusions as outpatient Per recent cards communication, recommend hgb >10 given CAD repeat hgb #Chronic heart failure with preserved EF Appears euvolemic following HD today CXR with small right pleural effusion, appears decreased DVT Ppx: IV heparin Code status: DNR/DNI, discussed with patient PCP: Liu Dispo: admitted to PCU Follow-up with your primary care physician within a week time and likely you will need labs CBC/CMP/magnesium/phosphorus. Follow-up with your nephrology in 2 to 4 weeks time upon discharge, follow-up with your dialysis. Follow-up on your hemoglobin level within a week time (coordinate with your PCP office to set up the test) and possibly you will need 1 unit blood transfusion during dialysis in 1 to 2 weeks time if hemoglobin is still less than 10. Cardiology evaluated you while in hospital, your Coreg dose has been increased to 37.5 mg twice daily. Continue with aspirin and Plavix. Continue your other blood pressure medications including hydralazine, amlodipine, isosorbide dinitrate. Holding parameters for isosorbide are as follows: * Recommend holding isosorbide for SBP less than 120mmHg, and diastolic blood pressure less than 60mmHg as outpatient. Follow up with your cardiology in 2-4 weeks time upon discharge. Take your medications as prescribed. Please make sure that you are able to get your medications today by calling your pharmacy before you leave the hospital so that your treatment continuity is not broken. Home Health Attestation I certify that this patient is under my care and that I, or a physicians staffing assistant working with me, had a face to-face encounter that meets the home health [id number] encounter requirements with this patient. The encounter with the patient was in whole, or in part, for the following medical condition, which is the primary reason for home health care (list medical condition): I certify that, based on my findings, the following services are medically necessary home health services: My clinical findings support the need for the above services because: Further, I certify that my clinical findings support that this patient is homebound (i.e. absences from home require considerable and taxing effort and are for medical reasons or taoist services or infrequently or of short duration when for other reasons) because: Certification for Home Health Services: Based on the above findings, I certify that this patient is confined to the home and needs intermittent snf care, physical therapy and/or speech therapy or continues to need occupational therapy. The patient is under my care, and I have initiated the establishment of the plan of care. This patient will be followed by a physician who will periodically review the plan of care. Total Time Total Time Spent Total Time Spent (In Minutes): 35 Discharge Plan Discharge Items Patient Disposition: Home - Self-Care Reason For Visit: A FIB WITH RVR, CP Discharge Diagnosis: Atrial fibrillation with rapid ventricular response Chest pain Activity: Resume your previous activity Non-emergency contact: Primary Care Provider Call non-emergency contact if: you have any medication questions and your symptoms worsen Follow-up/Referrals: Sunny Hatfield DO [Primary Care Provider] - Diet: Heart Healthy Addtl Attending Provider Instructions: Follow-up with your primary care physician within a week time and likely you will need labs CBC/CMP/magnesium/phosphorus. Follow-up with your nephrology in 2 to 4 weeks time upon discharge, follow-up with your dialysis. Follow-up on your hemoglobin level within a week time (coordinate with your PCP office to set up the test) and possibly you will need 1 unit blood transfusion during dialysis in 1 to 2 weeks time if hemoglobin is still less than 10. Cardiology evaluated you while in hospital, your Coreg dose has been increased to 37.5 mg twice daily. Continue with aspirin and Plavix. Continue your other blood pressure medications including hydralazine, amlodipine, isosorbide dinitrate. Holding parameters for isosorbide are as follows: * Recommend holding isosorbide for SBP less than 120mmHg, and diastolic blood pressure less than 60mmHg as outpatient. Follow up with your cardiology in 2-4 weeks time upon discharge. Take your medications as prescribed. Please make sure that you are able to get your medications today by calling your pharmacy before you leave the hospital so that your treatment continuity is not broken. Pending Studies at Discharge: No Stand-Alone Forms: My [facility], Smoking Cessation Medications and DC Order Prescriptions: New carvedilol 12.5 mg Tablet 37.5 mg PO BIDM 21 Days Qty: 126 0RF Continued fluticasone propion-salmeterol [Advair Diskus] 250-50 mcg/dose Blister With Device 1 inh INHALATION BID acetaminophen [Tylenol] 325 mg Tablet 325 mg PO QID PRN (Reason: Pain) clopidogrel [Plavix] 75 mg Tablet 75 mg PO QAM amlodipine [Norvasc] 5 mg Tablet 5 mg PO BID aspirin 81 mg Tablet,Delayed Release (Dr/Ec) 81 mg PO BID tamsulosin 0.4 mg Capsule 0.4 mg PO QPM pantoprazole [Protonix] 40 mg Tablet,Delayed Release (Dr/Ec) 40 mg PO QAM nitroglycerin [Nitrostat] 0.4 mg Tablet, Sublingual 0.4 mg sublingual UD PRN (Reason: Chest Pain) albuterol 90 mcg/actuation Aerosol 90 mcg INHALATION UD PRN (Reason: sob) finasteride 5 mg Tablet 5 mg PO QAM rosuvastatin [Crestor] 20 mg Tablet 20 mg PO QPM hydralazine 10 mg tablet 10 mg PO TID isosorbide dinitrate 5 mg tablet 5 mg PO TID mirtazapine 30 mg tablet 30 mg PO HS Qty: 30 0RF Velphoro 500 mg tablet,chewable 500 mg PO TIDM docusate sodium 100 mg Tablet 100 mg PO HS Discontinued carvedilol 25 mg Tablet 25 mg PO BIDM Qty: 60 0RF Discharge Orders: Discharge Order (Routine); Ordered 09/22/24 Ordered By: Herberth Tobar Admission Data Admit Date/Time: 09/20/24 17:45 Attending Provider: Herberth Tobar Admit Provider: Dimitris Espinoza Primary Care Provider: Sunny Hatfield Other Providers: Prasanna Ruiz; Jim Weldon; Dimitrsi Espinoza; [facility]
--- NOTE | 2024-09-22 14:47 | Hospitalist Progress Note ---
Date of Service September 22, 2024 Assessment & Plan (1) Atrial fibrillation with rapid ventricular response: (2) Chest pain: (3) BPH with urinary obstruction: (4) Hypertension, uncontrolled: (5) ESRD (end stage renal disease) on dialysis: (6) CHF (congestive heart failure): (7) Anemia: Plan 89yo M with a complex PMH of CAD (s/p multiple stents and CABG), PAD s/p bilateral common iliac stents, TIA, bilateral carotid stenosis, ESRD on HD MWF, atrial fibrillation diagnosed in Jul 2024, systolic and diastolic CHF, COPD, GERD and other medical problems who presents with intermittent chest pain x 2 weeks and admitted for atrial fibrillation with RVR #A fib with RVR #c/f tachybrady syndrome new diagnosis as of 07/21 Rate improved in ER after 5mg IV Lopressor from 110s now 100 In setting of a few mised doses of Carvedilol 25mg BID in the past 2 days HISTORICAL ARCHEOLOGIST in assisted living facility Monitor and replete electrolytes: keep K> 4 and Mg> 2. Cards evaled, carvedilol 37.5 mg twice daily. c/w DAPT. C/w hydralazine, amlodipine, and isosorbide dinitrate. Recommend holding isosorbide for SBP less than 120mmHg, and diastolic blood pressure less than 60mmHg as outpatient. #obstructive CAD s/p CABG 1996, CHARMAINE 2018 #Chest pain #Elevated troponin, likely multifactorial iso rvr and known CAD History of complex CAD history including multiple stents and CABG Intermittent pain x 2 weeks, more severe today following dialysis Pain resolved after 1 dose of nitro en route to hospital Received 325 mg aspirin, trop trend was flat. Continue statin, carvedilol, isosorbide/hydralazine Cards evaled. d/w cardio, maintain Hb atleast above 8, favorable above 10. #PAD s/p bilateral common iliac stents: c/w DAPT. #ESRD on HD MWF : getting dialysis today, nephro on board. Continue Velphoro TIDM. If still in hosptial and Hb < 10, consider 1 unit prbc transfusion with next dialysis. #Anemia of chronic disease Has been receiving IV iron infusions as outpatient Per recent cards communication, recommend hgb >10 given CAD Monitor [facility], received procrit 09/22. #Chronic heart failure with preserved EF Appears euvolemic following HD today CXR with small right pleural effusion, appears decreased DVT Ppx: SC heparin Code status: DNR/DNI PCP: Liu Dispo: admitted to PCU, 2 step test, possible dc [facility] O[facility] CM assisting w/ DC plan. Admission and Anticipated Discharge Date Admission Date: September 20, 2024 Subjective Patient was seen and examined at bedside. Patient was lying in bed, on 3 L oxygen via nasal gel, NAD, resting comfortably. Patient denies any chest pain, reports eating okay, reports last bowel movement 2 days ago. Patient denies any palpitation. Physical Exam Physical Exam: Constitutional: WD/WN, vitals as a sid Respiratory: normal respiratory effort, lungs arcelia ar to auscultation Cardiovascular: RRR, no murmur, no edema Results & Data Results & Data Vital Signs (Past 12 Hours) Vital Signs Temp Pulse Pulse Pulse Resp BP BP 09/22/24 13:30 62 144/83 H 09/22/24 13:00 56 L 164/86 H 09/22/24 12:30 54 L 156/86 H 09/22/24 12:00 52 L 179/78 H 09/22/24 11:30 55 L 178/99 H 09/22/24 11:22 57 L 186/98 H 09/22/24 11:15 36.6 C 58 L 09/22/24 11:14 09/22/24 10:53 36.6 C 60 20 157/63 H 09/22/24 08:30 09/22/24 08:18 36.5 C 63 17 151/72 H 09/22/24 07:39 36.6 C 62 22 182/73 H 09/22/24 06:15 57 L 18 175/79 H 09/22/24 05:53 60 09/22/24 03:43 36.5 C 57 L 18 171/70 H Pulse Ox O2 Del Method O2 Flow Rate 09/22/24 13:30 09/22/24 13:00 09/22/24 12:30 09/22/24 12:00 09/22/24 11:30 09/22/24 11:22 09/22/24 11:15 09/22/24 11:14 94 09/22/24 10:53 95 Nasal Cannula 3 09/22/24 08:30 Nasal Cannula 3 09/22/24 08:18 94 Room Air 09/22/24 07:39 93 Nasal Cannula 3 09/22/24 06:15 91 Nasal Cannula 3 09/22/24 05:53 09/22/24 03:43 90 Nasal Cannula 3.0 (2) Chest pain Chest pain type: unspecified Qualified Code(s): R07.9 - Chest pain, unspecified
[2024-09-22] MEDS: hydrALAZINE HCL 20 MG/ML VIAL IV STA (18:09)
[2024-09-22] MEDS: hydrALAZINE HCL 20 MG/ML VIAL IV PRN (22:05)
[2024-09-22] MEDS: HEPARIN SOD 5,000 UNIT/0.5 ML VIAL SQ SCH (22:12)
[2024-09-23] MEDS: hydrALAZINE HCL 25 MG TAB PO STA (00:35)
[2024-09-23 07:34] LABS: Hemoglobin 9.1 g/dl (14.0-18.0); Mean Corpuscular Hemoglobin 31.8 pg (25.0-34.0); Mean Corpuscular Hgb Conc 33.7 g/dL (32.0-36.0); Mean Corpuscular Volume 94.4 fL (80.0-100.0); Mean Platelet Volume 9.9 fL (9.4-12.4); Platelet Count 186 K/uL (130-400); RDW Coefficient of Variation 15.8 % (11.5-14.5); RDW Standard Deviation 53.8 fL (36.4-46.3); Red Blood Count 2.86 M/uL (4.70-6.10)
[2024-09-23 08:01] LABS: BUN Creatinine Ratio 4.8 (10-20); Calcium 9.3 mg/dl (8.6-10.3); Magnesium 2.2 mg/dl (1.7-2.4); Phosphorus 3.7 mg/dl (2.5-4.9)
--- NOTE | 2024-09-23 08:38 | Communication Note ---
Date of Service: September 23, 2024 Patient was seen and examined at bedside due to RN's concern of patient not waking up on her morning exam. RN not sure if this is patient's baseline or if this is new changes in his mentation. Patient was evaluated at bedside by myself, appeared to be sleepy, no facial droop or deviation of tongue noted. Bilateral presbyterian clergy weaker (likely because he is sleepy) but symmetrical, bilateral lower extremity strength symmetrical. Patient appeared to be sleepy and is following basic commands only, delayed response, dozing off in between commands. Patient did speak little but no slurring was noted. Will continue with every 2 hour neurocheck and control blood pressure, as needed blood pressure medication has been on board. Advised RN to closely monitor him neurologically and notify me of any further concerns.
[2024-09-23] MEDS: hydrALAZINE HCL 25 MG TAB PO SCH (09:41)
--- NOTE | 2024-09-23 12:35 | Hospitalist Progress Note ---
Date of Service September 23, 2024 Assessment & Plan (1) Atrial fibrillation with rapid ventricular response: (2) Chest pain: (3) BPH with urinary obstruction: (4) Hypertension, uncontrolled: (5) ESRD (end stage renal disease) on dialysis: (6) CHF (congestive heart failure): (7) Anemia: Plan 89yo M with a complex PMH of CAD (s/p multiple stents and CABG), PAD s/p bilateral common iliac stents, TIA, bilateral carotid stenosis, ESRD on HD MWF, atrial fibrillation diagnosed in Jul 2024, systolic and diastolic CHF, COPD, GERD and other medical problems who presents with intermittent chest pain x 2 weeks and admitted for atrial fibrillation with RVR #A fib with RVR #c/f tachybrady syndrome #new diagnosis as of 07/21 Rate improved in ER after 5mg IV Lopressor from 110s now 100 In setting of a few mised doses of Carvedilol 25mg BID in the past 2 days [employer] TR[employer] in assisted living facility Monitor and replete electrolytes: keep K> 4 and Mg> 2. Cards evaled, carvedilol 37.5 mg twice daily. c/w DAPT. C/w hydralazine, amlodipine, and isosorbide dinitrate. Recommend holding isosorbide for SBP less than 120mmHg, and diastolic blood pressure less than 60mmHg as outpatient. Altered mentation: noted to be confused, difficult to arouse in AM of 8, no focal neurological s/s noted, pt denied any numbness/tingling/vision problem/headache. likely delirium iso hospitalization in a patient w/ ESRD and other significant comorbidities. Delirium precaution, get CT head. Pt's son was updated about his mentation changes and plan of care, he voiced understanding. #obstructive CAD s/p CABG 1996, CHARMAINE 2018 #Chest pain #Elevated troponin, likely multifactorial iso rvr and known CAD History of complex CAD history including multiple stents and CABG Intermittent pain x 2 weeks, more severe today following dialysis Pain resolved after 1 dose of nitro en route to hospital Received 325 mg aspirin, trop trend was flat. Continue statin, carvedilol, isosorbide/hydralazine Cards evaled. d/w cardio 09/22, maintain Hb atleast above 8, favorable above 10. #PAD s/p bilateral common iliac stents: c/w DAPT. #ESRD on HD MWF : getting dialysis today, nephro on board. Continue Velphoro TIDM. If still in hosptial and Hb < 10, consider 1 unit prbc transfusion with next dialysis. #Anemia of chronic disease Has been receiving IV iron infusions as outpatient Per recent cards communication, recommend hgb >10 given CAD Monitor [facility], received procrit 09/22. #Chronic heart failure with preserved EF Appears euvolemic following HD today CXR with small right pleural effusion, appears decreased DVT Ppx: SC heparin Code status: DNR/DNI PCP: Liu Dispo: admitted to PCU, 2 step test, possible dc [facility] O[facility] CM assisting w/ DC plan. Admission and Anticipated Discharge Date Admission Date: September 20, 2024 Subjective Patient was seen and examined at bedside. Patient was evaluated at bedside 2 times today. Initial evaluation due to RN paging because patient was difficult to awake. Patient was evaluated at bedside, no facial deviation/no slurred speech/no unilateral weakness was noted. patient was able to follow basic commands. Patient was dozing off to sleep between commands. Follow-up evaluation about 2 hours later, patient more awake, oriented times x 4, no focal neurological signs noted, patient stated that he was sleeping earlier today. Patient seems a bit withdrawn and is not fully complying with nursing care per RN. D/w RN , patient at risks of delirium & plan to continue to monitor him neurologically for now. Will get CT scan of the head. Patient stated that he had a late breakfast at around 11 AM and he did not have trouble swallowing food. Patient denies any chest pain or numbness or tingling anywhere in the body. Physical Exam Physical Exam: Constitutional: WD/WN, vitals as a sid. No focal susan rological s/s. Respiratory: normal respiratory effort, lungs arcelia ar to auscultation Cardiovascular: RRR, no murmur, no edema Results & Data Results & Data Vital Signs (Past 12 Hours) Vital Signs Temp Pulse Pulse Resp BP Pulse Ox O2 Del Method 09/23/24 11:03 61 09/23/24 10:48 36.1 C L 77 18 156/68 H 97 Nasal Cannula 09/23/24 09:36 70 196/91 H 09/23/24 08:14 36.7 C 62 16 190/78 H 96 Nasal Cannula 09/23/24 07:30 Nasal Cannula 09/23/24 04:07 36.5 C 74 18 160/77 H 94 Nasal Cannula O2 Flow Rate 09/23/24 11:03 09/23/24 10:48 2.0 09/23/24 09:36 09/23/24 08:14 2.0 09/23/24 07:30 2 09/23/24 04:07 2.0 (2) Chest pain Chest pain type: unspecified Qualified Code(s): R07.9 - Chest pain, unspecified
--- NOTE | 2024-09-23 13:39 | CT Scan Report ---
CT head/brain wo con CLINICAL HISTORY: AMS. TECHNIQUE: Multiple axial CT images of the head were obtained without contrast. A dose lowering tech nique was utilized adhering to the principles of ALARA. CT DOSE: 663.26 mGy.cm COMPARISON: 07/18/2024 FINDINGS: No intracranial hemorrhage seen. No mass effect, midline shift, or hydrocephalus. No skull fracture seen. There is progressive mucosal thickening at the maxillary sinuses, right greater than l eft. No mastoid effusion. IMPRESSION: 1. No acute intracranial findings. 2. Progressive maxillary sinus disease. ACT 112: Negative or not required by law. The above report was generated using voice recognition software. It may contain grammatical, syntax o r spelling errors. Electronically signed by: Joel Bonner M.D. 09/23/2024 1:38 PM
--- NOTE | 2024-09-23 15:56 | Nephrology Progress Note ---
Date of Service September 23, 2024 Assessment & Plan (1) ESRD (end stage renal disease) on dialysis: Plan: had CKD and then started On Dialysis after ROSALBA. Gets Dialysis MWF at the [facility]. No E/o fluid overload currently but he is at risk with Afibb/RVR and His Cardiac History. Electrolytes are fine. Creat seems to be running lot lower than the admission in --?? some early signs of renal recovery. 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 However he has lost 40 lbs so lower creat could just be reflection of the Wt/Muscle loss. Planning to Do dialysis Wednesday (2) Atrial fibrillation with rapid ventricular response: Plan: patient is now rate controlled. Plan Time spent 48 mins Admission and Anticipated Discharge Date Admission Date: September 20, 2024 Subjective Seen for ESRD. No shortness of breath or leg swelling. patient had dialysis yesterday. Review of Systems 2 Review of Systems: All other systems were reviewed and negative except as noted in HPI Physical Exam 2 Physical Exam: General exam: Appears comfortable, no acute distress HEENT: Pupils are equal and reactive to light Neck: No JVD, neck is supple trachea is midline Respiratory system: Clear breath sounds bilaterally. Gastrointestinal: Abdomen is soft, non distended, non tender, bowel sounds are present CVS: Regular rate and rhythm. No murmurs, rubs or gallops Musculoskeletal: No joint or muscle tenderness Extremities: Non tender, no edema, peripheral pulses are present Neuro: Oriented, no tremors, no focal neurological deficits Skin: No rashes Results & Data Vital Signs (Past 12 Hours) Vital Signs Temp Pulse Pulse Resp BP Pulse Ox O2 Del Method 09/23/24 14:44 36.6 C 59 L 16 126/55 L 95 Nasal Cannula 09/23/24 13:50 65 09/23/24 12:59 149/64 H 09/23/24 11:03 61 09/23/24 10:48 36.1 C L 77 18 156/68 H 97 Nasal Cannula 09/23/24 09:36 70 196/91 H 09/23/24 08:14 36.7 C 62 16 190/78 H 96 Nasal Cannula 09/23/24 07:30 Nasal Cannula 09/23/24 04:07 36.5 C 74 18 160/77 H 94 Nasal Cannula O2 Flow Rate 09/23/24 14:44 2.0 09/23/24 13:50 09/23/24 12:59 09/23/24 11:03 09/23/24 10:48 2.0 09/23/24 09:36 09/23/24 08:14 2.0 09/23/24 07:30 2 09/23/24 04:07 2.0 Laboratory Results 09/23/24 06:50 09/23/24 06:50 WBC 6.30 RBC 2.86 L MCV 94.4 MCH 31.8 MCHC 33.7 RDW Std Deviation 53.8 H RDW Coeff of Jessica 15.8 H Plt Count 186 MPV 9.9 Phosphorus 3.7
[2024-09-24 06:52] LABS: Hematocrit (blood only) 27.4 % (42.0-52.0); Hemoglobin 9.2 g/dl (14.0-18.0); Mean Corpuscular Hemoglobin 32.2 pg (25.0-34.0); Mean Corpuscular Hgb Conc 33.6 g/dL (32.0-36.0); Mean Corpuscular Volume 95.8 fL (80.0-100.0); Mean Platelet Volume 9.8 fL (9.4-12.4); Platelet Count 179 K/uL (130-400); RDW Coefficient of Variation 16.1 % (11.5-14.5); RDW Standard Deviation 56.6 fL (36.4-46.3); Red Blood Count 2.86 M/uL (4.70-6.10); White Blood Count 5.32 K/ul (4.8-10.8)
[2024-09-24 07:07] LABS: BUN Creatinine Ratio 5.3 (10-20); Calcium 9.3 mg/dl (8.6-10.3); Creatinine Clr Calc Pharmacy 8.8 ml/min; Potassium 4.2 mmol/L (3.5-5.1)
--- NOTE | 2024-09-24 12:14 | Hospitalist Progress Note ---
Date of Service September 24, 2024 Assessment & Plan (1) Atrial fibrillation with rapid ventricular response: (2) Chest pain: (3) BPH with urinary obstruction: (4) Hypertension, uncontrolled: (5) ESRD (end stage renal disease) on dialysis: (6) CHF (congestive heart failure): (7) Anemia: Plan 89yo M with a complex PMH of CAD (s/p multiple stents and CABG), PAD s/p bilateral common iliac stents, TIA, bilateral carotid stenosis, ESRD on HD MWF, atrial fibrillation diagnosed in Jul 2024, systolic and diastolic CHF, COPD, GERD and other medical problems who presents with intermittent chest pain x 2 weeks and admitted for atrial fibrillation with RVR #A fib with RVR #c/f tachybrady syndrome #new diagnosis as of 07/21 Rate improved in ER after 5mg IV Lopressor from 110s now 100 In setting of a few mised doses of Carvedilol 25mg BID in the 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 Cards evaled, carvedilol 37.5 mg twice daily. c/w DAPT. C/w hydralazine, amlodipine, and isosorbide dinitrate. Recommend holding isosorbide for SBP less than 120mmHg, and diastolic blood pressure less than 60mmHg as outpatient. Altered mentation: noted to be confused, difficult to arouse in AM of 09/23, no focal neurological s/s noted, pt denied any numbness/tingling/vision problem/headache. likely delirium iso hospitalization in a patient w/ ESRD and other significant comorbidities. Delirium precaution, CT head neg for acute intracranial findings. Pt's son was updated 09/23 about his mentation changes and plan of care, he voiced understanding. Patient is back to baseline mentation today. #obstructive CAD s/p CABG 1996, CHARMAINE 2018 #Chest pain #Elevated troponin, likely multifactorial iso rvr and known CAD History of complex CAD history including multiple stents and CABG Intermittent pain x 2 weeks, more severe today following dialysis Pain resolved after 1 dose of nitro en route to hospital Received 325 mg aspirin, trop trend was flat. Continue statin, carvedilol, isosorbide/hydralazine Cards evaled. d/w cardio 09/22, maintain Hb atleast above 8, favorable above 10. #PAD s/p bilateral common iliac stents: c/w DAPT. #ESRD on HD MWF : getting dialysis today, nephro on board. Continue Velphoro TIDM. If still in hosptial and Hb < 10, consider 1 unit prbc transfusion with next dialysis tomorrow. #Anemia of chronic disease Has been receiving IV iron infusions as outpatient Per recent cards communication, recommend hgb >10 given CAD Monitor HnH, received procrit 09/22. #Chronic heart failure with preserved EF Appears euvolemic following HD today CXR with small right pleural effusion, appears decreased DVT Ppx: SC heparin Code status: DNR/DNI PCP: Liu Dispo: admitted to PCU, 2 step test tomorrow, possible dc [facility] O[facility] ([facility] CM assisting w/ DC plan. Likely prbc transfusion w/ HD vilma. Admission and Anticipated Discharge Date Admission Date: September 20, 2024 Subjective Patient was seen and examined at bedside. Patient was lying in bed, on 1 L oxygen via nasal cannula, NAD, resting c omfortably. Patient reports he is generally doing okay, denies shortness of breath, moved his bowels last yesterday. Patient denies any numbness or tingling or headache or vision changes. Patient denies any focal weakness. Physical Exam Physical Exam: Constitutional: WD/WN, vitals as a sid. No focal susan rological s/s. Respiratory: normal respiratory effort, lungs arcelia ar to auscultation Cardiovascular: RRR, no murmur, no edema Results & Data Results & Data Vital Signs (Past 12 Hours) Vital Signs Temp Pulse Pulse Pulse Resp BP BP 09/24/24 11:30 36.7 C 51 L 17 135/53 L 09/24/24 10:59 59 L 09/24/24 09:00 62 164/63 H 09/24/24 07:08 36.7 C 60 16 173/79 H 09/24/24 06:58 09/24/24 04:13 153/70 H 09/24/24 03:40 36.5 C 58 L 18 177/77 H 09/23/24 23:54 70 166/68 H 09/23/24 23:39 36.7 C 65 18 183/77 H Pulse Ox O2 Del Method O2 Flow Rate 09/24/24 11:30 94 Nasal Cannula 1 09/24/24 10:59 09/24/24 09:00 09/24/24 07:08 95 Room Air 09/24/24 06:58 Nasal Cannula 1 09/24/24 04:13 09/24/24 03:40 95 Nasal Cannula 09/23/24 23:54 93 Nasal Cannula 1 09/23/24 23:39 96 Room Air 1.0 (2) Chest pain Chest pain type: unspecified Qualified Code(s): R07.9 - Chest pain, unspecified
--- NOTE | 2024-09-24 14:33 | Nephrology Progress Note ---
Date of Service September 24, 2024 Assessment & Plan (1) ESRD (end stage renal disease) on dialysis: Plan: had CKD and then started On Dialysis after ROSALBA. Gets Dialysis MWF at the [facility] D[facility] unit---Non [facility] there. No E/o fluid overload currently but he is at risk with Afibb/RVR and His Cardiac History. Electrolytes are fine. Planning to Do dialysis Wednesday for 3.5hrs, UF 1 litre (2) Atrial fibrillation with rapid ventricular response: Plan: patient is now rate controlled. Plan Time spent 48 mins Admission and Anticipated Discharge Date Admission Date: September 20, 2024 Subjective seen for ESRD. No shortness of breath or leg swelling. Blood pressures been stable. Review of Systems 2 Review of Systems: All other systems were reviewed and negative except as noted in HPI Physical Exam 2 Physical Exam: General exam: Appears comfortable, no acute distress HEENT: Pupils are equal and reactive to light Neck: No JVD, neck is supple trachea is midline Respiratory system: Clear breath sounds bilaterally. Gastrointestinal: Abdomen is soft, non distended, non tender, bowel sounds are present CVS: Regular rate and rhythm. No murmurs, rubs or gallops Musculoskeletal: No joint or muscle tenderness Extremities: Non tender, no edema, peripheral pulses are present Neuro: Oriented, no tremors, no focal neurological deficits Skin: No rashes Results & Data Vital Signs (Past 12 Hours) Vital Signs Temp Pulse Pulse Pulse Resp BP BP 09/24/24 14:19 64 133/57 L 09/24/24 13:51 56 L 09/24/24 11:30 36.7 C 51 L 17 135/53 L 09/24/24 10:59 59 L 09/24/24 09:00 62 164/63 H 09/24/24 07:08 36.7 C 60 16 173/79 H 09/24/24 06:58 09/24/24 04:13 153/70 H 09/24/24 03:40 36.5 C 58 L 18 177/77 H Pulse Ox O2 Del Method O2 Flow Rate 09/24/24 14:19 09/24/24 13:51 09/24/24 11:30 94 Nasal Cannula 1 09/24/24 10:59 09/24/24 09:00 09/24/24 07:08 95 Room Air 09/24/24 06:58 Nasal Cannula 1 09/24/24 04:13 09/24/24 03:40 95 Nasal Cannula Laboratory Results 09/24/24 05:59 09/24/24 05:59 WBC 5.32 RBC 2.86 L MCV 95.8 MCH 32.2 MCHC 33.6 RDW Std Deviation 56.6 H RDW Coeff of Jessica 16.1 H Plt Count 179 MPV 9.8
[2024-09-25 06:30] LABS: Hematocrit (blood only) 27.8 % (42.0-52.0); Hemoglobin 9.4 g/dl (14.0-18.0)
[2024-09-25 06:51] LABS: BUN Creatinine Ratio 5.7 (10-20); Calcium 9.3 mg/dl (8.6-10.3); Creatinine Clr Calc Pharmacy 6.8 ml/min; Potassium 4.6 mmol/L (3.5-5.1)
[2024-09-25] MEDS ORDERED: SODIUM CHLORIDE 0.9% 100 ML IV PRN (08:34)
[2024-09-25] MEDS ORDERED: SODIUM CHLORIDE 0.9% 50 ML IV PRN (08:34)
[2024-09-25] MEDS ORDERED: EPOETIN ALFA 10,000 UNITS in SYRINGE 0 ML IV SCH (11:15)
[2024-09-25] MEDS: HEPARIN SOD (PORCINE) 1000 UNIT/ML IV SCH (12:05)
[2024-09-25] MEDS: HEPARIN SOD (PORCINE) 1000 UNIT/ML IV ONE (12:05)
[2024-09-25] MEDS: EPOETIN ALFA 10,000 UNITS/ML VIAL IV ONE (12:06)
[2024-09-25 13:12] VITALS: BP 146/66; TEMP 98.2
[2024-09-25 13:51] VITALS: PULSE 67; RESP 19; O2SAT 96
--- NOTE | 2024-09-25 13:53 | Discharge Summary ---
Date of Service September 25, 2024 Admission HPI Per Admitting Provider This is an 89yo M with a complex PMH of CAD (s/p multiple stents and CABG), PAD s/p bilateral common iliac stents, TIA, bilateral carotid stenosis, ESRD on HD MWF, atrial fibrillation diagnosed in Jul 2024, systolic and diastolic CHF, s/p left kidney cryoablation, COPD, GERD and other medical problems who presents with intermittent chest pain x 2 weeks. Patient was recently admitted to our service from 07/09-07/27 for worsening CKD and was started on hemodialysis with catheter placement on 07/21. During that admission, was also found to be in new onset A-fib with RVR but converted to sinus rhythm and Dr. Armenta comfortable with continuing DAPT without anticoagulation unless recurrent events. Was discharged on Coreg 25 mg twice daily. Also had abdominal pain with imaging revealing gallstones but HIDA scan was negative for acute cholecystitis and patient was deemed a poor elective surgical candidate at that time. Patient was discharged to assisted living at [facility] in [place]. Has been doing well and underwent dialysis earlier today. Upon return to facility, developed chest pain around 1500 with associated gas pains. Nitroglycerin was given en route to ED and pain subsided. Patient still comfortable at rest. Per report given by family at bedside (son works at [employer]) and review of facility medication list, patient's Coreg dose was held for the past 2 days due to dose instructions followed by the med techs at the facility. Per review of chart, Dr. Hatfield wanted hold parameters for hydralazine and Norvasc only (to hold medication if SBP <130 or DBP <80) but those holds had been applied to Coreg and Isosorbide as well, resulting in missed doses of both in the past few days. Did received Coreg 25mg dose this AM. Currently, patient is resting comfortably. No fever, chills, lightheadedness, chest pain, palpitations, shortness of breath, nausea, vomiting, abdominal pain, diarrhea or constipation. Limited urine output in setting of ESRD. Admission Exam Per Admitting Provider General Appearance: WD/WN, vitals as above, NAD, sitting up in bed, pleasant, elderly male Head: normocephalic, atraumatic Eyes: normal inspection, PERRL, conjunctivae normal, anicteric sclerae ENT: hard of hearing, external ear and nose normal, oropharynx normal Neck: normal visual inspection, trachea midline, no thyromegaly Respiratory: normal respiratory effort, lungs clear to auscultation, no wheeze, rales, rhonchi. No accessory muscle use Cardiovascular: irregular rate & rhythm, normal peripheral pulses, no BLE edema. Vessels: no JVD Chest: normal inspection of chest, Dialysis catheter R chest, no surrounding erythema Abdomen/GI: normal bowel sounds, soft, nontender, no hepatosplenomegaly Extremities/Musculoskeletal: no cyanosis or clubbing, extremities motor strength 5/5 Neurologic: PERRL, EOMI, accommodation nl, no face palsy, no dysarthria, CN's II-XI intact bilaterally and moves all extremities Psychiatric: A+Ox3, euthymic affect Skin: no rashes, normal color, warm/dry Principal Diagnosis Atrial fibrillation with rapid ventricular response Chest pain Discharge Exam Constitutional: WD/WN, vitals as above. No focal neurological s/s. Respiratory: normal respiratory effort, lungs clear to auscultation Cardiovascular: RRR, no murmur, no edema Discharge Data Allergies Allergy/AdvReac Type Severity Reaction Status Date / Time ciprofloxacin [From Cipro] AdvReac Vomiting Verified 09/19/20 10:27 Iodinated Contrast Media AdvReac Unknown Verified 09/19/20 10:27 Consultations 09/20/24 17:20 ED Decision to Admit Stat 09/20/24 17:45 Consult Nephrology Routine 09/20/24 18:44 Consult Cardiology Routine Ordered Studies 09/23/24 13:17 CT head/brain wo con Urgent Hospital Course (1) Atrial fibrillation with rapid ventricular response: (2) Chest pain: (3) BPH with urinary obstruction: (4) Hypertension, uncontrolled: (5) ESRD (end stage renal disease) on dialysis: (6) CHF (congestive heart failure): (7) Anemia: Plan 89yo M with a complex PMH of CAD (s/p multiple stents and CABG), PAD s/p bilateral common iliac stents, TIA, bilateral carotid stenosis, ESRD on HD MWF, atrial fibrillation diagnosed in Jul 2024, systolic and diastolic CHF, COPD, GERD and other medical problems who presents with intermittent chest pain x 2 weeks and admitted for atrial fibrillation with RVR #A fib with RVR #c/f tachybrady syndrome #new diagnosis as of 07/21 Rate improved in ER after 5mg IV Lopressor from 110s now 100 In setting of a few mised doses of Carvedilol 25mg BID in the 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 Cards evaled, carvedilol 37.5 mg twice daily. c/w DAPT. C/w hydralazine, amlodipine, and isosorbide dinitrate. Recommend holding isosorbide for SBP less than 120mmHg, and diastolic blood pressure less than 60mmHg as outpatient. Altered mentation: noted to be confused, difficult to arouse in AM of 09/23, no focal neurological s/s noted, pt denied any numbness/tingling/vision problem/headache. likely delirium iso hospitalization in a patient w/ ESRD and other significant comorbidities. Delirium precaution, CT head neg for acute intracranial findings. Pt's son was updated 09/23 about his mentation changes and plan of care, he voiced understanding. Patient is back to baseline mentation and has been stable. #obstructive CAD s/p CABG 1996, CHARMAINE 2018 #Chest pain #Elevated troponin, likely multifactorial iso rvr and known CAD History of complex CAD history including multiple stents and CABG Intermittent pain x 2 weeks, more severe today following dialysis Pain resolved after 1 dose of nitro en route to hospital Received 325 mg aspirin, trop trend was flat. Continue statin, carvedilol, isosorbide/hydralazine Cards evaled. d/w cardio 09/22, maintain Hb atleast above 8, favorable above 10. #PAD s/p bilateral common iliac stents: c/w DAPT. #ESRD on HD MWF : getting dialysis today, nephro on board. Continue Velphoro TIDM. d/w nephro , will do procrit again today and since Hb is gradually uptrending no need for prbc transfusion today. #Anemia of chronic disease Has been receiving IV iron infusions as outpatient Per recent cards communication, recommend hgb >10 given CAD Monitor Hn, received procrit 09/22. #Chronic heart failure with preserved EF Appears euvolemic following HD today CXR with small right pleural effusion, appears decreased DVT Ppx: SC heparin Code status: DNR/DNI PCP: Liu Patient passed two-step test, no oxygen requirement with activity. Patient's son Eulogio was given a phone call and updated on plan of care. Patient is being discharged with following instructions at the point of discharge: Follow-up with your primary care physician within a week time and likely you will need labs CBC/CMP/magnesium/phosphorus. Follow-up with your nephrology in 2 to 4 weeks time upon discharge, follow-up with your dialysis. Follow-up on your hemoglobin level within a week time (coordinate with your PCP office to set up the test). Cardiology evaluated you while in hospital, your Coreg dose has been increased to 37.5 mg twice daily. Continue with aspirin and Plavix. Continue your other blood pressure medications including hydralazine, amlodipine, isosorbide dinitrate. Holding parameters for isosorbide and coreg are as follows: * Recommend holding isosorbide for SBP less than 120mmHg, and diastolic blood pressure less than 60mmHg as outpatient. * Recommend holding coreg for HR < 55 bpm Follow up with your cardiology in 2-4 weeks time upon discharge. Take your medications as prescribed. Please make sure that you are able to get your medications today by calling your pharmacy before you leave the hospital so that your treatment continuity is not broken. Home Health Attestation I certify that this patient is under my care and that I, or a physicians pathologist assistant working with me, had a face to-face encounter that meets the home health [id number] encounter requirements with this patient. The encounter with the patient was in whole, or in part, for the following medical condition, which is the primary reason for home health care (list medical condition): I certify that, based on my findings, the following services are medically necessary home health services: My clinical findings support the need for the above services because: Further, I certify that my clinical findings support that this patient is homebound (i.e. absences from home require considerable and taxing effort and are for medical reasons or jainism services or infrequently or of short duration when for other reasons) because: Certification for Home Health Services: Based on the above findings, I certify that this patient is confined to the home and needs intermittent long term care, physical therapy and/or speech therapy or continues to need occupational therapy. The patient is under my care, and I have initiated the establishment of the plan of care. This patient will be followed by a physician who will periodically review the plan of care. Total Time Total Time Spent Total Time Spent (In Minutes): 40 Discharge Plan Discharge Items Patient Disposition: Home - Self-Care Reason For Visit: A FIB WITH RVR, CP Discharge Diagnosis: Atrial fibrillation with rapid ventricular response Chest pain Activity: Resume your previous activity Non-emergency contact: Primary Care Provider Call non-emergency contact if: you have any medication questions and your symptoms worsen Follow-up/Referrals: Sunny Hatfield DO [Primary Care Provider] - (Date & Time 09/28/2024 3:00 PM Provider: Sunny Hatfield DO [facility] ) Diet: Heart Healthy Addtl Attending Provider Instructions: Follow-up with your primary care physician within a week time and likely you will need labs CBC/CMP/magnesium/phosphorus. Follow-up with your nephrology in 2 to 4 weeks time upon discharge, follow-up with your dialysis. Follow-up on your hemoglobin level within a week time (coordinate with your PCP office to set up the test). Cardiology evaluated you while in hospital, your Coreg dose has been increased to 37.5 mg twice daily. Continue with aspirin and Plavix. Continue your other blood pressure medications including hydralazine, amlodipine, isosorbide dinitrate. Holding parameters for isosorbide and coreg are as follows: * Recommend holding isosorbide for SBP less than 120mmHg, and diastolic blood pressure less than 60mmHg as outpatient. * Recommend holding coreg for HR < 55 bpm Follow up with your cardiology in 2-4 weeks time upon discharge. Take your medications as prescribed. Please make sure that you are able to get your medications today by calling your pharmacy before you leave the hospital so that your treatment continuity is not broken. Pending Studies at Discharge: No Stand-Alone Forms: [facility] [employer], Smoking Cessation Medications and DC Order Prescriptions: New carvedilol 12.5 mg Tablet 37.5 mg PO BIDM 21 Days Qty: 126 0RF Continued fluticasone propion-salmeterol [Advair Diskus] 250-50 mcg/dose Blister With Device 1 inh INHALATION BID acetaminophen [Tylenol] 325 mg Tablet 325 mg PO QID PRN (Reason: Pain) clopidogrel [Plavix] 75 mg Tablet 75 mg PO QAM amlodipine [Norvasc] 5 mg Tablet 5 mg PO BID aspirin 81 mg Tablet,Delayed Release (Dr/Ec) 81 mg PO BID tamsulosin 0.4 mg Capsule 0.4 mg PO QPM pantoprazole [Protonix] 40 mg Tablet,Delayed Release (Dr/Ec) 40 mg PO QAM nitroglycerin [Nitrostat] 0.4 mg Tablet, Sublingual 0.4 mg sublingual UD PRN (Reason: Chest Pain) albuterol 90 mcg/actuation Aerosol 90 mcg INHALATION UD PRN (Reason: sob) finasteride 5 mg Tablet 5 mg PO QAM rosuvastatin [Crestor] 20 mg Tablet 20 mg PO QPM hydralazine 10 mg tablet 10 mg PO TID isosorbide dinitrate 5 mg tablet 5 mg PO TID mirtazapine 30 mg tablet 30 mg PO HS Qty: 30 0RF Velphoro 500 mg tablet,chewable 500 mg PO TIDM docusate sodium 100 mg Tablet 100 mg PO HS Discontinued carvedilol 25 mg Tablet 25 mg PO BIDM Qty: 60 0RF Discharge Orders: Discharge Order (Routine); Ordered 09/25/24 Ordered By: Herberth Tobar Admission Data Admit Date/Time: 09/20/24 17:45 Attending Provider: Herberth Tobar Admit Provider: Dimitris Espinoza Primary Care Provider: Sunny Hatfield Other Providers: Prasanna Ruiz; Jim Weldon; Dimitris Espinoza; [facility]
--- NOTE | 2024-09-25 14:03 | Nephrology Progress Note ---
Date of Service September 25, 2024 Assessment & Plan (1) ESRD (end stage renal disease) on dialysis: Plan: had CKD and then started On Dialysis after ROSALBA. Gets Dialysis MWF at the [facility] Dialysis unit---Non [facility] cashier self service gasoline there. No E/o fluid overload currently but he is at risk with Afibb/RVR and His Cardiac History. Electrolytes are fine. patient is tolerating dialysis today. He is planned for 3-1/2 hours target UF 1.5 L. next dialysis will be Wednesday. (2) Atrial fibrillation with rapid ventricular response: Plan: patient is now rate controlled. (3) Anemia: Plan: Patient with a anemia of renal disease. We will give him Procrit [id number] units today with dialysis. No need for blood transfusion unless hemoglobin is less than 7. Plan Time spent 48 mins . Discussed case with the hospitalist Dr. Tobar Who agrees with holding off blood transfusion and treating with Procrit today Admission and Anticipated Discharge Date Admission Date: September 20, 2024 Subjective Seen for ESRD. He feels better today. No shortness of breath or leg swelling. Blood pressure is stable. Patient will be dialyzed today Review of Systems 2 Review of Systems: All other systems were reviewed and negative except as noted in HPI Physical Exam 2 Physical Exam: General exam: Appears comfortable, no acute distress HEENT: Pupils are equal and reactive to light Neck: No JVD, neck is supple trachea is midline Respiratory system: Clear breath sounds bilaterally. Gastrointestinal: Abdomen is soft, non distended, non tender, bowel sounds are present CVS: Regular rate and rhythm. No murmurs, rubs or gallops Musculoskeletal: No joint or muscle tenderness Extremities: Non tender, no edema, peripheral pulses are present Neuro: Oriented, no tremors, no focal neurological deficits Skin: No rashes Results & Data Vital Signs (Past 12 Hours) Vital Signs Temp Pulse Pulse Pulse Pulse Pulse Pulse 09/25/24 13:48 36.8 C 67 59 L 57 L 09/25/24 13:33 53 L 61 09/25/24 13:09 36.8 C 59 L 09/25/24 13:00 36.6 C 57 L 09/25/24 12:30 57 L 09/25/24 12:00 56 L 09/25/24 11:30 59 L 09/25/24 11:00 61 09/25/24 10:30 60 09/25/24 10:00 56 L 09/25/24 09:30 57 L 09/25/24 09:21 61 09/25/24 09:16 36.5 C 64 09/25/24 07:47 36.3 C L 67 09/25/24 07:13 65 09/25/24 05:28 09/25/24 03:38 36.6 C 56 L Resp Resp Resp BP BP BP Pulse Ox 09/25/24 13:48 19 146/66 H 96 09/25/24 13:33 18 16 09/25/24 13:09 19 146/66 H 96 09/25/24 13:00 155/75 H 09/25/24 12:30 142/68 H 09/25/24 12:00 133/62 09/25/24 11:30 136/67 09/25/24 11:00 141/67 H 09/25/24 10:30 141/71 H 09/25/24 10:00 152/68 H 09/25/24 09:30 155/74 H 09/25/24 09:21 152/88 H 09/25/24 09:16 09/25/24 07:47 19 173/74 H 93 09/25/24 07:13 09/25/24 05:28 147/70 H 09/25/24 03:38 16 177/76 H 94 Pulse Ox Pulse Ox O2 Del Method O2 Flow Rate 09/25/24 13:48 09/25/24 13:33 93 95 09/25/24 13:09 Nasal Cannula 2 09/25/24 13:00 09/25/24 12:30 09/25/24 12:00 09/25/24 11:30 09/25/24 11:00 09/25/24 10:30 09/25/24 10:00 09/25/24 09:30 09/25/24 09:21 09/25/24 09:16 09/25/24 07:47 Nasal Cannula 1 09/25/24 07:13 09/25/24 05:28 09/25/24 03:38 Nasal Cannula 3 Laboratory Results 09/25/24 06:10
== END 2024-09-25 15:35 | disposition home or self-care (01) | DRG 308 ==
LOC: ED 15:54 → EDINP 17:45 → SUATTDRO 17:45 → 2E 20:09

== ENCOUNTER 2024-11-07 05:40 | Inpatient (IN) ==
--- OUTSIDE RECORDS SUMMARY | 2024-11-07 05:49 | External Medical Summary | Summary of Care ---
Author Name Unknown Organization [facility] Address [address] [place] [address] Phone [phone] Care Team Providers Care Engineer System Administrator Name Role Phone Sunny Hatfield Primary Care Provider Reason for Visit * Reason Onset Date Comments Appointment 10/05/2024 Encounter Details Date Type Department Care Team (Late st Contact Info) Description 10/05/2024 Telephone Vascular Surg [facility] [address] [place] [address] Services, Scheduling [address] [place] [address] Appointment Allergies Active Allergy Reactions Criticality Noted Date Comments Ciprofloxacin Nausea/vomiting 06/30/2012 Iodinated Contrast Media 01/31/2020 IVP DYE kidney issues documented as of this encounter (statuses as of 10/07/2024) Medications Fluticasone-Salmet carmelita 250-50 MCG/DOSE Inhalation Aerosol [...] for Wheezing. 18 g 6 06/27/20 Active Fluticasone-Salmet carmelita 250-50 MCG/ACT Inhalation Aerosol Powder Breath Activated Inhale 1 Puff by mouth in the morning and 1 Puff before bedtime. 1 Each 12 06/27/20 Active hydrALAZINE HCl 10 MG Oral Tablet (Apresoline) Take 1 Tablet by mouth in the morning and 1 Tablet at noon and 1 Tablet before bedtime. 310 Tablet 6 06/27/20 Active Metoprolol Succinate ER 25 MG Oral [...] by mouth at bedtime. 08/01/19 25 Active Pantoprazole Sodium 40 MG Oral Tablet Delayed Release (Protonix) TAKE 1 TABLET BY MOUTH IN THE MORNING 90 Tablet 09/13/19 25 Active Ondansetron 8 MG Oral Tablet DisintegratingIndi cations:Slow transit constipation Place 1 Tablet on tongue every 8 hours as needed for Nausea. dissolve on tongue. 30 Tablet 09/14/19 25 Active Polyethylene Glycol 3350 17 GM/SCOOP Oral Powder (MiraLax)Indicatio ns:Slow transit constipation Take 17 g by mouth as needed for Constipation. Dissolve one heaping tablespoon in 8 ounces of water or juice. 850 g 5 09/14/19 25 Active documented as of this encounter (statuses as of 10/07/2024) Active Problems Problem Noted Date Diagnosed Date [...] as of this encounter (statuses as of 10/07/2024) Resolved Problems Problem Noted Date Diagnosed Date Resolved Date Chronic kidney disease, stage 3b 08/30/2023 08/22/2024 Overview: Per CKD protocol Chronic renal impairment, stage 3b 08/05/2023 09/02/2023 Chronic renal insufficiency, stage III (moderate) 07/07/2019 09/02/2023 Overview: Per CKD protocol documented as of this encounter (statuses as of 10/07/2024) Immunizations Name Administration Dates Next Due COVID-19 mRNA, LNP-s, No Pre serve, 2-Dose Series (Moderna) 09/24/2020,08/20/2020 PPD 08/14/2024,07/31/2024 Pneumococcal Conjugate Vacci ne, 7 Valent 05/19/2004,05/19/1999 Pneumococcal Polysaccharide PPV23 (Pneumovax) 11/02/2018,04/01/2017 RSV Vac., Bivalent, Perfusio n F, Pf,0.5 Ml (Abrysvo) 07/28/2023 RSV Vac., Recomb, Adjuvant, PF,0.5 Ml (Arexvy) 07/28/2023 SARS-COV-2 (COVID-19) Vaccin e Unspecified 04/24/2022,10/16/2021,06/06/2021,09/22 Season Influenza, Quad, PF, Adjuvanted, 65+ Yrs, IM (FLUAD) 05/23/2024 Seasonal Influenza Vac., MDV , IM, 0.5 mL (Fluzone) 04/13/2020 Seasonal Influenza Virus Vac cine, Unspecified Formulation 05/24/2024,05/04/2023,04/30/2023,04/24,04/23/2021,05/03/2019,04/29/2018 ,04/18/2018,04/18/2017,04/01/2017,03/19,04/18/2016,04/18/2015, 4,04/18/2013,04/18/2012,05/19/2011,07/2008,04/18/2008,05/19/2007,04/18/20 06,05/19/2004,05/17/2003,06/02/2002, Seasonal Influenza, PF, 6 M & above, IM , (FluLaval or Fluzone) 04/30/2023 Seasonal Influenza, Quadriva lent Hd, 65+ Yrs 04/24/2022,04/23/2021,04/13/2020 Seasonal Influenza, Recombin ant, RIV4, PF, (Flublock) 05/03/2019,04/29/2018 TD - Tetanus/Diptheria (ADULT) 07/19/2002 Varicella Zoster Vaccine (Adult) 06/18/2013 Zoster Vaccine [...] doing errands alone such as visiting a doctor’s office or shopping? (15 years old or [...] encounter Miscellaneous Notes * Telephone Encounter - Ruben Garrido PA-C - 10/07/2024 10:09 AM EDT Noted, thank you * Telephone Encounter - Anna Mata OSA - 10/05/2024 4:45 PM EDT I called patient. He asked if phone call can be moved to Wednesday so he is home and not at dialysis. Scheduled. * Telephone Encounter - Ruben Garrido PA-C - 10/05/2024 4:33 PM EDT Please change pt's 9:10 AM 01/24/[address] Valencia from in-person to telemed. We will call pt on that time and date Thank you JOSE * Telephone Encounter - Delisa Johnson OSA - 10/05/2024 1:46 PM EDT Pt calling in, he needs to reschedule his appt with Dr. Valencia that is on 01/24. Pt has dialysis [id number]. No appts at [facility] with Dr. Valencia except for Wednesdays. Please assist in rescheduling. documented in this encounter Plan of Treatment Upcoming Encounters Date Type Department Care Team (Late st Contact Info) Description 01/09/2025 1:00 PM EDT Imaging Vascular Lab, [facility] 2nd [facility], [address] [place] [phone] 01/09/2025 2:00 PM EDT Imaging Vascular Lab, [facility] 2nd [facility] [address] [place] [phone] 01/09/2025 3:00 PM EDT Imaging Vascular Lab, [address], [place] [address] [place] [address] 01/23/2025 9:00 AM EDT Telemedicine Vascular Surg [facility] [address] [place] [address] Shilo Sim CRNP [address] [place] [address] Health Maintenance Due Date Last Done Comments Alpha-1 Antitrypsin 02/19/1953 Adult Wellness Visit 02/19/2002 DTap/Tdap Vaccines (1 - Tdap) 07/20/2002 07/19/2002 Pneumococcal Vaccine: 50+ Years (3 of 3 - PCV) 11/03/2019 11/02/2018, 04/01/2017 *COPD SEVERITY VERIFIED BY PFT 08/07/2023 COVID-19 Vaccine ( season) 2024 04/24/2022, 10/16/2021, 06/06/2021, Additional history exists Depression Screening 08/22/2025 08/22/2024 O2 ASSESSMENT COMPLETED IN PAST YEAR FOR COPD 08/22/2025 08/22/2024 Zoster Vaccines Completed 08/08/2020, 05/19, 06/18/2013 Albumin/Creatinine Ratio Discontinued 03/07/2024, 07/19 Influenza Vaccine (FLU shot) Completed 05/24/2024, 05/23/2024, 05/04/2023, Additional history exists HPV (Gardasil) Vaccine Aged [...] this encounter Medical Devices Implanted Type Area Urology Nurse Device Identifier Shelf Expiration Date Model / Serial / Lot Stent Viabahn [id number] 135cm - [id number] Implanted:06/19 by Francisca Pride MD at OR [facility] [place] [place] (Quantity not on file) [employer] [id number] 12/06/2021 [id number] / [id number] / [id number] Graft Stent Viab 7mmx7.5cm - [id number] Implanted:06/19 by Francisca Pride MD at OR [facility] [place] [place] (Quantity not on file) [employer] [id number] 01/26/2022 [id number] / [id number] / [id number] documented as of this encounter Advance Directives Documents on File Type Date Recorded Patient Assisted Living Home Director Expl anation POLST 09/05/2024 signed on 08/31 Advance Directives and Living Will 03/27/2014 LIVING WILL Power of Set Off Press Operator 03/27/2014 POWER OF A TTORNEY DURABLE HEALTH CARE POA * Full Code (Latest Code Status on File) Date Activated Date Inactivated Comments 07/07/2019 11:09 AM 07/08/2019 2:52 PM This orde r reflects the patients wishes and were consensually agreed upon. Care Teams Engineer System Administrator Relationship Specialty Start Date End Date Sunny Hatfield DO [address] [place] [address] PCP - General Family Medicine 08/05/23 documented as of this encounter
--- OUTSIDE RECORDS SUMMARY | 2024-11-07 05:49 | External Medical Summary | Summary of Care ---
Author Name Unknown Organization [facility] Address [address] [place] [address] Phone [phone] Care Team Providers Care Custodial Officer Name Role Phone Sunny Hatfield Primary Care Provider Reason for Visit * Reason Onset Date Comments Appointment 10/05/2024 Encounter Details Date Type Department Care Team (Late st Contact Info) Description 10/05/2024 Telephone Vascular Surg [facility] [address] [place] [address] Services, Scheduling [address] [place] [address] Appointment Allergies Active Allergy Reactions Criticality Noted Date Comments Ciprofloxacin Nausea/vomiting 06/30/2012 Iodinated Contrast Media 01/31/2020 IVP DYE kidney issues documented as of this encounter (statuses as of 10/06/2024) Medications Fluticasone-Salmet carmelita 250-50 MCG/DOSE Inhalation Aerosol [...] as of this encounter (statuses as of 10/06/2024) Active Problems Problem Noted Date Diagnosed Date [...] as of this encounter (statuses as of 10/06/2024) Resolved Problems Problem Noted Date Diagnosed Date Resolved Date Chronic kidney disease, stage 3b 08/30/2023 08/22/2024 Overview: Per CKD protocol Chronic renal impairment, stage 3b 08/05/2023 09/02/2023 Chronic renal insufficiency, stage III (moderate) 07/07/2019 09/02/2023 Overview: Per CKD protocol documented as of this encounter (statuses as of 10/06/2024) Immunizations Name Administration Dates Next Due COVID-19 [...] encounter Miscellaneous Notes * Telephone Encounter - Anna Mata OSA - 10/05/2024 4:45 PM EDT I called patient. He asked if phone call can be moved to Wednesday morning so he is home and not at [...] that is on 01/24. Pt has dialysis [id number]. No appts at [facility] with Dr. Valencia except for Wednesdays. Please assist in rescheduling. documented in this encounter Plan of Treatment Upcoming Encounters Date Type Department Care Team (Late st Contact Info) Description 01/09/2025 1:00 PM EDT Imaging Vascular Lab, [facility] 2nd [facility], [place] [address] [place] [phone] 01/09/2025 2:00 PM EDT Imaging Vascular Lab, [address], [place] [address] [place] [phone] 01/09/2025 3:00 PM EDT Imaging Vascular Lab, [address], [place] [address] [place] [phone] 01/23/2025 9:00 AM EDT Telemedicine Vascular Surg [facility], [place] [address] [place] [address] Shilo Sim CRNP [address] [place] [address] Health Maintenance Due Date Last Done Comments [...] this encounter Medical Devices Implanted Type Area Manufacturing Support Engineer Device Identifier Shelf Expiration Date Model / Serial / Lot Stent Viabahn [id number] 135cm - [id number] Implanted:06/19 by Francisca Pride MD at OR [facility] [place] (Quantity not on file) [employer] [id number] 12/06/2021 [id number] / [id number] / [id number] Graft Stent Viab 7mmx7.5cm - [id number] Implanted:06/19 by Francisca Pride MD at OR [facility] [place] (Quantity not on file) [employer] [id number] 01/26/2022 [id number] / [id number] / [id number] documented as of this encounter Advance Directives Documents on File Type Date Recorded Patient Filter Washer And Presser Expl anation POLST 09/05/2024 signed on 08/31 Advance Directives and Living Will 03/27/2014 LIVING WILL Power of Manager Sales 03/27/2014 POWER OF A TTORNEY DURABLE HEALTH CARE POA * Full Code (Latest Code Status on File) Date Activated Date Inactivated Comments 07/07/2019 11:09 AM 07/08/2019 2:52 PM This orde r reflects the patients wishes and were consensually agreed upon. Care Teams Custodial Officer Relationship Specialty Start Date End Date Sunny Hatfield DO [address] [place] [address] PCP - General Family Medicine 08/05/23 documented as of this encounter
--- OUTSIDE RECORDS SUMMARY | 2024-11-07 05:50 | External Medical Summary | Summary of Care ---
Author Name Unknown Organization [facility] Address [address] [place] [address] Phone [phone] Care Team Providers Care Television Announcer Name Role Phone Sunny Hatfield Primary Care Provider Reason for Visit * Reason Onset Date Comments Hospital Follow-Up 09/25/2024 Encounter Details Date Type Department Care Team (Late st Contact Info) Description 09/25/2024 Telephone Cardiology, [facility] [address] [place] [address] Yassine Mock PAAnias [address] [place], [place] [id number] Hospital Follow-Up Allergies Active Allergy Reactions Criticality Noted Date Comments Ciprofloxacin Nausea/vomiting 06/30/2012 Iodinated Contrast Media 01/31/2020 IVP DYE kidney issues documented as of this encounter (statuses as of 09/27/2024) Medications Fluticasone-Salmet carmelita 250-50 MCG/DOSE Inhalation Aerosol [...] THE MORNING 90 Tablet 08/14/19 25 Active Nitroglycerin 0.4 MG Sublingual [...] Nausea. dissolve on tongue. 30 Tablet 09/14/19 Active Polyethylene Glycol 3350 17 GM/SCOOP Oral Powder (MiraLax)Indicatio ns:Slow transit constipation Take 17 g by mouth as needed for Constipation. Dissolve one heaping tablespoon in 8 ounces of water or juice. 850 g 5 09/14/19 25 Active documented as of this encounter (statuses as of 09/27/2024) Active Problems Problem Noted Date Diagnosed Date [...] as of this encounter (statuses as of 09/27/2024) Resolved Problems Problem Noted Date Diagnosed Date Resolved Date Chronic kidney disease, stage 3b 08/30/2023 08/22/2024 Overview: Per CKD protocol Chronic renal impairment, stage 3b 08/05/2023 09/02/2023 Chronic renal insufficiency, stage III (moderate) 07/07/2019 09/02/2023 Overview: Per CKD protocol documented as of this encounter (statuses as of 09/27/2024) Immunizations Name Administration Dates Next Due COVID-19 [...] Telephone Encounter - Rivera Cox OSA - 09/27/2024 11:42 AM EDT Called patient, spoke with son, Eulogio Krishnan states his father has been admitted to Hospice and will not be attending the FU. * Telephone Encounter - Rivera Cox OSA - 09/25/2024 2:19 PM EDT Patient has been scheduled: Will call tomorrow. RETURN CARDIOLOGY at 2:30 PM (30 min)Arrive by 2:15 PM Friday October 25, 2024 Appointment Provider:Angie Mejia PA-C in CARDIOLOGY [facility] * Telephone Encounter - Emma Ramirez RN - 09/25/2024 1:58 PM EDT Manish Quinn was discharged from [facility] on 09/25/24. Cardiology evaluated you while in hospital, Follow up with your cardiology in 2-4 weeks time upon discharge. documented in this encounter Plan of Treatment Upcoming Encounters Date Type Department Care Team (Late st Contact Info) Description 09/28/2024 3:00 PM EDT Office Visit Family [facility] [address] [place] [address] Sunny Hatfield, [address] [place] [address] 01/09/2025 1:00 PM EDT Imaging Vascular Lab, [address], [place] [address] [place] [phone] 01/09/2025 2:00 PM EDT Imaging Vascular Lab, [address], [place] [address] [place] [phone] 01/09/2025 3:00 PM EDT Imaging Vascular Lab, [address], [place] [address] [place] [address] 01/24/2025 9:10 AM EDT Office Visit Vascular Surgery, [facility] [address] [place] [phone] Raimundo Valencia MD [address] [place], [place] [address] Health Maintenance Due Date Last Done Comments [...] this encounter Medical Devices Implanted Type Area Batch Mixing Truck Driver Device Identifier Shelf Expiration Date Model / Serial / Lot Stent Viabahn [id number] 135cm - [id number] Implanted:06/19 by Francisca Pride MD at OR [facility] [place] (Quantity not on file) [employer] [id number] 12/06/2021 [id number] / [id number] / [id number] Graft Stent Viab 7mmx7.5cm - [id number] Implanted:06/19 by Francisca Pride MD at OR [facility] [place] (Quantity not on file) [employer] [id number] 01/26/2022 [id number] / [id number] / [id number] documented as of this encounter Advance Directives Documents on File Type Date Recorded Patient Hourly Sales Staff Expl anation POLST 09/05/2024 signed on 08/31 Advance Directives and Living Will 03/27/2014 LIVING WILL Power of Cheese Specialist 03/27/2014 POWER OF A TTORNEY DURABLE HEALTH CARE POA * Full Code (Latest Code Status on File) Date Activated Date Inactivated Comments 07/07/2019 11:09 AM 07/08/2019 2:52 PM This orde r reflects the patients wishes and were consensually agreed upon. Care Teams Television Announcer Relationship Specialty Start Date End Date Sunny Hatfield DO [address] [place] [address] PCP - General Family Medicine 08/05/23 documented as of this encounter
--- OUTSIDE RECORDS SUMMARY | 2024-11-07 05:50 | External Medical Summary | Summary of Care ---
Author Name Unknown Organization [facility] Address [address] [place] [address] Phone [phone] Care Team Providers Care Raw Stock Drier Tender Name Role Phone Sunny Hatfield DO Primary Care Provider Reason for Visit * Reason Onset Date Comments Advice 09/27/2024 Encounter Details Date Type Department Care Team (Late st Contact Info) Description 09/27/2024 Telephone Family Practice [facility] [address] [place] [address] Sunny Hatfield DO [address] [place] [address] Advice Allergies Active Allergy Reactions Criticality Noted Date Comments Ciprofloxacin Nausea/vomiting 06/30/2012 Iodinated Contrast Media 01/31/2020 IVP DYE kidney issues documented as of this encounter (statuses as of 09/28/2024) Medications Fluticasone-Salmet carmelita 250-50 MCG/DOSE Inhalation Aerosol [...] Tablet by mouth at bedtime. 08/01/19 Active Pantoprazole Sodium 40 MG Oral Tablet [...] water or juice. 850 g 5 09/14/19 Active documented as of this encounter (statuses as of 09/28/2024) Active Problems Problem Noted Date Diagnosed Date [...] as of this encounter (statuses as of 09/28/2024) Resolved Problems Problem Noted Date Diagnosed Date Resolved Date Chronic kidney disease, stage 3b 08/30/2023 08/22/2024 Overview: Per CKD protocol Chronic renal impairment, stage 3b 08/05/2023 09/02/2023 Chronic renal insufficiency, stage III (moderate) 07/07/2019 09/02/2023 Overview: Per CKD protocol documented as of this encounter (statuses as of 09/28/2024) Immunizations Name Administration Dates Next Due COVID-19 [...] encounter Miscellaneous Notes * Telephone Encounter - Aileen Grewal RN - 09/27/2024 4:16 PM EDT POLST form 08/31/24 and durable health care power of criminal attorney faxed. * Telephone Encounter - Bessy Tuttle OSA - 09/27/2024 1:45 PM EDT Aleisha(#[phone]) calling from [facility], stated patient is forbidding dialysis and is requesting the DNR form that the family had filled out, stated family is wanting him to go on hospice. Please Fax form to [phone] documented in this encounter Plan of Treatment Upcoming Encounters Date Type Department Care Team (Late st Contact Info) Description 01/09/2025 1:00 PM EDT Imaging Vascular Lab, [address] [place] [phone] 01/09/2025 2:00 PM EDT Imaging Vascular Lab, [address] [place] [phone] 01/09/2025 3:00 PM EDT Imaging Vascular Lab, [address] [place] [address] 01/24/2025 9:10 AM EDT Office Visit Vascular Surgery, [facility] [address] [place] [phone] Raimundo Valencia MD [address] [place] [address] Health Maintenance Due Date Last Done Comments [...] this encounter Medical Devices Implanted Type Area Retail Product Demo Specialist Device Identifier Shelf Expiration Date Model / Serial / Lot Stent Viabahn [id number] 135cm - [id number] Implanted:06/19 by Francisca Pride MD at OR [facility] [place] (Quantity not on file) [employer] [id number] 12/06/2021 [id number] / [id number] / [id number] Graft Stent Viab 7mmx7.5cm - [id number] Implanted:06/19 by Francisca Pride MD at OR [facility] (Quantity not on file) [employer] [facility] [id number] 01/26/2022 [id number] / [id number] / [id number] documented as of this encounter Advance Directives Documents on File Type Date Recorded Patient Supervisor Pumping [employer] Priya PERRY 09/05/2024 signed on 08/31 Advance Directives and Living Will 03/27/2014 LIVING WILL Power of Online Communications Manager 03/27/2014 POWER OF A TTORNEY DURABLE HEALTH CARE POA * Full Code (Latest Code Status on File) Date Activated Date Inactivated Comments 07/07/2019 11:09 AM 07/08/2019 2:52 PM This orde r reflects the patients wishes and were consensually agreed upon. Care Teams Raw Stock Drier Tender Relationship Specialty Start Date End Date Sunny Hatfield DO [address] [place] [address] PCP - General Family Medicine 08/05/23 documented as of this encounter
--- OUTSIDE RECORDS SUMMARY | 2024-11-07 05:50 | External Medical Summary | Summary of Care ---
Author Name Unknown Organization [facility] Address [address] [place] [address] Phone [phone] Care Team Providers Care Theology Teacher Name Role Phone Sunny Hatfield Primary Care Provider Reason for Visit * Reason Onset Date Comments Hospital Follow-Up 09/25/2024 Encounter Details Date Type Department Care Team (Late st Contact Info) Description 09/25/2024 Telephone Cardiology, [facility] [address] [place] [address] Yassine Mock PA-C [address] [place], [place] [id number] Hospital Follow-Up Allergies Active Allergy Reactions Criticality Noted Date Comments Ciprofloxacin Nausea/vomiting 06/30/2012 Iodinated Contrast Media 01/31/2020 IVP DYE kidney issues documented as of this encounter (statuses as of 09/25/2024) Medications Fluticasone-Salmet carmelita 250-50 MCG/DOSE Inhalation Aerosol [...] as of this encounter (statuses as of 09/25/2024) Active Problems Problem Noted Date Diagnosed Date [...] as of this encounter (statuses as of 09/25/2024) Resolved Problems Problem Noted Date Diagnosed Date Resolved Date Chronic kidney disease, stage 3b 08/30/2023 08/22/2024 Overview: Per CKD protocol Chronic renal impairment, stage 3b 08/05/2023 09/02/2023 Chronic renal insufficiency, stage III (moderate) 07/07/2019 09/02/2023 Overview: Per CKD protocol documented as of this encounter (statuses as of 09/25/2024) Immunizations Name Administration Dates Next Due COVID-19 [...] 2024 Appointment Provider:Angie Mejia PA-C in CARDIOLOGY [facility] * Telephone Encounter - Emma Ramirez RN - 09/25/2024 1:58 PM EDT Manish Quinn was [facility] from [facility]. Cardiology evaluated you while in hospital, Follow up with your cardiology in 2-4 weeks time upon discharge. documented in this encounter Plan of Treatment Upcoming Encounters Date Type Department Care Team (Late st Contact Info) Description 09/28/2024 3:00 PM EDT Office Visit Family Practice [facility] [place] [address] Sunny Hatfield DO [address] [place] [address] 10/25/2024 2:30 PM EDT Office Visit Cardiology, [facility] [address] [place] [address] Angie Mejia PA-C [address] [place] [address] [place] [address] Health Maintenance Due Date Last Done Comments [...] this encounter Medical Devices Implanted Type Area Walking Dragline Oiler Device Identifier Shelf Expiration Date Model / Serial / Lot Stent Viabahn [id number] 135cm - [id number] Implanted:06/19 by Francisca Pride [place] [facility] [place] [employer] [id number] 12/06/2021 [id number] / [id number] / [id number] Graft Stent Viab 7mmx7.5cm - [id number] Implanted:06/19 by Francisca Pride MD [place] [facility] [place] [employer] [id number] 01/26/2022 [id number] / [id number] / [id number] documented as of this encounter Advance Directives Documents on File Type Date Recorded Patient Bottle Blower Priya PERRY 09/05/2024 signed on 08/31 Advance Directives and Living Will 03/27/2014 LIVING WILL Power of Patient Intake Representative 03/27/2014 POWER OF A TTORNEY DURABLE HEALTH CARE POA * Full Code (Latest Code Status on File) Date Activated Date Inactivated Comments 07/07/2019 11:09 AM 07/08/2019 2:52 PM This orde r reflects the patients wishes and were consensually agreed upon. Care Teams Theology Teacher Relationship Specialty Start Date End Date Sunny Hatfield DO [address] [place] [address] PCP - General Family Medicine 08/05/23 documented as of this encounter
--- OUTSIDE RECORDS SUMMARY | 2024-11-07 05:50 | External Medical Summary | Summary of Care ---
Author Name Unknown Organization [facility] Address [address] [place] [address] Phone [phone] Care Team Providers Care Pellet Machine Operator Name Role Phone Sunny Hatfield DO Primary Care Provider Reason for Visit * Reason Onset Date Comments Fax 09/22/2024 Encounter Details Date Type Department Care Team (Late st Contact Info) Description 09/22/2024 Telephone Family Practice [facility] [address] [place] [address] Sunny Hatfield DO [address] [place] [address] Fax Allergies Active Allergy Reactions Criticality Noted Date [...] encounter Miscellaneous Notes * Telephone Encounter - Oma Garcia MED ASSIST - 09/22/2024 12:02 PM EST Faxed information * Telephone Encounter - Nelson Palacios OSA - 09/22/2024 11:34 AM EST Caller requesting the following information to be faxed: Name/Company of caller: Gisele from [facility] Information requested to be faxed: Immunization Record Fax number: [phone] Attention to Name/Company: Any additional information?: documented in this encounter Plan of Treatment Upcoming Encounters Date Type Department Care Team (Late st Contact Info) Description 01/09/2025 1:00 PM EDT Imaging Vascular Lab, [address] [place] [address] 01/09/2025 2:00 PM EDT Imaging Vascular Lab, [address] [place] [address] 01/09/2025 3:00 PM EDT Imaging Vascular Lab, [address] [place] [address] 01/24/2025 9:10 AM EDT Office Visit Vascular Surgery, [facility] [address] [place] [address] Raimundo Valencia MD [address] [place] [address] Health Maintenance Due Date Last Done Comments [...] this encounter Medical Devices Implanted Type Area Liquid Sugar Fortifier Device Identifier Shelf Expiration Date Model / Serial / Lot Stent Viabahn [id number] 135cm - [id number] Implanted:06/19 by Francisca Pride MD at [place] [facility] ([place] not on file) [employer] [id number] 12/06/2021 [id number] / [id number] / [id number] Graft Stent Viab 7mmx7.5cm - [id number] Implanted:06/19 by Francisca Pride MD at [place] [facility] (Quantity not on file) [employer] [id number] 01/26/2022 [id number] / [id number] / [id number] documented as of this encounter Advance Directives Documents on File Type Date Recorded Patient Scrapper Priya PERRY 09/05/2024 signed on 08/31 Advance Directives and Living Will 03/27/2014 LIVING WILL Power of Cross Cut Saw Operator 03/27/2014 POWER OF A TTORNEY DURABLE HEALTH CARE POA * Full Code (Latest Code Status on File) Date Activated Date Inactivated Comments 07/07/2019 11:09 AM 07/08/2019 2:52 PM This orde r reflects the patients wishes and were consensually agreed upon. Care Teams Pellet Machine Operator Relationship Specialty Start Date End Date Sunny Hatfield DO [address] [place] [address] PCP - General Family Medicine 08/05/23 documented as of this encounter
--- OUTSIDE RECORDS SUMMARY | 2024-11-07 05:50 | External Medical Summary | Summary of Care ---
Author Name Unknown Organization [facility] Address [address] [place] [address] Phone [phone] Care Team Providers Care Gold Tooler Name Role Phone Sunny Hatfield Primary Care Provider Reason for Visit * Reason Onset Date Comments Appointment 10/05/2024 Encounter Details Date Type Department Care Team (Late st Contact Info) Description 10/05/2024 Telephone Vascular Surg [facility] [address] [place] [address] Services, Scheduling [address] [place] [address] Appointment Allergies Active Allergy Reactions Criticality Noted [...] that is on 01/24. Pt has dialysis [id number]. [facility] Valencia except for Wednesdays. Please assist in rescheduling. documented in this encounter Plan of Treatment Upcoming Encounters Date Type Department Care Team (Late st Contact Info) Description 01/09/2025 1:00 PM EDT Imaging Vascular Lab, [facility] [facility], [place] [address] [place] [address] 01/09/2025 2:00 PM EDT Imaging Vascular Lab, [address], [place] [address] [place] [address] 01/09/2025 3:00 PM EDT Imaging Vascular Lab, [address], [place] [address] [place] [phone] 01/23/2025 9:00 AM EDT Telemedicine Vascular Surg [facility] [place] [address] [place] [address] Shilo Sim CRNP [address] [place] [address] Health Maintenance Due Date Last Done Comments [...] encounter Medical Devices Implanted Type Area Dairy Laboratory Technician Device Identifier Shelf Expiration Date Model / Serial / Lot Stent Viabahn [id number] 135cm - [id number] Implanted:06/19 by Francisca Pride MD [place] [facility] [employer] [id number] 12/06/2021 [id number] / [id number] / [id number] Graft Stent Viab 7mmx7.5cm - [id number] Implanted:06/19 by Francisca Pride MD [place] [facility] [place] [employer] [id number] 01/26/2022 [id number] / [id number] / [id number] documented as of this encounter Advance Directives Documents on File Type Date Recorded Patient Solid Waste Facility Supervisor Expl anation POLST 09/05/2024 signed on 08/31 Advance Directives and Living Will 03/27/2014 LIVING WILL Power of Transportation Engineering Technician 03/27/2014 POWER OF A TTORNEY DURABLE HEALTH CARE POA * Full Code (Latest Code Status on File) Date Activated Date Inactivated Comments 07/07/2019 11:09 AM 07/08/2019 2:52 PM This orde r reflects the patients wishes and were consensually agreed upon. Care Teams Gold Tooler Relationship Specialty Start Date End Date Sunny Hatfield DO [address] [place] [address] PCP - General Family Medicine 08/05/23 documented as of this encounter
--- OUTSIDE RECORDS SUMMARY | 2024-11-07 05:50 | External Medical Summary | Summary of Care ---
Author Name Unknown Organization [facility] Address [address] [place] [address] Phone [phone] Care Team Providers Care Section Cutter Name Role Phone Sunny Hatfield Primary Care Provider Reason for Visit * Reason Comments Follow Up Encounter Details Date Type Department Care Team (Late st Contact Info) Description 01/12/2024 11:30 AM EDT Office Visit Vascular Surgery, [facility] [address] [place] [address] Hieu Colbert MD [address] [place] [address] Peripheral vascular disease (HCC)*; Asymptomatic [...] this encounter (statuses as of 10/06/2024) Medications Fluticasone-Oswaldo meterol 250-50 MCG/DOSE Inhalation Aerosol Powder Breath Activated 2 times a day. Active aspirin enteric coated 81 MG TBEC Take by mouth 2 times a day. Active acetaminophen (TYLENOL) 500 MG Tablet Take by mouth as needed. Active Simethicone 80 MG Oral Tablet Chewable Take 1 Tablet by mouth every 6 hours as needed for Gas. Active nitroglycerin (NITROSTAT) 0.4 MG SUBL 2 02/12/20 17 025 Discontinued(Re fill) Albuterol Sulfate HFA 108 (90 Base) MCG/ACT Inhalation Aerosol Solution daily as needed. 08/22/19 08 024 Discontinued(Re fill) Tamsulosin HCl 0.4 MG Oral Capsule (Flomax)Indicat [...] 30 Tablet 11 08/05/19 24 025 Discontinued Metoprolol Succinate ER 25 MG Oral Tablet Extended Release 24 Hour (toPROL XL) Take 1 Tablet by mouth in the morning. 90 Tablet 3 08/05/19 24 025 Discontinued amLODIPine Besylate 5 MG Oral Tablet (Norvasc) Take 1 Tablet by mouth in the morning. 90 Tablet 5 08/05/19 24 024 Discontinued Pantoprazole Sodium 40 MG Oral Tablet Delayed Release (Protonix)Indic ations:Gastroes ophageal reflux disease without esophagitis Take 1 Tablet by mouth daily. 180 Tablet 3 12/29/19 24 024 Discontinued(Re fill) documented as of this encounter (statuses as [...] No 08/22/2024 Does the household have a [email or web address] source of income? (Household - for ages [...] documented in this encounter Progress Notes * Ruben Garrido PA-C - 01/12/2024 11:10 AM EDT Date of Service: 01/11/2024 9:17 PM Manish Quinn is a 88 year old male. Referring Physician: Bandar Carnes DO Anesthesiology Fellow, Dr. Mancilla, [facility]. Chief Complaint: Annual surveillance of PAD [...] PAD and carotid disease. Previously followed by [facility], until his vascular surgeon left the system and he transferred care to [facility] Surgery in 2019. PAD: S/P bilateral common iliac artery stenting by Dr. Pham at [facility] 06/09/2011 for low back and hip discomfort with ambulation. Post operatively he states that his symptoms were relieved. He developed recurrence in 2018 and eventually underwent abdominal aortogram, left lower extremity angiogram, percutaneous ultrasound guided left brachial access, balloon angioplasty left NAN/EIA with 5 then 7 x 200 mm Kirkwood balloon, Left NAN stent placement with 7 x 79 mm VBX, postdilated with 10 x 80 mm Kirkwood balloon, Left EIA stent placement with 7 x 75 mm Viabahn post-dilated with 7 x 200mm Kirkwood balloon on 07/07/[address] Pride. performed [...] performed by Francisca Pride MD at [place] [facility] CARDIAC CATH SCANNED RESULT 09/28/2003 2 Cypher drug eluding cardiac stents COLONOSCOPY, DIAGNOSTIC (RECTUM) 04/02/2017 inflammation on bx, diverticulosis/COLONOSCOPY FLEXIBLE PROXIMAL DIAGNOSTIC performed by Marika Olivarez DO at ENDOSCOPY [facility] EGD, FLEXIBLE, DIAGNOSTIC 07/01/2012 UPPER GI ENDOSCOPY DIAGNOSTIC performed by Marika Olivarez DO at [facility] EGD, FLEXIBLE, DIAGNOSTIC 08/24/2013 ESOPHAGOGASTRODUODENOSCOPY (EGD), FLEXIBLE, TRANSORAL, DIAGNOSTIC performed by Marika Olivarez DO at [facility] EGD, FLEXIBLE, DIAGNOSTIC 12/21/2014 mild gastritis, HH/ESOPHAGOGASTRODUODENOSCOPY (EGD), FLEXIBLE, TRANSORAL, DIAGNOSTIC performed by Marika Olivarez DO at ENDOSCOPY [facility] EGD, FLEXIBLE, DIAGNOSTIC 06/25/2016 HH, normal/ESOPHAGOGASTRODUODENOSCOPY (EGD), FLEXIBLE, TRANSORAL, DIAGNOSTIC performed by Marika Olivarez DO at ENDOSCOPY [facility] EGD, FLEXIBLE, DIAGNOSTIC 04/02/2017 inflammation/ESOPHAGOGASTRODUODENOSCOPY (EGD), FLEXIBLE, TRANSORAL, DIAGNOSTIC performed by Marika Ellis DO at ENDOSCOPY [facility] EGD, FLEXIBLE, DIAGNOSTIC 09/19/2020 Abnormal esophageal motility, hiatal hernia / [facility] FEM/POP ARTERY REVASC W/ STENT+ANGIOPLASTY Left 07/07/2019 FEM/POP ARTERY REVASC W/ STENT+ANGIOPLASTY performed by Francisca Pride MD at OR [facility] INFORMATION Left 07/30/2010 cryoablation left kidney IR ARTERIOGRAM EXTREMITY UNILATERAL Left 07/07/2019 IMAGING SUPERVISION & INTERPRETATION EXTREMITY UNILATERAL performed by Francisca Pride MD at OR [facility] LUMBAR / SACRAL EPIDURAL, SINGLE LEVEL 10/27/2013 INJECTION TRANSFORAMINAL EPIDURAL LUMBAR OR SACRAL performed by Margarito Lyon, DO at OR [facility] REMOVE CATARACT, INSERT LENS PROSTH OU-Dr. Juan SACROILIAC JOINT INJECT W/GUIDANCE 05/08/2019 INJECTION SACROILIAC JOINT performed by Margarito Lyon, DO at OR [facility] SACROILIAC JOINT INJECT W/GUIDANCE 06/01/2019 INJECTION SACROILIAC JOINT performed by Margarito Lyon, DO at OR [facility] SACROILIAC JOINT INJECT W/GUIDANCE 04/04/2020 INJECTION SACROILIAC JOINT performed by Margarito Lyon, DO at OR [facility] SACROILIAC JOINT INJECT W/GUIDANCE 05/13/2020 INJECTION SACROILIAC JOINT performed by Margarito Lyon, DO at OR [facility] SACROILIAC JOINT INJECT W/GUIDANCE 02/06/2021 INJECTION SACROILIAC JOINT performed by Margarito Lyon, DO at OR [facility] SACROILIAC JOINT INJECT W/GUIDANCE 04/15/2022 INJECTION SACROILIAC JOINT performed by Margarito Lyon, DO at OR [facility] Family History Problem Relation Name Age of [...] CABG/PCIs, PCI (2 coronary stents 03/2019 at [facility]). Respiratory: denies shortness of breath, reports [...] Palpable; 0=Absent DIAGNOSTIC STUDIES: 01/04/24 DOMINGO: 0.60/0.79 01/04/24 Carotid Duplex: CHAY 489/151, LICA 87/17, ante [...] R>L.Ascending Aorta 4.1 cm, on axial view 11/30/22 ADDENDUM: 11/26/2022 CT Head/Neck w/o contrast - [...] be evaluated on the follow-up PET CT. 11/04/22 Carotid Duplex CHAY 442/115 and LICA 87/25. 11/04/22 BLE Art Duplex: RLE: EIA 48, POULTRY OFFAL WORKER 40, DFA 29, SFA 210/51/36/24, Pop 26, TPT 19. LLE: EIA 244, POULTRY OFFAL WORKER 333, DFA 108, SFA 157/54/54/38, Pop 40, TPT 31. 11/04/22 DOMINGO .56/.79. 10/07/20: DOMINGO: .56/1 10/07/20: Art duplex: R NAN UI, R EIA 61, R POULTRY OFFAL WORKER (plaque) 40, R SFA 78, Prox 114, mid 38, dist 41, pop 24, L NAN UI, L EIA 149, L POULTRY OFFAL WORKER 242, L DFA 206, Left SFA 338/79/69, [...] left .59 at rest/.64 with exercise 08/03/18 [facility] [place]: DOMINGO: .81/.71 08/03/18: [facility] Carotid duplex: CHAY 215/84, LICA 68/21. [...] 07/07/2019 12:04 PM CREATININE, RANDOM URINE - [facility] 77 08/05/2023 11:45 AM CREATININE-OUTSIDE LAB 2.22 (H) 04/24/2022 09:20 AM CREATININE-OUTSIDE LAB 1.92 (H) 12/23/2021 08:34 AM CREATININE-OUTSIDE LAB 2.10 (H) 10/16/2021 08:57 AM Lab Results Component Value Date/Time LDL CHOLESTEROL (CALCULATED) - [facility] 46 08/05/2023 11:37 AM LDL CHOLESTEROL-OUTSIDE LAB [...] with 5 then 7 x 200 mm Kirkwood balloon, Left NAN stent placement with 7 x 79 mm VBX, postdilated with 10 x 80 mm Kirkwood balloon, Left EIA stent placement with 7 x 75 mm Viabahn post-dilated with 7 x 200 mm Kirkwood balloon on 07/07/[address] Pride. perform ed for severe left leg claudication, and likely left foot ischemic rest pain. Rest pain and claudication resolved post op. S/P bilateral common iliac artery stenting by Dr. Pham at [facility] 06/09/2011 for low back and hip discomfort with ambulation; symptoms relieved post op and recurred 2017. (started on Plavix by [facility] Ananda) CAD with PCI . CABG x 3 1996. HTN. Dyslipidemia. Reformed smoker. CKD stage III/IV. H/O cryoablation of the L kidney for Renal CA 2010 at [facility]. Atrophic left kidney. H/O DDD/spinal stenosis. PLAN: [...] age and significant comorbidities: CAD with PCI 2003/2016/2018. CABG x 3 1996. HTN. Dyslipidemia. Reformed smoker. CKD stage III/IV. H/O cryoablation of the L kidney for Renal CA 2010 at [facility]. Atrophic left kidney. H/O DDD/spinal stenosis. I [...] MD Section of Vascular [place] [address] [phone] documented in this encounter Nursing Notes * Elena Murray CMA - 01/12/2024 11:02 AM EDT Reviewed the option of transferring scripts to [facility] with patient and / or family. Elena Murray CMA documented in this encounter Plan of Treatment Upcoming Encounters Date Type Department Care Team (Late st Contact Info) Description 01/09/2025 1:00 PM EDT Imaging Vascular Lab, [address], [place] [address] [place] [address] 01/09/2025 2:00 PM EDT Imaging Vascular Lab, [address], [place] [address] [place] [address] 01/09/2025 3:00 PM EDT Imaging Vascular Lab, [address], [place] [address] [place] [address] 01/23/2025 9:00 AM EDT Telemedicine Vascular Surg [facility] [address] [place] [address] Shilo Sim CRNP [address] [place], [place] [id number] Scheduled Orders Name Type Priority Associated Diagnoses Orde r Schedule VASC [place] ART DUP BILAT LE Medical Imaging Routine Peripheral vascular disease (HCC) Ordered: 01/12/2024 VASC ANKLE BRACHIAL INDICES WITHOUT PPG (PAD) Medical Imaging Routine Peripheral vascular disease (HCC) Ordered: 01/12/2024 VASC DUPLEX CAROTID BILAT Medical Imaging Routine Asymptomatic [...] this encounter Medical Devices Implanted Type Area Secretarial Teacher Device Identifier Shelf Expiration Date Model / Serial / Lot Stent Viabahn [id number] 135cm - [id number] Implanted:06/19 by Francisca Pride MD at [place] [facility] (Quantity not on file) [employer] [id number] 12/06/2021 [id number] / [id number] / [id number] Graft Stent Viab 7mmx7.5cm - [id number] Implanted:06/19 by Francisca Pride MD at OR [facility] (Quantity not on file) [employer] [id number] 01/26/2022 [id number] / [id number] / [id number] documented as of this encounter Visit Diagnoses [...] Documents on File Type Date Recorded Patient Open Pit Quarry Supervisor Expl anation POL 09/05/2024 signed on 08/31 Advance Directives and Living Will 03/27/2014 LIVING WILL Power of Surgical Nurse Practitioner 03/27/2014 POWER OF A TTORNEY DURABLE HEALTH CARE POA * Full Code (Latest Code Status on File) Date Activated Date Inactivated Comments 07/07/2019 11:09 AM 07/08/2019 2:52 PM This orde r reflects the patients wishes and were consensually agreed upon. Care Teams Section Cutter Relationship Specialty Start Date End Date Sunny Hatfield DO [address] [place] [address] PCP - General Family Medicine 08/05/23 documented as of this encounter
--- OUTSIDE RECORDS SUMMARY | 2024-11-07 05:50 | External Medical Summary | Summary of Care ---
Author Name Unknown Organization [facility] Address [address] [place] [address] Phone [phone] Care Team Providers Care Sql Ssrs Developer Name Role Phone Sunny Hatfield DO Primary Care Provider Reason for Visit * Reason Onset Date Comments Advice 09/27/2024 Encounter Details Date Type Department Care Team (Late st Contact Info) Description 09/27/2024 Telephone Family Practice [facility] [address] [place] [address] Sunny Hatfield DO [address] [place] [...] 08/31/24 and durable health care power of assistant prosecuting attorney faxed. * Telephone Encounter - Bessy Tuttle OSA - 09/27/2024 1:45 PM EDT Aleisha(#[phone]) calling from [facility], stated patient is forbidding dialysis and is requesting the DNR form that the family had filled out, stated family is wanting him to go on hospice. Please Fax form to [phone] documented in this encounter Plan of Treatment Upcoming Encounters Date Type Department Care Team (Late st Contact Info) Description 01/09/2025 1:00 PM EDT Imaging Vascular Lab, [address] [place] [address] 01/09/2025 2:00 PM EDT Imaging Vascular Lab, [address] [place] [address] 01/09/2025 3:00 PM EDT Imaging Vascular Lab, [address] [place] [address] 01/24/2025 9:10 AM EDT Office Visit Vascular Surgery, [facility] [address] [place] [address] Raimundo Valencia MD [address] [place] [address] Health Maintenance Due Date Last Done Comments [...] this encounter Medical Devices Implanted Type Area Ladle Liner Device Identifier Shelf Expiration Date Model / Serial / Lot Stent Viabahn [id number] 135cm - [id number] Implanted:06/19 by Francisca Pride MD at [place] [facility] (Quantity not on file) [employer] [id number] 12/06/2021 [id number] / [id number] / [id number] Graft Stent Viab 7mmx7.5cm - [id number] Implanted:06/19 by Francisca Pride MD at OR [facility] (Quantity not on file) [employer] [facility] [id number] 01/26/2022 [id number] / [id number] / [id number] documented as of this encounter Advance Directives Documents on File Type Date Recorded Patient Cashier Associate Priya PERRY 09/05/2024 signed on 08/31 Advance Directives and Living Will 03/27/2014 LIVING WILL Power of Double Backer 03/27/2014 POWER OF A TTORNEY DURABLE HEALTH CARE POA * Full Code (Latest Code Status on File) Date Activated Date Inactivated Comments 07/07/2019 11:09 AM 07/08/2019 2:52 PM This orde r reflects the patients wishes and were consensually agreed upon. Care Teams Sql Ssrs Developer Relationship Specialty Start Date End Date Sunny Hatfield DO [address] [place] [address] PCP - General Family Medicine 08/05/23 documented as of this encounter
--- OUTSIDE RECORDS SUMMARY | 2024-11-07 05:50 | External Medical Summary | Summary of Care ---
Author Name Unknown Organization [facility] Address [address] [place] [address] Phone [phone] Care Team Providers Care Plate Worker Helper Name Role Phone Sunny Hatfield Primary Care Provider Reason for Visit * Reason Onset Date Comments Appointment 10/05/2024 Encounter Details Date Type Department Care Team (Late st Contact Info) Description 10/05/2024 Telephone Vascular Surg [facility] [address] [place] [address] Services, Scheduling [address] [place] [address] Appointment Allergies Active Allergy Reactions Criticality Noted [...] that is on 01/24. Pt has dialysis [id number]. No appts at [facility] with Dr. Valencia except for Wednesdays. Please assist in rescheduling. documented in this encounter Plan of Treatment Upcoming Encounters Date Type Department Care Team (Late st Contact Info) Description 01/09/2025 1:00 PM EDT Imaging Vascular Lab, [facility] 2nd [facility], [place] [address] [phone] 01/09/2025 2:00 PM EDT Imaging Vascular Lab, [address], [place] [address] [phone] 01/09/2025 3:00 PM EDT Imaging Vascular Lab, [address], [place] [address] [phone] 01/23/2025 9:00 AM EDT Telemedicine Vascular Surg [facility], [place] [address] [place] [address] Shilo Sim CRNP [address] [place] [address] Health Maintenance Due Date Last Done Comments [...] this encounter Medical Devices Implanted Type Area Insulation Batting Machine Operator Device Identifier Shelf Expiration Date Model / Serial / Lot Stent Viabahn [id number] 135cm - [id number] Implanted:06/19 by Francisca Pride MD at OR [facility] (Quantity not on file) [employer] [id number] 12/06/2021 [id number] / [id number] / [id number] Graft Stent Viab 7mmx7.5cm - [id number] Implanted:06/19 by Francisca Pride MD at OR [facility] (Quantity not on file) [employer] [id number] 01/26/2022 [id number] / [id number] / [id number] documented as of this encounter Advance Directives Documents on File Type Date Recorded 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 Care Teams Plate Worker Helper Relationship Specialty Start Date End Date Sunny Hatfield DO [address] [address] PCP - General Family Medicine 08/05/23 documented as of this encounter
--- OUTSIDE RECORDS SUMMARY | 2024-11-07 05:50 | External Medical Summary | Summary of Care ---
Author Name Unknown Organization [facility] Address [address] [place] [address] Phone [phone] Care Team Providers Care Php Consultant Name Role Phone Sunny Hatfield Primary Care Provider Reason for Visit * Reason Onset Date Comments Appointment 10/05/2024 Encounter Details Date Type Department Care Team (Late st Contact Info) Description 10/05/2024 Telephone Vascular Surg [facility] [address] [place] [address] Services, Scheduling [address] [place] [address] Appointment Allergies Active Allergy Reactions Criticality Noted Date Comments Ciprofloxacin Nausea/vomiting 06/30/2012 Iodinated Contrast Media 01/31/2020 IVP DYE kidney issues documented as of this encounter (statuses as of 10/05/2024) Medications Fluticasone-Salmet carmelita 250-50 MCG/DOSE Inhalation Aerosol [...] as of this encounter (statuses as of 10/05/2024) Active Problems Problem Noted Date Diagnosed Date [...] as of this encounter (statuses as of 10/05/2024) Resolved Problems Problem Noted Date Diagnosed Date Resolved Date Chronic kidney disease, stage 3b 08/30/2023 08/22/2024 Overview: Per CKD protocol Chronic renal impairment, stage 3b 08/05/2023 09/02/2023 Chronic renal insufficiency, stage III (moderate) 07/07/2019 09/02/2023 Overview: Per CKD protocol documented as of this encounter (statuses as of 10/05/2024) Immunizations Name Administration Dates Next Due COVID-19 [...] that is on 01/24. Pt has dialysis [id number]. No appts at [facility] with Dr. Valencia except for Wednesdays. Please assist in rescheduling. documented in this encounter Plan of Treatment Upcoming Encounters Date Type Department Care Team (Late st Contact Info) Description 01/09/2025 1:00 PM EDT Imaging Vascular Lab, [facility] 2nd [facility], [place] [address] [phone] 01/09/2025 2:00 PM EDT Imaging Vascular Lab, [address], [place] [address] [phone] 01/09/2025 3:00 PM EDT Imaging Vascular Lab, [address], [place] [address] [phone] 01/23/2025 9:00 AM EDT Telemedicine Vascular Surg [facility], [place] [address] [place] [address] Shilo Sim CRNP [address] [place] [address] Health Maintenance Due Date Last Done Comments [...] this encounter Medical Devices Implanted Type Area Quality Systems Manager Device Identifier Shelf Expiration Date Model / Serial / Lot Stent Viabahn [id number] 135cm - [id number] Implanted:06/19 by Francisca Pride MD at [place] [facility] [place] (Quantity not on file) [employer] [id number] 12/06/2021 [id number] / [id number] / [id number] Graft Stent Viab 7mmx7.5cm - [id number] Implanted:06/19 by Francisca Pride MD at [place] [facility] [place] (Quantity not on file) [employer] [id number] 01/26/2022 [id number] / [id number] / [id number] documented as of this encounter Advance Directives Documents on File Type Date Recorded Patient Business Systems Consultant Expl anation POLST 09/05/2024 signed on 08/31 Advance Directives and Living Will 03/27/2014 LIVING WILL Power of Men'S Designer 03/27/2014 POWER OF A TTORNEY DURABLE HEALTH CARE POA * Full Code (Latest Code Status on File) Date Activated Date Inactivated Comments 07/07/2019 11:09 AM 07/08/2019 2:52 PM This orde r reflects the patients wishes and were consensually agreed upon. Care Teams Php Consultant Relationship Specialty Start Date End Date Sunny Hatfield DO [address] [address] PCP - General Family Medicine 08/05/23 documented as of this encounter
--- OUTSIDE RECORDS SUMMARY | 2024-11-07 05:50 | External Medical Summary | Summary of Care ---
Author Name Unknown Organization [facility] Address [address] [place] [address] Phone [phone] Care Team Providers Care Commercial Account Officer Name Role Phone Sunny Hatfield Primary Care Provider Reason for Visit * Reason Onset Date Comments Hospital Follow-Up 09/25/2024 Encounter Details Date Type Department Care Team (Late st Contact Info) Description 09/25/2024 Telephone Cardiology, [facility] [address] [address] Yassine Mock PAAnais [address] [place], [place] [phone] Hospital Follow-Up Allergies Active Allergy Reactions Criticality [...] 18 g 6 06/27/20 24 Active Fluticasone-Salmet carmleita 250-50 MCG/ACT Inhalation Aerosol Powder Breath Activated [...] 2024 Appointment Provider:Angie Mejia PA-C in CARDIOLOGY [facility] * Telephone Encounter - Emma Ramirez RN - 09/25/2024 1:58 PM EDT Manish Quinn was discharged from [facility] on 09/25/24. Cardiology evaluated you while in hospital, Follow up with your cardiology in 2-4 weeks time upon discharge. documented in this encounter Plan of Treatment Upcoming Encounters Date Type Department Care Team (Late st Contact Info) Description 09/28/2024 3:00 PM EDT Office Visit Family [facility] [address] [address] Sunny Hatfield, [address] [address] 01/09/2025 1:00 PM EDT Imaging Vascular Lab, [address], [place] [address] [phone] 01/09/2025 2:00 PM EDT Imaging Vascular Lab, [address], [place] [address] [phone] 01/09/2025 3:00 PM EDT Imaging Vascular Lab, [address], [place] [address] [place] [address] 01/24/2025 9:10 AM EDT Office Visit Vascular Surgery, [facility] [address] [phone] Raimundo Valencia MD [address] [place], [place] [phone] Health Maintenance Due Date Last Done Comments [...] this encounter Medical Devices Implanted Type Area Forestry Professor Device Identifier Shelf Expiration Date Model / Serial / Lot Stent Viabahn [id number] 135cm - [id number] Implanted:06/19 by Francisca Pride MD at [place] [facility] [place] (Quantity not on file) [employer] [id number] 12/06/2021 [id number] / [id number] / [id number] Graft Stent Viab 7mmx7.5cm - [id number] Implanted:06/19 by Francisca Pride MD at [place] [facility] [place] (Quantity not on file) [employer] [id number] 01/26/2022 [id number] / [id number] / [id number] documented as of this encounter Advance Directives Documents on File Type Date Recorded Patient Cancellation Clerk Expl anation POLST 09/05/2024 signed on 08/31 Advance Directives and Living Will 03/27/2014 LIVING WILL Power of Slot Attendant 03/27/2014 POWER OF A TTORNEY DURABLE HEALTH CARE POA * Full Code (Latest Code Status on File) Date Activated Date Inactivated Comments 07/07/2019 11:09 AM 07/08/2019 2:52 PM This orde r reflects the patients wishes and were consensually agreed upon. Care Teams Commercial Account Officer Relationship Specialty Start Date End Date Sunny Hatfield DO [address] [address] PCP - General Family Medicine 08/05/23 documented as of this encounter
[2024-11-07 06:10] LABS: Base Excess VBG 10.6 mEq/L; HCO3 VBG 36 mmol/L; Oxygen Saturation VBG 62.2 %; PCO2 VBG 51 mmHg (38-50); PO2 VBG 33 mmHg; pH VBG 7.46 (7.36-7.41)
[2024-11-07 06:25] LABS: Basophils # (auto) 0.03 K/uL (0.00-0.20); Basophils % (auto) 0.5 %; Eosinophils # (auto) 0.14 K/uL (0.00-0.50); Eosinophils % (auto) 2.5 %; Hematocrit (blood only) 27.7 % (42.0-52.0); Hemoglobin 9.4 g/dl (14.0-18.0); Immature Granulocytes # (auto) 0.02 K/uL (0.01-0.20); Immature Granulocytes % (auto) 0.4 %; Lymphocytes # (auto) 0.84 K/uL (1.20-3.40); Lymphocytes % (auto) 15.1 %; Mean Corpuscular Hemoglobin 32.8 pg (25.0-34.0); Mean Corpuscular Hgb Conc 33.9 g/dL (32.0-36.0); Mean Corpuscular Volume 96.5 fL (80.0-100.0); Mean Platelet Volume 9.4 fL (9.4-12.4); Monocytes # (auto) 0.65 K/uL (0.11-0.59); Monocytes % (auto) 11.7 %; Neutrophils # (auto) 3.88 K/uL (1.40-6.50); Neutrophils % (auto) 69.8 %; Platelet Count 182 K/uL (130-400); RDW Coefficient of Variation 14.6 % (11.5-14.5); RDW Standard Deviation 51.4 fL (36.4-46.3); Red Blood Count 2.87 M/uL (4.70-6.10); White Blood Count 5.56 K/ul (4.8-10.8)
--- NOTE | 2024-11-07 06:36 | Emergency Department Note ---
Impression & Plan Dyspnea, Hypoxia, Nausea & vomiting, CHF (congestive heart failure), Elevated troponin ED Provider Note ED Provider Note NAME: MARIANA BRUSH AGE:89 SEX: Male : 1935 ARRIVES VIA: Private vehicle INFORMANT: Patient ED PROVIDER(s): Gisselle Kramer DO CHIEF COMPLAINT: Shortness of breath, hypoxia HPI: This is an 89-year-old male presents emergency department due to concern for shortness of breath and hypoxia. Patient is at an assisted living facility and staff overnight noted that his oxygen was in the 50s. EMS was contacted who then spoke with the patient's son. Patient was placed on oxygen and improved. He denied any coming chest pain. He does have a history of COPD and CHF. 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 He states on arrival he noticed cyanosis of his father's lips, and his sats still seem low on bedside check at that time. Upon arrival here patient was noted to be 79% in triage. Patient denies any sense of being shortness of breath. He was immediately placed on oxygen via nasal cannula and then converted to an oxime mask with improvement of his oxygen into the low 90s. Patient denies any chest pain, abdominal pain, dizziness, or headache. He states he has had vomiting over the last several days and has had little to eat or drink. Patient is also on dialysis, he was dialyzed yesterday without any difficulty. He denies any diarrhea. He states he does still make urine and has not noted any changes to his urine or urinary habits. No known sick contacts, he denies fevers or chills or recent cough. Son states patient also has a history of atrial fibrillation and does take carvedilol. PAST MEDICAL HISTORY:See Below PAST SURGICAL HISTORY:See Below FAMILY HISTORY:See Below SOCIAL HISTORY:See Below HOME MEDICATIONS:See Below ALLERGIES:See Below VITALS:See Below PHYSICAL EXAMINATION: GENERAL: alert, well appearing, well nourished, no distress, non-toxic EYE EXAM: normal conjunctiva, PERRL and EOM's grossly intact OROPHARYNX: no exudate, no erythema, lips, buccal mucosa, and tongue normal and mucous membranes are moist NECK: supple, no nuchal rigidity, no adenopathy, non-tender LUNGS: Clear to auscultation. Normal chest wall mechanics, no w/r/r HEART: no murmurs, S1 normal and S2 normal ABDOMEN: abdomen soft, non-tender, normo-active bowel sounds, no masses, no rebound or guarding. SKIN: no rashes, petechiae, orbruising UPPER EXTREMITIES: upper extremities are grossly normal. FROM, nml pulses b/l. LOWER EXTREMITIES: No pitting edema. FROM, nml pulses b/l. NEURO EXAM: Normal sensorium, cranial nerves II-XII grossly intact, normal speech, no facial droop,nogross weakness of arms, no gross weakness of legs. Gross sensation intact. No ataxia. Vital Signs: reviewed and remarkable Differential Diagnosis: pneumonia, bronchitis, COPD/Asthma exacerbation, pneumothorax, pulmonary embolism, congestive heart failure, acute coronary syndrome, as well as others were considered MEDICAL DECISION MAKING: This is an 89 yo male who presents to the ER with concern for hypoxia, dyspnea, recent chest pain and recent vomiting. He was afebrile on arrival but noted to be very hypoxic and was immediately placed in a room and started on supplemental oxygen. Labs drawn and sent, IV established, EKG and CXR performed and interpreted at bedside, and patient placed on telemetry. Patient was maintaining sats on oxy mask at 8 lpm and he reported feeling improved. No obvious cyanosis upon entering the room. Son helped to provide history. Son concerned about worsening anemia or recurrent cardiac event. Nasal swab obtained and sent additionally. CXR with increased interstitial markings b/l, worse on the right. Given patient reported he does make urine, patient given a dose of lasix. Troponin significantly elevated, more than prior levels. I suspect this is from increased demand and hypoxia with his underlying significant CAD. No chest pain or vomiting while in the ER. After discussion with son at bedside, patient is DNI/DNR. Son is in agreement with treatment of symptoms as possible and is hoping oxygen to be arranged at discharge to use in his assisted living. CAse discussed with hospitalist team for additional evaluation and mgmt. Consultation(s): 0750: Discussed with Dr. Huber, [facility] hospitalist team, for additional evaluation and management. ER Treatment Provided: See below Diagnostics Interpreted By Me: -ECG: Sinus bradycardia at 58, normal axis, normal intervals, no acute ST/T wave changes -Cardiac Monitoring: An order was placed for continuous cardiac monitoring. The monitor shows a rate of 60 with normal sinus rhythm. -Laboratory studies: As stated above and show below. -Imaging studies: cxr: No cardiomegaly, no wide mediastinum, increased interstitial markings bilaterally worse on the right than left Triage Nursing Note Reviewed Prior/Outside Records Reviewed -prior discharge summary from September 2024 reviewed Past Med/Surg History Problem List (Updated 11/07/24 @ 21:55 by Gisselle Kramer DO) Elevated troponin (Acute) Chronic heart failure with preserved ejection fraction Elevated troponin I level Acute respiratory failure with hypoxia Respiratory failure Hypoxia (Acute) Dyspnea (Acute) Labile hypertension Labile hypertension Elevated troponin (Acute) Anemia (Acute) Anemia Atrial fibrillation with rapid ventricular response Hyperkalemia Cholelithiasis Gallstones Pneumonia Hypertension, uncontrolled BPH with urinary obstruction Decreased appetite Acute renal failure superimposed on stage 4 chronic kidney disease Acute on chronic heart failure with preserved ejection fraction ASCVD (arteriosclerotic cardiovascular disease) Elevated troponin Acute kidney injury Hypertensive urgency CKD (chronic kidney disease) CHF (congestive heart failure) (Acute) Poorly-controlled hypertension Nausea & vomiting (Acute) Chest pain (Acute) Encounter for pre-operative examination Medical History ESRD (end stage renal disease) on dialysis Penile edema Esophageal dysmotility Slow to wake up after anesthesia Vascular disease, peripheral BPH (benign prostatic hyperplasia) Hiatal hernia Dysphagia Belching continuous x several hours after eating/drinking GERD (gastroesophageal reflux disease) History of kidney cancer 2010 cryoablation therapy; follows with 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 Lai/Dr. Mancilla History of TIA (transient ischemic attack) 2018 History of myocardial infarction 1992 Hyperlipemia HTN (hypertension) COPD (chronic obstructive pulmonary disease) Surgical History History of tooth extraction History of vascular surgery stent LLE History of esophagogastroduodenoscopy (EGD) History of colonoscopy History of prior ablation treatment History of heart artery stent "quite a few" (2 placed 03/2019 and mult prior to) History of cardiac catheterization most recent 03/2019 at [facility] - 2 stents placed; mult caths at [facility]; mult stents (unable to recall specifics) History of coronary artery bypass graft x 3 1996 Family History Other Coronary heart disease No family history of adverse response to anesthesia Social History Smoking Status: Never smoker Second Hand Exposure: No; Do You Dip or Chew Tobacco: No; Hx Alcohol Use: No Hx Substance Use: No Preferred Language: French Communication Ability: Effective 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: No Beliefs That Will Affect Care: None Current Living Situation: Group Home Other Information That Helps Us Care for You: No Feels Safe at Home: Yes Safety Concerns: Feels Safe At This Time Assistive Devices: Denture - Upper, Denture - Lower and Hearing Aid - Bilateral Allergies Allergies Allergy/AdvReac Type Severity Reaction Status Date / Time ciprofloxacin [From Cipro] AdvReac Vomiting Verified 09/19/20 10:27 Iodinated Contrast Media AdvReac Unknown Verified 09/19/20 10:27 Home Meds Home Medications Medication Instructions Recorded Confirmed acetaminophen 325 mg tablet 325 mg PO QID PRN Pain 09/16/20 11/07/24 (Tylenol) albuterol 90 mcg/actuation aerosol 90 mcg inhalation Q6H PRN sob 09/16/20 11/07/24 inhaler amlodipine 5 mg tablet (Norvasc) 5 mg PO BID 09/16/20 11/07/24 aspirin 81 mg tablet,delayed 81 mg PO BID 09/16/20 11/07/24 release clopidogrel 75 mg tablet (Plavix) 75 mg PO QAM 09/16/20 11/07/24 finasteride 5 mg tablet 5 mg PO QAM 09/16/20 11/07/24 fluticasone 250 mcg-salmeterol 50 1 inh inhalation BID 09/16/20 11/07/24 mcg/dose blistr powdr for inhalation (Advair Diskus) nitroglycerin 0.4 mg sublingual 0.4 mg sublingual UD PRN Chest Pain 09/16/20 11/07/24 tablet (Nitrostat) pantoprazole 40 mg tablet,delayed 40 mg PO QAM 09/16/20 11/07/24 release (Protonix) rosuvastatin 20 mg tablet (Crestor) 20 mg PO QPM 09/16/20 11/07/24 tamsulosin 0.4 mg capsule 0.4 mg PO QAM 09/16/20 11/07/24 hydralazine 10 mg tablet 10 mg PO TID 07/09/24 11/07/24 isosorbide dinitrate 5 mg tablet 5 mg PO TID 07/09/24 11/07/24 docusate sodium 100 mg tablet 100 mg PO HS 09/20/24 11/07/24 sucroferric oxyhydroxide 500 mg 500 mg PO TIDM 09/20/24 11/07/24 chewable tablet (Velphoro) carvedilol 25 mg tablet 25 mg BID 11/07/24 11/07/24 Previous Rx's Medication Instructions Recorded mirtazapine 30 mg tablet 30 mg PO HS #30 tabs 07/27/24 Results & Data (ED) Vital Signs Vital Signs - 24 hr 11/07/24 05:44 11/07/24 05:54 11/07/24 05:54 Temperature 36.8 C Temperature Source Temporal Artery Scan Pulse Rate 58 L Pulse Rate [Apical] Pulse Rate from SpO2 Sensor Pulse Rhythm [Apical] Pulse Strength [Apical] Respiratory Rate 16 Respiratory Effort / Characteristics Non-Labored Non-Labored Spontaneous Respiratory Depth Normal Normal Respiratory Pattern Regular Blood Pressure 174/73 H Blood Pressure [Left Arm] Blood Pressure Mean 106 Blood Pressure Mean [Left Arm] Blood Pressure Position [Left Arm] Pulse Oximetry 79 L Oxygen Delivery Method Room Air Oxymask Oxymask Oxygen Flow Rate 6 6 Sepsis Recent Fever Within 48 Hours No Sepsis New/Unexplained Change in Mental Status No Sepsis Action Taken by Nursing No Action Required 11/07/24 06:02 11/07/24 06:03 11/07/24 06:18 Temperature Temperature Source Pulse Rate 57 L 56 L 56 L Pulse Rate [Apical] Pulse Rate from SpO2 Sensor 57 L 57 L Pulse Rhythm [Apical] Pulse Strength [Apical] Respiratory Rate 20 19 Respiratory Effort / Characteristics Respiratory Depth Respiratory Pattern Blood Pressure 167/138 H 188/94 H Blood Pressure [Left Arm] Blood Pressure Mean 147 125 Blood Pressure Mean [Left Arm] Blood Pressure Position [Left Arm] Pulse Oximetry 92 93 Oxygen Delivery Method Oxymask Oxymask Oxygen Flow Rate 6 6 Sepsis Recent Fever Within 48 Hours Sepsis New/Unexplained Change in Mental Status Sepsis Action Taken by Nursing 11/07/24 06:30 11/07/24 06:43 11/07/24 06:44 Temperature Temperature Source Pulse Rate 56 L 55 L Pulse Rate [Apical] Pulse Rate from SpO2 Sensor 56 L 55 L Pulse Rhythm [Apical] Pulse Strength [Apical] Respiratory Rate 19 18 Respiratory Effort / Characteristics Respiratory Depth Respiratory Pattern Blood Pressure 182/95 H 182/95 H Blood Pressure [Left Arm] Blood Pressure Mean 137 124 Blood Pressure Mean [Left Arm] Blood Pressure Position [Left Arm] Pulse Oximetry 94 94 Oxygen Delivery Method Room Air Oxymask Oxygen Flow Rate 6 Sepsis Recent Fever Within 48 Hours Sepsis New/Unexplained Change in Mental Status Sepsis Action Taken by Nursing 11/07/24 07:00 11/07/24 07:45 Temperature 36.5 C Temperature Source Oral Pulse Rate Pulse Rate [Apical] 55 L 56 L Pulse Rate from SpO2 Sensor Pulse Rhythm [Apical] Regular Pulse Strength [Apical] Normal Respiratory Rate 20 13 Respiratory Effort / Characteristics Non-Labored Spontaneous Respiratory Depth Normal Respiratory Pattern Regular Blood Pressure Blood Pressure [Left Arm] 181/69 H 184/84 H Blood Pressure Mean Blood Pressure Mean [Left Arm] 106 117 Blood Pressure Position [Left Arm] Lying Pulse Oximetry 91 94 Oxygen Delivery Method Oxymask Oxymask Oxygen Flow Rate 6 6 Sepsis Recent Fever Within 48 Hours Sepsis New/Unexplained Change in Mental Status Sepsis Action Taken by Nursing Laboratory Data 11/07/24 06:01 11/07/24 06:01 Lab Results 11/07/24 11/07/24 Range/Units 06:01 06:06 WBC 5.56 (4.8-10.8) K/ul RBC 2.87 L (4.70-6.10) M/uL Hgb 9.4 L (14.0-18.0) g/dl POC Hgb 8.8 L (14.0-18.0) g/dl Hct 27.7 L (42.0-52.0) % POC Hct 26 L (42-52) % MCV 96.5 (80.0-100.0) fL MCH 32.8 (25.0-34.0) pg MCHC 33.9 (32.0-36.0) g/dL RDW Std Deviation 51.4 H (36.4-46.3) fL RDW Coeff of Jessica 14.6 H (11.5-14.5) % Plt Count 182 (130-400) K/uL MPV 9.4 (9.4-12.4) fL Immature Gran % (Auto) 0.4 % Neut % (Auto) 69.8 % Lymph % (Auto) 15.1 % [place] % (Auto) 11.7 % Eos % (Auto) 2.5 % Baso % (Auto) 0.5 % Neut # (Auto) 3.88 (1.40-6.50) K/uL Lymph # (Auto) 0.84 L (1.20-3.40) K/uL [place] # (Auto) 0.65 H (0.11-0.59) K/uL Eos # (Auto) 0.14 (0.00-0.50) K/uL Baso # (Auto) 0.03 (0.00-0.20) K/uL Immature Gran # (Auto) 0.02 (0.01-0.20) K/uL PT 11.0 (9.0-12.0) Seconds INR 1.0 (0.9-1.1) VBG pH 7.46 H (7.36-7.41) VBG pCO2 51 H (38-50) mmHg VBG pO2 33 mmHg VBG HCO3 36 mmol/L VBG O2 Saturation 62.2 % VBG Base Excess 10.6 mEq/L POC Sodium 138 (135-144) mmol/L Sodium 140 (136-145) mmol/L POC Potassium 3.2 L (3.3-5.0) mmol/L Potassium 3.3 L (3.5-5.1) mmol/L POC Chloride 93 L (101-112) mmol/L Chloride 96 L (98-107) mmol/L Carbon Dioxide 37 H (21-32) mmol/L POC Total CO2 31 (24-31) mmol/L Anion Gap 7 (3-11) POC Anion Gap 19.0 (16-25) mmol/L POC BUN 11 (7-18) mg/dl BUN 12 (6-23) mg/dl Creatinine 3.08 H (0.6-1.4) mg/dl POC Creatinine 3.4 H (0.6-1.3) mg/dl Est Cr Clr Drug Dosing 14.5 ml/min eGFR 18.77 BUN/Creatinine Ratio 3.9 L (10-20) Glucose 96 (70-99(Fasting)) mg/dl POC Glucose (other) 97 (70-99) mg/dl Calcium 9.0 (8.6-10.3) mg/dl POC Ioniz Calcium Monet 1.14 (1.12-1.32) mmol/l Magnesium 2.0 (1.7-2.4) mg/dl Total Bilirubin 0.5 (0.2-1.0) mg/dl AST 8 L (13-39) U/L ALT 6 L (7-52) U/L Alkaline Phosphatase 52 (34-104) U/L Troponin I High Sens 197.6 H* (0-20) pg/ml Total Protein 6.3 (6.0-8.3) gm/dl Albumin 3.9 (3.4-5.0) gm/dl Globulin 2.4 L (2.5-4.0) gm/dl Albumin/Globulin Ratio 1.6 (0.9-2) Lipase 6 L (11-82) U/L Administered Medications Amlodipine Besylate (Amlodipine Besylate 5 Mg Tab) 5 mg PO BID GERALDINE Stop: 12/07/24 20:59 Last Admin: 11/07/24 21:00 Dose: 5 mg Documented By: CR Aspirin (Aspirin 81 Mg Ectab) 81 mg PO BID GERALDINE Stop: 12/07/24 20:59 Last Admin: 11/07/24 20:59 Dose: 81 mg Documented By: CR Carvedilol (Carvedilol 25 Mg Tab) 25 mg PO BIDM GERALDINE Stop: 12/07/24 16:59 Last Admin: 11/07/24 17:50 Dose: 25 mg Documented By: AAL Clopidogrel Bisulfate (Clopidogrel Bisulfate 75 Mg Tab) 75 mg PO QAM GERALDINE Stop: 12/07/24 10:20 Last Admin: 11/07/24 11:23 Dose: 75 mg Documented By: AAL Docusate Sodium (Docusate Sodium 100 Mg Cap) 100 mg PO HS GERALDINE Stop: 12/07/24 20:59 Last Admin: 11/07/24 21:00 Dose: Not Given Documented By: CR Furosemide (Furosemide 40 Mg/4 Ml Vial) 100 mg IV Q8H GERALDINE Stop: 12/07/24 10:29 Last Admin: 11/07/24 17:46 Dose: 100 mg Documented By: Admin: 11/07/24 11:23 Dose: 100 mg Documented By: PERFECTO Heparin Sodium (Porcine) (Heparin Sod 5,000 Unit/0.5 Ml Vial) 5,000 units SQ Q12 GERALDINE Stop: 12/07/24 20:59 Last Admin: 11/07/24 20:59 Dose: 5,000 units Documented By: MAIRA Hydralazine HCl (Hydralazine 10 Mg Tab) 10 mg PO TID GERALDINE Stop: 12/07/24 13:59 Last Admin: 11/07/24 20:59 Dose: 10 mg Documented By: Admin: 11/07/24 14:27 Dose: 10 mg Documented By: PERFECTO Ampicillin Sodium/Sulbactam Sodium (Unasyn) 3,000 mg in 100 mls @ 200 mls/hr IV Q6H GERALDINE Stop: 11/12/24 17:44 Last Infusion: 11/07/24 18:47 Dose: Infused Documented By: Admin: 11/07/24 18:12 Dose: 200 mls/hr Documented By: PERFECTO Isosorbide Dinitrate (Isosorbide Dinitrate 5 Mg Tab) 5 mg PO DAILY@0700,1200,1700 GERALDINE Stop: 12/07/24 11:59 Last Admin: 11/07/24 17:46 Dose: 5 mg Documented By: Admin: 11/07/24 11:24 Dose: 5 mg Documented By: PERFECTO Mirtazapine (Mirtazapine Tab 15 Mg Tab) 30 mg PO HS GERALDINE Stop: 12/07/24 20:59 Last Admin: 11/07/24 20:59 Dose: 30 mg Documented By: MAIRA Ondansetron HCl (Ondansetron Inj 2 Mg/Ml 2 Ml Vial) 4 mg IV Q6H PRN PRN Reason: Nausea And Vomiting Stop: 12/07/24 10:30 Last Admin: 11/07/24 11:13 Dose: 4 mg Documented By: PERFECTO Rosuvastatin Calcium (Rosuvastatin Calcium 20 Mg Tab) 20 mg PO QPM GERALDINE Stop: 12/07/24 20:59 Last Admin: 11/07/24 20:59 Dose: 20 mg Documented By: MAIRA Discontinued Medications Furosemide (Furosemide Inj 20 Mg/2 Ml Vial) 20 mg IV ONE ONE Stop: 11/07/24 06:25 Last Admin: 11/07/24 06:43 Dose: 20 mg Documented By: JODIE Metolazone (Metolazone 5 Mg Tablet) 5 mg PO NOW ONE Stop: 11/07/24 10:19 Last Admin: 11/07/24 11:17 Dose: 5 mg Documented By: PERFECTO Potassium Chloride (Potassium Chloride Crtab 20 Meq Tabcr) 20 meq PO NOW STA Stop: 11/07/24 09:20 Last Admin: 11/07/24 09:30 Dose: 20 meq Documented By: PHILIP Potassium Chloride (Potassium Chloride Crtab 20 Meq Tabcr) 80 meq PO NOW STA Stop: 11/07/24 10:19 Last Admin: 11/07/24 12:05 Dose: 20 meq Documented By: PERFECTO Imaging Data Radiologist's Impression: Chest X-Ray 11/07/24 05:57 EXAM: XR chest 1V portable CLINICAL HISTORY: sob TECHNIQUE: Radiograph of chest was acquired. COMPARISON: 09/20/2024 15:32:00 IT SUPPORT TECHNICIAN FINDINGS: Hazy opacities in right lower zone. Mild blunting of right costophrenic angle suggestive of mild right pleural effusion. Mild left lower lung zone hazy opacity. No acute osseous abnormality. Midline sternotomy sutures were seen. CVP line is redemonstrated with its tip in the SVC. IMPRESSION: 1. Hazy opacities in right lower zone with mild blunting of right costophrenic angle suggestive of mild right pleural effusion. (Stable) 2. Partial resolution of left lower zone hazy opacity. Electronically signed by Mitch Steiner 11-07-2024 06:59 AM Discharge Plan Visit Data Chief Complaint: Shortness of Breath/Dyspnea Stated Complaint: TROUBLE BREATHING, OXIGEN LOW ED Provider: Gisselle Kramer Discharge Problem: Dyspnea, Hypoxia, Nausea & vomiting, CHF (congestive heart failure), Elevated troponin Patient Disposition: Admitted As Inpatient Discharge Instructions Interventions: ED Discharge Assessment Last Done: 11/07/24 09:25
[2024-11-07 06:38] LABS: Albumin Globulin Ratio 1.6 (0.9-2); Albumin Level 3.9 gm/dl (3.4-5.0); BUN Creatinine Ratio 3.9 (10-20); Bilirubin,Total 0.5 mg/dl (0.2-1.0); Creatinine Clr Calc Pharmacy 14.5 ml/min; Globulin 2.4 gm/dl (2.5-4.0); Potassium 3.3 mmol/L (3.5-5.1); Total Protein 6.3 gm/dl (6.0-8.3)
[2024-11-07] MEDS: FUROSEMIDE INJ 20 MG/2 ML VIAL IV ONE (06:43)
[2024-11-07 06:47] LABS: Troponin I High Sensitivity 197.6 pg/ml (0-20)
[2024-11-07 06:56] LABS: iSTAT Creatinine 3.4 mg/dl (0.6-1.3); iSTAT Hemoglobin 8.8 g/dl (14.0-18.0); iSTAT Ionized Calcium 1.14 mmol/l (1.12-1.32); iSTAT Potassium 3.2 mmol/L (3.3-5.0)
--- NOTE | 2024-11-07 06:59 | XRay Report ---
EXAM: XR chest 1V portable CLINICAL HISTORY: sob TECHNIQUE: Radiograph of chest was acquired. 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 Mild blunting of right costophrenic angle suggestive of mild right pleural effusion. Mild left lower lung zone hazy opacity. No acute osseous abnormality. Midline sternotomy sutures were seen. CVP line is redemonstrated with its tip in the SVC. IMPRESSION: 1. Hazy opacities in right lower zone with mild blunting of right costophrenic angle suggestive of mild right pleural effusion. (Stable) 2. Partial resolution of left lower zone hazy opacity. Electronically signed by Mitch Steiner 11-07-2024 06:59 AM
[2024-11-07 07:35] LABS: Adenovirus PCR Not Detected (NotDetected); Bordetella parapertussis PCR Not Detected (NotDetected); Bordetella pertussis PCR Not Detected (NotDetected); Chlamydia pneumoniae PCR Not Detected (NotDetected); Coronavirus 229E PCR Not Detected (NotDetected); Coronavirus CoV-2 (COVID19)PCR Not Detected (NotDetected); Coronavirus HKU1 PCR Not Detected (NotDetected); Coronavirus NL63 PCR Not Detected (NotDetected); Coronavirus OC43PCR Not Detected (NotDetected); Human Metapneumovirus PCR Not Detected (NotDetected); Influenza A PCR Not Detected (NotDetected); Influenza B PCR Not Detected (NotDetected); Mycoplasma pneumoniae PCR Not Detected (NotDetected); Parainfluenza Virus 1 PCR Not Detected (NotDetected); Parainfluenza Virus 2 PCR Not Detected (NotDetected); Parainfluenza Virus 3 PCR Not Detected (NotDetected); Parainfluenza Virus 4 PCR Not Detected (NotDetected); Respiratory Syncytial VirusPCR Not Detected (NotDetected); Rhinovirus/Enterovirus PCR Not Detected (NotDetected)
--- NOTE | 2024-11-07 07:55 | History & Physical Report ---
Date of Service November 07, 2024 Assessment & Plan (1) Elevated troponin: (2) Hypoxia: Plan Pt is an 89yo M with a complex PMHx significant for CAD (s/p multiple stents and CABG), PAD s/p bilateral common iliac stents, TIA, bilateral carotid stenosis, ESRD on HD MWF, atrial fibrillation diagnosed in Jul 2024, systolic and diastolic CHF, COPD, GERD [facility] with concern for acute respiratory failure. Acute hypoxic respiratory Failure Acute on Chronic Congestive Heart Failure Possible Pneumonia Pt with reported hypoxia to the 50s and 60s at home VBG noting pH 7.46, pCO2 51, HCO3 36 Chest XRAY with noted R pleural effusion BNP pending Echo pending Consider CT chest Procalcitonin pending Received a dose of IV Lasix in the ED, monitor output Cardiology consulted, appreciate further recs Oxygen supplementation as needed Daily weights, Is and Os Speech consult Empiric Unasyn Continue to monitor ESRD on HD MWF getting dialysis, last was yesterday Nephrology consulted with volume overload, appreciate recs Continue Velphoro TIDM Hypokalemia Replete as needed obstructive CAD s/p CABG 1996, CHARMAINE 2018 Chest pain Elevated troponin, likely multifactorial History of complex CAD history including multiple stents and CABG Intermittent pain for the past few days per son Son states has been getting multiple doses of nitro at the residence Troponin elevated, likely demand in the setting of above Continue aspirin, statin, carvedilol, isosorbide/hydralazine Cardiology consulted, appreciate recs PAD s/p bilateral common iliac stents Continue with aspirin and plavix Anemia of chronic disease Has been receiving IV iron infusions as outpatient Per recent cards communication, recommend hgb >10 given CAD Monitor H and H Continue other home meds DVT Ppx: SC heparin Code status: DNR/DNI Dispo: admit to PCU/tele History of Present Illness Chief Complaint: SOB Primary Care Provider: Sunny Hatfield DO Pt is an 89yo M with a complex PMHx significant for CAD (s/p multiple stents and CABG), PAD s/p bilateral common iliac stents, TIA, bilateral carotid stenosis, ESRD on HD MWF, atrial fibrillation diagnosed in Jul 2024, systolic and diastolic CHF, COPD, GERD presenting from [facility] with concern for acute respiratory failure. History obtained from pt's son present at bedside. Pt [place] He states at abut 3:30AM the staff at the pt's penitentiary noted that he was having trouble breathing. Son states that over the weekend the pt has been nauseous and throwing up without diarrhea. He has also been stating that he has chest pain occasionally. Also had dialysis yesterday. Follows with both Nephrology and cardiology. States that the pt was on hospice for one day when he was unresponsive but he spontaneously aroused and they decided to discontinue hospice. They are unsure what caused his to be unresponsive. Son also states that being on hospice would mean they would have to discontinue dialysis and his father does not want that yet. Son states that upon his arrival to the penitentiary he used a pulse ox and noted the pt's oxygen saturation to be in the 70s. He called EMS who started him on oxygen and brought him to the ED. He states that their goal is to get him stabilized and back to the penitentiary with oxygen if needed. Allergies Allergy/AdvReac Type Severity Reaction Status Date / Time ciprofloxacin [From Cipro] AdvReac Vomiting Verified 09/19/20 10:27 Iodinated Contrast Media AdvReac Unknown Verified 09/19/20 10:27 Home Medications Medication Instructions Recorded Confirmed Type acetaminophen 325 mg tablet 325 mg PO QID PRN Pain 09/16/20 11/07/24 History (Tylenol) albuterol 90 mcg/actuation aerosol 90 mcg inhalation Q6H PRN sob 09/16/20 11/07/24 History inhaler amlodipine 5 mg tablet (Norvasc) 5 mg PO BID 09/16/20 11/07/24 History aspirin 81 mg tablet,delayed 81 mg PO BID 09/16/20 11/07/24 History release clopidogrel 75 mg tablet (Plavix) 75 mg PO QAM 09/16/20 11/07/24 History finasteride 5 mg tablet 5 mg PO QAM 09/16/20 11/07/24 History fluticasone 250 mcg-salmeterol 50 1 inh inhalation BID 09/16/20 11/07/24 History mcg/dose blistr powdr for inhalation (Advair Diskus) nitroglycerin 0.4 mg sublingual 0.4 mg sublingual UD PRN Chest Pain 09/16/20 11/07/24 History tablet (Nitrostat) pantoprazole 40 mg tablet,delayed 40 mg PO QAM 09/16/20 11/07/24 History release (Protonix) rosuvastatin 20 mg tablet (Crestor) 20 mg PO QPM 09/16/20 11/07/24 History tamsulosin 0.4 mg capsule 0.4 mg PO QAM 09/16/20 11/07/24 History hydralazine 10 mg tablet 10 mg PO TID 07/09/24 11/07/24 History isosorbide dinitrate 5 mg tablet 5 mg PO TID 07/09/24 11/07/24 History mirtazapine 30 mg tablet 30 mg PO HS #30 tabs 07/27/24 11/07/24 Rx docusate sodium 100 mg tablet 100 mg PO HS 09/20/24 11/07/24 History sucroferric oxyhydroxide 500 mg 500 mg PO TIDM 09/20/24 11/07/24 History chewable tablet (Velphoro) carvedilol 25 mg tablet 25 mg BID 11/07/24 11/07/24 History Past Med/Surg History Problem List (Updated 11/07/24 @ 13:44 by Prasanna Ruiz DO) Chronic heart failure with preserved ejection fraction Elevated troponin I level Acute respiratory failure with hypoxia Respiratory failure Hypoxia (Acute) Dyspnea (Acute) Labile hypertension Labile hypertension Elevated troponin (Acute) Anemia (Acute) Anemia Atrial fibrillation with rapid ventricular response Hyperkalemia Cholelithiasis Gallstones Pneumonia Hypertension, uncontrolled BPH with urinary obstruction Decreased appetite Acute renal failure superimposed on stage 4 chronic kidney disease Acute on chronic heart failure with preserved ejection fraction ASCVD (arteriosclerotic cardiovascular disease) Elevated troponin Acute kidney injury Hypertensive urgency CKD (chronic kidney disease) CHF (congestive heart failure) Poorly-controlled hypertension Nausea & vomiting (Acute) Chest pain (Acute) Encounter for pre-operative examination Medical History ESRD (end stage renal disease) on dialysis Penile edema Esophageal dysmotility Slow to wake up after anesthesia Vascular disease, peripheral BPH (benign prostatic hyperplasia) Hiatal hernia Dysphagia Belching continuous x several hours after eating/drinking GERD (gastroesophageal reflux disease) History of kidney cancer 2010 cryoablation therapy; follows with [facility] 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 Lai/Dr. Mancilla History of TIA (transient ischemic attack) 2018 History of myocardial infarction 1992 Hyperlipemia HTN (hypertension) COPD (chronic obstructive pulmonary disease) Surgical History History of tooth extraction History of vascular surgery stent LLE History of esophagogastroduodenoscopy (EGD) History of colonoscopy History of prior ablation treatment History of heart artery stent "quite a few" (2 placed 03/2019 and mult prior to) History of cardiac catheterization most recent 03/2019 at [facility] - 2 stents placed; mult caths at 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 No acute distress Neuro: [place], pt up and ambulating the room, going to the bathroom HEENT: NC/AT CV: RRR Resp: Breath sounds coarse bilaterally, no increased effort of breathing Abdomen: BS+. Soft, nontender, nondistended. No guarding. No organomegaly appreciated. Extremities: No edema in lower extremities bilaterally. Results & Data Results & Data Vital Signs (Past 12 Hours) Vital Signs Temp Pulse Pulse Resp BP BP Pulse Ox 11/07/24 07:45 56 L 13 184/84 H 94 11/07/24 06:44 55 L 18 182/95 H 94 11/07/24 06:43 182/95 H 11/07/24 06:30 56 L 19 94 11/07/24 06:18 56 L 19 188/94 H 93 11/07/24 06:03 56 L 20 167/138 H 92 11/07/24 06:02 57 L 11/07/24 05:54 11/07/24 05:54 11/07/24 05:44 36.8 C 58 L 16 174/73 H 79 L O2 Del Method O2 Flow Rate 11/07/24 07:45 Oxymask 6 11/07/24 06:44 Oxymask 6 11/07/24 06:43 11/07/24 06:30 Room Air 11/07/24 06:18 Oxymask 6 11/07/24 06:03 Oxymask 6 11/07/24 06:02 11/07/24 05:54 Oxymask 6 11/07/24 05:54 Oxymask 6 11/07/24 05:44 Room Air Diagnostic Findings Chest X-Ray 11/07/24 05:57 EXAM: XR chest 1V portable CLINICAL HISTORY: sob TECHNIQUE: Radiograph of chest was acquired. 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 Mild blunting of right costophrenic angle suggestive of mild right pleural effusion. Mild left lower lung zone hazy opacity. No acute osseous abnormality. Midline sternotomy sutures were seen. CVP line is redemonstrated with its tip in the SVC. IMPRESSION: 1. Hazy opacities in right lower zone with mild blunting of right costophrenic angle suggestive of mild right pleural effusion. (Stable) 2. Partial resolution of left lower zone hazy opacity. Electronically signed by Mitch Steiner 11-07-2024 06:59 AM
[2024-11-07] MEDS: POTASSIUM CHLORIDE CRTAB 20 MEQ TABCR PO STA ×2 (09:30→11:28)
--- NOTE | 2024-11-07 10:22 | Nephrology Consultation ---
Date of Consultation November 07, 2024 Assessment & Plan (1) ESRD (end stage renal disease) on dialysis: ESRD on MWF schedule. Did have yesterday. K is low and otherwise BUn and creat not bad either. Has Hypoxia and needing o2 but CXR does not show sig issues with actual CHF/Severe fluid overload. Prognosis is quite poor. he has been on dialysis only for last 3 months so may potentially have extra urine with high dose lasix and metoalzone. Would like to see with highest dose Diuretics --lasix 100 iv q8h and Metoalzone with KCL Supplement to see if it makes any difference with Extra Diuresis. If no response will Stop tomorrow. Normally gets HD MWF and did have yesterday. Will plan dialysis for tomorrow at this point. he does feel tired. on o2 but he feels fine and no resp distress currently. (2) Respiratory failure: Resp failure with hypoxia. Has advanced heart and Lung issues at baseline. CXR does not show severe Issues with CHF. DO need to eval for viral Infections and pneumonia etc. Prognosis is quite poor. Would like to see with highest dose Diuretics --lasix 1 00 iv q8h and Metoalzone with KCL Supplement to see if it makes any difference with Extra Diuresis. Normally gets HD MWF and did have yesterday. Will plan dialysis for tomorrow at this point (3) Hypoxia: History of Present Illness Reason for Consultation: ESRD on dialysis Attending Physician: Madyson Huber MD History of Present Illness 89/M with ESRD on HD--MWF at the [facility] in [place]. last hd was yesterday. Has had sig decline in health recently and was on Hospice but then removed. Currently in SNF. Sent over because of Hypoxia and SOB. BP is high. He has CAD (s/p multiple stents and CABG), PAD s/p bilateral common iliac stents, TIA, bilateral carotid stenosis, ESRD on HD MWF, atrial fibrillation diagnosed in Jul 2024, systolic and diastolic CHF, Advanced COPD. Currently on 5 liters o2. CXR shows Some mild rt pl effusion ( not new). Over the weekend the pt has been nauseous and throwing up without diarrhea. He has also been stating that he has chest pain occasionally. States that the pt was on hospice for one day when he was unresponsive but he spontaneously aroused and they decided to discontinue hospice. They are unsure what caused his to be unresponsive. Son also states that being on hospice would mean they would have to discontinue dialysis and his father does not want that yet. Son states that upon his arrival to the care home he used a pulse ox and noted the pt's oxygen saturation to be in the 70s. He called EMS who started him on oxygen and brought him to the ED. He states that their goal is to get him stabilized and back to the care home with oxygen if needed. ROS--hard to obtain. very hard of hearing. Obtained from H and P Physical Exam Physical Exam: General: Alert, oriented. No acute distress. on 5 liters o2. very hard of hearing HEENT: NC/AT CV: RRR Resp: Breath sounds Diminished and coarse bilaterally, no increased effort of breathing Abdomen: BS+. Soft, nontender, nondistended. No guarding. No organomegaly appreciated. Extremities: 1+ edema in lower extremities bilaterally Dorsal foot area) . Allergies Allergy/AdvReac Type Severity Reaction Status Date / Time ciprofloxacin [From Cipro] AdvReac Vomiting Verified 09/19/20 10:27 Iodinated Contrast Media AdvReac Unknown Verified 09/19/20 10:27 Home Medications Medication Instructions Recorded Confirmed Type acetaminophen 325 mg tablet 325 mg PO QID PRN Pain 09/16/20 11/07/24 History (Tylenol) albuterol 90 mcg/actuation aerosol 90 mcg inhalation Q6H PRN sob 09/16/20 11/07/24 History inhaler amlodipine 5 mg tablet (Norvasc) 5 mg PO BID 09/16/20 11/07/24 History aspirin 81 mg tablet,delayed 81 mg PO BID 09/16/20 11/07/24 History release clopidogrel 75 mg tablet (Plavix) 75 mg PO QAM 09/16/20 11/07/24 History finasteride 5 mg tablet 5 mg PO QAM 09/16/20 11/07/24 History fluticasone 250 mcg-salmeterol 50 1 inh inhalation BID 09/16/20 11/07/24 History mcg/dose blistr powdr for inhalation (Advair Diskus) nitroglycerin 0.4 mg sublingual 0.4 mg sublingual UD PRN Chest Pain 09/16/20 11/07/24 History tablet (Nitrostat) pantoprazole 40 mg tablet,delayed 40 mg PO QAM 09/16/20 11/07/24 History release (Protonix) rosuvastatin 20 mg tablet (Crestor) 20 mg PO QPM 09/16/20 11/07/24 History tamsulosin 0.4 mg capsule 0.4 mg PO QAM 09/16/20 11/07/24 History hydralazine 10 mg tablet 10 mg PO TID 07/09/24 11/07/24 History isosorbide dinitrate 5 mg tablet 5 mg PO TID 07/09/24 11/07/24 History mirtazapine 30 mg tablet 30 mg PO HS #30 tabs 07/27/24 11/07/24 Rx docusate sodium 100 mg tablet 100 mg PO HS 09/20/24 11/07/24 History sucroferric oxyhydroxide 500 mg 500 mg PO TIDM 09/20/24 11/07/24 History chewable tablet (Velphoro) Patient History Medical History ESRD (end stage renal disease) on dialysis Penile edema Esophageal dysmotility Slow to wake up after anesthesia Vascular disease, peripheral BPH (benign prostatic hyperplasia) Hiatal hernia Dysphagia Belching continuous x several hours after eating/drinking GERD (gastroesophageal reflux disease) History of kidney cancer 2010 cryoablation therapy; follows with [facility] nephrology 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 Lai/Dr. Mancilla History of TIA (transient ischemic attack) 2018 History of myocardial infarction 1991 Hyperlipemia HTN (hypertension) COPD (chronic obstructive pulmonary disease) Surgical History History of tooth extraction History of vascular surgery stent LLE History of esophagogastroduodenoscopy (EGD) History of colonoscopy History of prior ablation treatment History of heart artery stent "quite a few" (2 placed 03/2019 and mult prior to) History of cardiac catheterization most recent 03/2019 at [facility] - 2 stents placed; mult caths at [facility]; mult stents (unable to recall specifics) History of coronary artery bypass graft x 3 1996 Family History Other Coronary heart disease No family history of adverse response to anesthesia Social History Smoking Status: Never smoker Second Hand Exposure: No; Do You Dip or Chew Tobacco: No; Hx Alcohol Use: No Hx Substance Use: No Preferred Language: Greek Communication Ability: Effective Supervisor 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 Making Hand Required: No Beliefs That Will Affect Care: None Current Living Situation: [facility] Other Information That Helps Us Care for You: No Feels Safe at Home: Yes Safety Concerns: Feels Safe At This Time Assistive Devices: Denture - Upper, Denture - Lower and Hearing Aid - Bilateral Results & Data Vital Signs (Past 12 Hours) Vital Signs Temp Pulse Pulse Resp BP BP Pulse Ox 11/07/24 09:25 52 L 19 178/82 H 96 11/07/24 07:45 56 L 13 184/84 H 94 11/07/24 06:44 55 L 18 182/95 H 94 11/07/24 06:43 182/95 H 11/07/24 06:30 56 L 19 94 11/07/24 06:18 56 L 19 188/94 H 93 11/07/24 06:03 56 L 20 167/138 H 92 11/07/24 06:02 57 L 11/07/24 05:54 11/07/24 05:54 11/07/24 05:44 36.8 C 58 L 16 174/73 H 79 L O2 Del Method O2 Flow Rate 11/07/24 09:25 Oxymask 6 11/07/24 07:45 Oxymask 6 11/07/24 06:44 Oxymask 6 11/07/24 06:43 11/07/24 06:30 Room Air 11/07/24 06:18 Oxymask 6 11/07/24 06:03 Oxymask 6 11/07/24 06:02 11/07/24 05:54 Oxymask 6 11/07/24 05:54 Oxymask 6 11/07/24 05:44 Room Air Laboratory Results CBC and renal panel Diagnostic Findings CXR
--- NOTE | 2024-11-07 10:26 | Electrocardiogram Report ---
Test Reason : Blood Pressure : */* mmHG Vent. Rate : 58 BPM Atrial Rate : 58 BPM P-R Int : 140 ms QRS Dur : 96 ms QT Int : 474 ms P-R-T Axes : -24 73 27 degrees QTcB Int : 465 ms Sinus bradycardia Poor R wave progression, consider anterior SD vs. lead placement vs. LVH Nonspecific ST abnormality Abnormal ECG When compared with ECG of 21-Sep-2024 05:03, No significant change was found Confirmed by Bernardo Kraft ([id number]) on 11/07/2024 10:25:42 AM Referred By: REFERRED SELF Confirmed By: Bernardo Kraft
[2024-11-07] MEDS ORDERED: ALBUTEROL HFA 8 GM INHALER INH PRN (10:32)
[2024-11-07] MEDS: ONDANSETRON INJ 2 MG/ML 2 ML VIAL IV PRN (11:13)
[2024-11-07] MEDS: metOLazone 5 MG TABLET PO ONE (11:17)
[2024-11-07] MEDS: CLOPIDOGREL BISULFATE 75 MG TAB PO SCH (11:23)
[2024-11-07] MEDS: FUROSEMIDE 40 MG/4 ML VIAL IV SCH (11:23)
[2024-11-07] MEDS: ISOSORBIDE DINITRATE 5 MG TAB PO SCH (11:24)
[2024-11-07] MEDS ORDERED: NON-FORMULARY MEDICATION (Sucroferric Oxyhydroxide [Velphoro] 500 mg tablet,chewable) PO SCH (12:00)
--- NOTE | 2024-11-07 13:53 | Cardiology Consultation ---
Date of Consultation November 07, 2024 Assessment & Plan (1) Acute respiratory failure with hypoxia: (2) Elevated troponin I level: (3) Labile hypertension: (4) Chronic heart failure with preserved ejection fraction: Plan 89-year-old patient admitted with hypoxia. X-ray with possible right lower lobe infiltrate. Mild volume overload on exam with bilateral pedal edema. Recommend further evaluation of possible aspiration and underlying pneumonia. Consider speech/swallow eval. Diuretic therapy ordered by nephrology. Hemodialysis treatment planned for 11/08/2024. Mildly elevated high-sensitivity troponin secondary to hypoxia, type II event, demand ischemia rather than plaque rupture ACS. Echocardiogram demonstrates preserved LV systolic function and normal wall motion. Continue aspirin, clopidogrel, and statin therapy as ordered. Blood pressure remains elevated, however, carvedilol was not ordered on admission and patient has not received doses of amlodipine, or hydralazine, yet today. Scheduled to receive doses of isosorbide monohydrate, and hydralazine at 2 PM. Carvedilol 25 mg twice daily ordered. Clarify dose with patient. possibley taking 37.5 mg twice daily at home. Prasanna Ruiz DO, [facility] History of Present Illness Reason for Consultation: chest pain, elevated troponin Requesting Physician: Madyson Huber MD Attending Physician: Madyson Huber MD History of Present Illness 89-year-old male presents from assisted living facility due to hypoxia overnight. Patient's son who is an RN noticed cyanosis assessing oxygen saturation with pulse oximeter in the 50s. Upon arrival to the ER the room air oxygen saturation was 79% in triage. He was placed on supplemental oxygen with improvement to the 90s. Patient reports shortness of breath and difficulty getting enough air yesterday. Notes occasional cough with minimal sputum production. Also admits to occasionally choking on his food. Denies any difficulty swallowing. No fever, chills, or sick contacts. Denies orthopnea, PND, or weight gain. Mild bilater al pedal edema noted. No palpitations, lightheadedness, dizziness, syncope, or near syncope. Denies chest discomfort or heaviness. No chest pain prior to admission. Cardiology consultation was requested due to elevated troponin. Oxygen saturation currently 96% on 6 L. Chest x-ray with possible right lower lobe infiltrate. Allergies Allergy/AdvReac Type Severity Reaction Status Date / Time ciprofloxacin [From Cipro] AdvReac Vomiting Verified 09/19/20 10:27 Iodinated Contrast Media AdvReac Unknown Verified 09/19/20 10:27 Home Medications Medication Instructions Recorded Confirmed Type acetaminophen 325 mg tablet 325 mg PO QID PRN Pain 09/16/20 11/07/24 History (Tylenol) albuterol 90 mcg/actuation aerosol 90 mcg inhalation Q6H PRN sob 09/16/20 11/07/24 History inhaler amlodipine 5 mg tablet (Norvasc) 5 mg PO BID 09/16/20 11/07/24 History aspirin 81 mg tablet,delayed 81 mg PO BID 09/16/20 11/07/24 History release clopidogrel 75 mg tablet (Plavix) 75 mg PO QAM 09/16/20 11/07/24 History finasteride 5 mg tablet 5 mg PO QAM 09/16/20 11/07/24 History fluticasone 250 mcg-salmeterol 50 1 inh inhalation BID 09/16/20 11/07/24 History mcg/dose blistr powdr for inhalation (Advair Diskus) nitroglycerin 0.4 mg sublingual 0.4 mg sublingual UD PRN Chest Pain 09/16/20 11/07/24 History tablet (Nitrostat) pantoprazole 40 mg tablet,delayed 40 mg PO QAM 09/16/20 11/07/24 History release (Protonix) rosuvastatin 20 mg tablet (Crestor) 20 mg PO QPM 09/16/20 11/07/24 History tamsulosin 0.4 mg capsule 0.4 mg PO QAM 09/16/20 11/07/24 History hydralazine 10 mg tablet 10 mg PO TID 07/09/24 11/07/24 History isosorbide dinitrate 5 mg tablet 5 mg PO TID 07/09/24 11/07/24 History mirtazapine 30 mg tablet 30 mg PO HS #30 tabs 07/27/24 11/07/24 Rx docusate sodium 100 mg tablet 100 mg PO HS 09/20/24 11/07/24 History sucroferric oxyhydroxide 500 mg 500 mg PO TIDM 09/20/24 11/07/24 History chewable tablet (Velphoro) Patient History Medical History ESRD (end stage renal disease) on dialysis Penile edema Esophageal dysmotility Slow to wake up after anesthesia Vascular disease, peripheral BPH (benign prostatic hyperplasia) Hiatal hernia Dysphagia Belching continuous x several hours after eating/drinking GERD (gastroesophageal reflux disease) History of kidney cancer 2010 cryoablation therapy; follows with [facility] nephrology 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 Lai/Dr. Mancilla History of TIA (transient ischemic attack) 2018 History of myocardial infarction 1992 Hyperlipemia HTN (hypertension) COPD (chronic obstructive pulmonary disease) Surgical History History of tooth extraction History of vascular surgery stent LLE History of esophagogastroduodenoscopy (EGD) History of colonoscopy History of prior ablation treatment History of heart artery stent "quite a few" (2 placed 03/2019 and mult prior to) History of cardiac catheterization most recent 03/2019 at [facility] - 2 stents placed; mult caths at [facility]; mult stents (unable to recall specifics) History of coronary artery bypass graft x 3 1996 Family History Other Coronary heart disease No family history of adverse response to anesthesia Social History Smoking Status: Never smoker Second Hand Exposure: No; Do You Dip or Chew Tobacco: No; Hx Alcohol Use: No Hx Substance Use: No Preferred Language: Macedonian Communication Ability: Effective 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 Beliefs That Will Affect Care: None Current Living Situation: Jail Other Information That Helps Us Care for You: No Feels Safe at Home: Yes Safety Concerns: Feels Safe At This Time Assistive Devices: Denture - Upper, Denture - Lower and Hearing Aid - Bilateral Review of Systems Review of Systems: All systems reviewed & are unremarkable except as noted in Subjective Physical Exam Constitutional: well nourished; no acute distress Respiratory: no respiratory distress, no labored breathing and no retractions Auscultation: + crackles (Right base); no rhonchi and no wheezes Cardiovascular: Rate/Rhythm: regular rate, regular rhythm and + bradycardic Heart Sounds: normal S1, normal S2 and + murmur (2/6Systolic ejection murmur heard best at the right second intercostal spac) Vessels: radial pulses present; no JVD Extremities: + edema (1+ B/L pedal edema) Gastrointestinal (Abdomen): Inspection/Auscultation: abdomen normal to inspection; abdomen not distended Percussion/Palpation: abdomen soft; abdomen nontender, no guarding and abdomen not rigid Neurologic: CN's II-XI intact bilaterally and moves all extremities; no focal motor deficits Results & Data Vital Signs (Past 12 Hours) Vital Signs Temp Pulse Pulse Resp BP BP Pulse Ox 11/07/24 12:15 53 L 11/07/24 10:30 11/07/24 09:25 52 L 19 178/82 H 96 11/07/24 07:45 56 L 13 184/84 H 94 11/07/24 07:00 36.5 C 55 L 20 181/69 H 91 11/07/24 06:44 55 L 18 182/95 H 94 11/07/24 06:43 182/95 H 11/07/24 06:30 56 L 19 94 11/07/24 06:18 56 L 19 188/94 H 93 11/07/24 06:03 56 L 20 167/138 H 92 11/07/24 06:02 57 L 11/07/24 05:54 11/07/24 05:54 11/07/24 05:44 36.8 C 58 L 16 174/73 H 79 L O2 Del Method O2 Flow Rate 11/07/24 12:15 11/07/24 10:30 Oxymask 6 11/07/24 09:25 Oxymask 6 11/07/24 07:45 Oxymask 6 11/07/24 07:00 Oxymask 6 11/07/24 06:44 Oxymask 6 11/07/24 06:43 11/07/24 06:30 Room Air 11/07/24 06:18 Oxymask 6 11/07/24 06:03 Oxymask 6 11/07/24 06:02 11/07/24 05:54 Oxymask 6 11/07/24 05:54 Oxymask 6 11/07/24 05:44 Room Air Laboratory Results Cardiac Enzymes 11/07/24 11/07/2411/07/25 Range/Units 06:01 09:34 12:18 AST 8 L (13-39) U/L Troponin I High Sens 197.6 H* 166.7 H* (0-20) pg/ml B-Natriuretic Peptide 1848 H (0-100) pg/ml Coagulation 11/07/24 11/07/24 Range/Units 06:01 09:34 PT 11.0 (9.0-12.0) Seconds B-Natriuretic Peptide 1848 H (0-100) pg/ml CBC 11/07/24 Range/Units 06:01 WBC 5.56 (4.8-10.8) K/ul RBC 2.87 L (4.70-6.10) M/uL Hgb 9.4 L (14.0-18.0) g/dl Hct 27.7 L (42.0-52.0) % Plt Count 182 (130-400) K/uL Neut # (Auto) 3.88 (1.40-6.50) K/uL Lymph # (Auto) 0.84 L (1.20-3.40) K/uL [place] # (Auto) 0.65 H (0.11-0.59) K/uL Eos # (Auto) 0.14 (0.00-0.50) K/uL Baso # (Auto) 0.03 (0.00-0.20) K/uL Comprehensive Metabolic Panel 11/07/24 Range/Units 06:01 Sodium 140 (136-145) mmol/L Potassium 3.3 L (3.5-5.1) mmol/L Chloride 96 L (98-107) mmol/L Carbon Dioxide 37 H (21-32) mmol/L BUN 12 (6-23) mg/dl Creatinine 3.08 H (0.6-1.4) mg/dl Glucose 96 (70-99(Fasting)) mg/dl Calcium 9.0 (8.6-10.3) mg/dl AST 8 L (13-39) U/L ALT 6 L (7-52) U/L Alkaline Phosphatase 52 (34-104) U/L Total Protein 6.3 (6.0-8.3) gm/dl Albumin 3.9 (3.4-5.0) gm/dl Intake and Output 11/06/24 11/07/24 11/07/24 22:59 06:59 14:59 Other: Weight 61.7 kg 61.7 kg Weight Measurement Method Built in Bedscale Built in Bedscale Patient Weight 11/08/24 06:59 Weight 61.7 kg
[2024-11-07] MEDS: hydrALAZINE 10 MG TAB PO SCH (14:27)
[2024-11-07] MEDS: carvediloL 25 MG TAB PO SCH (17:50)
[2024-11-07] MEDS: AMPICILLIN/SULBACTAM SOD 3,000 MG/100 ML BAG IV SCH (18:12)
[2024-11-07] MEDS: ASPIRIN 81 MG ECTAB PO SCH (20:59)
[2024-11-07] MEDS: MIRTAZAPINE TAB 15 MG TAB PO SCH (20:59)
[2024-11-07] MEDS: HEPARIN SOD 5,000 UNIT/0.5 ML VIAL SQ SCH (20:59)
[2024-11-07] MEDS: ROSUVASTATIN CALCIUM 20 MG TAB PO SCH (20:59)
[2024-11-07] MEDS: amLODIPine BESYLATE 5 MG TAB PO SCH (21:00)
[2024-11-07] MEDS: DOCUSATE SODIUM 100 MG CAP PO SCH (21:00)
[2024-11-08 06:19] LABS: Basophils # (auto) 0.03 K/uL (0.00-0.20); Basophils % (auto) 0.6 %; Eosinophils # (auto) 0.27 K/uL (0.00-0.50); Eosinophils % (auto) 5.7 %; Hematocrit (blood only) 24.4 % (42.0-52.0); Hemoglobin 8.3 g/dl (14.0-18.0); Immature Granulocytes # (auto) 0.02 K/uL (0.01-0.20); Immature Granulocytes % (auto) 0.4 %; Lymphocytes # (auto) 0.73 K/uL (1.20-3.40); Lymphocytes % (auto) 15.5 %; Mean Corpuscular Hemoglobin 32.9 pg (25.0-34.0); Mean Corpuscular Volume 96.8 fL (80.0-100.0); Mean Platelet Volume 9.3 fL (9.4-12.4); Monocytes # (auto) 0.76 K/uL (0.11-0.59); Monocytes % (auto) 16.1 %; Neutrophils # (auto) 2.91 K/uL (1.40-6.50); Neutrophils % (auto) 61.7 %; Platelet Count 178 K/uL (130-400); RDW Coefficient of Variation 14.5 % (11.5-14.5); RDW Standard Deviation 51.2 fL (36.4-46.3); Red Blood Count 2.52 M/uL (4.70-6.10); White Blood Count 4.72 K/ul (4.8-10.8)
[2024-11-08 06:38] LABS: Albumin Globulin Ratio 1.6 (0.9-2); Albumin Level 3.1 gm/dl (3.4-5.0); BUN Creatinine Ratio 5.2 (10-20); Bilirubin,Total 0.4 mg/dl (0.2-1.0); Calcium 8.4 mg/dl (8.6-10.3); Creatinine Clr Calc Pharmacy 11.5 ml/min; Magnesium 1.9 mg/dl (1.7-2.4); Phosphorus 3.4 mg/dl (2.5-4.9); Potassium 3.5 mmol/L (3.5-5.1); Total Protein 5.1 gm/dl (6.0-8.3)
[2024-11-08] MEDS ORDERED: SODIUM CHLORIDE 0.9% 1,000 ML IV PRN (07:00)
[2024-11-08] MEDS: FINASTERIDE 5 MG TAB PO SCH (08:21)
[2024-11-08] MEDS: FLUTICASONE/VILANTEROL 200/25MCG 14 PUFFS/INHALER INH SCH (08:22)
[2024-11-08] MEDS: TAMSULOSIN HCL 0.4 MG CAP PO SCH (08:23)
[2024-11-08] MEDS: PANTOprazole 40 MG TAB PO SCH (08:23)
[2024-11-08] MEDS: hydrALAZINE 10 MG TAB PO SCH (09:32)
--- NOTE | 2024-11-08 10:58 | Nephrology Progress Note ---
Date of Service November 08, 2024 Assessment & Plan Admission and Anticipated Discharge Date Admission Date: November 07, 2024 Subjective Assessment & Plan (1) ESRD (end stage renal disease) on dialysis: ESRD on MWF schedule. Did have yesterday. K is low and otherwise BUn and creat not bad either. Has Hypoxia and needing o2 but CXR does not show sig issues with actual CHF/Severe fluid overload. Prognosis is quite poor. he has been on dialysis only for last 3 months so may potentially have extra urine with high dose lasix and metoalzone. I put her on the highest dose Diuretics --lasix 100 iv q8h and Metolazone with KCL Supplement to see if it makes any difference with Extra Diuresis. making more urine but not sure about the exact amount. Normally gets HD MWF and did have yesterday. Will plan dialysis for tomorrow at this point. he does feel tired. on o2 but he feels fine and no resp distress currently. (2) Respiratory failure: Resp failure with hypoxia. Has advanced heart and Lung issues at baseline. CXR does not show severe Issues with CHF. DO need to eval for viral Infections and pneumonia etc. Prognosis is quite poor. Would like to see with highest dose Diuretics --lasix 100 iv q8h and Metoalzone with KCL Supplement to see if it makes any difference with Extra Diuresis. Normally gets HD MWF and did have On wednesday. will do later today. S----ROS--hard to obtain. very hard of hearing. Bp is better now and still needing 5 liters o2 Physical Exam Physical Exam: General: Alert, oriented. No acute distress. on 5 liters o2. very hard of hearing HEENT: NC/AT CV: RRR Resp: Breath sounds Diminished and coarse bilaterally, no increased effort of breathing Abdomen: BS+. Soft, nontender, nondistended. No guarding. No organomegaly appreciated. Extremities: No edema now. Results & Data Vital Signs (Past 12 Hours) Vital Signs Temp Pulse Pulse Resp BP Pulse Ox Pulse Ox 11/08/24 08:31 36.9 C 58 L 20 147/53 H 93 11/08/24 07:10 55 L 11/08/24 07:10 11/08/24 03:00 36.4 C L 56 L 16 179/71 H 94 11/08/24 00:00 96 O2 Del Method O2 Del Method O2 Flow Rate O2 Flow Rate 11/08/24 08:31 Nasal Cannula 5 11/08/24 07:10 11/08/24 07:10 Nasal Cannula 5 11/08/24 03:00 Nasal Cannula 5 11/08/24 00:00 Nasal Cannula 5
[2024-11-08] MEDS ORDERED: EPOETIN ALFA 20,000 UNITS in SYRINGE 0 ML IV SCH (11:15)
--- NOTE | 2024-11-08 11:57 | Cardiology Progress Note ---
Date of Service November 08, 2024 Assessment & Plan (1) Acute respiratory failure with hypoxia: (2) Elevated troponin I level: (3) Labile hypertension: (4) Chronic heart failure with preserved ejection fraction: Plan 89-year-old patient admitted with hypoxia. X-ray with possible right lower lobe infiltrate. Mild volume overload on exam with bilateral pedal edema. Recommend further evaluation of possible aspiration and underlying pneumonia. Consider speech/swallow eval. Mildly elevated high-sensitivity troponin secondary to hypoxia, type II event, demand ischemia rather than plaque rupture ACS. Echocardiogram demonstrates preserved LV systolic function and normal wall motion. Continue aspirin, clopidogrel, and statin therapy as ordered. Diuretic therapy ordered by nephrology. Hemodialysis treatment 11/07/24. Scheduled for additional hemodialysis treatment tomorrow 11/09/24 Blood pressure remains elevated. Titrate hydralazine and 20 mg 3 times daily. Continue carvedilol, isosorbide dinitrate, and amlodipine as ordered. Prasanna Ruiz DO, [facility] Admission and Anticipated Discharge Date Admission Date: November 07, 2024 Subjective 89-year-old male seen examined at the bedside. Continues to require 5 iters nasal cannula. Diuretics increased from nephrology and received hemodialysis treatment yesterday. Sputum production. No orthopnea or PND. Denies chest pain or palpitations. Telemetry reveals sinus bradycardia. Blood pressure elevated overnight. Review of Systems 2 Review of Systems: All systems reviewed & are unremarkable except as noted in Subjective Physical Exam Constitutional: well nourished; no acute distress Respiratory: no respiratory distress, no labored breathing and no retractions Auscultation: + crackles (Right base); no rhonchi and no wheezes Cardiovascular: Rate/Rhythm: regular rate, regular rhythm and + bradycardic Heart Sounds: normal S1, normal S2 and + murmur (2/6Systolic ejection murmur heard best at the right second intercostal spac) Vessels: radial pulses present; no JVD Extremities: + edema (1+ B/L pedal edema) Gastrointestinal (Abdomen): Inspection/Auscultation: abdomen normal to insp ection; abdomen not distended Percussion/Palpation: abdomen soft; abdomen nontender, no guarding and abdomen not rigid Neurologic: CN's II-XI intact bilaterally and moves all extremities; no focal motor deficits Results & Data Vital Signs (Past 12 Hours) Vital Signs Temp Pulse Pulse Resp BP Pulse Ox Pulse Ox 11/08/24 08:31 36.9 C 58 L 20 147/53 H 93 11/08/24 07:10 55 L 11/08/24 07:10 11/08/24 03:00 36.4 C L 56 L 16 179/71 H 94 11/08/24 00:00 96 O2 Del Method O2 Del Method O2 Flow Rate O2 Flow Rate 11/08/24 08:31 Nasal Cannula 5 11/08/24 07:10 11/08/24 07:10 Nasal Cannula 5 11/08/24 03:00 Nasal Cannula 5 11/08/24 00:00 Nasal Cannula 5 Laboratory Results Cardiac Enzymes 11/07/24 11/08/24 Range/Units 12:18 05:50 AST 6 L (13-39) U/L Troponin I High Sens 166.7 H* (0-20) pg/ml CBC 11/08/24 Range/Units 05:50 WBC 4.72 L (4.8-10.8) K/ul RBC 2.52 L (4.70-6.10) M/uL Hgb 8.3 L (14.0-18.0) g/dl Hct 24.4 L (42.0-52.0) % Plt Count 178 (130-400) K/uL Neut # (Auto) 2.91 (1.40-6.50) K/uL Lymph # (Auto) 0.73 L (1.20-3.40) K/uL [place] # (Auto) 0.76 H (0.11-0.59) K/uL Eos # (Auto) 0.27 (0.00-0.50) K/uL Baso # (Auto) 0.03 (0.00-0.20) K/uL Comprehensive Metabolic Panel 11/08/24 Range/Units 05:50 Sodium 141 (136-145) mmol/L Potassium 3.5 (3.5-5.1) mmol/L Chloride 100 (98-107) mmol/L Carbon Dioxide 35 H (21-32) mmol/L BUN 20 (6-23) mg/dl Creatinine 3.87 H D (0.6-1.4) mg/dl Glucose 80 (70-99(Fasting)) mg/dl Calcium 8.4 L (8.6-10.3) mg/dl AST 6 L (13-39) U/L ALT 5 L (7-52) U/L Alkaline Phosphatase 42 (34-104) U/L Total Protein 5.1 L (6.0-8.3) gm/dl Albumin 3.1 L (3.4-5.0) gm/dl Intake and Output 11/07/24 11/08/24 11/08/24 22:59 06:59 14:59 Intake Total 100 / 540 200 / 540 Balance 100 / 538 200 / 538 Intake: IV 100 / 300 200 / 300 Ampicillin/Sulbactam Sod 3,000 100 / 300 200 / 300 mg In 100 ml @ 200 mls/hr IV Q6H [facility] Rx#:[id number] Other: # Unmeasured Voids 2 4
--- NOTE | 2024-11-08 14:55 | Hospitalist Progress Note ---
Date of Service November 08, 2024 Assessment & Plan (1) Elevated troponin: (2) Hypoxia: Plan Pt is an 89yo M with a complex PMHx significant for CAD (s/p multiple stents and CABG), PAD s/p bilateral common iliac stents, TIA, bilateral carotid stenosis, ESRD on HD MWF, atrial fibrillation diagnosed in Jul 2024, systolic and diastolic CHF, COPD, GERD [facility] with concern for acute respiratory failure. Acute hypoxic respiratory Failure Acute on Chronic Congestive Heart Failure Pneumonia Pt with reported hypoxia to the 50s and 60s at home VBG noting pH 7.46, pCO2 51, HCO3 36 Chest XRAY with Hazy opacities in right lower zone with mild blunting of right costophrenic angle suggestive of mild right pleural effusion. (Stable) BNP [address] chest Procalcitonin 0.12 Received a dose of IV Lasix in the ED, monitor output Cardiology consulted, appreciate further recs - 89-year-old patient admitted with hypoxia. X-ray with possible right lower lobe infiltrate. Mild volume overload on exam with bilateral pedal edema. Recommend further evaluation of possible aspiration and underlying pneumonia. Consider speech/swallow eval. Mildly elevated high-sensitivity troponin secondary to hypoxia, type II event, demand ischemia rather than plaque rupture ACS. Echocardiogram demonstrates preserved LV systolic function and normal wall motion. Continue aspirin, clopidogrel, and statin therapy as ordered. Diuretic therapy ordered by nephrology. Hemodialysis. Blood pressure remains elevated. Titrate hydralazine and 20 mg 3 times daily. Continue carvedilol, isosorbide dinitrate, and amlodipine as ordered. Oxygen supplementation as needed Daily weights, Is and Os Speech consult Empiric Unasyn Continue to monitor ESRD on HD MWF getting dialysis Nephrology consulted with volume overload, appreciate recs - on HD + diuretics Continue Velphoro TIDM Hypokalemia Replete and monitor obstructive CAD s/p CABG 1996, CHARMAINE 2018 Chest pain Elevated troponin, likely multifactorial History of complex CAD history including multiple stents and CABG Intermittent pain for the past few days per son Son states has been getting multiple doses of nitro at the residence Troponin elevated, likely demand in the setting of above Continue aspirin, statin, carvedilol, isosorbide/hydralazine Cardiology consulted, appreciate recs, as above PAD s/p bilateral common iliac stents Continue with aspirin and plavix Anemia of chronic disease Has been receiving IV iron infusions as outpatient Per recent cards communication, recommend hgb >10 given CAD Monitor H& H Continue other home meds DVT Ppx: SC heparin Code status: DNR/DNI Dispo: admit to PCU/tele Admission and Anticipated Discharge Date Admission Date: November 07, 2024 Subjective Pt seen in follow up of hypoxia, pna, on HD concern for aspiration currently still on 5L cardiology, nephrology following Pt seen on HD. Lying in NAD, awake, alert, repots feeling comfortable denies chest pain, abd. pain Discussed w/ son and dil in detail at the bedside, provided additional hx Review of Systems Review of Systems: All systems reviewed & are unremarkable except as noted in Subjective Physical Exam Physical Exam: General: Alert, oriented. No acute distress Neuro: awake, alert, EGEGIK, pt up and ambulating the room, going to the bathroom HEENT: NC/AT CV: RRR Resp: decreased breath sounds, no increased effort of breathing Abdomen: BS+. Soft, nontender, nondistended. Extremities: No edema in lower extremities bilaterally. Neuro: awake, alert, answers appropriately, EGEGIK, moves extremities Results & Data Results & Data Vital Signs (Past 12 Hours) Vital Signs Temp Pulse Pulse Resp BP Pulse Ox Pulse Ox 11/08/24 11:56 36.7 C 65 20 156/65 H 98 11/08/24 08:31 36.9 C 58 L 20 147/53 H 93 11/08/24 08:00 97 11/08/24 07:10 55 L 11/08/24 07:10 11/08/24 03:00 36.4 C L 56 L 16 179/71 H 94 O2 Del Method O2 Del Method O2 Flow Rate O2 Flow Rate 11/08/24 11:56 Nasal Cannula 5 11/08/24 08:31 Nasal Cannula 5 11/08/24 08:00 Nasal Cannula 5 11/08/24 07:10 11/08/24 07:10 Nasal Cannula 5 11/08/24 03:00 Nasal Cannula 5 Laboratory Results 11/08/24 11/07/24 11/07/24 Range/Units 05:50 18:12 12:18 WBC 4.72 L (4.8-10.8) K/ul RBC 2.52 L (4.70-6.10) M/uL Hgb 8.3 L (14.0-18.0) g/dl Hct 24.4 L (42.0-52.0) % MCV 96.8 (80.0-100.0) fL MCH 32.9 (25.0-34.0) pg MCHC 34.0 (32.0-36.0) g/dL RDW Std Deviation 51.2 H (36.4-46.3) fL RDW Coeff of Jessica 14.5 (11.5-14.5) % Plt Count 178 (130-400) K/uL MPV 9.3 L (9.4-12.4) fL Immature Gran % (Auto) 0.4 % Neut % (Auto) 61.7 % Lymph % (Auto) 15.5 % [place] % (Auto) 16.1 % Eos % (Auto) 5.7 % Baso % (Auto) 0.6 % Neut # (Auto) 2.91 (1.40-6.50) K/uL Lymph # (Auto) 0.73 L (1.20-3.40) K/uL [place] # (Auto) 0.76 H (0.11-0.59) K/uL Eos # (Auto) 0.27 (0.00-0.50) K/uL Baso # (Auto) 0.03 (0.00-0.20) K/uL Immature Gran # (Auto) 0.02 (0.01-0.20) K/uL Sodium 141 (136-145) mmol/L Potassium 3.5 (3.5-5.1) mmol/L Chloride 100 (98-107) mmol/L Carbon Dioxide 35 H (21-32) mmol/L Anion Gap 6 (3-11) BUN 20 (6-23) mg/dl Creatinine 3.87 H D (0.6-1.4) mg/dl Est Cr Clr Drug Dosing 11.5 ml/min eGFR 14.27 BUN/Creatinine Ratio 5.2 L (10-20) Glucose 80 (70-99(Fasting)) mg/dl Calcium 8.4 L (8.6-10.3) mg/dl Phosphorus 3.4 (2.5-4.9) mg/dl Magnesium 1.9 (1.7-2.4) mg/dl Total Bilirubin 0.4 (0.2-1.0) mg/dl AST 6 L (13-39) U/L ALT 5 L (7-52) U/L Alkaline Phosphatase 42 (34-104) U/L Total Protein 5.1 L (6.0-8.3) gm/dl Albumin 3.1 L (3.4-5.0) gm/dl Globulin 2.0 L (2.5-4.0) gm/dl Albumin/Globulin Ratio 1.6 (0.9-2) Procalcitonin 0.12 (0-0.5) ng/ml Nasal Screen MRSA (PCR) Negative (Negative) Medications Administered Current Inpatient Medications Acetaminophen (Acetaminophen 325 Mg Tab) 325 mg PO QID PRN PRN Reason: Pain Stop: 12/07/24 10:20 Albuterol (Albuterol Hfa 8 Gm Inhaler) 1 puffs INH Q6H PRN PRN Reason: sob Stop: 12/07/24 10:31 Amlodipine Besylate (Amlodipine Besylate 5 Mg Tab) 5 mg PO BID [facility] Stop: 12/07/24 20:59 Last Admin: 11/08/24 08:21 Dose: 5 mg Aspirin (Aspirin 81 Mg Ectab) 81 mg PO BID [facility] Stop: 12/07/24 20:59 Last Admin: 11/08/24 08:21 Dose: 81 mg Carvedilol (Carvedilol 25 Mg Tab) 25 mg PO BIDM [facility] Stop: 12/07/24 16:59 Last Admin: 11/08/24 08:21 Dose: 25 mg Clopidogrel Bisulfate (Clopidogrel Bisulfate 75 Mg Tab) 75 mg PO QAM [facility] Stop: 12/07/24 10:20 Last Admin: 11/08/24 08:21 Dose: 75 mg Docusate Sodium (Docusate Sodium 100 Mg Cap) 100 mg PO HS [facility] Stop: 12/07/24 20:59 Last Admin: 11/07/24 21:00 Dose: Not Given Epoetin Finn (Epoetin Finn 20,000 Units/Ml Vial) 20,000 units IV TODAY@ [facility] Stop: 12/08/24 11:14 Finasteride (Finasteride 5 Mg Tab) 5 mg PO QAM [facility] Stop: 12/08/24 08:59 Last Admin: 11/08/24 08:21 Dose: 5 mg Fluticasone/Vilanterol (Fluticasone/Vilanterol 200/25mcg 14 Puffs/Inhaler) 1 puffs INH DAILY [facility] Stop: 12/08/24 08:59 Last Admin: 11/08/24 08:22 Dose: 1 puffs Furosemide (Furosemide 40 Mg/4 Ml Vial) 100 mg IV Q8H [facility] Stop: 12/07/24 10:29 Last Admin: 11/08/24 09:50 Dose: 100 mg Heparin Sodium (Porcine) (Heparin Sod 5,000 Unit/0.5 Ml Vial) 5,000 units SQ Q12 [facility] Stop: 12/07/24 20:59 Last Admin: 11/08/24 08:23 Dose: Not Given Hydralazine HCl (Hydralazine 10 Mg Tab) 20 mg PO TID [facility] Stop: 12/08/24 08:59 Last Admin: 11/08/24 13:49 Dose: 20 mg Sodium Chloride (Nss) 1,000 mls @ 0 mls/hr IV .Q0M PRN PRN Reason: For Hemodialysis Use ONLY Stop: 11/14/24 06:59 Ampicillin Sodium/Sulbactam Sodium (Unasyn) 3,000 mg in 100 mls @ 200 mls/hr IV Q24H [facility] Stop: 11/13/24 17:59 Isosorbide Dinitrate (Isosorbide Dinitrate 5 Mg Tab) 5 mg PO DAILY@0700,1200,17 00 [facility] Stop: 12/07/24 11:59 Last Admin: 11/08/24 14:12 Dose: 5 mg Mirtazapine (Mirtazapine Tab 15 Mg Tab) 30 mg PO HS [facility] Stop: 12/07/24 20:59 Last Admin: 11/07/24 20:59 Dose: 30 mg Ondansetron HCl (Ondansetron Inj 2 Mg/Ml 2 Ml Vial) 4 mg IV Q6H PRN PRN Reason: Nausea And Vomiting Stop: 12/07/24 10:30 Last Admin: 11/07/24 11:13 Dose: 4 mg Pantoprazole Sodium (Pantoprazole 40 Mg Tab) 40 mg PO QAM [facility] Stop: 12/08/24 08:59 Last Admin: 11/08/24 08:23 Dose: 40 mg Rosuvastatin Calcium (Rosuvastatin Calcium 20 Mg Tab) 20 mg PO QPM [facility] Stop: 12/07/24 20:59 Last Admin: 11/07/24 20:59 Dose: 20 mg Tamsulosin HCl (Tamsulosin Hcl 0.4 Mg Cap) 0.4 mg PO QAM [facility] Stop: 12/08/24 08:59 Last Admin: 11/08/24 08:23 Dose: 0.4 mg
[2024-11-08] MEDS: EPOETIN ALFA 20,000 UNITS/ML VIAL IV SCH (17:47)
[2024-11-08] MEDS ORDERED: AMPICILLIN/SULBACTAM SOD 3,000 MG/100 ML BAG IV SCH (18:00)
[2024-11-08] MEDS: AMPICILLIN/SULBACTAM SOD 3,000 MG/100 ML BAG IV SCH (18:25)
[2024-11-08] MEDS: NITROGLYCERIN SL 0.4 MG/TAB TAB SL STA (21:04)
[2024-11-08] MEDS: NITROGLYCERIN SL 0.4 MG/TAB TAB ONE (21:24)
--- NOTE | 2024-11-09 05:52 | Hospitalist Progress Note ---
Date of Service November 09, 2024 Assessment & Plan (1) Elevated troponin: (2) Hypoxia: Plan Pt is an 89yo M with a complex PMHx significant for CAD (s/p multiple stents and CABG), PAD s/p bilateral common iliac stents, TIA, bilateral carotid stenosis, ESRD on HD MWF, atrial fibrillation diagnosed in Jul 2024, systolic and diastolic CHF, COPD, GERD presenting [facility] with concern for acute respiratory failure. Acute hypoxic respiratory Failure Acute on Chronic Congestive Heart Failure Pneumonia Pt with reported hypoxia to the 50s and 60s at home VBG noting pH 7.46, pCO2 51, HCO3 36 Chest XRAY with Hazy opacities in right lower zone with mild blunting of right costophrenic angle suggestive of mild right pleural effusion. (Stable) BNP [address] chest Procalcitonin 0.12 Received a dose of IV Lasix in the ED, monitor output Cardiology consulted, appreciate further recs - 89-year-old patient admitted with hypoxia. X-ray with possible right lower lobe infiltrate. Mild volume overload on exam with bilateral pedal edema. Recommend further evaluation of possible aspiration and underlying pneumonia. Consider speech/swallow eval. Developed Afib with rapid ventricular response on 424 AM Patient subsequently spontaneously converted to sinus rhythm. Sinus bradycardia noted at rest. Recommend amiodarone 200 mg twice daily. Reduce carvedilol to 12.5 mg twice daily to avoid significant/symptomatic bradycardia. Patient is not a strong candidate for long-term anticoagulation due to fall risk, chronic anemia, and frailty. Recent fall noted per discussion with patient's son. Continue dual antiplatelet therapy as previously ordered. Mildly elevated high-sensitivity troponin secondary to hypoxia, type II event, demand ischemia rather than plaque rupture ACS. Echocardiogram demonstrates preserved LV systolic function and normal wall motion. Continue aspirin, clopidogrel, and statin therapy as ordered. Diuretic therapy ordered by nephrology. Hemodialysis. Torsemide. Blood pressure remains elevated. Titrate hydralazine and 20 mg 3 times daily. Continue carvedilol, isosorbide dinitrate, and amlodipine as ordered. Oxygen supplementation as needed Daily weights, Is and Os Speech consult Empiric Unasyn Continue to monitor ESRD on HD MWF getting dialysis Nephrology consulted with volume overload, appreciate recs - on HD + diuretics Continue Velphoro TIDM Hypokalemia Replete and monitor obstructive CAD s/p CABG 1996, CHARMAINE 2018 Chest pain Elevated troponin, likely multifactorial History of complex CAD history including multiple stents and CABG Intermittent pain for the past few days per son Son states has been getting multiple doses of nitro at the residence Troponin elevated, likely demand in the setting of above Continue aspirin, statin, carvedilol, isosorbide/hydralazine Cardiology consulted, appreciate recs, as above PAD s/p bilateral common iliac stents Continue with aspirin and plavix Anemia of chronic disease Has been receiving IV iron infusions as outpatient Per recent cards communication, recommend hgb >10 given CAD Monitor H& H Continue other home meds DVT Ppx: SC heparin Code status: DNR/DNI Dispo: PCU Admission and Anticipated Discharge Date Admission Date: November 07, 2024 Subjective Pt seen in follow up of hypoxia, pna, on HD concern for aspiration currently down to 3L cardiology, nephrology following Lying in NAD, awake, alert, repots feeling comfortable denies chest pain, abd. pain Discussed w/ son and dil yesterday in detail at the bedside, provided additional hx This AM - pt went to Afib - then converted back to sinus - cardiology following - amiodarone + carvedilol Nephro following for HD, also currently on torsemide Review of Systems Review of Systems: All systems reviewed & are unremarkable except as noted in Subjective Physical Exam Physical Exam: General: Alert, oriented. No acute distress HEENT: NC/AT CV: RRR Resp: decreased breath sounds, no increased effort of breathing Abdomen: BS+. Soft, nontender, nondistended. Extremities: No edema in lower extremities bilaterally. Neuro: awake, alert, answers appropriately, [place], moves extremities Skin: warm, dry Results & Data Results & Data Vital Signs (Past 12 Hours) Vital Signs Temp Pulse Resp BP Pulse Ox O2 Del Method O2 Flow Rate 11/09/24 05:35 155/65 H 11/09/24 03:16 36.3 C L 64 19 181/70 H 91 Nasal Cannula 5 11/08/24 23:31 Nasal Cannula 5 11/08/24 22:58 36.5 C 57 L 16 168/73 H 94 Nasal Cannula 5 11/08/24 19:20 36.8 C 63 18 131/49 L 91 Nasal Cannula 5 11/08/24 19:15 Nasal Cannula 5 Laboratory Results 11/10/24 Range/Units 05:47 WBC 4.71 L (4.8-10.8) K/ul RBC 2.61 L (4.70-6.10) M/uL Hgb 8.7 L (14.0-18.0) g/dl Hct 25.2 L (42.0-52.0) % MCV 96.6 (80.0-100.0) fL MCH 33.3 (25.0-34.0) pg MCHC 34.5 (32.0-36.0) g/dL RDW Std Deviation 51.3 H (36.4-46.3) fL RDW Coeff of Jessica 14.6 H (11.5-14.5) % Plt Count 158 (130-400) K/uL MPV 9.3 L (9.4-12.4) fL Immature Gran % (Auto) 1.3 % Neut % (Auto) 58.3 % Lymph % (Auto) 18.0 % [place] % (Auto) 15.9 % Eos % (Auto) 5.7 % Baso % (Auto) 0.8 % Neut # (Auto) 2.74 (1.40-6.50) K/uL Lymph # (Auto) 0.85 L (1.20-3.40) K/uL [place] # (Auto) 0.75 H (0.11-0.59) K/uL Eos # (Auto) 0.27 (0.00-0.50) K/uL Baso # (Auto) 0.04 (0.00-0.20) K/uL Immature Gran # (Auto) 0.06 (0.01-0.20) K/uL Sodium 140 (136-145) mmol/L Potassium 3.6 (3.5-5.1) mmol/L Chloride 102 (98-107) mmol/L Carbon Dioxide 31 (21-32) mmol/L Anion Gap 7 (3-11) BUN 20 (6-23) mg/dl Creatinine 4.39 H D (0.6-1.4) mg/dl Est Cr Clr Drug Dosing 10.2 ml/min eGFR 12.27 BUN/Creatinine Ratio 4.6 L (10-20) Glucose 88 (70-99(Fasting)) mg/dl Calcium 8.3 L (8.6-10.3) mg/dl Phosphorus 3.4 (2.5-4.9) mg/dl Magnesium 1.9 (1.7-2.4) mg/dl Total Bilirubin 0.3 (0.2-1.0) mg/dl AST 7 L (13-39) U/L ALT 3 L (7-52) U/L Alkaline Phosphatase 39 (34-104) U/L Total Protein 5.2 L (6.0-8.3) gm/dl Albumin 3.2 L (3.4-5.0) gm/dl Globulin 2.0 L (2.5-4.0) gm/dl Albumin/Globulin Ratio 1.6 (0.9-2) Medications Administered Current Inpatient Medications Acetaminophen (Acetaminophen 325 Mg Tab) 325 mg PO QID PRN PRN Reason: Pain Stop: 12/07/24 10:20 Albuterol (Albuterol Hfa 8 Gm Inhaler) 1 puffs INH Q6H PRN PRN Reason: sob Stop: 12/07/24 10:31 Amlodipine Besylate (Amlodipine Besylate 5 Mg Tab) 5 mg PO BID [facility] Stop: 12/07/24 20:59 Last Admin: 11/08/24 21:03 Dose: 5 mg Aspirin (Aspirin 81 Mg Ectab) 81 mg PO BID [facility] Stop: 12/07/24 20:59 Last Admin: 11/08/24 21:03 Dose: 81 mg Carvedilol (Carvedilol 25 Mg Tab) 25 mg PO BIDM [facility] Stop: 12/07/24 16:59 Last Admin: 11/08/24 18:21 Dose: 25 mg Clopidogrel Bisulfate (Clopidogrel Bisulfate 75 Mg Tab) 75 mg PO QAM [facility] Stop: 12/07/24 10:20 Last Admin: 11/08/24 08:21 Dose: 75 mg Docusate Sodium (Docusate Sodium 100 Mg Cap) 100 mg PO HS [facility] Stop: 12/07/24 20:59 Last Admin: 11/08/24 21:29 Dose: Not Given Epoetin Finn (Epoetin Finn 20,000 Units/Ml Vial) 20,000 units IV TODAY@ [facility] Stop: 12/08/24 11:14 Last Admin: 11/08/24 17:47 Dose: 20,000 units Finasteride (Finasteride 5 Mg Tab) 5 mg PO QAM [facility] Stop: 12/08/24 08:59 Last Admin: 11/08/24 08:21 Dose: 5 mg Fluticasone/Vilanterol (Fluticasone/Vilanterol 200/25mcg 14 Puffs/Inhaler) 1 puffs INH DAILY [facility] Stop: 12/08/24 08:59 Last Admin: 11/08/24 08:22 Dose: 1 puffs Furosemide (Furosemide 40 Mg/4 Ml Vial) 100 mg IV Q8H [facility] Stop: 12/07/24 10:29 Last Admin: 11/09/24 03:02 Dose: 100 mg Guaifenesin (Guaifenesin 600 Mg Tabcr) 600 mg PO Q12 [facility] Stop: 12/09/24 08:59 Heparin Sodium (Porcine) (Heparin Sod 5,000 Unit/0.5 Ml Vial) 5,000 units SQ Q12 [facility] Stop: 12/07/24 20:59 Last Admin: 11/08/24 21:30 Dose: Not Given Hydralazine HCl (Hydralazine 10 Mg Tab) 20 mg PO TID [facility] Stop: 12/08/24 08:59 Last Admin: 11/08/24 21:04 Dose: 20 mg Sodium Chloride (Nss) 1,000 mls @ 0 mls/hr IV .Q0M PRN PRN Reason: For Hemodialysis Use ONLY Stop: 11/14/24 06:59 Ampicillin Sodium/Sulbactam Sodium (Unasyn) 3,000 mg in 100 mls @ 200 mls/hr IV Q24H [facility] Stop: 11/13/24 17:59 Last Infusion: 11/08/24 21:19 Dose: Infused Isosorbide Dinitrate (Isosorbide Dinitrate 5 Mg Tab) 5 mg PO DAILY@0700,1200,1700 [facility] Stop: 12/07/24 11:59 Last Admin: 11/08/24 18:21 Dose: 5 mg Mirtazapine (Mirtazapine Tab 15 Mg Tab) 30 mg PO HS [facility] Stop: 12/07/24 20:59 Last Admin: 11/08/24 21:03 Dose: 30 mg Ondansetron HCl (Ondansetron Inj 2 Mg/Ml 2 Ml Vial) 4 mg IV Q6H PRN PRN Reason: Nausea And Vomiting Stop: 12/07/24 10:30 Last Admin: 11/07/24 11:13 Dose: 4 mg Pantoprazole Sodium (Pantoprazole 40 Mg Tab) 40 mg PO QAM [facility] Stop: 12/08/24 08:59 Last Admin: 11/08/24 08:23 Dose: 40 mg Rosuvastatin Calcium (Rosuvastatin Calcium 20 Mg Tab) 20 mg PO QPM [facility] Stop: 12/07/24 20:59 Last Admin: 11/08/24 21:04 Dose: 20 mg Tamsulosin HCl (Tamsulosin Hcl 0.4 Mg Cap) [facility] Stop: 12/08/24 08:59 Last Admin: 11/08/24 08:23 Dose: 0.4 mg
[2024-11-09 06:28] LABS: Basophils # (auto) 0.03 K/uL (0.00-0.20); Basophils % (auto) 0.7 %; Eosinophils # (auto) 0.25 K/uL (0.00-0.50); Hematocrit (blood only) 25.5 % (42.0-52.0); Hemoglobin 8.7 g/dl (14.0-18.0); Immature Granulocytes # (auto) 0.03 K/uL (0.01-0.20); Immature Granulocytes % (auto) 0.7 %; Lymphocytes # (auto) 0.65 K/uL (1.20-3.40); Lymphocytes % (auto) 15.5 %; Mean Corpuscular Hgb Conc 34.1 g/dL (32.0-36.0); Mean Corpuscular Volume 96.6 fL (80.0-100.0); Mean Platelet Volume 9.2 fL (9.4-12.4); Monocytes # (auto) 0.69 K/uL (0.11-0.59); Monocytes % (auto) 16.4 %; Neutrophils # (auto) 2.55 K/uL (1.40-6.50); Neutrophils % (auto) 60.7 %; Platelet Count 171 K/uL (130-400); RDW Coefficient of Variation 14.5 % (11.5-14.5); RDW Standard Deviation 50.7 fL (36.4-46.3); Red Blood Count 2.64 M/uL (4.70-6.10)
[2024-11-09 06:40] LABS: Albumin Globulin Ratio 1.7 (0.9-2); Albumin Level 3.3 gm/dl (3.4-5.0); BUN Creatinine Ratio 4.1 (10-20); Bilirubin,Total 0.4 mg/dl (0.2-1.0); Calcium 8.3 mg/dl (8.6-10.3); Creatinine Clr Calc Pharmacy 15.3 ml/min; Magnesium 1.9 mg/dl (1.7-2.4); Phosphorus 2.8 mg/dl (2.5-4.9); Potassium 3.6 mmol/L (3.5-5.1); Total Protein 5.3 gm/dl (6.0-8.3)
[2024-11-09 06:54] LABS: Troponin I High Sensitivity 84.9 pg/ml (0-20)
[2024-11-09] MEDS: guaiFENesin 600 MG TABCR PO SCH (09:32)
--- NOTE | 2024-11-09 10:49 | Nephrology Progress Note ---
Date of Service November 09, 2024 Assessment & Plan Admission and Anticipated Discharge Date Admission Date: November 07, 2024 Subjective Assessment & Plan (1) ESRD (end stage renal disease) on dialysis: ESRD on MWF schedule. Has Hypoxia and needing o2 but CXR does not show sig issues with actual CHF/Severe fluid overload. maybe Combined Pneumonia and CHF Prognosis is quite poor. Will plan dialysis for tomorrow at this point. 3.5 hrs and take 2.5 kilo off on 3 k bath he does feel tired. on o2 but he feels fine and no resp distress currently. (2) Respiratory failure: Resp failure with hypoxia--Pneumonia and CHF mixed. Has advanced heart and Lung issues at baseline. CXR does not show severe Issues with CHF. DO need to eval for viral Infections and pneumonia etc. Prognosis is quite poor. Did make some extra urine with lasix iv. but will stop iv lasix now. use torsemide 100 daily to help with some extra diuresis now. 3 HTN:---He is already on dialysis so he can have VIKTORIYA/ARB also if felt needed by cardiology. BP betetr this morning. S----had Dialysis yesterday and 2.5 kilo removed. very hard of hearing. Bp is better now and still needing 5 liters o2. also went into Afibb Physical Exam Physical Exam: General: Alert, oriented. No acute distress. on 5 liters o2. very hard of hearing HEENT: NC/AT CV: RRR Resp: Breath sounds Diminished and coarse bilaterally, no increased effort of breathing Abdomen: BS+. Soft, nontender, nondistended. No guarding. No organomegaly appreciated. Extremities: No edema now. Results & Data Vital Signs (Past 12 Hours) Vital Signs Temp Pulse Pulse Resp BP Pulse Ox O2 Del Method 11/09/24 10:08 Nasal Cannula 11/09/24 09:00 95 Nasal Cannula 11/09/24 08:02 37.0 C 111 H 20 125/78 93 Nasal Cannula 11/09/24 07:00 55 L 11/09/24 05:35 155/65 H 11/09/24 03:16 36.3 C L 64 19 181/70 H 91 Nasal Cannula 11/08/24 23:31 Nasal Cannula 11/08/24 22:58 36.5 C 57 L 16 168/73 H 94 Nasal Cannula O2 Flow Rate 11/09/24 10:08 4 11/09/24 09:00 5 11/09/24 08:02 5 11/09/24 07:00 11/09/24 05:35 11/09/24 03:16 5 11/08/24 23:31 5 11/08/24 22:58 5
--- NOTE | 2024-11-09 10:52 | Electrocardiogram Report ---
Test Reason : Blood Pressure : */* mmHG Vent. Rate : 107 BPM Atrial Rate : * BPM P-R Int : * ms QRS Dur : 92 ms QT Int : 320 ms P-R-T Axes : * 34 44 degrees QTcB Int : 427 ms Atrial fibrillation with rapid ventricular response Minimal voltage criteria for LVH, may be normal variant Nonspecific ST abnormality Abnormal ECG When compared with ECG of 07-Nov-2024 05:54, Atrial fibrillation has replaced Sinus rhythm Vent. rate has increased by 49 bpm Confirmed by Bernardo Kraft ([id number]) on 11/09/2024 10:52:08 AM Referred By: REFERRED SELF Confirmed By: Bernardo Kraft
[2024-11-09] MEDS: TORSEMIDE 100 MG TAB PO SCH (12:01)
--- NOTE | 2024-11-09 12:08 | Cardiology Progress Note ---
Date of Service November 09, 2024 Assessment & Plan (1) Paroxysmal atrial fibrillation: (2) Acute respiratory failure with hypoxia: (3) Elevated troponin I level: (4) Labile hypertension: (5) Chronic heart failure with preserved ejection fraction: Plan 89-year-old patient admitted with hypoxia. X-ray with possible right lower lobe infiltrate. Mild volume overload on exam with bilateral pedal edema. Paroxysmal atrial fibrillation with rapid ventricular response earlier this a.m. Patient subsequently spontaneously converted to sinus rhythm. Sinus bradycardia noted at rest. Recommend cautious addition of amiodarone 200 mg twice daily. Reduce carvedilol to 12.5 mg twice daily to avoid significant/symptomatic bradycardia. Continue telemetry monitoring. Patient is not a strong candidate for long-term anticoagulation due to fall risk, chronic anemia, and frailty. Recent fall noted per discussion with patient's son. Continue dual antiplatelet therapy as previously ordered. Mildly elevated high-sensitivity troponin secondary to hypoxia, type II event, demand ischemia rather than plaque rupture ACS. Echocardiogram demonstrates preserved LV systolic function and normal wall motion. Continue aspirin, clopidogrel, and statin therapy as ordered. Diuretic therapy ordered by nephrology. 2.5 L fluid removal on hemodialysis yesterday. Hemodialysis treatment scheduled today 11/09/24. Continue isosorbide dinitrate, and amlodipine as ordered. Prasanna Ruiz DO, [facility] Admission and Anticipated Discharge Date Admission Date: November 07, 2024 Subjective 89-year-old male seen and examined at the bedside. Paroxysmal atrial fibrillation noted this a.m. with heart rates up to 130 bpm. Patient currently denies any chest pain or shortness of breath. Heart rate down to approximately 100 bpm. He has yet to receive a.m. carvedilol. Remains on 5 L supplemental oxygen. Scheduled for repeat hemodialysis treatment today. 2.5 L of fluid removed on dialysis yesterday. Review of Systems Review of Systems: All systems reviewed & are unremarkable except as noted in Subjective Physical Exam Constitutional: well nourished; no acute distress Respiratory: no respiratory distress, no labored breathing and no retractions Auscultation: + crackles (Right base); no rhonchi and no wheezes Cardiovascular: Rate/Rhythm: regular rate, regular rhythm and + bradycardic Heart Sounds: normal S1, normal S2 and + murmur (2/6Systolic ejection murmur h eard best at the right second intercostal spac) Vessels: radial pulses present; no JVD Extremities: + edema (trace to mild B/L pedal edema) Gastrointestinal (Abdomen): Inspection/Auscultation: abdomen normal to inspection; abdomen not distended Percussion/Palpation: abdomen soft; abdomen nontender, no guarding and abdomen not rigid Neurologic: CN's II-XI intact bilaterally and moves all extremities; no focal motor deficits Results & Data Vital Signs (Past 12 Hours) Vital Signs Temp Pulse Pulse Resp BP Pulse Ox O2 Del Method 11/09/24 10:08 Nasal Cannula 11/09/24 09:00 95 Nasal Cannula 11/09/24 08:02 37.0 C 111 H 20 125/78 93 Nasal Cannula 11/09/24 07:00 55 L 11/09/24 05:35 155/65 H 11/09/24 03:16 36.3 C L 64 19 181/70 H 91 Nasal Cannula O2 Flow Rate 11/09/24 10:08 4 11/09/24 09:00 5 11/09/24 08:02 5 11/09/24 07:00 11/09/24 05:35 11/09/24 03:16 5 Laboratory Results Cardiac Enzymes 11/08/24 11/09/24 Range/Units 19:55 05:46 AST 7 L (13-39) U/L Troponin I High Sens 88.2 H* D 84.9 H* (0-20) pg/ml CBC 11/09/24 Range/Units 05:46 WBC 4.20 L (4.8-10.8) K/ul RBC 2.64 L (4.70-6.10) M/uL Hgb 8.7 L (14.0-18.0) g/dl Hct 25.5 L (42.0-52.0) % Plt Count 171 (130-400) K/uL Neut # (Auto) 2.55 (1.40-6.50) K/uL Lymph # (Auto) 0.65 L (1.20-3.40) K/uL [place] # (Auto) 0.69 H (0.11-0.59) K/uL Eos # (Auto) 0.25 (0.00-0.50) K/uL Baso # (Auto) 0.03 (0.00-0.20) K/uL Comprehensive Metabolic Panel 11/09/24 Range/Units 05:46 Sodium 141 (136-145) mmol/L Potassium 3.6 (3.5-5.1) mmol/L Chloride 102 (98-107) mmol/L Carbon Dioxide 32 (21-32) mmol/L BUN 12 (6-23) mg/dl Creatinine 2.92 H D (0.6-1.4) mg/dl Glucose 76 (70-99(Fasting)) mg/dl Calcium 8.3 L (8.6-10.3) mg/dl AST 7 L (13-39) U/L ALT 4 L (7-52) U/L Alkaline Phosphatase 43 (34-104) U/L Total Protein 5.3 L (6.0-8.3) gm/dl Albumin 3.3 L (3.4-5.0) gm/dl Intake and Output 11/08/24 11/09/24 11/09/24 22:59 06:59 14:59 Intake Total 100.000 / 100.000 Output Total Balance 99.000 / 97.000 -1 / 97.000 Intake: IV 100.000 / 100.000 Ampicillin/Sulbactam Sod 3,000 100.000 / 100.000 mg In 100 ml @ 200 mls/hr IV Q24H [facility] Rx#:[id number] Output: # Bowel Movements Other: Hemodialysis Ultrafiltration 2,500 Amount # Unmeasured Voids 1 1
[2024-11-09] MEDS: AMIODARONE 200 MG TAB PO ONE (13:22)
[2024-11-09] MEDS: ACETAMINOPHEN 325 MG TAB PO PRN (13:27)
[2024-11-09] MEDS: carvediloL 12.5 MG TAB PO SCH (17:12)
[2024-11-09] MEDS: AMIODARONE 200 MG TAB PO SCH (17:12)
[2024-11-09] MEDS: DICLOFENAC SOD 1% GEL 100 GM TUBE EXT PRN (22:42)
[2024-11-10 06:22] LABS: Basophils # (auto) 0.04 K/uL (0.00-0.20); Basophils % (auto) 0.8 %; Eosinophils # (auto) 0.27 K/uL (0.00-0.50); Eosinophils % (auto) 5.7 %; Hematocrit (blood only) 25.2 % (42.0-52.0); Hemoglobin 8.7 g/dl (14.0-18.0); Immature Granulocytes # (auto) 0.06 K/uL (0.01-0.20); Immature Granulocytes % (auto) 1.3 %; Lymphocytes # (auto) 0.85 K/uL (1.20-3.40); Mean Corpuscular Hemoglobin 33.3 pg (25.0-34.0); Mean Corpuscular Hgb Conc 34.5 g/dL (32.0-36.0); Mean Corpuscular Volume 96.6 fL (80.0-100.0); Mean Platelet Volume 9.3 fL (9.4-12.4); Monocytes # (auto) 0.75 K/uL (0.11-0.59); Monocytes % (auto) 15.9 %; Neutrophils # (auto) 2.74 K/uL (1.40-6.50); Neutrophils % (auto) 58.3 %; Platelet Count 158 K/uL (130-400); RDW Coefficient of Variation 14.6 % (11.5-14.5); RDW Standard Deviation 51.3 fL (36.4-46.3); Red Blood Count 2.61 M/uL (4.70-6.10); White Blood Count 4.71 K/ul (4.8-10.8)
[2024-11-10 06:43] LABS: Albumin Globulin Ratio 1.6 (0.9-2); Albumin Level 3.2 gm/dl (3.4-5.0); BUN Creatinine Ratio 4.6 (10-20); Bilirubin,Total 0.3 mg/dl (0.2-1.0); Calcium 8.3 mg/dl (8.6-10.3); Creatinine Clr Calc Pharmacy 10.2 ml/min; Magnesium 1.9 mg/dl (1.7-2.4); Phosphorus 3.4 mg/dl (2.5-4.9); Potassium 3.6 mmol/L (3.5-5.1); Total Protein 5.2 gm/dl (6.0-8.3)
--- NOTE | 2024-11-10 10:21 | Dialysis Progress Note ---
Date of Service November 10, 2024 Assessment & Plan Admission and Anticipated Discharge Date Admission Date: November 07, 2024 Subjective Assessment & Plan (1) ESRD (end stage renal disease) on dialysis: ESRD on MWF schedule. Has Hypoxia and needing o2 but CXR does not show sig issues with actual CHF/Severe fluid overload. maybe Combined Pneumonia and CHF Prognosis is quite poor. for today dialysis 3.5 hrs and take 2.5--3 kilo off on 3 k bath. EPO 10K he does feel tired. on o2 but he feels fine and no resp distress currently. (2) Respiratory failure: Resp failure with hypoxia--Pneumonia and CHF mixed. Has advanced heart and Lung issues at baseline. CXR does not show severe Issues with CHF. DO need to eval for viral Infections and pneumonia etc. Prognosis is quite poor. Continue torsemide 100 daily to help with some extra diuresis now. 3 HTN:---He is already on dialysis so he can have VIKTORIYA/ARB also if felt needed by cardiology. BP betetr this morning. S----Seen during Dialysis. So far tolerating it well. AVF and BP fine. still needing 3 liters o2. Physical Exam Physical Exam: General: Alert, oriented. No acute distress. on 5 liters o2. very hard of hearing HEENT: NC/AT CV: RRR Resp: Breath sounds Diminished and coarse bilaterally, no increased effort of breathing Abdomen: BS+. Soft, nontender, nondistended. No guarding. No organomegaly appreciated. Extremities: No edema now. Results & Data Vital Signs (Past 12 Hours) Vital Signs Temp Pulse Pulse Resp BP Pulse Ox O2 Del Method 11/10/24 08:09 36.4 C L 54 L 17 166/73 H 94 Nasal Cannula 11/10/24 08:00 55 L 11/10/24 08:00 Nasal Cannula 11/10/24 03:17 36.8 C 49 L 16 148/60 H 94 Nasal Cannula 11/10/24 00:45 Nasal Cannula 11/10/24 00:29 55 L 11/09/24 23:15 37.1 C 50 L 16 149/61 H 96 Nasal Cannula O2 Flow Rate 11/10/24 08:09 3.0 11/10/24 08:00 11/10/24 08:00 3 11/10/24 03:17 11/10/24 00:45 3 11/10/24 00:29 11/09/24 23:15 3
[2024-11-10] MEDS ORDERED: EPOETIN ALFA 10,000 UNITS/ML VIAL IV SCH (11:00)
--- NOTE | 2024-11-10 12:29 | Cardiology Progress Note ---
Date of Service November 10, 2024 Assessment & Plan (1) Paroxysmal atrial fibrillation: (2) Acute respiratory failure with hypoxia: (3) Elevated troponin I level: (4) Labile hypertension: (5) Chronic heart failure with preserved ejection fraction: Plan 89-year-old patient admitted with hypoxia. X-ray with possible right lower lobe infiltrate. Mild volume overload on exam with bilateral pedal edema. Paroxysmal atrial fibrillation with rapid ventricular response 11/09/2024. Spontaneously converted to sinus rhythm yesterday at approximately 1130 AM. Sinus bradycardia noted at rest. Mildly elevated high-sensitivity troponin secondary to hypoxia and rapid atrial fibrillation. Echocardiogram demonstrating preserved LV systolic function and normal wall motion. Recommendations: * Continue amiodarone 200 mg twice daily for 7 days then reduce dose to 200 mg once daily. * Carvedilol reduced to 12.5 mg twice daily to avoid significant/symptomatic bradycardia. * Continue telemetry monitoring. * Patient is not a strong candidate for long-term anticoagulation due to fall risk, chronic anemia, and frailty. * Continue dual antiplatelet therapy as previously ordered. * Hemodialysis today for fluid removal/optimization of respiratory status * Continue isosorbide dinitrate and amlodipine as ordered. Prasanna Ruiz DO, [facility] Admission and Anticipated Discharge Date Admission Date: November 07, 2024 Subjective 89-year-old male seen and examined on hemodialysis. Remains in sinus rhythm/sinus bradycardia overnight. Denies chest pain or palpitations. Hearing impaired. Offers no new concerns/complaints. Review of Systems Review of Systems: All systems reviewed & are unremarkable except as noted in Subjective Physical Exam Constitutional: well nourished; no acute distress Respiratory: no respiratory distress, no labored breathing and no retractions Auscultation: + crackles (Right base); no rhonchi and no wheezes Cardiovascular: Rate/Rhythm: regular rate, regular rhythm and + bradycardic Heart Sounds: normal S1, normal S2 and + murmur (2/6Systolic ejection murmur heard best at the right second intercostal spac) Vessels: radial pulses present; no JVD Extremities: + edema (trace to mild B/L pedal edema) Gastrointestinal (Abdomen): Inspection/Auscultation: abdomen normal to inspection; abdomen not distended Percussion/Palpation: abdomen soft; abdomen nontender, no guarding and abdomen not rigid Neurologic: CN's II-XI intact bilaterally and moves all extremities; no focal motor deficits Results & Data Vital Signs (Past 12 Hours) Vital Signs Temp Pulse Pulse Resp BP BP Pulse Ox 11/10/24 12:00 50 L 148/70 H 11/10/24 11:30 50 L 138/69 11/10/24 11:00 50 L 155/66 H 11/10/24 10:30 52 L 152/70 H 11/10/24 10:00 51 L 155/75 H 11/10/24 09:31 51 L 168/72 H 11/10/24 09:25 36.5 C 58 L 11/10/24 08:09 36.4 C L 54 L 17 166/73 H 94 11/10/24 08:00 55 L 11/10/24 08:00 11/10/24 03:17 36.8 C 49 L 16 148/60 H 94 11/10/24 00:45 11/10/24 00:29 55 L O2 Del Method O2 Flow Rate 11/10/24 12:00 11/10/24 11:30 11/10/24 11:00 11/10/24 10:30 11/10/24 10:00 11/10/24 09:31 11/10/24 09:25 11/10/24 08:09 Nasal Cannula 3.0 11/10/24 08:00 11/10/24 08:00 Nasal Cannula 3 11/10/24 03:17 Nasal Cannula 11/10/24 00:45 Nasal Cannula 3 11/10/24 00:29 Laboratory Results Cardiac Enzymes 11/10/24 Range/Units 05:47 AST 7 L (13-39) U/L CBC 11/10/24 Range/Units 05:47 WBC 4.71 L (4.8-10.8) K/ul RBC 2.61 L (4.70-6.10) M/uL Hgb 8.7 L (14.0-18.0) g/dl Hct 25.2 L (42.0-52.0) % Plt Count 158 (130-400) K/uL Neut # (Auto) 2.74 (1.40-6.50) K/uL Lymph # (Auto) 0.85 L (1.20-3.40) K/uL [place] # (Auto) 0.75 H (0.11-0.59) K/uL Eos # (Auto) 0.27 (0.00-0.50) K/uL Baso # (Auto) 0.04 (0.00-0.20) K/uL Comprehensive Metabolic Panel 11/10/24 Range/Units 05:47 Sodium 140 (136-145) mmol/L Potassium 3.6 (3.5-5.1) mmol/L Chloride 102 (98-107) mmol/L Carbon Dioxide 31 (21-32) mmol/L BUN 20 (6-23) mg/dl Creatinine 4.39 H D (0.6-1.4) mg/dl Glucose 88 (70-99(Fasting)) mg/dl Calcium 8.3 L (8.6-10.3) mg/dl AST 7 L (13-39) U/L ALT 3 L (7-52) U/L Alkaline Phosphatase 39 (34-104) U/L Total Protein 5.2 L (6.0-8.3) gm/dl Albumin 3.2 L (3.4-5.0) gm/dl Intake and Output 11/09/24 11/10/24 11/10/24 22:59 06:59 14:59 Intake Total 100 / 460 Balance 100 / 460 Intake: IV 100 / 100 Ampicillin/Sulbactam Sod 3,000 100 / 100 mg In 100 ml @ 200 mls/hr IV Q24H [facility] Rx#:[id number] Other: # Unmeasured Voids 1 1 Weight 61.7 kg Weight Measurement Method Built in [facility] Patient Weight 11/11/24 06:59 Weight 61.7 kg
--- NOTE | 2024-11-10 13:20 | Electrocardiogram Report ---
Test Reason : Blood Pressure : */* mmHG Vent. Rate : 56 BPM Atrial Rate : 56 BPM P-R Int : 198 ms QRS Dur : 110 ms QT Int : 462 ms P-R-T Axes : 77 47 9 degrees QTcB Int : 445 ms Sinus bradycardia Moderate voltage criteria for LVH, may be normal variant Anterior infarct , age undetermined Abnormal ECG When compared with ECG of 09-Nov-2024 06:51, Sinus rhythm has replaced Atrial fibrillation Vent. rate has decreased by [address] elevation has replaced ST depression in Anterior leads Confirmed by Bernardo Kraft ([id number]) on 11/10/2024 1:20:04 PM Referred By: REFERRED SELF Confirmed By: Bernardo Kraft
--- NOTE | 2024-11-10 18:16 | Hospitalist Progress Note ---
Date of Service November 10, 2024 Assessment & Plan (1) Elevated troponin: (2) Hypoxia: Plan Pt is an 89yo M with a complex PMHx significant for CAD (s/p multiple stents and CABG), PAD s/p bilateral common iliac stents, TIA, bilateral carotid stenosis, ESRD on HD MWF, atrial fibrillation diagnosed in Jul 2024, systolic and diastolic CHF, COPD, GERD presenting from alf facility with concern for acute respiratory failure. Acute hypoxic respiratory Failure Acute on Chronic Congestive Heart Failure Pneumonia Pt with reported hypoxia to the 50s and 60s at home VBG noting pH 7.46, pCO2 51, HCO3 36 Chest XRAY with Hazy opacities in right lower zone with mild blunting of right costophrenic angle suggestive of mild right pleural effusion. (Stable) BNP [address] chest Procalcitonin 0.12 Received a dose of IV Lasix in the ED, monitor output Cardiology consulted, appreciate further recs - 89-year-old patient admitted with hypoxia. X-ray with possible right lower lobe infiltrate. Mild volume overload on exam with bilateral pedal edema. Recommend further evaluation of possible aspiration and underlying pneumonia. Consider speech/swallow eval. Developed Afib with rapid ventricular response on 424 AM Patient subsequently spontaneously converted to sinus rhythm. Sinus bradycardia noted at rest. Recommend amiodarone 200 mg twice daily for 7 days then reduce to 200 mg daily. Reduce carvedilol to 12.5 mg twice daily to avoid significant/symptomatic bradycardia. Patient is not a strong candidate for long-term anticoagulation due to fall risk, chronic anemia, and frailty. Recent fall noted per discussion with patient's son. Continue dual antiplatelet therapy as previously ordered. Mildly elevated high-sensitivity troponin secondary to hypoxia, type II event, demand ischemia rather than plaque rupture ACS. Echocardiogram demonstrates preserved LV systolic function and normal wall motion. Continue aspirin, clopidogrel, and statin therapy as ordered. Diuretic therapy ordered by nephrology. Hemodialysis. Torsemide. Blood pressure remains elevated. Titrate hydralazine 20 mg 3 times daily. Continue carvedilol, isosorbide dinitrate, and amlodipine as ordered. Oxygen supplementation as needed Daily weights, Is and Os Speech consult Empiric Unasyn Continue to monitor ESRD on HD MWF getting dialysis Nephrology consulted with volume overload, appreciate recs - on HD + diuretics (torsemide 100 daily) Continue Velphoro TIDM Hypokalemia Replete and monitor obstructive CAD s/p CABG 1996, CHARMAINE 2019 Chest pain Elevated troponin, likely multifactorial History of complex CAD history including multiple stents and CABG Intermittent pain for the past few days per son Son states has been getting multiple doses of nitro at the residence Troponin elevated, likely demand in the setting of above Continue aspirin, statin, carvedilol, isosorbide/hydralazine Cardiology consulted, appreciate recs, as above PAD s/p bilateral common iliac stents Continue with aspirin and plavix Anemia of chronic disease Has been receiving IV iron infusions as outpatient Per recent cards communication, recommend hgb >10 given CAD Monitor H& H Continue other home meds DVT Ppx: SC heparin Code status: DNR/DNI Dispo: PCU Admission and Anticipated Discharge Date Admission Date: November 07, 2024 Subjective Pt seen in follow up of hypoxia, pna, on HD concern for aspiration currently down to 3L cardiology, nephrology following Lying in NAD, awake, alert, repots feeling comfortable denies chest pain, abd. pain Cardiology following -pt had episode of afib yesterday - amiodarone + carvedilol, pt is a poor candidate for anticoagulation Nephro following for HD, also currently on torsemide After HD pt had 2 step done - requires 2L of suppl. O2 w/ ambulation Review of Systems Review of Systems: All systems reviewed & are unremarkable except as noted in Subjective Physical Exam Physical Exam: General: Alert, oriented. No acute distress HEENT: NC/AT CV: RRR Resp: decreased breath sounds, no increased effort of breathing Abdomen: BS+. Soft, nontender, nondistended. Extremities: No edema in lower extremities bilaterally. Neuro: awake, alert, answers appropriately, KASHIA, moves extremities Skin: warm, dry Results & Data Results & Data Vital Signs (Past 12 Hours) Vital Signs Temp Pulse Pulse Pulse Pulse Pulse Resp 11/10/24 16:00 11/10/24 15:41 36.7 C 53 L 17 11/10/24 14:00 63 62 55 L 11/10/24 13:05 36.5 C 55 L 11/10/24 13:00 49 L 11/10/24 12:30 50 L 11/10/24 12:00 50 L 11/10/24 11:30 50 L 11/10/24 11:00 50 L 11/10/24 10:30 52 L 11/10/24 10:00 51 L 11/10/24 09:31 51 L 11/10/24 09:25 36.5 C 58 L 11/10/24 08:09 36.4 C L 54 L 17 11/10/24 08:00 55 L 11/10/24 08:00 Resp Resp Resp BP BP Pulse Ox Pulse Ox 11/10/24 16:00 11/10/24 15:41 148/64 H 93 11/10/24 14:00 21 18 18 91 11/10/24 13:05 158/80 H 11/10/24 13:00 139/59 L 11/10/24 12:30 141/72 H 11/10/24 12:00 148/70 H 11/10/24 11:30 138/69 11/10/24 11:00 155/66 H 11/10/24 10:30 152/70 H 11/10/24 10:00 155/75 H 11/10/24 09:31 168/72 H 11/10/24 09:25 11/10/24 08:09 166/73 H 94 11/10/24 08:00 11/10/24 08:00 Pulse Ox Pulse Ox Pulse Ox O2 Del Method O2 Del Method O2 Flow Rate O2 Flow Rate 11/10/24 16:00 95 Nasal Cannula 11/10/24 15:41 Nasal Cannula 2.0 11/10/24 14:00 87 L 89 L 2 11/10/24 13:05 11/10/24 13:00 11/10/24 12:30 11/10/24 12:00 11/10/24 11:30 11/10/24 11:00 11/10/24 10:30 11/10/24 10:00 11/10/24 09:31 11/10/24 09:25 11/10/24 08:09 Nasal Cannula 3.0 11/10/24 08:00 11/10/24 08:00 Nasal Cannula 3 O2 Flow Rate 11/10/24 16:00 3 11/10/24 15:41 11/10/24 14:00 11/10/24 13:05 11/10/24 13:00 11/10/24 12:30 11/10/24 12:00 11/10/24 11:30 11/10/24 11:00 11/10/24 10:30 11/10/24 10:00 11/10/24 09:31 11/10/24 09:25 11/10/24 08:09 11/10/24 08:00 11/10/24 08:00 Laboratory Results 11/10/24 Range/Units 05:47 WBC 4.71 L (4.8-10.8) K/ul RBC 2.61 L (4.70-6.10) M/uL Hgb 8.7 L (14.0-18.0) g/dl Hct 25.2 L (42.0-52.0) % MCV 96.6 (80.0-100.0) fL MCH 33.3 (25.0-34.0) pg MCHC 34.5 (32.0-36.0) g/dL RDW Std Deviation 51.3 H (36.4-46.3) fL RDW Coeff of Jessica 14.6 H (11.5-14.5) % Plt Count 158 (130-400) K/uL MPV 9.3 L (9.4-12.4) fL Immature Gran % (Auto) 1.3 % Neut % (Auto) 58.3 % Lymph % (Auto) 18.0 % [place] % (Auto) 15.9 % Eos % (Auto) 5.7 % Baso % (Auto) 0.8 % Neut # (Auto) 2.74 (1.40-6.50) K/uL Lymph # (Auto) 0.85 L (1.20-3.40) K/uL [place] # (Auto) 0.75 H (0.11-0.59) K/uL Eos # (Auto) 0.27 (0.00-0.50) K/uL Baso # (Auto) 0.04 (0.00-0.20) K/uL Immature Gran # (Auto) 0.06 (0.01-0.20) K/uL Sodium 140 (136-145) mmol/L Potassium 3.6 (3.5-5.1) mmol/L Chloride 102 (98-107) mmol/L Carbon Dioxide 31 (21-32) mmol/L Anion Gap 7 (3-11) BUN 20 (6-23) mg/dl Creatinine 4.39 H D (0.6-1.4) mg/dl Est Cr Clr Drug Dosing 10.2 ml/min eGFR 12.27 BUN/Creatinine Ratio 4.6 L (10-20) Glucose 88 (70-99(Fasting)) mg/dl Calcium 8.3 L (8.6-10.3) mg/dl Phosphorus 3.4 (2.5-4.9) mg/dl Magnesium 1.9 (1.7-2.4) mg/dl Total Bilirubin 0.3 (0.2-1.0) mg/dl AST 7 L (13-39) U/L ALT 3 L (7-52) U/L Alkaline Phosphatase 39 (34-104) U/L Total Protein 5.2 L (6.0-8.3) gm/dl Albumin 3.2 L (3.4-5.0) gm/dl Globulin 2.0 L (2.5-4.0) gm/dl Albumin/Globulin Ratio 1.6 (0.9-2) Medications Administered Current Inpatient Medications Acetaminophen (Acetaminophen 325 Mg Tab) 325 mg PO QID PRN PRN Reason: Pain Stop: 12/07/24 10:20 Last Admin: 11/09/24 18:50 Dose: 325 mg Albuterol (Albuterol Hfa 8 Gm Inhaler) 1 puffs INH Q6H PRN PRN Reason: sob Stop: 12/07/24 10:31 Amiodarone HCl (Amiodarone 200 Mg Tab) 200 mg PO BIDM [facility] Stop: 12/09/24 16:59 Last Admin: 11/10/24 17:27 Dose: 200 mg Amlodipine Besylate (Amlodipine Besylate 5 Mg Tab) 5 mg PO BID [facility] Stop: 12/07/24 20:59 Last Admin: 11/10/24 09:07 Dose: 5 mg Aspirin (Aspirin 81 Mg Ectab) 81 mg PO BID [facility] Stop: 12/07/24 20:59 Last Admin: 11/10/24 09:07 Dose: 81 mg Carvedilol (Carvedilol 12.5 Mg Tab) 12.5 mg PO BIDM [facility] Stop: 12/09/24 16:59 Last Admin: 11/10/24 17:27 Dose: 12.5 mg Clopidogrel Bisulfate (Clopidogrel Bisulfate 75 Mg Tab) 75 mg PO QAM [facility] Stop: 12/07/24 10:20 Last Admin: 11/10/24 09:07 Dose: 75 mg Diclofenac Sodium (Diclofenac Sod 1% Gel 100 Gm Tube) 2 gm EXT BID PRN; Protocol PRN Reason: Neck pain Stop: 12/09/24 20:59 Last Admin: 11/09/24 22:42 Dose: 2 gm Docusate Sodium (Docusate Sodium 100 Mg Cap) 100 mg PO HS [facility] Stop: 12/07/24 20:59 Last Admin: 11/09/24 20:11 Dose: 100 mg Finasteride (Finasteride 5 Mg Tab) 5 mg PO QAM [facility] Stop: 12/08/24 08:59 Last Admin: 11/10/24 09:11 Dose: 5 mg Fluticasone/Vilanterol (Fluticasone/Vilanterol 200/25mcg 14 Puffs/Inhaler) 1 puffs INH DAILY [facility] Stop: 12/08/24 08:59 Last Admin: 11/10/24 09:06 Dose: 1 puffs Guaifenesin (Guaifenesin 600 Mg Tabcr) 600 mg PO Q12 [facility] Stop: 12/09/24 08:59 Last Admin: 11/10/24 09:07 Dose: 600 mg Heparin Sodium (Porcine) (Heparin Sod 5,000 Unit/0.5 Ml Vial) 5,000 units SQ Q12 [facility] Stop: 12/07/24 20:59 Last Admin: 11/10/24 09:08 Dose: Not Given Hydralazine HCl (Hydralazine 10 Mg Tab) 20 mg PO TID [facility] Stop: 12/08/24 08:59 Last Admin: 11/10/24 13:58 Dose: 20 mg Sodium Chloride (Nss) 1,000 mls @ 0 mls/hr IV .Q0M PRN PRN Reason: For Hemodialysis Use ONLY Stop: 11/14/24 06:59 Ampicillin Sodium/Sulbactam Sodium (Unasyn) 3,000 mg in 100 mls @ 200 mls/hr IV Q24H [facility] Stop: 11/13/24 17:59 Last Infusion: 11/10/24 18:04 Dose: Infused Isosorbide Dinitrate (Isosorbide Dinitrate 5 Mg Tab) 5 mg PO DAILY@0700,1200,1700 [facility] Stop: 12/07/24 11:59 Last Admin: 11/10/24 17:27 Dose: 5 mg Mirtazapine (Mirtazapine Tab 15 Mg Tab) 30 mg PO HS [facility] Stop: 12/07/24 20:59 Last Admin: 11/09/24 20:11 Dose: 30 mg Ondansetron HCl (Ondansetron Inj 2 Mg/Ml 2 Ml Vial) 4 mg IV Q6H PRN PRN Reason: Nausea And Vomiting Stop: 12/07/24 10:30 Last Admin: 11/09/24 22:32 Dose: 4 mg Pantoprazole Sodium (Pantoprazole 40 Mg Tab) 40 mg PO QAM [facility] Stop: 12/08/24 08:59 Last Admin: 11/10/24 09:08 Dose: 40 mg Rosuvastatin Calcium (Rosuvastatin Calcium 20 Mg Tab) 20 mg PO QPM [facility] Stop: 12/07/24 20:59 Last Admin: 11/09/24 20:11 Dose: 20 mg Tamsulosin HCl (Tamsulosin Hcl 0.4 Mg Cap) [facility] [place]: 12/08/24 08:59 Last Admin: 11/10/24 09:08 Dose: 0.4 mg Torsemide (Torsemide 100 Mg Tab) [facility] [place]: 12/09/24 10:59 Last Admin: 11/10/24 09:10 Dose: 100 mg
[2024-11-10] MEDS: EPOETIN ALFA 10,000 UNITS/ML VIAL IV SCH (19:15)
[2024-11-11 03:08] VITALS: RESP 18
[2024-11-11 05:45] LABS: Hematocrit (blood only) 28.6 % (42.0-52.0); Hemoglobin 9.9 g/dl (14.0-18.0); Mean Corpuscular Hemoglobin 33.2 pg (25.0-34.0); Mean Corpuscular Hgb Conc 34.6 g/dL (32.0-36.0); Mean Platelet Volume 9.3 fL (9.4-12.4); Platelet Count 196 K/uL (130-400); RDW Coefficient of Variation 14.6 % (11.5-14.5); RDW Standard Deviation 51.3 fL (36.4-46.3); Red Blood Count 2.98 M/uL (4.70-6.10); White Blood Count 5.45 K/ul (4.8-10.8)
[2024-11-11 06:02] LABS: BUN Creatinine Ratio 3.8 (10-20); Calcium 8.5 mg/dl (8.6-10.3); Creatinine Clr Calc Pharmacy 12.2 ml/min; Magnesium 1.9 mg/dl (1.7-2.4); Phosphorus 2.5 mg/dl (2.5-4.9); Potassium 3.6 mmol/L (3.5-5.1)
[2024-11-11 08:02] VITALS: BP 176/77; TEMP 98.1; O2SAT 91
--- NOTE | 2024-11-11 09:33 | Cardiology Progress Note ---
Date of Service November 11, 2024 Assessment & Plan (1) Paroxysmal atrial fibrillation: (2) Acute respiratory failure with hypoxia: (3) Elevated troponin I level: (4) Labile hypertension: (5) Chronic heart failure with preserved ejection fraction: Plan 89-year-old patient admitted with hypoxia. X-ray with possible right lower lobe infiltrate. Mild volume overload on exam with bilateral pedal edema. Paroxysmal atrial fibrillation with rapid ventricular response 11/09/2024. Spontaneously converted to sinus rhythm yesterday at approximately 1130 AM. Sinus bradycardia noted at rest. Mildly elevated high-sensitivity troponin secondary to hypoxia and rapid atrial fibrillation. Echocardiogram demonstrating preserved LV systolic function and normal wall motion. Recommendations: * Continue amiodarone 200 mg twice daily for 7 days then reduce dose to 200 mg once daily. * Carvedilol reduced to 12.5 mg twice daily to avoid significant/symptomatic bradycardia. * Continue telemetry monitoring. * Patient is not a strong candidate for long-term anticoagulation due to fall risk, chronic anemia, and frailty. * Continue dual antiplatelet therapy as previously ordered. * Hemodialysis today for fluid removal/optimization of respiratory status * Continue isosorbide dinitrate and amlodipine as ordered. Prasanna Ruiz DO, [facility] 11/11/2024: -Patient is stable from a cardiac perspective. No acute concerns. -Euvolemic on exam. -Review of telemetry shows that patient has maintained SR over night with rates in the 60's. -Continue amiodarone 200 mg twice daily for 7 days then reduce dose to 200 mg once daily. -Carvedilol reduced to 12.5 mg twice daily to avoid significant/symptomatic bradycardia. -Patient is not a great candidate for long-term AC therapy due to increased falls risk, frailty and chronic anemia -Continue dual antiplatelet therapy as per current regimen -Continue HD treatments as per nephrology's recommendations -Continue isosorbide dinitrate and Amlodipine. -Upon return to his extended care facility, patient may have sub-lingual Nitroglycerin as follows 1 tablet under the tongue Q5 minutes x3 doses with routine BP monitoring in between. It is important to understand that patient may have multiple doses in a 24 hour period if needed for chest pain. For example. If patient has a chest pain episode at 8am and receives 1 SL NTG with symptom resolution, but develops chest pain several hours later, you may give SL NTG and start the process over. -No further cardiac workup needed during this course of hospitalization. Case has been discussed with Dr. Ruiz. Further recommendations regarding plan of care as per his assessment. I spent a total of 30 minutes on the date of service in preparation, delivery, documentation of the care provided to the patient excluding any time spent in the performance of separately billed services. CAMERON Harding [facility] Card[facility] Admission and Anticipated Discharge Date Admission Date: November 07, 2024 Supervising Physician Co-Signing Physician Notes Patient discharged prior to evaluation by the undersigned. Case discussed with cardiology DORY. I have reviewed the advance practitioner's documentation, and I agree with, and take responsibility for the plan of care. Prasanna Ruiz DO, [facility] Subjective 11/11/2024: Patient seen and examined in follow up today. Feeling well. Offers no acute cardiac concerns and is planning to be discharged today. Labs, vitals, diagnostics, telemetry and documentation reviewed. Telemetry reviewed showing SR rates in the 60's no acute events overnight. Review of Systems Review of Systems: All systems reviewed & are unremarkable except as noted in HPI & below Physical Exam Constitutional: well developed and well nourished; no acute distress and not ill appearing Neck: normal visual inspection and trachea midline Respiratory: normal respiratory effort, lungs clear to auscultation Cardiovascular: Rate/Rhythm: regular rate and regular rhythm Heart Sounds: normal S1 and normal S2 Vessels: dorsalis pedis pulses present; no JVD Extremities: no edema Skin: no rashes, warm and dry Psychiatric: A+Ox3, euthymic affect Results & Data Vital Signs (Past 12 Hours) Vital Signs Temp Pulse Pulse Resp BP Pulse Ox O2 Del Method 11/11/24 08:01 36.7 C 62 18 176/77 H 91 Room Air 11/11/24 03:07 36.6 C 87 18 169/71 H 90 Room Air 11/10/24 23:05 63 11/10/24 22:54 37.5 C 61 19 153/54 H 90 Room Air 11/10/24 22:36 Room Air Laboratory Results CBC 11/11/24 Range/Units 05:08 WBC 5.45 (4.8-10.8) K/ul RBC 2.98 L (4.70-6.10) M/uL Hgb 9.9 L (14.0-18.0) g/dl Hct 28.6 L (42.0-52.0) % Plt Count 196 (130-400) K/uL Comprehensive Metabolic Panel 11/11/24 Range/Units 05:08 Sodium 138 (136-145) mmol/L Potassium 3.6 (3.5-5.1) mmol/L Chloride 102 (98-107) mmol/L Carbon Dioxide 29 (21-32) mmol/L BUN 14 (6-23) mg/dl Creatinine 3.65 H D (0.6-1.4) mg/dl Glucose 96 (70-99(Fasting)) mg/dl Calcium 8.5 L (8.6-10.3) mg/dl Intake and Output 11/10/24 11/11/24 11/11/24 22:59 06:59 14:59 Intake Total 100 / 710 120 / 710 Balance 100 / 710 120 / 710 Intake: IV 100 / 100 Ampicillin/Sulbactam Sod 3,000 100 / 100 mg In 100 ml @ 200 mls/hr IV Q24H [facility] Rx#:[id number] Oral 120 / 610 Other: # Unmeasured Voids 1 1
--- NOTE | 2024-11-11 10:21 | Discharge Summary ---
Date of Service November 11, 2024 Admission HPI Per Admitting Provider Pt is an 89yo M with a complex PMHx significant for CAD (s/p multiple stents and CABG), PAD s/p bilateral common iliac stents, TIA, bilateral carotid stenosis, ESRD on HD MWF, atrial fibrillation diagnosed in Jul 2024, systolic and diastolic CHF, COPD, GERD presenting from residential facility with concern for acute respiratory failure. History obtained from pt's son present at bedside. Pt EYAK He states at abut 3:30AM the staff at the pt's residential noted that he was having trouble breathing. Son states that over the weekend the pt has been nauseous and throwing up without diarrhea. He has also been stating that he has chest pain occasionally. Also had dialysis yesterday. Follows with both Nephrology and cardiology. States that the pt was on hospice for one day when he was unresponsive but he spontaneously aroused and they decided to discontinue hospice. They are unsure what caused his to be unresponsive. Son also states that being on hospice would mean they would have to discontinue dialysis and his father does not want that yet. Son states that upon his arrival to the residential he used a pulse ox and noted the pt's oxygen saturation to be in the 70s. He called EMS who started him on oxygen and brought him to the ED. He states that their goal is to get him stabilized and back to the residential with oxygen if needed. Admission Exam Per Admitting Provider General: Alert, oriented. No acute distress Neuro: EYAK, pt up and ambulating the room, going to the bathroom HEENT: NC/AT CV: RRR Resp: Breath sounds coarse bilaterally, no increased effort of breathing Abdomen: BS+. Soft, nontender, nondistended. No guarding. No organomegaly appreciated. Extremities: No edema in lower extremities bilaterally. Principal Diagnosis Acute hypoxic respiratory Failure Acute on Chronic Congestive Heart Failure Pneumonia Atrial fibrillation w/ RVR Discharge Exam General: Alert, oriented. No acute distress HEENT: NC/AT CV: RRR Resp: decreased breath sounds, no increased effort of breathing Abdomen: BS+. Soft, nontender, nondistended. Extremities: No edema in lower extremities bilaterally. Neuro: awake, alert, answers appropriately, EYAK, moves extremities Skin: warm, dry Discharge Data Allergies Allergy/AdvReac Type Severity Reaction Status Date / Time ciprofloxacin [From Cipro] AdvReac Vomiting Verified 09/19/20 10:27 Iodinated Contrast Media AdvReac Unknown Verified 09/19/20 10:27 Consultations 11/07/24 07:51 ED Decision to Admit Stat 11/07/24 08:43 Consult Cardiology Routine Consult Nephrology Routine Hospital Course (1) Elevated troponin: (2) Hypoxia: Plan Pt is an 89yo M with a complex PMHx significant for CAD (s/p multiple stents and CABG), PAD s/p bilateral common iliac stents, TIA, bilateral carotid stenosis, ESRD on HD MWF, atrial fibrillation diagnosed in Jul 2024, systolic and diastolic CHF, COPD, GERD presenting from residential facility with concern for acute respiratory failure. Acute hypoxic respiratory Failure Acute on Chronic Congestive Heart Failure Pneumonia Pt with reported hypoxia to the 50s and 60s at home VBG noting pH 7.46, pCO2 51, HCO3 36 Chest XRAY with Hazy opacities in right lower zone with mild blunting of right costophrenic angle suggestive of mild right pleural effusion. (Stable) BNP [address] chest Procalcitonin 0.12 Received a dose of IV Lasix in the ED, monitor output Cardiology consulted, appreciate further recs - 89-year-old patient admitted with hypoxia. X-ray with possible right lower lobe infiltrate. Mild volume overload on exam with bilateral pedal edema. Recommend further evaluation of possible aspiration and underlying pneumonia. Consider speech/swallow eval. Developed Afib with rapid ventricular response on 424 AM Patient subsequently spontaneously converted to sinus rhythm. Sinus bradycardia noted at rest. Recommend amiodarone 200 mg twice daily for 7 days then reduce to 200 mg daily. Reduce carvedilol to 12.5 mg twice daily to avoid significant/symptomatic bradycardia. Patient is not a strong candidate for long-term anticoagulation due to fall risk, chronic anemia, and frailty. Recent fall noted per discussion with patient's son. Continue dual antiplatelet therapy as previously ordered. Mildly elevated high-sensitivity troponin secondary to hypoxia, type II event, demand ischemia rather than plaque rupture ACS. Echocardiogram demonstrates preserved LV systolic function and normal wall motion. Continue aspirin, clopidogrel, and statin therapy as ordered. Diuretic therapy ordered by nephrology. Hemodialysis. Torsemide. Blood pressure remains elevated. Titrate hydralazine 20 mg 3 times daily. Continue carvedilol, isosorbide dinitrate, and amlodipine as ordered. Oxygen supplementation as needed Daily weights, Is and Os Speech consult Empiric Unasyn Continue to monitor ESRD on HD MWF getting dialysis Nephrology consulted with volume overload, appreciate recs - on HD + diuretics (torsemide 100 daily) Continue Velphoro TIDM Hypokalemia Replete and monitor obstructive CAD s/p CABG 1996, CHARMAINE 2018 Chest pain Elevated troponin, likely multifactorial History of complex CAD history including multiple stents and CABG Intermittent pain for the past few days per son Son states has been getting multiple doses of nitro at the residence Troponin elevated, likely demand in the setting of above Continue aspirin, statin, carvedilol, isosorbide/hydralazine Cardiology consulted, appreciate recs, as above PAD s/p bilateral common iliac stents Continue with aspirin and plavix Anemia of chronic disease Has been receiving IV iron infusions as outpatient Per recent cards communication, recommend hgb >10 given CAD Monitor H& H Continue other home meds Total Time Total Time Spent Total Time Spent (In Minutes): 40 Discharge Plan Discharge Items Patient Disposition: Personal Shelter Reason For Visit: SOB Discharge Diagnosis: Acute hypoxic respiratory Failure Acute on Chronic Congestive Heart Failure Pneumonia Atrial fibrillation w/ RVR Activity: Per Instructions section Non-emergency contact: Primary Care Provider and Pig Machine Operator Call non-emergency contact if: you have any medication questions and your symptoms worsen Follow-up/Referrals: Sunny Hatfield, [Primary Care Provider] - Diet: Dialysis Renal, Heart Healthy and Low Sodium (2gm) Diet Texture: Easy to Chew Addtl Attending Provider Instructions: Follow up with your primary care doctor and 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 You were started on new medication - Amiodarone 200 mg - take it twice a day for 7 days , then daily. Your carvedilol dose was decreased to 12.5 mg twice a day. Hydralazine dose increased to 20 mg three times a day. Continue aspirin, clopidogrel, statin, amlodipine, isosorbide dinitrate as ordered. Per your manager document control (kidney doctor), take torsemide 100 mg daily. Finish antibiotic treatment as prescribed. Use supplemental oxygen as prescribed. For your nitroglycerin - 1 SL Q 5 min prn up to 3 doses- may repeat as needed. Addtl Digital Advertising Specialist Provider Instructions: Call your Primary Care doctor if any of the following symptoms or problems start or get worse: * Shortness of breath or difficulty breathing * Wake up at night short of breath * Chest pain * Cough * Swelling of your hands, feet, or legs * More fatigued or tired with your normal activity * Palpitations - sudden fast heart beats WEIGHT * Weigh yourself every morning after using the bathroom. * Use the same scale. * Wear the same amount of clothing. * Write your weight down on a chart. * Call your Primary Care doctor if you gain more than 2-3 pounds in 1-2 days. MEDICATIONS * Use this discharge instruction sheet for medication instructions. * Take your medications at the time your doctor ordered. * Do not skip a dose of your medicines. * If you miss a dose of medicine, take it as soon as possible, but DO NOT DOUBLE A DOSE. * Read your medicine information when you get home. * Know all of the side effects of your medicine. If in doubt, ask your pharmacist * Call your Primary Care doctor's office if you have any side effects. * Be sure all of your doctors know what medicine and herbs you take (including cold, flu, and herbal medicine). Take the following with you to your follow-up doctor appointments: * Weight Chart * Medication List * List of questions Do not drink excessive alcohol, beer or wine. Pending Studies at Discharge: No Stand-Alone Forms: My Pro[employer], Smoking Cessation Skilled Items Patient informed of condition?: Yes DNR: Yes Discharge Level of Care: Other Communicable Disease: No Discharge Prognosis: Stable Lines: None Urinary Catheter: No Medications and DC Order Prescriptions: New amiodarone 200 mg Tablet 200 mg PO UD Qty: 30 0RF Rx Instructions: Take twice a day for 7 days, then take once a day carvedilol 12.5 mg Tablet 12.5 mg PO BIDM Qty: 60 0RF hydralazine 10 mg Tablet 20 mg PO TID Qty: 30 0RF torsemide 100 mg Tablet 100 mg PO QAM Qty: 30 0RF guaifenesin [Mucinex] 600 mg Tablet Extended Release 12hr 600 mg PO Q12 Qty: 10 0RF amoxicillin-pot clavulanate 875-125 mg tablet 1 tab PO BID 4 Days Qty: 8 0RF Continued fluticasone propion-salmeterol [Advair Diskus] 250-50 mcg/dose Blister With Device 1 inh INHALATION BID acetaminophen [Tylenol] 325 mg Tablet 325 mg PO QID PRN (Reason: Pain) clopidogrel [Plavix] 75 mg Tablet 75 mg PO QAM amlodipine [Norvasc] 5 mg Tablet 5 mg PO BID aspirin 81 mg Tablet,Delayed Release (Dr/Ec) 81 mg PO BID tamsulosin 0.4 mg Capsule 0.4 mg PO QAM pantoprazole [Protonix] 40 mg Tablet,Delayed Release (Dr/Ec) 40 mg PO QAM nitroglycerin [Nitrostat] 0.4 mg Tablet, Sublingual 0.4 mg sublingual UD PRN (Reason: Chest Pain) albuterol 90 mcg/actuation Aerosol 90 mcg INHALATION Q6H PRN (Reason: sob) finasteride 5 mg Tablet 5 mg PO QAM rosuvastatin [Crestor] 20 mg Tablet 20 mg PO QPM isosorbide dinitrate 5 mg tablet 5 mg PO TID mirtazapine 30 mg tablet 30 mg PO HS Qty: 30 0RF Velphoro 500 mg tablet,chewable 500 mg PO TIDM docusate sodium 100 mg Tablet 100 mg PO HS Discontinued hydralazine 10 mg tablet 10 mg PO TID carvedilol 25 mg tablet 25 mg BID Discharge Orders: Discharge Order- CHF (Routine); Ordered 11/11/24 Ordered By: Anthony No Admission Data Admit Date/Time: 11/07/24 07:51 Attending Provider: Anthony No Admit Provider: Madyson Huber Primary Care Provider: Sunny Hatfield Other Providers: [facility]; Madyson Huber; Prasanna Ruiz Roshan
[2024-11-11 10:57] VITALS: PULSE 63
--- NOTE | 2024-11-14 09:28 | Coding Query ---
CONGESTIVE HEART FAILURE To Promote full compliance with coding requirements relating to patient care, physician participation is requested in all cases of online media buyer uncertainty. Please assist us with the following questions. A diagnosis of Congestive Heart Failure is documented in the patient's medical record. To accurately code this diagnosis and to compare patient severity, we ask that you specify the type of heart failure by placing an X within the parenthesis (x). SYSTOLIC HEART FAILURE ( ) Acute ( ) Chronic ( ) Acute on Chronic ( ) Rheumatic ( ) Unknown DIASTOLIC HEART FAILURE ( x) Acute ( ) Chronic ( ) Acute on Chronic ( ) Rheumatic ( ) Unknown COMBINED SYSTOLIC AND DIASTOLIC HEART FAILURE ( ) Acute ( ) Chronic ( ) Acute on Chronic ( ) Rheumatic ( ) Unknown Was the CHF Present On Admission? Please check the appropriate box: ( x) Present on Admission ( ) Not Present On Admission ( ) Clinically undetermined Thank you JAKOB Sorenson [facility]
== END 2024-11-11 12:11 | disposition home or self-care (01) | DRG 189 ==
LOC: ED 05:40 → SUATTDRO 07:51 → 4W 07:51

== ENCOUNTER 2024-11-21 04:24 | Inpatient (IN) ==
[2024-11-21 05:06] LABS: Basophils # (auto) 0.03 K/uL (0.00-0.20); Basophils % (auto) 0.7 %; Eosinophils # (auto) 0.21 K/uL (0.00-0.50); Eosinophils % (auto) 5.1 %; Hematocrit (blood only) 27.5 % (42.0-52.0); Hemoglobin 9.7 g/dl (14.0-18.0); Immature Granulocytes # (auto) 0.01 K/uL (0.01-0.20); Immature Granulocytes % (auto) 0.2 %; Lymphocytes # (auto) 0.71 K/uL (1.20-3.40); Lymphocytes % (auto) 17.1 %; Mean Corpuscular Hemoglobin 33.9 pg (25.0-34.0); Mean Corpuscular Hgb Conc 35.3 g/dL (32.0-36.0); Mean Corpuscular Volume 96.2 fL (80.0-100.0); Mean Platelet Volume 9.2 fL (9.4-12.4); Monocytes # (auto) 0.63 K/uL (0.11-0.59); Monocytes % (auto) 15.2 %; Neutrophils # (auto) 2.55 K/uL (1.40-6.50); Neutrophils % (auto) 61.7 %; Platelet Count 164 K/uL (130-400); RDW Coefficient of Variation 14.6 % (11.5-14.5); RDW Standard Deviation 51.2 fL (36.4-46.3); Red Blood Count 2.86 M/uL (4.70-6.10); White Blood Count 4.14 K/ul (4.8-10.8)
[2024-11-21 05:19] LABS: Albumin Level 3.5 gm/dl (3.4-5.0); Bilirubin,Total 0.4 mg/dl (0.2-1.0); Calcium 8.8 mg/dl (8.6-10.3); Potassium 3.4 mmol/L (3.5-5.1)
[2024-11-21 05:24] LABS: Albumin Globulin Ratio 1.5 (0.9-2); BUN Creatinine Ratio 4.3 (10-20); Creatinine Clr Calc Pharmacy 15.2 ml/min; Globulin 2.3 gm/dl (2.5-4.0); Total Protein 5.8 gm/dl (6.0-8.3)
[2024-11-21 05:39] LABS: Partial Thromboplastin Time 28 Seconds (21-31); Prothrombin Time 11.2 Seconds (9.0-12.0)
[2024-11-21] MEDS: OXYMETAZOLINE 0.05% 30 ML BTL ONE (05:56)
--- NOTE | 2024-11-21 06:16 | CT Scan Report ---
EXAM: CT head/brain wo con CLINICAL HISTORY: Trauma TECHNIQUE: Multiple axial images are obtained from the skull base to the vertex without contrast. CT scan was performed according to ALARA (as low as reasonable achievable). 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 FINDINGS: Thin strip of hyperdensities noted along the right side of anterior falx with maximum thickness measures about 4 mm- possibility of subdural hemorrhage. Diffuse calcification is noted involving falx and sensorium-stable. There is cerebral atrophy. No evidence of space occupying lesion, edema, mass effect, midline shift, or hydrocephalus is noted. Basal cisterns are symmetric and normal in size and configuration. There are scattered periventricular hypodensities as can be seen with chronic microvascular ischemic changes. The esquivel-white matter differentiation is preserved. Bilateral ethmoid and maxillary sinusitis. Rest of paranasal sinuses and mastoid air cells are well aerated. Possible left nasal bone fracture. Orbital contents are within normal limits. Bony structures are intact. IMPRESSION: 1. Thin strip of hyperdensities noted along the right side of anterior falx with maximum thickness measures about 4 mm- possibility of subdural hemorrhage.--new finding. . 2. Diffuse calcification is noted involving falx and sensorium-stable. 3. Chronic microvascular ischemic changes-stable. 4. Cerebral atrophy.-stable. Electronically signed by Mitch Steiner 11-21-2024 06:16 AM
--- NOTE | 2024-11-21 06:30 | CT Scan Report ---
EXAM: CT facial bones wo con CLINICAL HISTORY: Trauma TECHNIQUE: Computed tomography of the orbits/face was performed without intravenous contrast. Contiguous axial images were obtained. Reformatted coronal and sagittal images were also reviewed. CT scan was performed according to ALARA (as low as reasonable achievable). COMPARISON: none. FINDINGS: Linear fracture of left nasal bone. Right sided nasal septum deviation. Mild to moderate bilateral ethmoid and gross bilateral maxillary sinusitis with intrinsic hyperdensities with likely blockage of bilateral ostiomeatal units. Rest of paranasal sinuses and mastoid air cells are clear. The globes, optic nerves, extraocular muscles and retro-orbital fat are grossly unremarkable. Reformatted imaging demonstrates intact roof and floor of the orbits. Included portions of the mandible are intact. The included intracranial substances and airway are unremarkable. IMPRESSION: 1. Linear fracture of left nasal bone. 2. Right sided nasal septum deviation. 3. Mild to moderate bilateral ethmoid and gross bilateral maxillary sinusitis with intrinsic hyperdensity- possibility of fungal etiology likely. 4. Blockage of bilateral ostiomeatal units. Electronically signed by Mitch Steiner 11-21-2024 06:29 AM
--- NOTE | 2024-11-21 06:41 | XRay Report ---
EXAM: XR chest 1V portable CLINICAL HISTORY: Trauma TECHNIQUE: Radiograph of chest was acquired. COMPARISON: 11/07/2024 FINDINGS: Hazy opacities in right lower zone. Interval increase in blunting of right costophrenic angle- suggestive of mild right pleural effusion. Interval resolution of left lower lung zone hazy opacity. No acute osseous abnormality. Midline sternotomy sutures were seen. CVP line is redemonstrated with its tip in the SVC. IMPRESSION: 2. Hazy opacities in right lower zone (stable) 3. Interval increase in blunting of right costophrenic angle - suggestive of mild right pleural effusion. 4. Near complete resolution of left lower zone hazy opacity. Electronically signed by Mitch Steiner 11-21-2024 06:41 AM
--- NOTE | 2024-11-21 06:42 | CT Scan Report ---
EXAM: CT cervical spine wo con CLINICAL HISTORY: Trauma TECHNIQUE: Computed tomography of the cervical spine performed without intravenous contrast. Contiguous axial images were obtained from the skull base to T2, with sagittal and coronal reformatted images reconstructed from the axial data. CT scan was performed according to ALARA (as low as reasonable achievable). COMPARISON: None. FINDINGS: Loss of cervical lordosis - suggest possibility of muscle spasm/positional. Degenerative changes involving cervical spine in the form of multilevel marginal osteophytes, disc space reduction and facetal arthrosis. Cervical vertebral bodies are normal in height and alignment, with no evidence of fracture or subluxation. Lateral masses of C1 are symmetrical, and the dens is intact. Prevertebral soft tissues are not widened. The remaining suprahyoid and infrahyoid soft tissues in the neck are unremarkable. Posterior uncovertebral arthrosis is noted at C4-C5 and C6-C7 levels, which indenting ventral thecal sac and causes bilateral neuroforaminal narrowing. Thyroid gland appears unremarkable. Bilateral maxillary and ethmoid sinusitis. Possible right sided pleural effusion. IMPRESSION: 1.No acute fracture or subluxation in the cervical spine. 2.Cervical spondylosis. Electronically signed by Mitch Steiner 11-21-2024 06:41 AM
[2024-11-21] MEDS: amLODIPine BESYLATE 5 MG TAB PO ONE (07:48)
[2024-11-21] MEDS ORDERED: NITROGLYCERIN SL 0.4 MG/TAB TAB SL PRN (08:07)
[2024-11-21] MEDS ORDERED: ALBUTEROL HFA 8 GM INHALER INH PRN (08:25)
--- NOTE | 2024-11-21 08:30 | History & Physical Report ---
Date of Service November 21, 2024 Assessment & Plan (1) Subdural hematoma, post-traumatic: (2) Fall from or off toilet with subsequent striking against object, initial encounter: (3) Nasal bone fracture: (4) Nose septum deviation: (5) Paroxysmal atrial fibrillation: (6) Chronic heart failure with preserved ejection fraction: (7) Labile hypertension: (8) ESRD (end stage renal disease) on dialysis: (9) ASCVD (arteriosclerotic cardiovascular disease): (10) Anemia, chronic renal failure: (11) COPD (chronic obstructive pulmonary disease): Plan Patient 89-year-old gentleman who lives at [facility] fell from toilet striking his face on the shower. Subsequent nasal bone fracture and small subdural hematoma. Admit to monitored unit, continue telemetry monitoring Frequent neurochecks Repeat head CT in a.m. Hold antiplatelet therapy Continue other medications for hypertension, atrial fibrillation management Dose antihypertensive medications this morning Continue inhalers for COPD management Consult nephrology for ongoing hemodialysis needs Replace potassium Therapies Case management for disposition planning Discussed Kam directives with patient and reviewed previous records, DNR/DNI Conversation with patient's son, Eulogio. Updated on diagnosis, agrees with plan for conservative management and monitoring. History of Present Illness Chief Complaint: Fell off the toilet, bleeding from face Primary Care Provider: Sunny Hatfield DO Patient is an 89-year-old gentleman who is at [facility]. Presents to the emergency department after he got up in the middle of the night and ambulated to the bathroom without his walker. Patient reports that as he was sitting down on the toilet he fell forward and his face landed into the edge of the shower. Had significant hemorrhage from his face and was brought to the emergency room. In the emergency room imaging revealed nasal bone fracture as well as possible small developing subdural hematoma. Per ED physician report, family requested that the patient be managed here and not be considered for transfer to tertiary care center. He was referred to our service for further evaluation. Time my evaluation the patient denies any real significant amounts of pain. Is having a little bit of oozing from his nose. He denies any syncop e. He fully remembers the incident. He readily admits that he did not use his walker when going into the bathroom this morning. He remembers falling forward off the toilet and hitting his face on the shower. He denies any chest pain. No shortness of breath, no lightheadedness or dizziness, no cough or cold symptoms, no fever or chills, no nausea or vomiting, no new problems with his bowels or bladder. Patient was just recently in the hospital for Decompensated heart failure. During that time he also had developed atrial fibrillation with rapid ventricular response. He was started on amiodarone and his other medications were adjusted. At that time it was determined that the risks of bleeding associated with falls outweighed benefits of anticoagulation and he was not started on anticoagulation. He was continued on his dual antiplatelet therapy of aspirin and Plavix. He is compliant with his hemodialysis and had his hemodialysis session yesterday. He is a Wednesday dialysis patient. Allergies Allergy/AdvReac Type Severity Reaction Status Date / Time ciprofloxacin [From Cipro] AdvReac Vomiting Verified 09/19/20 10:27 Iodinated Contrast Media AdvReac Unknown Verified 09/19/20 10:27 Home Medications Medication Instructions Recorded Confirmed Type acetaminophen 325 mg tablet 325 mg PO QID PRN Pain 09/16/20 11/07/24 History (Tylenol) albuterol 90 mcg/actuation aerosol 90 mcg inhalation Q6H PRN sob 09/16/20 History inhaler amlodipine 5 mg tablet (Norvasc) 5 mg PO BID 09/16/20 11/07/24 History aspirin 81 mg tablet,delayed 81 mg PO BID 09/16/20 11/07/24 History release clopidogrel 75 mg tablet (Plavix) 75 mg PO QAM 09/16/20 11/07/24 History finasteride 5 mg tablet 5 mg PO QAM 09/16/20 11/07/24 History fluticasone 250 mcg-salmeterol 50 1 inh inhalation BID 09/16/20 11/07/24 History mcg/dose blistr powdr for inhalation (Advair Diskus) nitroglycerin 0.4 mg sublingual 0.4 mg sublingual UD PRN Chest Pain 09/16/20 11/07/24 History tablet (Nitrostat) pantoprazole 40 mg tablet,delayed 40 mg PO QAM 09/16/20 11/07/24 History release (Protonix) rosuvastatin 20 mg tablet (Crestor) 20 mg PO QPM 09/16/20 11/07/24 History tamsulosin 0.4 mg capsule 0.4 mg PO QAM 09/16/20 11/07/24 History isosorbide dinitrate 5 mg tablet 5 mg PO TID 07/09/24 11/07/24 History mirtazapine 30 mg tablet 30 mg PO HS #30 tabs 07/27/24 11/07/24 Rx docusate sodium 100 mg tablet 100 mg PO HS 09/20/24 11/07/24 History sucroferric oxyhydroxide 500 mg 500 mg PO TIDM 09/20/24 11/07/24 History chewable tablet (Velphoro) amiodarone 200 mg tablet 200 mg PO UD #30 tabs 11/11/24 Rx carvedilol 12.5 mg tablet 12.5 mg PO BIDM #60 tabs 11/11/24 Rx guaifenesin 600 mg tablet, 600 mg PO Q12 #10 tabs 11/11/24 Rx extended release 12 hr (Mucinex) hydralazine 10 mg tablet 20 mg (2 x 10 mg) PO TID #30 tabs 11/11/24 Rx torsemide 100 mg tablet 100 mg PO QAM #30 tabs 11/11/24 Rx Past Med/Surg History Problem List (Updated 11/21/24 @ 08:27 by Michael Bianchi DO) Anemia, chronic renal failure Nose septum deviation Nasal bone fracture Fall from or off toilet with subsequent striking against object, initial encounter Subdural hematoma, post-traumatic Paroxysmal atrial fibrillation Elevated troponin (Acute) Chronic heart failure with preserved ejection fraction Elevated troponin I level Acute respiratory failure with hypoxia Respiratory failure Hypoxia (Acute) Dyspnea (Acute) Labile hypertension Labile hypertension Elevated troponin (Acute) Anemia (Acute) Anemia Atrial fibrillation with rapid ventricular response Hyperkalemia Cholelithiasis Gallstones Pneumonia Hypertension, uncontrolled BPH with urinary obstruction Decreased appetite Acute renal failure superimposed on stage 4 chronic kidney disease Acute on chronic heart failure with preserved ejection fraction ASCVD (arteriosclerotic cardiovascular disease) Elevated troponin Acute kidney injury Hypertensive urgency CKD (chronic kidney disease) CHF (congestive heart failure) (Acute) Poorly-controlled hypertension Nausea & vomiting (Acute) Chest pain (Acute) Encounter for pre-operative examination Medical History ESRD (end stage renal disease) on dialysis Penile edema Esophageal dysmotility Slow to wake up after anesthesia Vascular disease, peripheral BPH (benign prostatic hyperplasia) Hiatal hernia Dysphagia Belching continuous x several hours after eating/drinking GERD (gastroesophageal reflux disease) History of kidney cancer 2010 cryoablation therapy; follows with [facility] nephrology 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 Lai/Dr. Mancilla History of TIA (transient ischemic attack) 2018 History of myocardial infarction 1992 Hyperlipemia HTN (hypertension) COPD (chronic obstructive pulmonary disease) Surgical History History of tooth extraction History of vascular surgery stent LLE History of esophagogastroduodenoscopy (EGD) History of colonoscopy History of prior ablation treatment History of heart artery stent "quite a few" (2 placed 03/2019 and mult prior to) History of cardiac catheterization most recent 03/2019 at [facility] - 2 stents placed; mult caths at [facility]; mult stents (unable to recall specifics) History of coronary artery bypass graft x 3 1996 Family History Other Coronary heart disease No family history of adverse response to anesthesia Social History Smoking Status: Former smoker Second Hand Exposure: No; Do You Dip or Chew Tobacco: No; Hx Alcohol Use: No Hx Substance Use: No Preferred Language: Palestinian Communication Ability: Effective News Copy Editor Required: No Beliefs That Will Affect Care: None Current Living Situation: Intermediate Feels Safe at Home: Yes Assistive Devices: Walker Review of Systems Review of Systems: Pertinent positive and negative review of systems as mentioned in the HPI Physical Exam Physical Exam: Constitutional: Alert, nontoxic, interactive HEENT: Mucous membranes moist. Significant contusion over nasal bridge, right orbit, some scleral redness, oozing bright red blood from left nares Neck: Soft, no adenopathy, minimal tenderness Lungs: Clear to auscultation, decreased, no wheezes rales or rhonchi CV: S1-S2, regular Abdomen: Soft, nontender, nondistended Extremities: No significant edema Musculoskeletal: No significant joint tenderness Neuro: No focal deficits, hard of hearing, moves all 4 extremities Psych: Cooperative, normal mood Results & Data Results & Data Vital Signs (Past 12 Hours) Vital Signs Temp Pulse Resp BP Pulse Ox O2 Del Method 11/21/24 06:30 51 L 16 181/87 H 94 Room Air 11/21/24 06:06 50 L 17 199/71 H 94 Room Air 11/21/24 05:03 50 L 17 188/89 H 92 Room Air 11/21/24 04:51 50 L 15 193/81 H 92 Room Air 11/21/24 04:37 36.7 C 94 H 17 184/78 H 92 Room Air 11/21/24 04:33 52 L Diagnostic Findings Reviewed imaging, laboratory and diagnostic studies. Pertinent findings as below. Cervical spine CT no acute fractures Facial CT with lineal fracture left nasal bone with some right septum deviation some bilateral maxillary sinusitis Head CT report showing thin strip of hyperdensity consistent with a possible 4 mm subdural hemorrhage, diffuse microvascular ischemic disease which is stable with atrophy. Chest x-ray personally viewed, persistent haziness right lower lobe with possible effusion, left lower effusion improving. Overall improved from a couple weeks ago when he was in for pneumonia and heart failure. WBCs 4.1 Hemoglobin 9.7, stable Platelets of 164 Coags within normal range Potassium 3.4 Carbon oxide 34 Creatinine 2.81 Code Status & VTE Plan VTE Prophylaxis Plan VTE Prophylaxis will be ordered: Yes
[2024-11-21] MEDS: hydrALAZINE 10 MG TAB PO STA (08:43)
[2024-11-21] MEDS ORDERED: ACETAMINOPHEN 325 MG TAB PO PRN (09:07)
[2024-11-21] MEDS ORDERED: MELATONIN 3 MG TAB PO PRN (09:07)
[2024-11-21] MEDS ORDERED: POLYETHYLENE (MIRALAX) 17 GM PACK PO PRN (09:07)
[2024-11-21] MEDS ORDERED: ONDANSETRON INJ 2 MG/ML 2 ML VIAL IV PRN (09:07)
[2024-11-21] MEDS ORDERED: oxyCODONE HCL IR 5 MG TAB (IMMEDIATE RELEASE) PO PRN (09:07)
[2024-11-21] MEDS: carvediloL 12.5 MG TAB PO SCH (09:43)
[2024-11-21] MEDS: AMIODARONE 200 MG TAB PO SCH (09:43)
[2024-11-21] MEDS: POTASSIUM CHLORIDE CRTAB 20 MEQ TABCR PO STA (09:46)
--- NOTE | 2024-11-21 10:19 | Nephrology Consultation ---
Date of Consultation November 21, 2024 Assessment & Plan (1) ESRD (end stage renal disease) on dialysis: regular Dialysis patient---MWF schedule at [facility]. Compliant with Dialysis. had HD yesterday without issues. has CVC which works fine. Currently no e/o fluid overload and No issues with electrolytes--K and na is acceptable. Next HD will be tomorrow. Given fall and Bleed--no heparin tomorrow. will take minimal UF and also do shorter dialysis of 3 hrs. 3k bath as K is low today at 3.4 (2) Subdural hematoma, post-traumatic: No plan for suregry as he is DNR and No plan for aggressive measures. So far does not seem he is having neurological issues (3) Fall from or off toilet with subsequent striking against object, initial encounter: Plan time spent 48 mins History of Present Illness Attending Physician: Michael Bianchi, DO History of Present Illness 89/M with ESRD on HD---MWF living at [facility]. Presented to the emergency department after fall at home. Had significant hemorrhage from his face and was brought to the emergency room. In the emergency room imaging re vealed nasal bone fracture as well as possible small developing subdural hematoma. Per ED physician report, family requested that the patient be managed here and not be considered for transfer to tertiary care center. C/o Pain and unable to breath through nose. He denies any syncope. He remembers the incident. He denies any chest pain. No shortness of breath, no lightheadedness or dizziness, no cough or cold symptoms, no fever or chills, no nausea or vomiting, no new problems with his bowels or bladder. Patient was just recently in the hospital for Decompensated heart failure + atrial fibrillation with rapid ventricular response. He was started on amiodarone and his other medications were adjusted. He is compliant with his hemodialysis and had his hemodialysis session yesterday. ROS--see above Physical Exam Physical Exam: Constitutional: Alert, oriented. Normal speech. HEENT: Mucous membranes moist. Significant bruise over nose, right orbit Neck: No JVD Lungs: Clear to auscultation, decreased, no wheezes rales or rhonchi CV: S1-S2, regular Abdomen: Soft, nontender, nondistended Extremities: No significant edema Allergies Allergy/AdvReac Type Severity Reaction Status Date / Time ciprofloxacin [From Cipro] AdvReac Vomiting Verified 09/19/20 10:27 Iodinated Contrast Media AdvReac Unknown Verified 09/19/20 10:27 Home Medications Medication Instructions Recorded Confirmed Type acetaminophen 325 mg tablet 325 mg PO QID PRN Pain 09/16/20 11/07/24 History (Tylenol) albuterol 90 mcg/actuation aerosol 90 mcg inhalation Q6H PRN sob 09/16/20 11/07/24 History inhaler amlodipine 5 mg tablet (Norvasc) 5 mg PO BID 09/16/20 11/07/24 History aspirin 81 mg tablet,delayed 81 mg PO BID 09/16/20 11/07/24 History release clopidogrel 75 mg tablet (Plavix) 75 mg PO QAM 09/16/20 11/07/24 History finasteride 5 mg tablet 5 mg PO QAM 09/16/20 11/07/24 History fluticasone 250 mcg-salmeterol 50 1 inh inhalation BID 09/16/20 11/07/24 History mcg/dose blistr powdr for inhalation (Advair Diskus) nitroglycerin 0.4 mg sublingual 0.4 mg sublingual UD PRN Chest Pain 09/16/20 11/07/24 History tablet (Nitrostat) pantoprazole 40 mg tablet,delayed 40 mg PO QAM 09/16/20 11/07/24 History release (Protonix) rosuvastatin 20 mg tablet (Crestor) 20 mg PO QPM 09/16/20 11/07/24 History tamsulosin 0.4 mg capsule 0.4 mg PO QAM 09/16/20 11/07/24 History isosorbide dinitrate 5 mg tablet 5 mg PO TID 07/09/24 11/07/24 History mirtazapine 30 mg tablet 30 mg PO HS #30 tabs 07/27/24 11/07/24 Rx docusate sodium 100 mg tablet 100 mg PO HS 09/20/24 11/07/24 History sucroferric oxyhydroxide 500 mg 500 mg PO TIDM 09/20/24 11/07/24 History chewable tablet (Velphoro) amiodarone 200 mg tablet 200 mg PO UD #30 tabs 11/11/24 Rx carvedilol 12.5 mg tablet 12.5 mg PO BIDM #60 tabs 11/11/24 Rx guaifenesin 600 mg tablet, 600 mg PO Q12 #10 tabs 11/11/24 Rx extended release 12 hr (Mucinex) hydralazine 10 mg tablet 20 mg (2 x 10 mg) PO TID #30 tabs 11/11/24 Rx torsemide 100 mg tablet 100 mg PO QAM #30 tabs 11/11/24 Rx Patient History Medical History ESRD (end stage renal disease) on dialysis Penile edema Esophageal dysmotility Slow to wake up after anesthesia Vascular disease, peripheral BPH (benign prostatic hyperplasia) Hiatal hernia Dysphagia Belching continuous x several hours after eating/drinking GERD (gastroesophageal reflux disease) History of kidney cancer 2010 cryoablation therapy; follows with [facility] nephrology 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 Lai/Dr. Mancilla History of TIA (transient ischemic attack) 2018 History of myocardial infarction 1991 Hyperlipemia HTN (hypertension) COPD (chronic obstructive pulmonary disease) Surgical History History of tooth extraction History of vascular surgery stent LLE History of esophagogastroduodenoscopy (EGD) History of colonoscopy History of prior ablation treatment History of heart artery stent "quite a few" (2 placed 03/2019 and mult prior to) [facility]; mult caths at [facility]; mult stents (unable to recall specifics) History of coronary artery bypass graft x 3 1996 Family History Other Coronary heart disease No family history of adverse response to anesthesia Social History Smoking Status: Former smoker Second Hand Exposure: No; Do You Dip or Chew Tobacco: No; Hx Alcohol Use: No Hx Substance Use: No Preferred Language: Northern Irish Communication Ability: Effective Linoleum Printer Required: No Beliefs That Will Affect Care: None Current Living Situation: [facility] Feels Safe at Home: Yes Assistive Devices: Walker Results & Data Vital Signs (Past 12 Hours) Vital Signs Temp Pulse Resp BP Pulse Ox O2 Del Method 11/21/24 10:00 60 17 96 Room Air 11/21/24 10:00 182/77 H 11/21/24 10:00 182/77 H 11/21/24 09:15 55 L 19 11/21/24 09:00 179/74 H 11/21/24 09:00 179/74 H 11/21/24 08:45 59 L 26 H 91 11/21/24 08:31 191/76 H 11/21/24 08:31 191/76 H 11/21/24 08:18 57 L 27 H 94 11/21/24 08:03 58 L 22 90 11/21/24 08:00 190/83 H 11/21/24 08:00 190/83 H 11/21/24 08:00 190/83 H 11/21/24 08:00 190/83 H 11/21/24 07:39 54 L 18 92 11/21/24 07:30 202/85 H 11/21/24 07:30 202/85 H 11/21/24 07:30 202/85 H 11/21/24 07:30 54 L 17 92 11/21/24 07:28 196/80 H 11/21/24 07:28 196/80 H 11/21/24 07:27 56 L 22 92 11/21/24 07:15 54 L 18 92 11/21/24 06:30 181/87 H 11/21/24 06:30 51 L 16 181/87 H 94 Room Air 11/21/24 06:06 50 L 17 199/71 H 94 Room Air 11/21/24 05:03 50 L 17 188/89 H 92 Room Air 11/21/24 04:51 50 L 15 193/81 H 92 Room Air 11/21/24 04:37 36.7 C 94 H 17 184/78 H 92 Room Air 11/21/24 04:33 52 L Laboratory Results CBC, renal panel Diagnostic Findings X ray and CT scans reviewed
[2024-11-21] MEDS: amLODIPine BESYLATE 5 MG TAB PO SCH (11:05)
[2024-11-21] MEDS: hydrALAZINE 10 MG TAB PO SCH (11:05)
[2024-11-21] MEDS: TAMSULOSIN HCL 0.4 MG CAP PO SCH (11:19)
[2024-11-21] MEDS: TORSEMIDE 100 MG TAB PO SCH (11:19)
[2024-11-21] MEDS: ISOSORBIDE DINITRATE 5 MG TAB PO SCH (11:19)
[2024-11-21] MEDS: FINASTERIDE 5 MG TAB PO SCH (11:20)
[2024-11-21] MEDS: FLUTICASONE/VILANTEROL 200/25MCG 14 PUFFS/INHALER INH SCH (11:20)
[2024-11-21] MEDS: PANTOprazole 40 MG TAB PO SCH (11:20)
[2024-11-21] MEDS ORDERED: OXYMETAZOLINE 0.05% 30 ML BTL PRN (13:40)
[2024-11-21] MEDS: ROSUVASTATIN CALCIUM 20 MG TAB PO SCH (20:20)
[2024-11-21] MEDS: DOCUSATE SODIUM 100 MG CAP PO SCH (20:20)
[2024-11-21] MEDS: MIRTAZAPINE TAB 15 MG TAB PO SCH (20:20)
[2024-11-22 06:43] LABS: Hematocrit (blood only) 27.7 % (42.0-52.0); Hemoglobin 9.7 g/dl (14.0-18.0); Mean Corpuscular Hemoglobin 33.9 pg (25.0-34.0); Mean Corpuscular Volume 96.9 fL (80.0-100.0); Mean Platelet Volume 9.4 fL (9.4-12.4); Platelet Count 162 K/uL (130-400); RDW Coefficient of Variation 14.6 % (11.5-14.5); RDW Standard Deviation 52.3 fL (36.4-46.3); Red Blood Count 2.86 M/uL (4.70-6.10)
[2024-11-22 07:12] LABS: Calcium 8.8 mg/dl (8.6-10.3); Creatinine Clr Calc Pharmacy 10.9 ml/min; Potassium 3.8 mmol/L (3.5-5.1)
--- NOTE | 2024-11-22 08:19 | CT Scan Report ---
CT SCAN OF THE BRAIN WITHOUT IV CONTRAST CLINICAL HISTORY: Follow-up subdural. COMPARISON STUDY: Head CT November 21, 2024. TECHNIQUE: Unenhanced axial CT scan of the brain was performed from the vertex to the skull base. A dose lowering technique was utilized adhering to the principles of ALARA. CT DOSE: 625.8 mGy.cm FINDINGS: A small amount of acute right parafalcine subdural hemorrhage along anterior aspect of the falx on image 23 of 32 measures 4 mm in thickness. This is unchanged. There is no significant mass ef fect. There has been interval development of small CSF attenuation subdural collections overlying the cerebral convexities, left larger than right. The left-sided collection measures 4 mm in thickness. There is no significant midline shift. Ventricular system is unremarkable. Basal cisterns are patent. No findings to suggest acute dural sinus thrombosis or acute territorial infarct. Sinus mucosal thic kening is again noted. There is also a nasal contusion with suspected nondisplaced right nasal bone f racture. There are no calvarial fractures. IMPRESSION: 1. No change in a small acute right parafalcine subdural hematoma since head CT of November 21, 2024. 2. Interval development of small CSF attenuation subdural collections overlying the cerebral convexit ies. These favor acute subdural hygromas. A follow-up head CT in 24 hours is recommended for reassess ment. ACT 112: Negative or not required by law. Electronically signed by: Dwain Gonzalez M.D. 11/22/2024 8:18 AM
--- NOTE | 2024-11-22 10:05 | Dialysis Progress Note ---
Date of Service November 22, 2024 Assessment & Plan Admission and Anticipated Discharge Date Admission Date: November 21, 2024 Subjective Assessment & Plan (1) ESRD (end stage renal disease) on dialysis: regular Dialysis patient---MWF schedule at [facility]. Compliant with Dialysis. had HD yesterday without issues. has CVC which works fine. Currently no e/o fluid overload and No issues with electrolytes--K and na is acceptable. BP seems high but just started dialysis so will see Post dialysis BP. Given fall and Bleed--no heparin. will take minimal UF of 1 kilo and also do shorter dialysis of 3 hrs. 3k bath (2) Subdural hematoma, post-traumatic: No plan for suregry as he is DNR and No plan for aggressive measures. So far does not seem he is having neurological issues (3) Fall from or off toilet with subsequent striking against object, initial encounter: S---Seen During Dialysis. Has More brusining and swelling over rt eye area. ome pain in nose also. CVC woked fine and BP is high at the start of dialysis ROS--see above Physical Exam Physical Exam: Constitutional: Alert, oriented. Normal speech. HEENT: Mucous membranes moist. Significant bruise over nose, right orbit Neck: No JVD Lungs: Clear to auscultation, decreased, no wheezes rales or rhonchi CV: S1-S2, regular Abdomen: Soft, nontender, nondistended Extremities: No significant edema Results & Data Vital Signs (Past 12 Hours) Vital Signs Temp Pulse Pulse Resp BP Pulse Ox O2 Del Method 11/22/24 09:03 57 L 11/22/24 07:44 36.6 C 60 18 184/70 H 91 Room Air 11/22/24 07:33 Room Air 11/22/24 03:15 36.5 C 61 12 169/67 H 90 Room Air 11/21/24 23:15 36.4 C L 56 L 12 177/73 H 93 Room Air 11/21/24 22:32 Room Air 11/21/24 22:27 62
--- NOTE | 2024-11-22 13:47 | Emergency Department Note ---
Impression & Plan Subdural hematoma, Fractured nasal bones, Fall Admit to the [facility] ED Provider Note NAME: MARIANA BRUSH AGE: 89 SEX: Male INFORMANT: Patient and EMS ED PROVIDER(S): Ana María Oakley DO CHIEF COMPLAINT: Fall from the toilet PLAN: Disposition: Admit to the [facility] MEDICAL DECISION MAKING: This is an 89-year-old male patient who fell from the toilet striking his face/head on a shower. He denies losing consciousness but states he had significant epistaxis as a result of the fall. He describes some pain in the bridge of his nose and around his right eye. On physical exam, he has large blood clot within the left nares and contusion noted over the right eye and across the bridge of the nose. Laboratory studies revealed no leukocytosis. Hemoglobin was at 9.7 which is baseline for the patient. Coagulation studies were normal. Creatinine was 2.8 which is normal for the patient as he has a history of end-stage renal disease and takes dialysis. Patient has a history of A-fib. Initially we were told he was on Eliquis but in his med rec it appears that he takes Plavix. CT scan of the brain, cervical spine and facial bones was performed. This revealed nasal bone fractures as well as a very small subdural hematoma along the falx. Patient's neurological exam was completely unremarkable. I had a lengthy conversation with the patient and I spoke with his son on the phone Eulogio who is his power of criminal attorney. They chose to decline transfer to a tertiary care center with neurosurgical or trauma capability. The clot in the left side of the nose was removed and there was no evidence of a septal hematoma. The patient does have significant chronic septal deviation. I discussed the case with the [facility] and they will evaluate for further inpatient care. Care/management discussed with: Power of criminal attorney-Eulogio Brush Triage Nursing notes: reviewed and agree with them. Vital Signs: reviewed and unremarkable Additional History obtained from: EMS Chronic Medical/Social Conditions affecting care: On blood thinners for history of A-fib Prior/ Outside/ External records reviewed: I did review the MAR from his personal care facility Differential Diagnosis: Skull fracture, intracranial trauma, facial bone fractures, C-spine injury Diagnostics, independently interpreted by me: ECG: Sinus bradycardia at a rate of [address] segment elevation or signs of ischemia. There is no ectopy. Cardiac Monitoring: Sinus bradycardia at arate of 48 Imaging studies: Portable chest x-ray: There is a right lower lobe opacity which is old in comparison to previous chest x-rays. There is no other acute findings as per my independent interpretation CT scan of the brain: As per [facility] CT scan of the facial bones: As per [facility] CT scan of the cervical spine: As per [facility] HPI: 89 year old Male arrives for evaluation of fall from the toilet. Patient describes falling off the toilet in his personal care facility in striking the right side of his face and nose off of the edge of his shower. He denies losing consciousness. He describes significant blood loss from his nose bleeding. He does describe being on a blood thinner for his history of atrial fibrillation. PAST MEDICAL HISTORY: See Below, PAST SURGICAL HISTORY: See Below, SOCIAL HISTORY: See Below, HOME MEDICATIONS: See list ALLERGIES: See list VITALS: See Below PHYSICAL EXAMINATION: Primary Survey Airway: Intact Breathing: Normal, breath sounds equal bilaterally Circulation: Skin warm, distal pulses 2+, capillary refill less than 3 seconds Disability Pupils: Equal and reactive to light, 4 mm, brisk GCS: 15, E = 6 V=5 M= 4 Motor Function: Moves all extremities. Sensory: No deficits Secondary Survey GEN: Well developed and well-nourished HEAD: Normal cephalic atraumatic with some edema and contusion noted to the bridge of the nose. There is an area of contusion noted above the right eye EYES: Pupils round reactive to light, conjunctiva clear, extraocular movements intact, no raccoons eyes ENT: No fluid in external acoustic canals, no hemotympanum, no banks's sign, nares patent, oropharynx clear NECK: No JVD, midline trachea, no cervical spine tenderness, HEART: Bradycardic rate and regular rhythm LUNGS: Clear to auscultation bilaterally. CHEST: Chest wall non-tender, no bruising/deformity ABD: No Aguillon-Castellon's or Lockeford's sign, soft, non-tender, no rebound or guarding, PELVIS: Stable to rock BACK: No step offs or deformities, T-L spine non tender EXT: 2+ global pulses, moving all extremities well, +5/5 muscle strength globally NEURO: CNII-XII grossly intact, no sensory deficits. Patient was able to answer questions appropriately. Emergency Department course: An injury alert was called. The patient was evaluated in room B-9. A complete history and physical was performed. The nose had stopped bleeding. An order was placed for continuous cardiac monitoring. The patient was in sinus bradycardia at a rate of 48. A twelve-lead EKG was obtained as described above. A portable chest x-ray was performed. The blood clot was removed from the left nares to further evaluate the nose. Patient went for CT scan of the brain, cervical spine, and facial bones I reviewed the CT findings with the patient's son who is the power of criminal attorney and I discussed the case with the [facility] and they will evaluate for further inpatient care. Past Med/Surg History Problem List (Updated 11/22/24 @ 18:12 by Ana María Oakley DO) Fall (Acute) Fractured nasal bones (Acute) Subdural hematoma (Acute) Anemia, chronic renal failure Nose septum deviation Nasal bone fracture Fall from or off toilet with subsequent striking against object, initial encounter Subdural hematoma, post-traumatic Paroxysmal atrial fibrillation Elevated troponin (Acute) Chronic heart failure with preserved ejection fraction Elevated troponin I level Acute respiratory failure with hypoxia Respiratory failure Hypoxia (Acute) Dyspnea (Acute) Labile hypertension Labile hypertension Elevated troponin (Acute) Anemia (Acute) Anemia Atrial fibrillation with rapid ventricular response Hyperkalemia Cholelithiasis Gallstones Pneumonia Hypertension, uncontrolled BPH with urinary obstruction Decreased appetite Acute renal failure superimposed on stage 4 chronic kidney disease Acute on chronic heart failure with preserved ejection fraction ASCVD (arteriosclerotic cardiovascular disease) Elevated troponin Acute kidney injury Hypertensive urgency CKD (chronic kidney disease) CHF (congestive heart failure) (Acute) Poorly-controlled hypertension Nausea & vomiting (Acute) Chest pain (Acute) Encounter for pre-operative examination Medical History ESRD (end stage renal disease) on dialysis Penile edema Esophageal dysmotility Slow to wake up after anesthesia Vascular disease, peripheral BPH (benign prostatic hyperplasia) Hiatal hernia Dysphagia Belching continuous x several hours after eating/drinking GERD (gastroesophageal reflux disease) History of kidney cancer 2010 cryoablation therapy; follows with [facility] 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 Lai/Dr. Mancilla History of TIA (transient ischemic attack) 2018 History of myocardial infarction 1992 Hyperlipemia HTN (hypertension) COPD (chronic obstructive pulmonary disease) Surgical History History of tooth extraction History of vascular surgery stent LLE History of esophagogastroduodenoscopy (EGD) History of colonoscopy History of prior ablation treatment History of heart artery stent "quite a few" (2 placed 03/2019 and mult prior to) History of cardiac catheterization most recent 03/2019 at [facility] - 2 stents placed; mult caths at [facility]; mult stents (unable to recall specifics) History of coronary artery bypass graft x 3 1996 Family History Other Coronary heart disease No family history of adverse response to anesthesia Social History Smoking Status: Never smoker Second Hand Exposure: No; Do You Dip or Chew Tobacco: No; Hx Alcohol Use: No Hx Substance Use: No Preferred Language: Turkmen Communication Ability: Effective Human Resources Hr Representative Required: No Beliefs That Will Affect Care: None Current Living Situation: [facility] Other Information That Helps Us Care for You: No Feels Safe at Home: Yes Safety Concerns: Feels Safe At This Time Assistive Devices: Walker Allergies Allergies Allergy/AdvReac Type Severity Reaction Status Date / Time ciprofloxacin [From Cipro] AdvReac Vomiting Verified 09/19/20 10:27 Iodinated Contrast Media AdvReac Unknown Verified 09/19/20 10:27 Home Meds Home Medications Medication Instructions Recorded Confirmed amlodipine 5 mg tablet (Norvasc) 10 mg PO QAM 09/16/20 11/21/24 aspirin 81 mg tablet,delayed 81 mg PO QAM 09/16/20 11/21/24 release clopidogrel 75 mg tablet (Plavix) 75 mg PO QAM 09/16/20 11/21/24 finasteride 5 mg tablet 5 mg PO QAM 09/16/20 11/21/24 nitroglycerin 0.4 mg sublingual 0.4 mg sublingual UD PRN Chest Pain 09/16/20 11/21/24 tablet (Nitrostat) pantoprazole 40 mg tablet,delayed 40 mg PO QAM 09/16/20 11/21/24 release (Protonix) rosuvastatin 20 mg tablet (Crestor) 20 mg PO HS 09/16/20 11/21/24 tamsulosin 0.4 mg capsule 0.4 mg PO HS 09/16/20 11/21/24 isosorbide dinitrate 5 mg tablet 5 mg PO QID 07/09/24 11/21/24 docusate sodium 100 mg tablet 100 mg PO HS 09/20/24 11/21/24 acetaminophen 500 mg tablet 1,000 mg PO [id number] 11/21/24 11/21/24 acetaminophen 500 mg tablet 1,000 mg PO Q4H PRN Pain/Fever 11/21/24 11/21/24 albuterol sulfate 90 mcg/actuation 2 puff inhalation Q5H PRN 11/21/24 11/21/24 aerosol inhaler Shortness Of Breath amiodarone 200 mg tablet 200 mg PO DAILY 11/21/24 11/21/24 calcium acetate(phosphat bind) 667 667 mg PO TIDWMEAL 11/21/24 11/21/24 mg capsule carvedilol 12.5 mg tablet 6.25 mg PO BIDWMEAL 11/21/24 11/21/24 fluticasone 100 mcg-salmeterol 50 1 inh inhalation BID 11/21/24 11/21/24 mcg/dose blistr powdr for inhalation (Advair Diskus) lidocaine 4 % topical patch 1 patch topical DAILY PRN Lower 11/21/24 11/21/24 (Aspercreme (lidocaine)) back pain lidocaine 5 % topical patch 1 patch topical DAILY PRN Pain 11/21/24 11/21/24 ondansetron 8 mg disintegrating 4 mg PO Q8H PRN Nausea And Vomiting 11/21/24 11/21/24 tablet polyethylene glycol 3350 17 17 g PO DAILY PRN Constipation 11/21/24 11/21/24 gram/dose oral powder Previous Rx's Medication Instructions Recorded hydralazine 10 mg tablet 20 mg (2 x 10 mg) PO TID #30 tabs 11/11/24 torsemide 100 mg tablet 100 mg PO QAM #30 tabs 11/11/24 Results & Data (ED) Laboratory Data 11/22/24 06:18 11/22/24 06:18 Lab Results 11/21/24 Range/Units 04:50 WBC 4.14 L (4.8-10.8) K/ul RBC 2.86 L (4.70-6.10) M/uL Hgb 9.7 L (14.0-18.0) g/dl Hct 27.5 L (42.0-52.0) % MCV 96.2 (80.0-100.0) fL MCH 33.9 (25.0-34.0) pg MCHC 35.3 (32.0-36.0) g/dL RDW Std Deviation 51.2 H (36.4-46.3) fL RDW Coeff of Jessica 14.6 H (11.5-14.5) % Plt Count 164 (130-400) K/uL MPV 9.2 L (9.4-12.4) fL Immature Gran % (Auto) 0.2 % Neut % (Auto) 61.7 % Lymph % (Auto) 17.1 % Fisher % (Auto) 15.2 % Eos % (Auto) 5.1 % Baso % (Auto) 0.7 % Neut # (Auto) 2.55 (1.40-6.50) K/uL Lymph # (Auto) 0.71 L (1.20-3.40) K/uL Fisher # (Auto) 0.63 H (0.11-0.59) K/uL Eos # (Auto) 0.21 (0.00-0.50) K/uL Baso # (Auto) 0.03 (0.00-0.20) K/uL Immature Gran # (Auto) 0.01 (0.01-0.20) K/uL PT 11.2 (9.0-12.0) Seconds INR 1.0 (0.9-1.1) APTT 28 (21-31) Seconds PTT Ratio 1.0 Sodium 139 (136-145) mmol/L Potassium 3.4 L (3.5-5.1) mmol/L Chloride 99 (98-107) mmol/L Carbon Dioxide 34 H (21-32) mmol/L Anion Gap 6 (3-11) BUN 12 (6-23) mg/dl Creatinine 2.81 H (0.6-1.4) mg/dl Est Cr Clr Drug Dosing 15.2 ml/min eGFR 20.95 BUN/Creatinine Ratio 4.3 L (10-20) Glucose 93 (70-99(Fasting)) mg/dl Calcium 8.8 (8.6-10.3) mg/dl Total Bilirubin 0.4 (0.2-1.0) mg/dl AST 12 L (13-39) U/L ALT 3 L (7-52) U/L Alkaline Phosphatase 39 (34-104) U/L Total Protein 5.8 L (6.0-8.3) gm/dl Albumin 3.5 (3.4-5.0) gm/dl Globulin 2.3 L (2.5-4.0) gm/dl Albumin/Globulin Ratio 1.5 (0.9-2) Administered Medications Amiodarone HCl (Amiodarone 200 Mg Tab) 200 mg PO DAILY [facility] Stop: 12/21/24 09:14 Last Admin: 11/22/24 08:30 Dose: 200 mg Documented By: [facility] Admin: 11/21/24 09:43 Dose: 200 mg Documented By: NANNETTE Amlodipine Besylate (Amlodipine Besylate 5 Mg Tab) 5 mg PO BID [facility] Stop: 12/21/24 09:14 Last Admin: 11/22/24 08:30 Dose: 5 mg Documented By: [facility] Admin: 11/21/24 20:21 Dose: 5 mg Documented By: pull worker: 11/21/24 11:05 Dose: Not Given Documented By: NANNETTE Carvedilol (Carvedilol 12.5 Mg Tab) 12.5 mg PO BIDM [facility] Stop: 12/21/24 08:09 Last Admin: 11/22/24 17:03 Dose: Not Given Documented By: [facility] Admin: 11/22/24 08:31 Dose: 12.5 mg Documented By: [facility] Admin: 11/21/24 19:26 Dose: Not Given Documented By: pull worker: 11/21/24 09:43 Dose: 12.5 mg Documented By: NANNETTE Docusate Sodium (Docusate Sodium 100 Mg Cap) 100 mg PO HS [facility] Stop: 12/21/24 20:59 Last Admin: 11/21/24 20:20 Dose: 100 mg Documented By: BRANDON Finasteride (Finasteride 5 Mg Tab) 5 mg PO QAM [facility] Stop: 12/21/24 09:14 Last Admin: 11/22/24 08:31 Dose: 5 mg Documented By: [facility] Admin: 11/21/24 11:20 Dose: 5 mg Documented By: NANNETTE Fluticasone/Vilanterol (Fluticasone/Vilanterol 200/25mcg 14 Puffs/Inhaler) 1 puffs INH DAILY [facility] Stop: 12/21/24 09:14 Last Admin: 11/22/24 08:32 Dose: 1 puffs Documented By: [facility] Admin: 11/21/24 11:20 Dose: 1 puffs Documented By: NANNETTE Hydralazine HCl (Hydralazine 10 Mg Tab) 20 mg PO TID [facility] Stop: 12/21/24 09:14 Last Admin: 11/22/24 13:50 Dose: 20 mg Documented By: [facility] Admin: 11/22/24 08:30 Dose: 20 mg Documented By: [facility] Admin: 11/21/24 20:20 Dose: 20 mg Documented By: pull worker: 11/21/24 12:29 Dose: 20 mg Documented By: Admin: 11/21/24 11:05 Dose: Not Given Documented By: NANNETTE Isosorbide Dinitrate (Isosorbide Dinitrate 5 Mg Tab) 5 mg PO TODAY@0700,1200,1700 [facility] Stop: 12/21/24 09:14 Last Admin: 11/22/24 17:02 Dose: 5 mg Documented By: [facility] Admin: 11/22/24 13:50 Dose: 5 mg Documented By: [facility] Admin: 11/22/24 05:35 Dose: 5 mg Documented By: pull worker: 11/21/24 19:32 Dose: 5 mg Documented By: pull worker: 11/21/24 12:27 Dose: 5 mg Documented By: [facility] Admin: 11/21/24 11:19 Dose: 5 mg Documented By: NANNETTE Mirtazapine (Mirtazapine Tab 15 Mg Tab) 30 mg PO HS [facility] Stop: 12/21/24 20:59 Last Admin: 11/21/24 20:20 Dose: 30 mg Documented By: BRANDON Miscellaneous (Order Awaiting Action) 1 each N/A QS [facility] Stop: 12/21/24 08:29 Last Admin: 11/22/24 17:01 Dose: Not Given Documented By: [facility] Admin: 11/22/24 09:37 Dose: Not Given Documented By: [facility] Admin: 11/22/24 00:45 Dose: Not Given Documented By: pull worker: 11/21/24 18:13 Dose: Not Given Documented By: [facility] Admin: 11/21/24 11:20 Dose: Not Given Documented By: NANNETTE Pantoprazole Sodium (Pantoprazole 40 Mg Tab) [facility] Stop: 12/21/24 09:14 Last Admin: 11/22/24 08:30 Dose: 40 mg Documented By: Admin: 11/21/24 11:20 Dose: 40 mg Documented By: NANNETTE Rosuvastatin Calcium (Rosuvastatin Calcium 20 Mg Tab) 20 mg PO QPM [facility] Stop: 12/21/24 20:59 Last Admin: 11/21/24 20:20 Dose: 20 mg Documented By: BRANDON Tamsulosin HCl (Tamsulosin Hcl 0.4 Mg Cap) 0.4 mg PO [facility] Stop: 12/21/24 09:29 Last Admin: 11/22/24 08:31 Dose: 0.4 mg Documented By: Admin: 11/21/24 11:19 Dose: 0.4 mg Documented By: NANNETTE Torsemide (Torsemide 100 Mg Tab) 100 mg PO [facility] Stop: 12/21/24 09:29 Last Admin: 11/22/24 08:31 Dose: 100 mg Documented By: Admin: 11/21/24 11:19 Dose: 100 mg Documented By: NANNETTE Discontinued Medications Amlodipine Besylate (Amlodipine Besylate 5 Mg Tab) 5 mg PO NOW ONE Stop: 11/21/24 07:35 Last Admin: 11/21/24 07:48 Dose: 5 mg Documented By: NANNETTE Hydralazine HCl (Hydralazine 10 Mg Tab) 20 mg PO NOW STA Stop: 11/21/24 07:36 Last Admin: 11/21/24 08:43 Dose: 20 mg Documented By: KAYLEE Oxymetazoline HCl (Oxymetazoline 0.05% 30 Ml Btl) Confirm Administered Dose 150 sprays .ROUTE .[facility] ONE Stop: 11/21/24 05:05 Last Admin: 11/21/24 05:56 Dose: 2 sprays Documented By: KIMBERLY Potassium Chloride (Potassium Chloride Crtab 20 Meq Tabcr) 40 meq PO NOW STA Stop: 11/21/24 09:08 Last Admin: 11/21/24 09:46 Dose: 40 meq Documented By: [facility] Discharge Plan Visit Data Chief Complaint: Fall ED Provider: Ana María Oakley Discharge Problem: Subdural hematoma, Fractured nasal bones, Fall Patient Disposition: Admitted As Inpatient Condition: Fair Discharge Instructions Interventions: ED Discharge Assessment Last Done: 11/21/24 09:14
--- NOTE | 2024-11-22 15:19 | Hospitalist Progress Note ---
Date of Service November 22, 2024 Assessment & Plan (1) Subdural hematoma, post-traumatic: (2) Fall from or off toilet with subsequent striking against object, initial encounter: (3) Nasal bone fracture: (4) Nose septum deviation: (5) Paroxysmal atrial fibrillation: (6) Chronic heart failure with preserved ejection fraction: (7) Labile hypertension: (8) ESRD (end stage renal disease) on dialysis: (9) ASCVD (arteriosclerotic cardiovascular disease): (10) Anemia, chronic renal failure: (11) COPD (chronic obstructive pulmonary disease): Plan Mr. Quinn is an 89yo gentleman with a complex PMHx significant for CAD (s/p multiple stents and CABG), PAD s/p bilateral common iliac stents, TIA, bilateral carotid stenosis, ESRD on HD MWF, atrial fibrillation diagnosed in Jul 2024, systolic and diastolic CHF, COPD, GERD presenting from [facility] s/p mechanical fall. Patient noted to have subsequent nasal bone fracture and small subdural hematoma. Repeat CT this am with stable hematoma, however, acute subdural hygroma development noted. Plan for repeat CT in am #Acute subdural hematoma #Acute subdural hygromas #Mechanical fall CT this am with stable parafalcine blood and development of hygromas, repeat CT in am Discussed on phone with Dr Swain: repeat CT in 1 week if stable tomorrow, avoid DAPT can continue ASA tomorrow am Plan for dispo to [facility] #COPD Continue inhalers for COPD management #ESRD Consult nephrology for ongoing hemodialysis needs Replace potassium Therapies Case management for disposition planning Discussed Kam directives with patient and reviewed previous records, DNR/DNI Conversation with patient's son, Eulogio. Updated on diagnosis, agrees with plan for conservative management and monitoring. #Chronic HFpEF #obstructive CAD s/p CABG 1996, CHARMAINE 2018 volume control with HD continue statin continue ASA in am hold plavix iso above #PAF continue amiodarone 200 mg daily continue coreg BID #HTN continue home regimen #ESRD on HD MWF continue HD per nephrology #PAD s/p bilateral common iliac stents Continue with aspirin hold plavix #Anemia of chronic disease stable Continue other home meds DVT Ppx: scds Code status: DNR/DNI Dispo: med tele, dispo tomorrow Admission and Anticipated Discharge Date Admission Date: November 21, 2024 Subjective NAEO eating breakfast this am, no focal neurologic deficits noted denies headache or any uncontrolled pain at this time reports eagerness to return to [facility]--agreed to stay for repeat ct in am given hygroma development Physical Exam Constitutional: WD/WN, vitals as above Respiratory: normal respiratory effort, lungs clear to auscultation Cardiovascular: RRR, no murmur, no edema Skin: large area of eccymosis around right orbit and across nasal bridge, swelling improved throughout day, able to open eye, mild scleral injection noted Results & Data Results & Data Vital Signs (Past 12 Hours) Vital Signs Temp Pulse Pulse Pulse Resp BP BP 11/22/24 15:17 36.9 C 54 L 20 170/70 H 11/22/24 14:53 49 L 11/22/24 12:00 51 L 149/73 H 11/22/24 11:30 51 L 135/71 11/22/24 11:00 49 L 122/65 11/22/24 10:30 50 L 155/75 H 11/22/24 10:01 53 L 170/77 H 11/22/24 09:50 36.7 C 52 L 11/22/24 09:03 57 L 11/22/24 07:44 36.6 C 60 18 184/70 H 11/22/24 07:33 Pulse Ox O2 Del Method 11/22/24 15:17 93 Room Air 11/22/24 14:53 11/22/24 12:00 11/22/24 11:30 11/22/24 11:00 11/22/24 10:30 11/22/24 10:01 11/22/24 09:50 11/22/24 09:03 11/22/24 07:44 91 Room Air 11/22/24 07:33 Room Air Laboratory Results Short CBC 11/22/24 Range/Units 06:18 WBC 4.70 L (4.8-10.8) K/ul Hgb 9.7 L (14.0-18.0) g/dl Hct 27.7 L (42.0-52.0) % Plt Count 162 (130-400) K/uL BMP 11/22/24 06:18 Sodium 140 Potassium 3.8 Chloride 103 Carbon Dioxide 33 H BUN 20 Creatinine 3.99 H D Glucose 87 Calcium 8.8 Medications Administered Home Medications Medication Instructions Recorded Confirmed Last Taken amlodipine 5 mg tablet (Norvasc) 10 mg PO QAM 09/16/20 11/21/24 11/20/24 aspirin 81 mg tablet,delayed 81 mg PO QAM 09/16/20 11/21/24 11/20/24 release clopidogrel 75 mg tablet (Plavix) 75 mg PO QAM 09/16/20 11/21/24 11/20/24 finasteride 5 mg tablet 5 mg PO QAM 09/16/20 11/21/24 11/20/24 nitroglycerin 0.4 mg sublingual 0.4 mg sublingual UD PRN Chest Pain 09/16/20 11/21/24 07/09/24 tablet (Nitrostat) pantoprazole 40 mg tablet,delayed 40 mg PO QAM 09/16/20 11/21/24 11/20/24 release (Protonix) rosuvastatin 20 mg tablet (Crestor) 20 mg PO HS 09/16/20 11/21/24 11/20/24 tamsulosin 0.4 mg capsule 0.4 mg PO HS 09/16/20 11/21/24 11/20/24 isosorbide dinitrate 5 mg tablet 5 mg PO QID 07/09/24 11/21/24 11/20/24 docusate sodium 100 mg tablet 100 mg PO HS 09/20/24 11/21/24 11/20/24 hydralazine 10 mg tablet 20 mg (2 x 10 mg) PO TID #30 tabs 11/11/24 11/21/24 11/20/24 torsemide 100 mg tablet 100 mg PO QAM #30 tabs 11/11/24 11/21/24 11/20/24 acetaminophen 500 mg tablet 1,000 mg PO 3XWK 11/21/24 11/21/24 11/20/24 acetaminophen 500 mg tablet 1,000 mg PO Q4H PRN Pain/Fever 11/21/24 11/21/24 Unknown albuterol sulfate 90 mcg/actuation 2 puff inhalation Q5H PRN 11/21/24 11/21/24 Unknown aerosol inhaler Shortness Of Breath amiodarone 200 mg tablet 200 mg PO DAILY 11/21/24 11/21/24 11/20/24 calcium acetate(phosphat bind) 667 667 mg PO TIDWMEAL 11/21/24 11/21/24 11/20/24 mg capsule carvedilol 12.5 mg tablet 6.25 mg PO BIDWMEAL 11/21/24 11/21/24 11/20/24 fluticasone 100 mcg-salmeterol 50 1 inh inhalation BID 11/21/24 11/21/24 11/20/24 mcg/dose blistr powdr for inhalation (Advair Diskus) lidocaine 4 % topical patch 1 patch topical DAILY PRN Lower 11/21/24 11/21/24 Unknown (Aspercreme (lidocaine)) back pain lidocaine 5 % topical patch 1 patch topical DAILY PRN Pain 11/21/24 11/21/24 Unknown ondansetron 8 mg disintegrating 4 mg PO Q8H PRN Nausea And Vomiting 11/21/24 11/21/24 Unknown tablet polyethylene glycol 3350 17 17 g PO DAILY PRN Constipation 11/21/24 11/21/24 Unknown gram/dose oral powder Active Medications Generic Name Dose Route Start Last Admin Trade Name Félixq PRN Reason Stop Dose Admin Amiodarone HCl 200 mg 11/21/24 09:15 11/22/24 08:30 Amiodarone 200 Mg Tab PO 12/21/24 09:14 200 mg DAILY GERALDINE Administration Amlodipine Besylate 5 mg 11/21/24 09:15 11/22/24 08:30 Amlodipine Besylate 5 Mg Tab PO 12/21/24 09:14 5 mg BID GERALDINE Administration Carvedilol 12.5 mg 11/21/24 08:10 11/22/24 08:31 Carvedilol 12.5 Mg Tab PO 12/21/24 08:09 12.5 mg BIDM GERALDINE Administration Docusate Sodium 100 mg 11/21/24 21:00 11/21/24 20:20 Docusate Sodium 100 Mg Cap PO 12/21/24 20:59 100 mg HS GERALDINE Administration Finasteride 5 mg 11/21/24 09:15 11/22/24 08:31 Finasteride 5 Mg Tab PO 12/21/24 09:14 5 mg QAM GERALDINE Administration Fluticasone/Vilanterol 1 puffs 11/21/24 09:15 11/22/24 08:32 Fluticasone/Vilanterol 200/25mcg 14 Puffs/Inhaler INH 12/21/24 09:14 1 puffs DAILY GERALDINE Administration Hydralazine HCl 20 mg 11/21/24 09:15 11/22/24 13:50 Hydralazine 10 Mg Tab PO 12/21/24 09:14 20 mg TID GERALDINE Administration Isosorbide Dinitrate 5 mg 11/21/24 09:15 11/22/24 13:50 Isosorbide Dinitrate 5 Mg Tab PO 12/21/24 09:14 5 mg TODAY@0700,1200,1700 GERALDINE Administration Mirtazapine 30 mg 11/21/24 21:00 11/21/24 20:20 Mirtazapine Tab 15 Mg Tab PO 12/21/24 20:59 30 mg HS GERALDINE Administration Miscellaneous 1 each 11/21/24 08:30 11/22/24 09:37 Order Awaiting Action N/A 12/21/24 08:29 Not Given QS GERALDINE Pantoprazole Sodium 40 mg 11/21/24 09:15 11/22/24 08:30 Pantoprazole 40 Mg Tab PO 12/21/24 09:14 40 mg QAM GERALDINE Administration Rosuvastatin Calcium 20 mg 11/21/24 21:00 11/21/24 20:20 Rosuvastatin Calcium 20 Mg Tab PO 12/21/24 20:59 20 mg QPM GERALDINE Administration Tamsulosin HCl 0.4 mg 11/21/24 09:30 11/22/24 08:31 Tamsulosin Hcl 0.4 Mg Cap PO 12/21/24 09:29 0.4 mg QAM GERALDINE Administration Torsemide 100 mg 11/21/24 09:30 11/22/24 08:31 Torsemide 100 Mg Tab PO 12/21/24 09:29 100 mg QAM GERALDINE Administration
--- NOTE | 2024-11-22 16:02 | Communication Note ---
Date of Service: November 22, 2024 I was contacted regarding Manish Murphy who is an 89 yo M presenting with a small parafalcine SDH. He has a history of PAD with stents on DAPT prior to admission. DAPT has been held and SDH is stable. Recommend starting single antiplatelet with aspirin 81mg daily and plan for repeat CT head in a week. Return with any new or worsening neurologic symptoms. Would otherwise hold off on full DAPT for at least 6 weeks.
--- NOTE | 2024-11-22 22:06 | Electrocardiogram Report ---
Test Reason : Blood Pressure : */* mmHG Vent. Rate : 49 BPM Atrial Rate : 49 BPM P-R Int : 168 ms QRS Dur : 106 ms QT Int : 536 ms P-R-T Axes : 13 80 46 degrees QTcB Int : 484 ms Sinus bradycardia Minimal voltage criteria for LVH, may be normal variant ( Sokolow-[place] ) Prolonged QT When compared with ECG of 09-Nov-2024 11:44, QT has lengthened Confirmed by Carlos Kelly ([id number]) on 11/22/2024 10:06:19 PM Referred By: REFERRED SELF Confirmed By: Carlos Kelly
[2024-11-22 23:59] VITALS: O2SAT 92
[2024-11-23 07:56] VITALS: RESP 16
[2024-11-23] MEDS: ASPIRIN 81 MG ECTAB PO SCH (08:00)
--- NOTE | 2024-11-23 08:03 | Electrocardiogram Report ---
Test Reason : Blood Pressure : */* mmHG Vent. Rate : 50 BPM Atrial Rate : 50 BPM P-R Int : 174 ms QRS Dur : 102 ms QT Int : 528 ms P-R-T Axes : -27 52 16 degrees QTcB Int : 481 ms Sinus bradycardia Prolonged QT Abnormal ECG When compared with ECG of 21-Nov-2024 04:54, T wave amplitude has decreased in Lateral leads Confirmed by Carlos Kelly ([id number]) on 11/23/2024 8:02:54 AM Referred By: REFERRED SELF Confirmed By: Carlos Kelly
--- NOTE | 2024-11-23 08:27 | CT Scan Report ---
EXAM: CT head/brain wo con CLINICAL HISTORY: Hygromas developing, stable? TECHNIQUE: An axial non-contrast CT scan of the brain was performed from the skull base to the high parietal region. One of the following dose reduction techniques were utilized for this exam: Automated exposure control, adjustment of the mA and/or kV according to patient size, use of iterative reconstruction. COMPARISON: 11/21/2024. FINDINGS: Brain Parenchyma: Redemonstration of a small subdural hemorrhage along the anterior falx. No significant interval change in the maximum thickness measures about 3.62 mm Diffuse calcification is noted involving the falx and tentorium. stable A few tiny, ill-defined [id number] areas are noted bilaterally in the subcortical and deep white matter, suggesting microvascular ischemic changes. Ventricular System: The ventricular system, cortical sulci, and basal cisterns are prominent and consistent with senile changes. Subarachnoid Spaces: Normal sulci and cisterns. No evidence of subarachnoid hemorrhage or extra-axial fluid collections. Cerebellum and Brainstem: Normal size and signal. No masses, lesions, or areas of abnormal density. Orbits: Normal appearance of the globes, optic nerves, and extraocular muscles. No evidence of orbital masses or abnormal density. Sinuses: Bilateral ethmoid and maxillary sinusitis with superimposed hyperdensities. stable Mastoid Air Cells: Clear mastoid air cells. No evidence of mastoiditis. Skull: Normal skull morphology. IMPRESSION: Redemonstration of a small subdural hemorrhage along the anterior falx. No significant interval change in the maximum thickness measures about 3.62 mm. Age-appropriate brain involutional and chronic microvascular ischemic changes. Compared to the previous no significant interval change is seen. Electronically signed by Sony العراقي 11-23-2024 08:27 AM
--- NOTE | 2024-11-23 11:28 | Discharge Summary ---
Discharge Summary Date of Service November 23, 2024 Principal Dx & Hospital Course #1 = Principal Diagnosis (1) Subdural hematoma, post-traumatic: (2) Fall from or off toilet with subsequent striking against object, initial encounter: (3) Nasal bone fracture: (4) Nose septum deviation: (5) Paroxysmal atrial fibrillation: (6) Chronic heart failure with preserved ejection fraction: (7) Labile hypertension: (8) ESRD (end stage renal disease) on dialysis: (9) ASCVD (arteriosclerotic cardiovascular disease): (10) Anemia, chronic renal failure: (11) COPD (chronic obstructive pulmonary disease): Plan Mr. Quinn is an 89yo gentleman with a complex PMHx significant for CAD (s/p multiple stents and CABG), PAD s/p bilateral common iliac stents, TIA, bilateral carotid stenosis, ESRD on HD MWF, atrial fibrillation diagnosed in Jul 2024, systolic and diastolic CHF, COPD, GERD presenting from [facility] s/p mechanical fall. Patient noted to have subsequent nasal bone fracture and small subdural hematoma. CT day after admission was with stable hematoma, however, acute subdural hygroma development noted. Repeat CT on day of discharge noted stable findings overall without changes. Contacted neurology to discuss DAPT therapy who recommended starting single antiplatelet with aspirin 81mg daily and plan for repeat CT head in a week. Return with any new or worsening neurologic symptoms. Would otherwise hold off on full DAPT for at least 6 weeks. On day of discharge, patient was AOx3 and eager to return to [facility] with . He denies any new acute concerns. Plan was discussed with Eulogio who agreed. #Acute subdural hematoma #Acute subdural hygromas #Mechanical fall CT this am with stable parafalcine blood and development of hygromas, repeat CT in am Discussed on phone with Dr Swain: repeat CT stable, plan for repeat CT in 1 week continue ASA consider dapt in 6 weeks #COPD Continue inhalers for COPD management #ESRD Consult nephrology for ongoing hemodialysis needs Replace potassium Therapies Case management for disposition planning Discussed Kam directives with patient and reviewed previous records, DNR/DNI Conversation with patient's son, Eulogio. Updated on diagnosis, agrees with plan for conservative management and monitoring. #Chronic HFpEF #obstructive CAD s/p CABG 1996, CHARMAINE 2018 volume control with HD continue statin continue ASA in am hold plavix iso above #PAF continue amiodarone 200 mg daily continue coreg BID #HTN continue home regimen #ESRD on HD MWF continue HD per nephrology #PAD s/p bilateral common iliac stents Continue with aspirin hold plavix #Anemia of chronic disease stable Continue other home meds Notes For Next Care Provider Repeat CT head in 1 week Plavix held--discussion on risk v benefits of DAPT in 6 weeks recommended Medication Changes From Visit Hold plavix, can consider DAPT no sooner than 6 weeks Admission HPI Per Admitting Provider Patient is an 89-year-old gentleman who is at [facility]. Gavin ts to the emergency department after he got up in the middle of the night and ambulated to the bathroom without his walker. Patient reports that as he was sitting down on the toilet he fell forward and his face landed into the edge of the shower. Had significant hemorrhage from his face and was brought to the emergency room. In the emergency room imaging revealed nasal bone fracture as well as possible small developing subdural hematoma. Per ED physician report, family requested that the patient be managed here and not be considered for transfer to tertiary care center. He was referred to our service for further evaluation. Time my evaluation the patient denies any real significant amounts of pain. Is having a little bit of oozing from his nose. He denies any syncope. He fully remembers the incident. He readily admits that he did not use his walker when going into the bathroom this morning. He remembers falling forward off the toilet and hitting his face on the shower. He denies any chest pain. No shortness of breath, no lightheadedness or dizziness, no cough or cold symptoms, no fever or chills, no nausea or vomiting, no new problems with his bowels or bladder. Patient was just recently in the hospital for Decompensated heart failure. During that time he also had developed atrial fibrillation with rapid ventricular response. He was started on amiodarone and his other medications were adjusted. At that time it was determined that the risks of bleeding associated with falls outweighed benefits of anticoagulation and he was not started on anticoagulation. He was continued on his dual antiplatelet therapy of aspirin and Plavix. He is compliant with his hemodialysis and had his hemodialysis session yesterday. He is a Wednesday dialysis patient. Admission Exam Per Admitting Provider Constitutional: Alert, nontoxic, interactive HEENT: Mucous membranes moist. Significant contusion over nasal bridge, right orbit, some scleral redness, oozing bright red blood from left nares Neck: Soft, no adenopathy, minimal tenderness Lungs: Clear to auscultation, decreased, no wheezes rales or rhonchi CV: S1-S2, regular Abdomen: Soft, nontender, nondistended Extremities: No significant edema Musculoskeletal: No significant joint tenderness Neuro: No focal deficits, hard of hearing, moves all 4 extremities Psych: Cooperative, normal mood Discharge Exam Constitutional WD/WN, vitals as above Respiratory normal respiratory effort, lungs clear to auscultation Cardiovascular RRR, no murmur, no edema Neurologic PERRL, EOMI, accommodation nl, no face palsy, no dysarthria Updated Medication List Medication Instructions Recorded Confirmed Type amlodipine 5 mg tablet (Norvasc) 10 mg PO QAM 09/16/20 11/21/24 History aspirin 81 mg tablet,delayed 81 mg PO QAM 09/16/20 11/21/24 History release finasteride 5 mg tablet 5 mg PO QAM 09/16/20 11/21/24 History nitroglycerin 0.4 mg sublingual 0.4 mg sublingual UD PRN Chest Pain 09/16/20 11/21/24 History tablet (Nitrostat) pantoprazole 40 mg tablet,delayed 40 mg PO QAM 09/16/20 11/21/24 History release (Protonix) rosuvastatin 20 mg tablet (Crestor) 20 mg PO HS 09/16/20 11/21/24 History tamsulosin 0.4 mg capsule 0.4 mg PO HS 09/16/20 11/21/24 History isosorbide dinitrate 5 mg tablet 5 mg PO QID 07/09/24 11/21/24 History docusate sodium 100 mg tablet 100 mg PO HS 09/20/24 11/21/24 History hydralazine 10 mg tablet 20 mg (2 x 10 mg) PO TID #30 tabs 11/11/24 11/21/24 Rx torsemide 100 mg tablet 100 mg PO QAM #30 tabs 11/11/24 11/21/24 Rx acetaminophen 500 mg tablet 1,000 mg PO 3XWK 11/21/24 11/21/24 History acetaminophen 500 mg tablet 1,000 mg PO Q4H PRN Pain/Fever 11/21/24 11/21/24 History albuterol sulfate 90 mcg/actuation 2 puff inhalation Q5H PRN 11/21/24 11/21/24 History aerosol inhaler Shortness Of Breath amiodarone 200 mg tablet 200 mg PO DAILY 11/21/24 11/21/24 History calcium acetate(phosphat bind) 667 667 mg PO TIDWMEAL 11/21/24 11/21/24 History mg capsule carvedilol 12.5 mg tablet 6.25 mg PO BIDWMEAL 11/21/24 11/21/24 History fluticasone 100 mcg-salmeterol 50 1 inh inhalation BID 11/21/24 11/21/24 History mcg/dose blistr powdr for inhalation (Advair Diskus) lidocaine 4 % topical patch 1 patch topical DAILY PRN Lower 11/21/24 11/21/24 History (Aspercreme (lidocaine)) back pain lidocaine 5 % topical patch 1 patch topical DAILY PRN Pain 11/21/24 11/21/24 History ondansetron 8 mg disintegrating 4 mg PO Q8H PRN Nausea And Vomiting 11/21/24 11/21/24 History tablet polyethylene glycol 3350 17 17 g PO DAILY PRN Constipation 11/21/24 11/21/24 History gram/dose oral powder Hospital Stay Data Consultations 11/21/24 07:40 ED Decision to Admit Stat 11/21/24 09:07 Consult Nephrology Routine Diagnostic Imagining Performed 11/21/24 05:18 CT head/brain wo con Stat 11/21/24 05:19 CT cervical spine wo con Stat CT facial bones wo con Stat 11/22/24 08:00 CT head/brain wo con Routine 11/23/24 07:00 CT head/brain wo con Routine Pending Results Patient Have Any Pending Studies at Discharge: No Discharge Instructions Given to Patient (Per Discharging Provider) You were admitted after a fall and noted to have a bleed on the brain called a "subdural hematoma." You have a history of stents and were on a combination of Aspirin and plavix. You will continue Aspirin 81 mg daily You will have a repeat CT of your head in 1 week. Please hold off on full DAPT for at least 6 weeks. Total Time Total Time Spent Total Time Spent (In Minutes): 45
[2024-11-23 11:41] VITALS: BP 171/69; PULSE 61; TEMP 98.4
== END 2024-11-23 12:32 | disposition home health service (06) | DRG 82 ==
LOC: ED 04:24 → EDINP 08:18 → SUATTDRO 08:18 → 2N 09:14